=== PATIENT | male | born 1940 | race Caucasian/White ===

== ENCOUNTER 2018-06-21 12:42 | Inpatient (IN) | payer MEDICARE ==
[~2018-06-21] VITALS: Ht 182.9 cm; Wt 149.0 kg
[~2018-06-21 12:42] MED LIST: ADVAIR 500/501 EA INH; ALPRAZOLAM1 MG PO; AMBIEN5 MG PO; AMLODIPINE BESYL5 MG PO; ASPIRIN PO; ATORVASTATIN CA10 MG PO; CARVEDILOL PO; CITALOPRAM PO; D 2000; FLONASE16 GM; FUROSEMIDE40 MG PO; GABAPENTIN300 MG PO; HUMALOG SLIDING; K DUR10 MEQ PO; LANTUS 3ML100 UNITS/ SQ; LANTUS100 UNITS/ SQ; METFORMIN PO; METHOCARBAMOL750 MG PO; NORCO 10MG-325MG1 EA PO; QUINAPRIL HCL20 MG PO; SPIRONOLACTONE25 MG PO; SYNTHROID125 MCG PO; VIT B 12 PO; VIT D 2000; ZETIA10 MG PO
--- OUTSIDE RECORDS SUMMARY | 2018-06-21 12:46 | XMS REPORT ---
Author Author [facility] Address Unknown Phone Unavailable Care Team Providers Care Environmental Engineering Professor Name Role Phone Unavailable Unavailable Payers Payer Name Policy Type Policy Number Effective Date Expiration Date Problems This patient has no known problems. Allergies, Adverse Reactions, Alerts Allergy Name Allergy Type Status Severity Reaction(s) Onset Date Inactive Date Treating Clinician Comments Penicillins DA Active 2018-05-19 00:00:00 Penicillins DA Active 2017-02-20 00:00:00 Medications This patient has no known medications. Results Test Description Test Time Test Comments Text Results Atomic Results Result Comments BASIC METABOLIC PANEL 2018-05-19 15:02:00 SODIUM (test code=NA) 135 mmol/L 136-145 POTASSIUM (test code=K) 4.3 mmol/L 3.5-5.1 CHLORIDE (test code=CL) 100.0 mmol/L 98-107 CARBON DIOXIDE (test code=CO2) 25.0 mmol/L 21-32 ANION GAP (test code=GAP) 14.3 10-20 GLUCOSE (test code=GLU) 353 mg/dL 74-106 BLOOD UREA NITROGEN (test code=BUN) 12 mg/dL 7-18 GLOMERULAR FILTRATION RATE (test code=GFR) 59 mL/min >=60 Estimated GFR by using Modified MDRD formula.Chronic kidney disease is defined as either kidney damageor GFR <60 mL/min/1.73 m2 for >3 months. CREATININE (test code=CREAT) 1.20 mg/dL 0.7-1.3 BUN/CREATININE RATIO (test code=BUN/CREA) 9.8 10-20 CALCIUM (test code=CA) 8.7 mg/dL 8.5-10.1 BASIC METABOLIC [id number] 14:57:00* Test Item Value Reference Range Comments SODIUM (test code=NA) 135 mmol/L 136-145 POTASSIUM (test code=K) 4.3 mmol/L 3.5-5.1 CHLORIDE (test code=CL) 100.0 mmol/L 98-107 CARBON DIOXIDE (test code=CO2) mmol/L 21-32 ANION GAP (test code=GAP) 10-20 GLUCOSE (test code=GLU) mg/dL 74-106 BLOOD UREA NITROGEN (test code=BUN) mg/dL 7-18 GLOMERULAR FILTRATION RATE (test code=GFR) mL/min >=60 CREATININE (test code=CREAT) mg/dL 0.7-1.3 BUN/CREATININE RATIO (test code=BUN/CREA) 10-20 CALCIUM (test code=CA) mg/dL 8.5-10.1 CBC W/O [id number] 14:44:00* Test Item Value Reference Range Comments WHITE BLOOD CELL (test code=WBC) 5.6 K/mm3 4.5-12.5 RED BLOOD CELL (test code=RBC) 4.89 mill/mm3 4.0-5.8 HEMOGLOBIN (test code=HGB) 14.0 gram/dL 13.0-17.5 HEMATOCRIT (test code=HCT) 43.5 % 42.0-52.0 MEAN CELL VOLUME (test code=MCV) 89.0 fL 80-98 MEAN CELL HGB (test code=MCH) 28.6 picogram 27.0-33.0 MEAN CELL HGB CONCETRATION (test code=MCHC) 32.2 gram/dL 33.0-36.0 RED CELL DISTRIBUTION WIDTH (test code=RDW) 14.6 % 11.6-16.2 PLATELET COUNT (test code=PLT) 147 K/mm3 150-450 MEAN PLATELET VOLUME (test code=MPV) 11.3 fL 6.7-11.0 CBC W/O [id number] 14:43:00* Test Item Value Reference Range Comments WHITE BLOOD CELL (test code=WBC) K/mm3 4.5-12.5 RED BLOOD CELL (test code=RBC) mill/mm3 4.0-5.8 HEMOGLOBIN (test code=HGB) 14.0 gram/dL 13.0-17.5 HEMATOCRIT (test code=HCT) 43.5 % 42.0-52.0 MEAN CELL VOLUME (test code=MCV) fL 80-98 MEAN CELL HGB (test code=MCH) picogram 27.0-33.0 MEAN CELL HGB CONCETRATION (test code=MCHC) gram/dL 33.0-36.0 RED CELL DISTRIBUTION WIDTH (test code=RDW) % 11.6-16.2 PLATELET COUNT (test code=PLT) K/mm3 150-450 MEAN PLATELET VOLUME (test code=MPV) fL 6.7-11.0 - XR L-SPINE 2/3 [id number] 14:23:00 FAX: Rodney Campoverde [place]: St: REG Name: FERNANDA GALLEGOS [facility] : 09/[birth year]/18 [birth year] Age/S: 77/M [address] [facility] Unit #: [id number] Loc: [place] [address] Phys: Rodney Campoverde MD Acct: [id number] Dis Date: Status: REG ER PHONE #: [phone] Exam Date: 05/19/2018 1347 FAX #: [phone] Reason: fall, pain EXAMS: CPT CODE: [id number] XR L-SPINE 2/3 VIEWS [id number] HISTORY: Fall and pain. COMPARISON: None available. 3 views of the lumbar spine: No acute fracture or dislocation. Vertebral body heights are main tained. Bridging anterolateral marginal osteophytes. SI joints are preserv ed. Sacralization of the L5 vertebral body. IMPRESSION: No acute fracture or dislocation. Advanced degenerative change. at 1423 Reported and signed by: Luisito Cardoza M.D. CC: Rodney Campoverde MD Technologist: ANTIONE QUINTERO RT(R) Trnhialivia Date/Time/By: 05/19 (7240) : By: [email or web address] Orig Print D/T: S: 05/19/2018 (5771) PAGE 1 Signed Report - XR HIP BI W/[id number] 13:52:00 FAX: Rodney Campoverde [place]: St: REG Name: FERNANDA GALLEGOS [facility] : 09/30/18 41 Age/S: 77/M [address] [facility] Unit #: [id number] Loc: [place] [address] Phys: Rodney Campoverde MD Acct: [id number] Dis Date: Status: REG ER PHONE #: [phone] Exam Date: 05/19/2018 1347 FAX #: [phone] Reason: fall, pain EXAMS: CPT CODE: [id number] XR HIP BI W/PELVIS [id number] HISTORY: Fall and pain. COMPARISON: None available. 3 views each of the right and left hips: Pelvic ring is intact on a single view this is well opposed. SI joints are preserved. Both hip joints are mildly narrowed. No AVN of the lunate or the scaphoid bones. Osteophytes from the greater trochanters bilaterally. Trabecular pattern and mineralization are normal bilat erally. SI joints are preserved. IMPRESSION: N o acute fracture or dislocation. Narrowed hip joints. at 7390 Reported and signed by: Luisito Cardoza M.D. CC: Rodney Campoverde MD Technologist: QUINN QUINTERO RT(R) Trnscrd Date/Time/By: 05/19/2018 (6530) : By: [email or web address] Orig Print D/T: S: 05/19/2018 (7793) PAGE 1 Signed Report
[2018-06-21 15:54] LABS: BASOPHILS % 0.3 % (0.0-1.0); EOSINOPHILS % 0.2 % (0.0-6.0); HEMATOCRIT 40.6 % (38.2-49.6); HEMOGLOBIN 13.3 g/dL (14.0-18.0); LYMPHOCYTES # (AUTO) 1.8 (1.0-3.2); MEAN CORPUSCULAR HGB CONC 32.8 g/dL (31-35); MEAN CORPUSCULAR VOLUME 88.5 fL (81-99); MONOCYTES # (AUTO) 1.5 (0.2-0.8); MONOCYTES % 15.6 % (4.4-11.3); NEUTROPHILS # (AUTO) 6.4 (2.1-6.9); NEUTROPHILS % 64.9 % (38.7-80.0); PLATELET COUNT 181 x10e3/uL (140-360); RED BLOOD COUNT 4.59 x10e6/uL (4.3-5.7); RED CELL DISTRIBUTION WIDTH 15.4 % (11.7-14.4)
[2018-06-21 16:09] LABS: ALBUMIN 3.9 g/dL (3.5-5.0); ANION GAP 15.2 mmol/L (8-16); CALCIUM 9.2 mg/dL (8.4-10.2); CREATININE, SERUM 1.48 mg/dL (0.72-1.25); POTASSIUM 4.2 mmol/L (3.5-5.1)
[2018-06-21 16:26] LABS: CLARITY,URINE HAZY (CLEAR); COLOR,URINE YELLOW (YELLOW); LEUKOCYTE ESTERASE ,URINE NEGATIVE (NEGATIVE); NITRITE,URINE NEGATIVE (NEGATIVE); PROTEIN,URINE DIPSTICK NEGATIVE (NEGATIVE)
[2018-06-21 16:27] LABS: BACTERIA,URINE FEW /HPF; BILIRUBIN,URINE NEGATIVE (NEGATIVE); EPITHELIAL CELLS,URINE FEW /LPF; KETONES,URINE NEGATIVE (NEGATIVE); URINE UROBILINOGEN 0.2 mg/dL (0.2 - 1); WBC,URINE (MAN) 0-5 /HPF (0-5)
[2018-06-21 17:15] LABS: BAND NEUTROPHILS % (MANUAL) 6 %; LYMPHOCYTES % (MANUAL) 14 % (19-48); MONOCYTES % (MANUAL) 12 % (3.4-9.0); NEUTROPHILS % (MANUAL) 68 % (40-74); PLATELET ESTIMATE ADEQUATE; PLATELET MORPHOLOGY COMMENT NORMAL; RBC MORPHOLOGY COMMENT NORMAL
[2018-06-21] MEDS ORDERED: DEXTROSE 50% SYRINGE 50 ML IV PRN (17:30)
[2018-06-21] MEDS ORDERED: ONDANSETRON HCL INJ 2MG/ML 2ML 2 MG/ML VIAL IV PRN (17:30)
[2018-06-21] MEDS: MORPHINE SULFATE INJ 4 MG/ML INJ 1ML IV PRN (18:12)
[2018-06-21] MEDS: SODIUM CHLORIDE 0.9% 1000ML 1,000 ML IV SCH (18:12)
[2018-06-21] MEDS: CEFEPIME 1GM/NS 0.9% 50 ML 50 ML IV SCH (18:12)
[2018-06-21] MEDS: VANCOMYCIN 1GM/NS 250 ML 250 ML IV SCH (18:47)
--- NOTE | 2018-06-21 19:00 | NUR ---
received report from RAMON Blanco. pt awake alert skin w/d resp nonlab. nad noted.
--- NOTE | 2018-06-21 20:55 | NUR ---
sl 20g racf infusing ns, site appears wnl. awake alert skin w/d resp nonlab, nad noted
[2018-06-21 21:05] VITALS: BP 157/71
[2018-06-21] MEDS: INSULIN LISPRO 100 UNIT/1 ML 3ML VIAL SQ SCH (22:56)
[2018-06-22] VITALS (10 sets, daily range): BP systolic 128–185; BP diastolic 46–77
--- NOTE | 2018-06-22 00:30 | NUR ---
Patient received lying in bed. No complaints of pain. Respirations even and unlabored. Fall precautions implemented. Patient instructed to call for assistance when needed. Call light within reach.
[2018-06-22] MEDS: MORPHINE SULFATE INJ 4 MG/ML INJ 1ML IV PRN ×3 (01:41→23:22)
[2018-06-22] MEDS: SODIUM CHLORIDE 0.9% 1000ML 1,000 ML IV SCH ×3 (01:41→17:31)
[2018-06-22] MEDS: CEFEPIME 1GM/NS 0.9% 50 ML 50 ML IV SCH ×2 (05:29→17:31)
[2018-06-22 06:09] LABS: BASOPHILS % 0.3 % (0.0-1.0); EOSINOPHILS % 0.4 % (0.0-6.0); HEMATOCRIT 38.3 % (38.2-49.6); HEMOGLOBIN 12.5 g/dL (14.0-18.0); LYMPHOCYTES # (AUTO) 2.6 (1.0-3.2); LYMPHOCYTES % 25.6 % (18.0-39.1); MEAN CORPUSCULAR HEMOGLOBIN 29.6 pg (28-32); MEAN CORPUSCULAR HGB CONC 32.6 g/dL (31-35); MEAN CORPUSCULAR VOLUME 90.5 fL (81-99); MONOCYTES # (AUTO) 2.1 (0.2-0.8); MONOCYTES % 20.9 % (4.4-11.3); NEUTROPHILS # (AUTO) 5.2 (2.1-6.9); NEUTROPHILS % 52.1 % (38.7-80.0); PLATELET COUNT 175 x10e3/uL (140-360); RED BLOOD COUNT 4.23 x10e6/uL (4.3-5.7); RED CELL DISTRIBUTION WIDTH 15.6 % (11.7-14.4)
[2018-06-22] MEDS: VANCOMYCIN 1GM/NS 250 ML 250 ML IV SCH ×2 (06:25→19:03)
[2018-06-22 06:40] LABS: CALCIUM 8.6 mg/dL (8.4-10.2); CREATININE, SERUM 1.19 mg/dL (0.72-1.25)
[2018-06-22] MEDS ORDERED: ALPRAZOLAM 1 MG TAB PO PRN (07:30)
[2018-06-22] MEDS ORDERED: INSULIN GLARGINE SQ SCH ×2 (07:30→16:30)
[2018-06-22] MEDS ORDERED: SALMETEROL/FLUTICASONE 500/50 INH SCH (07:30)
[2018-06-22] MEDS ORDERED: HYDROCODONE/APAP 10MG-325MG TAB PO PRN (07:30)
[2018-06-22] MEDS ORDERED: SALMETEROL/FLUTICASONE 500/50 INH PRN (08:15)
[2018-06-22] MEDS ORDERED: METFORMIN 1000 MG PO SCH (09:00)
[2018-06-22] MEDS ORDERED: CARVEDILOL 25 MG PO SCH (09:00)
[2018-06-22] MEDS ORDERED: NON-FORMULARY MEDICATION (Quinapril Hcl 40 MG) PO SCH (09:00)
[2018-06-22] MEDS ORDERED: VIT B PO SCH (09:00)
[2018-06-22] MEDS ORDERED: METFORMIN HCL 500 MG TAB PO SCH (09:00)
[2018-06-22] MEDS ORDERED: NON-FORMULARY MEDICATION ([Aspirin] 81 MG) PO SCH (09:00)
[2018-06-22] MEDS ORDERED: CITALOPRAM 20 MG PO SCH (09:00)
[2018-06-22 09:33] LABS: LYMPHOCYTES % (MANUAL) 19 % (19-48); MONOCYTES % (MANUAL) 25 % (3.4-9.0); NEUTROPHILS % (MANUAL) 53 % (40-74)
[2018-06-22 09:35] LABS: PLATELET ESTIMATE ADEQUATE; PLATELET MORPHOLOGY COMMENT NORMAL; RBC MORPHOLOGY COMMENT NORMAL
[2018-06-22] MEDS: QUINAPRIL HCL 20 MG TAB PO SCH (10:29)
[2018-06-22] MEDS: CARVEDILOL 12.5 MG TAB PO SCH ×2 (10:30→17:31)
[2018-06-22] MEDS: EZETIMIBE 10 MG TAB PO SCH (10:30)
[2018-06-22] MEDS: CITALOPRAM HYDROBROMIDE 20 MG TAB PO SCH (10:30)
[2018-06-22] MEDS: FUROSEMIDE 40 MG TAB PO SCH (10:30)
[2018-06-22] MEDS: CYANOCOBALAMIN 1,000 MCG TAB PO SCH (10:30)
[2018-06-22] MEDS: SPIRONOLACTONE 25 MG TAB PO SCH (10:30)
[2018-06-22] MEDS: ASPIRIN 81 MG ENTERIC COATED PO SCH (10:30)
[2018-06-22] MEDS: LEVOTHYROXINE SODIUM 125 MCG TAB PO SCH (10:30)
[2018-06-22] MEDS: AMLODIPINE BESYLATE 5 MG TAB PO SCH ×2 (10:30→17:31)
[2018-06-22] MEDS: INSULIN LISPRO 100 UNIT/1 ML 3ML VIAL SQ SCH ×3 (11:30→21:35)
[2018-06-22] MEDS: HYDROCODONE/APAP 10MG-325MG TAB PO PRN (14:09)
--- NOTE | 2018-06-22 15:50 | NUR ---
Wound care provided at this time. Betadine applied to site. Clean gauze over heels and rewrapped in clean SILVIA bandage. [place] administered before to prevent pain during wound care. Pt tolerated well.
[2018-06-22] MEDS: METFORMIN HCL 500 MG TAB PO SCH (17:31)
[2018-06-22] MEDS: INSULIN GLARGINE 100 UNITS/ML VIAL SQ SCH (19:04)
[2018-06-22] MEDS ORDERED: ATORVASTATIN 10 MG TAB PO SCH (21:00)
[2018-06-22] MEDS: ZOLPIDEM TARTRATE 5 MG TAB PO SCH (21:35)
[2018-06-22] MEDS: GABAPENTIN 300 MG CAP PO SCH (21:35)
[2018-06-22] MEDS: ATORVASTATIN 40 MG TAB PO SCH (21:35)
[2018-06-23] VITALS (7 sets, daily range): BP systolic 112–134; BP diastolic 56–61
[2018-06-23] MEDS: HYDROCODONE/APAP 10MG-325MG TAB PO PRN (00:02)
--- NOTE | 2018-06-23 02:20 | History and Physical ---
REASON FOR ADMISSION: The patient came in with difficulty to maintain balance, history of frequent falls, and erythema and tenderness to bilateral heels. HISTORY OF PRESENTING ILLNESS: Mr. Shahriar Odonnell, who with a known history of uncontrolled diabetes, uncontrolled hypertension and history of coronary artery disease, CHF, history of hyperlipidemia, neuropathy, was in his usual state of health until the patient started to have frequent falls and could not be controlled at home. The patient was in this state for about the last 2 weeks. Also had cellulitis and erythema and tenderness into the heels. The patient was unable to care for himself and the patient was brought to the emergency room, was found to have cellulitis of the bilateral heels and admitted to observation unit for IV medication and also for control of blood pressure and blood sugars. PAST MEDICAL HISTORY: As mentioned above, history of hypertension, history of anxiety, history of hyperlipidemia, history of depression, history of COPD, history of hypothyroidism, history of depression, and history of insomnia. MEDICINES: He takes at home are acetaminophen with codeine 1 tablet 3 times a day, alprazolam 1 mg 3 times a day p.r.n., amlodipine 5 mg daily, atorvastatin 40 mg at bedtime, Zetia 10 mg at nighttime, fluticasone nasal spray once a day, Lasix 40 mg daily, gabapentin 300 mg daily, Lantus 35 units subcu and 65 units in the morning and bedtime, levothyroxine 125 mcg, Advair 500/50, aldactone 25 mg, and zolpidem 5 mg. The patient also takes carvedilol 25 mg twice a day, citalopram 20 mg daily, metformin 1000 mg twice a day. PAST SURGICAL HISTORY: Includes history of AICD placement. The patient had removal of ingrown toenails. FAMILY HISTORY: History of diabetes and hypertension and coronary artery disease. REVIEW OF SYSTEMS: Negative for chest pain. No shortness of breath. No nausea, vomiting, or diarrhea. No constipation. No rectal bleeding. No hematochezia. No hematemesis. Positive for neuropathy. Positive for decreased sensation in lower extremity. History of falling frequently and history of diplopia. No blurry vision either. ALLERGIES: THE PATIENT IS ALLERGIC TO PENICILLIN. PHYSICAL EXAMINATION: VITAL SIGNS: Temperature 98.7, pulse of 72, respirations of 21, blood pressure is 129/46, pulse oximetry of 98% on room air. HEENT: Normocephalic, atraumatic. Pupils are reactive to light and accommodation. CVS: S1, S2 normal. Regular rate and rhythm. ABDOMEN: Nontender, nondistended. EXTREMITIES: Decreased sensation in bilateral lower extremities. SKIN: Stage II foul smelling left heel ulcer and right lateral foot ulcer 5th metacarpophalangeal joint. EXTREMITIES: Decreased range of motion in the ankle with osteoarthritic changes. LABORATORY DATA: White count is 9.87, today is 10.05; hemoglobin of 13.3, hematocrit of 40.6. The patient does not have a left shift. Chemistries; sodium of 136 with a creatinine of 1.48. Estimated GFR is 46 with a glucose of 222. The patient's urine was essentially normal. MICROBIOLOGY: Urine cultures are pending. IMAGING: None were done yesterday. ASSESSMENT: 1. Cellulitis of bilateral lower extremities with possible osteomyelitis. A bone scan will be done to rule out osteo. 2. Urinary tract infection, catheter associated. We will continue to monitor it and culture has been done. 3. Diabetes mellitus with neuropathy. We will go ahead and also do arterial Doppler vascularity. 4. Neuropathy, controlled. The patient is on gabapentin and we will continue that. 5. Uncontrolled diabetes mellitus. We will continue with sliding scale. Consult with Dr. Zacarias will also would be done for chronic cellulitis of the lower extremity. Cultures will be taken from the foot and also a consult with Dr. Goodwin has been done. FURTHER RECOMMENDATION AND CLINICAL COURSE: The patient will need long-term care. We will start the process right now, but the patient will be seen by the consultants and we will continue to monitor the patient. MD DENIS Tesfaye/MODL /[id number]
[2018-06-23] MEDS: MORPHINE SULFATE INJ 4 MG/ML INJ 1ML IV PRN ×2 (03:35→22:06)
[2018-06-23] MEDS: SODIUM CHLORIDE 0.9% 1000ML 1,000 ML IV SCH ×3 (03:37→17:21)
[2018-06-23] MEDS: CEFEPIME 1GM/NS 0.9% 50 ML 50 ML IV SCH ×2 (05:36→17:21)
[2018-06-23] MEDS: LEVOTHYROXINE SODIUM 125 MCG TAB PO SCH (05:43)
[2018-06-23 05:50] LABS: BASOPHILS % 0.4 % (0.0-1.0); EOSINOPHILS % 0.5 % (0.0-6.0); HEMOGLOBIN 10.8 g/dL (14.0-18.0); LYMPHOCYTES % 38.7 % (18.0-39.1); MEAN CORPUSCULAR HEMOGLOBIN 29.3 pg (28-32); MEAN CORPUSCULAR HGB CONC 32.7 g/dL (31-35); MEAN CORPUSCULAR VOLUME 89.7 fL (81-99); MONOCYTES # (AUTO) 1.3 (0.2-0.8); MONOCYTES % 16.1 % (4.4-11.3); NEUTROPHILS # (AUTO) 3.4 (2.1-6.9); NEUTROPHILS % 43.8 % (38.7-80.0); PLATELET COUNT 145 x10e3/uL (140-360); RED BLOOD COUNT 3.68 x10e6/uL (4.3-5.7); RED CELL DISTRIBUTION WIDTH 15.5 % (11.7-14.4)
[2018-06-23] MEDS: VANCOMYCIN 1GM/NS 250 ML 250 ML IV SCH ×2 (06:13→18:33)
[2018-06-23 06:19] LABS: ANION GAP 11.7 mmol/L (8-16); CALCIUM 8.2 mg/dL (8.4-10.2); CREATININE, SERUM 1.52 mg/dL (0.72-1.25); POTASSIUM 3.7 mmol/L (3.5-5.1)
[2018-06-23] MEDS: INSULIN LISPRO 100 UNIT/1 ML 3ML VIAL SQ SCH ×4 (07:30→21:00)
[2018-06-23] MEDS: SPIRONOLACTONE 25 MG TAB PO SCH (08:33)
[2018-06-23] MEDS: QUINAPRIL HCL 20 MG TAB PO SCH (08:33)
[2018-06-23] MEDS: ASPIRIN 81 MG ENTERIC COATED PO SCH (08:33)
[2018-06-23] MEDS: CITALOPRAM HYDROBROMIDE 20 MG TAB PO SCH (08:33)
[2018-06-23] MEDS: METFORMIN HCL 500 MG TAB PO SCH ×2 (08:33→17:21)
[2018-06-23] MEDS: CARVEDILOL 12.5 MG TAB PO SCH ×2 (08:33→17:21)
[2018-06-23] MEDS: FUROSEMIDE 40 MG TAB PO SCH (08:34)
[2018-06-23] MEDS: AMLODIPINE BESYLATE 5 MG TAB PO SCH ×2 (08:34→17:21)
[2018-06-23] MEDS: CYANOCOBALAMIN 1,000 MCG TAB PO SCH (08:34)
[2018-06-23] MEDS: EZETIMIBE 10 MG TAB PO SCH (08:34)
[2018-06-23] MEDS: INSULIN GLARGINE 100 UNITS/ML VIAL SQ SCH ×2 (09:05→18:21)
--- NOTE | 2018-06-23 13:17 | Progress Note ---
DATE: SUBJECTIVE: The patient is here for cellulitis of the bilateral lower feet and also heels, questionable osteomyelitis. Currently, the patient is complaining of pain 8/10 in intensity. Has been on pain medications. No chest pain. No shortness of breath noted. OBJECTIVE: VITAL SIGNS: Temperature is 96.5, pulse of 69, respiration of 20, blood pressure is 124/56, pulse oximetry of 92%. HEENT: Normocephalic, atraumatic. The patient does have signs of sleep apnea. CVS: S1 and S2 normal. Regular rate, rhythm and distant. LUNGS: Decreased air entry into lung france in the bottom. ABDOMEN: Protuberant, nontender, nondistended. EXTREMITIES: Bilateral feet are bandaged. LABORATORY VALUES: Today's white count is 7.8, hemoglobin of 10.8, hematocrit of 33.0. Chemistries; show a BUN of 24, creatinine of 1.52, glucose has been running in the 190s to 200s. The patient's microbiology, urine cultures shows no growth in 36 to 48 hours. No culture from the wound has been taken yet. ASSESSMENT AND PLAN: 1. Cellulitis of bilateral lower extremities with possible osteomyelitis. Bone scan to be ordered and has been ordered and has been not done. 2. Urinary tract infection. Continue on antibiotics. 3. Diabetes mellitus with neuropathy and angiopathy. Plan is to do arterial Doppler to assess for vascular insufficiency. 4. Uncontrolled diabetes mellitus. Continue with sliding scale and restart his home medication. Further recommendation per clinical course. Consult has been ordered for Dr. Goodwin and Dr. Zacarias for Infectious Disease. Further recommendation per clinical course. The patient also will need a wound care consult. Also disposition once acute treatment has been done. The patient will need transfer to either halfway facility or long-term care facility. MD DENIS Tesfaye/MODL /[id number]
--- NOTE | 2018-06-23 13:54 | NUR ---
Wound culture obtained from L heel on pt's foot as ordered. Was not able to obtain wound culture from R foot due to skin being intact/ covered in black scabbing. Culture sent to lab at this time.
--- NOTE | 2018-06-23 14:43 | NUR ---
WOUND CARE CONSULT: THIS IS A 77 YEAR OLD MALE PATIENT ADMITTED TO [facility] FOR INFECTED DIABETIC FOOT ULCER TO THE LEFT HEEL AND UNABLE TO WALK AND CARE FOR. HEAD TO TOE SKIN ASSESSMENT PERFORMED. PATIENT HAS BILATERAL UPPER EXTREMITY BRUISES. PATIENT HAS A STAGE 2 PRESSURE ULCER TO THE LEFT BUTTOCKS MEASURING 0.5X0.5X0.1CM. PATIENT HAS A LEFT HEEL DIABETIC ULCER GROVER 2, MEASURING 2X2.5X0.3CM, 95% ESCHAR AND 5% SLOUGH NOTED TO WOUND BED. PATIENT HAS A RIGHT HEEL DEEP TISSUE INJURY MEASURING [id number]. PATIENT HAS A RIGHT 5TH METATARSAL HEAD DEEP TISSUE INJURY MEASURING [id number]. PATIENT HAS A RIGHT GREAT TOE GROVER 1 DIABETIC ULCER MEASURING 0.7X0.8X0CM, 100% STABLE ESCHAR TO WOUND BED. PATIENT HAS 1+ PITTING EDEMA TO BILATERAL LOWER LEGS, PULSES UNABLE TO PALPATE. DR. SIMMS FOLLOWS PATIENT OUTPATIENT AND HE HAS BEEN CONSULTED TO FOLLOW THE PATIENT. DR. SIMMS EXPECTED TO ROUND TODAY PER PATIENT. LABS: WBC7.81 [id number] WOUND CULTURE PENDING. URINE CULTURE = NEGATIVE LOWER EXTREMITY U/S = PENDING. MEDICATIONS: VANCOMYCIN CEFEPIME RECOMMENDATIONS: -CONTINUE ALTERNATING PRESSURE RELIEF MATTRESS. -APPLY BILATERAL HEEL PROTECTORS WITH PILLOW SUSPENSION. -TURN EVERY 2 HOURS AND PRN. -NURSING TO APPLY BETADINE WET TO DRY TO LEFT HEEL DIABETIC ULCER GROVER 2 AND RIGHT GREAT TOE GROVER 1 DIABETIC ULCER; COVER WITH 4X4 GAUZE, KERLIX; CHANGE DAILY AND PRN. -NURSING TO APPLY VENELEX THEN ALLEVYN FOAM DRESSING TO STAGE 2 PRESSURE ULCER TO LEFT BUTTOCK; CHANGE DAILY AND PRN. -NURSING TO APPLY VENELEX THEN ALLEVYN FOAM DRESSING TO RIGHT HEEL DTI AND RIGHT 5TH MET HEAD DTI; CHANGE DAILY AND PRN. THANK YOU FOR THIS WOUND CARE CONSULTATION. Addendum: 06/23/18 at 1512 by Ebony Fierro RN Amended: Links added.
--- NOTE | 2018-06-23 15:41 | NUR ---
WENT TO ROOM NO ONE THERE WILL ATTEMPT AGAIN LATER
--- NOTE | 2018-06-23 17:25 | Diagnostic Imaging Report ---
Bone Scan, three-phase - feet and ankles Reason for exam: 77 M with Stage II diabetic foot ulcer at left heel. Cellulitis of both lower legs and feet. Severe neuropathy with diffuse foot pain. Also ulcer at right 5th metatarsophalangeal joint. Radiopharmaceutical: Tc-99m MDP 24 mCi Comparison: None available Following intravenous administration of the radiopharmaceutical, dynamic flow and immediate blood pool images of the feet and ankles followed by 5-hour delayed spot images were obtained. Flow and blood pool images show diffusely symmetric distribution of tracer activity to the feet and ankles with focal increased tracer activity at the right 5th toe and superficially overlying the left calcaneus posteriorly. The delayed images show multiple focal areas of increased tracer activity in the bilateral feet and ankles consistent with degenerative and neuropathic changes. Increased tracer is seen along the right 5th metatarsal and also superficially around the left calcaneus posteriorly. Impression: Suspect osteomyelitis in the right 5th metatarsal. Uptake at the left calcaneus posteriorly appears to be within soft tissue. Bone scan lacks specificity in the setting of diabetic foot ulcers. A labeled white blood cell study would add specificity to the evaluation. Signed by: Dr. Margarita Mckeon M.D. on 06/23/2018 5:21 PM
--- NOTE | 2018-06-23 19:29 | NUR ---
Received report from previous nurse. Patient A&Ox3. No pain or distress noted. Call light within reach.
--- NOTE | 2018-06-23 19:34 | Diagnostic Imaging Report ---
Foot complete left Indication: Infection Technique: Portable A.P. oblique and lateral views of the left foot obtained Comparison: None Findings: There are anchors in the posterior calcaneus with prominent plantar and calcaneal spurs. There are degenerative changes of the ankle and midfoot. Moderate degenerative changes of the first MTP and mild generative changes of the first IP joint. No fracture or dislocation. No focal demineralization or focal osseous lesion. There are calcifications throughout the vascular structures. No focal subcutaneous edema or skin ulceration identified. IMPRESSION: No radiographic evidence of osteomyelitis. Degenerative changes as described above. Signed by: Dr. Xander Salguero MD on 06/23/2018 7:31 PM
--- NOTE | 2018-06-23 19:37 | Diagnostic Imaging Report ---
Foot complete CPT code: 05762 Indication: Infection ^3 view ^[id number] ^1820 Technique: Portable A.P., oblique and lateral views of the right foot obtained. Comparison: None Findings: There are prominent plantar spurs. There are vlla-qt-[id number] degenerative changes of the tibiotalar joint and midfoot. There is a mildly displaced fracture through the base of the proximal phalanx of the first digit with extension to the articular surface. There are degenerative changes of the IP joint of the first digit. There is no evidence of periosteal new bone formation or skin ulceration. Multiple arterial calcifications are present throughout the soft tissues. No skin ulceration is appreciated or evidence of subcutaneous emphysema. IMPRESSION: No radiographic evidence of osteomyelitis. Fracture of the proximal phalanx of the first digit as described above. Signed by: Dr. Xander Salguero MD on 06/23/2018 7:34 PM
[2018-06-23] MEDS: ATORVASTATIN 40 MG TAB PO SCH (21:43)
[2018-06-23] MEDS: ZOLPIDEM TARTRATE 5 MG TAB PO SCH (21:43)
[2018-06-23] MEDS: GABAPENTIN 300 MG CAP PO SCH (21:43)
--- NOTE | 2018-06-23 23:35 | Consultation ---
DATE OF CONSULTATION: REASON FOR CONSULTATION: Infection of his foot osteomyelitis. Thank you so much for asking me to see this patient. HISTORY OF PRESENT ILLNESS: This patient, who is a very pleasant 77-year-old white male with history of diabetes mellitus, history of neuropathy, hypertension, coronary artery disease, congestive heart failure, hyperlipidemia, and obesity. The patient is telling me he has been having problem with his feet for several years, but for the last few weeks, he has been having ulcers on his feet. He has been seeing Podiatry, Dr. Goodwin, as outpatient. He took a couple of courses of oral antibiotic, but it has been getting progressively worse over the last 2 weeks and in spite all of that, there is redness and swelling in his feet going to his heel. The ulcers are getting progressively worse. The pain is becoming so severe that he cannot even stand on his feet, so he came to the emergency room. Originally, he was admitted to observation with IV antibiotic and glucose control; however, the workup found he had osteomyelitis, so I am asked to see him. He is currently lying in bed. He stated he is feeling better at the present time. The patient has no other complaints, except for the pain in his feet, otherwise lying in bed comfortably. PAST MEDICAL HISTORY: Significant for hypertension, obesity, anxiety, hyperlipidemia, depression, COPD, hypothyroidism, insomnia, and severe neuropathy. HOME MEDICATIONS: He is on acetaminophen, codeine, Tylenol tablet 1 p.o. three times a day, alprazolam 1 mg p.o. three times a day, amlodipine 5 mg p.o. daily, atorvastatin 40 mg daily, Zetia 10 mg at night. He is on fluticasone nasal spray once a day, Lasix 40 mg daily, gabapentin 300 mg daily, and insulin subcutaneous 65 units in the morning of the Lantus and he has also 65 before he goes to bed, levothyroxine 125 mcg daily, Advair 500/50, Aldactone 25, zolpidem 5 mg, carvedilol 25 mg p.o. twice a day, citalopram 20 mg p.o. daily, and metformin 1000 mg p.o. twice a day. PAST SURGICAL HISTORY: He had multiple debridements, he had ingrown toenails, and he also had AICD placement. FAMILY HISTORY: Hypertension and coronary artery disease. SOCIAL HISTORY: He denies smoking, drug abuse, alcohol abuse, but he does drink beer. REVIEW OF SYSTEMS: At the present time: GENERAL: There is no fever and no chills, but he said he cannot walk because of severity of the pain. HEENT: There is no headache, visual changes, or hearing changes. SKIN: There is no rash, but he has some bruising after he hit the door and has bruising on his right hand. JOINT: He has chronic pain in the joint. PULMONARY: He has chronic shortness of breath, but some minimal dry cough. LABORATORY DATA: White count 9.87, hemoglobin 13, hematocrit 40. His sodium 133, potassium 3.7, creatinine 1.52, glucose 197. MEDICATIONS: He is on metformin, Coreg, Norvasc , Lasix, aspirin, , vancomycin. IMAGING STUDIES: He had a bone scan, which was done showed osteomyelitis of the right 5th metatarsal. Uptake in the left calcaneus, which appears to be within soft tissue. PHYSICAL EXAMINATION: GENERAL: He is currently alert and oriented, does not seem to be in acute distress. VITAL SIGNS: Stable, currently afebrile. HEENT: He is not icteric. NECK: Supple. CHEST: Clear bilateral. HEART: S1 and S2. No S3, S4, or murmur. ABDOMEN: Soft. Bowel sounds present. No tenderness. Obese. No hepatosplenomegaly. EXTREMITIES: No edema. His pulse distally was weak. IMPRESSION: 1. Foot ulcer bilateral, concerned about osteomyelitis on bone scan noted. I would recommend to obtain bilateral x-ray of the feet. Podiatry has been consulted. We would also recommend Vascular workup to rule out severe peripheral vascular disease. 2. In terms of his diabetes and hypothyroidism, continue as ordered. 3. History of congestive heart failure. 4. Neuropathy. 5. Diabetes mellitus. 6. Chronic obstructive pulmonary disease. 7. Coronary artery disease. 8. Hypertension. 9. Diabetes mellitus. 10. Severe neuropathy. 11. Obesity. So to summarize, bilateral lower extremity cellulitis, concerned about osteomyelitis, abnormal bone scan, obtain x-ray. May need MRI. Also, recommend to obtain vascular workup. Internal Medicine is following. We will follow with you. MD GHISLAINE Alan/VINICIUS /[id number]
[2018-06-24] VITALS (8 sets, daily range): BP systolic 108–158; BP diastolic 54–68
--- NOTE | 2018-06-24 00:44 | Consultation ---
DATE OF CONSULTATION: CHIEF COMPLAINT AND HISTORY OF CHIEF COMPLAINT: Mr. Shahriar Odonnell is a most pleasant 77-year-old gentleman with severe pain in bilateral feet, worst ulcer is on the posterolateral aspect of the left heel. This is full thickness through skin and subcutaneous tissue measuring approximately 3 cm in circumference. There is also a wound sub-fifth, right foot covered with a darkened dry eschar. The patient is here for a complaint of cellulitis, bilateral feet. PREVIOUS MEDICAL HISTORY: Quite significant including diabetes, hypertension, anxiety, hyperlipidemia, and COPD. REVIEW OF SYSTEMS: The patient has no other complaint, bilateral foot pain and ulcerations currently. ALLERGIES: HE IS ALLERGIC TO PENICILLIN. PHYSICAL EXAMINATION: EXTREMITIES: Evaluation of the lower extremity vascular status, the patient has nonpalpable pedal pulses in the dorsalis pedis and posterior tibial. SKIN: Temperature is warm to cool. Capillary refill is sluggish, greater than 10 seconds. NEUROLOGICAL: The patient has a loss of protective sensation as evidenced by Decker-Mignon monofilament testing. DERMATOLOGICAL: Chronic ulceration posterolateral aspect of the left heel, full thickness through skin, subcutaneous tissue, approximately 3 cm in circumference with a necrotic wound base and surrounding cellulitis. There is a 2nd wound on the plantar aspect of the right 5th metatarsal with a thickened dry eschar overlying, and bone scan shows probable osteomyelitis of the right 5th metatarsal. No osteomyelitis is noted on the left heel. DIAGNOSES: Cellulitis, probable osteomyelitis, chronic wounds, bilateral feet. At this point, radiographs have been ordered and he will need further workup for possible osteo. Dr. Zacarias is on-board and has initiated IV antibiotics. The wounds will need debridement, bilateral feet and local wound care. We will follow accordingly. NICK Carmen/VINICIUS /[id number]
[2018-06-24 05:43] LABS: ANION GAP 10.5 mmol/L (8-16); BLOOD UREA NITROGEN 22 mg/dL (7-26); BUN/CREATININE RATIO 20 (6-25); CALCIUM 8.2 mg/dL (8.4-10.2); CARBON DIOXIDE 23 mmol/L (22-29); CHLORIDE 105 mmol/L (98-107); CREATININE, SERUM 1.09 mg/dL (0.72-1.25); EST GLOMERULAR FILTRATION RATE > 60 ML/MIN (60-); POTASSIUM 3.5 mmol/L (3.5-5.1); SODIUM 135 mmol/L (136-145)
[2018-06-24] MEDS: CEFEPIME 1GM/NS 0.9% 50 ML 50 ML IV SCH ×2 (05:43→17:16)
[2018-06-24 05:44] LABS: GLUCOSE 50 mg/dL (74-118)
[2018-06-24] MEDS: LEVOTHYROXINE SODIUM 125 MCG TAB PO SCH (05:44)
[2018-06-24] MEDS: VANCOMYCIN 1GM/NS 250 ML 250 ML IV SCH ×2 (06:25→18:00)
--- NOTE | 2018-06-24 07:28 | NUR ---
Walking rounds done and report received. patient is awake and alertx3 in NAD. POC discussed. Patient instructed to call for assistance as needed and verbalized understanding. Bed in lowest position, locked and call chance within reach.
--- NOTE | 2018-06-24 07:29 | NUR ---
Gave report to oncoming nurse. NO pain or distress noted. Call light within reach.
[2018-06-24] MEDS: INSULIN LISPRO 100 UNIT/1 ML 3ML VIAL SQ SCH ×4 (07:30→20:51)
[2018-06-24] MEDS: SODIUM CHLORIDE 0.9% 1000ML 1,000 ML IV SCH ×4 (09:25→20:51)
[2018-06-24] MEDS: INSULIN GLARGINE 100 UNITS/ML VIAL SQ SCH ×2 (09:30→16:30)
[2018-06-24] MEDS: SPIRONOLACTONE 25 MG TAB PO SCH (09:35)
[2018-06-24] MEDS: METFORMIN HCL 500 MG TAB PO SCH ×2 (09:35→17:15)
[2018-06-24] MEDS: CITALOPRAM HYDROBROMIDE 20 MG TAB PO SCH (09:35)
[2018-06-24] MEDS: ASPIRIN 81 MG ENTERIC COATED PO SCH (09:35)
[2018-06-24] MEDS: BALSAM PERU/CASTOR OIL 5 GM OINT...G. TP SCH (09:36)
[2018-06-24] MEDS: FUROSEMIDE 40 MG TAB PO SCH (09:36)
[2018-06-24] MEDS: CYANOCOBALAMIN 1,000 MCG TAB PO SCH (09:36)
[2018-06-24] MEDS: CARVEDILOL 12.5 MG TAB PO SCH ×2 (09:36→17:15)
[2018-06-24] MEDS: AMLODIPINE BESYLATE 5 MG TAB PO SCH ×2 (09:36→17:16)
[2018-06-24] MEDS: EZETIMIBE 10 MG TAB PO SCH (09:36)
--- NOTE | 2018-06-24 12:24 | NUR ---
SOCIAL WORK INITIAL ASSESSMENT Transmission Inspector to bedside to discuss plan of care with patient/family. CM/SW role and care transitions discussed. Anticipated discharge plan discussed along with duration of care. CM/SW discussed patients right to make decisions in care. CM/SW work hours given. Patient lives: IN HOUSE WITH Admit/Transfer: VIA ED FROM HOME POA/Emergency contact: DOTTIE RODRIGUEZ ON FILE Current/Previous Home Health: NONE PCP/Follow-up Care: DENZEL Current/Previous DME: [employer] Other Services: NONE Employment Status: RETIRED Areas of Concerns: WANTS SNF Referral Needs: [facility], SIGNED CHOICE Education Needs: NONE IMM/TAMAYO given and signed (if applicable): IMM SIGNED AND FILED ON CHART Goal for discharge: GO TO SNF CM/SW left business card at the bedside with contact information. Name and number was also written on the patients whiteboard. Patient verbalized understanding of discussion. CM will follow-up with ongoing discharge and transition of care needs.
--- NOTE | 2018-06-24 12:25 | NUR ---
SIGNED CHOICE FOR [facility], CALLED REP TO [employer] AFTER 3 X ATTEMPTS AT FAXING AND IT FAILED.
[2018-06-24] MEDS: QUINAPRIL HCL 20 MG TAB PO SCH (12:36)
--- NOTE | 2018-06-24 13:29 | Progress Note ---
DATE: SUBJECTIVE: The patient admitted to [facility] for cellulitis and osteomyelitis of right and left lower extremity. The patient currently had an episode of hypoglycemia, D50 was given. The patient is otherwise asymptomatic. No chest pain. No shortness of breath. No nausea, vomiting, or diarrhea. OBJECTIVE: VITAL SIGNS: From the last night, the patient's temperature is 97.3, pulse of 66, respirations 18, blood pressure is 108/54, pulse oximetry of 96%. HEENT: Normocephalic, atraumatic. Pupils are reactive to light and accommodation. CVS: S1, S2 normal. Decreased air entry in the lung bases. ABDOMEN: Nontender, nondistended, protuberant. EXTREMITIES: Bilateral lower extremity in bandage. LABORATORY DATA: The patient's laboratory values today's white count of 7.8, hemoglobin was 10.8 and hematocrit of 33. Chemistry shows sodium of 135, potassium of 3.5, BUN of 22, creatinine of 1.09, which is improved. EGFR is above 60. Glucoses have been running from the 50s anyway to 131. Imaging trend lower extremity arterial Doppler is pending. Bone scan was done as the patient cannot do MRI secondary to a pacemaker. Bone scan shows suspected osteomyelitis of right 5th metatarsal. ASSESSMENT: 1. Osteomyelitis of the metatarsal. 2. Cellulitis of bilateral lower extremity. 3. Diabetes mellitus. 4. Peripheral neuropathy. 5. Peripheral angiopathy, pending Dopplers. 6. Hypertension. 7. Hyperlipidemia. 8. Obesity. 9. Sleep apnea. PLAN: Plan is to continue with vancomycin and cefepime for his osteomyelitis. PICC line placement will be ordered. Continue with insulin glargine at 55 units. We will go ahead and decrease his glargine to 30 units daily. Continue with home medications, statins, SILVIA inhibitors and beta blockers have been reinstated. Further recommendation and clinical course and also will be following the patient along with consultants, Dr. Goodwin, who probably will do a debridement and Dr. Zacarias for ID. MD RIMMA TesfayeJ/MODL /[id number]
--- NOTE | 2018-06-24 18:30 | NUR ---
Wound care done. Patient turned and repositioned. Bed in lowest position, locked and call chance within reach.
[2018-06-24] MEDS: GABAPENTIN 300 MG CAP PO SCH (20:51)
[2018-06-24] MEDS: ATORVASTATIN 40 MG TAB PO SCH (20:51)
[2018-06-24] MEDS: ZOLPIDEM TARTRATE 5 MG TAB PO SCH (20:51)
[2018-06-24] MEDS: MORPHINE SULFATE INJ 4 MG/ML INJ 1ML IV PRN (21:20)
[2018-06-25] VITALS (7 sets, daily range): BP systolic 135–180; BP diastolic 67–76
[2018-06-25] MEDS: CEFEPIME 1GM/NS 0.9% 50 ML 50 ML IV SCH ×2 (04:59→18:14)
[2018-06-25] MEDS: LEVOTHYROXINE SODIUM 125 MCG TAB PO SCH (05:00)
--- NOTE | 2018-06-25 07:14 | Progress Note ---
DATE: SUBJECTIVE: The patient is here for cellulitis and diabetic foot ulcer on bilateral lower extremity and also was found to have osteomyelitis. Currently, the patient is asymptomatic. No complaints. IV fluids and IV antibiotics are given. No chest pain or shortness of breath, and telemetry monitoring is within normal limits. OBJECTIVE: VITAL SIGNS: Temperature is 96.0, pulse of 66, respirations of 20, blood pressure is 155/68. HEENT: Normocephalic, atraumatic. Pupils are reactive to light and accommodation. CVS: S1 and S2 distant. Regular rate and rhythm. ABDOMEN: Protuberant, nontender, nondistended. EXTREMITIES: Bilateral lower extremity in bandage, status post debridement. ASSESSMENT: 1. Osteomyelitis of the metatarsal. 2. Cellulitis of bilateral lower extremity. 3. Diabetic foot ulcer. 4. Peripheral neuropathy secondary to diabetes. 5. Peripheral angiopathy. 6. Hyperlipidemia. 7. Sleep apnea. 8. Obesity. 9. Uncontrolled diabetes mellitus. 10. Acute renal failure. PLAN: Plan is to continue with cefepime and vancomycin. PICC line insertion. DISPOSITION: To be discharged to possibly an LTAC with IV antibiotics, status post debridement of the diabetic foot ulcer. FURTHER RECOMMENDATION AND CLINICAL COURSE: We will continue with his home medication and also with his insulin sliding scale and regular medications. Bob Flores MD ASJ/MODL /[id number]
--- NOTE | 2018-06-25 07:21 | NUR ---
PT ALERT RESP EVEN, AND UNLABORED NO DISTRESS NOTED PT ABLE TO MAKE NEEDS KNOWN, CALL LIGHT IN REACH FAMILY AT BEDSIDE.
--- NOTE | 2018-06-25 07:52 | NUR ---
KRISTI SPOKE TO DR. MAHONEY REGARDING PATIENT PLAN OF CARE AND DISCHARGE PLANNING. PATIENT REQUESTING TO GO TO [facility] FOR [facility] WHICH WOULD MEAN HE WOULD HAVE TO GO MEDICAID PENDING. INFORMED THAT PATIENT COULD USE THE SKILLED DAYS FOR IV ABX TO TRANSITION INTO INTO THE MEDICAID BED FOR VRT MECHANIC CARE BECAUSE IF HE GOES TO LTAC PATIENT WOULD HAVE TO PAY OUT OF POCKET FOR CARE IN PRISON LIVING PLACEMENT. PER DR. MAHONEY WE WILL WAIT 2 DAYS BEFORE DECIDING PLACEMENT. PATIENT WILL CONTINUE TO HAVE IV ABX AND MD WILL TALK TO PATIENT PRIOR TO INITIATING PLACEMENT.
[2018-06-25] MEDS: ASPIRIN 81 MG ENTERIC COATED PO SCH (09:14)
[2018-06-25] MEDS: CITALOPRAM HYDROBROMIDE 20 MG TAB PO SCH (09:14)
[2018-06-25] MEDS: QUINAPRIL HCL 20 MG TAB PO SCH (09:14)
[2018-06-25] MEDS: SPIRONOLACTONE 25 MG TAB PO SCH (09:14)
[2018-06-25] MEDS: METFORMIN HCL 500 MG TAB PO SCH ×2 (09:14→18:14)
[2018-06-25] MEDS: BALSAM PERU/CASTOR OIL 5 GM OINT...G. TP SCH (09:15)
[2018-06-25] MEDS: CARVEDILOL 12.5 MG TAB PO SCH ×2 (09:15→18:15)
[2018-06-25] MEDS: CYANOCOBALAMIN 1,000 MCG TAB PO SCH (09:15)
[2018-06-25] MEDS: AMLODIPINE BESYLATE 5 MG TAB PO SCH ×2 (09:15→18:14)
[2018-06-25] MEDS: FUROSEMIDE 40 MG TAB PO SCH (09:15)
[2018-06-25] MEDS: EZETIMIBE 10 MG TAB PO SCH (09:15)
[2018-06-25] MEDS: INSULIN LISPRO 100 UNIT/1 ML 3ML VIAL SQ SCH ×4 (09:23→21:00)
[2018-06-25] MEDS: INSULIN GLARGINE 100 UNITS/ML VIAL SQ SCH ×2 (09:26→16:30)
[2018-06-25] MEDS: SODIUM CHLORIDE 0.9% 1000ML 1,000 ML IV SCH ×2 (09:35→18:14)
--- NOTE | 2018-06-25 10:09 | NUR ---
pt off unit for MRI. no tele. Addendum: 06/25/18 at 1338 by Anjali Guzman LVN error wrong Divine martini lvn
--- NOTE | 2018-06-25 10:43 | NUR ---
pr returned to room tele applied Addendum: 06/25/18 at 1338 by Anjali Guzman LVN error Divine gonsalez pt, lvn
--- NOTE | 2018-06-25 12:20 | NUR ---
SPOKE WITH ROSENDO, PRIMARY NURSE. PT DOES NOT NEED TO BE SEEN. WOUND CARE ASSESSED PT ON 06/23/18. ACCORDING TO NURSING THERE ARE NO NEW CONCERNS AT THIS TIME.
--- NOTE | 2018-06-25 13:31 | NUR ---
STOOL SENT TO LAB FOR C DIFF PROBE.
[2018-06-25] MEDS: VANCOMYCIN 1GM/NS 250 ML 250 ML IV SCH (13:36)
[2018-06-25] MEDS ORDERED: CHOLESTYRAMINE 4 GM PACKET PO SCH (17:00)
[2018-06-25] MEDS: CHOLESTYRAMINE 4 GM PACKET PO SCH (18:14)
--- NOTE | 2018-06-25 19:25 | NUR ---
CHANGED PT DIAPER LOOSE STOOL.,
--- NOTE | 2018-06-25 19:45 | NUR ---
REPORT GIVEN TO ONCOMING NURSE, FOR CONTINUED CARE.
[2018-06-25] MEDS ORDERED: CLONIDINE HCL 0.1 MG TAB PO PRN (20:15)
[2018-06-25] MEDS ORDERED: BISMUTH SUBSALICYLATE 262 MG TAB PO PRN (20:45)
[2018-06-25] MEDS: MORPHINE SULFATE INJ 4 MG/ML INJ 1ML IV PRN (20:57)
[2018-06-25] MEDS: ZOLPIDEM TARTRATE 5 MG TAB PO SCH (21:26)
[2018-06-25] MEDS: ATORVASTATIN 40 MG TAB PO SCH (21:26)
[2018-06-25] MEDS: GABAPENTIN 300 MG CAP PO SCH (21:26)
--- NOTE | 2018-06-25 23:18 | Progress Note ---
DATE: SUBJECTIVE: Mr. Odonnell is doing well. There are no new complaints. REVIEW OF SYSTEMS: HEENT: Negative. PULMONARY: Negative. CARDIAC: Negative. Discussed with Dr. Flores. Discussed with Dr. Jan Goodwin. PHYSICAL EXAMINATION: GENERAL: He is currently alert, oriented, does not seem to be in acute distress. VITALS: Stable. Currently, afebrile. HEENT: He is not icteric. NECK: Supple. CHEST: Clear. HEART: S1, S2. No S3, S4, or murmur. ABDOMEN: Soft. Bowel sounds present. Obese. No tenderness. EXTREMITIES: There is a slight edema. Ulcers noted to the bilateral feet. Drainage from the foot consistent with MRSA. LABORATORY DATA: Reviewed. His bone scan was suspicious for osteo of the right 5th metatarsal. He had no evidence of osteo by x-ray on the right foot and no evidence of osteo on x-ray of the left foot. IMPRESSION: I think clinically the patient has osteomyelitis and I am very concerned about peripheral vascular disease. Discussed with the patient. Discussed with Dr. Flores. We will start vascular workup. We will continue with vancomycin and cefepime for the time being. I think he probably needs a prolonged course of IV antibiotic in addition to the vascular workup. Continue his diabetic control. Continue the medication. Medication list reviewed. Laboratory data reviewed. He is on Xanax, Norvasc, Lipitor, Coreg. We will follow. MD GHISLAINE Alan/VINICIUS /[id number]
--- NOTE | 2018-06-25 23:59 | NUR ---
SPOKE TO [facility] WITH [facility]. SPECIALITY BED ORDERED. CONFIRMATION #[id number]. ABOVE INFORMATION REPORTED TO PM NURSE
[2018-06-26] VITALS: BP 150/70
[2018-06-26] MEDS: VANCOMYCIN 250MG/5ML ORAL SOLN PO SCH ×4 (00:28→17:37)
[2018-06-26] MEDS: SODIUM CHLORIDE 0.9% 1000ML 1,000 ML IV SCH (04:15)
[2018-06-26] MEDS: MORPHINE SULFATE INJ 4 MG/ML INJ 1ML IV PRN ×2 (04:37→14:48)
[2018-06-26] MEDS: CEFEPIME 1GM/NS 0.9% 50 ML 50 ML IV SCH (04:39)
[2018-06-26] MEDS: LEVOTHYROXINE SODIUM 125 MCG TAB PO SCH (05:01)
[2018-06-26 05:57] VITALS: BP 150/70
[2018-06-26] MEDS: INSULIN LISPRO 100 UNIT/1 ML 3ML VIAL SQ SCH ×2 (07:30→11:30)
[2018-06-26] MEDS: INSULIN GLARGINE 100 UNITS/ML VIAL SQ SCH (07:30)
[2018-06-26 07:40] VITALS: BP 178/71
--- NOTE | 2018-06-26 07:45 | Progress Note ---
DATE: SUBJECTIVE: The patient comes in for bilateral lower extremity cellulitis and also diabetic foot ulcers. The patient is status post for debridement, ready for another debridement today by Dr. Goodwin. No chest pains. No shortness of breath. The patient is in bed and is getting physical therapy. The patient did not participate in PT, did not walk because of inability to weight bear according to the patient. OBJECTIVE: VITAL SIGNS: Temperature is 98.4, T-max is 99.2, blood pressure is 160/70, pulse oximetry of 97% on room air. HEENT: Normocephalic, atraumatic. Morbidly obese. CVS: S1 and S2 distant. Regular rate and rhythm. ABDOMEN: Nontender, nondistended. EXTREMITIES: No clubbing. No cyanosis. Positive for bilateral lower extremity with diabetic foot ulcers. LABORATORY VALUES: Hemoglobin is 10.8 and hematocrit 33.0. Chemistries; glucose running between 104 and 132. Microbiology shows MRSA. On wound culture, the patient is sensitive to clindamycin, Zyvox, vancomycin, and resistant to Rocephin. Lower extremity arterial Doppler did show no flow noted in the posterior tibial artery, probably occluded and mild PAD in the lateral NOLA. MEDICATIONS: At this time, vancomycin and cefepime. The patient is on other regular medications, which include diabetic medications and hyperlipidemic agents. ASSESSMENT: Cellulitis of the lower extremities, osteomyelitis, and also peripheral arterial disease. The patient will continue vancomycin and cefepime. In lieu of his peripheral arterial disease, a consult with Dr. Loving will be done to either do angiogram or revascularize if needed. Currently, we will continue with antilipid agents and also we will start the patient on Lovenox for deep venous thrombosis prophylaxis. FURTHER RECOMMENDATION AND CLINICAL COURSE: The patient can be transferred to rehab facility after cardiology assessment of his vascular disease. MD DENIS Tesfaye/VINICIUS /[id number]
[2018-06-26] MEDS: METFORMIN HCL 500 MG TAB PO SCH ×2 (08:00→17:37)
[2018-06-26] MEDS: AMLODIPINE BESYLATE 5 MG TAB PO SCH ×2 (08:45→17:38)
[2018-06-26] MEDS: QUINAPRIL HCL 20 MG TAB PO SCH (08:45)
[2018-06-26] MEDS: FUROSEMIDE 40 MG TAB PO SCH (09:00)
[2018-06-26] MEDS: CITALOPRAM HYDROBROMIDE 20 MG TAB PO SCH (09:00)
[2018-06-26] MEDS: SPIRONOLACTONE 25 MG TAB PO SCH (09:00)
[2018-06-26] MEDS: EZETIMIBE 10 MG TAB PO SCH (09:00)
[2018-06-26] MEDS: CYANOCOBALAMIN 1,000 MCG TAB PO SCH (09:00)
[2018-06-26] MEDS: BALSAM PERU/CASTOR OIL 5 GM OINT...G. TP SCH (09:00)
[2018-06-26] MEDS: CARVEDILOL 12.5 MG TAB PO SCH ×2 (09:00→17:37)
[2018-06-26] MEDS: ASPIRIN 81 MG ENTERIC COATED PO SCH (09:00)
[2018-06-26] MEDS: CHOLESTYRAMINE 4 GM PACKET PO SCH ×2 (09:00→17:37)
--- NOTE | 2018-06-26 09:35 | NUR ---
patient off the unit for procedure in stretcher, stable
[2018-06-26] MEDS ORDERED: NEOSTIGMINE 1 MG/ML 10ML VIAL ONE (11:58)
[2018-06-26] MEDS ORDERED: FENTANYL CITRATE/PF 100MCG/2 ML INJ ONE (12:26)
[2018-06-26] MEDS ORDERED: MORPHINE SULFATE INJ 4 MG/ML INJ 1ML ONE (12:46)
--- NOTE | 2018-06-26 13:25 | NUR ---
Recvd patient from PACU. AAOx3, dressing intact on both foot, denies any pain this time, not in any distress, assisted him to bed with assist by 4 person
[2018-06-26 13:37] VITALS: BP 143/65
[2018-06-26] MEDS: VANCOMYCIN 1GM/NS 250 ML 250 ML IV SCH (13:40)
--- NOTE | 2018-06-26 15:16 | NUR ---
paged Dr Zacarias regarding IV antibiotic treatment before patient get discharge,
--- NOTE | 2018-06-26 15:53 | NUR ---
Recvd call back from PA of Dr Zacarias that patient can be discharged 4 weeks of IV antibiotics Vancomycin and Cefepime, Lab CBC,BMP IN 1 week, vanco trough twice a week, Consult Dr Zacarias in 2 week.
--- NOTE | 2018-06-26 16:48 | NUR ---
Report called to Jelena NAVARRO in [facility], F/up instruction with Dr Zacarias and Dr Guzman given, , spoked to Dr Liliana Gomez he said patient has to f/up him coming friday call and schedule appointment for angiogram ([phone]) information given to the nurse. Also 4 wks antibiotic, CBC,BMP in 1 week, vanco trough twice in a week, f/up Dr Zacarias in 2 weeks . nurse Jelena was told about these appointments and treatments.
--- NOTE | 2018-06-26 17:17 | Operative Report ---
DATE OF PROCEDURE: 06/26/2018 SURGEON: Jan Goodwin DPM ROOM NUMBER: [facility]. PREOPERATIVE DIAGNOSIS: Diabetic ulcerations, plantar aspect of the right foot, sub 5th metatarsal and the lateral aspect of the left heel. Both full thickness through skin and subcutaneous tissue. Without the use of a tourniquet, attention was 1st directed to the plantar aspect of the right foot sub 5th metatarsal. This area was a very large, thickened, hyperkeratotic lesions, full thickness through skin and subcutaneous tissue. This was debrided utilizing a #15 blade. Excisional debridement was performed and the underlying tissue was noted to be somewhat necrotic but softer and more pliable. The appropriate dressings were applied utilizing a Bactroban ointment and dry gauze. The wound base was necrotic in nature and the wound itself measured 2 cm x 2 cm in circumference. After application with the appropriate mildly compressive dressings on the right foot, attention was directed to the left. On the left foot, there was a significant lesion full thickness through skin, subcutaneous tissue, and muscle on the left side. This was on the posterior lateral aspect of the left heel. This area was debrided today, full thickness through skin, subcutaneous tissue and underlying muscle belly. Using a #15 blade, excisional in nature, the underlying tissue was further debrided of any necrotic tissue until good healthy tissue was found. A EpiFix 4.0 x 4.0 cm graft was applied. Steri-Strips were used for fixation and this patient achieved full coverage and closure with the 4 x 4 cm graft. The wound itself measured 3.8 x 3.8. The wound having just been fixated. The appropriate mildly compressive dressings were applied and no tourniquet had been used. There was adequate bleeding from both left and right feet. The patient left the operating room with vital signs stable in apparent satisfactory condition, having tolerated both anesthetic and procedure very well. He will be allowed partial weightbearing and increased ambulatory status to tolerance. I need to see him one week after discharge from the hospital. He will be going to LTAC. NICK Carmen/VINICIUS /[id number]
[2018-06-26] MEDS: HYDROCODONE/APAP 10MG-325MG TAB PO PRN (17:37)
--- NOTE | 2018-06-26 17:55 | NUR ---
patient discharged to [facility]
--- NOTE | 2018-06-26 18:02 | NUR ---
EMS here to pick patient, not in any distress, wound dressing is intact. Called nurse Chun RN in [place] reminded him again regarding f/up appointments, DR Zacarias's office number given [phone], info given regarding elevated foot 30 degree
--- NOTE | 2018-06-26 18:12 | Consultation ---
DATE OF CONSULTATION: 06/26/2018 Cardiology Consult Note REASON FOR CONSULT: Peripheral arterial disease. CHIEF COMPLAINT: Foot ulcers. HISTORY OF PRESENT ILLNESS: The patient is a 77-year-old man with history of uncontrolled diabetes, hypertension, history of coronary artery disease, chronic congestive heart failure, hyperlipidemia, neuropathy, who has been bed-bound since mechanical fall and injury in 2016, who presents with worsening foot ulcers in bilateral lower extremities. PAST MEDICAL HISTORY: As mentioned in HPI. OUTPATIENT MEDICATIONS: Reviewed. Please see MAR for the extensive list. FAMILY HISTORY: No family history of early CAD or sudden cardiac . SOCIAL HISTORY: The patient does not smoke, drink, or abuse drugs. REVIEW OF SYSTEMS: As per HPI, otherwise negative. OBJECTIVE: VITAL SIGNS: Temperature 98.0, pulse 66, respiratory rate 18, blood pressure 170/71, saturating 97% on room air. GENERAL: Obese white man, in no acute distress. CARDIOVASCULAR: Regular rate and rhythm. No murmurs, rubs, or gallops. LUNGS: Clear to auscultation anteriorly. ABDOMEN: Obese, soft, nontender, nondistended. NEURO AND PSYCH: Alert and oriented to person, place, and time. Normal affect. Vascular pulses are not palpable in bilateral lower extremities distally. There is ulcerations of bilateral heels as well as the forefoot on the left. Dressing in place with no significant edema or varicosities. INPATIENT MEDICATIONS: Reviewed. LABORATORY DATA: Reviewed. IMAGING DATA: Reviewed. Arterial Doppler was reviewed, shows bilaterally occluded posterior tibial arteries, patent anterior tibial arteries with moderate arthrosclerotic disease. ASSESSMENT: 1. Peripheral arterial disease with critical limb ischemia and heel ulcers. 2. Coronary artery disease. 3. Diabetes. 4. Hypertension. 5. Hyperlipidemia. PLAN: Recommend angiography of bilateral lower extremity with possible intervention to assist in wound healing given critical limb ischemia with bilateral heel ulcerations. We will plan to do this procedure on Friday. The patient is still in-house. If the patient is discharged over the weekend, the patient will need to follow up as an outpatient in clinic and we will schedule him as an outpatient once he has established care as an outpatient. Thank you for this consult. We will continue to follow. MD VILMA Abernathy/MODL /[id number]
--- NOTE | 2018-06-27 03:36 | NUR ---
[facility] called and informed pt. has been discharged and bed needed to be picked up; Confirmation # [id number]
== END 2018-06-26 17:53 | DRG 623 ==
LOC: ER 12:42 → ERHOLD 17:43 → IMCU 21:05 → OBSVTOIN 06-23 18:17
PROVIDERS: ADMIT Family Medicine; ATTEND Family Medicine
PROC: 0KBW0ZZ Excision of Left Foot Muscle, Open Approach (ICD-10-PCS; 2018-06-26)
PROC: 0JBQ0ZZ Excision of Right Foot Subcutaneous Tissue and Fascia, Open Approach (ICD-10-PCS; principal; 2018-06-26 10:30)
DX: E11.69 Type 2 diabetes mellitus with other specified complication (principal); L03.115 Cellulitis of right lower limb; L03.116 Cellulitis of left lower limb; T83.511A Infection and inflammatory reaction due to indwelling urethral catheter, initial encounter; M86.8X7 Other osteomyelitis, ankle and foot; Z68.41 Body mass index [BMI] 40.0-44.9, adult; E11.42 Type 2 diabetes mellitus with diabetic polyneuropathy; E11.65 Type 2 diabetes mellitus with hyperglycemia; E66.9 Obesity, unspecified; E11.621 Type 2 diabetes mellitus with foot ulcer; I25.10 Atherosclerotic heart disease of native coronary artery without angina pectoris; I11.0 Hypertensive heart disease with heart failure; I50.9 Heart failure, unspecified; Z95.810 Presence of automatic (implantable) cardiac defibrillator; E78.5 Hyperlipidemia, unspecified; Z91.81 History of falling; L89.321 Pressure ulcer of left buttock, stage 1; L89.622 Pressure ulcer of left heel, stage 2; Z79.4 Long term (current) use of insulin; Z79.82 Long term (current) use of aspirin; Z88.0 Allergy status to penicillin; J44.9 Chronic obstructive pulmonary disease, unspecified; G47.30 Sleep apnea, unspecified; E11.51 Type 2 diabetes mellitus with diabetic peripheral angiopathy without gangrene; N17.9 Acute kidney failure, unspecified; B95.62 Methicillin resistant Staphylococcus aureus infection as the cause of diseases classified elsewhere; Z16.29 Resistance to other single specified antibiotic; R19.7 Diarrhea, unspecified
CPT/HCPCS: 36415; 78315; 80048; 80053; 80202; 81001; 82948; 85025; 85651; 86140; 87071; 87075; 87086; 87186; 87205; 87493; 93925; 96360; 97139; 99284; A9503; G0378; J0692; J1815; J2270; J2405; J2710; J3370; J7030; J7799

== ENCOUNTER 2018-09-04 13:11 | Inpatient (IN) | payer MEDICARE ==
[~2018-09-04] VITALS: Ht 182.9 cm; Wt 135.7 kg
[2018-09-04] MEDS ORDERED: PANTOPRAZOLE 40 MG 10ML VIAL IV STA (13:20)
[2018-09-04] MEDS ORDERED: SODIUM CHLORIDE 0.9% 1000ML 1,000 ML IV STA ×3 (13:20→15:07)
[2018-09-04] MEDS ORDERED: ONDANSETRON HCL INJ 2MG/ML 2ML 2 MG/ML VIAL IV STA (13:20)
[2018-09-04 14:21] LABS: BASOPHILS % 0.2 % (0.0-1.0); EOSINOPHILS % 0.1 % (0.0-6.0); HEMATOCRIT 33.4 % (38.2-49.6); HEMOGLOBIN 11.8 g/dL (14.0-18.0); LYMPHOCYTES # (AUTO) 1.5 (1.0-3.2); LYMPHOCYTES % 7.8 % (18.0-39.1); MEAN CORPUSCULAR HGB CONC 35.3 g/dL (31-35); MONOCYTES # (AUTO) 2.6 (0.2-0.8); NEUTROPHILS # (AUTO) 15.3 (2.1-6.9); NEUTROPHILS % 78.1 % (38.7-80.0); PLATELET COUNT 184 x10e3/uL (140-360); RED BLOOD COUNT 3.93 x10e6/uL (4.3-5.7); RED CELL DISTRIBUTION WIDTH 14.1 % (11.7-14.4)
[2018-09-04 14:39] LABS: ALBUMIN 4.2 g/dL (3.5-5.0); ALBUMIN/GLOBULIN RATIO 1.2 (0.8-2.0); ANION GAP 22.3 mmol/L (8-16); CALCIUM 9.3 mg/dL (8.4-10.2); CREATININE, SERUM 1.32 mg/dL (0.72-1.25); POTASSIUM 3.3 mmol/L (3.5-5.1)
[2018-09-04 14:47] LABS: CREATINE KINASE MB 0.9 ng/mL (0-5.0)
[2018-09-04 14:54] LABS: B-TYPE NATRIURETIC PEPTIDE2 79.5 pg/mL (0-100)
[2018-09-04 14:55] LABS: BILIRUBIN,URINE NEGATIVE (NEGATIVE); CLARITY,URINE SL CLOUDY (CLEAR); COLOR,URINE YELLOW (YELLOW); LEUKOCYTE ESTERASE ,URINE NEGATIVE (NEGATIVE); NITRITE,URINE NEGATIVE (NEGATIVE); PROTEIN,URINE DIPSTICK 1+ (NEGATIVE); URINE UROBILINOGEN 0.2 mg/dL (0.2 - 1)
[2018-09-04 15:01] LABS: KETONES,URINE 2+ (NEGATIVE)
--- NOTE | 2018-09-04 15:05 | Diagnostic Imaging Report ---
Examination: Single AP view of the chest. COMPARISON: None. INDICATION: Vomiting DISCUSSION: Lines/tubes: Multi lead cardiac device. Lungs: The lungs are well inflated and clear. No pneumonia or pulmonary edema. Pleura: No pleural effusion or pneumothorax. Heart and mediastinum: The heart and the mediastinum are unremarkable. Bones and soft tissues: No acute bony abnormalities. IMPRESSION: 1. No acute cardiopulmonary abnormalities. Signed by: Dr. Néstor Downing M.D. on 09/04/2018 3:02 PM
[2018-09-04] MEDS ORDERED: VANCOMYCIN 1GM/NS 250 ML 250 ML IV ONE (15:07)
[2018-09-04] MEDS ORDERED: SODIUM CHLORIDE 0.9% 1000ML 1,000 ML ONE ×2 (15:14→18:15)
[2018-09-04 15:15] LABS: AMORPHOUS SEDIMENT,URINE MODERATE (FEW); BACTERIA,URINE MANY /HPF; RBC,URINE 0-5 /HPF (0-5)
[2018-09-04] MEDS ORDERED: INSULIN REGULAR, HUMAN 100 UNIT/1 ML 3ML VIAL IV ONE (15:15)
[2018-09-04] MEDS ORDERED: CEFEPIME HCL 1 GM VIAL IV SCH (15:15)
[2018-09-04] MEDS: VANCOMYCIN 250MG/5ML ORAL SOLN PO SCH ×2 (16:00→21:45)
[2018-09-04 17:07] LABS: ANION GAP 18.1 mmol/L (8-16); BLOOD UREA NITROGEN 13 mg/dL (7-26); BUN/CREATININE RATIO 12 (6-25); CALCIUM 7.1 mg/dL (8.4-10.2); CARBON DIOXIDE 17 mmol/L (22-29); CHLORIDE 110 mmol/L (98-107); CREATININE, SERUM 1.05 mg/dL (0.72-1.25); EST GLOMERULAR FILTRATION RATE > 60 ML/MIN (60-); GLUCOSE 342 mg/dL (74-118); POTASSIUM 3.1 mmol/L (3.5-5.1); SODIUM 142 mmol/L (136-145)
[2018-09-04] MEDS: CEFEPIME 1GM/NS 0.9% 50 ML 50 ML IV SCH (17:29)
[2018-09-04] MEDS ORDERED: POTASSIUM CHLORIDE 10MEQ/100ML 100 ML IV ONE (17:30)
[2018-09-04] MEDS ORDERED: IOPAMIDOL 370 MG/ML 200 ML INFUS..BTL INJ ONE (18:07)
[2018-09-04] MEDS ORDERED: SODIUM CHLORIDE 0.9% 50ML 50 ML ONE (18:07)
[2018-09-04] MEDS: POTASSIUM CHLORIDE 20 MEQ TAB CR PO SCH (18:21)
--- NOTE | 2018-09-04 18:21 | Diagnostic Imaging Report ---
EXAMINATION: CT of the abdomen and pelvis with contrast. TECHNIQUE: Helical CT images of the abdomen and pelvis were performed from the lung bases to the lesser trochanters after the intravenous administration of 150 cc of Isovue 300 and the oral administration of none. Coronal and sagittal reformatted images were obtained.Dose modulation, iterative reconstruction, and/or weight based adjustment of the mA/kV was utilized to reduce the radiation dose to as low as reasonably achievable. COMPARISON: None. CLINICAL HISTORY:Abdominal pain, vomiting DISCUSSION: ABDOMEN/PELVIS: LOWER THORAX:Lung base atelectasis. HEPATOBILIARY: No focal hepatic lesions. No intra-or extrahepatic biliary ductal dilation. The gallbladder is normal. SPLEEN: No splenomegaly. PANCREAS: No focal masses or ductal dilatation. ADRENALS: No adrenal nodules. KIDNEYS/URETERS: Multiple cysts within the right kidney. No obstruction. No calculi. PELVIC ORGANS/BLADDER: Prostate enlarged measuring 6.4 cm transverse dimension. PERITONEUM/RETROPERITONEUM: No free air or fluid. LYMPH NODES: No intra-abdominal, retroperitoneal, pelvic or inguinal lymphadenopathy. VESSELS: Unremarkable. GI TRACT: No obstruction. Colonic diverticulosis without inflammatory change. BONES AND SOFT TISSUE: Multilevel lumbar spondylosis. IMPRESSION: No acute CT finding. Signed by: Dr. Néstor Downing M.D. on 09/04/2018 6:17 PM
[2018-09-04 18:50] LABS: BASOPHILS % 0.1 % (0.0-1.0); HEMATOCRIT 31.3 % (38.2-49.6); HEMOGLOBIN 10.7 g/dL (14.0-18.0); LYMPHOCYTES # (AUTO) 0.7 (1.0-3.2); LYMPHOCYTES % 4.3 % (18.0-39.1); MEAN CORPUSCULAR HEMOGLOBIN 29.8 pg (28-32); MEAN CORPUSCULAR HGB CONC 34.2 g/dL (31-35); MEAN CORPUSCULAR VOLUME 87.2 fL (81-99); MONOCYTES # (AUTO) 1.7 (0.2-0.8); MONOCYTES % 10.8 % (4.4-11.3); NEUTROPHILS # (AUTO) 13.5 (2.1-6.9); NEUTROPHILS % 83.4 % (38.7-80.0); PLATELET COUNT 161 x10e3/uL (140-360); RED BLOOD COUNT 3.59 x10e6/uL (4.3-5.7); RED CELL DISTRIBUTION WIDTH 14.4 % (11.7-14.4)
[2018-09-04 19:12] LABS: ALBUMIN 3.7 g/dL (3.5-5.0); ALBUMIN/GLOBULIN RATIO 1.2 (0.8-2.0); ANION GAP 16.8 mmol/L (8-16); CALCIUM 8.1 mg/dL (8.4-10.2); CREATININE, SERUM 1.32 mg/dL (0.72-1.25); POTASSIUM 3.8 mmol/L (3.5-5.1)
[2018-09-04] MEDS ORDERED: POTASSIUM CHLORIDE 10MEQ EA PO ONE (19:15)
[2018-09-04] MEDS ORDERED: DEXTROSE 50% SYRINGE 50 ML IV PRN (20:15)
--- NOTE | 2018-09-04 20:27 | NUR ---
DR. AKHTAR AND MICHELLE RN NOTIFIED OF CRITICAL LAB VALUE. LACTIC ACID 35.1.
[2018-09-04] MEDS: SODIUM CHLORIDE 0.9% 1000ML 1,000 ML IV SCH (20:57)
[2018-09-04] MEDS: INSULIN REGULAR, HUMAN 100 UNIT/1 ML 3ML VIAL SQ SCH (21:38)
[2018-09-04] MEDS: ONDANSETRON HCL INJ 2MG/ML 2ML 2 MG/ML VIAL IV PRN (22:12)
[2018-09-04] MEDS ORDERED: ACETAMINOPHEN 325 MG TAB PO PRN (22:15)
--- NOTE | 2018-09-04 23:31 | NUR ---
Report given to Jessica ESPINOZA. Jessica ESPINOZA with pt now.
[2018-09-04 23:45] VITALS: BP 161/62
[2018-09-04 23:59] VITALS: BP 172/92
[2018-09-05] VITALS (12 sets, daily range): BP systolic 150–164; BP diastolic 60–67
[2018-09-05] MEDS: ONDANSETRON HCL INJ 2MG/ML 2ML 2 MG/ML VIAL IV PRN ×3 (02:16→17:50)
[2018-09-05] MEDS: VANCOMYCIN 250MG/5ML ORAL SOLN PO SCH ×4 (03:45→21:34)
[2018-09-05] MEDS: CEFEPIME 1GM/NS 0.9% 50 ML 50 ML IV SCH ×2 (03:45→17:18)
[2018-09-05] MEDS: SODIUM CHLORIDE 0.9% 1000ML 1,000 ML IV SCH ×3 (03:46→20:29)
[2018-09-05 04:59] LABS: BASOPHILS % 0.1 % (0.0-1.0); HEMATOCRIT 28.5 % (38.2-49.6); HEMOGLOBIN 9.7 g/dL (14.0-18.0); LYMPHOCYTES # (AUTO) 1.9 (1.0-3.2); LYMPHOCYTES % 11.2 % (18.0-39.1); MEAN CORPUSCULAR HEMOGLOBIN 29.6 pg (28-32); MEAN CORPUSCULAR VOLUME 86.9 fL (81-99); MONOCYTES # (AUTO) 2.3 (0.2-0.8); NEUTROPHILS # (AUTO) 12.2 (2.1-6.9); NEUTROPHILS % 73.7 % (38.7-80.0); PLATELET COUNT 164 x10e3/uL (140-360); RED BLOOD COUNT 3.28 x10e6/uL (4.3-5.7); RED CELL DISTRIBUTION WIDTH 14.4 % (11.7-14.4)
[2018-09-05] MEDS ORDERED: ALPRAZOLAM 1 MG TAB PO PRN (05:00)
[2018-09-05 05:22] LABS: ALBUMIN 3.6 g/dL (3.5-5.0); ALBUMIN/GLOBULIN RATIO 1.3 (0.8-2.0); ANION GAP 12.9 mmol/L (8-16); CALCIUM 8.4 mg/dL (8.4-10.2); CREATININE, SERUM 1.23 mg/dL (0.72-1.25); POTASSIUM 3.9 mmol/L (3.5-5.1)
[2018-09-05] MEDS: SALMETEROL/FLUTICASONE 500/50 INH SCH ×2 (07:00→19:00)
--- NOTE | 2018-09-05 07:30 | NUR ---
Pt received resting in bed. Alert and oriented x4. Oriented to staff and surroundings. Encouraged to press call chance if help needed. Emotional support given. Will monitor
[2018-09-05] MEDS ORDERED: GABAPENTIN400 MG PO (08:26)
[2018-09-05] MEDS ORDERED: BENADRYL25 M1 PO (08:26)
[2018-09-05] MEDS ORDERED: AMBIEN10 MG PO (08:26)
[2018-09-05] MEDS ORDERED: GLIMEPIRIDE2 MG PO (08:26)
[2018-09-05] MEDS ORDERED: NORCO 5-325 TA1 EACH PO (08:26)
[2018-09-05] MEDS ORDERED: MULTI-VITAMIN1 EACH PO (08:26)
[2018-09-05] MEDS ORDERED: ZINC SULFATE220 MG PO (08:26)
[2018-09-05] MEDS ORDERED: ULTRAM 50MG50 MG PO (08:26)
[2018-09-05] MEDS ORDERED: ASPIR-LOW81 MG PO (08:26)
[2018-09-05] MEDS ORDERED: ZOFRAN4 MG PO (08:26)
[2018-09-05] MEDS ORDERED: CITALOPRAM HBR20 MG PO (08:26)
[2018-09-05] MEDS ORDERED: MAGNESIUM OXID400 MG PO (08:26)
[2018-09-05] MEDS ORDERED: LIPITOR20 MG (08:26)
[2018-09-05] MEDS ORDERED: CARVEDILOL12.5 MG PO (08:26)
[2018-09-05] MEDS ORDERED: ATORVASTATIN 10 MG TAB PO SCH (09:00)
[2018-09-05] MEDS ORDERED: EZETIMIBE 10 MG TAB PO SCH (09:00)
[2018-09-05] MEDS ORDERED: LEVOTHYROXINE SODIUM 125 MCG TAB PO SCH (09:00)
[2018-09-05] MEDS: INSULIN REGULAR, HUMAN 100 UNIT/1 ML 3ML VIAL SQ SCH ×4 (09:10→21:00)
[2018-09-05] MEDS: AMLODIPINE BESYLATE 5 MG TAB PO SCH ×2 (10:08→18:09)
[2018-09-05] MEDS: POTASSIUM CHLORIDE 20 MEQ TAB CR PO SCH (11:45)
[2018-09-05] MEDS ORDERED: PROMETHAZINE 25MG/ NS 50ML (IV) IV PRN (11:45)
--- NOTE | 2018-09-05 11:45 | NUR ---
Pt noted with right lateral foot wound. Dressing done with santyl wet to dry. Non raised rash noted to upper back, and armpits. Rash noted to groin, scrotum, and buttocks. Stage II noted to left buttock. Lora cream plus antifungal cream mixed, and applied to affected areas. Emotional support given. Call chance within reach. Pt turned and repositioned Q2hrs. Will monitor Addendum: 09/06/18 at 0811 by Parrish Todd RN Excoriation noted to groin, scrotum, and buttocks.
[2018-09-05] MEDS: COLLAGENASE 5 GM TUBE TOP SCH (11:46)
--- NOTE | 2018-09-05 17:15 | NUR ---
Pt resting comfortably in bed. Call chance within reach. Will monitor
--- NOTE | 2018-09-05 20:18 | NUR ---
RECEIVED PT IN BED AOX3 .RESPIRATIONS ARE EVEN AND UNLABORED .LEFT AC NS AT 125 CC/HR .RASH TO THE BACK. GROIN AND LEFT BUTTOCK EXCORIATION STAGE 2 AT BUTTOCKS CALL LIGHT WITH IN REACH CONTINUE TO MONITOR
[2018-09-05] MEDS: ATORVASTATIN 40 MG TAB PO SCH (20:37)
[2018-09-05] MEDS: EZETIMIBE 10 MG TAB PO SCH (20:39)
[2018-09-05] MEDS: ZINC OXIDE / BALSAM PERU 30 GM TUBE TOP SCH (20:39)
[2018-09-05] MEDS: HYDROCODONE/APAP 10MG-325MG TAB PO PRN (20:40)
[2018-09-05] MEDS: ZOLPIDEM TARTRATE 5 MG TAB PO PRN (20:40)
[2018-09-05] MEDS: GABAPENTIN 300 MG CAP PO SCH (21:00)
--- NOTE | 2018-09-05 21:23 | NUR ---
PT C/O PAIN AND MEDICATED WITH HYDROCODONE .CONTINUE TO MONITOR
[2018-09-06] VITALS (8 sets, daily range): BP systolic 102–153; BP diastolic 49–72
[2018-09-06] MEDS: VANCOMYCIN 250MG/5ML ORAL SOLN PO SCH ×4 (03:46→21:01)
[2018-09-06] MEDS: CEFEPIME 1GM/NS 0.9% 50 ML 50 ML IV SCH ×2 (03:47→15:32)
[2018-09-06 05:16] LABS: BASOPHILS % 0.2 % (0.0-1.0); EOSINOPHILS % 0.2 % (0.0-6.0); HEMOGLOBIN 8.8 g/dL (14.0-18.0); LYMPHOCYTES # (AUTO) 1.9 (1.0-3.2); LYMPHOCYTES % 15.8 % (18.0-39.1); MEAN CORPUSCULAR HEMOGLOBIN 29.6 pg (28-32); MEAN CORPUSCULAR HGB CONC 33.8 g/dL (31-35); MEAN CORPUSCULAR VOLUME 87.5 fL (81-99); MONOCYTES # (AUTO) 1.9 (0.2-0.8); MONOCYTES % 15.5 % (4.4-11.3); NEUTROPHILS % 66.6 % (38.7-80.0); PLATELET COUNT 138 x10e3/uL (140-360); RED BLOOD COUNT 2.97 x10e6/uL (4.3-5.7); RED CELL DISTRIBUTION WIDTH 14.4 % (11.7-14.4)
[2018-09-06] MEDS: SODIUM CHLORIDE 0.9% 1000ML 1,000 ML IV SCH ×3 (05:24→21:01)
[2018-09-06 05:31] LABS: ANION GAP 12.6 mmol/L (8-16); BLOOD UREA NITROGEN 14 mg/dL (7-26); BUN/CREATININE RATIO 13 (6-25); CALCIUM 7.8 mg/dL (8.4-10.2); CARBON DIOXIDE 21 mmol/L (22-29); CHLORIDE 108 mmol/L (98-107); CREATININE, SERUM 1.04 mg/dL (0.72-1.25); EST GLOMERULAR FILTRATION RATE > 60 ML/MIN (60-); GLUCOSE 161 mg/dL (74-118); POTASSIUM 3.6 mmol/L (3.5-5.1); SODIUM 138 mmol/L (136-145)
[2018-09-06] MEDS: LEVOTHYROXINE SODIUM 125 MCG TAB PO SCH (05:54)
[2018-09-06] MEDS: HYDROCODONE/APAP 10MG-325MG TAB PO PRN (05:55)
--- NOTE | 2018-09-06 06:41 | NUR ---
PT C/O PAIN AND GIVEN ORDERED PAIN MEDICATION .PT RESTING NO ACUTE DISTRESS NOTED .CALL LIGHT WITH IN REACH .CONTINUE TO MONITOR
[2018-09-06] MEDS: SALMETEROL/FLUTICASONE 500/50 INH SCH ×2 (07:00→19:00)
--- NOTE | 2018-09-06 07:10 | NUR ---
Pt received resting in bed. Call chance within reach. Vitals stable. Will monitor
--- NOTE | 2018-09-06 07:18 | NUR ---
REPORT GIVEN TO THE ONCOMING NURSE
[2018-09-06] MEDS: ZINC OXIDE / BALSAM PERU 30 GM TUBE TOP SCH ×2 (08:02→21:04)
[2018-09-06] MEDS: AMLODIPINE BESYLATE 5 MG TAB PO SCH ×2 (08:02→16:30)
[2018-09-06] MEDS: COLLAGENASE 5 GM TUBE TOP SCH (08:02)
--- NOTE | 2018-09-06 08:02 | NUR ---
Wound care done to right foot diabetic ulcer. Emotional support given. Call chance within reach. Pt turned and repositioned. Will monitor
[2018-09-06] MEDS: INSULIN REGULAR, HUMAN 100 UNIT/1 ML 3ML VIAL SQ SCH ×4 (08:03→21:03)
--- NOTE | 2018-09-06 14:15 | NUR ---
Received a call from Dr. Salazar regarding pt's status. Pt is better than yesterday. No c/o pain or discomfort noted or voiced. As per Dr. Salazar, pt can go home. Spoke to pt about going home, and he stated that he does not feel safe enough to go home. Pt stated that he has home health. Dr. Salazar stated to keep pt for tonight. Will monitor
--- NOTE | 2018-09-06 18:38 | NUR ---
care provided. Emotional support given. Will endorse to next shift
--- NOTE | 2018-09-06 19:00 | NUR ---
Report and rounds completed. No issues or concerns at this time. Call light within reach. Will continue to monitor.
--- NOTE | 2018-09-06 19:25 | NUR ---
Spoke with Dr Salazar regarding if patient can be downgraded to medsurg. New order to downgrade patient to medsurg with tele
[2018-09-06] MEDS: ATORVASTATIN 40 MG TAB PO SCH (21:01)
[2018-09-06] MEDS: EZETIMIBE 10 MG TAB PO SCH (21:01)
[2018-09-06] MEDS: GABAPENTIN 300 MG CAP PO SCH (21:01)
[2018-09-06] MEDS: ZOLPIDEM TARTRATE 5 MG TAB PO PRN (21:05)
--- NOTE | 2018-09-06 21:16 | NUR ---
Report called to nurse on med/surg 2 for room 203. Patient belonging gather and to be transported with patient.
--- NOTE | 2018-09-06 21:39 | NUR ---
Pt transferred to room 203. Yamileth ESPINOZA receiving nurse at the bedside. Pt reports no pain or discomfort at this time. No signs of distress noted.
--- NOTE | 2018-09-06 21:45 | NUR ---
Patient transferred from [facility], A&Ox4, respirations even & unlabored, no distress noted. Patient is on RA. Tele in place. Fluids running to left hand, patent & no infiltration noted. L AC SL, patent & no infiltration noted. Patient denies any issues or needs at this time. Call light within reach, side rails x2 raised, bed alarm placed, & bed set to lowest position.
[2018-09-07] MEDS: VANCOMYCIN 250MG/5ML ORAL SOLN PO SCH ×3 (03:45→14:36)
[2018-09-07] MEDS: SODIUM CHLORIDE 0.9% 1000ML 1,000 ML IV SCH ×3 (03:45→14:27)
[2018-09-07] MEDS: CEFEPIME 1GM/NS 0.9% 50 ML 50 ML IV SCH ×2 (03:45→14:36)
[2018-09-07 04:00] VITALS: BP 137/63
[2018-09-07 05:06] LABS: BASOPHILS % 0.4 % (0.0-1.0); EOSINOPHILS # (AUTO) 0.1 (0.0-0.4); EOSINOPHILS % 0.8 % (0.0-6.0); HEMATOCRIT 27.4 % (38.2-49.6); HEMOGLOBIN 9.3 g/dL (14.0-18.0); LYMPHOCYTES % 22.6 % (18.0-39.1); MEAN CORPUSCULAR HEMOGLOBIN 29.6 pg (28-32); MEAN CORPUSCULAR HGB CONC 33.9 g/dL (31-35); MEAN CORPUSCULAR VOLUME 87.3 fL (81-99); MONOCYTES # (AUTO) 1.4 (0.2-0.8); MONOCYTES % 15.3 % (4.4-11.3); NEUTROPHILS # (AUTO) 5.3 (2.1-6.9); NEUTROPHILS % 59.3 % (38.7-80.0); PLATELET COUNT 142 x10e3/uL (140-360); RED BLOOD COUNT 3.14 x10e6/uL (4.3-5.7); RED CELL DISTRIBUTION WIDTH 14.3 % (11.7-14.4)
[2018-09-07 05:25] LABS: ANION GAP 12.2 mmol/L (8-16); BLOOD UREA NITROGEN 12 mg/dL (7-26); BUN/CREATININE RATIO 13 (6-25); CARBON DIOXIDE 22 mmol/L (22-29); CHLORIDE 108 mmol/L (98-107); CREATININE, SERUM 0.93 mg/dL (0.72-1.25); EST GLOMERULAR FILTRATION RATE > 60 ML/MIN (60-); GLUCOSE 104 mg/dL (74-118); POTASSIUM 3.2 mmol/L (3.5-5.1); SODIUM 139 mmol/L (136-145)
[2018-09-07] MEDS: LEVOTHYROXINE SODIUM 125 MCG TAB PO SCH (06:04)
--- NOTE | 2018-09-07 07:00 | NUR ---
RECEIVED BEDSIDE SHIFT REPORT FROM MECHANIC/WELDER RN. PT DENIES NEEDS AT THIS TIME
[2018-09-07] MEDS: INSULIN REGULAR, HUMAN 100 UNIT/1 ML 3ML VIAL SQ SCH ×3 (07:30→16:32)
[2018-09-07 08:01] VITALS: BP 163/73
[2018-09-07] MEDS: POTASSIUM CHLORIDE 20 MEQ TAB CR PO SCH (08:35)
[2018-09-07] MEDS: AMLODIPINE BESYLATE 5 MG TAB PO SCH ×2 (08:36→16:30)
[2018-09-07] MEDS: HYDROCODONE/APAP 10MG-325MG TAB PO PRN (08:38)
[2018-09-07] MEDS: ZINC OXIDE / BALSAM PERU 30 GM TUBE TOP SCH (09:00)
[2018-09-07] MEDS: COLLAGENASE 5 GM TUBE TOP SCH (09:00)
[2018-09-07] MEDS ORDERED: ONDANSETRON HCL 4 MG ORAL DISINTEGRATING TAB PO PRN (09:15)
--- NOTE | 2018-09-07 09:34 | Progress Note ---
DATE: SUBJECTIVE: The patient is here for DKA, status post insulin treatment and the patient is better now. Currently, has no complaints. The patient is eating well. No complaints. No chest pains. No shortness of breath. MEDICATIONS: The patient is on cefepime, vancomycin, insulin as per protocol, Zetia, gabapentin, amlodipine, alprazolam, hydrocodone, potassium chloride, and fluticasone. OBJECTIVE: VITAL SIGNS: Temperature is 97.2, pulse of 81, respirations of 18, blood pressure is 153/60, pulse oximetry of 98% on room air. HEENT: Normocephalic, atraumatic. Pupils reactive to light and accommodation. CVS: S1, S2 normal. Regular rate and rhythm. ABDOMEN: Nontender, nondistended. EXTREMITIES: No clubbing, no cyanosis. Positive for edema. Decreased pulses and also right foot and bandage. LABORATORY VALUES: Sodium is 139, potassium is 3.2, BUN 12, creatinine 0.93. Hematology, white count is down to 8.90, hemoglobin of 9.3, hematocrit of 27.4, lymphocyte count of 22.6, monocytes 15.3. ASSESSMENT: 1. Status post Diabetic ketoacidosis. The patient is out of the gap, doing better. 2. Leukocytosis probably from right foot infection. Continue on vancomycin. 3. Anemia, which is chronic. 4. Uncontrolled diabetes. 5. Hyperlipidemia. 6. Coronary artery disease with defibrillator and peripheral artery disease. PLAN: Plan is to get home health evaluation. The patient's microbiology is not done. No cultures were done. Plan is to possibly discharge the patient with home health. Follow up with me in about a week's time. Further recommendation per clinical course. We will continue to monitor the patient as an outpatient. The patient need to be followed up with Endocrinology and also with Podiatry as an outpatient. MD DENIS Tesfaye/VINICIUS /[id number]
[2018-09-07] MEDS: SALMETEROL/FLUTICASONE 500/50 INH SCH (11:20)
[2018-09-07 12:14] VITALS: BP 163/73
[2018-09-07 12:52] VITALS: BP 175/91
--- NOTE | 2018-09-07 14:23 | NUR ---
WOUND CARE CONSULTATION: INITIAL EVALUATION Patient admitted for nausea, vomiting, diarrhea, abdominal pain with black/bloody stools. DX: Dehydration, Diarrhea, Obesity, DKA. LABS: WBC8.9 HGB9.3 HCT27.4 NEUT%59.3 [id number] PATIENT VISIT: Patient AAOX4 and in good spirits. Calm Cooperative Voices multiple skin areas of interest. Presents with excoriation to bilateral gluteal areas and pressure injury to left gluteal area. Noted on prior visit on 06/23/18 had stage II pressure ulcer to left gluteal. Left Gluteal reddened with partial denuded skin draining small serosanguineous fluid. Tender to touch. Reddened periwound. Bilateral gluteals present with scattered redness and clustered reddened areas. Patient incontinent. States areas began to worsen during his stay at [facility] where he would stay sitting in urine for prolonged periods of time. Right Heel intact. No Redness, no swelling, no tenderness. Right Foot Hallux. At tip of toe presents with small superficial discoloration/scab- stable. Right Foot 5th metatarsal head- annular ulceration, partial thickness with 100% slough measuring 1x0.8x0.3cm . Periwound pink. with small drainage. Patient states following up with Dr. Christa ROMERO at outpatient setting when he is able to get transportation. Patient has home health nurse visits. Patient is set to discharge home today with home health. Kris Score 14 Moderate PUP Active. Alternating Pressure air mattress in place and set to patient current weight Heels being offloaded with pillows support. IMPRESSION: 1. Left Gluteal - Stage II - Pressure Ulcer - Present on admission. 2. Right Lateral Foot at 5th Metatarsal Head, DFU grade 3. RECOMMENDATION: 1. Left Gluteal - Stage II - Pressure Ulcer - Present on admission. - Wash Bilateral Gluteal areas with mild soap and water then pat dry thoroughly. - Apply [place] cream mixed with Nystatin Cream ( 50/50 mix ) every 12 Hours and PRN Soiling. 2. Right Lateral Foot at 5th Metatarsal Head - DFU grade 3. - Cleanse wound with NS and 4x4 gauze Daily - Apply Santyl and Cover with Xeroform Gauze and Secure with 4x4 gauze and Kerlix Wrap Daily. 3. Alternating pressure air mattress and set to patient current weight. 4. Strict Turning and repositioning every 2 hours using turning clock schedule 5. Offload/ Float heels with pillow support / Bilateral Heel Protectors while in bed. 6. Encourage Daily Out of bed Activity. Thank you for consulting with Wound Care. Addendum: 09/07/18 at 1435 by Nitin Ashraf RN Amended: Links added.
--- NOTE | 2018-09-07 14:30 | NUR ---
PER THE PT, HE NEEDS AMBULANCE SERVICE TO GO HOME. PER CASE MANAGEMENT, HOME HEALTH RESUMED AND OKAY TO CALL AMBULANCE SERVICE.
[2018-09-07] MEDS ORDERED: ZINC OXIDE / BALSAM PERU 30 GM TUBE TOP SCH (14:45)
[2018-09-07] MEDS ORDERED: NYSTATIN 100,000 UNITS/GM CRM 30GM TUBE TOP SCH (14:45)
--- NOTE | 2018-09-07 15:21 | NUR ---
Wound care added to home health order. Updated order faxed to [facility] Notified Yue Lemus with [facility] of new order.
[2018-09-07 16:32] VITALS: BP 171/74
[2018-09-08] MEDS ORDERED: ZOFRAN4 MG SL (18:02)
== END 2018-09-07 16:50 | disposition home or self-care (01) | DRG 872 ==
LOC: ER 13:11 → UNDOADMOB 20:20 → ERHOLD 20:20 → IMCU 23:05 → MED/SURG2 09-06 21:40
PROVIDERS: ADMIT Family Medicine; ATTEND Family Medicine
DX: A41.9 Sepsis, unspecified organism (principal); E11.9 Type 2 diabetes mellitus without complications; Z79.4 Long term (current) use of insulin; E86.0 Dehydration; D64.9 Anemia, unspecified
CPT/HCPCS: 36415; 71045; 74177; 80048; 80053; 81001; 82550; 82553; 82948; 83605; 83690; 83880; 84484; 85025; 87493; 94664; 96361; 96372; 99284; J0692; J2405; J2550; J3370; J3480; J7030; Q9967

== ENCOUNTER 2018-09-08 17:34 | Emergency (ER) | payer MEDICARE ==
[~2018-09-08] VITALS: Ht 182.9 cm; Wt 135.6 kg
[~2018-09-08 17:34] MED LIST changes: +AMBIEN10 MG PO; +ASPIR-LOW81 MG PO; +BENADRYL25 M1 PO; +CARVEDILOL12.5 MG PO; +CITALOPRAM HBR20 MG PO; +GABAPENTIN400 MG PO; +GLIMEPIRIDE2 MG PO; +LIPITOR20 MG; +MAGNESIUM OXID400 MG PO; +MULTI-VITAMIN1 EACH PO; +NORCO 5-325 TA1 EACH PO; +ULTRAM 50MG50 MG PO; +ZINC SULFATE220 MG PO; +ZOFRAN4 MG PO
[2018-09-08] MEDS ORDERED: ZOFRAN4 MG SL (18:02)
[2018-09-08 18:15] LABS: BASOPHILS % 0.4 % (0.0-1.0); EOSINOPHILS % 0.3 % (0.0-6.0); HEMATOCRIT 29.6 % (38.2-49.6); HEMOGLOBIN 10.4 g/dL (14.0-18.0); LYMPHOCYTES # (AUTO) 1.8 (1.0-3.2); LYMPHOCYTES % 19.2 % (18.0-39.1); MEAN CORPUSCULAR HEMOGLOBIN 29.5 pg (28-32); MEAN CORPUSCULAR HGB CONC 35.1 g/dL (31-35); MEAN CORPUSCULAR VOLUME 84.1 fL (81-99); MONOCYTES # (AUTO) 1.4 (0.2-0.8); MONOCYTES % 14.7 % (4.4-11.3); NEUTROPHILS # (AUTO) 5.8 (2.1-6.9); NEUTROPHILS % 63.5 % (38.7-80.0); PLATELET COUNT 157 x10e3/uL (140-360); RED BLOOD COUNT 3.52 x10e6/uL (4.3-5.7); RED CELL DISTRIBUTION WIDTH 13.9 % (11.7-14.4)
[2018-09-08 18:34] LABS: ALANINE AMINOTRANSFERASE 18 IU/L (0-55); ALBUMIN 3.5 g/dL (3.5-5.0); ALBUMIN/GLOBULIN RATIO 1.2 (0.8-2.0); ALKALINE PHOSPHATASE 71 IU/L (40-150); AMYLASE 48 U/L (25-125); BLOOD UREA NITROGEN 9 mg/dL (7-26); BUN/CREATININE RATIO 9 (6-25); CALCIUM 8.3 mg/dL (8.4-10.2); CARBON DIOXIDE 24 mmol/L (22-29); CHLORIDE 97 mmol/L (98-107); CREATININE, SERUM 1.01 mg/dL (0.72-1.25); EST GLOMERULAR FILTRATION RATE > 60 ML/MIN (60-); GLUCOSE 236 mg/dL (74-118); LIPASE 58 U/L (8-78); SODIUM 132 mmol/L (136-145)
[2018-09-08] MEDS ORDERED: POTASSIUM CHLORIDE 20 MEQ TAB CR PO STA (18:57)
[2018-09-08] MEDS ORDERED: ONDANSETRON HCL 4 MG ORAL DISINTEGRATING TAB ONE (19:12)
[2018-09-08] MEDS ORDERED: FLUCONAZOLE 100 MG TAB ONE (19:12)
[2018-09-08] MEDS ORDERED: MAGNESIUM SULFATE 2GM/50ML 50 ML IV ONE ×2 (19:15→19:19)
--- NOTE | 2018-09-08 19:15 | NUR ---
REPORT GIVEN TO MUKUL ESPINOZA
[2018-09-08 19:52] VITALS: BP 186/69
[2018-09-08] MEDS ORDERED: FLUCONAZOLE 100 MG TAB PO ONE (20:00)
[2018-09-08] MEDS ORDERED: ONDANSETRON HCL 4 MG ORAL DISINTEGRATING TAB PO NR (20:00)
[2018-09-08] MEDS ORDERED: ONDANSETRON HCL 4 MG ORAL DISINTEGRATING TAB PO ONE (20:00)
== END 2018-09-08 20:51 | disposition home or self-care (01) ==
LOC: ER 17:34
DX: R19.7 Diarrhea, unspecified (principal); B37.2 Candidiasis of skin and nail; E87.6 Hypokalemia; E87.1 Hypo-osmolality and hyponatremia; E83.42 Hypomagnesemia; D64.9 Anemia, unspecified; E11.65 Type 2 diabetes mellitus with hyperglycemia; Z79.4 Long term (current) use of insulin; Z79.84 Long term (current) use of oral hypoglycemic drugs
CPT/HCPCS: 36415; 80053; 82150; 83690; 83735; 85025; 99284; J3475; Q0162

== ENCOUNTER 2018-10-27 14:24 | Inpatient (IN) | payer MEDICARE ==
[~2018-10-27] VITALS: Ht 182.9 cm; Wt 125.8 kg
[~2018-10-27 14:24] MED LIST changes: +ZOFRAN4 MG SL
[2018-10-27] MEDS ORDERED: SODIUM CHLORIDE 0.9% 1000ML 1,000 ML IV STA (14:44)
[2018-10-27] MEDS ORDERED: MORPHINE SULFATE 2 MG/ML SYR 1ML IV NR (14:45)
[2018-10-27] MEDS ORDERED: ONDANSETRON HCL INJ 2MG/ML 2ML 2 MG/ML VIAL IV NR (14:45)
[2018-10-27 15:04] LABS: BASOPHILS % 0.4 % (0.0-1.0); EOSINOPHILS # (AUTO) 0.1 (0.0-0.4); EOSINOPHILS % 1.9 % (0.0-6.0); HEMATOCRIT 33.8 % (38.2-49.6); LYMPHOCYTES # (AUTO) 2.9 (1.0-3.2); LYMPHOCYTES % 42.2 % (18.0-39.1); MEAN CORPUSCULAR HEMOGLOBIN 28.4 pg (28-32); MEAN CORPUSCULAR HGB CONC 32.5 g/dL (31-35); MEAN CORPUSCULAR VOLUME 87.1 fL (81-99); MONOCYTES # (AUTO) 0.9 (0.2-0.8); MONOCYTES % 13.2 % (4.4-11.3); NEUTROPHILS # (AUTO) 2.9 (2.1-6.9); NEUTROPHILS % 41.9 % (38.7-80.0); PLATELET COUNT 197 x10e3/uL (140-360); RED BLOOD COUNT 3.88 x10e6/uL (4.3-5.7); RED CELL DISTRIBUTION WIDTH 14.3 % (11.7-14.4)
[2018-10-27] MEDS ORDERED: LEVOFLOXACIN 500MG/D5W 100ML 100 ML IV SCH (15:15)
[2018-10-27 15:16] LABS: INR 0.9; PROTHROMBIN TIME 12.6 seconds (11.9-14.5)
[2018-10-27 15:17] LABS: PARTIAL THROMBOPLASTIN TIME 30.9 seconds (23.8-35.5)
[2018-10-27 15:26] LABS: ALANINE AMINOTRANSFERASE 18 IU/L (0-55); ALBUMIN 3.2 g/dL (3.5-5.0); ALBUMIN/GLOBULIN RATIO 0.8 (0.8-2.0); ALKALINE PHOSPHATASE 68 IU/L (40-150); BLOOD UREA NITROGEN 10 mg/dL (7-26); BUN/CREATININE RATIO 10 (6-25); CALCIUM 8.8 mg/dL (8.4-10.2); CARBON DIOXIDE 25 mmol/L (22-29); CHLORIDE 101 mmol/L (98-107); CREATINE KINASE 25 IU/L (30-200); CREATININE, SERUM 1.05 mg/dL (0.72-1.25); EST GLOMERULAR FILTRATION RATE > 60 ML/MIN (60-); GLUCOSE 153 mg/dL (74-118); SODIUM 139 mmol/L (136-145)
[2018-10-27] MEDS: VANCOMYCIN 1GM/NS 250 ML 250 ML IV SCH (15:30)
[2018-10-27 15:33] LABS: B-TYPE NATRIURETIC PEPTIDE2 61.2 pg/mL (0-100)
[2018-10-27] MEDS: SODIUM CHLORIDE 0.9% 1000ML 1,000 ML IV SCH (15:38)
[2018-10-27] MEDS ORDERED: LEVOFLOXACIN 250MG/D5W 50ML 50 ML IV ONE (15:45)
[2018-10-27] MEDS ORDERED: DEXTROSE 50% SYRINGE 50 ML IV PRN (15:45)
--- NOTE | 2018-10-27 15:57 | Diagnostic Imaging Report ---
EXAMINATION: FOOT RIGHT COMPLETE INDICATION: Concern for osteomyelitis, foot infection COMPARISON: Right foot radiographs of 06/23/2018 FINDINGS: 3 views of the right foot demonstrate no acute fracture or dislocation. There is soft tissue swelling and apparent defect along the lateral foot soft tissues at the level of the fifth digit MTP joint. There is underlying osteopenia and erosive changes at the fifth metatarsal head concerning for osteomyelitis. This is new compared to the prior foot radiographs of 06/23/2018. Mild pes planus deformity. Mild scattered degenerative changes. Prominent plantar calcaneal spur. Atherosclerotic vascular calcifications. IMPRESSION: Soft tissue swelling and defect at the lateral foot overlying the fifth digit MTP joint with underlying osteopenia and erosive changes of the fifth metatarsal head concerning for osteomyelitis. Signed by: Sandar Pennington MD on 10/27/2018 3:54 PM
--- NOTE | 2018-10-27 15:59 | Diagnostic Imaging Report ---
EXAMINATION: CHEST SINGLE (PORTABLE) INDICATION: Infection COMPARISON: None FINDINGS: LINES/TUBES:Left chest AICD with leads unchanged. EKG leads overlie the chest. LUNGS:The lungs are moderately inflated. No focal consolidation or pulmonary edema. PLEURA:No pleural effusion or pneumothorax. MEDIASTINUM:The cardiomediastinal silhouette appears normal in size and shape. BONES/SOFT TISSUES:No acute osseous injury. ABDOMEN:No free air under the diaphragm. IMPRESSION: No focal pneumonia or pulmonary edema. Signed by: Sandra Pennington MD on 10/27/2018 3:56 PM
[2018-10-27] MEDS ORDERED: ACETAMINOPHEN 325 MG TAB PO NR (16:00)
[2018-10-27] MEDS: INSULIN REGULAR, HUMAN 100 UNIT/1 ML 3ML VIAL SQ SCH ×2 (16:30→20:33)
[2018-10-27 16:43] VITALS: BP 157/67
[2018-10-27 16:50] VITALS: BP 157/67
[2018-10-27] MEDS ORDERED: VANCOMYCIN 1GM/NS 250 ML 250 ML IV SCH (17:00)
[2018-10-27] MEDS ORDERED: PIPER-TAZ 3.375 GM 50 ML IV SCH (18:00)
--- NOTE | 2018-10-27 19:26 | NUR ---
WALKING ROUNDS PERFORMED, RECEIVED PT LAYING SEMI FOWLERS IN BED, AAOX3, RR EVEN AND NON-LABORED, ON ROOM AIR. NO S/SX OF DISTRESS NOTED. (R) FOOT ULCER WRAPPED WITH 4X4 AND KERLIX, SECURED WITH TAPE. LEFT PT LAYING SEMI FOWLERS IN BED, BED IN LOW LOCKED POSITION, SIDE RAILS UPX2, CALL LIGHT AND PHONE WITHIN REACH.
[2018-10-27] MEDS ORDERED: ATORVASTATIN 20 MG TAB PO PRN (19:30)
[2018-10-27] MEDS ORDERED: NYSTATIN 15 GM POWDER UD BTL TOP PRN (19:30)
[2018-10-27] MEDS ORDERED: HYDROCODONE/APAP 10MG-325MG TAB PO PRN (19:45)
[2018-10-27 19:52] VITALS: BP 143/65
--- NOTE | 2018-10-27 20:30 | NUR ---
APPLIED ALTERNATING PRESSURE PUMP TO MATTRESS.
[2018-10-27 20:33] VITALS: BP 143/65
[2018-10-27] MEDS: GABAPENTIN 400 MG CAP PO SCH (20:33)
[2018-10-28] VITALS (8 sets, daily range): BP systolic 118–144; BP diastolic 58–61
--- NOTE | 2018-10-28 00:06 | NUR ---
SPOKE WITH MD MAHONEY CONCERNING PT REQUEST FOR SLEEP AID. NEW ORDERS RECEIVED.
[2018-10-28] MEDS: ZOLPIDEM TARTRATE 5 MG TAB PO PRN ×2 (01:00→21:15)
[2018-10-28] MEDS: SODIUM CHLORIDE 0.9% 1000ML 1,000 ML IV SCH ×3 (01:38→21:15)
--- NOTE | 2018-10-28 02:02 | History and Physical ---
HISTORY OF PRESENTING ILLNESS: This is Mr. Odonnell, who presented to the hospital with pain and swelling in the left lower extremity, especially the foot. The patient has been doing this for several weeks and the patient has some drainage in the foot. The patient's right foot with moderate amount of pain, tenderness, drainage, and the patient has difficulty walking and bearing weight on it, comes in, was found to have right foot cellulitis and possible abscess. The patient admitted for the same. PAST MEDICAL HISTORY: History of uncontrolled diabetes mellitus, history of hyperlipidemia, history of PAD, history of hypertension, history of chronic pain syndrome, history of hypothyroidism, history of hypertension, history of COPD, history of iron deficiency, history of insomnia, history of depression. MEDICATIONS: Long list includes: 1. [place] 10/325 q.6 hours. 2. Alprazolam 1 mg 3 times a day. 3. Amlodipine 5 mg daily. 4. Atorvastatin 20 mg daily. 5. Carvedilol 12.5 mg daily. 6. Citalopram 20 mg daily. 7. Diphenhydramine 25 mg daily. 8. Zetia 10 mg daily. 9. Flonase 1 spray each nostril daily. 10. Lasix 40 mg daily. 11. Gabapentin 400 mg daily. 12. Insulin glargine 35 units a.c. h.s. 13. Levothyroxine 125 mcg daily. The patient also takes Advair, Aldactone 25 mg, and also zolpidem 5 mg at nighttime. PAST SURGICAL HISTORY: The patient has a history of pacemaker placement, AICD placement, history of back surgery, history of toenail removals, and also history of surgery by Podiatry on the left foot. The patient also has ingrown toenails removed by Dr. Goodwin and the patient also has bad case of diabetic neuropathy. ALLERGIES: HISTORY OF ALLERGY TO PENICILLIN. SOCIAL HISTORY: No EtOH. No IV drug abuse. No history of smoking and no history of IV drug abuse. Lives with home. Son and the are the primary stripe matcher. FAMILY HISTORY: Positive for diabetes and CAD. REVIEW OF SYSTEMS: Negative for chest pain. No shortness of breath. Positive for pain in the right lower extremity. Decreased appetite recently. No chest pain. No shortness of breath. No nausea, vomiting, or diarrhea. No constipation. No rectal bleeding. No hematochezia, no hematemesis, and positive for blurry vision. No diplopia either. PHYSICAL EXAMINATION: VITAL SIGNS: Temperature is 97.9, T-max was 99.6, blood pressure is 157/67, respirations of 13, pulse of 88. HEENT: Normocephalic, atraumatic. Chronically ill-appearing patient. CVS: S1 and S2. Irregular. ABDOMEN: Nontender, nondistended. EXTREMITIES: Positive for decreased circulation, PAD significant, cannot feel the pedal pulses. Posterior tibial and dorsalis pedis are positive for multiple excoriations in the right and left foot. Left foot in the heel pad. Right foot positive for tenderness, erythema, lot of discharge from the base of the 5th metatarsal and also from the 4th metatarsal. Excoriations and tenderness present and also edema present in the foot, cellulitis extending all the way midway through the foot. The patient's sensation decreased bilaterally and drastically. LABORATORY VALUES: Initial white count of 6.82, hemoglobin of 11, hematocrit of 33.8, lymphocyte count was 42.2. Chemistry shows sodium of 139, potassium of 4.0, anion gap was 17. Glucose was 143. Lactic acid was 20.4. BNP was 61.2. Coags were normal. Microbiology, pending blood cultures and pending cultures of the right lower extremity. IMAGING STUDIES: Chest x-ray shows no focal pneumonia or pulmonary edema. Foot x-ray shows soft tissue swelling and defect in the lateral foot, lower line 5th digit MTP joint with underlying osteopenia and erosive changes of the 5th metatarsal head concerning for osteomyelitis. ASSESSMENT: 1. Right foot osteomyelitis, recommended to do a bone scan to delineate the problem. 2. Podiatry consult with Dr. Goodwin has been done. Possible metatarsal removal is recommended. Dr. Funk has been consulted too. 3. Peripheral arterial disease, continue on statins. We will do an arterial Doppler too. 4. Uncontrolled diabetes. Continue with Lantus and also insulin sliding scale. 5. Hyperlipidemia, continue with statin. 6. Chronic obstructive pulmonary disease. Albuterol and Atrovent treatment as needed. 7. Debility. He will need physical therapy and rehabilitation as per SNF. 8. Also, the patient has multiple amount of tinea cruris. Nystatin will be applied. Further recommendation per clinical course. PLAN AND DISPOSITION: Surgical evaluation, possible surgery, discharge to SNF in possible 2 to 3 days. MD DENIS Tesfaye/VINICIUS /[id number]
[2018-10-28] MEDS: VANCOMYCIN 1GM/NS 250 ML 250 ML IV SCH ×2 (02:47→15:28)
[2018-10-28 06:41] LABS: BASOPHILS % 0.3 % (0.0-1.0); EOSINOPHILS # (AUTO) 0.1 (0.0-0.4); EOSINOPHILS % 1.6 % (0.0-6.0); HEMATOCRIT 29.3 % (38.2-49.6); HEMOGLOBIN 9.4 g/dL (14.0-18.0); LYMPHOCYTES # (AUTO) 2.6 (1.0-3.2); LYMPHOCYTES % 36.5 % (18.0-39.1); MEAN CORPUSCULAR HEMOGLOBIN 27.8 pg (28-32); MEAN CORPUSCULAR HGB CONC 32.1 g/dL (31-35); MEAN CORPUSCULAR VOLUME 86.7 fL (81-99); MONOCYTES # (AUTO) 1.1 (0.2-0.8); MONOCYTES % 16.3 % (4.4-11.3); NEUTROPHILS # (AUTO) 3.2 (2.1-6.9); NEUTROPHILS % 44.9 % (38.7-80.0); PLATELET COUNT 167 x10e3/uL (140-360); RED BLOOD COUNT 3.38 x10e6/uL (4.3-5.7); RED CELL DISTRIBUTION WIDTH 14.2 % (11.7-14.4)
[2018-10-28] MEDS: GABAPENTIN 400 MG CAP PO SCH ×3 (06:44→21:15)
[2018-10-28 07:04] LABS: ALANINE AMINOTRANSFERASE 14 IU/L (0-55); ALBUMIN 2.8 g/dL (3.5-5.0); ALBUMIN/GLOBULIN RATIO 0.8 (0.8-2.0); ALKALINE PHOSPHATASE 57 IU/L (40-150); ANION GAP 15.7 mmol/L (8-16); BLOOD UREA NITROGEN 10 mg/dL (7-26); BUN/CREATININE RATIO 10 (6-25); CALCIUM 8.3 mg/dL (8.4-10.2); CARBON DIOXIDE 24 mmol/L (22-29); CHLORIDE 103 mmol/L (98-107); CREATININE, SERUM 0.96 mg/dL (0.72-1.25); EST GLOMERULAR FILTRATION RATE > 60 ML/MIN (60-); GLUCOSE 88 mg/dL (74-118); MAGNESIUM 1.3 MG/DL (1.3-2.1); PHOSPHORUS 2.6 MG/DL (2.3-4.7); POTASSIUM 3.7 mmol/L (3.5-5.1); SODIUM 139 mmol/L (136-145)
--- NOTE | 2018-10-28 07:20 | NUR ---
PATIENT REPOSITIONED IN BED BY 2 STAFF. DRESSING INTACT TO RIGHT FOOT, ESCHAR TO LEFT FOOT, REDNESS TO GROIN. IV FLUID INFUSING ORDERED. BED IN LOWER POSITION, CALL LIGHT AT REACH.
--- NOTE | 2018-10-28 07:29 | Progress Note ---
DATE: SUBJECTIVE: The patient is a 78-year-old gentleman with a history of uncontrolled diabetes mellitus, comes in with right lower extremity pain and swelling, was found to have osteomyelitis in the right foot. Current medications includeamlodipine, gabapentin, hydrocodone for pain, insulin. The patient is on vancomycin. The patient is allergic to penicillin. The patient is also getting Ambien for nights. No chest pains. No shortness of breath. No nausea, vomiting, or diarrhea. Pain is controlled. Slept well. No other complaints. OBJECTIVE: VITAL SIGNS: Temperature is 97.1, afebrile since he has been here in the hospital, pulse of 91, respirations of 18, blood pressure is 127/60, and pulse oximetry of 93%. HEENT: Normocephalic, atraumatic. Pupils reactive to light and accommodation. CVS: S1 and S2 are normal. Regular rate and rhythm. ABDOMEN: Nontender, nondistended. EXTREMITIES: Right lower extremity decreased pulses and also positive for bandage. The patient has erythema tenderness and excoriation with some discharge in the right lower extremity. LABORATORY VALUES: Pending today. Chemistries; lactic acid repeat was 19.8, the first one was 20.4. Otherwise, blood sugars are running in the 190s to 200s. BNP was normal at 61.2. MICROBIOLOGY: Gram stain wound cultures pending and blood cultures are pending too. IMAGING STUDIES: Seen from x-ray. Foot x-ray demonstrating possible osteomyelitis on the 5th metatarsal head. ASSESSMENT: 1. Osteomyelitis of the right foot, may need a bone scan with Dr. Goodwin. 2. Podiatry consult with Dr. Goodwin for possible amputation. 3. Peripheral arterial disease, an arterial Doppler has been ordered. 4. Uncontrolled diabetes. We will continue with Lantus and sliding scale. 5. Hyperlipidemia. Continue on statins. 6. Chronic obstructive pulmonary disorder, albuterol and Atrovent treatment. 7. Debility. We will need SNF evaluation after surgical treatment and also probably IV antibiotics will be needed for the osteomyelitis. Further recommendation per clinical course. We will also consult Dr. Zacarias for ID, and we will continue to monitor the patient. Bob Flores MD ASJ/VINICIUS Snyder: 10/28/2018 06:54:51 /[id number]
[2018-10-28] MEDS: INSULIN REGULAR, HUMAN 100 UNIT/1 ML 3ML VIAL SQ SCH ×4 (07:30→21:00)
[2018-10-28] MEDS: AMLODIPINE BESYLATE 5 MG TAB PO SCH ×2 (09:00→17:00)
[2018-10-28] MEDS: LEVOFLOXACIN 750MG/D5W 150ML 150 ML IV SCH (09:07)
[2018-10-28] MEDS: NYSTATIN 15 GM POWDER UD BTL TOP SCH ×2 (09:07→17:40)
--- NOTE | 2018-10-28 11:15 | NUR ---
ASSISTED WITH DIAPER CHANGE. VOIDED LARGE AMOUNT OF CLEAR YELLOW URINE. RIGHT FOOT ELEVATED ON PILLOW. IN BED WITH CALL LIGHT AT REACH.
--- NOTE | 2018-10-28 13:29 | NUR ---
WOUND CARE NURSE INITIAL CONSULTATION. 78 YEAR OLD MALE ADMITTED TO [facility] WITH DX OF CELLULITIS, AND DIABETIC FOOT ULCER WITH INFECTION. HEAD TO TOE SKIN ASSESSMENT PERFORMED TODAY. PT PRESENTS WAGNERS III DIABETIC FOOT ULCER TO RIGHT 5TH METATARSAL HEAD. 1.5X1.2X0.3CM 100% SLOUGH. SWELLING AND AND PURPLE DISCOLORATION SURROUNDS ULCER AND LATERAL ASPECT OF DORSAL FOOT. MINIMAL SEROSANGUINEOUS DRAINAGE IS PRESENT. A 1.5X0.5X0.1CM UNSTAGEABLE PRESSURE ULCER TO LEFT LATERAL HEEL. 100% ESCHAR. YEAST TO BILATERAL GROIN IS NOTED WELL DENUDED SKIN TO BILATERAL BUTTOCKS. PT REQUIRES MAXIMUM ASSISTANCE TO REPOSITION.THERE ARE NO OTHER AREAS IF CONCERN AT THIS TIME. LABS: WBC: 7.01 ESR: 67 BLOOD AND WOUND CULTURE RESULTS ARE PENDING. ARTERIAL DUPLEX RESULTS PENDING. PER PT. DR. SIMMS IS PLANNING SURGERY BUT HE DOES NOT KNOW WHEN. RECOMMENDATIONS: REPOSITION PT EVERY TWO HOURS AND PRN. PROVIDE BILATERAL HEEL PROTECTORS AND PILLOW SUSPENSIONS. CONTINUE WITH ALTERNATING LOW AIR LOSS MATTRESS CONTINUE WITH CURRENT WOUND CARE ORDERS FROM DR. SIMMS. APPLY A FOAM DRESSING TO LEFT LATERAL HEEL. CHANGE AND ASSESS DAILY. CONTINUE WITH NYSTATIN TO BILATERAL GROIN DAILY. APPLY VENELEX OINTMENT BID TO BILATERAL BUTTOCKS. THANKS FOR THIS CONSULTATION. Addendum: 10/28/18 at 1350 by Maura Allen RN Amended: Links added.
[2018-10-28 16:04] LABS: BILIRUBIN,URINE NEGATIVE (NEGATIVE); CLARITY,URINE CLOUDY (CLEAR); COLOR,URINE YELLOW (YELLOW); KETONES,URINE NEGATIVE (NEGATIVE); LEUKOCYTE ESTERASE ,URINE LARGE (NEGATIVE); NITRITE,URINE NEGATIVE (NEGATIVE); PROTEIN,URINE DIPSTICK 1+ (NEGATIVE); URINE UROBILINOGEN 0.2 mg/dL (0.2 - 1)
--- NOTE | 2018-10-28 16:06 | NUR ---
WOUND CARE NURSE CHANGED DRESSING AT BED SIDE. PATIENT TOLERATED PROCEDURE WELL. URINE SPECIMEN COLLECTED AND SENT TO THE LAB. IN BED WITH CALL LIGHT AT REACH.
[2018-10-28 16:16] LABS: BACTERIA,URINE FEW /HPF; WBC,URINE (MAN) >50 /HPF (0-5)
[2018-10-28] MEDS: BALSAM PERU/CASTOR OIL 60 GM OINT...G. TP SCH (17:40)
[2018-10-28] MEDS: ONDANSETRON HCL INJ 2MG/ML 2ML 2 MG/ML VIAL IV PRN (18:31)
--- NOTE | 2018-10-28 19:08 | Consultation ---
DATE OF CONSULTATION: ROOM NUMBER: [facility], [id number]. CHIEF COMPLAINT AND HISTORY OF CHIEF COMPLAINT: Mr. Odonnell is most pleasant 78-year-old gentleman with a history of diabetes, multiple health issues, but particularly diabetic foot ulcerations. He presented with swelling, numbness, and pain to his right foot. He states that in the past he has had an ulceration on his left heel and in fact was treated for that here last year. The wound on his left foot is fairly stable at this point, and he now has open draining wound, right foot, sub 5th metatarsal. PAST MEDICAL HISTORY: The patient's previous medical history included diabetes, history of peripheral arterial disease, hypertension, chronic pain syndrome, hypertension, chronic obstructive pulmonary disease. He does have a history of depression. MEDICATIONS: His current medications are well documented elsewhere within the chart. PAST SURGICAL HISTORY: Previous surgical history, he has had minor foot surgeries in the past, all of which have healed adequately. ALLERGIES: HE IS ALLERGIC TO PENICILLIN. SOCIAL HISTORY: The patient lives at home with his family. He states he has been unable to leave the house for quite some time, was not able to come in for any followup appointments. He states he has difficulty getting out as he cannot get in and out of vehicles, and does not feel his family is adequately able to care for him in that regard. FAMILY HISTORY: Does include diabetes, coronary artery disease. REVIEW OF SYSTEMS: The patient is currently complaining of no other significant issues. PHYSICAL EXAMINATION: EXTREMITIES: Physical evaluation of lower extremity, vascular status, the patient has nonpalpable pedal pulses, neither dorsalis pedis, nor posterior tib, both in either the left nor right foot. NEUROLOGICAL: There is loss of protective sensation as evidenced by Pengilly-Mignon monofilament testing equal and symmetrical bilaterally. DERMATOLOGICALLY: There is a mild partial-thickness ulceration of the left heel, which appears to be healing adequately. There is a mild purplish hue to the heel area on the left without further or more significant breakdown. On the right, there is a significant purpura with a bluish discoloration to the entire lateral aspect of the right foot. There is an open draining wound overlying the 5th metatarsal head with some edema present as well abscess cellulitis. MUSCULOSKELETAL: Evaluation is positive for osteomyelitis of the 5th metatarsal of the right foot. Obvious abscess cellulitis from clinical exam. DIAGNOSIS: Abscess cellulitis with osteomyelitis of the right 5th metatarsal. Peripheral arterial disease, diabetic ulceration. At this point, vascular evaluation is proceeding. He was having the arterial Doppler at the time of my review. We will await those results. The patient will likely need surgical intervention of the right lower extremity, timing is of question. We will await the vascular status and any recommended procedures from a Vascular consultation. However, as soon as that information is available and scheduling permits within the next couple of days, we will do an I and D of the right foot with excision of the 5th metatarsal head amputation of the 5th digit to clean the area and packed open. The patient will need long-term care with IV antibiotics, minimum 6 to 8 weeks to facilitate wound healing and eradication of osteomyelitis. Thank you very much, Dr. Flores, for asking me to see this most pleasant patient. NICK Carmen/VINICIUS /[id number]
--- NOTE | 2018-10-28 19:16 | NUR ---
PATIENT C/O NAUSEA. PRN ZOFRAN GIVEN ORDERED. PATIENT IN BED WATCHING TV AT THIS TIME. NO MORE C/O NAUSEA. WILL CONTINUE TO MONITOR.
--- NOTE | 2018-10-28 19:21 | NUR ---
WALKING ROUND MADE AND REPORT GIVEN TO ON COMING NURSE.
--- NOTE | 2018-10-28 20:34 | Consultation ---
DATE OF CONSULTATION: REASON FOR CONSULTATION: Osteomyelitis of the right foot. HISTORY OF PRESENT ILLNESS: This patient, who is a very pleasant 78-year-old white male, history of diabetes mellitus, who has history of neuropathy, history of a problem with his feet before. The patient has been having ulcer in his left lower extremity. He has been getting home health and oral antibiotic. He was recently in the hospital, where he received a week course of intravenous antibiotic and he was discharged home. The patient does have history of diabetes mellitus, coronary artery disease, peripheral vascular disease, hypertension, chronic pain syndrome, hypothyroidism, hypertension, COPD, iron deficiency, insomnia, depression, obesity, multiple infections of his feet before, arrhythmia status post AICD, multiple debridement of his feet, back surgery, toenail removals before, comes in with worsening infection of his left foot, redness and swelling and drainage in spite of antibiotic and local care. The patient is being admitted and Podiatry has been consulted and Infectious Disease consulted. PAST MEDICAL HISTORY: In addition to hypertension, diabetes, hypercholesteremia, hypothyroidism, neuropathy, diabetic neuropathy, and chronic kidney disease. PAST SURGICAL HISTORY: As above. ALLERGIES: NKA. SOCIAL HISTORY: There is no smoking, drug abuse, or alcohol abuse. FAMILY HISTORY: Hypertension and diabetes. REVIEW OF SYSTEMS: HEENT: There is no headache, visual changes, or hearing changes. GI: There is no nausea, no vomiting, no diarrhea. CARDIAC: There is no arrhythmia. NEURO: No seizure activity or local weakness. SKIN: There are no other rashes. His review of systems otherwise totally negative except for the pain in bilateral lower extremities. Also, he has tingling sensation in both lower extremities. LABORATORY DATA: Reviewed. Cultures are still pending. White count is 7.0, hemoglobin 9.4, and hematocrit 29. His sedimentation rate was 67. Sodium 139, potassium 3.7, and creatinine 0.96. Liver enzymes otherwise within normal limits. He had an x-ray of the right foot, which showed soft tissue swelling with defect at the lateral foot overlying the 5th digit and osteopenia and erosive changes of the 5th digit concerning of osteomyelitis. PHYSICAL EXAMINATION: GENERAL: He is currently alert and oriented, does not seem to be in acute distress. VITAL SIGNS: Stable. Currently afebrile. HEENT: Normocephalic. Not appear icteric. NECK: Supple. No JVD. No lymphadenopathy. No thyromegaly. CHEST: Clear bilateral. HEART: S1 and S2. No S3, S4, or murmur. ABDOMEN: Soft. Bowel sounds present. No tenderness. FOOT: There is erythema. There is edema involving the right foot, especially above the 5th toe with ulcer deep. IMPRESSION: 1. I think patient of osteomyelitis. He is failing medical therapy. a. Recommend agree with vancomycin and Levaquin for the time being, surgical debridement to send bone for culture and sensitivity. We get a PICC line. Weekly CBC, weekly chem panel. The patient would benefit from going to an LTAC since he failed oral antibiotic and local care as outpatient. We will discuss with the medical team. We will follow with you. 2. Diabetes from hypertension. 3. Neuropathy. 4. We will follow. MD GHISLAINE Alan/MODL /[id number]
--- NOTE | 2018-10-28 21:15 | NUR ---
PATIENT LAYING IN BED, AAOX3, NO RESPIRATORY DISTRESS NOTED AND IS EVEN AND NON-LABORED, ON ROOM AIR. RIGHT FOOT ULCER WRAPPED AND SECURED WITH DRESSING. BED IN LOW LOCKED POSITION, BOTH SIDE RAILS ARE UP, CALL LIGHT WITHIN REACH, WILL CONTINUE TO MONITOR.
[2018-10-29] VITALS (8 sets, daily range): BP systolic 139–169; BP diastolic 63–74
[2018-10-29] MEDS: VANCOMYCIN 1GM/NS 250 ML 250 ML IV SCH ×2 (02:37→14:45)
--- NOTE | 2018-10-29 02:54 | NUR ---
PATIENT IS RESTING IN BED, BOTH EYES ARE CLOSED. NO RESPIRATORY DISTRESS NOTED, IV IS RUNNING AT ORDERED RATE AND PATIENT, CALL LIGHT WITHIN REACH.
--- NOTE | 2018-10-29 07:00 | NUR ---
Walking rounds done and report received. Patient is awake, alert, and able to make needs known. Tele#[id number], paced @83. Bed in lowest position, locked, and call chance within reach.
[2018-10-29] MEDS: INSULIN REGULAR, HUMAN 100 UNIT/1 ML 3ML VIAL SQ SCH ×4 (07:30→21:05)
[2018-10-29] MEDS: AMLODIPINE BESYLATE 5 MG TAB PO SCH ×2 (08:34→18:10)
[2018-10-29] MEDS: GABAPENTIN 400 MG CAP PO SCH ×3 (08:34→21:05)
[2018-10-29] MEDS: BALSAM PERU/CASTOR OIL 60 GM OINT...G. TP SCH ×2 (08:34→17:51)
[2018-10-29] MEDS: NYSTATIN 15 GM POWDER UD BTL TOP SCH ×2 (08:34→17:51)
[2018-10-29] MEDS: LEVOFLOXACIN 750MG/D5W 150ML 150 ML IV SCH (08:34)
[2018-10-29] MEDS: SODIUM CHLORIDE 0.9% 1000ML 1,000 ML IV SCH ×2 (08:34→17:38)
--- NOTE | 2018-10-29 09:57 | Progress Note ---
DATE: SUBJECTIVE: The patient is a 78-year-old male, who comes in with right foot cellulitis and osteomyelitis. Dr. Goodwin and Dr. Zacarias have seen the patient. The patient is currently on vancomycin and Levaquin. CV medications are reinstated and started. The patient's diabetes medicines also reinstated. Currently asymptomatic. Pain is controlled. No chest pain. No shortness of breath. The patient did have lower extremity ultrasounds yesterday. OBJECTIVE: GENERAL: The patient is alert and oriented x3. VITAL SIGNS: Temperature is 97.0, respirations of 20, pulse of 81, blood pressure is 142/66. HEENT: Normocephalic, atraumatic. Obese. CVS: S1, S2 normal, regular rhythm. ABDOMEN: Nontender, nondistended, pendulous. EXTREMITIES: Right lower extremity in bandage. MICROBIOLOGY: Blood cultures; no growth so far. Wound culture preliminary shows culture preliminary in progress and re-incubation required. ASSESSMENT: 1. Osteomyelitis of the right foot. 2. Uncontrolled diabetes mellitus. 3. History of hypertension. 4. History of peripheral arterial disease. 5. Hyperlipidemia. 6. Chronic obstructive pulmonary disorder. 7. Debility. PLAN: The patient will have incision and drainage today. The patient can be transferred to LTAC after IV antibiotics have been instituted and will need six weeks of antibiotic on osteomyelitis. Given his debility and his deconditioning, the patient will need SNF eval and possible treatment with IV antibiotic in SNF given the debility and the inability to perform at home by himself. MD DENIS Tesfaye/MODL /[id number]
--- NOTE | 2018-10-29 13:00 | NUR ---
Patient is off the unit to nuclear medicine for a bone scan.
--- NOTE | 2018-10-29 13:12 | Diagnostic Imaging Report ---
EXAM: CT right foot with contrast CT scan of the left foot with contrast 10/29/2018 9:37 AM INDICATION: Cellulitis. Diabetes. Abscess. Osteomyelitis. COMPARISON: None TECHNIQUE: Right foot was scanned utilizing a multidetector helical scanner after administration of IV contrast. Coronal and sagittal reformations were obtained. Routine protocol was performed. Left foot was scanned utilizing a multidetector helical scanner after administration of IV contrast. Coronal and sagittal reformations were obtained. Routine protocol was performed. IV CONTRAST: 100 mL of Isovue-370 COMPLICATIONS: None RADIATION DOSE: Total DLP: 131 mGy*cm Estimated effective dose: (DLP x 0.014 x size factor) mSv CTDIvol has been reviewed. It is below the limits set by the Radiation Protocol Committee (RPC). Dose modulation, iterative reconstruction, and/or weight based adjustment of the mA/kV was utilized to reduce the radiation dose to as low as reasonably achievable. FINDINGS: Right foot: Abnormal soft tissue swelling with apparent skin ulceration at the level of the distal fifth metatarsal with associated osseous erosion and cortical destruction involving the distal fifth metatarsal and proximal fifth toe consistent with osteomyelitis. No acute fracture, subluxation or avascular process. Scattered degenerative change about the remaining visualized osseous structures. Posterior and inferior calcaneal bone spurs. Scattered vascular calcification. No radiopaque foreign body Left foot: Surgical anchors in the posterior calcaneus with thickening of the distal Achilles tendon. Abnormal soft tissue swelling with apparent skin thickening at the level of the distal fifth metatarsal. No definite underlying osseous erosion or cortical destruction is seen to suggest osteomyelitis at this time. No acute fracture, subluxation or avascular process. Scattered degenerative change about the remaining visualized osseous structures. Posterior and inferior calcaneal bone spurs. Scattered vascular calcification. No radiopaque foreign body Impression: Right foot: Findings consistent with osteomyelitis involving the distal right fifth metatarsal and proximal fifth toe. Left foot: Postsurgical change in the posterior calcaneus with thickening of the distal Achilles tendon likely due to chronic tendinosis. Abnormal soft tissue swelling with apparent skin thickening at the level of the distal fifth metatarsal. No definite underlying osseous erosion or cortical destruction is seen to suggest osteomyelitis in the left foot at this time. Signed by: Dr. Hung Haywood M.D. on 10/29/2018 1:09 PM
[2018-10-29] MEDS ORDERED: SODIUM CHLORIDE 0.9% 50ML 50 ML ONE (14:23)
[2018-10-29] MEDS ORDERED: IOPAMIDOL 370 MG/ML 200 ML INFUS..BTL INJ ONE (14:23)
--- NOTE | 2018-10-29 15:12 | NUR ---
Patient remains off unit in bone scan
--- NOTE | 2018-10-29 16:43 | NUR ---
Dr. Zacarias paged to notify of [facility]. awaiting call back.
--- NOTE | 2018-10-29 18:15 | NUR ---
Patient returned from bone scan. Wound care done.
--- NOTE | 2018-10-29 19:00 | NUR ---
Received patient awake on bed, with ongoing IVF, Right foot wound/ulcer open to air, dressing was removed by MD per patient. Call light within easy reach, advised to call for assistance when needed. Will continue to monitor
--- NOTE | 2018-10-29 19:33 | Diagnostic Imaging Report ---
Bone Scan, three-phase - feet and ankles Reason for exam: Right foot cellulitis Radiopharmaceutical: Tc-99m MDP 27 mCi Comparison: Prior 3-phase bone scan 06/23/2018; right foot radiograph 10/29/2018 Following intravenous administration of the radiopharmaceutical, dynamic flow and immediate blood pool images of the feet and ankles followed by delayed spot images were obtained. Flow and blood pool images show diffusely symmetric distribution of tracer activity to the feet and ankles with focal markedly increased tracer activity in the lateral aspect of the right foot distally. Delayed images of the feet show focal markedly increased tracer activity in the distal portion of the right 5th metatarsal. Impression: Scan findings are consistent with osteomyelitis in the distal portion of the right 5th metatarsal. Bone scan lacks specificity in the setting of complicated osteomyelitis and also cannot be used for identifying the end-point for treatment because osteoblastic activity persists after active infection has been adequately treated. A labeled white blood cell study adds specificity to the evaluation of osteomyelitis and can also be used to determine eradication of the infection. Signed by: Dr. Margarita Mckeno M.D. on 10/29/2018 7:30 PM
--- NOTE | 2018-10-29 21:00 | NUR ---
Right foot dressing done with saline wet to dry, wrapped with Kerlix per patient request
[2018-10-29] MEDS: ZOLPIDEM TARTRATE 5 MG TAB PO PRN (21:05)
--- NOTE | 2018-10-29 21:37 | Progress Note ---
DATE: Review of the patient's condition today shows osteomyelitis of 5th metatarsal, 5th digit, right foot with abscess cellulitis, improving with IV antibiotics. The left foot wound has an ulcer as well on the heel, full thickness through skin and subcutaneous tissue. We discussed pros and cons of further treatment and surgical debridement. The patient has agreed to accept all risks inherent to the procedure. Tomorrow morning amputation of the right 5th digit and metatarsal will be performed under anesthesia with the appropriate dressings applied. On the left foot a full thickness debridement through skin and subcutaneous tissue will be performed as well on the heel ulcer. All questions asked were answered. The patient has agreed to accept the risks inherent to the procedure, will be returning to the floor for further IV antibiotics and may be discharged at any point, thereafter to LT for IV antibiotics, further wound care, and reconditioning. NICK Carmen/VINICIUS /[id number]
[2018-10-30] VITALS (8 sets, daily range): BP systolic 103–164; BP diastolic 56–73
[2018-10-30] MEDS: VANCOMYCIN 1GM/NS 250 ML 250 ML IV SCH ×2 (02:45→14:45)
[2018-10-30] MEDS: SODIUM CHLORIDE 0.9% 1000ML 1,000 ML IV SCH ×3 (03:02→15:13)
--- NOTE | 2018-10-30 06:41 | NUR ---
Patient refused shower, wiped bilateral feet with Hibiclens wipes, gauze and kerlix dressing in place, NPO maintained
[2018-10-30] MEDS: INSULIN REGULAR, HUMAN 100 UNIT/1 ML 3ML VIAL SQ SCH ×4 (07:30→20:11)
--- NOTE | 2018-10-30 07:30 | Progress Note ---
DATE: SUBJECTIVE: The patient is here for osteomyelitis of the right foot. The patient is scheduled for amputation today. Currently asymptomatic. No chest pain. No shortness of breath. The patient is sleeping comfortably. OBJECTIVE: VITAL SIGNS: Temperature is 96.3, pulse of 82, respirations of 16, blood pressure is 145/73, and pulse oximetry of 98%. HEENT: Normocephalic. LUNGS: Decreased air entry. CVS: S1 and S2 normal. ABDOMEN: Nontender, nondistended. EXTREMITIES: Right extremity in bandage. LABORATORY VALUES: White count is 7.01, hemoglobin of 9.4, hematocrit of 29.3. Chemistries; glucose running in the 120s to 160s. MICROBIOLOGY: Staphylococcus species isolated in the urine culture and wound culture shows Staphylococcus aureus and identification and susceptibility to follow. IMAGING STUDIES: Bone scan done shows osteomyelitis in the distal portion of the right 5th metatarsal bone. ASSESSMENT: 1. Osteomyelitis of the right foot 5th metatarsal. 2. Uncontrolled diabetes mellitus. 3. Hypertension. 4. Peripheral artery disease. 5. Hyperlipidemia. 6. Chronic obstructive pulmonary disorder. 7. Debility. PLAN: 1. Continue with incision and drainage and also amputation of the 5th toe. 2. Continue with IV antibiotic. 3. Continue with diabetic medication and hyperlipidemic agent. Disposition and plan would be to transfer to accepting facility depending on insurance clearance. Further recommendation per clinical course. We will continue to monitor the patient. Dr. Zacarias, ID and Dr. Goodwin, Podiatry is on the case. MD DENIS Tesfaye/VINICIUS /[id number]
--- NOTE | 2018-10-30 07:30 | NUR ---
PT IN BED SLEEPING NO DISTRESS NOTED .DENIES PAIN,LOWER EXT ELEVATED ON PILLOW.
[2018-10-30] MEDS: LEVOFLOXACIN 750MG/D5W 150ML 150 ML IV SCH (08:13)
[2018-10-30] MEDS: GABAPENTIN 400 MG CAP PO SCH ×3 (08:13→20:10)
[2018-10-30] MEDS: NYSTATIN 15 GM POWDER UD BTL TOP SCH ×2 (08:13→16:50)
[2018-10-30] MEDS: AMLODIPINE BESYLATE 5 MG TAB PO SCH ×2 (08:13→16:50)
[2018-10-30] MEDS ORDERED: BACITRACIN 50,000 UNIT VIAL ONE (10:23)
[2018-10-30] MEDS ORDERED: MUPIROCIN 2% OINT 22 GM TUBE ONE (10:23)
[2018-10-30] MEDS ORDERED: FENTANYL CITRATE/PF 100MCG/2 ML INJ ONE (13:15)
--- NOTE | 2018-10-30 14:22 | Operative Report ---
DATE OF PROCEDURE: SURGEON: Jan Goodwin DPM PREOPERATIVE DIAGNOSES: Osteomyelitis, 5th metatarsal and digit, right foot; chronic wound plantar lateral heel, left foot. POSTOPERATIVE DIAGNOSES: Osteomyelitis, 5th metatarsal and digit, right foot; chronic wound plantar lateral heel, left foot. TITLE OF THE OPERATION: 1. Incision and drainage with amputation of the 5th digit and 5th metatarsal of the right foot. 2. Full-thickness wound debridement, excisional, plantar lateral aspect of the left foot. PROCEDURE IN DETAIL: The patient was taken to the operating room in a mildly sedated state and placed on the operating table in supine position. Following induction of general anesthetic, the left and right lower extremities were elevated and prepped and draped in usual aseptic manner utilizing Betadine prep. The attention was directed 1st to the wound on the left foot, which was full thickness through skin and subcutaneous tissue utilizing a #15 blade the area was debrided sharply with excisional debridement. The wound base was necrotic in nature. The wound measured 3 cm in circumference and approximately 1 cm in depth. After debridement, the area was packed with a combination of Bactroban and dry gauze. Appropriate, mildly compressive dressings were applied. Attention was directed to the right foot for amputation. At this point, attention was directed to the right foot where a linear longitudinal incision was made overlying the dorsal aspect of the 5th metatarsal and 5th digit. The incision was extended circumferentially in a hockey-stick shaped incision around the 5th digit. The digit as well as 1st metatarsal were resected utilizing oscillating saw. Deep tissues were cultured as was bone and there is an open draining wound on the plantar aspect of the 5th metatarsal area. The area was packed with human tissue allograft and deep closure was 3-0 Vicryl and 4-0 nylon. Attention was directed to the plantar aspect, which was then further debrided and Simpulse had been used after irrigation to completely cleanse all areas. All superficial and deep bleeders were electrocoagulated after amputation. The packing was quarter-inch iodoform in the plantar aspect of the foot. The appropriate mildly compressive dressings were applied. The patient left the operating room, vital signs are stable in apparent satisfactory condition and having tolerated both anesthetic and the procedure very well. NICK Carmen/VINICIUS /[id number]
[2018-10-30] MEDS: MORPHINE SULFATE INJ 4 MG/ML INJ 1ML IV PRN ×2 (14:31→20:10)
--- NOTE | 2018-10-30 14:43 | NUR ---
ORDERS TODAY FOR LTAC CHOICE LETTER SIGNED AND PLACED ON CHART MOT INITIATED AND PLACED ON FRONT OF PACKET [employer] WITH [facility] NOTIFIED OF CONSULT PLAN TRANSFER WHEN APPROVED BY INSURANCE
[2018-10-30] MEDS: BALSAM PERU/CASTOR OIL 60 GM OINT...G. TP SCH ×2 (16:50→17:00)
[2018-10-30] MEDS ORDERED: ROCURONIUM BROMIDE 10 MG/ML 5ML VIAL ONE (17:19)
[2018-10-30] MEDS ORDERED: ONDANSETRON HCL INJ 2MG/ML 2ML 2 MG/ML VIAL ONE (17:19)
[2018-10-30] MEDS ORDERED: SEVOFLURANE INHAL SOLN 250 ML PEN BTL ONE (17:19)
[2018-10-30] MEDS: ONDANSETRON HCL INJ 2MG/ML 2ML 2 MG/ML VIAL IV PRN (20:10)
[2018-10-30] MEDS: ZOLPIDEM TARTRATE 5 MG TAB PO PRN (20:15)
--- NOTE | 2018-10-30 20:45 | NUR ---
PATIENT HAD VOMITED INTO BAG. VOICED THAT ZOFRAN DID NOT DO ANYTHING FOR NAUSEA, BUT FELT MORE RELIEVED AFTER VOMITING. PATIENT WAS CLEANED AND GOWN WAS CHANGED. WILL CONTINUE TO MONITOR.
[2018-10-31] VITALS (8 sets, daily range): BP systolic 113–157; BP diastolic 57–70
[2018-10-31] MEDS: MORPHINE SULFATE INJ 4 MG/ML INJ 1ML IV PRN ×5 (01:39→20:36)
[2018-10-31] MEDS: ONDANSETRON HCL INJ 2MG/ML 2ML 2 MG/ML VIAL IV PRN ×5 (01:39→20:36)
--- NOTE | 2018-10-31 01:40 | NUR ---
PATIENT VOICED THAT HE FELT NAUSEAS AND HAD VOMITED IN BAG AGAIN. ALSO VOICED PAIN AT A LEVEL OF 9, AND WAS MEDICATED ORDERED FOR BOTH SITUATIONS. PATIENT IS NOW RESTING COMFORTABLY IN BED WILL CONTINUE TO MONITOR.
[2018-10-31] MEDS: VANCOMYCIN 1GM/NS 250 ML 250 ML IV SCH ×2 (03:20→15:45)
[2018-10-31 05:56] LABS: BASOPHILS % 0.4 % (0.0-1.0); EOSINOPHILS # (AUTO) 0.1 (0.0-0.4); EOSINOPHILS % 1.5 % (0.0-6.0); HEMATOCRIT 27.8 % (38.2-49.6); HEMOGLOBIN 8.8 g/dL (14.0-18.0); LYMPHOCYTES # (AUTO) 2.3 (1.0-3.2); LYMPHOCYTES % 32.5 % (18.0-39.1); MEAN CORPUSCULAR HEMOGLOBIN 27.4 pg (28-32); MEAN CORPUSCULAR HGB CONC 31.7 g/dL (31-35); MEAN CORPUSCULAR VOLUME 86.6 fL (81-99); MONOCYTES % 13.5 % (4.4-11.3); NEUTROPHILS # (AUTO) 3.7 (2.1-6.9); NEUTROPHILS % 51.4 % (38.7-80.0); PLATELET COUNT 174 x10e3/uL (140-360); RED BLOOD COUNT 3.21 x10e6/uL (4.3-5.7); RED CELL DISTRIBUTION WIDTH 14.2 % (11.7-14.4)
[2018-10-31 06:30] LABS: ANION GAP 13.3 mmol/L (8-16); BLOOD UREA NITROGEN 7 mg/dL (7-26); BUN/CREATININE RATIO 8 (6-25); CALCIUM 8.3 mg/dL (8.4-10.2); CARBON DIOXIDE 27 mmol/L (22-29); CHLORIDE 103 mmol/L (98-107); CREATININE, SERUM 0.87 mg/dL (0.72-1.25); EST GLOMERULAR FILTRATION RATE > 60 ML/MIN (60-); GLUCOSE 151 mg/dL (74-118); POTASSIUM 4.3 mmol/L (3.5-5.1); SODIUM 139 mmol/L (136-145)
--- NOTE | 2018-10-31 07:25 | NUR ---
PT IN BED RESTING NO DISTRESS NOTED,C/O NAUSEA AND PAIN MEDICATED EARLIER,WILL CONTINUE TO MONITOR
[2018-10-31] MEDS: INSULIN REGULAR, HUMAN 100 UNIT/1 ML 3ML VIAL SQ SCH ×4 (07:30→21:30)
[2018-10-31] MEDS: GABAPENTIN 400 MG CAP PO SCH ×3 (09:45→20:36)
[2018-10-31] MEDS: AMLODIPINE BESYLATE 5 MG TAB PO SCH ×2 (09:45→17:00)
--- NOTE | 2018-10-31 09:45 | NUR ---
MEDICATED FOR PAIN/NAUSEA
[2018-10-31] MEDS: BALSAM PERU/CASTOR OIL 60 GM OINT...G. TP SCH ×2 (16:08→17:00)
[2018-10-31] MEDS: NYSTATIN 15 GM POWDER UD BTL TOP SCH ×2 (16:08→17:00)
--- NOTE | 2018-10-31 17:39 | NUR ---
PTIN BED NO FUTHER C/O NAUSEA,PAIN LEVEL 3.RT FOOT ELEVATED ON PILLOW,
[2018-10-31] MEDS: SODIUM CHLORIDE 0.9% 1000ML 1,000 ML IV SCH ×2 (18:24→19:38)
[2018-10-31] MEDS: ZOLPIDEM TARTRATE 5 MG TAB PO PRN (22:01)
[2018-11-01] VITALS (8 sets, daily range): BP systolic 112–160; BP diastolic 65–87
[2018-11-01] MEDS: MORPHINE SULFATE INJ 4 MG/ML INJ 1ML IV PRN ×4 (00:40→14:50)
[2018-11-01] MEDS: ONDANSETRON HCL INJ 2MG/ML 2ML 2 MG/ML VIAL IV PRN ×4 (00:40→14:50)
[2018-11-01] MEDS: VANCOMYCIN 1GM/NS 250 ML 250 ML IV SCH ×2 (02:44→15:00)
[2018-11-01] MEDS: SODIUM CHLORIDE 0.9% 1000ML 1,000 ML IV SCH ×2 (05:04→17:07)
[2018-11-01] MEDS: INSULIN REGULAR, HUMAN 100 UNIT/1 ML 3ML VIAL SQ SCH ×4 (07:30→21:15)
--- NOTE | 2018-11-01 07:30 | NUR ---
PT IN BED SLEEPING NO S/S DISCOMFORT,BI LATERAL FEET ELEVATED ON PILLOWS
[2018-11-01] MEDS: GABAPENTIN 400 MG CAP PO SCH ×3 (08:52→20:38)
[2018-11-01] MEDS: AMLODIPINE BESYLATE 5 MG TAB PO SCH ×2 (08:52→17:00)
--- NOTE | 2018-11-01 09:25 | NUR ---
C/O RT FOOT PAIN- MEDICATED
[2018-11-01] MEDS: NYSTATIN 15 GM POWDER UD BTL TOP SCH ×2 (13:49→17:05)
[2018-11-01] MEDS: BALSAM PERU/CASTOR OIL 60 GM OINT...G. TP SCH ×2 (13:49→17:05)
--- NOTE | 2018-11-01 14:05 | NUR ---
DR TAVERAS HERE NO NEW ORDERS
--- NOTE | 2018-11-01 17:08 | NUR ---
PT UP IN BED NO FUTHER C/O PAIN,LOWER EXT ELEVATED ON PILLOWS
--- NOTE | 2018-11-01 17:28 | Progress Note ---
DATE: 11/01/2018 Dr. Lugo covering for Dr. Jan Goodwin. SUBJECTIVE: The patient was seen at the bedside, in no apparent distress. He denies any pain. He says his pain medication is working well as he is the 1st day, he waited too long 2 hours for it, but now he is taking it routinely and is helping his pain. OBJECTIVE: The culture on the right foot is positive for MRSA and also little one on the left foot that is pending sensitivities. His white blood count has stayed consistent. He has had surgery on Friday, so it probably could be from inflammatory response. MEDICATIONS: He is currently on vancomycin, pedal pulses are palpable. They are diminished. Capillary filling time is delayed. Intrinsic minus type of foot. Protected threshold is decreased to the forefoot. He does a full-thickness ulcer down to the distally to the right foot that is down to level of bone on the left heel, it is also down to the level of bone. The proximal aspect of the right foot has some retention sutures, so they were intact erythema and edema, localizing consistent with the level of surgical intervention. ASSESSMENT: 1. Right 5th ulcer grade 3. 2. Left heel ulcer grade 3. 3. Diabetes mellitus. 4. Peripheral vascular disease. 5. History of osteomyelitis. PLAN: The dressing was removed today. He was reapplied. He still has some bleeding to the lateral aspect of the right foot, so the dressing will stay intact till tomorrow, stay for 24 hours, the bleeding was minimal, but after tomorrow, the dressing will begin to get change daily. He is to offload the lower extremities. He is going to be on IV antibiotics by Infectious Disease for osteomyelitis. I have discussed treatment with the patient. I have answered all questions and we will continue to follow. He is pending transfer into [facility]. NICK Danielle/VINICIUS /[id number]
[2018-11-01] MEDS: ZOLPIDEM TARTRATE 5 MG TAB PO PRN (20:38)
[2018-11-02] VITALS (7 sets, daily range): BP systolic 117–163; BP diastolic 58–71
--- NOTE | 2018-11-02 | NUR ---
NOTIFIED DR HAGAN ABOUT HIGH VANC TROUGH. NEW ORDER RECEIVED
[2018-11-02] MEDS: MORPHINE SULFATE INJ 4 MG/ML INJ 1ML IV PRN ×3 (00:06→16:36)
[2018-11-02] MEDS: ONDANSETRON HCL INJ 2MG/ML 2ML 2 MG/ML VIAL IV PRN ×3 (00:06→16:36)
[2018-11-02] MEDS: SODIUM CHLORIDE 0.9% 1000ML 1,000 ML IV SCH (03:25)
--- NOTE | 2018-11-02 07:00 | NUR ---
received am report from RN, morning rounds done. pt is alert and resting in bed, no s/s of distress. no complaints at this time. pt has on bilateral heel protectors. call light within reach, instructed to call for help.
[2018-11-02] MEDS: GABAPENTIN 400 MG CAP PO SCH ×3 (08:43→21:00)
[2018-11-02] MEDS: AMLODIPINE BESYLATE 5 MG TAB PO SCH ×2 (08:43→16:20)
[2018-11-02] MEDS: INSULIN REGULAR, HUMAN 100 UNIT/1 ML 3ML VIAL SQ SCH ×4 (08:43→21:00)
[2018-11-02 08:56] LABS: BLOOD UREA NITROGEN 6 mg/dL (7-26); BUN/CREATININE RATIO 7 (6-25); CALCIUM 8.4 mg/dL (8.4-10.2); CHLORIDE 105 mmol/L (98-107); CREATININE, SERUM 0.88 mg/dL (0.72-1.25); EST GLOMERULAR FILTRATION RATE > 60 ML/MIN (60-); GLUCOSE 159 mg/dL (74-118); POTASSIUM 3.8 mmol/L (3.5-5.1); SODIUM 138 mmol/L (136-145)
[2018-11-02] MEDS: BALSAM PERU/CASTOR OIL 60 GM OINT...G. TP SCH ×2 (09:00→16:36)
[2018-11-02 09:09] LABS: ANION GAP 19.8 mmol/L (8-16); CARBON DIOXIDE 17 mmol/L (22-29)
[2018-11-02 09:18] LABS: BASOPHILS % 0.4 % (0.0-1.0); EOSINOPHILS # (AUTO) 0.1 (0.0-0.4); HEMATOCRIT 28.8 % (38.2-49.6); HEMOGLOBIN 9.1 g/dL (14.0-18.0); LYMPHOCYTES # (AUTO) 1.8 (1.0-3.2); LYMPHOCYTES % 36.3 % (18.0-39.1); MEAN CORPUSCULAR HEMOGLOBIN 27.7 pg (28-32); MEAN CORPUSCULAR HGB CONC 31.6 g/dL (31-35); MEAN CORPUSCULAR VOLUME 87.5 fL (81-99); MONOCYTES # (AUTO) 0.8 (0.2-0.8); MONOCYTES % 15.8 % (4.4-11.3); NEUTROPHILS # (AUTO) 2.2 (2.1-6.9); NEUTROPHILS % 43.7 % (38.7-80.0); PLATELET COUNT 182 x10e3/uL (140-360); RED BLOOD COUNT 3.29 x10e6/uL (4.3-5.7); RED CELL DISTRIBUTION WIDTH 14.5 % (11.7-14.4)
--- NOTE | 2018-11-02 10:14 | Progress Note ---
DATE: SUBJECTIVE: The patient is a 78-year-old male, who comes in with acute osteomyelitis of the right foot, status post amputation of fifth toe. The patient is currently feeling okay, but does have marked amount of fatigue and also cannot get out of bed without assistance. The patient has no chest pain and no shortness of breath. OBJECTIVE: VITAL SIGNS: Temperature is 99.1, that is the T-max, pulse of 84, respirations of 20, blood pressure is 161/71. GENERAL: The patient appears pale, fatigued, and chronically sick. HEENT: Normocephalic, atraumatic. CVS: S1, S2, normal rate and rhythm. ABDOMEN: Nondistended, nontender, protuberant. EXTREMITIES: Right lower extremity in a bandage and left lower extremity is in bandage. LABORATORY VALUES: White count is 7.2 from 10/31, hemoglobin of 8.8, hematocrit of 27.8. Microbiology; wound culture grew MRSA Staph aureus and also MRSA with Kalie in the urine culture. ASSESSMENT: 1. Cellulitis of the right toe. 2. Fifth toe with osteomyelitis, status post amputation. 3. Left heel ulcers. 4. Diabetes mellitus, uncontrolled. 5. Peripheral vascular disease. 6. Hypertension and hyperlipidemia. PLAN: The patient will be removing the dressing today. We will go ahead and do a CBC and BMP today to check for stability of the hemoglobin and anemia. The patient has anemia. We will go ahead and check CBC. Further recommendations per clinical course. We will continue to monitor the patient. Disposition is plan to send the patient to an LTAC for long-term IV antibiotics. MD DENIS Tesfaye/MODL /[id number]
[2018-11-02] MEDS: NYSTATIN 15 GM POWDER UD BTL TOP SCH ×2 (14:39→16:36)
[2018-11-02] MEDS: VANCOMYCIN 1GM/NS 250 ML 250 ML IV SCH (14:39)
--- NOTE | 2018-11-02 16:25 | NUR ---
Nutrition LOS Note RD Recommendation(s) for Physician / Nutrition Prescription: continue with diet as prescribed Plan of Care: Patient has been screened and assessed for nutrition risk. At this time, the patient does not pose any nutrition risk. No further nutrition intervention is warranted at this time. Will re-evaluate if consulted by medical staff. Nutrition reason for involvement: LOS Primary Dx: acute osteomyelitis of the right foot, status post amputation of fifth toe. PMH: uncontrolled diabetes mellitus, hyperlipidemia, PAD, hypertension, chronic pain syndrome, hypothyroidism, hypertension, COPD, iron deficiency, insomnia, depression Ht: 78in Wt: 271lb BMI: 36.8kg/m2 IBW: 178lb +/- 10% RD Assessment: (11/02) 78yo M, who was admitted for L foot osteomyelitis. S/p amputation of R fifth toe on 10/30/2018. Visited pt in the room. Pt reported good appetite with 75-100% recorded meal intake. No complains of nausea or vomiting. Pt reported of being constipated for 4 days; notified RN. Pt denied any chewing or swallowing difficulty. Pt reported of some succession in weight loss in the last few months following a low carb diet. Current diet is adequate and appropriate. Current diet: ADA 1800 Malnutrition Evaluation (11/02/2018) The patient does not meet criteria for a specified degree of malnutrition at this time. Will re-evaluate at follow-up as appropriate. Diet Education Needs Assessment: Diet education not indicated. Pt stated that he knows what to eat and follow a diabetic diet at home. Nutrition Care Level: Low Yamileth Armenta, MS, RD, LD
--- NOTE | 2018-11-02 19:15 | NUR ---
patient received awake, alert, lying quietly in bed. vss. tpn/ivf continue to infuse without difficulty. pm assessment complete. patient instructed to call for assistance when needed. Addendum: 11/02/18 at 2009 by Samantha Pennington RN error---wrong patient.
--- NOTE | 2018-11-02 19:15 | NUR ---
patient received awake, alert, sitting up in bed. vss. ivf/tpn infusing without difficulty. pm assessment complete. patient instructed to call for assistance when needed. Addendum: 11/02/18 at 2004 by Samantha Pennington RN error---wrong patient.
--- NOTE | 2018-11-02 19:15 | NUR ---
patient received awake, alert, lying quietly in bed. vss. no c/o pain noted at this time. pm assessment complete. patient instructed to call for assistance when needed.
[2018-11-02] MEDS: ZOLPIDEM TARTRATE 5 MG TAB PO PRN (21:37)
[2018-11-03] VITALS (7 sets, daily range): BP systolic 130–152; BP diastolic 58–70
--- NOTE | 2018-11-03 01:52 | Progress Note ---
DATE: The patient is 4 days status post amputation of the 5th digit metatarsal of the right foot. He is overall following normal course of healing. The Wound Care has initiated dressing changes with packing twice daily. The wound is currently packed and wrapped and no exudate or drainage is noted. The remaining digits are perfusing well. The patient states he is having no pain. He is awaiting discharge to [facility]. NICK Carmen/VINICIUS /[id number]
[2018-11-03 05:43] LABS: BASOPHILS % 0.5 % (0.0-1.0); EOSINOPHILS # (AUTO) 0.1 (0.0-0.4); EOSINOPHILS % 1.6 % (0.0-6.0); LYMPHOCYTES # (AUTO) 2.3 (1.0-3.2); LYMPHOCYTES % 40.3 % (18.0-39.1); MEAN CORPUSCULAR HEMOGLOBIN 27.3 pg (28-32); MEAN CORPUSCULAR HGB CONC 32.1 g/dL (31-35); MEAN CORPUSCULAR VOLUME 84.8 fL (81-99); MONOCYTES # (AUTO) 0.9 (0.2-0.8); MONOCYTES % 16.2 % (4.4-11.3); NEUTROPHILS # (AUTO) 2.3 (2.1-6.9); PLATELET COUNT 183 x10e3/uL (140-360); RED CELL DISTRIBUTION WIDTH 14.6 % (11.7-14.4)
[2018-11-03] MEDS: INSULIN REGULAR, HUMAN 100 UNIT/1 ML 3ML VIAL SQ SCH ×4 (07:30→21:00)
[2018-11-03] MEDS: AMLODIPINE BESYLATE 5 MG TAB PO SCH ×2 (08:40→16:58)
[2018-11-03] MEDS: GABAPENTIN 400 MG CAP PO SCH ×3 (08:40→21:00)
--- NOTE | 2018-11-03 08:48 | Progress Note ---
DATE: SUBJECTIVE: The patient is here for diabetic foot ulcer, status post amputation and also for osteomyelitis. The patient is currently asymptomatic, sleeping comfortably, arousable, and goes right back to sleep. OBJECTIVE: VITAL SIGNS: Temperature is 97.1, pulse of 80, respirations of 18, blood pressure is 147/68, and pulse oximetry of 92% on room air. HEENT: Normocephalic and atraumatic. Pupils are reactive to light and accommodation. CVS: S1 and S2, regular. ABDOMEN: Nontender and nondistended, protuberant. EXTREMITIES: Bilateral extremities in bandages. LABORATORY VALUES: From yesterday, hemoglobin was 9.1 and hematocrit of 28.2. Today's is 9.0 and 28.8. Chemistries; sodium 138, potassium 3.8, BUN of 6, creatinine 0.88, and glucose is 159. Toxicology vancomycin trough is 18.7 on 11/01/2018. Coags are normal. ASSESSMENT AND PLAN: 1. The patient is 4 days status post amputation of 5th digit. Wound care has been initiated. The patient will need an LTAC bed. Evaluation has been started for cellulitis of the toe, we will continue on IV antibiotics and osteomyelitis, status post amputation. Continue on IV antibiotics. Dr. Zacarias is on case. 2. Left heel ulcer, wound Care to be managing that. 3. Diabetes mellitus, uncontrolled. Continue with insulin sliding scale. 4. Peripheral vascular disease. Continue to monitor the patient also with statins. 5. Hypertension and hyperlipidemia. Continue same plan. 6. LTAC evaluation. 7. Disposition discharge to LTAC bed if available. MD DENIS Tesfaye/VINICIUS /[id number]
[2018-11-03] MEDS: BALSAM PERU/CASTOR OIL 60 GM OINT...G. TP SCH ×2 (09:00→16:58)
[2018-11-03] MEDS: NYSTATIN 15 GM POWDER UD BTL TOP SCH ×2 (09:00→16:58)
[2018-11-03] MEDS: MORPHINE SULFATE INJ 4 MG/ML INJ 1ML IV PRN ×2 (12:20→22:44)
[2018-11-03] MEDS: DIPHENHYDRAMINE HCL 25 MG CAP PO PRN ×2 (12:20→22:44)
--- NOTE | 2018-11-03 14:52 | NUR ---
WOUND CARE DRESSING CHANGE: DRESSING CHANGED TO RIGHT 5TH MET HEAD AMPUTATION SITE PER DR. SIMMS'S DRESSING CHANGE ORDERS. PATIENT IS 4 DAYS S/P AMPUTATION OF THE 5TH DIGIT METATARSAL OF THE RIGHT FOOT. THE RIGHT 5TH MET HEAD AMPUTATION SITE INCISION MEASURES 5.3X0.1CM, WITH SUTURES INTACT, CLEAN, DRY. THE PATIENT HAS A RIGHT LATERAL FOOT WOUND S/P DEBRIDEMENT MEASURING 0.5X0.8X2.2CM, WITH A SINUS OF 3CM AT 10 O'CLOCK; DRESSING AND PACKING CHANGED PER ORDERS; PATIENT TOLERATED DRESSING CHANGE WELL; DRESSING CLEAN, DRY, INTACT. Addendum: 11/03/18 at 1500 by Ebony Fierro RN Amended: Links added.
[2018-11-03] MEDS: VANCOMYCIN 1GM/NS 250 ML 250 ML IV SCH (15:30)
--- NOTE | 2018-11-03 17:30 | NUR ---
patient refusing to turn on side or alleviate pressure on bottom with pillows, states he doesn't want to be bothered with it.
[2018-11-03] MEDS: ONDANSETRON HCL INJ 2MG/ML 2ML 2 MG/ML VIAL IV PRN ×2 (18:13→22:44)
--- NOTE | 2018-11-03 18:40 | NUR ---
report given to shift foreman nurse, patient aware of change. call chance within reach and bed in lowest position.
--- NOTE | 2018-11-03 19:00 | NUR ---
patient received awake, alert, lying quietly in bed. no c/o pain noted. pm assessment complete. patient instructed to call for assistance when needed.
[2018-11-03] MEDS: ZOLPIDEM TARTRATE 5 MG TAB PO PRN (21:00)
--- NOTE | 2018-11-03 22:44 | NUR ---
patient medicated with morphine 4 mg and zofran 4 mg ivp for c/o bilateral feet pain 10/07 and benadryl 25 mg po for c/o itching at this time.
[2018-11-04] VITALS (8 sets, daily range): BP systolic 126–150; BP diastolic 58–72
[2018-11-04] MEDS: ONDANSETRON HCL INJ 2MG/ML 2ML 2 MG/ML VIAL IV PRN (05:00)
[2018-11-04] MEDS: MORPHINE SULFATE INJ 4 MG/ML INJ 1ML IV PRN (05:00)
--- NOTE | 2018-11-04 05:00 | NUR ---
patient medicated with morphine 4 mg and zofran 4 mg ivp for c/o bilateral feet pain 7/10 at this time.
--- NOTE | 2018-11-04 07:30 | NUR ---
pt in bed sleeping ,no s/s discomfort,rt foot elevated on pillow
[2018-11-04] MEDS: GABAPENTIN 400 MG CAP PO SCH ×3 (08:35→21:00)
[2018-11-04] MEDS: AMLODIPINE BESYLATE 5 MG TAB PO SCH ×2 (08:35→17:00)
[2018-11-04] MEDS: INSULIN REGULAR, HUMAN 100 UNIT/1 ML 3ML VIAL SQ SCH ×4 (08:38→21:00)
--- NOTE | 2018-11-04 10:34 | Progress Note ---
DATE: SUBJECTIVE: This is a 78-year-old male comes in with osteomyelitis of the right foot. The patient is status post amputation and skin incision and drainage. Wound Care on consult and also the patient had debridement. The patient is diabetic and also history of COPD. Currently, no chest pain. No shortness of breath. The patient is asymptomatic. Pain is controlled with morphine. OBJECTIVE: HEENT: Normocephalic, atraumatic. GENERAL: Morbidly obese. CVS: S1, S2, normal. Regular rate and rhythm. ABDOMEN: Nontender, nondistended. EXTREMITIES: Bilateral lower extremities in bandage. The patient is status post amputation of the right fifth toe. LABORATORY VALUES: White count is 5.6, hemoglobin of 9.0, and hematocrit of 28. Glucoses have been running in the 200s. Microbiology, Staph aureus MRSA and Kalie albicans in the urine culture. ASSESSMENT: 1. Osteomyelitis of the fifth digit, status post amputation. The patient is currently on IV antibiotics, continue with. Dr. Zacarias is on the case, possible discharge to LTAC if accepted. 2. Left heel ulcer. Continue with antibiotics. 3. Diabetes mellitus. Insulin sliding scale. 4. Peripheral vascular disease. Continue on statins and anticoagulation. 5. Hypertension and hyperlipidemia. Continue to monitor. DISPOSITION: Discharged to LTAC when bed available. MD DENIS Tesfaye/BROOKL /[id number]
--- NOTE | 2018-11-04 12:29 | NUR ---
LTAC DENIED BY [employer] PEER TO PEER TIME HAS LAPSED SPOKE WITH PRINCE ERAZO WHO IS ASKING PHYSICIAN TO SIGN EXPEDITED APPEAL FOR AUTH IF STILL DENIED WILL GET ORDER FOR SNF
[2018-11-04] MEDS: BALSAM PERU/CASTOR OIL 60 GM OINT...G. TP SCH (14:21)
[2018-11-04] MEDS: VANCOMYCIN 1GM/NS 250 ML 250 ML IV SCH (16:03)
--- NOTE | 2018-11-04 20:21 | Progress Note ---
DATE: SUBJECTIVE: The patient is seen today, postop amputation right 5th metatarsal and digit. The wound continues to improve. The patient is feeling better. The wound care has been packing the plantar wound open with Nu Gauze and rewrapping daily. The patient is tolerating well with minimal drainage on the bandage today. He is awaiting discharge to [facility], pending approval from insurance. He needs continued IV antibiotics, continued local wound care with limb-threatening infection and issues. NICK Carmen/VINICIUS /[phone]
[2018-11-05] VITALS (8 sets, daily range): BP systolic 115–158; BP diastolic 57–73
--- NOTE | 2018-11-05 07:30 | NUR ---
PT UP IN BED NO DISTRESS NTOED.NO C/O PAIN ,LEGS ELEVATED ON PILLOW
[2018-11-05] MEDS: INSULIN REGULAR, HUMAN 100 UNIT/1 ML 3ML VIAL SQ SCH ×4 (08:00→21:10)
[2018-11-05] MEDS: AMLODIPINE BESYLATE 5 MG TAB PO SCH ×2 (09:00→16:39)
[2018-11-05] MEDS: GABAPENTIN 400 MG CAP PO SCH ×3 (09:00→20:30)
[2018-11-05] MEDS: BALSAM PERU/CASTOR OIL 60 GM OINT...G. TP SCH ×3 (10:27→17:00)
--- NOTE | 2018-11-05 11:36 | NUR ---
FAXED EXPEDITED APPEAL FOR LTAC TO DR SIMMS'S OFFICE (ATTENTION KYE)
--- NOTE | 2018-11-05 12:30 | NUR ---
PT UP IN BED DENIES PAIN ,DRSG TO RT FOOT CHANGED,
[2018-11-05] MEDS: VANCOMYCIN HCL 1.25 GM in SODIUM CHLORIDE 0.9% 250ML 250 ML IV SCH (15:00)
[2018-11-05] MEDS: INSULIN GLARGINE 100 UNITS/ML VIAL SQ SCH (16:40)
[2018-11-05] MEDS: MORPHINE SULFATE INJ 4 MG/ML INJ 1ML IV PRN ×2 (16:45→21:10)
[2018-11-05] MEDS: ONDANSETRON HCL INJ 2MG/ML 2ML 2 MG/ML VIAL IV PRN ×2 (16:47→21:10)
--- NOTE | 2018-11-05 17:46 | NUR ---
PT IN BED SLEEPING ,FEET ELEVATED ON PILLOW
--- NOTE | 2018-11-05 17:48 | Progress Note ---
DATE: SUBJECTIVE: The patient is a 78-year-old male with status post incision, drainage and also amputation of the fifth digit for osteomyelitis. The patient is currently asymptomatic. Blood pressures have been normal. Sugars have been running in the low, but high. MEDICATIONS: He is on: 1. Amlodipine. 2. Diphenhydramine. 3. Gabapentin. 4. Insulin glargine. 5. Morphine sulfate. 6. Vancomycin. 7. Zolpidem. OBJECTIVE: VITAL SIGNS: Temperature is 97.8, pulse of 72, respirations 16, blood pressure is 125/58, and pulse oximetry of 96%. HEENT: Normocephalic and atraumatic. Pupils are reactive to light and accommodation. CVS: S1 and S2 normal. Regular rate and rhythm. Ejection systolic murmur. ABDOMEN: Nontender and nondistended. EXTREMITIES: No clubbing. No cyanosis. Positive for edema. The patient's left foot is in bandage and status post amputation in the left foot with heel ulcer too. LABORATORY VALUES: Hemoglobin is stable at 9.0 and hematocrit of 28. Blood sugars have been trending high. ASSESSMENT AND PLAN: 1. Osteomyelitis of the fifth digit, status post amputation. The patient is currently on IV antibiotics. Consult with Dr. Zacarias, who is on the case. Consider LTAC. The patient will benefit from LTAC. 2. Left heel ulcer. Continue with antibiotic. 3. Diabetes mellitus. Continue sliding scale. 4. Peripheral vascular disease. Continue with anticoagulation. 5. Hypertension and hyperlipidemia. Continue CV medication. Further recommendation per clinical course. Awaiting for transfer to LTAC and will get a transfer when bed available. MD DENIS Tesfaye/MODL /[phone]
--- NOTE | 2018-11-05 19:15 | NUR ---
BS rounds completed with morning nurse. Pt alert and oriented to name. Lying in bed HOB 45 degrees. Denies pain at this time. Call chance within reach. Will continue to monitor.
[2018-11-05] MEDS: DIPHENHYDRAMINE HCL 25 MG CAP PO PRN (20:30)
[2018-11-05] MEDS: ZOLPIDEM TARTRATE 5 MG TAB PO PRN (21:10)
[2018-11-06] VITALS (8 sets, daily range): BP systolic 118–147; BP diastolic 59–73
[2018-11-06] MEDS: MORPHINE SULFATE INJ 4 MG/ML INJ 1ML IV PRN ×3 (00:45→21:00)
[2018-11-06 05:56] LABS: BASOPHILS % 0.5 % (0.0-1.0); EOSINOPHILS # (AUTO) 0.1 (0.0-0.4); EOSINOPHILS % 1.8 % (0.0-6.0); HEMATOCRIT 30.3 % (38.2-49.6); HEMOGLOBIN 9.7 g/dL (14.0-18.0); LYMPHOCYTES # (AUTO) 3.2 (1.0-3.2); LYMPHOCYTES % 48.6 % (18.0-39.1); MEAN CORPUSCULAR HEMOGLOBIN 27.5 pg (28-32); MEAN CORPUSCULAR VOLUME 85.8 fL (81-99); MONOCYTES % 15.2 % (4.4-11.3); NEUTROPHILS # (AUTO) 2.1 (2.1-6.9); NEUTROPHILS % 32.4 % (38.7-80.0); PLATELET COUNT 186 x10e3/uL (140-360); RED BLOOD COUNT 3.53 x10e6/uL (4.3-5.7); RED CELL DISTRIBUTION WIDTH 14.9 % (11.7-14.4)
[2018-11-06 06:14] LABS: ANION GAP 15.2 mmol/L (8-16); BLOOD UREA NITROGEN 9 mg/dL (7-26); BUN/CREATININE RATIO 8 (6-25); CALCIUM 8.7 mg/dL (8.4-10.2); CARBON DIOXIDE 28 mmol/L (22-29); CHLORIDE 100 mmol/L (98-107); CREATININE, SERUM 1.06 mg/dL (0.72-1.25); EST GLOMERULAR FILTRATION RATE > 60 ML/MIN (60-); GLUCOSE 185 mg/dL (74-118); POTASSIUM 3.2 mmol/L (3.5-5.1); SODIUM 140 mmol/L (136-145)
--- NOTE | 2018-11-06 07:20 | NUR ---
PATIENT IS ALERT AND IN STABLE CONDITION WITH NO S/S OF RESPIRATORY DISTRESS. NO PAIN VOICED. DRESSING TO BILATERAL LOWER EXTREMITIES ARE DRY AND INTACT; HEEL PROTECTORS APPLIED. BED ALARM ON. CALL LIGHT IS WITHIN REACH, PATIENT INSTRUCTED TO CALL FOR ASSISTANCE NEEDED.
[2018-11-06] MEDS: INSULIN REGULAR, HUMAN 100 UNIT/1 ML 3ML VIAL SQ SCH ×4 (07:30→21:00)
--- NOTE | 2018-11-06 09:05 | Progress Note ---
DATE: SUBJECTIVE: The patient is a 78-year-old male, status post incision, drainage and amputation of the 5th toe for osteomyelitis. The patient is awaiting an LTAC transfer. Medicine list reviewed. The patient is complaining of some pain today in the right lower extremity. Pain control noted and also the patient has insomnia, which he takes Ambien, but did not sleep last night. OBJECTIVE: VITAL SIGNS: Temperature is 96.4, pulse of 75, respirations of 18, blood pressure is 127/65, and pulse oximetry of 99%. HEENT: Normocephalic and atraumatic, obese. CVS: S1 and S2 distant. Regular rate and rhythm. Ejection systolic murmur. ABDOMEN: Nontender and nondistended. EXTREMITIES: Bilateral lower extremities in bandage. The patient's pulses are decreased. LABORATORY VALUES: Hemoglobin of 9.7, hematocrit of 30.3, and white count is at 6.60. Chemistries; potassium is 3.2 today, otherwise normal. BUN of 9 and creatinine of 1.06, glucose of 185. ASSESSMENT AND PLAN: 1. Osteomyelitis of the 5th digit, status post amputation. Continue with antibiotics. 2. Left heel ulcers. Continue with antibiotic. 3. Diabetes mellitus. Sliding scale and Lantus 30 units twice a day has been added yesterday. 4. Peripheral vascular disease. Continue with anticoagulation. 5. Hypertension and hyperlipidemia. Continue on CV medication. 6. Further recommendation per clinical course. Again, we are waiting for LTAC transfer and acceptance by insurance. We will keep the patient in the hospital and also continue with physical therapy. MD DENIS Tesfaye/MODL /[id number]
[2018-11-06] MEDS: INSULIN GLARGINE 100 UNITS/ML VIAL SQ SCH ×2 (09:15→17:11)
[2018-11-06] MEDS: GABAPENTIN 400 MG CAP PO SCH ×2 (09:15→15:01)
[2018-11-06] MEDS: BALSAM PERU/CASTOR OIL 60 GM OINT...G. TP SCH ×2 (09:16→16:44)
[2018-11-06] MEDS: AMLODIPINE BESYLATE 5 MG TAB PO SCH ×2 (09:16→17:11)
--- NOTE | 2018-11-06 09:35 | NUR ---
wound care completed to bilateral lower extremities- patient tolerated dressing change well.
--- NOTE | 2018-11-06 10:22 | NUR ---
EDUCATED ABOUT IMM, SIGNED, FILED IN CHART, WITH COPY LEFT WITH FAMILY AT BEDSIDE.
[2018-11-06] MEDS: ONDANSETRON HCL INJ 2MG/ML 2ML 2 MG/ML VIAL IV PRN ×2 (13:03→21:00)
[2018-11-06] MEDS: VANCOMYCIN HCL 1.25 GM in SODIUM CHLORIDE 0.9% 250ML 250 ML IV SCH (15:01)
--- NOTE | 2018-11-06 16:00 | NUR ---
Here to do dressing changes as per order. The nursing team has already changed the dressing today.
--- NOTE | 2018-11-06 16:02 | Progress Note ---
DATE: The patient is seen today, complaining of mild increase in pain, bilateral lower extremities. He is continuing with local wound care, IV antibiotics, awaiting discharge to LTAC. He has multiple comorbidities at this point. He has not been ambulating or spending time in a chair. I feel like he needs to start with increased mobility and this is not contraindicated with regard to the procedures. He is on his feet. We will apply postop shoes both left and right feet and consult Physical Therapy for increased ambulation to evaluate and recommend a treatment plan. Apparently, he is not transferring to LTAC right away. NICK Carmen/VINICIUS /[id number]
--- NOTE | 2018-11-06 16:44 | NUR ---
PER PRINCE/PETERSON BRASWELL, WE SHOULD HEAR FROM THE [facility] ON Friday11/08/18 REGARDING THE APPEAL. SHE STATES IF AUTHORIZATION IS GIVEN, WE WILL BE ABLE TO TRANSFER PATIENT ON FRIDAY.
[2018-11-06] MEDS ORDERED: POTASSIUM CHLORIDE 20 MEQ TAB CR PO ONE (18:00)
--- NOTE | 2018-11-06 19:12 | NUR ---
PATIENT IS IN STABLE CONDITION WITH NO S/S OF RESPIRATORY DISTRESS. NO PAIN VOICED. DRESSINGS TO BILATERAL LOWER EXTREMITIES ARE DRY AND INTACT. CALL LIGHT IS WITHIN REACH, PATIENT INSTRUCTED TO CALL FOR ASSISTANCE NEEDED. BEDSIDE REPORT GIVEN TO ONCOMING NURSE.
--- NOTE | 2018-11-06 19:19 | NUR ---
PT IS RESTING IN BED. RESPIRATION IS EVEN AND UNLABORED, NO DISTRESS NOTED. BED IN THE LOWEST POSITION, LOCKED, AND CALL LIGHT WITHIN REACH. WILL CONTINUE TO MONITOR.
[2018-11-06] MEDS: ZOLPIDEM TARTRATE 5 MG TAB PO PRN (22:12)
[2018-11-07 00:10] VITALS: BP 155/65
[2018-11-07] MEDS: ONDANSETRON HCL INJ 2MG/ML 2ML 2 MG/ML VIAL IV PRN ×2 (00:33→07:46)
[2018-11-07] MEDS: MORPHINE SULFATE INJ 4 MG/ML INJ 1ML IV PRN ×2 (00:33→07:46)
[2018-11-07 04:48] VITALS: BP 144/68
--- NOTE | 2018-11-07 07:02 | NUR ---
Walking rounds done and report received. Patient is awake, alert and able to make needs known. Isolation maintained. BLE elevated and dressings intact. POC discussed. Patient instructed to call for assistance as needed and verbalized understanding. Bed in lowest position, locked and call chance within reach.
[2018-11-07] MEDS: INSULIN REGULAR, HUMAN 100 UNIT/1 ML 3ML VIAL SQ SCH ×3 (07:30→16:30)
[2018-11-07 07:47] VITALS: BP 153/65
--- NOTE | 2018-11-07 07:56 | Progress Note ---
DATE: SUBJECTIVE: The patient is a 78-year-old male status post amputation of 5th toe, does complaint of pain in the right lower extremity. No other complaints. Slept well last night. OBJECTIVE: VITAL SIGNS: Afebrile. Pulse of 75, respirations of 18, blood pressure is 144/68, and pulse oximetry 99%. HEENT: Normocephalic and atraumatic. Pupils are reactive to light and accommodation. CVS: S1 and S2 normal. Regular rate and rhythm. ABDOMEN: Nontender and nondistended. EXTREMITIES: Right lower extremity is in bandage. LABORATORY VALUES: Yesterday's hemoglobin is 9.7 and hematocrit 30.7. Blood glucoses are running in the 250s. ASSESSMENT: 1. Osteomyelitis of the 5th digit, status post amputation. 2. Left heel ulcer. 3. Diabetes mellitus, uncontrolled. 4. Peripheral vascular disease. 5. Hypertension. 6. Debility. PLAN: The patient needs LTAC, this is pending. We will increase Lantus to 35 units twice a day and continue to monitor the patient. Further care in LTAC depending on acceptance by insurance. Further recommendation per clinical course, and we will continue with physical therapy. MD DENIS Tesfaye/VINICIUS /[id number]
[2018-11-07 08:00] VITALS: BP 153/65
[2018-11-07] MEDS: AMLODIPINE BESYLATE 5 MG TAB PO SCH ×2 (08:23→16:54)
[2018-11-07] MEDS: BALSAM PERU/CASTOR OIL 60 GM OINT...G. TP SCH ×2 (08:24→16:55)
[2018-11-07] MEDS: INSULIN GLARGINE 100 UNITS/ML VIAL SQ SCH ×2 (08:43→16:55)
[2018-11-07 11:47] VITALS: BP 142/64
--- NOTE | 2018-11-07 12:55 | NUR ---
CALL FROM ESPERANZA AT [facility] STATING THEY REC'D AUTH FOR PT TODAY CALLED DR MAHONEY AND REC'D DISCHARGE ORDERS LTAC DONE AND PLACED IN PACKET AT DESK PT GOING TO ROOM 205 AT [facility]
--- NOTE | 2018-11-07 14:00 | NUR ---
Attempted to call report to ALEXIS Murcia at [place] and nurse is unavailable.
--- NOTE | 2018-11-07 14:45 | NUR ---
Second call to RN to give report. Per shipping clerk/admin will have nurse call back when available.
[2018-11-07] MEDS: VANCOMYCIN HCL 1.25 GM in SODIUM CHLORIDE 0.9% 250ML 250 ML IV SCH (15:00)
[2018-11-07] MEDS ORDERED: POTASSIUM CHLORIDE 20 MEQ TAB CR PO NR (16:30)
--- NOTE | 2018-11-07 16:33 | Progress Note ---
DATE: SUBJECTIVE: Mr. Odonnell is lying in bed comfortably, and no complaints. PHYSICAL EXAMINATION: GENERAL: He is currently alert and oriented, does not seem to be in acute distress. VITAL SIGNS: Stable. Afebrile. HEENT: Not icteric. NECK: Supple. No JVD. No lymphadenopathy. No thyromegaly. CHEST: Clear bilateral. HEART: S1 and S2. No S3, murmur. ABDOMEN: Soft. Bowel sounds present. No tenderness. EXTREMITIES: No edema. The foot looks good. IMPRESSION: 1. Osteomyelitis, status post amputation of the digit, on the right. 2. Left heel ulcer. 3. Diabetes mellitus. 4. Neuropathy. 5. Obesity. 6. Hypertension. 7. Debility. 8. Methicillin-resistant Staphylococcus aureus infection of both wounds. 9. Anemia of chronic disease. PLAN: Plan is to continue with vancomycin as ordered. Follow trough. Plan at least of 3 weeks or so until the wounds are healed. Neuropathy, discussed with the patient. Discussed with medical team. MD GHISLAINE Alan/VINICIUS /[id number]
--- NOTE | 2018-11-07 17:00 | NUR ---
Ambulance called and report given to ALEXIS Murcia
--- NOTE | 2018-11-07 18:45 | NUR ---
Received bedside report from the day shift RN. The patient is laying on the bed, not in distress. The patient is to be transferred to [facility] for continue wound care and antibiotics. Bed height low, call light within reach, wheels locked, and side rails up x2.
--- NOTE | 2018-11-07 19:05 | NUR ---
Walking rounds done. call chance within reach.
[2018-11-07 19:30] VITALS: BP 142/64
== END 2018-11-07 19:57 | DRG 617 ==
LOC: ER 14:24 → ERHOLD 15:38 → MED/SURG3 16:43
PROVIDERS: ADMIT Family Medicine; ATTEND Family Medicine
PROC: 0JBR0ZZ Excision of Left Foot Subcutaneous Tissue and Fascia, Open Approach (ICD-10-PCS; 2018-10-30)
PROC: 0Y6M0ZF Detachment at Right Foot, Partial 5th Ray, Open Approach (ICD-10-PCS; principal; 2018-10-30 12:00)
DX: E11.69 Type 2 diabetes mellitus with other specified complication (principal); M86.171 Other acute osteomyelitis, right ankle and foot; L03.115 Cellulitis of right lower limb; L97.516 Non-pressure chronic ulcer of other part of right foot with bone involvement without evidence of necrosis; L97.528 Non-pressure chronic ulcer of other part of left foot with other specified severity; E11.51 Type 2 diabetes mellitus with diabetic peripheral angiopathy without gangrene; E11.40 Type 2 diabetes mellitus with diabetic neuropathy, unspecified; E11.621 Type 2 diabetes mellitus with foot ulcer; B95.62 Methicillin resistant Staphylococcus aureus infection as the cause of diseases classified elsewhere; E78.5 Hyperlipidemia, unspecified; I10 Essential (primary) hypertension; E11.65 Type 2 diabetes mellitus with hyperglycemia; G89.4 Chronic pain syndrome; I25.10 Atherosclerotic heart disease of native coronary artery without angina pectoris; F32.9 Major depressive disorder, single episode, unspecified; G47.00 Insomnia, unspecified; D63.8 Anemia in other chronic diseases classified elsewhere; B35.6 Tinea cruris; R53.81 Other malaise; M77.52 Other enthesopathy of left foot and ankle; K59.00 Constipation, unspecified; L89.620 Pressure ulcer of left heel, unstageable; E66.01 Morbid (severe) obesity due to excess calories; Z68.37 Body mass index [BMI] 37.0-37.9, adult; Z95.810 Presence of automatic (implantable) cardiac defibrillator; Z79.4 Long term (current) use of insulin; Z79.82 Long term (current) use of aspirin; Z88.0 Allergy status to penicillin
CPT/HCPCS: 36415; 71045; 76000; 78315; 80048; 80053; 80202; 81001; 82550; 82553; 82948; 83605; 83735; 83880; 84100; 84484; 85025; 85610; 85651; 85730; 87040; 87071; 87075; 87086; 87186; 87205; 88304; 88305; 88311; 93005; 93925; 93971; 97139; 99285; A9503; J1815; J1956; J2270; J2405; J3010; J3370; J7030; J7050; Q4100; Q9967

== ENCOUNTER 2018-12-29 15:48 | Emergency (ER) | payer MEDICARE ==
[~2018-12-29] VITALS: Ht 182.9 cm; Wt 125.6 kg
[2018-12-29] MEDS ORDERED: SODIUM CHLORIDE 0.9% 1000ML 1,000 ML IV STA (15:52)
--- NOTE | 2018-12-29 16:34 | Diagnostic Imaging Report ---
EXAMINATION: CHEST SINGLE (PORTABLE) INDICATION: Hypotension COMPARISON: Chest radiograph of 10/27/2018 FINDINGS: LINES/TUBES:Left chest pacer with leads in unchanged position. LUNGS:The lungs are well-inflated. No focal consolidation. Mild central pulmonary vascular congestion without carmenza edema. PLEURA:No pleural effusion or pneumothorax. MEDIASTINUM:The cardiomediastinal silhouette appears unchanged in size and shape. BONES/SOFT TISSUES:No acute osseous injury. ABDOMEN:No free air under the diaphragm. IMPRESSION: Mild central pulmonary vascular congestion without carmenza pulmonary edema. Signed by: Sandra Pennington MD on 12/29/2018 4:31 PM
[2018-12-29 16:49] LABS: BASOPHILS % 0.4 % (0.0-1.0); EOSINOPHILS # (AUTO) 0.1 (0.0-0.4); EOSINOPHILS % 0.7 % (0.0-6.0); HEMATOCRIT 33.3 % (38.2-49.6); HEMOGLOBIN 10.8 g/dL (14.0-18.0); LYMPHOCYTES # (AUTO) 2.9 (1.0-3.2); LYMPHOCYTES % 34.6 % (18.0-39.1); MEAN CORPUSCULAR HEMOGLOBIN 28.5 pg (28-32); MEAN CORPUSCULAR HGB CONC 32.4 g/dL (31-35); MEAN CORPUSCULAR VOLUME 87.9 fL (81-99); MONOCYTES # (AUTO) 1.1 (0.2-0.8); MONOCYTES % 12.8 % (4.4-11.3); NEUTROPHILS # (AUTO) 4.3 (2.1-6.9); NEUTROPHILS % 50.3 % (38.7-80.0); PLATELET COUNT 140 x10e3/uL (140-360); RED BLOOD COUNT 3.79 x10e6/uL (4.3-5.7)
[2018-12-29 17:04] LABS: ALBUMIN 3.6 g/dL (3.5-5.0); ALBUMIN/GLOBULIN RATIO 1.1 (0.8-2.0); ANION GAP 13.8 mmol/L (8-16); CREATININE, SERUM 1.52 mg/dL (0.72-1.25); POTASSIUM 3.8 mmol/L (3.5-5.1)
[2018-12-29 17:10] LABS: CREATINE KINASE MB 0.7 ng/mL (0-5.0)
--- NOTE | 2018-12-29 17:55 | NUR ---
[facility] CALLED AND ON WAY FOR D/C
--- NOTE | 2018-12-29 19:06 | NUR ---
pt upset over wait time for ems. re-called [facility] for update.
== END 2018-12-29 19:20 | disposition home or self-care (01) ==
LOC: ER 15:48
DX: N18.9 Chronic kidney disease, unspecified (principal); D63.1 Anemia in chronic kidney disease; W01.0XXA Fall on same level from slipping, tripping and stumbling without subsequent striking against object, initial encounter; Y92.009 Unspecified place in unspecified non-institutional (private) residence as the place of occurrence of the external cause
CPT/HCPCS: 36415; 71045; 80053; 82550; 82553; 84484; 85025; 99284

== ENCOUNTER 2019-09-18 17:32 | Inpatient (IN) | payer MEDICARE, OTHER ==
[~2019-09-18] VITALS: Ht 182.9 cm; Wt 115.8 kg
[2019-09-18 19:00] LABS: BASOPHILS # (AUTO) 0.1 (0.0-0.1); BASOPHILS % 0.3 % (0.0-1.0); EOSINOPHILS % 0.1 % (0.0-6.0); HEMATOCRIT 37.3 % (38.2-49.6); HEMOGLOBIN 12.3 g/dL (14.0-18.0); LYMPHOCYTES % 12.4 % (18.0-39.1); MEAN CORPUSCULAR HEMOGLOBIN 29.4 pg (28-32); MONOCYTES # (AUTO) 1.9 (0.2-0.8); MONOCYTES % 11.5 % (4.4-11.3); NEUTROPHILS % 73.8 % (38.7-80.0); PLATELET COUNT 234 x10e3/uL (140-360); RED BLOOD COUNT 4.19 x10e6/uL (4.3-5.7); RED CELL DISTRIBUTION WIDTH 14.2 % (11.7-14.4)
[2019-09-18] MEDS ORDERED: PIPER-TAZ 3.375 GM 50 ML IV STA (19:05)
[2019-09-18] MEDS ORDERED: LEVOFLOXACIN 750MG/D5W 150ML 150 ML IV STA (19:18)
[2019-09-18 19:20] LABS: ALBUMIN 3.7 g/dL (3.5-5.0); ALBUMIN/GLOBULIN RATIO 0.8 (0.8-2.0); ANION GAP 16.2 mmol/L (8-16); CREATININE, SERUM 1.93 mg/dL (0.72-1.25); POTASSIUM 4.2 mmol/L (3.5-5.1)
--- NOTE | 2019-09-18 19:21 | Emergency Department Note ---
History of Present Illnes History of Present Illness Chief Complaint: General Medicine Complaints History of Present Illness This is a 78 year old male for 1 month h/o of dysuria malaise . 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 Any updates have been documented here. Past Medical History Recent Fever: No Clinical Suspicion of Infectio: Yes New/Unexplained Change in Ment: No Past Medical History: Hypertension, Diabetes, CHF, CVA, A-Fib, Hypothyroidism, Hyperlipedemia Other Medical History: [place] CHRONIC DIABETIC ULCERS Past Surgical History: Pacer/AICD, Back Surgery Other Surgery: Previous debridements to feet. Social History Smoking Cessation: Former smoker Alcohol Use: Occasional Any Illegal Drug Use: No TB Exposure/Symptoms: No Physically hurt or threatened: No Other Last Tetanus: OOD Any Pre-Existing Lines (PICC,: No Is patient up to date on immun: Yes Last Flu: unknown Last Pneumovax: unknown Physical Exam Related Data Allergies: Coded Allergies: codeine (Verified Allergy, Intermediate, rash, 09/18/19) "many years ago" penicillin (Verified Allergy, Mild, Rash, 09/08/18) Triage Vital Signs Vital Signs Date Time Temp Pulse Resp B/P (MAP) Pulse Ox O2 Delivery O2 Flow Rate FiO2 09/18/19 17:51 98.6 86 12 101/43 97 Physical Exam CONSTITUTIONAL Constitutional: Present morbidly obese, Present ill appearing HENT HENT: Present normocephalic, Present atraumatic, Present oropharynx clear/moist, Present nose normal HENT L/R: Present left ext ear normal, Present right ext ear normal EYES Eyes: Reports PERRL, Reports conjunctivae normal NECK Neck: Present ROM normal PULMONARY Pulmonary: Present effort normal, Present breath sounds normal CARDIOVASCULAR Cardiovascular: Present regular rhythm, Present heart sounds normal, Present capillary refill normal, Present normal rate GASTROINTESTINAL Abdominal: Present soft, Present nontender, Present bowel sounds normal GENITOURINARY Genitourinary: Present other (scrotal erythema. ) SKIN Skin: Present warm, Present dry MUSCULOSKELETAL Musculoskeletal: Present ROM normal NEUROLOGICAL Neurological: Present alert, Present oriented x 3, Present no gross motor or sensory deficits PSYCHOLOGICAL Psychological: Present mood/affect normal, Present judgement normal Results Laboratory Result Diagram: 09/18/19 4060 Laboratory Laboratory Tests Test 09/18/19 22:58 09/18/19 20:30 09/18/19 19:17 09/18/19 18:52 Lactic Acid Level 1.6 mmol/L (0.5-2.0) Urine Color Yellow (YELLOW) Urine Clarity Sl cloudy (CLEAR) Urine pH 5.5 (5 - 7) Urine Specific [place] 1.020 (1.010-1.025) Urine Protein 2+ (NEGATIVE) Urine Glucose (UA) 2+ (NEGATIVE) Urine Ketones 1+ (NEGATIVE) Urine Blood Moderate (NEGATIVE) Urine Nitrite Positive (NEGATIVE) Urine Bilirubin Negative (NEGATIVE) Urine Urobilinogen 1 mg/dL (0.2 - 1) Urine Leukocyte Esterase Large (NEGATIVE) Urine RBC 21-50 /HPF (0-5) Urine WBC >50 /HPF (0-5) Urine Epithelial Cells Few /LPF (NONE) Urine Bacteria Few /HPF (NONE) White Blood Count 16.32 x10e3/uL (4.8-10.8) Red Blood Count 4.19 x10e6/uL (4.3-5.7) Hemoglobin 12.3 g/dL (14.0-18.0) Hematocrit 37.3 % (38.2-49.6) Mean Corpuscular Volume 89.0 fL (81-99) Mean Corpuscular Hemoglobin 29.4 pg (28-32) Mean Corpuscular Hemoglobin Concent 33.0 g/dL (31-35) Red Cell Distribution Width 14.2 % (11.7-14.4) Platelet Count 234 x10e3/uL (140-360) Neutrophils (%) (Auto) 73.8 % (38.7-80.0) Lymphocytes (%) (Auto) 12.4 % (18.0-39.1) Monocytes (%) (Auto) 11.5 % (4.4-11.3) Eosinophils (%) (Auto) 0.1 % (0.0-6.0) Basophils (%) (Auto) 0.3 % (0.0-1.0) Neutrophils # (Auto) 12.0 (2.1-6.9) Lymphocytes # (Auto) 2.0 (1.0-3.2) Monocytes # (Auto) 1.9 (0.2-0.8) Eosinophils # (Auto) 0.0 (0.0-0.4) Basophils # (Auto) 0.1 (0.0-0.1) Absolute Immature Granulocyte (auto 0.31 x10e3/uL (0-0.1) Sodium Level 133 mmol/L (136-145) Potassium Level 4.2 mmol/L (3.5-5.1) Chloride Level 92 mmol/L (98-107) Carbon Dioxide Level 29 mmol/L (22-29) Anion Gap 16.2 mmol/L (8-16) Blood Urea Nitrogen 15 mg/dL (7-26) Creatinine 1.93 mg/dL (0.72-1.25) Estimat Glomerular Filtration Rate 34 ML/MIN (60-) BUN/Creatinine Ratio 8 (6-25) Glucose Level 529 mg/dL (74-118) Calcium Level 9.0 mg/dL (8.4-10.2) Total Bilirubin 0.9 mg/dL (0.2-1.2) Aspartate Amino Transf (AST/SGOT) 21 IU/L (5-34) Alanine Aminotransferase (ALT/SGPT) 25 IU/L (0-55) Alkaline Phosphatase 83 IU/L (40-150) Total Protein 8.4 g/dL (6.5-8.1) Albumin 3.7 g/dL (3.5-5.0) Globulin 4.7 g/dL (2.3-3.5) Albumin/Globulin Ratio 0.8 (0.8-2.0) Imaging Imaging results reviewed: Yes Impressions [place] [address] Patient Name: FERNANDA LEAL MR #: [id number] : 1940 Age/Sex: 78/M Req #: [id number] Adm Physician: Ordered by: GRACE HERRERA DO Report #: [id number] Location: ER Room/Bed: Procedure: [id number] CT/CT ABDOMEN/PELVIS WO Exam Date: 09/18/19 Exam Time: 1999 REPORT STATUS: Signed EXAM: CT Abdomen and Pelvis WITHOUT contrast INDICATION: Scrotal emphysema COMPARISON: Abdominal CT 09/04/2018 TECHNIQUE: Abdomen and pelvis were scanned utilizing a multidetector helical scanner from the lung base to the pubic symphysis without administration of IV contrast. Absence of intravenous contrast decreases sensitivity for detection of focal lesions and vascular pathology. Coronal and sagittal reformations were obtained. Routine protocol was performed. IV CONTRAST: None ORAL CONTRAST: None COMPLICATIONS: None RADIATION DOSE: Total DLP: 1008 mGy*cm Estimated effective dose: (DLP x 0.015 x size factor) mSv CTDIvol has been reviewed. It is below the limits set by the Radiation Protocol Committee (RPC). Dose modulation, iterative reconstruction, and/or weight based adjustment of the mA/kV was utilized to reduce the radiation dose to as low as reasonably achievable. FINDINGS: LINES and TUBES: Cardiac device leads terminating in the right atrium, right ventricle, and coronary sinus. LOWER THORAX: coronary artery calcifications. HEPATOBILIARY: No focal hepatic lesions. No biliary ductal dilation. GALLBLADDER: No radio-opaque stones or sludge. No wall thickening. SPLEEN: No splenomegaly. PANCREAS: No focal masses or ductal dilatation. ADRENALS: No adrenal nodules KIDNEYS/URETERS: No hydronephrosis. No cystic or solid mass lesions. No stones. Bilateral perinephric fat stranding. Small hypodensities too small to characterize, likely benign. GI TRACT: No abnormal distention, wall thickening, or evidence of bowel obstruction. Appendix is normal. PELVIC ORGANS/BLADDER: Circumferential urinary bladder wall thickening and perivesicular fat stranding. Prostatomegaly. LYMPH NODES: No lymphadenopathy. VESSELS: There is moderate atherosclerotic disease in the aorta and major arterial branches. PERITONEUM / RETROPERITONEUM: Presacral fat stranding. No free air. BONES: There are degenerative changes in the spine, hips, and pelvis. Osseous demineralization. SOFT TISSUES: There are fat containing inguinal hernias. IMPRESSION: Urinary bladder findings consistent with cystitis. Bilateral perinephric fat stranding can be due to renal insufficiency or senescence, although pyelonephritis can generate this finding. Prostatomegaly. Chronic partial bladder outlet obstruction due to prostatomegaly can also be a cause for this patient's bladder wall thickening. Mild scrotal edema. Chronic findings as above. Signed by: Dalton Martin DO on 09/18/2019 8:48 PM Dictated By: DALTON MARTIN DO 47 Transcribed By: TIANA on 09/18/192047 COPY TO: GRACE HERRERA DO~ Assessment & Plan Medical Decision Making MDM 78 yom with week long h/o of dysuria. SEPSIS considered as well as Zan's Grangrene. Plan to admit for UTI and scrotal cellulitis with consult to infectious disease. Assessment & Plan Final Impression: (1) UTI (urinary tract infection) (2) Cellulitis, scrotum Depart Disposition: ADMITTED Last Vital Signs Date Time Temp Pulse Resp B/P (MAP) Pulse Ox O2 Delivery O2 Flow Rate FiO2 09/18/19 17:51 98.6 86 12 101/43 97 Home Meds Reported Medications Citalopram Hydrobromide (CITALOPRAM HBR) 20 Mg Tablet, 20 MG PO DAILY, TAB 09/05/18 Aspirin (ASPIR-LOW) 81 Mg Tablet.dr, 1 TAB PO DAILY 09/05/18 Ondansetron Hcl* (ZOFRAN*) 4 Mg Tablet, 4 MG PO Q6H PRN for NAUSEA 09/05/18 Magnesium Oxide (MAGNESIUM OXIDE) 400 Mg Tablet, 400 MG PO DAILY, TAB 09/05/18 Multivitamin (MULTI-VITAMIN DAILY) 1 Each Tablet, 1 TAB PO DAILY 09/05/18 Zinc Sulfate (ZINC SULFATE) 220 Mg Tablet, 220 MG PO DAILY, #30 CAP 09/05/18 Atorvastatin Calcium (LIPITOR) 20 Mg Tablet, 40 MG HS, #30 TAB 09/05/18 Zolpidem Tartrate (AMBIEN) 10 Mg Tablet, 10 MG PO HS PRN for INSOMNIA, #30 TAB 09/05/18 Diphenhydramine Hcl (BENADRYL) 25 Mg Capsule, 25 MG PO Q6H PRN for ITCHING 09/05/18 Gabapentin (GABAPENTIN) 400 Mg Capsule, 800 MG PO TID, #30 CAP 09/05/18 Tramadol Hcl* (ULTRAM 50MG*) 50 Mg Tab, 50 MG PO Q6H PRN for pain, TAB 09/05/18 Hydrocodone Bit/Acetaminophen (NORCO 5-325 TABLET) 1 Each Tablet, 1 EACH PO Q6H PRN for Mild Pain (1-3) or Fever>100.8, TAB 09/05/18 Glimepiride (GLIMEPIRIDE) 2 Mg Tablet, 1 MG PO DAILY, TAB 09/05/18 Carvedilol (CARVEDILOL) 12.5 Mg Tablet, 12.5 MG PO BID, #60 TAB hold for sbp <110 or HR <60 09/05/18 [Humalog Sliding] No Conflict Check 35/40/40 SLIDING SCALE 11/10/13 Insulin Glargine (LANTUS 3ML PEN) 100 Units/1 Ml Inj, 65 UNITS SQ ACS 11/10/13 Insulin Glargine (LANTUS 3ML PEN) 100 Units/1 Ml Inj, 35 UNITS SQ ACB 11/10/13 Acetaminophen/Hydrocodone* (NORCO 10MG-325MG*) 1 Ea Tab, 1 TAB PO TID PRN for PAIN, TAB 11/10/13 Zolpidem Tartrate (AMBIEN) 5 Mg Tablet, 10 MG PO BEDTIME, #30 TAB 11/10/13 Salmeterol Xinaf/Fluticasone* (ADVAIR 500/50*) 1 Ea Aerp, 1 PUFF INH PRN, INH 11/10/13 Fluticasone Propionate (FLONASE) 16 Gm [place].susp, 16 GM NA PRN for ALLERGY, BOTTLE 11/10/13 Alprazolam (ALPRAZOLAM) 1 Mg Tablet, 1 MG PO TID PRN for ANXIETY, #30 TAB 11/10/13 Atorvastatin Calcium (ATORVASTATIN CALCIUM) 10 Mg Tablet, 40 MG PO BEDTIME, #30 TAB 11/10/13 Ezetimibe (ZETIA) 10 Mg Tablet, 10 MG PO BEDTIME, #30 TAB 11/10/13 Furosemide (FUROSEMIDE) 40 Mg Tablet, 40 MG PO Daily, #30 TAB 11/10/13 Amlodipine Besylate (AMLODIPINE BESYLATE) 5 Mg Tablet, 5 MG PO BID, #30 TAB 11/10/13 Spironolactone (SPIRONOLACTONE) 25 Mg Tablet, 25 MG PO DAILY, #60 TAB 11/10/13 [Metformin] No Conflict Check, 1000 MG PO BID 11/10/13 Quinapril Hcl (QUINAPRIL HCL) 20 Mg Tablet, 40 MG PO DAILY, #30 TAB 11/10/13 Levothyroxine Sodium (SYNTHROID) 125 Mcg Tab, 125 MCG PO DAILY@0600, #30 TAB 11/10/13 [Vit B 12] No Conflict Check, 1000 MG PO DAILY 11/10/13 [Vit D 1999] No Conflict Check 11/10/13 Medications in the ED Piperacillin Sod/ Tazobactam Sod 50 ml @ 50 mls/hr NOW STAT IV ; Start 09/18/19 at 19:05; Stop 09/18/19 at 19:19; Status DC Levofloxacin/ Dextrose 150 ml @ 100 mls/hr NOW STAT IV ; Start 09/18/19 at 19:18; Stop 09/18/19 at 20:47; Status UNGRACE AGUILAR DO Sep 18, 2019 19:21
[2019-09-18] MEDS ORDERED: SODIUM CHLORIDE 0.9% 1000ML 1,000 ML IV STA (19:27)
[2019-09-18] MEDS ORDERED: ONDANSETRON HCL INJ 2MG/ML 2ML 2 MG/ML VIAL IV PRN (19:45)
[2019-09-18] MEDS ORDERED: MORPHINE SULFATE INJ 4 MG/ML INJ 1ML IV PRN (19:45)
[2019-09-18 19:47] LABS: CLARITY,URINE SL CLOUDY (CLEAR); COLOR,URINE YELLOW (YELLOW)
[2019-09-18 19:48] LABS: KETONES,URINE 1+ (NEGATIVE); LEUKOCYTE ESTERASE ,URINE LARGE (NEGATIVE); NITRITE,URINE POSITIVE (NEGATIVE); PROTEIN,URINE DIPSTICK 2+ (NEGATIVE)
[2019-09-18 19:49] LABS: BILIRUBIN,URINE NEGATIVE (NEGATIVE); URINE UROBILINOGEN 1 mg/dL (0.2 - 1)
[2019-09-18 19:52] LABS: WBC,URINE (MAN) >50 /HPF (0-5)
[2019-09-18 19:53] LABS: BACTERIA,URINE FEW /HPF; EPITHELIAL CELLS,URINE FEW /LPF; RBC,URINE 21-50 /HPF (0-5)
--- NOTE | 2019-09-18 20:52 | Diagnostic Imaging Report ---
EXAM: CT Abdomen and Pelvis WITHOUT contrast INDICATION: Scrotal emphysema COMPARISON: Abdominal CT 09/04/2018 TECHNIQUE: Abdomen and pelvis were scanned utilizing a multidetector helical scanner from the lung base to the pubic symphysis without administration of IV contrast. Absence of intravenous contrast decreases sensitivity for detection of focal lesions and vascular pathology. Coronal and sagittal reformations were obtained. Routine protocol was performed. IV CONTRAST: None ORAL CONTRAST: None COMPLICATIONS: None RADIATION DOSE: Total DLP: 1008 mGy*cm Estimated effective dose: (DLP x 0.015 x size factor) mSv CTDIvol has been reviewed. It is below the limits set by the Radiation Protocol Committee (RPC). Dose modulation, iterative reconstruction, and/or weight based adjustment of the mA/kV was utilized to reduce the radiation dose to as low as reasonably achievable. FINDINGS: LINES and TUBES: Cardiac device leads terminating in the right atrium, right ventricle, and coronary sinus. LOWER THORAX: coronary artery calcifications. HEPATOBILIARY: No focal hepatic lesions. No biliary ductal dilation. GALLBLADDER: No radio-opaque stones or sludge. No wall thickening. SPLEEN: No splenomegaly. PANCREAS: No focal masses or ductal dilatation. ADRENALS: No adrenal nodules KIDNEYS/URETERS: No hydronephrosis. No cystic or solid mass lesions. No stones. Bilateral perinephric fat stranding. Small hypodensities too small to characterize, likely benign. GI TRACT: No abnormal distention, wall thickening, or evidence of bowel obstruction. Appendix is normal. PELVIC ORGANS/BLADDER: Circumferential urinary bladder wall thickening and perivesicular fat stranding. Prostatomegaly. LYMPH NODES: No lymphadenopathy. VESSELS: There is moderate atherosclerotic disease in the aorta and major arterial branches. PERITONEUM / RETROPERITONEUM: Presacral fat stranding. No free air. BONES: There are degenerative changes in the spine, hips, and pelvis. Osseous demineralization. SOFT TISSUES: There are fat containing inguinal hernias. IMPRESSION: Urinary bladder findings consistent with cystitis. Bilateral perinephric fat stranding can be due to renal insufficiency or senescence, although pyelonephritis can generate this finding. Prostatomegaly. Chronic partial bladder outlet obstruction due to prostatomegaly can also be a cause for this patient's bladder wall thickening. Mild scrotal edema. Chronic findings as above. Signed by: Dalton Martin DO on 09/18/2019 8:48 PM
[2019-09-18] MEDS ORDERED: DEXTROSE 50% SYRINGE 50 ML IV PRN ×2 (21:30→21:45)
[2019-09-18] MEDS ORDERED: INSULIN REGULAR, HUMAN 100 UNIT/1 ML 3ML VIAL IV ONE (21:30)
[2019-09-18] MEDS ORDERED: INSULIN REGULAR, HUMAN 100 UNIT/1 ML 3ML VIAL ONE (21:44)
[2019-09-18 22:30] VITALS: BP 123/93
--- NOTE | 2019-09-18 22:40 | NUR ---
patient is a new admit that arrived via stretcher. patient is awake and talking. patient has been transferred into the bed. bed is in lowest position and call light is within reach.
[2019-09-18 22:45] VITALS: BP 123/93
[2019-09-18] MEDS ORDERED: ZOLPIDEM TARTRATE 5 MG TAB PO PRN (22:45)
[2019-09-18] MEDS ORDERED: INSULIN LISPRO 100 UNIT/1 ML 3ML VIAL SQ ONE (22:45)
--- NOTE | 2019-09-18 22:48 | NUR ---
Patient has a sugar of 447. notified received new order for one time dose of 5 units of humalog.
[2019-09-18 22:59] VITALS: BP 123/93
[2019-09-18] MEDS: GABAPENTIN 400 MG CAP PO SCH (23:42)
[2019-09-18] MEDS: SODIUM CHLORIDE 0.9% 1000ML 1,000 ML IV SCH (23:43)
[2019-09-18] MEDS ORDERED: SODIUM CHLORIDE 0.9% 1000ML 1,000 ML ONE (23:46)
[2019-09-19] VITALS (16 sets, daily range): BP systolic 74–141; BP diastolic 38–69
[2019-09-19] MEDS ORDERED: ONDANSETRON HCL INJ 2MG/ML 2ML 2 MG/ML VIAL IV PRN (04:45)
[2019-09-19] MEDS: MORPHINE SULFATE INJ 4 MG/ML INJ 1ML IV PRN (04:50)
--- NOTE | 2019-09-19 06:40 | NUR ---
patient is resting comfortably in the bed. bed is in the lowest position and call light is within reach.
[2019-09-19] MEDS ORDERED: DIPHENHYDRAMINE HCL 25 MG CAP PO PRN (07:00)
[2019-09-19] MEDS ORDERED: SALMETEROL/FLUTICASONE 500/50 INH SCH (07:00)
[2019-09-19] MEDS ORDERED: ALPRAZOLAM 1 MG TAB PO PRN (07:00)
[2019-09-19] MEDS ORDERED: ONDANSETRON HCL 4 MG ORAL DISINTEGRATING TAB PO PRN (07:15)
[2019-09-19] MEDS ORDERED: INSULIN LISPRO 100 UNIT/1 ML 3ML VIAL SQ SCH (07:30)
--- NOTE | 2019-09-19 08:12 | NUR ---
spoke with Dr. Flores regarding pt's blood sugar. he states pt can have a one-time dose of 15 units Humalog. will administer and continue to monitor.
[2019-09-19] MEDS: INSULIN LISPRO 100 UNIT/1 ML 3ML VIAL SQ SCH ×4 (08:13→20:17)
[2019-09-19] MEDS: GABAPENTIN 400 MG CAP PO SCH ×4 (08:30→20:25)
[2019-09-19] MEDS: MAGNESIUM OXIDE 400 MG TAB PO SCH (08:31)
[2019-09-19] MEDS: MULTIVITAMINS/MINERALS TAB PO SCH (08:31)
[2019-09-19] MEDS: CARVEDILOL 12.5 MG TAB PO SCH ×2 (08:32→16:42)
[2019-09-19] MEDS: CITALOPRAM HYDROBROMIDE 20 MG TAB PO SCH (08:32)
[2019-09-19] MEDS: ASPIRIN 81 MG CHEW TAB PO SCH (08:32)
[2019-09-19] MEDS: GLIMEPIRIDE 2 MG TAB PO SCH (08:33)
[2019-09-19] MEDS: SPIRONOLACTONE 25 MG TAB PO SCH (08:33)
[2019-09-19] MEDS: AMLODIPINE BESYLATE 5 MG TAB PO SCH ×2 (08:34→16:39)
[2019-09-19] MEDS: QUINAPRIL HCL 20 MG TAB PO SCH (08:34)
[2019-09-19] MEDS: EZETIMIBE 10 MG TAB PO SCH (08:35)
[2019-09-19] MEDS: ZINC SULFATE 220 MG CAP PO SCH (08:35)
[2019-09-19] MEDS: NYSTATIN 100,000 UNITS/GM CRM 30GM TUBE TOP SCH ×2 (09:00→16:39)
[2019-09-19] MEDS ORDERED: FUROSEMIDE 40 MG TAB PO SCH (09:00)
--- NOTE | 2019-09-19 10:21 | History and Physical ---
REASON FOR ADMISSION: The patient is a 78-year-old male, who came with scrotal cellulitis. HISTORY OF PRESENTING ILLNESS: Mr. Shahriar Odonnell with a history of uncontrolled diabetes mellitus, history of hypertension, history of peripheral arterial disease, was in usual state of health until the patient continued complains of dysuria and generalized fatigue. The patient came in with EMS because of the fatigue and also with scrotal pain and tenderness, and is admitted to hospital for scrotal cellulitis. PAST MEDICAL HISTORY: History of hypertension, uncontrolled diabetes, history of CVA in the past, history of atrial fibrillation, history of hypothyroidism, history of hyperlipidemia, history of congestive heart failure with preserved ejection fraction. The patient also has a history of multiple falls, history of diabetic ulcers. PAST SURGICAL HISTORY: History of low back surgery, laminectomy, and also history of AICD placement for his atrial fibrillation and congestive heart failure. SOCIAL HISTORY: Former smoker, nonsmoker currently. Alcohol use is occasional. No illicit drugs and no exposure to any communicable disease in the recent past. MEDICATIONS: The patient takes [place] 10/325, alprazolam 1 mg 3 times a day, amlodipine 5 mg b.i.d., atorvastatin 40 mg at nighttime, citalopram 20 mg, diphenhydramine as needed, Zetia 10 mg, fluticasone once a day, furosemide 40 mg daily, gabapentin 800 mg 3 times a day, glimepiride 2 mg daily, levothyroxine 125 mcg daily, magnesium oxide 400, quinapril 40 mg daily, Advair 500/50 once a day, Aldactone 25 mg daily, tramadol 50 mg as needed, zolpidem 10 mg at nighttime, and metformin 1000 mg twice a day. The patient also takes vitamin B12. REVIEW OF SYSTEMS: Negative for chest pain. Positive for generalized fatigue and weakness. No nausea. No vomiting. No diarrhea. No constipation. No rectal bleeding. No hematochezia. No hematemesis. Positive for scrotal pain and tenderness, and also pain in the lower extremity secondary to PAD. PHYSICAL EXAMINATION: VITAL SIGNS: Temperature is 99.1, T-max is 99.1, pulse of 85, respirations of 18, blood pressure is 115/57, and pulse oximetry of 94%. HEENT: Normocephalic, atraumatic. Pupils are reactive. CVS: S1 and S2, regular at this time. ABDOMEN: Soft, nontender, nondistended, protuberant. EXTREMITIES: Positive for edema. Decreased pulses in right lower extremity, toes with distal gangrene, also fairly good capillary refill present at this time. GENITALIA: Scrotum positive for erythema and tenderness around it. The patient has fungal intertrigo too and redness present in the area. NEUROLOGIC: Decreased sensation in the lower extremities. Otherwise, moves all extremities and good reflexes and good strength in all extremities. LABORATORY VALUES: Initial white count of 16,000, hemoglobin of 12.3, hematocrit 37.3, lymphocytes 12.4, and no left shift present. Chemistry; shows sodium 133, potassium 4.2, BUN of 15, creatinine of 1.93, glucose of 529. Lactic acid was 1.6. Urine, large amount of leukocyte esterase present. SEROLOGY: Coronavirus is pending. MICROBIOLOGY: Blood cultures are pending. Urine cultures to be done. ASSESSMENT: Mr. Shahriar Odonnell with cellulitis of the scrotum. Currently, the patient is on full dose of Zosyn has been given. We will resume Zosyn at this time. 1. Gangrene. Dry gangrene of the distal great toe, right side with cellulitis of the toe. Continue on Zosyn. We will add cefepime to the picture. 2. Hypertension. Continue anti-hypertensives. 3. Hyperlipidemia. Continue on anti-lipid lowering agents. 4. Uncontrolled diabetes mellitus. Restart his current regimen. 5. Morbid obesity. 6. 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 7. Diabetes, diabetic neuropathy, nephropathy. 8. Wcrgq-wh-okxlzgq kidney failure. The patient is on IV fluids right now. Trend his creatinine. We will also discontinue his metformin, secondary to his renal function. Further recommendation per clinical course. We will continue to monitor the patient. All his home medication of reinstituted, started on antibiotic and kidney doses, and also consult Dr. Zacarias and also Dr. Goodwin for foot ulceration and gangrene. Bob Flores MD ASJ/MODL /[id number]
--- NOTE | 2019-09-19 11:00 | NUR ---
while obtaining vital signs, pt noted to be unresponsive. Blood pressure 70's systolic over 40's diastolic. pt O2 sat 88% on RA, started on 2L. Pt arousable to painful stimuli, able to speak 1-2 words at a time. increased oxygen to 4L NC. Pt's blood sugar noted at 358. will call Rapid Response Team.
--- NOTE | 2019-09-19 11:06 | NUR ---
Rapid Response Team was called. Dr. Hallman, ER MR at bedside. pt given 1L fluid bolus. STAT central line ordered.
[2019-09-19] MEDS ORDERED: SODIUM CHLORIDE 0.9% 1000ML 1,000 ML ONE ×2 (11:17→12:38)
--- NOTE | 2019-09-19 11:25 | NUR ---
pt improving, blood pressure now 97/47. pt able to speak 3-5 word sentences, more alert. Dr. Flores notified; new orders given. pt will be transferred to ICU.
[2019-09-19] MEDS ORDERED: PIPERACILLIN/TAZO 2.25 GM 50 ML IV SCH (12:00)
[2019-09-19 12:06] LABS: BASOPHILS # (AUTO) 0.1 (0.0-0.1); BASOPHILS % 0.3 % (0.0-1.0); EOSINOPHILS % 0.3 % (0.0-6.0); HEMATOCRIT 29.6 % (38.2-49.6); HEMOGLOBIN 9.6 g/dL (14.0-18.0); LYMPHOCYTES % 13.1 % (18.0-39.1); MEAN CORPUSCULAR HEMOGLOBIN 29.4 pg (28-32); MEAN CORPUSCULAR HGB CONC 32.4 g/dL (31-35); MEAN CORPUSCULAR VOLUME 90.5 fL (81-99); MONOCYTES % 13.4 % (4.4-11.3); NEUTROPHILS # (AUTO) 10.6 (2.1-6.9); NEUTROPHILS % 70.4 % (38.7-80.0); PLATELET COUNT 208 x10e3/uL (140-360); RED BLOOD COUNT 3.27 x10e6/uL (4.3-5.7); RED CELL DISTRIBUTION WIDTH 14.4 % (11.7-14.4)
--- NOTE | 2019-09-19 12:15 | NUR ---
called multiple times in attempt to contact pt's family regarding change in pt's status. called Home number ([phone]), 's number ([phone]) and pt's son's number ([phone]). left messages to call hospital as soon as possible.
[2019-09-19 12:19] LABS: INR 1.03; PROTHROMBIN TIME 14.1 seconds (11.9-14.5)
[2019-09-19 12:20] LABS: PARTIAL THROMBOPLASTIN TIME 30.2 seconds (23.8-35.5)
[2019-09-19 12:26] LABS: ALBUMIN 2.7 g/dL (3.5-5.0); ALBUMIN/GLOBULIN RATIO 0.8 (0.8-2.0); ANION GAP 11.7 mmol/L (8-16); CALCIUM 7.6 mg/dL (8.4-10.2); CREATININE, SERUM 1.98 mg/dL (0.72-1.25); POTASSIUM 3.7 mmol/L (3.5-5.1)
[2019-09-19 12:32] LABS: CREATINE KINASE MB 0.5 ng/mL (0-5.0)
[2019-09-19 12:33] LABS: B-TYPE NATRIURETIC PEPTIDE2 18.4 pg/mL (0-100)
--- NOTE | 2019-09-19 13:11 | Consultation ---
DATE OF CONSULTATION: Pulmonary Critical Care Consultation CHIEF COMPLAINT: Low blood pressure, hyperglycemia, and scrotal cellulitis. HISTORY OF PRESENT ILLNESS: The patient is a 78-year-old man. He has a history of poorly-controlled diabetes, hypertension, and peripheral vascular disease. He came in complaining of fatigue and dysuria. On admission, he was noted to have swelling and erythema of the scrotum consistent with scrotal cellulitis. He was originally admitted to the floor, but then transferred to the intensive care unit because of low blood pressure and increasing creatinine. He also had elevated blood sugars. PAST SURGICAL HISTORY: 1. Prior back surgery. 2. Atrial fibrillation, requiring AICD placement. PAST MEDICAL HISTORY: 1. Chronic systolic congestive heart failure. 2. Prior cerebrovascular accident. 3. Uncontrolled diabetes. SOCIAL HISTORY: The patient is a former smoker. He is only an occasional alcohol user. ALLERGIES: NO KNOWN DRUG ALLERGIES. FAMILY HISTORY: Family history is noncontributory. REVIEW OF SYSTEMS: He complains of fatigue and some confusion. There is no chest pain. He is not complaining of dyspnea. He has no abdominal pain. There is no nausea or vomiting. He does have some scrotal pain and swelling. There is some leg edema. PHYSICAL EXAMINATION: VITAL SIGNS: The patient is afebrile. The blood pressure is now 74/40 and the saturation is 92%. He is on a nasal cannula. HEENT: Shows no facial swelling or erythema. The oropharynx is normal. LYMPHATIC: Shows no submandibular, cervical, or supraclavicular adenopathy. CARDIAC: Reveals regular rate and rhythm with normal S1 and S2. LUNGS: Auscultation of lungs reveals decreased breath sounds at the bases. There is no wheezing. ABDOMEN: Soft and nontender. There is no rebound or guarding. : There is yeast and swelling in the scrotum. EXTREMITIES: There is also peripheral edema. LABORATORY DATA: White blood cells count is 15.06 and the hemoglobin is 9.6. The platelet count is 208. The BUN to creatinine ratio is 15 to 1.93 and the sodium is 133. Glucose is 529. Albumin is 3.9. Urinalysis shows greater than 50 white blood cells. IMPRESSION: 1. Urinary tract infection with severe sepsis, present on admission. 2. Scrotal cellulitis. 3. Dry gangrene of the distal toe. 4. Diabetes out of control. 5. Hypertension. 6. Eudbl-hl-iwyyewd renal failure. 7. Atrial fibrillation. PLAN: 1. Continue current antibiotics for now and taper based on culture results. 2. Continue IV fluids and repeat creatinine. 3. Echocardiogram. 4. Continue insulin as needed. 5. Cardiology consultation is pending. MD TOÑO Pastrana/VINICIUS /[id number]
[2019-09-19] MEDS: SODIUM CHLORIDE 0.9% 1000ML 1,000 ML IV SCH ×2 (13:16→18:34)
[2019-09-19] MEDS: LEVOTHYROXINE SODIUM 125 MCG TAB PO SCH (13:32)
--- NOTE | 2019-09-19 13:43 | Diagnostic Imaging Report ---
EXAMINATION: CHEST X-RAY LINE PLACEMENT COMPARISON: Chest x-ray 12/29/2018 INDICATION: ^CENTRAL LINE DISCUSSION: Frontal view of the chest obtained at 1313 hours. Costophrenic angles are not included on the image. HEART AND MEDIASTINUM: The heart is mildly enlarged. There are calcifications throughout the aortic arch LINES: Right IJ catheter terminates in the SVC without pneumothorax. Pacer/fibrillator wires terminate in the right atrium and right ventricle. LUNGS/PLEURA: Low lung volumes. Mild right basilar atelectasis. No interstitial edema or vascular congestion. No large effusions. BONES AND SOFT TISSUES: No focal osseous lesion. The soft tissues are normal. IMPRESSION: Right IJ catheter terminates in the SVC without pneumothorax. Low lung volumes and mild right basilar atelectasis. Signed by: Dr. Xander Salguero MD on 09/19/2019 1:39 PM
--- NOTE | 2019-09-19 14:03 | NUR ---
History of hypertension, uncontrolled diabetes, history of CVA in the past, history of atrial fibrillation, history of hypothyroidism, history of hyperlipidemia, history of congestive heart failure with preserved ejection fraction. The patient also has a history of multiple falls, history of diabetic ulcers. PAST SURGICAL HISTORY: History of low back surgery, laminectomy, and also history of AICD placement for his atrial fibrillation and congestive heart failure. SOCIAL HISTORY: Former smoker, nonsmoker currently. Alcohol use is occasional. No illicit drugs and no exposure to any communicable disease in the recent past. MEDICATIONS: The patient takes [place] 10/325, alprazolam 1 mg 3 times a day, amlodipine 5 mg b.i.d., atorvastatin 40 mg at nighttime, citalopram 20 mg, diphenhydramine as needed, Zetia 10 mg, fluticasone once a day, furosemide 40 mg daily, gabapentin 800 mg 3 times a day, glimepiride 2 mg daily, levothyroxine 125 mcg daily, magnesium oxide 400, quinapril 40 mg daily, Advair 500/50 once a day, Aldactone 25 mg daily, tramadol 50 mg as needed, zolpidem 10 mg at nighttime, and metformin 1000 mg twice a day. The patient also takes vitamin B12. [id number]
[2019-09-19] MEDS: FLUCONAZOLE 200 MG/100 ML 100 ML IV SCH (15:13)
[2019-09-19] MEDS: MEROPENEM 500MG/ NS 50ML 50 ML IV SCH (16:37)
[2019-09-19] MEDS: ENOXAPARIN 30 MG/0.3 ML SYR SC SCH (16:46)
[2019-09-19 19:38] LABS: ALBUMIN 2.8 g/dL (3.5-5.0); ALBUMIN/GLOBULIN RATIO 0.8 (0.8-2.0); ANION GAP 12.1 mmol/L (8-16); CALCIUM 7.7 mg/dL (8.4-10.2); CREATININE, SERUM 2.25 mg/dL (0.72-1.25); POTASSIUM 4.1 mmol/L (3.5-5.1)
--- NOTE | 2019-09-19 19:57 | Consultation ---
DATE OF CONSULTATION: 09/19/2019 HISTORY OF PRESENT ILLNESS: Mr. Odonnell is known to me from before. He is a 78-year-old white gentleman, who has history of redness, swelling of his scrotum, diabetes mellitus, obesity, hypertension, and peripheral vascular disease, comes in with dysuria, generalized fatigue, not feeling well, has scrotal pain. He was admitted with cellulitis. The patient does have history of hypertension, diabetes mellitus, obesity, low back surgery, laminectomy, and AICD placement. He used to smoke before. The patient was admitted originally. He was in medical floor, but he dropped his blood pressure, which was also associated with him taking blood pressure medication. He is currently in Intensive Care Unit. He is feeling better. REVIEW OF SYSTEMS: At the present time, beside weakness: HEENT: Negative. PULMONARY: Negative. CARDIAC: Negative. PHYSICAL EXAMINATION: GENERAL: He is currently alert, oriented, does not seem in acute distress. VITAL SIGNS: Stable, afebrile. Blood pressure 74/48. HEENT: He is not icteric. NECK: Supple. CHEST: Decreased breath sounds in the bases. HEART: S1, S2. No murmurs. ABDOMEN: Soft. : In the scrotum, there is no erythema and edema. LABORATORY DATA: His cultures are still pending. Blood cultures still pending. His white count when he first came was 16.2. Sodium 135, potassium 3.7, and creatinine 1.98. IMPRESSION: 1. Sepsis on admission. 2. Urinary tract infection. We will put him on Rocephin 2 g daily. 3. Peripheral vascular disease. 4. Hypothyroidism. 5. Diabetes mellitus. 6. Obesity. 7. Cellulitis of the scrotum, seems to be better. PLAN: I agree with IV fluids and supportive care. The patient is currently on Zosyn, so I am going to withhold it for 7 days. Continue with Zosyn. However, adjust for his kidney function to 2.25 IV q.8 and then modify after the culture. MD GHISLAINE Alan/MODL /[id number]
[2019-09-19] MEDS ORDERED: DEXTROSE 50% SYRINGE 50 ML IV PRN (20:15)
[2019-09-19] MEDS: ZOLPIDEM TARTRATE 5 MG TAB PO SCH (20:25)
[2019-09-19] MEDS: ATORVASTATIN 20 MG TAB PO SCH (20:25)
[2019-09-19] MEDS ORDERED: INSULIN GLARGINE 100 UNITS/ML VIAL SQ SCH (21:00)
--- NOTE | 2019-09-19 21:00 | NUR ---
CALLED ANSWERING SERVICE FOR DR MIRZA, FOR CONSULT.
[2019-09-19] MEDS: INSULIN REGULAR, HUMAN 3ML VL 300 UNIT in SODIUM CHLORIDE 0.45% 100 ML 300 ML IV SCH ×2 (22:07)
[2019-09-20] VITALS (12 sets, daily range): BP systolic 94–139; BP diastolic 34–72
[2019-09-20] MEDS: INSULIN REGULAR, HUMAN 3ML VL 300 UNIT in SODIUM CHLORIDE 0.45% 100 ML 300 ML IV SCH ×6 (00:19→04:08)
[2019-09-20] MEDS: SODIUM CHLORIDE 0.9% 1000ML 1,000 ML IV SCH ×3 (02:33→23:04)
[2019-09-20] MEDS: HYDROCODONE/APAP 10MG-325MG TAB PO PRN (04:22)
--- NOTE | 2019-09-20 04:22 | NUR ---
BP IS 125/53 NOW. PATIENT COMPLAINED OF PAIN TO RIGHT GREAT TOE, NORCO PRN GIVEN, WILL CONTINUE TO MONITOR.
[2019-09-20] MEDS: MEROPENEM 500MG/ NS 50ML 50 ML IV SCH ×2 (04:41→17:18)
[2019-09-20 05:08] LABS: BASOPHILS # (AUTO) 0.1 (0.0-0.1); BASOPHILS % 0.3 % (0.0-1.0); EOSINOPHILS # (AUTO) 0.1 (0.0-0.4); EOSINOPHILS % 0.5 % (0.0-6.0); HEMATOCRIT 29.4 % (38.2-49.6); HEMOGLOBIN 9.4 g/dL (14.0-18.0); LYMPHOCYTES % 11.1 % (18.0-39.1); MEAN CORPUSCULAR HEMOGLOBIN 29.1 pg (28-32); MONOCYTES # (AUTO) 2.2 (0.2-0.8); MONOCYTES % 12.1 % (4.4-11.3); NEUTROPHILS # (AUTO) 13.4 (2.1-6.9); NEUTROPHILS % 73.4 % (38.7-80.0); PLATELET COUNT 218 x10e3/uL (140-360); RED BLOOD COUNT 3.23 x10e6/uL (4.3-5.7); RED CELL DISTRIBUTION WIDTH 14.3 % (11.7-14.4)
[2019-09-20 05:40] LABS: ALBUMIN 2.8 g/dL (3.5-5.0); ALBUMIN/GLOBULIN RATIO 0.8 (0.8-2.0); ANION GAP 10.5 mmol/L (8-16); CALCIUM 7.7 mg/dL (8.4-10.2); CREATININE, SERUM 1.89 mg/dL (0.72-1.25); MAGNESIUM 1.2 MG/DL (1.3-2.1); POTASSIUM 3.5 mmol/L (3.5-5.1)
--- NOTE | 2019-09-20 06:34 | Progress Note ---
DATE: Pulmonary Critical Care Progress Note The patient was started on insulin drip last night for hyperglycemia. The patient was seen by Infectious Disease and was switched to Merrem along with fluconazole. He received some intravenous fluids and his blood pressure medications were held. His blood pressure has improved this morning. PHYSICAL EXAMINATION: VITAL SIGNS: The blood pressure is now 110/53. The patient is afebrile. The heart rate is 67. The saturation is 100% on 1 L. HEENT: Shows no facial swelling or erythema. CARDIAC: Reveals regular rate and rhythm with normal S1 and S2. LUNGS: Auscultation of the lungs shows decreased breath sounds at the bases. There is no wheezing. ABDOMEN: Soft and nontender. There is no rebound or guarding. EXTREMITIES: No leg edema or calf tenderness. There is a dry gangrene on the great toe on the right side. LABORATORY DATA: White blood cell count is 18.3 and hemoglobin is 9.4. The platelet count is 218. The BUN to creatinine ratio has improved to 18/1.89. Potassium is 3.5 and other electrolytes are within normal limits. The magnesium is 1.2. The albumin is 2.8. IMPRESSION: 1. Urinary tract infection with severe sepsis, present on admission. 2. Diabetes out of control. 3. Vulha-mg-ixttujv renal failure. 4. Atrial fibrillation. 5. Chronic systolic congestive heart failure. 6. Dry gangrene of the distal toe on the right foot. 7. Kalie and cellulitis of the scrotum. PLAN: 1. Continue to hold any antihypertensive medications at this time. 2. Continue current antibiotics. 3. Continue insulin drip. 4. Nephrology is scheduled to evaluate the patient this morning. 5. Echocardiogram is still pending. 6. Case discussed with nursing staff, the patient, Internal Medicine, and Infectious Disease and Administration. Greater than 35 minutes in direct critical care time. MD TOÑO Pastrana/VINICIUS /[id number]
[2019-09-20] MEDS: LEVOTHYROXINE SODIUM 125 MCG TAB PO SCH (06:43)
--- NOTE | 2019-09-20 07:25 | NUR ---
Patient okay to transfer per Dr. Margarita Chopra "if okay with ". Dr. Mark tobias at this time spoke with [place].
[2019-09-20] MEDS: CARVEDILOL 12.5 MG TAB PO SCH (07:51)
--- NOTE | 2019-09-20 07:59 | Progress Note ---
DATE: SUBJECTIVE: The patient is a 78-year-old, who came in with acute sepsis with hypertensive episode. Rapid response was called yesterday. The patient's blood pressure dropped to the 70s over 40s. The patient is unresponsive. Boluses of fluids were given. The patient felt better and blood pressure is improved. However, the patient was transferred to ICU for better monitoring and better care. MEDICATIONS: At this time; amlodipine, atorvastatin, citalopram, [place], levothyroxine, Aldactone, and zolpidem as needed. The patient also gets Amaryl for diabetic control. Currently, he is also on an insulin drip for better control of blood sugars and the patient is also on 125 mL of normal saline for sepsis. OBJECTIVE: GENERAL: The patient is more awake and alert today. VITAL SIGNS: Temperature is 99.2, T-max is 99.2, pulse of 67, blood pressure is 125/53, and pulse oximetry of 100% on 1 L of oxygen. HEENT: Normocephalic and atraumatic. The patient is groggy, but alert. CVS: S1 and S2 normal. Regular rate and rhythm at this time. ABDOMEN: Soft, nontender, and nondistended. EXTREMITIES: No clubbing. No cyanosis. Positive edema. INTEGUMENTARY SYSTEM: Right lower extremity with cellulitis of the great toe with peripheral artery disease and eschar in the great toe. Cellulitis of the scrotum has decreased, erythema has decreased on nystatin. The patient has some unstageable sacral wound is present as per nursing staff. LABORATORY VALUES: The patient's white count has increased up to 18,000, hemoglobin 9.4, hematocrit of 29.4, left shift is present. Chemistry shows sodium 137, potassium 3.5, BUN of 18, creatinine of 1.89, which has improved from 2.25. Glucose is running in the 105 to 190s. Coags are normal. Serology coronavirus is pending. ALT and AST normalized and troponin was 0.007 yesterday. Cardiac enzymes were normal. Lactic acid 1.7. A1c is 8. ASSESSMENT: 1. Mr. Shahriar Odonnell with acute severe sepsis. 2. Acute renal failure, on IV fluids, prerenal, getting better. 3. Uncontrolled diabetes mellitus with increased amount of insulin. Plan, continue with current regimen of IV insulin drip. 4. Morbid obesity. 5. History of atrial fibrillation. 6. Peripheral arterial disease. 7. Generalized debility. 8. Sacral decubitus ulcer stage IV. 9. Septic shock. PLAN: IV antibiotics are on board. Currently, the patient is on Merrem. We will continue with the same. The patient is also on anticoagulation for hyperlipidemia continue on Ezetimibe and statin. Continue antidepressants and DVT prophylaxis and GI prophylaxis have been initiated. The patient is also on fluconazole q.24 hours and nystatin to the affected area twice a day. For further information, look in the chart. The patient is stable, can be transferred out of the ICU if it is okay with consultants. Further recommendation per clinical course. We will continue to monitor the patient. MD DENIS Tesfaye/BROOKL /[id number]
[2019-09-20] MEDS: MAGNESIUM OXIDE 400 MG TAB PO SCH (08:08)
[2019-09-20] MEDS: GABAPENTIN 400 MG CAP PO SCH (08:08)
[2019-09-20] MEDS: EZETIMIBE 10 MG TAB PO SCH (08:08)
[2019-09-20] MEDS: AMLODIPINE BESYLATE 5 MG TAB PO SCH ×2 (08:08→09:00)
[2019-09-20] MEDS: ASPIRIN 81 MG CHEW TAB PO SCH (08:08)
[2019-09-20] MEDS: MULTIVITAMINS/MINERALS TAB PO SCH (08:08)
[2019-09-20] MEDS: CITALOPRAM HYDROBROMIDE 20 MG TAB PO SCH (08:08)
[2019-09-20] MEDS: QUINAPRIL HCL 20 MG TAB PO SCH (08:08)
[2019-09-20] MEDS: ZINC SULFATE 220 MG CAP PO SCH (08:08)
[2019-09-20] MEDS: SPIRONOLACTONE 25 MG TAB PO SCH (08:08)
[2019-09-20] MEDS: GLIMEPIRIDE 2 MG TAB PO SCH (08:08)
[2019-09-20] MEDS: NYSTATIN 100,000 UNITS/GM CRM 30GM TUBE TOP SCH ×2 (08:09→17:18)
[2019-09-20 08:53] LABS: LYMPHOCYTES % (MANUAL) 15 % (19-48); MONOCYTES % (MANUAL) 12 % (3.4-9.0); MYELOCYTES % (MANUAL) 2 % (0-0); NEUTROPHILS % (MANUAL) 71 % (40-74); PLATELET ESTIMATE ADEQUATE; PLATELET MORPHOLOGY COMMENT NORMAL; RBC MORPHOLOGY COMMENT NORMAL
--- NOTE | 2019-09-20 11:51 | Consultation ---
DATE OF CONSULTATION: 09/20/2019 HISTORY OF PRESENT ILLNESS: This is a 78-year-old gentleman, was admitted with sepsis, scrotal cellulitis, much improved. Transferred out to the floor. Renal consulted for management of acute kidney injury. So far, blood and urine cultures are negative. He is lying supine, has not voided as of yet since transfer. Denies fever, chills, chest pain, or shortness of breath. Had a restful night he claims. LABORATORY DATA: Show white count elevated 18.3 with a hemoglobin of 9.4. Chemistry; sodium 137, potassium 3.5 with a bicarb 27, creatinine 1.89, down from 2.25 with a calcium level 7.7, and magnesium 1.2. Total protein 6.4, globulin 306, calcium 7.7, and albumin 2.8. ALLERGIES: TO CODEINE AND PENICILLIN. CURRENT MEDICATIONS: The patient is on fluconazole 100 mg IV piggyback daily, meropenem 500 mg IV q.12. He is on sodium chloride IV normal saline at 125 mL an hour, which I am going to drop down to 75 mL an hour. He is also on Xanax p.r.n. anxiety, amlodipine 5 mg twice a day, aspirin 81 mg to chew, atorvastatin 40 mg at bedtime, carvedilol 12.5 mg p.o. b.i.d., citalopram. He is on enoxaparin 30 subcutaneous, Zetia 10 mg daily. He is on furosemide 40 mg daily, which has been stopped. He is on a very high dose of Neurontin, which I am going to hold for now. He is on Amaryl 1 mg p.o. daily. He is also on insulin and levothyroxine. He is on Accupril, which I will stop. He is on Aldactone, which I am going to stop as well. He is on Ambien p.r.n. and zinc sulfate daily. SOCIAL HISTORY: Does not smoke or drink. PAST MEDICAL HISTORY: History of hypertension, AICD, type 2 diabetes. No prior history of kidney involvement, history of congestive heart failure, history of possible BPH. History of peripheral neuropathy, diabetes, and end-organ damage. PHYSICAL EXAMINATION: GENERAL: Awake, alert, oriented x3, lying supine, in no apparent distress. VITAL SIGNS: Blood pressure of 94/34, pulse rate 88, afebrile, respiratory rate 17. HEAD AND NECK: Cornea clear. Oral mucosa moist. LUNGS: Supine exam relatively clear. HEART: S1 and S2 audible. ABDOMEN: Otherwise soft and nontender. No apparent visceromegaly. EXTREMITIES: Lower extremity examination shows no edema. IMPRESSION AND PLAN: Hypotension. Besides discontinuing SILVIA inhibitors, I am going to hold off on his carvedilol and hold off on his Norvasc. Continue with IV normal saline. 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 We will obtain spot urine protein/creatinine ratio, urinalysis. Start Flomax. Strict I's and O's. Discussed with bedside RN. MD HERMELINDO Angulo/VINICIUS /[id number]
--- NOTE | 2019-09-20 14:57 | NUR ---
WOUND CARE CONSULTATION: THIS IS A 78 YEAR OLD, MALE PATIENT ADMITTED TO [facility] FOR SCROTAL CELLULITIS AND UTI. HEAD TO TOE SKIN ASSESSMENT PERFORMED. PATIENT HAS A RIGHT HEEL DEEP TISSUE INJURY MEASURING 0.5X0.5CM. HE HAS A RIGHT HALLUX COMBINATION OF DIABETIC AND PRESSURE RELATED ULCER MEASURING 1X2X0.1CM, STABLE ESCHAR. PATIENT STATED THAT THIS ULCER TO THE RIGHT HALLUX HAS BEEN PRESENT FOR APPROXIMATELY A YEAR. HE HAS A LEFT HEEL DEEP TISSUE INJURY MEASURING 2X2CM. PATIENT HAS SCROTAL AND RAI AREA DENUDED AREAS OF SKIN. HE HAS A SACRAL AND BILATERAL BUTTOCKS DEEP TISSUE INJURY MEASURING 8X8X0.1CM. LABS: WBC18.32 [id number] ALB2.8 MrdA8N3.0 URINE AND BLOOD CULTURE PENDING MEDICATIONS: FLUCONAZOLE IV RECOMMENDATIONS: -CONTINUE ALTERNATING LOW AIR LOSS MATTRESS. -CONTINUE BILATERAL HEEL PROTECTORS WITH PILLOW SUSPENSION. -TURN EVERY 2 HOURS AND PRN TO ASSIST IN OFFLOADING. -NURSING TO CLEAN RIGHT HEEL DTI, LEFT HEEL DTI, AND SACRAL/BILATERAL BUTTOCKS DTI WITH NORMAL SALINE, PAT DRY, APPLY VENELEX, THEN APPLY ALLEVYN FOAM; CHANGE DRESSINGS DAILY. -NURSING TO CLEAN RIGHT HALLUX PRESSURE ULCER WITH NORMAL SALINE, PAT DRY, APPLY BETADINE, 4X4 GAUZE, AND KERLIX; CHANGE DRESSING DAILY. -NURSING TO CLEAN SCROTAL AND RAI AREA WITH SOAP AND WATER, PAT DRY, APPLY NYSTATIN POWDER MIXED WITH VENELEX TO DENUDED AREAS OF SKIN BID. THANK YOU FOR THIS WOUND CARE CONSULT. Addendum: 09/20/19 at 1529 by Ebony Fierro RN Amended: Links added.
--- NOTE | 2019-09-20 15:03 | Consultation ---
DATE OF CONSULTATION: 09/20/2019 Cardiology consultation REQUESTING PHYSICIAN: Bob Flores MD. REASON FOR CONSULTATION: Cardiac evaluation. HISTORY OF PRESENT ILLNESS: This is a 78-year-old male with history of hypertension, hyperlipidemia, uncontrolled diabetes mellitus, and peripheral arterial disease, who presented with complaints of dysuria and generalized pain. In addition, he complained of scrotal pain and tenderness. He was found to have scrotal cellulitis and admitted for further care. While admitted, he had an episode of hypotension for which he was transferred to the ICU. He has since been transferred out. He denies any cardiac complaints. Denies any chest pain, shortness of breath, palpitations, edema, orthopnea, or PND. REVIEW OF SYSTEMS: Negative except as per HPI. PAST MEDICAL HISTORY: 1. Hypertension. 2. Hyperlipidemia. 3. Uncontrolled diabetes mellitus. 4. Peripheral arterial disease. PAST SURGICAL HISTORY: 1. Laminectomy. 2. AICD implantation. ALLERGIES: PLEASE SEE EMR. MEDICATIONS: Please see medication list. SOCIAL HISTORY: No tobacco, alcohol, or illicit drugs. FAMILY HISTORY: Pertinent for father with heart disease. PHYSICAL EXAMINATION: VITAL SIGNS: Temperature 98.1 degrees, pulse 63, respiratory rate 11, blood pressure 115/69, and oxygen saturation 100% on 2 L nasal cannula. GENERAL: An obese gentleman, awake and alert. HEENT: Normocephalic, atraumatic. Pupils equal. No scleral icterus. NECK: Supple. No thyromegaly or cervical lymphadenopathy. No carotid bruits. LUNGS: Clear to auscultation bilaterally. No wheezes or crackles. CARDIOVASCULAR: Normal rate. Regular rhythm. No murmur. Normal S1, S2. ABDOMEN: Soft, nontender. Nondistended. EXTREMITIES: No edema. NEUROLOGIC: Nonfocal exam. LABORATORY DATA: WBC 18.32, hemoglobin 9.4, hematocrit 29.4, and platelets 218. Sodium 137, potassium 3.5, chloride 103, CO2 of 27, BUN 18, and creatinine 1.89. IMPRESSION: 1. Scrotal cellulitis. 2. Dry gangrene of the right great toe with cellulitis. 3. Hypertension. 4. Hyperlipidemia. 5. Uncontrolled diabetes mellitus. 6. Peripheral arterial disease. 7. Status post automatic implantable cardioverter-defibrillator. 8. Acute kidney injury versus chronic kidney disease. RECOMMENDATIONS: Obtain echocardiogram and bilateral lower extremity arterial Doppler. The patient's device was checked. He has two years battery remaining, he is 98%, V paced, episodes of nonsustained ventricular tachycardia as well as one episode of supraventricular tachycardia were observed. Given the patient's hypotension, hold home antihypertensive therapy for now. We will gradually resume as blood pressure permits. Given his home medications, suspect he has a history of systolic heart failure, although the patient did not report such. Monitor volume status closely. Continue aspirin, Zetia and statin. Thank you for this consult. We will continue to follow. Charis uLgo MD ABS/MODL /[id number]
[2019-09-20] MEDS: FLUCONAZOLE 200 MG/100 ML 100 ML IV SCH (15:37)
[2019-09-20 16:44] LABS: CHOL/HDL RATIO 8.7 (3.9-4.7)
[2019-09-20] MEDS: ENOXAPARIN 30 MG/0.3 ML SYR SC SCH (17:18)
[2019-09-20] MEDS: NYSTATIN 15 GM POWDER UD BTL TOP SCH (17:19)
--- NOTE | 2019-09-20 17:30 | NUR ---
The patient is a 78-year-old, who came in with acute sepsis with hypertensive episode. Rapid response was called . The patient's blood pressure dropped to the 70s over 40s. The patient is unresponsive. Boluses of fluids were given. The patient felt better and blood pressure is improved. However, the patient was transferred to ICU for better monitoring and better care. currently out of icu doing better no complaints weak MEDICATIONS: At this time; amlodipine, atorvastatin, citalopram, [place], levothyroxine, Aldactone, and zolpidem as needed. The patient also gets Amaryl for diabetic control. Currently, he is also on an insulin drip for better control of blood sugars and the patient is also on 125 mL of normal saline for sepsis. OBJECTIVE: GENERAL: The patient is more awake and alert today. NAD VITAL SIGNS: Temperature is 99.2, T-max is 99.2, pulse of 67, blood pressure is 125/53, and pulse oximetry of 100% on 1 L of oxygen. HEENT: Normocephalic and atraumatic. The patient is groggy, but alert. CVS: S1 and S2 normal. Regular rate and rhythm at this time. ABDOMEN: Soft, nontender, and nondistended. EXTREMITIES: No clubbing. No cyanosis. Positive edema. INTEGUMENTARY SYSTEM: Right lower extremity with cellulitis of the great toe with peripheral artery disease and eschar in the great toe. Cellulitis of the scrotum has decreased, erythema has decreased on nystatin. The patient has some unstageable sacral wound is present as per nursing staff. LABORATORY VALUES: The patient's white count has increased up to 18,000, hemoglobin 9.4, hematocrit of 29.4, left shift is present. Chemistry shows sodium 137, potassium 3.5, BUN of 18, creatinine of 1.89, which has improved from 2.25. Glucose is running in the 105 to 190s. Coags are normal. Serology coronavirus is pending. ALT and AST normalized and troponin was 0.007 yesterday. Cardiac enzymes were normal. Lactic acid 1.7. A1c is 8. ASSESSMENT: SEPSIS RESOLVED 2. Acute renal failure, better . 3. Uncontrolled diabetes mellitus with increased amount of insulin. Plan, continue with current regimen of IV insulin drip. 4. Morbid obesity. 5. History of atrial fibrillation. 6. Peripheral arterial disease. 7. Generalized debility. 8. Sacral decubitus ulcer stage IV. cont local care
--- NOTE | 2019-09-20 17:37 | Diagnostic Imaging Report ---
EXAM: Renal Ultrasound INDICATION: COMPARISON: CT abdomen and pelvis dated 09/18/2019 TECHNIQUE: Transverse and longitudinal images of the kidneys and bladder were obtained. FINDINGS: Right Kidney: Size: 13.0 cm Echogenicity: Normal Parenchymal thickness: Normal Collecting system: No hydronephrosis Stones: None Cyst/Mass: 1.7 x 1.1 x 1.7 cm and 1.9 x 1.4 x 1.5 cm simple cortical cysts are seen in the interpole Left Kidney: Size: 13.8 cm Echogenicity: Normal Parenchymal thickness: Normal Collecting system: No hydronephrosis Stones: None Cyst/Mass: None Bladder: Normal no significant post void residual volume noted. IMPRESSION: Simple right renal cortical cysts as described. Signed by: Valerio Palmer MD on 09/20/2019 5:34 PM
[2019-09-20] MEDS: ZOLPIDEM TARTRATE 5 MG TAB PO SCH (21:05)
[2019-09-20] MEDS: ATORVASTATIN 20 MG TAB PO SCH (21:06)
[2019-09-20] MEDS: TAMSULOSIN HCL 0.4 MG CAP PO SCH (21:06)
[2019-09-20] MEDS ORDERED: INSULIN REGULAR, HUMAN 3ML VL 100 UNIT in SODIUM CHLORIDE 0.9% 100 ML IV SCH ×2 (21:15)
[2019-09-21] VITALS (8 sets, daily range): BP systolic 105–161; BP diastolic 43–91
[2019-09-21] MEDS: MORPHINE SULFATE INJ 4 MG/ML INJ 1ML IV PRN (02:14)
[2019-09-21] MEDS: HYDROCODONE/APAP 10MG-325MG TAB PO PRN (05:00)
[2019-09-21] MEDS: MEROPENEM 500MG/ NS 50ML 50 ML IV SCH ×2 (05:34→16:36)
[2019-09-21 05:47] LABS: BASOPHILS # (AUTO) 0.1 (0.0-0.1); BASOPHILS % 0.4 % (0.0-1.0); EOSINOPHILS # (AUTO) 0.1 (0.0-0.4); EOSINOPHILS % 0.5 % (0.0-6.0); HEMATOCRIT 28.1 % (38.2-49.6); LYMPHOCYTES # (AUTO) 1.9 (1.0-3.2); LYMPHOCYTES % 14.6 % (18.0-39.1); MEAN CORPUSCULAR HEMOGLOBIN 29.5 pg (28-32); MEAN CORPUSCULAR VOLUME 92.1 fL (81-99); MONOCYTES # (AUTO) 1.7 (0.2-0.8); MONOCYTES % 12.7 % (4.4-11.3); NEUTROPHILS # (AUTO) 9.2 (2.1-6.9); NEUTROPHILS % 69.3 % (38.7-80.0); PLATELET COUNT 215 x10e3/uL (140-360); RED BLOOD COUNT 3.05 x10e6/uL (4.3-5.7); RED CELL DISTRIBUTION WIDTH 14.4 % (11.7-14.4)
[2019-09-21 06:42] LABS: ALBUMIN 2.6 g/dL (3.5-5.0); ALBUMIN/GLOBULIN RATIO 0.7 (0.8-2.0); ANION GAP 13.5 mmol/L (8-16); CALCIUM 7.5 mg/dL (8.4-10.2); CREATININE, SERUM 1.38 mg/dL (0.72-1.25); POTASSIUM 3.5 mmol/L (3.5-5.1)
[2019-09-21] MEDS: LEVOTHYROXINE SODIUM 125 MCG TAB PO SCH (06:49)
--- NOTE | 2019-09-21 07:00 | NUR ---
BEDSIDE SHIFT REPORT FROM TOWER HAND RN. PT DENIES NEEDS AT THIS TIME.
--- NOTE | 2019-09-21 07:10 | Diagnostic Imaging Report ---
Examination: Single AP view of the chest. COMPARISON: AP chest 09/19/2019 INDICATION: Scrotal cellulitis, CHF IMPRESSION: 1. Lines and Tubes: Stable left upper chest multilead cardiac device. Stable right central line. 2. Lungs are grossly clear. No consolidation or effusion. 3. Cardiomediastinal silhouette is normal. Pulmonary vasculature is normal. 4. No acute bony abnormalities. Signed by: Dr. Ben Lira M.D. on 09/21/2019 7:07 AM
--- NOTE | 2019-09-21 07:46 | Progress Note ---
DATE: SUBJECTIVE: The patient is a 78-year-old male who came in with severe sepsis with scrotal cellulitis and also with unstageable decubitus ulcer and right toe gangrene with cellulitis. Currently, patient is sleepy. Did receive some morphine about an hour ago. Arousable. OBJECTIVE: VITAL SIGNS: Temperature 99.2, pulse of 73, respirations of 18, blood pressure is 126/62, pulse oximetry of 98%. HEENT: Normocephalic, atraumatic. Pupils are reactive. CVS: S1, S2 normal. Regular rate and rhythm. ABDOMEN: Soft, nontender. Scrotal tenderness present. EXTREMITIES: Also pain in the lower extremities as per patient, also tenderness in the great toe. LABORATORY VALUES: White count has come down to 13,000, hemoglobin of 9.0, hematocrit 28.1. Sodium 139, potassium of 3.5, BUN of 16, creatinine is 1.38, glucose is running in the 137s. Serology, coronavirus is still pending. Microbiology: Urine culture grew some yeast species. Otherwise, blood cultures are negative. No growth. Renal ultrasound was done yesterday showed no significant post void residual volume and kidney has some simple cortical cysts, otherwise within normal limits. ASSESSMENT: Mr. Shahriar Odonnell with: 1. Scrotal cellulitis. 2. Dry gangrene. 3. Uncontrolled diabetes mellitus. 4. History of atrial fibrillation with defibrillator. 5. Peripheral artery disease. 6. Morbid obesity. 7. Hyperlipidemia. PLAN: Continue current management with Merrem. Continue monitoring the patient's white count. Creatinine functions have come back to being normal and his acute renal failure is better. Ultrasound of the kidneys was also good. No complaints at this time. The patient is downgraded to [facility]. We will continue to monitor the patient. 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 MD DENIS Tesfaye/MODL /[id number]
[2019-09-21] MEDS: MAGNESIUM OXIDE 400 MG TAB PO SCH (08:34)
[2019-09-21] MEDS: NYSTATIN 100,000 UNITS/GM CRM 30GM TUBE TOP SCH ×2 (08:34→16:36)
[2019-09-21] MEDS: EZETIMIBE 10 MG TAB PO SCH (08:34)
[2019-09-21] MEDS: MULTIVITAMINS/MINERALS TAB PO SCH (08:34)
[2019-09-21] MEDS: ZINC SULFATE 220 MG CAP PO SCH (08:34)
[2019-09-21] MEDS: BALSAM PERU/CASTOR OIL 60 GM OINT...G. TP SCH (08:34)
[2019-09-21] MEDS: GLIMEPIRIDE 2 MG TAB PO SCH (08:34)
[2019-09-21] MEDS: CITALOPRAM HYDROBROMIDE 20 MG TAB PO SCH (08:34)
[2019-09-21] MEDS: NYSTATIN 15 GM POWDER UD BTL TOP SCH ×2 (08:34→16:36)
[2019-09-21] MEDS: ASPIRIN 81 MG CHEW TAB PO SCH (08:34)
[2019-09-21] MEDS: SODIUM CHLORIDE 0.9% 1000ML 1,000 ML IV SCH (09:14)
--- NOTE | 2019-09-21 10:11 | Progress Note ---
DATE: SUBJECTIVE: The patient is seen and evaluated. Available labs and notes reviewed. Discussed with the patient. The patient states that he is hallucinating today. Otherwise, no nausea, vomiting, fever, chills, chest pain, shortness of breath, headache, or rash. PHYSICAL EXAMINATION: VITAL SIGNS: Temperature is 98.9, pulse is 69, respiration 12, blood pressure 129/51. The patient is afebrile so far this admission. GENERAL: Alert and oriented, in no acute distress. Responds appropriately. CV: S1, S2. CHEST: Equal expansion. Clear to auscultation. No acute distress. ABDOMEN: Soft. Nontender. No distention. HEENT: Moist. No pallor. No JVD. EXTREMITIES: Multiple dry wounds on his feet with the right 1st toe tip dry gangrene. Scrotum noted, there is no obvious sign of cellulitis also with the sacral wound. MEDICATIONS: Medication list reviewed. From ID point of view, the patient is on Merrem and Diflucan. LABORATORY STUDIES: White count of 13.19 improved from 18.32, hemoglobin 9, platelet 215. Sodium 139, potassium 3.5, creatinine 1.38: Coronavirus PCR is pending from 09/18/2019. MICROBIOLOGY: Blood cultures negative. Urine culture showed yeast, greater than 100,000 CFU/mL. RADIOLOGY STUDIES: CT abdomen and pelvis showed possible cystitis with bilateral perinephric fat stranding, possibly secondary to renal insufficiency. The patient also showed to have chronic partial bladder outlet obstruction due to prostatomegaly, mild scrotal edema. Renal ultrasound showed small right renal cortical cyst. Chest x-ray showed lungs are grossly clear without consolidation or effusion. ASSESSMENT: 1. Renal insufficiency, acute, improved. 2. Uncontrolled diabetes. 3. Atrial fibrillation. 4. Peripheral artery disease. 5. Hallucination. 6. Wounds. 7. Funguria. PLAN: Continue with Merrem and Diflucan, continue with wound care. Monitor dry wounds on his feet and sacral wound. PT/OT. Discussed with Dr. Zacarias in detail. Please refer to chart for more information. Dictated by Valerio Vasquez PA-C (Al) Inez Zacarais MD /MODL :31:54 /[id number]
[2019-09-21] MEDS: FLUCONAZOLE 200 MG/100 ML 100 ML IV SCH (14:19)
--- NOTE | 2019-09-21 16:32 | Progress Note ---
DATE: 09/21/2019 Cardiology Progress Note SUBJECTIVE: The patient denies chest pain or shortness of breath. OBJECTIVE: VITAL SIGNS: Temperature 98.6 degrees, pulse 68, respiratory rate is 13, blood pressure 105/43, and oxygen saturation 100% on room air. GENERAL: Elderly man, in no acute distress, awake and alert. LUNGS: Clear to auscultation bilaterally. No wheezes or crackles. CARDIOVASCULAR: Normal rate. Regular rhythm. No murmur. Normal S1, S2. ABDOMEN: Soft, nontender. EXTREMITIES: No edema. CARDIAC MEDICATIONS: 1. Ezetimibe 10 mg p.o. daily. 2. Aspirin 81 mg p.o. daily. 3. Levothyroxine 125 mcg p.o. daily. 4. Atorvastatin 40 mg p.o. at bedtime. LABORATORY DATA: WBCs 13.19, hemoglobin 9, hematocrit 28.1, and platelets 215. Sodium 139, potassium 3.5, chloride 105, CO2 of 24, BUN 16, and creatinine 1.38. Telemetry was personally reviewed and interpreted revealing ventricular-paced rhythm. IMPRESSION: 1. Scrotal cellulitis. 2. Dry gangrene of the right great toe with cellulitis. 3. Hypertension. 4. Hyperlipidemia. 5. Uncontrolled diabetes mellitus. 6. Peripheral arterial disease. 7. Status post automatic implantable cardioverter-defibrillator. 8. Acute kidney injury versus chronic kidney disease. RECOMMENDATIONS: Echocardiogram and bilateral lower extremities arterial Doppler are pending. We will review images once available. AICD was checked with two years battery remaining and 98% ventricular pacing, normal function. Continue to hold antihypertensive therapy. We will need to resume SILVIA and beta corenlius once the blood pressure permits. Monitor volume status closely. Continue current cardiac medications otherwise. Antibiotics per Infectious Disease. Thank you for this consult. We will continue to follow. Charis Lugo MD ABS/MODL /[id number]
[2019-09-21] MEDS: ENOXAPARIN 30 MG/0.3 ML SYR SC SCH (16:36)
[2019-09-21] MEDS: ZOLPIDEM TARTRATE 5 MG TAB PO SCH (21:16)
[2019-09-21] MEDS: ATORVASTATIN 20 MG TAB PO SCH (21:16)
[2019-09-21] MEDS: TAMSULOSIN HCL 0.4 MG CAP PO SCH (21:16)
[2019-09-22] VITALS (8 sets, daily range): BP systolic 114–155; BP diastolic 53–89
[2019-09-22] MEDS: SODIUM CHLORIDE 0.9% 1000ML 1,000 ML IV SCH (02:00)
[2019-09-22 04:43] LABS: BASOPHILS # (AUTO) 0.1 (0.0-0.1); BASOPHILS % 0.4 % (0.0-1.0); EOSINOPHILS # (AUTO) 0.1 (0.0-0.4); EOSINOPHILS % 0.5 % (0.0-6.0); HEMATOCRIT 28.6 % (38.2-49.6); HEMOGLOBIN 9.5 g/dL (14.0-18.0); LYMPHOCYTES % 15.4 % (18.0-39.1); MEAN CORPUSCULAR HEMOGLOBIN 29.6 pg (28-32); MEAN CORPUSCULAR HGB CONC 33.2 g/dL (31-35); MONOCYTES # (AUTO) 1.6 (0.2-0.8); MONOCYTES % 12.6 % (4.4-11.3); NEUTROPHILS # (AUTO) 8.8 (2.1-6.9); NEUTROPHILS % 68.5 % (38.7-80.0); PLATELET COUNT 241 x10e3/uL (140-360); RED BLOOD COUNT 3.21 x10e6/uL (4.3-5.7); RED CELL DISTRIBUTION WIDTH 14.2 % (11.7-14.4)
[2019-09-22 04:47] LABS: MEAN CORPUSCULAR VOLUME 89.1 fL (81-99)
[2019-09-22 04:59] LABS: ANION GAP 12.3 mmol/L (8-16); BLOOD UREA NITROGEN 9 mg/dL (7-26); BUN/CREATININE RATIO 9 (6-25); CALCIUM 7.8 mg/dL (8.4-10.2); CARBON DIOXIDE 26 mmol/L (22-29); CHLORIDE 103 mmol/L (98-107); CREATININE, SERUM 1.05 mg/dL (0.72-1.25); EST GLOMERULAR FILTRATION RATE > 60 ML/MIN (60-); GLUCOSE 113 mg/dL (74-118); POTASSIUM 3.3 mmol/L (3.5-5.1); SODIUM 138 mmol/L (136-145)
[2019-09-22] MEDS: MEROPENEM 500MG/ NS 50ML 50 ML IV SCH ×2 (05:16→18:47)
[2019-09-22] MEDS: LEVOTHYROXINE SODIUM 125 MCG TAB PO SCH (06:20)
[2019-09-22] MEDS ORDERED: DEXTROSE 50% SYRINGE 50 ML IV PRN (07:30)
[2019-09-22] MEDS ORDERED: POTASSIUM CHLORIDE 20MEQ/100ML 100 ML IV ONE ×2 (08:00→10:30)
--- NOTE | 2019-09-22 08:37 | NUR ---
Called patient's left a message to call me Mr. Odonnell verbally aggressive I attempted to feed him he refused.
--- NOTE | 2019-09-22 09:00 | NUR ---
Patient refusing for nursing to touch his feet or change his dressings, reporting that he is in a lot of pain and he does not want to be touched.
--- NOTE | 2019-09-22 09:00 | Progress Note ---
DATE: SUBJECTIVE: A 78-year-old comes in with sepsis. The patient had a hypertensive episode, was in the ICU, transferred out, currently still weak, still sleepy. No chest pain. No shortness of breath. MEDICATIONS: Medication list reviewed. The patient is currently on insulin drip and IV fluids at 75 mL an hour. Currently, the patient is also on Merrem for scrotal cellulitis. OBJECTIVE: VITAL SIGNS: Temperature is 98.3, pulse of 76, respirations of 12, blood pressure is 151/70. HEENT: Normocephalic and atraumatic. Pupils are reactive. The patient is morbidly obese. CVS: S1 and S2 distant. Regular rate and rhythm. ABDOMEN: Soft, nontender, nondistended. EXTREMITIES: No clubbing. No cyanosis. Positive for edema. LABORATORY VALUES: White count is down to 12,000 today, hemoglobin of 9.5, and hematocrit of 28.6. Chemistries; sodium of 138, potassium of 3.3. Coags are normal. SEROLOGY: Coronavirus nondetected. MICROBIOLOGY: Species in urine culture. Blood cultures have been negative. ASSESSMENT: Mr. Shahriar Odonnell with: 1. Scrotal cellulitis. 2. Uncontrolled diabetes. 3. Atrial fibrillation. 4. Debility with delirium. 5. Sacral wound. 6. Funguria. PLAN: Continue with nystatin and Merrem. The patient's renal function is improved. Renal is on consult and also Cardiology for his transient atrial fibrillation. We will continue to monitor the patient. Further recommendation per clinical course. He will need long-term therapy and/or SNF. Volume status will be monitored closely. We can cut down the fluids and echocardiogram ordered on the . We will review the echo today. Bob Flores MD ASJ/MODL /[id number]
--- NOTE | 2019-09-22 10:10 | Progress Note ---
DATE: SUBJECTIVE: The patient is seen and evaluated with staff/nurse and nurse aide in the room. REVIEW OF SYSTEMS: The patient wants his neuropathy medication. No nausea, vomiting, fever, chills, chest pain, or shortness of breath. The patient says that he is achy pretty much everywhere, seems to be alert and oriented. PHYSICAL EXAMINATION: VITAL SIGNS: Temperature is 98.3, pulse is 72, respiration 15, and blood pressure 151/70. GENERAL: Alert and oriented. No acute distress. CV: S1 and S2. CHEST: Equal expansion. Clear to auscultation. No acute distress. ABDOMEN: Soft, obese, and nontender. Bowel sounds positive. HEENT: Moist. No pallor. No JVD. EXTREMITIES: Multiple wounds including lower extremities and sacral. The patient is achy today and does not allow wound examination today. MEDICATIONS: Medication list reviewed and from ID point of view, the patient is on meropenem and Diflucan. LABORATORY STUDIES: White count of 12.83, improved from 13.19, hemoglobin 9.5, and platelet 241. Sodium 138, potassium 3.2, and creatinine is 1.05. Serology; coronavirus PCR not detected on 09/18/2019. MICROBIOLOGY: Blood culture negative so far x4 sets. Urine showed Kalie albicans, greater than 100,000. IMAGING: Status post echo showing 45% to 50% left ventricular ejection fraction. Also had arterial Doppler, showing evidence of significant arterial stenosis bilaterally on lower extremities. ASSESSMENT AND PLAN: 1. Sepsis on admission. 2. Urinary tract infection-urine culture showed Kalie albicans. 3. Peripheral neuropathy. 4. Peripheral vascular disease. 5. Hypothyroidism. 6. Diabetes. 7. Obesity. 8. Recent cellulitis of scrotum, no obvious acute finding, as I examined that yesterday. Does not allow physical exam of scrotum today. The patient is achy. 9. The patient remains on IV antibiotics. It was changed from Zosyn to Merrem. 10. Acute renal insufficiency-improved. Creatinine is within normal limit now. Continue with Diflucan and Merrem at this point. Monitor the patient clinically and follow with the labs. Continue with wound care. Please refer to chart for more information. Dictated by Valerio Vasquez PA-C (Al) MD RIMMA Alan/VINICIUS /[id number]
[2019-09-22] MEDS: CITALOPRAM HYDROBROMIDE 20 MG TAB PO SCH (10:31)
[2019-09-22] MEDS: ASPIRIN 81 MG CHEW TAB PO SCH (10:31)
[2019-09-22] MEDS: GLIMEPIRIDE 2 MG TAB PO SCH (10:33)
--- NOTE | 2019-09-22 10:45 | NUR ---
Called Dr. Donald Flores made aware patient is yelling " I need my neuropathy pain pill!! do not touch my legs" informed Dr. Flores that gabapentin not on patient's profile, received orders to resume gabapentin and monitor patient's blood pressure very closely.
[2019-09-22] MEDS: INSULIN LISPRO 100 UNIT/1 ML 3ML VIAL SQ SCH ×3 (11:30→21:00)
[2019-09-22] MEDS: EZETIMIBE 10 MG TAB PO SCH (11:36)
[2019-09-22] MEDS: MAGNESIUM OXIDE 400 MG TAB PO SCH (11:36)
[2019-09-22] MEDS: MULTIVITAMINS/MINERALS TAB PO SCH (12:38)
[2019-09-22] MEDS: ZINC SULFATE 220 MG CAP PO SCH (12:38)
[2019-09-22] MEDS: GABAPENTIN 400 MG CAP PO SCH ×2 (12:39→20:42)
--- NOTE | 2019-09-22 13:59 | NUR ---
SPOKE WITH PT WHOM WANTS ME TO CALL HIS , CALLED AND LEFT VOICE MAIL TO RETURN CALL.
[2019-09-22] MEDS: NYSTATIN 100,000 UNITS/GM CRM 30GM TUBE TOP SCH ×2 (14:25→18:47)
[2019-09-22] MEDS: NYSTATIN 15 GM POWDER UD BTL TOP SCH ×2 (14:25→18:47)
[2019-09-22] MEDS: BALSAM PERU/CASTOR OIL 60 GM OINT...G. TP SCH (14:25)
[2019-09-22] MEDS: FLUCONAZOLE 200 MG/100 ML 100 ML IV SCH (14:40)
--- NOTE | 2019-09-22 16:22 | NUR ---
Called Dr. Charis Cabrera made aware that Dr. Butler note stated he wanted to hold of on Carvedilol and Norvasc, and to d/c SILVIA inhibitors, per Dr. Cabrera she will restart Carvedilol, but give a lower dose.
[2019-09-22] MEDS ORDERED: CARVEDILOL 12.5 MG TAB PO SCH (17:00)
[2019-09-22] MEDS: CARVEDILOL 12.5 MG TAB PO SCH (18:47)
[2019-09-22] MEDS: HYDROCODONE/APAP 10MG-325MG TAB PO PRN (18:50)
[2019-09-22] MEDS: ENOXAPARIN 30 MG/0.3 ML SYR SC SCH (18:52)
--- NOTE | 2019-09-22 18:52 | Progress Note ---
DATE: 09/22/2019 Cardiology Progress Note SUBJECTIVE: The patient denies chest pain or shortness of breath. OBJECTIVE: VITAL SIGNS: Temperature 98.1 degrees, pulse 75, respiratory rate 17, blood pressure 148/89, oxygen saturation 96% on room air. GENERAL: Awake and alert, in no acute distress elderly man. LUNGS: Clear to auscultation bilaterally. No wheezes or crackles. CARDIOVASCULAR: Normal rate. Regular rhythm. No murmur. Normal S1 and S2. ABDOMEN: Soft, nontender. EXTREMITIES: No edema. CARDIAC MEDICATIONS: 1. Zetia 10 mg p.o. daily. 2. Aspirin 81 mg p.o. daily. 3. Levothyroxine 125 mcg p.o. daily. 4. Atorvastatin 40 mg p.o. at bedtime. LABORATORY DATA: WBC 12.83, hemoglobin 9.5, hematocrit 28.6, platelets 241. Sodium 138, potassium 3.3, chloride 103, CO2 of 26, BUN 9, creatinine 1.05. IMPRESSION: 1. Scrotal cellulitis. 2. Dry gangrene of the right great toe with cellulitis. 3. Hypertension. 4. Hyperlipidemia. 5. Uncontrolled diabetes mellitus. 6. Peripheral arterial disease. 7. Status post automatic implantable cardioverter-defibrillator. 8. Acute kidney injury, resolved. RECOMMENDATIONS: Echocardiogram demonstrates moderately impaired systolic function. As blood pressure has improved, we will resume his outpatient carvedilol. Device check was performed earlier this admission with two years battery remaining. He is pacing 98% of the time with normal device function. Monitor volume status closely. Continue current cardiac medications otherwise. Bilateral extremity arterial Doppler was reviewed. He does have disease in bilateral posterior tibial arteries. However, biphasic flow is present in the right anterior tibial and dorsalis pedis arteries which should provide sufficient blood flow for wound healing. We will monitor wound closely. Conservative medical therapy at this time. Thank you for this consult. We will continue to follow. Charis Lugo MD ABS/MODL /[id number] MTDD
--- NOTE | 2019-09-22 20:00 | NUR ---
Received change of shift report from AM nurse.
[2019-09-22] MEDS: TAMSULOSIN HCL 0.4 MG CAP PO SCH (20:41)
[2019-09-22] MEDS: ZOLPIDEM TARTRATE 5 MG TAB PO SCH (20:41)
[2019-09-22] MEDS: ATORVASTATIN 20 MG TAB PO SCH (20:42)
[2019-09-23] VITALS (11 sets, daily range): BP systolic 101–144; BP diastolic 40–82
--- NOTE | 2019-09-23 01:13 | NUR ---
Patient in bed in supine position. Denies pain at this time. Dressing noted and change by AM nurse. BS at 160 given insulin to upper left arm. Patient tolerated well.
[2019-09-23] MEDS: SODIUM CHLORIDE 0.9% 1000ML 1,000 ML IV SCH ×4 (01:57→22:40)
[2019-09-23] MEDS: MEROPENEM 500MG/ NS 50ML 50 ML IV SCH ×3 (05:00→21:22)
[2019-09-23] MEDS: LEVOTHYROXINE SODIUM 125 MCG TAB PO SCH (05:17)
--- NOTE | 2019-09-23 06:51 | NUR ---
Patient resting quitly at this time. Continue monitor.
[2019-09-23] MEDS: GLIMEPIRIDE 2 MG TAB PO SCH (08:45)
[2019-09-23] MEDS: GABAPENTIN 400 MG CAP PO SCH ×3 (08:45→20:13)
[2019-09-23] MEDS: ASPIRIN 81 MG CHEW TAB PO SCH (08:45)
[2019-09-23] MEDS: ZINC SULFATE 220 MG CAP PO SCH (08:45)
[2019-09-23] MEDS: MAGNESIUM OXIDE 400 MG TAB PO SCH (08:45)
[2019-09-23] MEDS: MULTIVITAMINS/MINERALS TAB PO SCH (08:45)
[2019-09-23] MEDS: EZETIMIBE 10 MG TAB PO SCH (08:45)
[2019-09-23] MEDS: CITALOPRAM HYDROBROMIDE 20 MG TAB PO SCH (08:45)
[2019-09-23] MEDS ORDERED: LISINOPRIL 10 MG TAB PO SCH (09:00)
[2019-09-23 09:05] LABS: BASOPHILS # (AUTO) 0.1 (0.0-0.1); BASOPHILS % 0.5 % (0.0-1.0); EOSINOPHILS # (AUTO) 0.1 (0.0-0.4); EOSINOPHILS % 0.8 % (0.0-6.0); HEMATOCRIT 28.2 % (38.2-49.6); HEMOGLOBIN 9.1 g/dL (14.0-18.0); LYMPHOCYTES # (AUTO) 2.4 (1.0-3.2); LYMPHOCYTES % 23.5 % (18.0-39.1); MEAN CORPUSCULAR HEMOGLOBIN 29.2 pg (28-32); MEAN CORPUSCULAR HGB CONC 32.3 g/dL (31-35); MEAN CORPUSCULAR VOLUME 90.4 fL (81-99); MONOCYTES # (AUTO) 1.2 (0.2-0.8); MONOCYTES % 11.7 % (4.4-11.3); NEUTROPHILS # (AUTO) 6.1 (2.1-6.9); NEUTROPHILS % 59.1 % (38.7-80.0); PLATELET COUNT 241 x10e3/uL (140-360); RED BLOOD COUNT 3.12 x10e6/uL (4.3-5.7); RED CELL DISTRIBUTION WIDTH 14.5 % (11.7-14.4)
[2019-09-23] MEDS: INSULIN LISPRO 100 UNIT/1 ML 3ML VIAL SQ SCH ×4 (09:22→21:16)
[2019-09-23] MEDS: CARVEDILOL 12.5 MG TAB PO SCH (09:22)
[2019-09-23 09:45] LABS: ANION GAP 9.4 mmol/L (8-16); BLOOD UREA NITROGEN 8 mg/dL (7-26); BUN/CREATININE RATIO 8 (6-25); CALCIUM 7.8 mg/dL (8.4-10.2); CARBON DIOXIDE 28 mmol/L (22-29); CHLORIDE 104 mmol/L (98-107); CREATININE, SERUM 1.02 mg/dL (0.72-1.25); EST GLOMERULAR FILTRATION RATE > 60 ML/MIN (60-); GLUCOSE 173 mg/dL (74-118); POTASSIUM 3.4 mmol/L (3.5-5.1); SODIUM 138 mmol/L (136-145)
--- NOTE | 2019-09-23 10:21 | Progress Note ---
DATE: SUBJECTIVE: The patient is seen and evaluated. Available labs and notes reviewed. Discussed with Dr. Zacarias in details. Please refer to chart for my information. REVIEW OF SYSTEMS: Feels better today. Pain is better controlled. No nausea, vomiting, fever, chills, chest pain, or shortness of breath. MEDICATIONS: Reviewed. From ID point of view, the patient is on meropenem and Diflucan. LABORATORY STUDIES: White count improved to 10.37, hemoglobin 9.1, and platelet 241. BMP is pending actually from today. Serology: Coronavirus PCR not detected on 09/18/2019. MICROBIOLOGY: No new microbiology studies available. RADIOLOGY STUDIES: No new radiology studies available. PHYSICAL EXAMINATION: VITAL SIGNS: Temperature is 98.4, pulse is 63, respirations 12, and blood pressure 134/59. GENERAL: Alert and oriented, cannot remember where he is, but he knows the date. He knows the year. Overall seems to be alert and oriented. CV: S1-S2. CHEST: Equal expansion. Clear to auscultation. No acute distress. ABDOMEN: Soft. Obese. Nontender. No distention. HEENT: Moist. No pallor. No JVD. EXTREMITIES: Multiple wounds. Most of the lower extremity wounds are ischemic. No active pus drainage noted. ASSESSMENT AND PLAN: 1. Sepsis on admission. 2. Urinary tract infection with Kalie albicans. 3. Peripheral vascular disease. 4. Multiple wounds. 5. Peripheral neuropathy. 6. Diabetes. 7. Obesity. 8. Continue with Merrem and Diflucan. Renal function is improving with the last creatinine level of 1.05. Re-dose Merrem to q.8 hours from q.12 hours. Leukocytosis is resolved. Continue to monitor the patient clinically. Follow with the labs. Discussed with Dr. Zacarias. Please refer to chart for more information. Dictated by Valerio Vasquez PA-C (Al) Inez Zacarias MD /MODL /[id number]
--- NOTE | 2019-09-23 10:38 | NUR ---
SPOKE WITH WHOM STATES SHE SPOKE WITH THE HEALTH DEPT AND WOULD LIKE TO RETURN TO FOCUSED CARE BUT RIGHT WONT RISK HIM GETTING SICKER. CHOSE [facility]. FILED IN CHART, FAXED CLINICALS TO [phone]
[2019-09-23] MEDS: NYSTATIN 100,000 UNITS/GM CRM 30GM TUBE TOP SCH ×2 (11:26→19:34)
[2019-09-23] MEDS: NYSTATIN 15 GM POWDER UD BTL TOP SCH ×2 (11:26→19:34)
[2019-09-23] MEDS: BALSAM PERU/CASTOR OIL 60 GM OINT...G. TP SCH (11:26)
--- NOTE | 2019-09-23 15:32 | NUR ---
CALLED [facility], AUTH IS STILL PENDING
--- NOTE | 2019-09-23 15:45 | Progress Note ---
DATE: SUBJECTIVE: The patient is a 78-year-old gentleman, who came in with acute sepsis, scrotal cellulitis, unstageable decubitus ulcer, hypertension, hyperglycemia, and episode of hypotension with septic shock. The patient is doing better. Did have a physical therapy walking today. The patient was lethargic and was stuporous and did sit back to the wheelchair. OBJECTIVE: VITAL SIGNS: Today's temperature 98.4, pulse of 63, respirations of 12, blood pressure is 134/59, and pulse oximetry of 92% on room air. HEENT: Normocephalic and atraumatic. Pupils are reactive. CVS: S1 and S2 normal. Regular rate and rhythm. ABDOMEN: Nontender, nondistended. LUNGS: Decreased air entry. EXTREMITIES: No clubbing. No cyanosis. Positive for edema. LABORATORY VALUES: Today's white count is 10,000, hemoglobin of 9.1, and hematocrit 28.2. Chemistry shows sodium 138, potassium 3.4, BUN of 8, and creatinine of 1.02. INR is 1.03. MICROBIOLOGY: Urine culture grew ishaan, otherwise normal. Blood cultures so far no growth for the last 72 hours. IMAGING STUDIES: Chest x-ray shows no acute bony abnormalities. Lungs are grossly clear. No consolidation, no effusion. That is on the . ASSESSMENT: Mr. Shahriar Odonnell with, 1. Sepsis, present on admission. 2. Urinary tract infection with Ishaan albicans on culture. 3. Acute respiratory distress. 4. Hypertensive episode. 5. Generalized debility. 6. Sacral wound, decubitus, unstageable and also right toe gangrene. Also, scrotal cellulitis . The patient also has some morbid obesity. CURRENT MEDICATIONS: Merrem and Diflucan per Infectious Disease. PLAN: Continue monitor the patient. Consult with SNF has been done. The patient will be transferred to SNF when bed is available. Continue with physical therapy. Continue with monitoring the patient closely. MD DENIS Tesfaye/BROOKL /[id number]
--- NOTE | 2019-09-23 16:00 | Progress Note ---
DATE: 09/23/2019 Cardiology Progress Note SUBJECTIVE: The patient denies chest pain or shortness of breath. OBJECTIVE: VITAL SIGNS: Temperature 98.4 degrees, pulse 63, respiratory rate 12, blood pressure 134/59, oxygen saturation 92% on room air. GENERAL: Obese gentleman, in no acute distress. Awake and alert elderly man. LUNGS: Clear to auscultation bilaterally. No wheezes or crackles. CARDIOVASCULAR: Normal rate. Regular rhythm. No murmur. Normal S1 and S2. ABDOMEN: Soft and nontender. EXTREMITIES: No edema. CARDIAC MEDICATIONS: 1. Carvedilol 6.25 mg p.o. b.i.d. 2. Zetia 10 p.o. daily. 3. Aspirin 81 mg p.o. daily. 4. Levothyroxine 125 mcg p.o. daily. 5. Atorvastatin 40 mg p.o. at bedtime. LABORATORY DATA: WBC 10.37, hemoglobin 9.1, hematocrit 28.2, platelets 241. Sodium 138, potassium 3.4, chloride 104, CO2 of 28, BUN 8, and creatinine 1.02. TELEMETRY: Personally reviewed and interpreted revealing AV paced rhythm. IMPRESSION: 1. Scrotal cellulitis. 2. 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 3. Hypertension. 4. Hyperlipidemia. 5. Uncontrolled diabetes mellitus. 6. Peripheral arterial disease. 7. Status post AICD. 8. Acute kidney injury, resolved. RECOMMENDATIONS: Echocardiogram demonstrated moderately impaired systolic function. As blood pressure has improved, we have restarted carvedilol at a lower dose. If blood pressure remains stable, we will attempt to resume SILVIA inhibitor. Monitor volume status closely. Continue current cardiac medications. Bilateral lower extremity arterial Doppler does suggest disease in his bilateral posterior tibial arteries. However, he has biphasic flow in the right anterior tibial and dorsalis pedis arteries which should provide sufficient blood flow for wound healing of his right great toe. Monitor wound closely. Conservative medical therapy at this time. Antibiotics per Infectious Disease. Thank you for this consult. We will continue to follow. Charis Lugo MD ABS/MODL /[id number]
--- NOTE | 2019-09-23 16:00 | NUR ---
Dr. Butler rounding to see patient, made aware physical therapy was working with patient, while assisting to wheel chair patient became hypotensive and stooped , I informed Dr. Madisyn Butler patient was put back on Coreg 6.25 mg PO. Received orders stop Coreg for now and give 40MEQ potassium PO x1 dose.
[2019-09-23] MEDS: FLUCONAZOLE 200 MG/100 ML 100 ML IV SCH (16:14)
[2019-09-23] MEDS ORDERED: POTASSIUM CHLORIDE 10MEQ EA PO SCH (16:30)
--- NOTE | 2019-09-23 17:06 | Progress Note ---
DATE: SUBJECTIVE: The patient feels better. He has less somnolence. He is not complaining of dyspnea or chest pain. PHYSICAL EXAMINATION: VITAL SIGNS: The blood pressure is 134/59 and saturation is 92%. He is on a nasal cannula. HEENT: Shows no facial swelling or erythema. CARDIAC: Reveals regular rate and rhythm with normal S1 and S2. LUNGS: Auscultation of lungs reveals decreased breath sounds at the bases. There is no wheezing. ABDOMEN: Soft and nontender. There is no rebound or guarding. EXTREMITIES: Shows no leg edema or calf tenderness. There is no cyanosis or clubbing. SKIN: Shows no rashes. NEUROLOGICAL: Shows no focal abnormalities. LABORATORY DATA: White blood cell count is 10.3 and the hemoglobin is 9.1. The platelet count is 241. The BUN to creatinine ratio is normal. The other electrolytes are within normal limits. The blood sugars are 170 to 180. IMPRESSION: 1. [id number]-[id number] renal failure. 2. Urinary tract infection with sepsis, present on admission. 3. Sacral decubitus wound. 4. Chronic systolic congestive heart failure. 5. Atrial fibrillation. 6. Diabetes. 7. Peripheral vascular disease with dry gangrene. 8. Kalie and cellulitis of the scrotum. PLAN: 1. Continue current antibiotics. 2. Continue to monitor and control blood sugars. 3. Continue oxygen. 4. Continue current cardiac regimen. Kwame hCopra MD [facility]/MODL /[id number]
[2019-09-23] MEDS: ENOXAPARIN 30 MG/0.3 ML SYR SC SCH (17:18)
[2019-09-23] MEDS: ATORVASTATIN 20 MG TAB PO SCH (20:13)
[2019-09-23] MEDS: TAMSULOSIN HCL 0.4 MG CAP PO SCH (20:13)
[2019-09-23] MEDS: HYDROCODONE/APAP 10MG-325MG TAB PO PRN (20:14)
[2019-09-23] MEDS: ZOLPIDEM TARTRATE 5 MG TAB PO SCH (21:00)
--- NOTE | 2019-09-23 22:01 | NUR ---
pt received. no ss of distress noted. no co pain at time. tele monitor in place. no ss of distress noted. will cont to follow poc. call chance within reach.
[2019-09-24] MEDS: MORPHINE SULFATE INJ 4 MG/ML INJ 1ML IV PRN (04:35)
[2019-09-24 04:40] VITALS: BP 126/78
[2019-09-24] MEDS: MEROPENEM 500MG/ NS 50ML 50 ML IV SCH ×2 (05:09→14:30)
[2019-09-24] MEDS: LEVOTHYROXINE SODIUM 125 MCG TAB PO SCH (05:09)
--- NOTE | 2019-09-24 05:47 | NUR ---
diaper saturated. pt cleaned and repositioned. no ss of distress noted. call chance within reach.
[2019-09-24 08:11] VITALS: BP 126/78
[2019-09-24 08:15] VITALS: BP 145/80
[2019-09-24] MEDS ORDERED: POTASSIUM CHLORIDE 20 MEQ TAB CR PO PRN (08:15)
[2019-09-24] MEDS: INSULIN LISPRO 100 UNIT/1 ML 3ML VIAL SQ SCH ×2 (08:25→11:20)
[2019-09-24 08:42] LABS: BASOPHILS # (AUTO) 0.1 (0.0-0.1); BASOPHILS % 0.5 % (0.0-1.0); EOSINOPHILS # (AUTO) 0.1 (0.0-0.4); EOSINOPHILS % 0.6 % (0.0-6.0); HEMATOCRIT 28.5 % (38.2-49.6); LYMPHOCYTES # (AUTO) 2.8 (1.0-3.2); MEAN CORPUSCULAR HEMOGLOBIN 29.1 pg (28-32); MEAN CORPUSCULAR HGB CONC 31.6 g/dL (31-35); MEAN CORPUSCULAR VOLUME 92.2 fL (81-99); MONOCYTES # (AUTO) 1.2 (0.2-0.8); MONOCYTES % 11.8 % (4.4-11.3); NEUTROPHILS # (AUTO) 5.2 (2.1-6.9); NEUTROPHILS % 53.1 % (38.7-80.0); PLATELET COUNT 244 x10e3/uL (140-360); RED BLOOD COUNT 3.09 x10e6/uL (4.3-5.7); RED CELL DISTRIBUTION WIDTH 14.5 % (11.7-14.4)
[2019-09-24 09:09] LABS: ALANINE AMINOTRANSFERASE 58 IU/L (0-55); ALBUMIN 2.5 g/dL (3.5-5.0); ALBUMIN/GLOBULIN RATIO 0.7 (0.8-2.0); ALKALINE PHOSPHATASE 60 IU/L (40-150); ANION GAP 10.6 mmol/L (8-16); BLOOD UREA NITROGEN 7 mg/dL (7-26); BUN/CREATININE RATIO 8 (6-25); CALCIUM 7.9 mg/dL (8.4-10.2); CARBON DIOXIDE 27 mmol/L (22-29); CHLORIDE 105 mmol/L (98-107); EST GLOMERULAR FILTRATION RATE > 60 ML/MIN (60-); GLUCOSE 118 mg/dL (74-118); POTASSIUM 3.6 mmol/L (3.5-5.1); SODIUM 139 mmol/L (136-145)
[2019-09-24] MEDS: ASPIRIN 81 MG CHEW TAB PO SCH (09:57)
[2019-09-24] MEDS: GABAPENTIN 400 MG CAP PO SCH (09:57)
[2019-09-24] MEDS: MAGNESIUM OXIDE 400 MG TAB PO SCH (09:57)
[2019-09-24] MEDS: BALSAM PERU/CASTOR OIL 60 GM OINT...G. TP SCH (09:57)
[2019-09-24] MEDS: GLIMEPIRIDE 2 MG TAB PO SCH (09:57)
[2019-09-24] MEDS: MULTIVITAMINS/MINERALS TAB PO SCH (09:57)
[2019-09-24] MEDS: ZINC SULFATE 220 MG CAP PO SCH (09:57)
[2019-09-24] MEDS: NYSTATIN 100,000 UNITS/GM CRM 30GM TUBE TOP SCH (09:57)
[2019-09-24] MEDS: EZETIMIBE 10 MG TAB PO SCH (09:57)
[2019-09-24] MEDS: NYSTATIN 15 GM POWDER UD BTL TOP SCH (09:57)
[2019-09-24] MEDS: CITALOPRAM HYDROBROMIDE 20 MG TAB PO SCH (09:57)
--- NOTE | 2019-09-24 10:08 | Progress Note ---
DATE: SUBJECTIVE: The patient is seen and evaluated. Available labs and notes reviewed. Discussed with staff. REVIEW OF SYSTEMS: No nausea, vomiting, fever, chills, chest pain, or shortness of breath. Feels better and he wants more antibiotics. PHYSICAL EXAMINATION: VITAL SIGNS: Temperature 97.8, pulse 63, respirations 20, and blood pressure 145/80. GENERAL: Alert and oriented, very pleasant, comfortable in bed, pain controlled. No shortness of breath. CV: S1 and S2. CHEST: Equal expansion, decreased breath sounds, in no acute distress. ABDOMEN: Soft, obese, nontender. HEENT: Moist. No pallor. No JVD. EXTREMITIES: Multiple wounds of lower extremities and sacrum. Lower extremity wounds seem to be ischemic in nature and sacral wound is on local care. MEDICATIONS: As far as Infectious Disease point of view, the patient is on meropenem and fluconazole. LABORATORY STUDIES: White count of 9.75, improved from 18.32; hemoglobin 9; and platelet 244. Sodium, potassium, and creatinine recheck from today pending. Previous creatinine was 1.02. SEROLOGY: Coronavirus PCR from 09/18/2019, not detected. MICROBIOLOGY: No new microbiology studies available. RADIOLOGY: No new radiology studies available. ASSESSMENT AND PLAN: 1. Sepsis on admission. 2. Urinary tract infection with yeast-Kalie albicans. 3. Peripheral vascular disease. 4. Peripheral neuropathy. 5. Multiple wounds. 6. Diabetes. Continue with meropenem and Diflucan, meropenem was re-dosed yesterday secondary to improvement in creatinine level. Plan noted. Significant progress. Further management of this patient is based on daily findings and laboratory and physical examination. Please refer to chart for more information. Discussed with Dr. Zacarias in details. Dictated by Valerio Vasquez PA-C (Al) Inez Zacarias MD /MODL /[id number]
--- NOTE | 2019-09-24 10:59 | NUR ---
USP FACILITY DISCHARGE INFORMATION PATIENT HAS BEEN ACCEPTED TO: [facility] [address] [place] [address] ACCEPTING CHARACTER IMPERSONATOR: Konstantin GARCIA MD: Dr. Majano ROOM: 101 NURSE CALL REPORT TO: [phone] IMM SIGNED AND OBTAINED (if applicable): THE FOLLOWING DOCUMENTS MUST ACCOMPANY PATIENT FOR TRANSFER: copy of chart. transfer PHUONG BENSON COPIED CHART: community health advocate RTF: completed and given to ALEXIS Valles [id number] DNR: n/a
[2019-09-24] MEDS ORDERED: FUROSEMIDE INJ 10 MG/ML 2 ML VIAL IV SCH (11:45)
[2019-09-24] MEDS ORDERED: LISINOPRIL 2.5 MG TAB PO SCH (11:45)
[2019-09-24 12:38] VITALS: BP 165/61
--- NOTE | 2019-09-24 12:59 | Progress Note ---
DATE: 09/24/2019 Cardiology Progress Note. SUBJECTIVE: The patient denies chest pain or shortness of breath. OBJECTIVE: VITAL SIGNS: Temperature 97.8 degrees, pulse 62, respiratory rate 20, blood pressure 155/80, oxygen saturation 98% on room air. GENERAL: Obese gentleman, in no acute distress. Awake and alert. LUNGS: Clear to auscultation bilaterally. No wheezes or crackles. CARDIOVASCULAR: Normal rate. Regular rhythm. No murmur. Normal S1 and S2. ABDOMEN : Soft, nontender. EXTREMITIES: No edema. CARDIAC MEDICATIONS: 1. Zetia 10 mg p.o. daily. 2. Aspirin 81 mg p.o. daily. 3. Levothyroxine 125 mcg p.o. daily. 4. Atorvastatin 40 mg p.o. at bedtime. LABORATORY DATA: WBC 9.75, hemoglobin 9, hematocrit 28.5, platelets 244. Sodium 139, potassium 3.6, chloride 105, CO2 of 27, BUN 7, and creatinine 0.9. TELEMETRY: Personally reviewed and interpreted, revealing AV paced rhythm. IMPRESSION: 1. Scrotal cellulitis. 2. Dry gangrene of the right great toe with cellulitis. 3. Hypertension. 4. Hyperlipidemia. 5. Uncontrolled diabetes mellitus. 6. Peripheral arterial disease. 7. Status post ICD. 8. Acute kidney injury, resolved. RECOMMENDATIONS: Echocardiogram demonstrated moderately impaired systolic function. As blood pressure has improved, carvedilol has been restarted, resume low-dose SILVIA inhibitor today. Monitor volume status closely. Continue current cardiac medications, otherwise bilateral lower extremity arterial Doppler does suggest disease in bilateral posterior tibial arteries. However, he has biphasic flow in the right anterior tibial and dorsalis pedis arteries which should provide sufficient blood flow for wound healing of his right great toe. Monitor wound closely. Conservative medical therapy at this time. Antibiotics per Infectious Disease. Thank you for this consult. We will continue to follow. Charis Lugo MD [facility]/MODL /[id number]
[2019-09-24] MEDS: FLUCONAZOLE 200 MG/100 ML 100 ML IV SCH (15:00)
[2019-09-24] MEDS ORDERED: FUROSEMIDE INJ 10 MG/ML 4 ML VIAL ONE (16:01)
--- NOTE | 2019-09-24 16:03 | NUR ---
pt stable. report was called for trans to [facility]. per dr franky ocampo, recving pt there, leave IJ in place.
[2019-09-24 16:24] VITALS: BP 120/70
--- NOTE | 2019-09-24 16:50 | Progress Note ---
DATE: SUBJECTIVE: The patient feels better. He has no fever. OBJECTIVE: VITAL SIGNS: The blood pressure is 165/61, saturation is 98% on 2 L. HEENT: Shows no facial swelling or erythema. CARDIAC: Reveals regular rate and rhythm with normal S1 and S2. LUNGS: Auscultation of lungs reveals decreased breath sounds at the bases. There is no wheezing. ABDOMEN: Soft nontender. There is no rebound or guarding. EXTREMITIES: Shows no leg edema or calf tenderness. There is some dry gangrene on the toe. LABORATORY DATA: White blood cell count is 9.75 and hemoglobin is 9. The platelet count is 244,000. BUN to creatinine ratio is normal. Other electrolytes are within normal limits. Albumin is 2.5. ASSESSMENT: 1. Acute on chronic systolic congestive heart failure. 2. Atrial fibrillation. 3. Acute kidney injury that has improved. 4. Diabetes. 5. Peripheral vascular disease with dry gangrene. 6. Kalie and cellulitis of the scrotum. 7. Urinary tract with sepsis, present on admission. PLAN: 1. Complete antibiotics. 2. Continue current cardiac regimen. 3. Physical therapy. Kwame Chopra MD [facility]/MODL /[id number]
--- NOTE | 2019-09-27 16:04 | Diagnostic Imaging Report ---
PROCEDURE: Non-tunneled central venous catheter placement Procedural Personnel Attending physician(s): Sunny Fellow physician(s): None Resident physician(s): None Advanced practice provider(s): None Pre-procedure diagnosis: Poor venous access Post-procedure diagnosis: Same Indication: Administration of intravenous medications Additional clinical history: None Complications: No immediate complications. IMPRESSION: Insertion of right-sided non-tunneled triple-lumen temporary central venous catheter. PROCEDURE SUMMARY: - Venous access with ultrasound guidance - Non-tunneled central venous catheter insertion - Additional procedure(s): None PROCEDURE DETAILS: Pre-procedure Consent: Informed consent for the procedure including risks, benefits and alternatives was obtained and time-out was performed prior to the procedure. Preparation (MIPS): The site was prepared and draped using all elements of maximal sterile barrier technique including sterile gloves, sterile gown, cap, mask, large sterile sheet, sterile ultrasound probe cover, hand hygiene and cutaneous antisepsis with 2% chlorhexidine. Medical reason for site preparation exception (MIPS): Not applicable Anesthesia/sedation Level of anesthesia/sedation: No sedation Access Local anesthesia was administered. The vessel was sonographically evaluated and determined to be patent. Real time ultrasound was used to visualize needle entry into the vessel and a permanent image was stored. Vein accessed: Internal jugular vein Access technique: Micropuncture set with 21 gauge needle Catheter placement The access site was dilated and the catheter was placed into the vein over a wire. A sterile dressing was applied. Catheter placed: Bard Catheter size (Mexican): 7 Catheter length (cm): 16 Catheter flush: Heparin (1000 units/mL) Catheter securement technique: Non-absorbable suture Contrast Contrast agent: None Radiation Dose None Additional Details Additional description of procedure: None Equipment details: None Specimens removed: None Estimated blood loss (mL): Less than 10 Standardized report: [email or web address] Attestation Signer name: Sandra Pennington MD I attest that I was present for the entire procedure. I reviewed the stored images and agree with the report as written. Signed by: Sandra Pennington MD on 09/27/2019 4:01 PM
== END 2019-09-24 17:19 | DRG 871 ==
LOC: ER 17:32 → MED/SURG2 22:16 → ICU 09-19 12:11 → IMCU 09-20 10:59
PROVIDERS: ADMIT Family Medicine; ATTEND Family Medicine
DX: A41.9 Sepsis, unspecified organism (principal); L89.154 Pressure ulcer of sacral region, stage 4; R65.21 Severe sepsis with septic shock; I50.23 Acute on chronic systolic (congestive) heart failure; N17.9 Acute kidney failure, unspecified; E11.52 Type 2 diabetes mellitus with diabetic peripheral angiopathy with gangrene; I96 Gangrene, not elsewhere classified; I13.0 Hypertensive heart and chronic kidney disease with heart failure and stage 1 through stage 4 chronic kidney disease, or unspecified chronic kidney disease; I50.22 Chronic systolic (congestive) heart failure; B37.49 Other urogenital candidiasis; R65.20 Severe sepsis without septic shock; Z95.810 Presence of automatic (implantable) cardiac defibrillator; I48.91 Unspecified atrial fibrillation; E03.9 Hypothyroidism, unspecified; E78.5 Hyperlipidemia, unspecified; Z87.891 Personal history of nicotine dependence; Z09 Encounter for follow-up examination after completed treatment for conditions other than malignant neoplasm; Z86.73 Personal history of transient ischemic attack (TIA), and cerebral infarction without residual deficits; Z88.5 Allergy status to narcotic agent; Z88.0 Allergy status to penicillin; E66.01 Morbid (severe) obesity due to excess calories; N49.2 Inflammatory disorders of scrotum; E11.42 Type 2 diabetes mellitus with diabetic polyneuropathy; E11.21 Type 2 diabetes mellitus with diabetic nephropathy; E11.22 Type 2 diabetes mellitus with diabetic chronic kidney disease; B37.2 Candidiasis of skin and nail; E11.65 Type 2 diabetes mellitus with hyperglycemia; N18.3 Chronic kidney disease, stage 3 (moderate); Z91.81 History of falling; Z79.4 Long term (current) use of insulin
CPT/HCPCS: 36415; 36556; 71045; 74176; 74470; 76770; 76937; 80048; 80053; 80061; 81001; 82550; 82553; 82948; 83036; 83605; 83735; 83880; 84484; 84550; 85025; 85610; 85730; 87040; 87086; 87635; 93005; 93306; 93925; 94664; 96367; 96372; 96376; 97139; 99251; 99284; C1751; C1769; J1450; J1650; J1815; J1817; J1940; J2270; J2405; J3480; J7030; J7050

== ENCOUNTER 2020-02-18 17:04 | Observation (INO) | payer MEDICARE ==
[~2020-02-18] VITALS: Ht 182.9 cm; Wt 115.7 kg
[2020-02-18] MEDS ORDERED: ONDANSETRON HCL INJ 2MG/ML 2ML 2 MG/ML VIAL IV STA (17:33)
[2020-02-18] MEDS ORDERED: SODIUM CHLORIDE 0.9% 1000ML 1,000 ML IV STA (17:33)
[2020-02-18] MEDS ORDERED: PANTOPRAZOLE 40 MG 10ML VIAL IV ONE (18:00)
[2020-02-18 18:12] LABS: INR 1.02; PROTHROMBIN TIME 13.9 seconds (11.9-14.5)
[2020-02-18 18:13] LABS: PARTIAL THROMBOPLASTIN TIME 31.9 seconds (23.8-35.5)
--- NOTE | 2020-02-18 18:14 | Emergency Department Note ---
History of Present Illnes History of Present Illness Chief Complaint: General Medicine Complaints History of Present Illness This is a 79 year old male presents to the ED for n/v x1 with coffee ground emesis . 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 Arrival Mode: mercedes EMS Treatment ELECTRONIC PUBLISHING SPECIALIST: IV Erp Technical Lead Required: No Onset (how long ago): minute(s) Radiation: Reports non-radiation Severity: mild Onset quality: sudden Duration (how long): hour(s) Timing of current episode: constant Progression: partially resolved Chronicity: new Context: Denies recent illness, Denies recent surgery, Denies recent immobilization, Denies recent travel, Denies trauma/injury, Denies new medications, Denies hx of DVT/PE, Denies non-compliance w/ medications, Denies other Relieving factors: none Exacerbating factors: none Associated symptoms: Reports nausea/vomiting; Denies denies other symptoms, Denies confusion, Denies chest pain, Denies cough, Denies diaphoresis, Denies fever/chills, Denies headaches, Denies loss of appetite, Denies malaise, Denies rash, Denies seizure, Denies shortness of breath, Denies syncope, Denies weakness, Denies other Past Medical/Family History Physician Review I have reviewed the patient's past medical and family history. Any updates have been documented here. Past Medical History Recent Fever: No Clinical Suspicion of Infectio: No New/Unexplained Change in Ment: No Past Medical History: Hypertension, Diabetes, CHF, CVA, A-Fib, Hypothyroidism, Hyperlipedemia Other Medical History: [place] CHRONIC DIABETIC ULCERS Past Surgical History: Pacer/AICD, Back Surgery Other Surgery: Previous debridements to feet. Other Last Tetanus: OOD Review of Systems Review of Systems Constitutional: Reports no symptoms EENTM: Reports no symptoms Cardiovascular: Reports no symptoms Respiratory: Reports no symptoms Gastrointestinal: Reports nausea, Reports vomiting Genitourinary: Reports no symptoms Musculoskeletal: Reports no symptoms Integumentary: Reports no symptoms Neurological: Reports no symptoms Psychological: Reports no symptoms Endocrine: Reports no symptoms Hematological/Lymphatic: Reports no symptoms Physical Exam Related Data Allergies: Coded Allergies: codeine (Verified Allergy, Intermediate, rash, 09/18/19) "many years ago" penicillin (Verified Allergy, Mild, Rash, 09/08/18) Triage Vital Signs Vital Signs Date Time Temp Pulse Resp B/P (MAP) Pulse Ox O2 Delivery O2 Flow Rate FiO2 02/18/20 17:34 98.5 90 27 129/72 100 Room Air Vital signs reviewed: Yes Physical Exam CONSTITUTIONAL Constitutional: Present well-developed, Present well-nourished HENT HENT: Present normocephalic, Present atraumatic, Present oropharynx clear/moist, Present nose normal HENT L/R: Present left ext ear normal, Present right ext ear normal EYES Eyes: Reports PERRL, Reports conjunctivae normal NECK Neck: Present ROM normal PULMONARY Pulmonary: Present effort normal, Present breath sounds normal CARDIOVASCULAR Cardiovascular: Present regular rhythm, Present heart sounds normal, Present capillary refill normal, Present normal rate GASTROINTESTINAL Abdominal: Present soft, Present nontender, Present bowel sounds normal GENITOURINARY Genitourinary: Present exam deferred SKIN Skin: Present warm, Present dry, Present other (pale, sacral decubitus ulcer) MUSCULOSKELETAL Musculoskeletal: Present ROM normal NEUROLOGICAL Neurological: Present alert, Present oriented x 3, Present no gross motor or sensory deficits PSYCHOLOGICAL Psychological: Present mood/affect normal, Present judgement normal Results Laboratory Laboratory Laboratory Tests Test 02/18/20 17:47 Lab results reviewed: Yes Laboratory comments Laboratory Tests Test 02/18/20 17:47 White Blood Count 10.68 x10e3/uL (4.8-10.8) Red Blood Count 3.81 x10e6/uL (4.3-5.7) Hemoglobin 10.4 g/dL (14.0-18.0) Hematocrit 31.9 % (38.2-49.6) Mean Corpuscular Volume 83.7 fL (81-99) Mean Corpuscular Hemoglobin 27.3 pg (28-32) Mean Corpuscular Hemoglobin Concent 32.6 g/dL (31-35) Red Cell Distribution Width 15.9 % (11.7-14.4) Platelet Count 270 x10e3/uL (140-360) Neutrophils (%) (Auto) 72.5 % (38.7-80.0) Lymphocytes (%) (Auto) 20.9 % (18.0-39.1) Monocytes (%) (Auto) 5.6 % (4.4-11.3) Eosinophils (%) (Auto) 0.0 % (0.0-6.0) Basophils (%) (Auto) 0.2 % (0.0-1.0) Neutrophils # (Auto) 7.7 (2.1-6.9) Lymphocytes # (Auto) 2.2 (1.0-3.2) Monocytes # (Auto) 0.6 (0.2-0.8) Eosinophils # (Auto) 0.0 (0.0-0.4) Basophils # (Auto) 0.0 (0.0-0.1) Absolute Immature Granulocyte (auto 0.09 x10e3/uL (0-0.1) Prothrombin Time 13.9 seconds (11.9-14.5) Prothromb Time International Ratio 1.02 Activated Partial Thromboplast Time 31.9 seconds (23.8-35.5) Urine Color Yellow (YELLOW) Urine Clarity Sl cloudy (CLEAR) Urine pH 7 (5 - 7) Urine Specific [place] >=1.030 (1.010-1.025) Urine Protein 2+ (NEGATIVE) Urine Glucose (UA) Negative (NEGATIVE) Urine Ketones 2+ (NEGATIVE) Urine Blood Small (NEGATIVE) Urine Nitrite Negative (NEGATIVE) Urine Bilirubin Negative (NEGATIVE) Urine Urobilinogen 0.2 mg/dL (0.2 - 1) Urine Leukocyte Esterase Small (NEGATIVE) Urine RBC 6-10 /HPF (0-5) Urine WBC 6-10 /HPF (0-5) Urine Epithelial Cells Rare /LPF (NONE) Urine Bacteria Moderate /HPF (NONE) Sodium Level 136 mmol/L (136-145) Potassium Level 3.7 mmol/L (3.5-5.1) Chloride Level 94 mmol/L (98-107) Carbon Dioxide Level 24 mmol/L (22-29) Anion Gap 21.7 mmol/L (8-16) Blood Urea Nitrogen 10 mg/dL (7-26) Creatinine 0.80 mg/dL (0.72-1.25) Estimat Glomerular Filtration Rate > 60 ML/MIN (60-) BUN/Creatinine Ratio 13 (6-25) Glucose Level 213 mg/dL (74-118) Calcium Level 8.4 mg/dL (8.4-10.2) Magnesium Level 1.0 MG/DL (1.3-2.1) Total Bilirubin 0.5 mg/dL (0.2-1.2) Aspartate Amino Transf (AST/SGOT) 18 IU/L (5-34) Alanine Aminotransferase (ALT/SGPT) 33 IU/L (0-55) Alkaline Phosphatase 59 IU/L (40-150) Creatine Kinase 14 IU/L (30-200) Creatine Kinase MB 1.20 ng/mL (0-5.0) Troponin I 0.020 ng/mL (0-0.300) B-Type Natriuretic Peptide 149.0 pg/mL (0-100) Total Protein 7.8 g/dL (6.5-8.1) Albumin 3.1 g/dL (3.5-5.0) Globulin 4.7 g/dL (2.3-3.5) Albumin/Globulin Ratio 0.7 (0.8-2.0) Procedures 12 Lead ECG Interpretation ECG Interpretation : ECG: ECG 1 Erp Technical Lead: Interpreted by ED physician Date: Feb 18, 2020 Time: 18:14 Prior ECG tracings: reviewed Pacin% capture Assessment & Plan Medical Decision Making MDM Diff dx : GIB, gastritis, ischemic colitis Assessment & Plan Final Impression: (1) Hypomagnesemia (2) Nausea & vomiting (3) Coffee ground emesis Depart Disposition: ADMITTED Last Vital Signs Date Time Temp Pulse Resp B/P (MAP) Pulse Ox O2 Delivery O2 Flow Rate FiO2 02/18/20 18:05 83 22 138/60 98 Room Air 02/18/20 17:34 98.5 Home Meds Reported Medications Citalopram Hydrobromide (CITALOPRAM HBR) 20 Mg Tablet, 20 MG PO DAILY, TAB 09/05/18 Aspirin (ASPIR-LOW) 81 Mg Tablet.dr, 1 TAB PO DAILY 09/05/18 Ondansetron Hcl* (ZOFRAN*) 4 Mg Tablet, 4 MG PO Q6H PRN for NAUSEA 09/05/18 Magnesium Oxide (MAGNESIUM OXIDE) 400 Mg Tablet, 400 MG PO DAILY, TAB 09/05/18 Multivitamin (MULTI-VITAMIN DAILY) 1 Each Tablet, 1 TAB PO DAILY 09/05/18 Zinc Sulfate (ZINC SULFATE) 220 Mg Tablet, 220 MG PO DAILY, #30 CAP 09/05/18 Atorvastatin Calcium (LIPITOR) 20 Mg Tablet, 40 MG HS, #30 TAB 09/05/18 Zolpidem Tartrate (AMBIEN) 10 Mg Tablet, 10 MG PO HS PRN for INSOMNIA, #30 TAB 09/05/18 Diphenhydramine Hcl (BENADRYL) 25 Mg Capsule, 25 MG PO Q6H PRN for ITCHING 09/05/18 Gabapentin (GABAPENTIN) 400 Mg Capsule, 800 MG PO TID, #30 CAP 09/05/18 Tramadol Hcl* (ULTRAM 50MG*) 50 Mg Tab, 50 MG PO Q6H PRN for pain, TAB 09/05/18 Hydrocodone Bit/Acetaminophen (NORCO 5-325 TABLET) 1 Each Tablet, 1 EACH PO Q6H PRN for Mild Pain (1-3) or Fever>100.8, TAB 09/05/18 Glimepiride (GLIMEPIRIDE) 2 Mg Tablet, 1 MG PO DAILY, TAB 09/05/18 Carvedilol (CARVEDILOL) 12.5 Mg Tablet, 12.5 MG PO BID, #60 TAB hold for sbp <110 or HR <60 09/05/18 [Humalog Sliding] No Conflict Check 35/40/40 SLIDING SCALE 11/10/13 Insulin Glargine (LANTUS 3ML PEN) 100 Units/1 Ml Inj, 65 UNITS SQ ACS 11/10/13 Insulin Glargine (LANTUS 3ML PEN) 100 Units/1 Ml Inj, 35 UNITS SQ ACB 11/10/13 Acetaminophen/Hydrocodone* (NORCO 10MG-325MG*) 1 Ea Tab, 1 TAB PO TID PRN for PAIN, TAB 11/10/13 Zolpidem Tartrate (AMBIEN) 5 Mg Tablet, 10 MG PO BEDTIME, #30 TAB 11/10/13 Salmeterol Xinaf/Fluticasone* (ADVAIR 500/50*) 1 Ea Aerp, 1 PUFF INH PRN, INH 11/10/13 Fluticasone Propionate (FLONASE) 16 Gm [place].susp, 16 GM NA PRN for ALLERGY, BOTTLE 11/10/13 Alprazolam (ALPRAZOLAM) 1 Mg Tablet, 1 MG PO TID PRN for ANXIETY, #30 TAB 11/10/13 Atorvastatin Calcium (ATORVASTATIN CALCIUM) 10 Mg Tablet, 40 MG PO BEDTIME, #30 TAB 11/10/13 Ezetimibe (ZETIA) 10 Mg Tablet, 10 MG PO BEDTIME, #30 TAB 11/10/13 Furosemide (FUROSEMIDE) 40 Mg Tablet, 40 MG PO Daily, #30 TAB 11/10/13 Amlodipine Besylate (AMLODIPINE BESYLATE) 5 Mg Tablet, 5 MG PO BID, #30 TAB 11/10/13 Spironolactone (SPIRONOLACTONE) 25 Mg Tablet, 25 MG PO DAILY, #60 TAB 11/10/13 [Metformin] No Conflict Check, 1000 MG PO BID 11/10/13 Quinapril Hcl (QUINAPRIL HCL) 20 Mg Tablet, 40 MG PO DAILY, #30 TAB 11/10/13 Levothyroxine Sodium (SYNTHROID) 125 Mcg Tab, 125 MCG PO DAILY@0600, #30 TAB 11/10/13 [Vit B 12] No Conflict Check, 1000 MG PO DAILY 11/10/13 [Vit D 1999] No Conflict Check 11/10/13 Medications in the ED Pantoprazole Sodium 80 mg ONCE ONCE IV Last administered on 02/18/20at 18:12; Admin Dose 80 MG; Start 02/18/20 at 18:00; Stop 02/18/20 at 18:01; Status DC Ondansetron HCl 4 mg ONCE STAT IV Last administered on 02/18/20at 18:12; Admin Dose 4 MG; Start 02/18/20 at 17:33; Stop 02/18/20 at 17:37; Status DC Sodium Chloride 1,000 ml @ 0 mls/hr Q0M STAT IV Last administered on 02/18/20at 18:12; Admin Dose 1,000 MLS/HR; Start 02/18/20 at 17:33; Stop 02/18/20 at 17:37; Status DC GRACE HERRERA DO Feb 18, 2020 18:14
[2020-02-18 18:21] LABS: ALANINE AMINOTRANSFERASE 33 IU/L (0-55); ALBUMIN 3.1 g/dL (3.5-5.0); ALBUMIN/GLOBULIN RATIO 0.7 (0.8-2.0); ALKALINE PHOSPHATASE 59 IU/L (40-150); ANION GAP 21.7 mmol/L (8-16); BLOOD UREA NITROGEN 10 mg/dL (7-26); BUN/CREATININE RATIO 13 (6-25); CALCIUM 8.4 mg/dL (8.4-10.2); CARBON DIOXIDE 24 mmol/L (22-29); CHLORIDE 94 mmol/L (98-107); CREATINE KINASE 14 IU/L (30-200); EST GLOMERULAR FILTRATION RATE > 60 ML/MIN (60-); GLUCOSE 213 mg/dL (74-118); POTASSIUM 3.7 mmol/L (3.5-5.1); SODIUM 136 mmol/L (136-145)
[2020-02-18 18:23] LABS: BASOPHILS % 0.2 % (0.0-1.0); HEMATOCRIT 31.9 % (38.2-49.6); HEMOGLOBIN 10.4 g/dL (14.0-18.0); LYMPHOCYTES # (AUTO) 2.2 (1.0-3.2); LYMPHOCYTES % 20.9 % (18.0-39.1); MEAN CORPUSCULAR HEMOGLOBIN 27.3 pg (28-32); MEAN CORPUSCULAR HGB CONC 32.6 g/dL (31-35); MEAN CORPUSCULAR VOLUME 83.7 fL (81-99); MONOCYTES # (AUTO) 0.6 (0.2-0.8); MONOCYTES % 5.6 % (4.4-11.3); NEUTROPHILS # (AUTO) 7.7 (2.1-6.9); NEUTROPHILS % 72.5 % (38.7-80.0); PLATELET COUNT 270 x10e3/uL (140-360); RED BLOOD COUNT 3.81 x10e6/uL (4.3-5.7); RED CELL DISTRIBUTION WIDTH 15.9 % (11.7-14.4)
--- NOTE | 2020-02-18 18:23 | NUR ---
PATIENT'S SKIN ASSESSMENT REVEALED LARGE STAGE 4 SACRAL DECUBITIS ULCER, APPROXIMATELY [id number] WITH TUNNELING NOTED. PT ALSO NOTED TO HAVE LARGE SHEARING WOUND NOTED TO RIGHT UPPER BACK. PER EMS REPORT, PT WAS STUCK TO FOAM MATTRESS AT [facility]. EMS STATED THAT MATTRESS DID NOT HAVE A SHEET PRESENT, SO WHEN THEY TRANSFERRED PT FROM BED TO STRETCHER AT [facility], HIS SKIN WAS STUCK TO THE MATTRESS AND PEELED OFF. PT ALSO HAS GANGRENOUS WOUNDS TO HIS RIGHT PLANTAR ASPECT OF FOOT, WELL ON LATERAL ASPECT OF RIGHT FOOT. ER MD, DR. NEWSOME AWARE.
[2020-02-18 18:24] LABS: CLARITY,URINE SL CLOUDY (CLEAR); COLOR,URINE YELLOW (YELLOW); LEUKOCYTE ESTERASE ,URINE SMALL (NEGATIVE)
[2020-02-18 18:25] LABS: BILIRUBIN,URINE NEGATIVE (NEGATIVE); KETONES,URINE 2+ (NEGATIVE); NITRITE,URINE NEGATIVE (NEGATIVE); PROTEIN,URINE DIPSTICK 2+ (NEGATIVE); URINE UROBILINOGEN 0.2 mg/dL (0.2 - 1)
[2020-02-18 18:29] LABS: BACTERIA,URINE MODERATE /HPF; EPITHELIAL CELLS,URINE RARE /LPF
[2020-02-18] MEDS ORDERED: SODIUM CHLORIDE 0.9% 1000ML 1,000 ML IV SCH (20:15)
[2020-02-18] MEDS ORDERED: ONDANSETRON HCL INJ 2MG/ML 2ML 2 MG/ML VIAL IV PRN (20:30)
[2020-02-18] MEDS ORDERED: MORPHINE SULFATE INJ 4 MG/ML INJ 1ML IV PRN (20:30)
[2020-02-18] MEDS ORDERED: PROMETHAZINE 12.5MG/ NACL 0.9% 12.5 MG/50 ML BAG IV PRN (20:45)
[2020-02-18] MEDS ORDERED: MAGNESIUM SULFATE 2GM/50ML 50 ML IV ONE (20:45)
--- NOTE | 2020-02-18 20:45 | NUR ---
patient is a new admit from the Emergency room. patient is awake and talking. patient has telemetry box attached. patient has been transferred into the bed. bed is in the lowest position and call light is within reach. will continue to monitor patient.
[2020-02-18] MEDS ORDERED: MAGNESIUM SULF 1GRAM/DEXTROSE 100 ML IV ONE (21:00)
[2020-02-18] MEDS ORDERED: PROMETHAZINE 12.5MG/ NACL 0.9% 50 ML IV PRN (21:00)
--- NOTE | 2020-02-18 21:35 | Diagnostic Imaging Report ---
EXAMINATION: CHEST SINGLE (PORTABLE) INDICATION: ^PICC LINE VERIFICATION ^[id number] ^2051 ^Y COMPARISON: Chest x-ray on 09/21/2019. FINDINGS: The bilateral costophrenic sulcus are excluded from [id number]. TUBES and LINES: Right PICC which terminates at the cavoatrial junction. Cardiac pacemaker is unchanged. LUNGS: Normal lung volumes. There is diffuse interstitial prominence. No consolidations. PLEURA: No pleural effusion or pneumothorax. HEART AND MEDIASTINUM: The cardiomediastinal silhouette is unremarkable. There is atherosclerotic calcification of the aortic knob. BONES AND SOFT TISSUES: Degenerative changes in the spine and shoulders. Soft tissues are unremarkable. UPPER ABDOMEN: No free air under the diaphragm. IMPRESSION: 1. Right PICC which terminates at the cavoatrial junction. 2. Diffuse prominent interstitial lung markings which may represent chronic changes versus reactive airway disease or bronchitis in the proper clinical context. Signed by: Claudia Thomas MD on 02/18/2020 9:32 PM
[2020-02-18] MEDS ORDERED: SODIUM CHLORIDE 0.9% 250ML 250 ML ONE (21:49)
--- NOTE | 2020-02-18 22:30 | NUR ---
GI doctor is on unit rounding on patient. new orders received for patient. will continue to monitor patient.
[2020-02-19] VITALS (8 sets, daily range): BP systolic 111–139; BP diastolic 52–68
[2020-02-19] MEDS: METOCLOPRAMIDE HCL 10 MG/2ML VIAL IV SCH ×5 (00:11→23:39)
[2020-02-19] MEDS: PANTOPRAZOL 40MG/SOD CHL 0.9% 250 ML IV SCH ×2 (00:11→23:39)
[2020-02-19 05:41] LABS: BASOPHILS % 0.2 % (0.0-1.0); EOSINOPHILS % 0.1 % (0.0-6.0); HEMATOCRIT 29.6 % (38.2-49.6); HEMOGLOBIN 9.6 g/dL (14.0-18.0); LYMPHOCYTES # (AUTO) 3.1 (1.0-3.2); LYMPHOCYTES % 19.5 % (18.0-39.1); MEAN CORPUSCULAR HEMOGLOBIN 27.5 pg (28-32); MEAN CORPUSCULAR HGB CONC 32.4 g/dL (31-35); MEAN CORPUSCULAR VOLUME 84.8 fL (81-99); MONOCYTES # (AUTO) 1.4 (0.2-0.8); MONOCYTES % 8.6 % (4.4-11.3); NEUTROPHILS # (AUTO) 11.4 (2.1-6.9); NEUTROPHILS % 70.6 % (38.7-80.0); PLATELET COUNT 241 x10e3/uL (140-360); RED BLOOD COUNT 3.49 x10e6/uL (4.3-5.7); RED CELL DISTRIBUTION WIDTH 15.9 % (11.7-14.4)
[2020-02-19 06:05] LABS: ALANINE AMINOTRANSFERASE 29 IU/L (0-55); ALBUMIN 2.8 g/dL (3.5-5.0); ALBUMIN/GLOBULIN RATIO 0.7 (0.8-2.0); ALKALINE PHOSPHATASE 56 IU/L (40-150); ANION GAP 18.9 mmol/L (8-16); BLOOD UREA NITROGEN 12 mg/dL (7-26); BUN/CREATININE RATIO 15 (6-25); CARBON DIOXIDE 23 mmol/L (22-29); CHLORIDE 98 mmol/L (98-107); EST GLOMERULAR FILTRATION RATE > 60 ML/MIN (60-); GLUCOSE 191 mg/dL (74-118); SODIUM 137 mmol/L (136-145)
[2020-02-19 06:12] LABS: POTASSIUM 2.9 mmol/L (3.5-5.1)
[2020-02-19] MEDS ORDERED: POTASSIUM CHLORIDE 10MEQ EA PO STA (06:15)
--- NOTE | 2020-02-19 06:17 | NUR ---
Lab called with a critical potassium level of 2.9. notified. Received new orders for potassium replacements.
[2020-02-19] MEDS ORDERED: POTASSIUM CHLORIDE 10MEQ EA PO ONE (09:00)
--- OUTSIDE RECORDS SUMMARY | 2020-02-19 10:15 | XMS REPORT | Clinical Summary ---
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 Active atorvastatin (LIPITOR) 40 Take 40 mg by 0 mg tablet mouth every evening. Active citalopram (CeleXA) 40 MG Take 40 mg by 0 tablet mouth daily. Active ezetimibe (ZETIA) 10 mg Take 10 mg by 0 tablet mouth daily. Active ferrous sulfate 325 (65 Take 325 mg 0 FE) MG tablet by mouth 2 (two) times a day. Active tamsulosin (FLOMAX) 0.4 Take 0.4 mg 0 mg capsule by mouth daily with dinner. Active gabapentin (NEURONTIN) Take 400 mg 0 400 mg capsule by mouth 3 (three) times a day. Active glimepiride (AMARYL) 2 MG Take 2 mg by 0 tablet mouth 2 (two) times a day. Active levothyroxine (SYNTHROID) Take 137 mcg 0 137 mcg tablet by mouth daily. Active lisinopriL (PRINIVIL) 2.5 Take 10 mg by 0 mg tablet mouth 2 (two) times a day. Active multivitamin (THERAGRAN) Take 1 tablet 0 tablet by mouth daily. Active sodium chloride 1 gram Take 1 g by 0 tablet mouth 2 (two) times a day. For hyponatremia Active apixaban (ELIQUIS) 2.5 mg Take 1 tablet 60 tablet 0 tablet (2.5 mg 0 total) by mouth 2 (two) times a day. Active lidocaine (XYLOCAINE) 2 % Apply 1 0 jelly application topically as needed for mild pain. Wound vac changes 02/26/2020 Active clopidogreL (PLAVIX) 75 Take 1 tablet 30 tablet 0 mg tablet (75 mg total) 0 by mouth daily for 30 days. 02/26/2020 Active metoprolol succinate XL Take 1 tablet 30 tablet 0 (TOPROL-XL) 25 mg 24 hr (25 mg total) 0 tablet by mouth daily for 30 days. 02/26/2020 Active acetaminophen (TYLENOL) Take 2 0 325 MG tablet tablets (650 0 mg total) by mouth every 6 (six) hours as needed for fever (pain 1-4) for up to 30 days. Active insulin lispro (ADMELOG) Inject 0-12 10 mL 12 1 100 unit/mL injection Units under 0 the skin 4 (four) times a day before meals and nightly. 02/26/2020 Active nystatin (MYCOSTATIN) Apply 15 g 0 12/30 100,000 unit/gram powder topically 2 0 (two) times a day for 30 days. 02/26/2020 Active bacitracin 500 unit/gram Apply 0 01/26 ointment topically 2 0 (two) times a day for 30 days. 02/26/2020 Active doxycycline (VIBRAMYCIN) Take 1 0 01/26 100 MG capsule capsule (100 0 mg total) by mouth 2 (two) times a day with meals for 30 days. 02/27/2020 Active insulin GLARGINE (LANTUS) Inject 5 0 12/31 100 unit/mL injection Units under 0 (vial) the skin daily before breakfast for 30 days. 02/26/2020 Active simethicone (MYLICON) 80 Chew 1 tablet 0 01/26 MG chewable tablet (80 mg total) 0 every 6 (six) hours as needed for flatulence for up to 30 days. Active white petrolatum-mineral Apply 0 01/26 oil (DERMACERIN,EUCERIN) topically as 0 cream topical cream needed (dry skin). 03/05/2020 Active midodrine (PROAMATINE) Take 1 tablet 90 tablet 0 1 2.5 MG tablet (2.5 mg 0 total) by mouth 3 (three) times a day for 30 days. 03/06/2020 Active insulin GLARGINE (LANTUS) Inject 5 10 mL 0 100 unit/mL injection Units under 0 (vial) the skin daily before breakfast for 30 days. 02/04/2020 Discontinued (Stop Taking at Discharge) ALPRAZolam (XANAX) 1 MG Take 1 mg by 0 tablet mouth every 8 (eight) hours as needed for anxiety. 12/15/2019 Discontinued (Stop Taking at Discharge) aspirin (ECOTRIN) 81 MG Take 81 mg by 0 enteric coated tablet mouth daily. 12/15/2019 Discontinued (Stop Taking at Discharge) ciprofloxacin (CIPRO) 500 Take 500 mg 0 10/29 MG tablet by mouth 0 every 12 (twelve) hours. Pt was taking for UTI Start date 11/0812/15/2019 Discontinued (Stop Taking at Discharge) enoxaparin (LOVENOX) 30 Inject 30 mg 0 mg/0.3 mL syringe under the skin daily. 02/04/2020 Discontinued (Stop Taking at Discharge) fluticasone Inhale 1 puff 0 propion-salmeteroL 232-14 every 12 mcg/actuation aerosol (twelve) powdr breath activated hours. For SOB 02/04/2020 Discontinued (Stop Taking at Discharge) insulin lispro (HUMALOG, Inject 0-12 0 ADMELOG) 100 unit/mL Units under injection the skin 4 (four) times a day before meals and nightly. 02/04/2020 Discontinued (Stop Taking at Discharge) magnesium oxide (MAG-OX) Take 400 mg 0 400 mg (241.3 mg by mouth magnesium) tablet daily. 02/05/2020 Discontinued (Reorder) HYDROcodone-acetaminophen Take 1 tablet 0 (NORCO) 10-325 mg per by mouth tabletIndications: acute every 4 pain (four) hours as needed for moderate pain .acute pain. Given 30-45 prior to wound care 02/04/2020 Discontinued (Stop Taking at Discharge) HYDROcodone-acetaminophen Take 1 tablet 0 (NORCO) 5-325 mg per by mouth tabletIndications: acute every 6 (six) pain hours as needed for moderate pain .acute pain. 02/04/2020 Discontinued (Stop Taking at Discharge) nystatin (MYCOSTATIN) Apply 0 100,000 unit/gram cream topically 2 (two) times a day. 02/04/2020 Discontinued (Stop Taking at Discharge) nystatin (MYCOSTATIN) Apply 0 100,000 unit/gram powder topically 2 (two) times a day. Apply to jose maria area/ scrotal area 12/15/2019 Discontinued (Stop Taking at Discharge) ondansetron (ZOFRAN) 8 MG Take 8 mg by 0 tablet mouth every 6 (six) hours. 12/15/2019 Discontinued (Stop Taking at Discharge) zinc sulfate (ZINCATE) Take 220 mg 0 220 (50) mg capsule by mouth daily. 02/04/2020 Discontinued (Stop Taking at Discharge) acetaminophen (TYLENOL) Take 2 40 tablet 1 325 MG tablet tablets (650 0 mg total) by mouth every 6 (six) hours as needed for mild pain or fever for up to 30 days. 01/27/2020 Discontinued clopidogreL (PLAVIX) 75 Take 1 tablet 30 tablet 0 mg tablet (75 mg total) 0 by mouth daily for 30 days. 01/27/2020 Discontinued metoprolol succinate XL Take 1 tablet 30 tablet 0 (TOPROL-XL) 25 mg 24 hr (25 mg total) 0 tablet by mouth daily for 30 days. 02/04/2020 Discontinued (Stop Taking at Discharge) lactulose 20 gram/30 mL Take 30 mL 2700 mL 0 solution (20 g total) 0 by mouth 3 (three) times a day for 30 days. 12/15/2019 Discontinued (Stop Taking at Discharge) cefepime (MAXIPIME) 1 Infuse 1 g 24 each 0 11/29 gram in 50 mL Mini-Bag into a venous 0 Plus catheter every 8 (eight) hours for 20 days. 02/04/2020 Discontinued (Stop Taking at Discharge) cefepime (MAXIPIME) 1 Infuse into a 0 gram in 0.9% sodium venous chloride 50mL Mini-Bag catheter Plus every 8 (eight) hours. 12/16/2019 Discontinued (Duplicate orde r) DAPTOmycin, PF, (Cubicin Infuse 1,000 0 RF) 500 mg injection mg into a venous catheter daily. 02/04/2020 Discontinued (Stop Taking at Discharge) sodium chloride 0.9% Infuse 1,000 0 parenteral solution 100 mg into a mL with DAPTOmycin (PF) venous 500 mg recon soln 6 mg/kg catheter daily. DAPTOmycin 1,000 mg in sodium chloride 0.9 % IVPB 02/04/2020 Discontinued (Stop Taking at Discharge) fluticasone Inhale once 0 furoate-vilanteroL (Breo daily. Ellipta) 100-25 mcg/dose blister with device powder for inhalation 02/04/2020 Discontinued (Stop Taking at Discharge) dextrose 10 % infusion Infuse 40 0 mL/hr into a venous catheter continuously as needed (for bedside glucose LESS than 70 mg/dL). 02/04/2020 Discontinued (Stop Taking at Discharge) dextrose 50% syringe Infuse 25 g 0 into a venous catheter every 20 (twenty) minutes as needed (Low blood sugar). If blood glucose is LESS than 40 mg/dL 02/04/2020 Discontinued (Stop Taking at Discharge) dextrose 50% syringe Infuse 12.5 g 0 into a venous catheter every 20 (twenty) minutes as needed (low blood sugar). If blood sugar is between 41-50 mg/dL 02/04/2020 Discontinued (Stop Taking at Discharge) furosemide (LASIX) 10 Infuse 20 mg 0 mg/mL injection into a venous catheter as needed (for blood transfusion). Inject each 20 mg of furosemide slowly IV over 1 to 2 minutes post bt 1st and 2nd unti 02/04/2020 Discontinued (Stop Taking at Discharge) glucagon, human Inject 1 mg 0 recombinant, (glucagon) 1 into the mg injection shoulder, thigh, or buttocks every 15 (fifteen) minutes as needed for low blood sugar (if patient NPO unable to swallow with NO IV acces). 02/04/2020 Discontinued (Stop Taking at Discharge) hydrALAZINE (APRESOLINE) Infuse 10 mg 0 20 mg/mL injection into a venous catheter every 4 (four) hours as needed for high blood pressure. Administer if Systolic BP > 170 mmHg 02/04/2020 Discontinued (Stop Taking at Discharge) naloxone (NARCAN) 0.4 Infuse 0.2 mg 0 mg/mL injection into a venous catheter every 2 (two) minutes as needed for respiratory depression (Unarousable and/or patient RR <9). 02/03/2020 ALPRAZolam (XANAX) 0.5 MG Take 1 tablet 0 12/30 tablet (0.5 mg 0 total) by mouth 2 (two) times a day for 7 days. 02/12/2020 HYDROcodone-acetaminophen Take 1 tablet 28 tablet 0 (NORCO) 10-325 mg per by mouth 0 tabletIndications: acute every 6 (six) pain hours as needed for moderate pain for up to 7 days .acute pain. Given 30-45 prior to wound care Max Daily Amount: 4 tablets Active Problems Problem Noted Date Moderate protein malnutrition 12/28/2019 Sacral wound 12/16/2019 Hematuria 12/06/2019 PAD (peripheral artery disease) 12/06/2019 Weakness 11/17/2019 Atrial fibrillation Diabetes mellitus Hypertension History of congestive heart failure Pressure ulcer of sacral region, unspec ified stage Pressure ulcer of right heel Anemia, unspecified History of hyperlipidemia History of CVA (cerebrovascular acciden t) Bedbound Encounters Care Team Description Date Type Specialty Brant Albert MD Pressure injury of skin of sacral region , unspecified injury stage (Primary Dx) 12/15/2019 [facility] Shelter Care Acut e - Encounter 02/04/2020 12/15/2019 Travel Provider, Unknown 12/02/2019 Documentation Medical Records Emily Macias MD 12/01/2019 Orders Only Infectious Diseases Nic Yun MD Ali, Faisal, CRNA 11/23/2019 Anesthesia General Surgery Event Hussein Littlejohn MD LAPAROSCOPIC DIVERTING COLOSTOMY 11/23/2019 Surgery General Surgery Chidi Saldaña MD Savrick, Mark Daniel, MD 11/21/2019 Anesthesia General Surgery Event Hussein Littlejohn MD Excisional debridement of infected decub itus ulcer on sacrum 11/21/2019 Surgery General Surgery Ben Goel Jr., MD Mayen Nunez, Jose Isaias, MD Weakness (Primary Dx); Skin ulcer of sacrum, unspecified ulcer stage (HCC); History of CVA in adulthood; Congestive heart failure, unspecified HF chronicity, unspecified heart failure type (HCC); Anemia, unspecified type 11/17/2019 [facility] Internal Hi dicine - Encounter 12/15/2019 11/17/2019 Travel after 02/17/2019 Immunizations Name Administration Dates Next Due FLUCELVAX QUAD PF 12/24/2019 Surgical History Surgery Date Site/Laterality Comments CARDIAC DEFIBRILLATOR PLACEMENT DEBRIDEMENT 11/21/2019 Posterior Procedure: Exci sional debridement of infected decubitus ulcer on sacrum; Surgeon: Hussein Pat MD; Location: [facility] OR; Service: General; Laterality: Posterior; RESECTION, COLON, LOW 11/23/2019 Abdomen/N/A Procedur e: LAPAROSCOPIC DIVERTING COLOSTOMY; ANTERIOR, LAPAROSCOPIC Surgeon: Hussein Littlejohn MD; Location: [facility] OR; Service: General; Laterality : N/A; Medical History Medical History Date Comments Hypertension Diabetes mellitus (HCC) Stroke (HCC) Atrial fibrillation (HCC) Disease of thyroid gland CHF (congestive heart failure) (HCC) Diabetic ulcer of buttock (HCC) Social History Date Tobacco Use Types Packs/Day Years Used Never Smoker Smokeless Tobacco: Never Used Drinks/Week oz/Week Comments Alcohol Use Not Currently Sex Assigned at Date Recorded Not on file Last Filed Vital Signs Reading Time Taken Comments Vital Sign 124/57 02/04/2020 12:18 PM [employer] Blood Pressure 72 02/04/2020 12:18 PM [employer] Pulse 36.7 C (98.1 F) 02/04/2020 7:24 AM [employer] Temperature 18 02/04/2020 12:18 PM [employer] Respiratory Rate 96% 02/04/2020 7:50 AM [employer] Oxygen Saturation - - Inhaled Oxygen Concentration 113 kg (250 lb) 02/01/2020 4:00 AM [employer] Weight 185.4 cm (6' 1") 12/04/2019 5:00 PM CDT Height 32.98 12/04/2019 5:00 PM CDT Body Mass Index Plan of Treatment Health Maintenance Due Date Last Done Comments DIABETES: RETINAL EYE 1950 EXAM URINE MICROALBUMIN 1950 SHINGLES VACCINES (#1) 1990 65+ PNEUMOCOCCAL VACCINE 2005 (1 of 1 - PPSV23) DIABETIC FOOT EXAM 12/19/2020 12/20/2019 INFLUENZA VACCINE Completed 12/24/2019 Implants Device Identifier Shelf Expiration Date Model / Serial / L ot Implanted Type Area Manufactur er 05/28/2020 [id number] / / [id number] Device Vasclr Clsr Vasoactive Cardiovasc N/A: N/A Intstnl Peptd 6fr Angio-Seal - ular [id number] Implants Implanted: 11/26/2019 at [facility] (Quantity not on file) H1 S / / H1-S 6fr - - [id number] Cardiovasc N/A: N/A M EDTRONIC Implanted: 11/26/2019 at [facility] CARDIOV [facility] (Quantity not on file) Implants ULAR [id number] / / Valve [facility] Accessplus 9fr Lgbr - Cardiovasc N/A: N/A MERIT [id number] ar MEDICAL Implanted: 11/26/[address] [facility] Implants [facility] (Quantity not on file) INC [id number] / / Set Cath Picc Dl 5fr W/135cm - Surgical N/A: N/A BARD [id number] Implants; ACCESS Implanted: 11/24/[address] [facility] Expanders; [facility] (Quantity not on file) Extenders; Surgical Wires Procedures Comments Procedure Name Priority Date/Time Associated Diag nosis POC GLUCOSE Routine 02/04/2020 11:28 AM [employer] POC GLUCOSE Routine 02/04/2020 7:21 AM [employer] POC GLUCOSE Routine 02/03/2020 7:20 PM [employer] POC GLUCOSE Routine 02/03/2020 3:50 PM [employer] POC GLUCOSE Routine 02/03/2020 10:54 AM [employer] POC GLUCOSE Routine 02/03/2020 8:08 AM [employer] ESTIMATED GFR Routine 02/03/2020 4:25 AM [employer] BASIC METABOLIC PANEL Routine 02/03/2020 4:25 AM [employer] POC GLUCOSE Routine 02/02/2020 8:03 PM [employer] POC GLUCOSE Routine 02/02/2020 3:29 PM [employer] POC GLUCOSE Routine 02/02/2020 11:09 AM [employer] POC GLUCOSE Routine 02/02/2020 7:27 AM [employer] CBC HEMOGRAM Routine 02/02/2020 5:00 AM [employer] POC GLUCOSE Routine 02/01/2020 7:54 PM [employer] POC GLUCOSE Routine 02/01/2020 4:08 PM [employer] POC GLUCOSE Routine 02/01/2020 11:39 AM [employer] POC GLUCOSE Routine 02/01/2020 7:34 AM [employer] HC COMPLETE BLD COUNT Routine 02/01/2020 W/AUTO DIFF 4:05 AM [employer] POC GLUCOSE Routine 01/31/2020 7:58 PM [employer] POC GLUCOSE Routine 01/31/2020 4:12 PM [employer] POC GLUCOSE Routine 01/31/2020 11:19 AM [employer] POC GLUCOSE Routine 01/31/2020 7:37 AM [employer] POC GLUCOSE Routine 01/30/2020 9:30 PM [employer] POC GLUCOSE Routine 01/30/2020 3:31 PM [employer] POC GLUCOSE Routine 01/30/2020 12:26 PM [employer] POC GLUCOSE Routine 01/30/2020 7:40 AM [employer] POC GLUCOSE Routine 01/30/2020 6:01 AM [employer] POC GLUCOSE Routine 01/29/2020 7:39 PM CDT POC GLUCOSE Routine 01/29/2020 5:05 PM CDT POC GLUCOSE Routine 01/29/2020 11:48 AM CDT POC GLUCOSE Routine 01/29/2020 8:25 AM CDT POC GLUCOSE Routine 01/29/2020 5:21 AM CDT POC GLUCOSE Routine 01/28/2020 7:17 PM CDT POC GLUCOSE Routine 01/28/2020 4:40 PM CDT POC GLUCOSE Routine 01/28/2020 11:29 AM CDT POC GLUCOSE Routine 01/28/2020 7:16 AM CDT POC GLUCOSE Routine 01/28/2020 5:47 AM CDT POC GLUCOSE Routine 01/27/2020 8:42 PM CDT POC GLUCOSE Routine 01/27/2020 3:31 PM CDT POC GLUCOSE Routine 01/27/2020 11:24 AM CDT POC GLUCOSE Routine 01/27/2020 7:57 AM CDT POC GLUCOSE Routine 01/27/2020 5:40 AM CDT POC GLUCOSE Routine 01/26/2020 8:01 PM CDT POC GLUCOSE Routine 01/26/2020 3:57 PM CDT POC GLUCOSE Routine 01/26/2020 10:27 AM CDT POC GLUCOSE Routine 01/26/2020 7:27 AM CDT POC GLUCOSE Routine 01/26/2020 6:03 AM CDT POC GLUCOSE Routine 01/25/2020 7:15 PM CDT POC GLUCOSE Routine 01/25/2020 3:40 PM CDT POC GLUCOSE Routine 01/25/2020 10:36 AM CDT POC GLUCOSE Routine 01/25/2020 7:14 AM CDT POC GLUCOSE Routine 01/25/2020 6:03 AM CDT ESTIMATED GFR Routine 01/25/2020 4:00 AM CDT BASIC METABOLIC PANEL Routine 01/25/2020 4:00 AM CDT HC COMPLETE BLD COUNT Routine 01/25/2020 W/AUTO DIFF 4:00 AM CDT POC GLUCOSE Routine 01/24/2020 7:31 PM CDT POC GLUCOSE Routine 01/24/2020 3:42 PM CDT POC GLUCOSE Routine 01/24/2020 10:51 AM CDT POC GLUCOSE Routine 01/24/2020 7:32 AM CDT POC GLUCOSE Routine 01/24/2020 5:50 AM CDT POC GLUCOSE Routine 01/23/2020 7:31 PM CDT POC GLUCOSE Routine 01/23/2020 3:55 PM CDT POC GLUCOSE Routine 01/23/2020 11:33 AM CDT POC GLUCOSE Routine 01/23/2020 7:10 AM CDT POC GLUCOSE Routine 01/23/2020 5:34 AM CDT POC GLUCOSE Routine 01/22/2020 8:13 PM CDT POC GLUCOSE Routine 01/22/2020 4:18 PM CDT POC GLUCOSE Routine 01/22/2020 11:25 AM CDT POC GLUCOSE Routine 01/22/2020 7:25 AM CDT POC GLUCOSE Routine 01/21/2020 7:33 PM CDT POC GLUCOSE Routine 01/21/2020 3:38 PM CDT COVID-19 QUALITATIVE PCR STAT 01/21/2020 11:54 AM CDT POC GLUCOSE Routine 01/21/2020 11:31 AM CDT POC GLUCOSE Routine 01/21/2020 7:37 AM CDT POC GLUCOSE Routine 01/21/2020 5:57 AM CDT POC GLUCOSE Routine 01/20/2020 7:37 PM CDT POC GLUCOSE Routine 01/20/2020 4:20 PM CDT POC GLUCOSE Routine 01/20/2020 11:15 AM CDT POC GLUCOSE Routine 01/20/2020 7:53 AM CDT POC GLUCOSE Routine 01/20/2020 5:31 AM CDT ESTIMATED GFR Routine 01/20/2020 4:35 AM CDT PHOSPHORUS LEVEL Routine 01/20/2020 4:35 AM CDT MAGNESIUM LEVEL Routine 01/20/2020 4:35 AM CDT THYROID STIMULATING Routine 01/20/2020 HORMONE 4:35 AM CDT COMPREHENSIVE METABOLIC Routine 01/20/2020 PANEL 4:35 AM CDT HC COMPLETE BLD COUNT Routine 01/20/2020 W/AUTO DIFF 4:35 AM CDT POC GLUCOSE Routine 01/19/2020 8:09 PM CDT POC GLUCOSE Routine 01/19/2020 3:59 PM CDT POC GLUCOSE Routine 01/19/2020 11:26 AM CDT POC GLUCOSE Routine 01/19/2020 7:31 AM CDT POC GLUCOSE Routine 01/19/2020 6:06 AM CDT POC GLUCOSE Routine 01/18/2020 8:06 PM CDT POC GLUCOSE Routine 01/18/2020 3:40 PM CDT POC GLUCOSE Routine 01/18/2020 11:24 AM CDT POC GLUCOSE Routine 01/18/2020 7:18 AM CDT POC GLUCOSE Routine 01/18/2020 6:09 AM CDT CREATINE KINASE, TOTAL Timed 01/18/2020 (CPK) 4:20 AM CDT POC GLUCOSE Routine 01/17/2020 7:31 PM CDT POC GLUCOSE Routine 01/17/2020 3:42 PM CDT POC GLUCOSE Routine 01/17/2020 10:35 AM CDT POC GLUCOSE Routine 01/17/2020 7:33 AM CDT POC GLUCOSE Routine 01/17/2020 6:36 AM CDT POC GLUCOSE Routine 01/16/2020 7:37 PM CDT POC GLUCOSE Routine 01/16/2020 3:44 PM CDT POC GLUCOSE Routine 01/16/2020 11:10 AM CDT POC GLUCOSE Routine 01/16/2020 7:40 AM CDT POC GLUCOSE Routine 01/15/2020 7:22 PM CDT POC GLUCOSE Routine 01/15/2020 3:50 PM CDT POC GLUCOSE Routine 01/15/2020 11:19 AM CDT POC GLUCOSE Routine 01/15/2020 7:43 AM CDT ESTIMATED GFR Routine 01/15/2020 4:00 AM CDT BASIC METABOLIC PANEL Routine 01/15/2020 4:00 AM CDT CBC HEMOGRAM Routine 01/15/2020 4:00 AM CDT POC GLUCOSE Routine 01/14/2020 8:16 PM CDT POC GLUCOSE Routine 01/14/2020 4:19 PM CDT POC GLUCOSE Routine 01/14/2020 11:33 AM CDT POC GLUCOSE Routine 01/14/2020 7:50 AM CDT POC GLUCOSE Routine 01/14/2020 4:09 AM CDT POC GLUCOSE Routine 01/13/2020 7:08 PM CDT POC GLUCOSE Routine 01/13/2020 4:14 PM CDT POC GLUCOSE Routine 01/13/2020 11:56 AM CDT POC GLUCOSE Routine 01/13/2020 7:49 AM CDT POC GLUCOSE Routine 01/13/2020 4:27 AM CDT POC GLUCOSE Routine 01/12/2020 8:32 PM CDT POC GLUCOSE Routine 01/12/2020 3:57 PM CDT POC GLUCOSE Routine 01/12/2020 11:19 AM CDT POC GLUCOSE Routine 01/12/2020 7:12 AM CDT POC GLUCOSE Routine 01/11/2020 7:36 PM CDT POC GLUCOSE Routine 01/11/2020 4:25 PM CDT POC GLUCOSE Routine 01/11/2020 11:36 AM CDT POC GLUCOSE Routine 01/11/2020 7:16 AM CDT URINALYSIS, AUTOMATED Timed 01/11/2020 WITH MICROSCOPY 5:20 AM CDT CREATINE KINASE, TOTAL Timed 01/11/2020 (CPK) 5:20 AM CDT POC GLUCOSE Routine 01/10/2020 7:18 PM CDT POC GLUCOSE Routine 01/10/2020 4:02 PM CDT POC GLUCOSE Routine 01/10/2020 11:08 AM CDT POC GLUCOSE Routine 01/10/2020 7:16 AM CDT POC GLUCOSE Routine 01/10/2020 4:53 AM CDT ESTIMATED GFR Routine 01/10/2020 4:45 AM CDT BASIC METABOLIC PANEL Routine 01/10/2020 4:45 AM CDT CBC HEMOGRAM Routine 01/10/2020 4:45 AM CDT POC GLUCOSE Routine 01/09/2020 7:42 PM CDT POC GLUCOSE Routine 01/09/2020 4:33 PM CDT POC GLUCOSE Routine 01/09/2020 11:19 AM CDT POC GLUCOSE Routine 01/09/2020 7:11 AM CDT POC GLUCOSE Routine 01/09/2020 5:06 AM CDT POC GLUCOSE Routine 01/08/2020 7:34 PM CDT POC GLUCOSE Routine 01/08/2020 3:38 PM CDT POC GLUCOSE Routine 01/08/2020 11:19 AM CDT POC GLUCOSE Routine 01/08/2020 7:34 AM CDT POC GLUCOSE Routine 01/07/2020 8:09 PM CDT POC GLUCOSE Routine 01/07/2020 4:23 PM CDT POC GLUCOSE Routine 01/07/2020 11:51 AM CDT POC GLUCOSE Routine 01/07/2020 7:35 AM CDT POC GLUCOSE Routine 01/06/2020 7:35 PM CDT POC GLUCOSE Routine 01/06/2020 3:38 PM CDT POC GLUCOSE Routine 01/06/2020 11:26 AM CDT POC GLUCOSE Routine 01/06/2020 7:51 AM CDT URINE CULTURE Routine 01/05/2020 8:29 PM CDT POC GLUCOSE Routine 01/05/2020 7:37 PM CDT URINALYSIS SCREEN AND Routine 01/05/2020 MICROSCOPY, WITH REFLEX 6:55 PM CDT TO CULTURE POC GLUCOSE Routine 01/05/2020 3:20 PM CDT POC GLUCOSE Routine 01/05/2020 11:39 AM CDT POC GLUCOSE Routine 01/05/2020 7:58 AM CDT POC GLUCOSE Routine 01/05/2020 5:21 AM CDT POC GLUCOSE Routine 01/04/2020 7:40 PM CDT POC GLUCOSE Routine 01/04/2020 4:31 PM CDT POC GLUCOSE Routine 01/04/2020 11:29 AM CDT POC GLUCOSE Routine 01/04/2020 8:27 AM CDT POC GLUCOSE Routine 01/04/2020 5:38 AM CDT ESTIMATED GFR Timed 01/04/2020 4:00 AM CDT THYROID STIMULATING Timed 01/04/2020 HORMONE 4:00 AM CDT BASIC METABOLIC PANEL Timed 01/04/2020 4:00 AM CDT HC COMPLETE BLD COUNT Timed 01/04/2020 W/AUTO DIFF 4:00 AM CDT CREATINE KINASE, TOTAL Timed 01/04/2020 (CPK) 4:00 AM CDT POC GLUCOSE Routine 01/03/2020 7:37 PM CDT POC GLUCOSE Routine 01/03/2020 4:28 PM CDT POC GLUCOSE Routine 01/03/2020 11:41 AM CDT POC GLUCOSE Routine 01/03/2020 7:56 AM CDT POC GLUCOSE Routine 01/03/2020 5:10 AM CDT TRANSFUSE RED BLOOD CELLS Routine 01/03/2020 2:19 AM CDT POC GLUCOSE Routine 01/02/2020 7:43 PM CDT POC GLUCOSE Routine 01/02/2020 3:51 PM CDT PREPARE RBC Routine 01/02/2020 12:00 PM CDT TYPE AND SCREEN Routine 01/02/2020 12:00 PM CDT POC GLUCOSE Routine 01/02/2020 11:17 AM CDT POC GLUCOSE Routine 01/02/2020 7:40 AM CDT POC GLUCOSE Routine 01/02/2020 5:35 AM CDT ESTIMATED GFR Routine 01/02/2020 4:15 AM CDT COMPREHENSIVE METABOLIC Routine 01/02/2020 PANEL 4:15 AM CDT HC COMPLETE BLD COUNT Routine 01/02/2020 W/AUTO DIFF 4:15 AM CDT POC GLUCOSE Routine 01/01/2020 7:56 PM CDT POC GLUCOSE Routine 01/01/2020 4:27 PM CDT URINALYSIS, AUTOMATED Routine 01/01/2020 WITH MICROSCOPY 2:42 PM CDT POC GLUCOSE Routine 01/01/2020 1:25 PM CDT POC GLUCOSE Routine 01/01/2020 1:16 PM CDT POC GLUCOSE Routine 01/01/2020 11:28 AM CDT POC GLUCOSE Routine 01/01/2020 7:36 AM CDT POC GLUCOSE Routine 01/01/2020 6:09 AM CDT POC GLUCOSE Routine 12/31/2019 7:31 PM CDT POC GLUCOSE Routine 12/31/2019 3:54 PM CDT POC GLUCOSE Routine 12/31/2019 12:42 PM CDT POC GLUCOSE Routine 12/31/2019 7:59 AM CDT POC GLUCOSE Routine 12/30/2019 7:25 PM CDT POC GLUCOSE Routine 12/30/2019 4:22 PM CDT POC GLUCOSE Routine 12/30/2019 12:01 PM CDT POC GLUCOSE Routine 12/30/2019 7:23 AM CDT POC GLUCOSE Routine 12/29/2019 7:31 PM CDT POC GLUCOSE Routine 12/29/2019 4:28 PM CDT POC GLUCOSE Routine 12/29/2019 11:44 AM CDT POC GLUCOSE Routine 12/29/2019 7:47 AM CDT POC GLUCOSE Routine 12/29/2019 5:43 AM CDT POC GLUCOSE Routine 12/28/2019 7:23 PM CDT POC GLUCOSE Routine 12/28/2019 3:47 PM CDT POC GLUCOSE Routine 12/28/2019 11:38 AM CDT POC GLUCOSE Routine 12/28/2019 7:19 AM CDT CREATINE KINASE, TOTAL Timed 12/28/2019 (CPK) 4:40 AM CDT POC GLUCOSE Routine 12/27/2019 7:49 PM CDT POC GLUCOSE Routine 12/27/2019 4:24 PM CDT OCCULT BLOOD, STOOL Routine 12/27/2019 2:10 PM CDT POC GLUCOSE Routine 12/27/2019 11:20 AM CDT POC GLUCOSE Routine 12/27/2019 7:20 AM CDT POC GLUCOSE Routine 12/27/2019 5:41 AM CDT ESTIMATED GFR Routine 12/27/2019 4:00 AM CDT BASIC METABOLIC PANEL Routine 12/27/2019 4:00 AM CDT HC COMPLETE BLD COUNT Routine 12/27/2019 W/AUTO DIFF 4:00 AM CDT POC GLUCOSE Routine 12/26/2019 7:50 PM CDT POC GLUCOSE Routine 12/26/2019 3:46 PM CDT POC GLUCOSE Routine 12/26/2019 11:05 AM CDT POC GLUCOSE Routine 12/26/2019 7:51 AM CDT POC GLUCOSE Routine 12/26/2019 5:31 AM CDT POC GLUCOSE Routine 12/25/2019 8:01 PM CDT POC GLUCOSE Routine 12/25/2019 4:40 PM CDT POC GLUCOSE Routine 12/25/2019 11:52 AM CDT POC GLUCOSE Routine 12/25/2019 7:39 AM CDT POC GLUCOSE Routine 12/24/2019 8:18 PM CDT POC GLUCOSE Routine 12/24/2019 3:40 PM CDT POC GLUCOSE Routine 12/24/2019 11:31 AM CDT POC GLUCOSE Routine 12/24/2019 7:40 AM CDT POC GLUCOSE Routine 12/23/2019 8:02 PM CDT POC GLUCOSE Routine 12/23/2019 4:01 PM CDT POC GLUCOSE Routine 12/23/2019 11:30 AM CDT POC GLUCOSE Routine 12/23/2019 7:36 AM CDT POC GLUCOSE Routine 12/22/2019 7:26 PM CDT POC GLUCOSE Routine 12/22/2019 4:01 PM CDT POC GLUCOSE Routine 12/22/2019 11:09 AM CDT POC GLUCOSE Routine 12/22/2019 7:17 AM CDT POC GLUCOSE Routine 12/21/2019 7:44 PM CDT POC GLUCOSE Routine 12/21/2019 3:49 PM CDT POC GLUCOSE Routine 12/21/2019 11:08 AM CDT POC GLUCOSE Routine 12/21/2019 7:40 AM CDT CREATINE KINASE, TOTAL Timed 12/21/2019 (CPK) 4:15 AM CDT POC GLUCOSE Routine 12/20/2019 8:02 PM CDT POC GLUCOSE Routine 12/20/2019 4:19 PM CDT POC GLUCOSE Routine 12/20/2019 11:16 AM CDT POC GLUCOSE Routine 12/20/2019 7:46 AM CDT POC GLUCOSE Routine 12/19/2019 7:56 PM CDT POC GLUCOSE Routine 12/19/2019 3:42 PM CDT POC GLUCOSE Routine 12/19/2019 11:42 AM CDT POC GLUCOSE Routine 12/19/2019 7:48 AM CDT POC GLUCOSE Routine 12/18/2019 7:37 PM CDT POC GLUCOSE Routine 12/18/2019 4:29 PM CDT POC GLUCOSE Routine 12/18/2019 11:28 AM CDT POC GLUCOSE Routine 12/17/2019 7:42 PM CDT POC GLUCOSE Routine 12/17/2019 3:52 PM CDT POC GLUCOSE Routine 12/17/2019 12:15 PM CDT POC GLUCOSE Routine 12/17/2019 7:26 AM CDT POC GLUCOSE Routine 12/16/2019 4:02 PM CDT POC GLUCOSE Routine 12/16/2019 11:27 AM CDT POC GLUCOSE Routine 12/16/2019 7:26 AM CDT URINE CULTURE Routine 12/16/2019 7:18 AM CDT XR CHEST 1 VW PORTABLE Routine 12/16/2019 5:07 AM CDT ESTIMATED GFR Routine 12/16/2019 5:00 AM CDT URINALYSIS SCREEN AND Routine 12/16/2019 MICROSCOPY, WITH REFLEX 5:00 AM CDT TO CULTURE BASIC METABOLIC PANEL Routine 12/16/2019 5:00 AM CDT HC COMPLETE BLD COUNT Routine 12/16/2019 W/AUTO DIFF 5:00 AM CDT POC GLUCOSE Routine 12/15/2019 8:16 PM CDT POC GLUCOSE Routine 12/15/2019 6:34 PM CDT POC GLUCOSE Routine 12/15/2019 5:02 PM CDT POC GLUCOSE Routine 12/15/2019 12:17 PM CDT ESTIMATED GFR Routine 12/15/2019 6:10 AM CDT MAGNESIUM LEVEL Routine 12/15/2019 6:10 AM CDT BASIC METABOLIC PANEL Routine 12/15/2019 6:10 AM CDT POC GLUCOSE Routine 12/15/2019 5:17 AM CDT POC GLUCOSE Routine 12/14/2019 7:57 PM CDT POC GLUCOSE Routine 12/14/2019 4:12 PM CDT POC GLUCOSE Routine 12/14/2019 11:09 AM CDT MAGNESIUM LEVEL Routine 12/14/2019 9:42 AM CDT POC GLUCOSE Routine 12/14/2019 6:30 AM CDT POC GLUCOSE Routine 12/13/2019 7:48 PM CDT POC GLUCOSE Routine 12/13/2019 4:18 PM CDT POC GLUCOSE Routine 12/13/2019 11:29 AM CDT ESTIMATED GFR Routine 12/13/2019 9:11 AM CDT HC COMPLETE BLD COUNT Routine 12/13/2019 W/AUTO DIFF 9:11 AM CDT BASIC METABOLIC PANEL Routine 12/13/2019 9:11 AM CDT POC GLUCOSE Routine 12/12/2019 8:39 PM CDT POC GLUCOSE Routine 12/12/2019 4:57 PM CDT POC GLUCOSE Routine 12/12/2019 11:44 AM CDT POC GLUCOSE Routine 12/12/2019 5:58 AM CDT POC GLUCOSE Routine 12/11/2019 8:40 PM CDT POC GLUCOSE Routine 12/11/2019 4:04 PM CDT POC GLUCOSE Routine 12/11/2019 11:08 AM CDT POC GLUCOSE Routine 12/11/2019 5:43 AM CDT POC GLUCOSE Routine 12/10/2019 7:58 PM CDT POC GLUCOSE Routine 12/10/2019 4:36 PM CDT POC GLUCOSE Routine 12/10/2019 11:02 AM CDT ESTIMATED GFR Routine 12/10/2019 10:50 AM CDT HC COMPLETE BLD COUNT Routine 12/10/2019 W/AUTO DIFF 10:50 AM CDT COMPREHENSIVE METABOLIC Routine 12/10/2019 PANEL 10:50 AM CDT POC GLUCOSE Routine 12/10/2019 5:12 AM CDT POC GLUCOSE Routine 12/09/2019 8:11 PM CDT POC GLUCOSE Routine 12/09/2019 4:05 PM CDT POC GLUCOSE Routine 12/09/2019 11:17 AM CDT CREATINE KINASE, TOTAL Routine 12/09/2019 (CPK) 5:56 AM CDT POC GLUCOSE Routine 12/09/2019 5:33 AM CDT POC GLUCOSE Routine 12/08/2019 8:33 PM CDT POC GLUCOSE Routine 12/08/2019 3:55 PM CDT MAGNESIUM LEVEL Routine 12/08/2019 11:25 AM CDT POC GLUCOSE Routine 12/08/2019 11:09 AM CDT ESTIMATED GFR Routine 12/08/2019 6:00 AM CDT HC COMPLETE BLD COUNT Routine 12/08/2019 W/AUTO DIFF 6:00 AM CDT BASIC METABOLIC PANEL Routine 12/08/2019 6:00 AM CDT POC GLUCOSE Routine 12/08/2019 5:53 AM CDT POC GLUCOSE Routine 12/07/2019 8:19 PM CDT POC GLUCOSE Routine 12/07/2019 4:03 PM CDT POC GLUCOSE Routine 12/07/2019 11:25 AM CDT POC GLUCOSE Routine 12/07/2019 6:11 AM CDT ESTIMATED GFR Routine 12/07/2019 5:05 AM CDT MAGNESIUM LEVEL Routine 12/07/2019 5:05 AM CDT HC COMPLETE BLD COUNT Routine 12/07/2019 W/AUTO DIFF 5:05 AM CDT BASIC METABOLIC PANEL Routine 12/07/2019 5:05 AM CDT POC GLUCOSE Routine 12/06/2019 7:53 PM CDT POC GLUCOSE Routine 12/06/2019 3:56 PM CDT POC GLUCOSE Routine 12/06/2019 2:30 PM CDT ECG 12-LEAD Routine 12/06/2019 2:25 PM CDT POC GLUCOSE Routine 12/06/2019 11:30 AM CDT HC COMPLETE BLD COUNT Routine 12/06/2019 W/AUTO DIFF 11:20 AM CDT POC GLUCOSE Routine 12/06/2019 5:47 AM CDT POC GLUCOSE Routine 12/05/2019 7:33 PM CDT POC GLUCOSE Routine 12/05/2019 4:01 PM CDT POC GLUCOSE Routine 12/05/2019 11:19 AM CDT POC GLUCOSE Routine 12/05/2019 5:14 AM CDT POC GLUCOSE Routine 12/04/2019 8:10 PM CDT POC GLUCOSE Routine 12/04/2019 4:05 PM CDT POC GLUCOSE Routine 12/04/2019 11:03 AM CDT POC GLUCOSE Routine 12/04/2019 6:[address] UROGRAM Routine 12/03/2019 10:21 PM CDT POC GLUCOSE Routine 12/03/2019 8:36 PM CDT POC GLUCOSE Routine 12/03/2019 4:11 PM CDT POC GLUCOSE Routine 12/03/2019 10:57 AM CDT ESTIMATED GFR Routine 12/03/2019 10:55 AM CDT COMPREHENSIVE METABOLIC Routine 12/03/2019 PANEL 10:55 AM CDT HC COMPLETE BLD COUNT Routine 12/03/2019 W/AUTO DIFF 10:55 AM CDT POC GLUCOSE Routine 12/03/2019 5:08 AM CDT POC GLUCOSE Routine 12/02/2019 8:16 PM CDT POC GLUCOSE Routine 12/02/2019 4:04 PM CDT PREPARE RBC Routine 12/02/2019 1:51 PM CDT TYPE AND SCREEN Routine 12/02/2019 1:51 PM CDT URINE CULTURE Routine 12/02/2019 1:42 PM CDT URINALYSIS SCREEN AND Routine 12/02/2019 MICROSCOPY, WITH REFLEX 1:17 PM CDT TO CULTURE POC GLUCOSE Routine 12/02/2019 10:44 AM CDT POC GLUCOSE Routine 12/02/2019 5:53 AM CDT CREATINE KINASE, TOTAL Routine 12/02/2019 (CPK) 4:45 AM CDT ESTIMATED GFR Routine 12/02/2019 4:45 AM CDT BASIC METABOLIC PANEL Routine 12/02/2019 4:45 AM CDT HC COMPLETE BLD COUNT Routine 12/02/2019 W/AUTO DIFF 4:45 AM CDT POC GLUCOSE Routine 12/01/2019 8:14 PM CDT POC GLUCOSE Routine 12/01/2019 4:41 PM CDT POC GLUCOSE Routine 12/01/2019 11:14 AM CDT POC GLUCOSE Routine 12/01/2019 5:59 AM CDT POC GLUCOSE Routine 11/30/2019 7:38 PM CDT POC GLUCOSE Routine 11/30/2019 4:42 PM CDT POC GLUCOSE Routine 11/30/2019 11:58 AM CDT POC GLUCOSE Routine 11/30/2019 11:22 AM CDT POC GLUCOSE Routine 11/30/2019 6:14 AM CDT POC GLUCOSE Routine 11/29/2019 8:00 PM CDT POC GLUCOSE Routine 11/29/2019 4:19 PM CDT POC GLUCOSE Routine 11/29/2019 11:21 AM CDT POC GLUCOSE Routine 11/29/2019 6:01 AM CDT POC GLUCOSE Routine 11/28/2019 9:02 PM CDT POC GLUCOSE Routine 11/28/2019 11:18 AM CDT POC GLUCOSE Routine 11/28/2019 5:41 AM CDT POC GLUCOSE Routine 11/27/2019 7:24 PM CDT POC GLUCOSE Routine 11/27/2019 3:54 PM CDT POC GLUCOSE Routine 11/27/2019 11:34 AM CDT POC GLUCOSE Routine 11/27/2019 6:02 AM CDT POC GLUCOSE Routine 11/26/2019 8:55 PM CDT IR REVASC TIB PER INITIAL Routine 11/26/2019 VESSEL W ATHER LEFT 6:25 PM CDT IR REVASC FEM POPL W Routine 11/26/2019 ATHER LEFT 6:25 PM CDT IR REVASC TIB PER W TLA Routine 11/26/2019 ADD-ON LEFT 6:25 PM CDT IR ABDOMINAL AORTOGRAM Routine 11/26/2019 6:25 PM CDT US GUIDED VASCULAR ACCESS Routine 11/26/2019 6:25 PM CDT IR BILATERAL LOWER Routine 11/26/2019 EXTREMITY ARTERIOGRAM 6:25 PM CDT POC GLUCOSE Routine 11/26/2019 5:44 PM CDT POC GLUCOSE Routine 11/26/2019 12:02 PM CDT MANUAL DIFFERENTIAL Routine 11/26/2019 7:00 AM CDT ESTIMATED GFR Routine 11/26/2019 7:00 AM CDT PROTHROMBIN TIME WITH INR Routine 11/26/2019 7:00 AM CDT PARTIAL THROMBOPLASTIN Routine 11/26/2019 TIME (PTT) 7:00 AM CDT COMPREHENSIVE METABOLIC Routine 11/26/2019 PANEL 7:00 AM CDT CBC WITH PLATELET AND Routine 11/26/2019 DIFFERENTIAL 7:00 AM CDT POC GLUCOSE Routine 11/26/2019 6:27 AM CDT POC GLUCOSE Routine 11/25/2019 8:13 PM CDT US DUPLEX ARTERIAL LOWER Routine 11/25/2019 EXTREMITY BILATERAL 12:36 PM CDT POC GLUCOSE Routine 11/25/2019 10:48 AM CDT MANUAL DIFFERENTIAL Routine 11/25/2019 6:00 AM CDT ESTIMATED GFR Routine 11/25/2019 6:00 AM CDT COMPREHENSIVE METABOLIC Routine 11/25/2019 PANEL 6:00 AM CDT CBC WITH PLATELET AND Routine 11/25/2019 DIFFERENTIAL 6:00 AM CDT CREATINE KINASE, TOTAL Routine 11/25/2019 (CPK) 6:00 AM CDT POC GLUCOSE Routine 11/25/2019 5:42 AM CDT URINALYSIS, AUTOMATED Routine 11/25/2019 WITH MICROSCOPY 2:20 AM CDT POC GLUCOSE Routine 11/24/2019 8:[address] ANGIOGRAM ABDOMINAL STAT 11/24/2019 AORTA AND BILATERAL 6:39 PM CDT ILIOFEMORAL RUNOFF W WO CONTRAST IR PICC PLACEMENT Routine 11/24/2019 5:44 PM CDT POC GLUCOSE Routine 11/24/2019 4:14 PM CDT POC GLUCOSE Routine 11/24/2019 11:09 AM CDT POC GLUCOSE Routine 11/24/2019 5:36 AM CDT VANCOMYCIN LEVEL, TROUGH Routine 11/23/2019 11:37 PM CDT MANUAL DIFFERENTIAL Routine 11/23/2019 11:13 PM CDT ESTIMATED GFR Routine 11/23/2019 11:13 PM CDT COMPREHENSIVE METABOLIC Routine 11/23/2019 PANEL 11:13 PM CDT CBC WITH PLATELET AND Routine 11/23/2019 DIFFERENTIAL 11:13 PM CDT POC GLUCOSE Routine 11/23/2019 8:21 PM CDT POC GLUCOSE Routine 11/23/2019 4:17 PM CDT PA AN ELECTIVE Routine 11/23/2019 ENDOTRACHEAL AIRWAY 2:03 PM CDT RESECTION, COLON, LOW 11/23/2019 PERFORATED COLO N ANTERIOR, LAPAROSCOPIC 12:49 PM CDT Special Needs PT HAS A PACEMAKER POC GLUCOSE Routine 11/23/2019 11:30 AM CDT POC GLUCOSE Routine 11/23/2019 6:02 AM CDT MANUAL DIFFERENTIAL Routine 11/23/2019 5:15 AM CDT ESTIMATED GFR Routine 11/23/2019 5:15 AM CDT CBC WITH PLATELET AND Routine 11/23/2019 DIFFERENTIAL 5:15 AM CDT BASIC METABOLIC PANEL Routine 11/23/2019 5:15 AM CDT POC GLUCOSE Routine 11/22/2019 7:52 PM CDT POC GLUCOSE Routine 11/22/2019 4:30 PM CDT TRANSFUSE RED BLOOD CELLS Routine 11/22/2019 3:44 PM CDT POC GLUCOSE Routine 11/22/2019 11:59 AM CDT PREPARE RBC Routine 11/22/2019 8:06 AM CDT TYPE AND SCREEN Routine 11/22/2019 8:06 AM CDT POC GLUCOSE Routine 11/22/2019 5:01 AM CDT MANUAL DIFFERENTIAL Routine 11/22/2019 4:54 AM CDT ESTIMATED GFR Routine 11/22/2019 4:54 AM CDT COMPREHENSIVE METABOLIC Routine 11/22/2019 PANEL 4:54 AM CDT CBC WITH PLATELET AND Routine 11/22/2019 DIFFERENTIAL 4:54 AM CDT POC GLUCOSE Routine 11/21/2019 8:02 PM CDT POC GLUCOSE Routine 11/21/2019 3:59 PM CDT VANCOMYCIN LEVEL, TROUGH Timed 11/21/2019 12:31 PM CDT POC GLUCOSE Routine 11/21/2019 11:27 AM CDT POC GLUCOSE Routine 11/21/2019 10:33 AM CDT AEROBIC CULTURE Timed 11/21/2019 9:42 AM CDT FUNGUS CULTURE Timed 11/21/2019 9:42 AM CDT ANAEROBIC CULTURE Timed 11/21/2019 9:42 AM CDT SURGICAL PATHOLOGY Routine 11/21/2019 REQUEST 9:11 AM CDT PA AN ELECTIVE Routine 11/21/[address] SU[address]LOTTIC AIRWAY 8:26 AM CDT DEBRIDEMENT 11/21/2019 Decubitus Ulcer of sacrum 8:16 AM CDT POC GLUCOSE Routine 11/21/2019 6:05 AM CDT ESTIMATED GFR Routine 11/21/2019 5:55 AM CDT BASIC METABOLIC PANEL Routine 11/21/2019 5:55 AM CDT POC GLUCOSE Routine 11/20/2019 4:40 PM CDT URINE CULTURE Routine 11/20/2019 12:15 PM CDT URINALYSIS SCREEN AND Routine 11/20/2019 MICROSCOPY, WITH REFLEX 11:58 AM CDT TO CULTURE POC GLUCOSE Routine 11/20/2019 10:43 AM CDT POC GLUCOSE Routine 11/20/2019 5:[address] PELVIS W CONTRAST Routine 11/19/2019 10:24 PM CDT POC GLUCOSE Routine 11/19/2019 8:48 PM CDT POC GLUCOSE Routine 11/19/2019 3:54 PM CDT POC GLUCOSE Routine 11/19/2019 11:35 AM CDT TTE COMPLETE, WO STAT 11/19/2019 CONTRAST, W DOPPLER 9:01 AM CDT (04131) POC GLUCOSE Routine 11/19/2019 5:33 AM CDT POC GLUCOSE Routine 11/18/2019 8:38 PM CDT POC GLUCOSE Routine 11/18/2019 4:34 PM CDT PV PHYSIOLOGIC ARTERIAL Routine 11/18/2019 LOWER EXTREMITY COMPLETE 3:25 PM CDT XR SACRUM AND COCCYX Routine 11/18/2019 1:38 PM CDT XR FOOT 3+ VW RIGHT Routine 11/18/2019 1:37 PM CDT POC GLUCOSE Routine 11/18/2019 11:34 AM CDT POC GLUCOSE Routine 11/18/2019 5:29 AM CDT POC GLUCOSE Routine 11/17/2019 9:21 PM CDT LACTIC ACID LEVEL, SEPSIS Timed 11/17/2019 - NOW AND REPEAT 2X EVERY 8:12 PM CDT 3 HOURS TROPONIN Timed 11/17/2019 8:12 PM CDT COVID-19 QUALITATIVE PCR STAT 11/17/2019 5:54 PM CDT LACTIC ACID LEVEL, SEPSIS Timed 11/17/2019 - NOW AND REPEAT 2X EVERY 5:49 PM CDT 3 HOURS TROPONIN Timed 11/17/2019 5:49 PM CDT POC GLUCOSE Routine 11/17/2019 5:19 PM CDT ECG ED PRELIMINARY Routine 11/17/2019 INTERPRETATION 2:43 PM CDT VENOUS BLOOD GAS STAT 11/17/2019 2:39 PM CDT XR CHEST 1 VW PORTABLE STAT 11/17/2019 2:34 PM CDT TYPE AND SCREEN Routine 11/17/2019 2:30 PM CDT BLOOD CULTURE, AEROBIC & Routine 11/17/2019 ANAEROBIC 2:30 PM CDT ESTIMATED GFR STAT 11/17/2019 2:28 PM CDT LACTIC ACID LEVEL, SEPSIS STAT 11/17/2019 - NOW AND REPEAT 2X EVERY 2:28 PM CDT 3 HOURS TROPONIN STAT 11/17/2019 2:28 PM CDT B NATRIURETIC PEPTIDE STAT 11/17/2019 2:28 PM CDT PARTIAL THROMBOPLASTIN STAT 11/17/2019 TIME (PTT) 2:28 PM CDT PROTHROMBIN TIME WITH INR STAT 11/17/2019 2:28 PM CDT HC COMPLETE BLD COUNT STAT 11/17/2019 W/AUTO DIFF 2:28 PM CDT COMPREHENSIVE METABOLIC STAT 11/17/2019 PANEL 2:28 PM CDT BLOOD CULTURE, AEROBIC & Routine 11/17/2019 ANAEROBIC 2:28 PM CDT ECG 12-LEAD STAT 11/17/2019 2:14 PM CDT after 02/17/2019 Results * POC glucose (02/04/2020 11:28 AM BOILER TUBE REAMER) Only the most recent of 341 results within the time period is included. [facility] POC glucose 180 (H) 65 - 99 mg/dL [place] Comment: [facility] performed at [facility],[address], [place] [address] Program Director Name: Ryan Mendoza Device ID: [id number] Chartable: HMW Notified RN Specimen Blood Performing Organization Address City/[facility] P isiah Number [facility] [place] [id number] [place] [address]. [address] AND [address] * Estimated GFR (02/03/2020 4:25 AM BOILER TUBE REAMER) Only the most recent of 23 results within the time period is included. [facility] Estimated GFR 88 mL/min/1.73 m2 [place] Comment: [facility] Interpretation G1 >=90 Normal or high G2 60-89 Mildly decreased G3a 45-59 Mildly to moderately decreased G3b 30-44 Moderately to severely decreased G4 15-29 Severely decreased G5 <15 Kidney failure The eGFR was calculated using the Chronic Kidney Disease Epidemiology Collaboration (CKD-EPI) equation. Interpretation is based on recommendations of the National Kidney Foundation-Kidney Disease Outcomes Quality Initiative (NKF-KDOQI) published in 2014. Specimen Plasma Performing Organization Address City/[facility] P isiah Number [facility] [place] [place] [id number] [place] [address]. [address] AND [facility] [address] * Basic metabolic panel (02/03/2020 4:25 AM BOILER TUBE REAMER) Only the most recent of 14 results within the time period is included. [facility] Sodium 138 135 - 148 mEq/L [facility] Potassium 4.9 3.5 - 5.0 mEq/L [facility] Chloride 103 99 - 109 mEq/L [facility] CO2 26 24 - 31 mEq/L [facility] Anion gap 9@ANIO 7 - 15 mEq/L [facility] BUN 54 (H) 8 - 24 mg/dL [facility] Creatinine 0.73 0.70 - 1.20 mg/dL [facility] Glucose 141 (H) 65 - 99 mg/dL [facility] Calcium 9.1 8.6 - 10.6 mg/dL [facility] Specimen Plasma Performing Organization Address City/[facility]/ZIP Code P isiah Number [facility] [place] [id number] D[address] [place] [id number] PATHOLOGY AND GENOMIC MEDICINE [facility] [id number] [place] [address] * CBC hemogram (02/02/2020 5:00 AM BOILER TUBE REAMER) Only the most recent of 3 results within the time period is included. WBC 8.62 4.50 - 11.00 k/uL [facility] RBC 3.13 (L) 4.40 - 6.00 m/uL [facility] HGB 8.5 (L) 14.0 - 18.0 g/dL [facility] HCT 27.8 (L) 41.0 - 51.0 % [facility] MCV 88.8 82.0 - 100.0 fL [facility] MCH 27.2 27.0 - 34.0 pg [facility] MCHC 30.6 (L) 31.0 - 37.0 g/dL [facility] RDW - SD 55.7 (H) 37.0 - 55.0 fL [facility] MPV 11.7 8.8 - 13.2 fL [facility] Platelet count 209 150 - 400 k/uL [facility] Specimen Plasma Performing Organization Address City/[facility] P isiah Number [facility] [place] [id number] Singh. [place] [phone] PATHOLOGY AND GENOMIC MEDICINE [address] * CBC with platelet and differential (02/01/2020 4:05 AM BOILER TUBE REAMER) Only the most recent of 20 results within the time period is included. WBC 8.65 4.50 - 11.00 k/uL [facility] RBC 2.57 (L) 4.40 - 6.00 m/uL [facility] HGB 7.1 (L) 14.0 - 18.0 g/dL [facility] HCT 22.7 (LL) 41.0 - 51.0 % [place] Comment: [facility] HCT results called to and read HOSPITAL back by RN/BRIDGER KHALIL at 02/01/2020 07:28 by PERICOW_. MCV 88.3 82.0 - 100.0 fL [facility] MCH 27.6 27.0 - 34.0 pg [facility] MCHC 31.3 31.0 - 37.0 g/dL [facility] RDW - SD 54.7 37.0 - 55.0 fL [facility] MPV 11.8 8.8 - 13.2 fL [facility] Platelet count 188 150 - 400 k/uL [facility] Neutrophils 41.1 39.0 - 69.0 % [facility] Lymphocytes 43.9 25.0 - 45.0 % [facility] Monocytes 13.1 (H) 0.0 - 10.0 % [facility] Eosinophils 1.0 0.0 - 5.0 % [facility] Basophils 0.3 0.0 - 1.0 % [facility] Immature 0.6 0.0 - 1.0 % [place] granulocytes [facility] Specimen Plasma Performing Organization Address City/[facility] P isiah Number [facility] [place] [address] [facility] [place] [address] PATHOLOGY AND GENOMIC MEDICINE [facility] [address] [place] [address] [address] [facility] * COVID-19 qualitative PCR (01/21/2020 11:54 AM CDT) Only the most recent of 2 results within the time period is included. Interpretation Negative results do not [place] preclude 2019-nCoV infection [facility] and should not be used as the HOSPITAL sole basis for treatment or other patient management decisions. Negative results must be combined with clinical observations, patient history, and epidemiological information. COVID-19 Not-Detected Not-Detected [place] qualitative PCR [facility] H[facility]PITAL COVID-19 See link below for PDF Lab [place] qualitative PCR ReportComment: Case Number: [facility] [id number] H[facility]PITAL Specimen Nasal swab Performing Organization Address City/[facility]/ZIP [facility] P isiah Number [facility] DEPARTMENT OF [address] [place] [address] PATHOLOGY AND GENOMIC MEDICINE [address] * Thyroid stimulating hormone (01/20/2020 4:35 AM CDT) Only the most recent of 2 results within the time period is included. TSH 6.27 (H) 0.55 - 4.78 uIU/mL [facility] Specimen Serum Performing Organization Address City/[facility]/ZIP Code P isiah Number [facility] [place] [address] PATHOLOGY AND GENOMIC MEDICINE [address] * Phosphorus level (01/20/2020 4:35 AM CDT) Phosphorus 3.7 2.5 - 4.8 mg/dL [facility] Specimen Plasma Performing Organization Address City/[facility] [place] [address] PATHOLOGY AND [facility] [address] * Magnesium level (01/20/2020 4:35 AM CDT) Only the most recent of 5 results within the time period is included. Magnesium 1.6 (L) 1.7 - 2.4 mg/dL [facility] Specimen Plasma Performing Organization Address [facility] [place] [address] PATHOLOGY AND GENOMIC MEDICINE [address] * Comprehensive metabolic panel (01/20/2020 4:35 AM CDT) Only the most recent of 9 results within the time period is included. Sodium 135 135 - 148 mEq/L [facility] Potassium 4.6 3.5 - 5.0 mEq/L [facility] Chloride 98 (L) 99 - 109 mEq/L [facility] CO2 26 24 - 31 mEq/L [facility] Anion gap 11@ANIO 7 - 15 mEq/L [facility] BUN 38 (H) 8 - 24 mg/dL [facility] Creatinine 0.65 (L) 0.70 - 1.20 mg/dL [facility] Glucose 150 (H) 65 - 99 mg/dL [facility] Calcium 8.8 8.6 - 10.6 mg/dL [facility] Protein 6.9 6.3 - 8.2 g/dL [facility] Albumin 2.5 (L) 3.5 - 5.0 g/dL [facility] A/G ratio 0.6 (L) 0.7 - 3.8 [facility] Alkaline 59 30 - 115 U/L [place] phosphatase [facility] AST 29 15 - 46 U/L [facility] ALT 54 10 - 55 U/L [facility] Total bilirubin <0.3 0.2 - 1.2 mg/dL [facility] Specimen Plasma Performing Organization Address City/[facility] P isiah Number [address] [place] [address] PATHOLOGY AND GENOMIC MEDICINE [address] * Creatine kinase, total (CPK) (01/18/2020 4:20 AM CDT) Only the most recent of 8 results within the time period is included. Creatine kinase 23 (L) 35 - 200 U/L [facility] Specimen Blood Performing Organization Address [facility] P isiah Number [address] [place] [address] PATHOLOGY AND GENOMIC MEDICINE [address] * Urinalysis, automated with microscopy (01/11/2020 5:20 AM CDT) Only the most recent of 3 results within the time period is included. Color, UA Yellow [facility] Appearance, UA Clear [facility] Specific 1.019 1.001 - 1.035 [place] gravity, [facility] pH, UA 5.0 5.0 - 8.5 [facility] Protein, UA 1+ (A) Negative [facility] Glucose, UA Negative Negative [facility] Ketones, UA Trace (A) Negative [facility] Bilirubin, UA Negative Negative [facility] Blood, UA Negative Negative [facility] Nitrite, UA Negative Negative [facility] Urobilinogen, <2.0 <2.0 [facility] Leukocyte Negative Negative [place] esterase, [facility] Epithelial <1 /HPF [place] cells, [facility] WBC, UA 4 (H) 0 - 1 /HPF [facility] RBC, UA 8 (H) 0 - 5 /HPF [facility] Bacteria, UA None seen None seen [facility] Hyaline casts, 3-5/lpf /LPF [facility] Yeast, UA None seen [facility] [place] Yeast with None seen [place] [facility] Specimen Urine Performing Organization Address City/State/ZIP Code P isiah Number [facility] [place] [address] [place] [address] PATHOLOGY AND GENOMIC MEDICINE [facility] [address] [place] [address] HOSPITAL * Urine culture (01/05/2020 8:29 PM CDT) Only the most recent of 4 results within the time period is included. Urine culture Mixed tico <=10-3 col/cc [place] isolate Comment: [facility] Specimen Information HOSPITAL Specimen Source: Urine Specimen Site: Catheterized Specimen Urine - Catheterized Performing Organization Address City/[facility]/ZIP Code P isiah Number [facility] DEPARTMENT [address] [place] [address] PATHOLOGY [place] [address] HOSPITAL * Urinalysis screen and microscopy, with reflex to culture (01/05/2020 6:55 PM CDT) Only the most recent of 4 results within the time period is included. Specimen site Catheterized [facility] [place] Color, UA Yellow [facility] [place] Appearance, UA Sl Cloudy [facility] [place] Specific 1.024 1.001 - 1.035 [place] gravity, UA [facility] pH, UA 5.0 5.0 - 8.5 [facility] [place] Protein, UA 1+ (A) Negative [facility] [place] Glucose, UA Negative Negative [facility] [place] Ketones, UA Trace (A) Negative [facility] [place] Bilirubin, UA Negative Negative [facility] [place] Blood, UA Negative Negative [facility] [place] Nitrite, UA Negative Negative [facility] [place] Urobilinogen, <2.0 <2.0 [facility] Leukocyte Large (A) Negative [place] esterase, UA [facility] WBC, UA 129 (H) 0 - 1 /HPF [facility] [place] RBC, UA 18 (H) 0 - 5 /HPF [facility] [place] Bacteria, UA Few None seen [facility] [place] Yeast, UA None seen [facility] [place] Yeast with None seen [place] [facility] Hyaline casts, 3-5/lpf /LPF [facility] Specimen Urine Performing Organization Address City/[facility]/ZIP Code P isiah Number [facility] DEPARTMENT OF [address] [place] [address]. [place] [address] PATHOLOGY AND [facility] [address] * Transfuse RBC (01/03/2020 2:19 AM CDT) Only the most recent of 4 results within the time period is included. * Prepare RBC, 1 Units (01/02/2020 12:00 PM CDT) Only the most recent of 3 results within the time period is included. Product name Red Blood Cells -1, Leukored [facility] Unit number [id number] [facility] [place] Product code [id number] [facility] [place] Dispense status Transfused [facility] [place] Blood [id number] [place] expiration date [facility] Blood type code 0600 [facility] [place] Blood type A NEGATIVE [facility] [place] Compatibility Compatible [facility] [place] Specimen Blood Performing Organization Address [facility] P isiah Number [facility] DEPARTMENT OF [address] [place] [address]. [place] [address] PATH[address] * Type and screen (01/02/2020 12:00 PM CDT) Only the most recent of 4 results within the time period is included. ABO grouping A [facility] [place] Rh type NEG [facility] [place] Antibody screen NEG [place] (gel) [facility] Specimen Blood Performing Organization Address City/[facility]/ZIP [facility] P isiah Number [facility] DEPARTMENT OF [address] [place] [address]. [place] [address] PATHOLOGY AND GENOMIC MEDICINE [address] * Occult blood, stool (12/27/2019 2:10 PM CDT) Pathologist [facility] Occult blood, Negative for occult blood. [place] stool Comment: [facility] Information [facility] Specimen Source: Stool Specimen Site: Nonpreserved Specimen Stool - Nonpreserved Performing Organization Address City/State/ZIP Code [place] [address] [place] [address] PATHOLOGY AND GENOMIC MEDICINE [facility] [address] [address] [place], [place] [address] HOSPITAL * XR Chest 1 Vw Portable (12/16/2019 5:07 AM CDT) Only the most recent of 2 results within the time period is included. Specimen Narrative Performed At EXAM: [facility] XR CHEST 1 VW PORTABLE INDICATION: NEW ADMIT COMPARISON: Chest AP dated 11/17/2019. IMPRESSION: Interval placement right upper extremit y PICC with tip at superior cavoatrial junction. Otherwise unchanged. Left chest AICD with left subclavian ap proach leads overlying right atrium, right ventricle, coronary sinus. Heart size is normal. Moderate atherosc lerosis aortic arch. Moderate degenerative changes thoracic spine. [id number] Procedure Note Hm Interface, Radiology Results Incoming - 12/16/2019 8:18 AM CDT EXAM: XR CHEST 1 VW PORTABLE INDICATION: NEW ADMIT COMPARISON: Chest AP dated 11/17/2019. IMPRESSION: Interval placement right upper extremity PICC with tip at superior cavoatrial junction. Otherwise unchanged. Left chest AICD with left subclavian approach leads overlying right atrium, right ventricle, coronary sinus. Heart size is normal. Moderate atherosclerosis aortic arch. Moderate degenerative changes thoracic spine. [facility]-[id number] Performing Organization Address City/State/ZIP Code P isiah Number [facility] [address] [place] [address] * ECG 12 lead (12/06/2019 2:25 PM CDT) Only the most recent of 2 results within the time period is included. Ventricular 66 [facility] rate Atrial rate 66 [facility] PA interval 160 [facility] QRSD interval 146 [facility] QT interval 514 [facility] QTC interval 538 [facility] P axis 1 75 [facility] QRS axis 1 -48 [facility] T wave axis 103 [facility] EKG impression Electronic ventricular [facility] pacemaker-In automated comparison with ECG of 17-NOV-2019 14:14,-Vent. rate has decreased BY 34 BPM- Specimen Narrative Performed At This result has an attachment that is n ot available. Performing Organization Address City/State/ZIP Code P isiah Number [facility] MUSE [address] [place] [address] * CT Urogram (12/03/2019 10:21 PM CDT) Specimen Narrative Performed At EXAMINATION: CT UROGRAM [facility] CLINICAL HISTORY: 79 years Male Hemat uria unknown cause, gross hematuria. hematuria protocol. TECHNIQUE: CT of the abdomen and pelv is was performed without contrast utilizing renal stone protocol. Subsequ ently, postcontrast CT of the abdomen and pelvis were obtained utilizing a split bolus technique combining nephrographic and delayed phases of contrast administration. Sagittal and c oronal computerized reformatted images were also obtained. CT imaging was pe rformed with iterative reconstruction techniques and/or automated exposure co ntrol to reduce radiation dose. COMPARISON: CTA abdomen/pelvis with r unoff 11/24/2019 IMPRESSION: LUNG BASES: Trace bilateral pleural effusions are p resent. Mild atelectatic changes are noted in both lower lobes. No cardiomeg wili. AICD leads are partially visualized in the right atrium, coronary sinus bra nch, and right ventricle. Coronary artery calcifications are noted. ABDOMEN: Liver: The liver is normal. No focal ma ss. Gallbladder/Biliary: The gallbladder is normal. There is no evidence of intra or extrahepatic biliary ductal dilatation. Spleen: The spleen is not enlarged. Pancreas: The pancreas is unremarkable. Adrenal Glands: The adrenal glands are unremarkable. Kidneys: A simple cyst in the right kid kori measures 1.4 cm. An additional indeterminate lesion is seen adjacently along the interpolar region of the right renal pelvis measuring 1.6 cm. A simple cyst along the upper pole of the right kidney measures 1.3 cm. No nephrolithiasis or hydronephrosi s is noted bilaterally. Vascular: Scattered atherosclerotic miguel cification affects the abdominal aorta and its major branches. Nodes: No enlarged retroperitoneal or m esenteric lymphadenopathy. Bowel: Postsurgical changes of sigmoid colon resection are seen with a left lower quadrant colostomy in place. A fe w prominent fluid-filled loops of small bowel are seen throughout the abdomen w ithout significant adjacent inflammatory changes. No definitive evidence of bowel obstructio n is seen. The appendix is not clearly identified. Ascites/fluid collections: No ascites o r fluid collections. PELVIS: The prostate is enlarged measuring up t o 6 cm in the transverse dimension. There is mild thickening and distention of th e urinary bladder. There is faint contrast excretion within the urinary b ladder on postcontrast images. No definitive bladder mass identified. MUSCULOSKELETAL: Sacral decubitus ulceration is again no tati along the superior margin of the gluteal cleft with adjacent erosive armani nges involving the coccyx. There is suspected packing material within the u lceration. Moderate osteoarthrosis of the bilatera l hip joints are noted. Moderate degenerative changes affect the spine. SUMMARY: 1.Mild thickening and distention of the urinary bladder, likely secondary to chronic bladder outlet obstruction from the enlarged prostate gland. No definitive bladder mass identified. Cys titis cannot be excluded. Correlation with urinalysis is recommended. 2.Indeterminate lesion in the midpole o f the right kidney measuring 1.6 cm. Further evaluation is recommended with a nonemergent MRI abdomen using renal mass protocol. 3.Mildly prominent fluid-filled loops o f small bowel throughout the abdomen without significant adjacent inflammato ry change, nonspecific, but can be seen with a mild enteritis. 4.Left lower quadrant colostomy. 5.Sacral decubitus ulceration with unde rlying osteomyelitis of the coccyx. [id number] Procedure Note Hm Interface, Radiology Results Incoming - 12/04/2019 12:02 AM CDT EXAMINATION: CT UROGRAM CLINICAL HISTORY: 79 years Male Hematuria unknown cause, gross hematuria. hematuria protocol. TECHNIQUE: CT of the abdomen and pelvis was performed without contrast utilizing renal stone protocol. Subsequently, postcontrast CT of the abdomen and pelvis were obtained utilizing a split bolus technique combining nephrographic and delayed phases of contrast administration. Sagittal and coronal computerized reformatted images were also obtained. CT imaging was performed with iterative reconstruction techniques and/or automated exposure control to reduce radiation dose. COMPARISON: CTA abdomen/pelvis with runoff 11/24/2019 IMPRESSION: LUNG BASES: Trace bilateral pleural effusions are present. Mild atelectatic changes are noted in both lower lobes. No cardiomegaly. AICD leads are partially visualized in the right atrium, coronary sinus branch, and right ventricle. Coronary artery calcifications are noted. ABDOMEN: Liver: The liver is normal. No focal mass. Gallbladder/Biliary: The gallbladder is normal. There is no evidence of intra or extrahepatic biliary ductal dilatation. Spleen: The spleen is not enlarged. Pancreas: The pancreas is unremarkable. Adrenal Glands: The adrenal glands are unremarkable. Kidneys: A simple cyst in the right kidney measures 1.4 cm. An additional indeterminate lesion is seen adjacently along the interpolar region of the right renal pelvis measuring 1.6 cm. A simple cyst along the upper pole of the right kidney measures 1.3 cm. No nephrolithiasis or hydronephrosis is noted bilaterally. Vascular: Scattered atherosclerotic calcification affects the abdominal aorta and its major branches. Nodes: No enlarged retroperitoneal or mesenteric lymphadenopathy. Bowel: Postsurgical changes of sigmoid colon resection are seen with a left lower quadrant colostomy in place. A few prominent fluid-filled loops of small bowel are seen throughout the abdomen without significant adjacent inflammatory changes. No definitive evidence of bowel obstruction is seen. The appendix is not clearly identified. Ascites/fluid collections: No ascites or fluid collections. PELVIS: The prostate is enlarged measuring up to 6 cm in the transverse dimension. There is mild thickening and distention of the urinary bladder. There is faint contrast excretion within the urinary bladder on postcontrast images. No definitive bladder mass identified. MUSCULOSKELETAL: Sacral decubitus ulceration is again noted along the superior margin of the gluteal cleft with adjacent erosive changes involving the coccyx. There is suspected packing material within the ulceration. Moderate osteoarthrosis of the bilateral hip joints are noted. Moderate degenerative changes affect the spine. SUMMARY: 1.Mild thickening and distention of the urinary bladder, likely secondary to chronic bladder outlet obstruction from the enlarged prostate gland. No definitive bladder mass identified. Cystitis cannot be excluded. Correlation with urinalysis is recommended. 2.Indeterminate lesion in the midpole of the right kidney measuring 1.6 cm. Further evaluation is recommended with a nonemergent MRI abdomen using renal mass protocol. 3.Mildly prominent fluid-filled loops of small bowel throughout the abdomen without significant adjacent inflammatory change, nonspecific, but can be seen with a mild enteritis. 4.Left lower quadrant colostomy. 5.Sacral decubitus ulceration with under lying osteomyelitis of the coccyx. [id number] Performing Organization Address City/State/ZIP Code P isiah Number [facility] [address] [place] [address] * IR Bilateral Lower Extremity Arteriogram (11/26/2019 6:25 PM CDT) Specimen Narrative Performed At PROCEDURE: IR BILATERAL LOWER EXTREMITY ARTERIOGRAM [facility] This exam was performed in the Radiolog y department. Fluoro time: 24:31 minutes IMPRESSION: A complete separate report will be issu ed in operative notes by the performing physician. [id number] Procedure Note Interface, Radiology Results Incoming - 11/29/2019 7:59 AM CDT PROCEDURE: IR BILATERAL LOWER EXTREMITY ARTERIOGRAM This exam was performed in the Radiology department. Fluoro time: 24:31 minutes IMPRESSION: A complete separate report will be issued in operative notes by the performing physician. [id number] Performing Organization Address [facility] P isiah Number [facility] [address] [place] [address] * IR Revasc Tib Per W Tla Add-On Left (11/26/2019 6:25 PM CDT) Specimen Narrative Performed At PROCEDURE: IR REVASC TIB PER W TLA ADD-ON LEFT [facility] This exam was performed in the Radiolog y department. Fluoro time: 24:31 minutes IMPRESSION: A complete separate report will be issu ed in operative notes by the performing physician. [id number] Procedure Note Interface, Radiology Results Incoming - 11/29/2019 8:00 AM CDT PROCEDURE: IR REVASC TIB PER W TLA ADD-ON LEFT This exam was performed in the Radiology department. Fluoro time: 24:31 minutes IMPRESSION: A complete separate report will be issued in operative notes by the performing physician. [id number] Performing Organization Address [facility] P isiah Number [facility] [address] [place] [address] * IR Revasc Tib Per Initial Vessel W Ather Left (11/26/2019 6:25 PM CDT) Specimen Narrative Performed At PROCEDURE: IR REVASC TIB PER INITIAL VESSEL W ATHER LEFT [facility] This exam was performed in the Radiolog y department. Fluoro time: 24:31 minutes IMPRESSION: A complete separate report will be issu ed in operative notes by the performing physician. [id number] Procedure Note Interface, Radiology Results Incoming - 11/29/2019 8:00 AM CDT PROCEDURE: IR REVASC TIB PER INITIAL VESSEL W ATHER LEFT This exam was performed in the Radiology department. Fluoro time: 24:31 minutes IMPRESSION: A complete separate report will be issued in operative notes by the performing physician. [id number] Performing Organization Address [facility] P isiah Number [facility] [address] [place] [address] * IR Revasc Fem Popl W Ather Left (11/26/2019 6:25 PM CDT) Specimen Narrative Performed At PROCEDURE: IR REV ASC FEM POPL W ATHER LEFT [facility] This exam was performed in the Radiolog y department. Fluoro time: 24:31 minutes IMPRESSION: A complete separate report will be issu ed in operative notes by the performing physician. [id number] Procedure Note Hm Interface, Radiology Results Incoming - 11/29/2019 8:00 AM CDT PROCEDURE: IR REV ASC FEM POPL W ATHER LEFT This exam was performed in the Radiology department. Fluoro time: 24:31 minutes IMPRESSION: A complete separate report will be issued in operative notes by the performing physician. [id number] Performing Organization Address [facility] Code P isiah Number [facility] [address] [place] [address] * IR Aortogram Abdominal (11/26/2019 6:25 PM CDT) Specimen Narrative Performed At PROCEDURE: IR ABDOMINAL AORTOGRAM [facility] This exam was performed in the Radiolog y department. Fluoro time: 24:31 minutes IMPRESSION: A complete separate report will be issu ed in operative notes by the performing physician. [id number] Procedure Note Interface, Radiology Results Incoming - 11/29/2019 8:00 AM CDT PROCEDURE: IR ABDOMINAL AORTOGRAM This exam was performed in the Radiology department. Fluoro time: 24:31 minutes IMPRESSION: A complete separate report will be issued in operative notes by the performing physician. [id number] Performing Organization Address [facility] Code P isiah Number [facility] [address] [place] [address] * US Guided Vascular Access (11/26/2019 6:25 PM CDT) Specimen Narrative Performed At PROCEDURE: US GUIDED VASCULAR ACCESS [facility] This exam was performed in the Radiolog y department. IMPRESSION: A complete separate report will be issu ed in operative notes by the performing physician. [id number] Procedure Note Interface, Radiology Results Incoming - 11/29/2019 8:00 AM CDT PROCEDURE: US GUIDED VASCULAR ACCESS This exam was performed in the Radiology department. IMPRESSION: A complete separate report will be issued in operative notes by the performing physician. [id number] Performing Organization Address [facility] Code P isiah Number [facility] [address] [place] [address] * Manual differential (11/26/2019 7:00 AM CDT) Only the most recent of 5 results within the time period is included. Manual PERFORMED [place] differential [facility] Neutrophils 74.0 (H) 39.0 - 69.0 % [facility] Lymphocytes 21.0 (L) 25.0 - 45.0 % [facility] Monocytes 5.0 0.0 - 10.0 % [facility] Eosinophils 0.0 0.0 - 5.0 % [facility] Basophils 0.0 0.0 - 1.0 % [facility] Metamyelocytes 0 % [facility] Promyelocytes 0 % [facility] Platelet slide Miya adequate [place] review [facility] Anisocytosis Moderate [facility] Specimen Performing Organization Address [facility] P isiah Number [facility] OF [address] [place] [address] [place] [address] PATHOLOGY AND [facility] [address] * Partial thromboplastin time, activated (11/26/2019 7:00 AM CDT) Only the most recent of 2 results within the time period is included. PTT 35.9 23.0 - 36.0 sec [place] Comment: [facility] PTT therapeutic range for [facility] unfractionated heparin is 61.0-112.0 seconds which corresponds to Anti-Xa 0.3-0.7 U/ml. Specimen Blood Performing Organization Address [facility] P isiah Number [facility] OF [address] [place] [address] PATHOLOGY AND [facility] [address] * Prothrombin time with INR (11/26/2019 7:00 AM CDT) Only the most recent of 2 results within the time period is included. Prothrombin 14.5 11.5 - 14.5 sec [facility] INR 1.1 [place] Comment: [facility] The International Normalized [facility] Ratio (INR) is a therapeutic monitoring tool for patients who are stable on oral anticoagulant therapy. An INR of 2.0-3.0 is suggested for deep vein thrombosis/pulmonary embolism. Specimen Blood Performing Organization Address City/[facility] P isiah Number [facility] [place] [address] [place] [address] PATHOLOGY AND GENOMIC MEDICINE [facility] [address] [place] [address] [facility] * duplex arterial lower extremity (11/25/2019 12:36 PM CDT) Left tib/per 112 cm/s [facility] trunk sys PSV RT ATIB DIST 108.20 cm/s [facility] PSV RT ATIB MID PSV 66.20 cm/s [facility] RT ATIB PROX 30.5 cm/s [facility] PSV RT PROX [employer] PSV 98.6 cm/s [facility] LT VIDHI PROX 52.1 cm/s [facility] PSV LT POP DIST PSV 96.4 cm/s [facility] LT POP PROX PSV 150.8 cm/s [facility] LT DINKEY [employer]RAK[employer]AN DIST PSV 0.00 cm/s [facility] LT [employer] MID PSV 18.50 cm/s [facility] LT DIN[employer] PROX PSV 100.9 cm/s [facility] RT DINKEY [employer]RAKEMAN DIST PSV 19.40 cm/s [facility] RT [employer] MID PSV 19.80 cm/s [facility] RT DINKEY [employer] PROX PSV 36.5 cm/s [facility] LT SFA DIST PSV 194.90 cm/s [facility] LT SFA MID PSV 82.6 cm/s [facility] LT SFA PROX PSV 88.1 cm/s [facility] RT SFA DIST PSV 53.1 cm/s [facility] RT SFA MID PSV 71.6 cm/s [facility] RT SFA PROX PSV 74 cm/s [facility] L POP MID PSV 88.70 cm/s [facility] L PFA PROX PSV 106.3 cm/s [facility] R PFA PROX PSV 64.2 cm/s [facility] RT DIST [employer] PSV 77.7 cm/s [facility] LT DIST [employer] PSV 119.2 cm/s [facility] RT MID VIDHI PSV 30.1 cm/s [facility] Specimen Narrative Performed At [facility] Bilateral lower extremity arterial dupl ex exam shows evidence of scattered arterial wall calcifications. RIGHT Less than 50% stenosis within the dista l right anterior tibial artery. (Ratio 1.6). High resistive waveforms in the distal posterior tibial artery suggestive of a outflow stenosis. LEFT 50 to 75% stenosis within the distal loza perficial femoral artery. 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 (Ratio 2.5) Less than 50% stenosis within the proxi mal left popliteal artery. (Ratio 1.4) Occlusion of the left distal posterior tibial artery. Anterior tibial artery was not well exa mined for the patient had requested to hold the examination. Performing Organization Address City/State/ZIP Code P isiah Number [facility] [address] [place] [address], [place] * CTA Abdominal Aorta And Bilateral Iliofemoral Runoff W Wo Contrast (11/24/2019 6:39 PM CDT) Specimen Narrative Performed At CT ANGIOGRAM ABDOMINAL AORTA AND BILATERAL ILIOFEMORA L RUNOFF W WO CONTRAST [facility] CLINICAL INDICATION: PAD chronic nonh ealing ulcer TECHNIQUE: CT angiography of the abdome n and pelvis was performed following the intravenous administration of iodinated contrast material and with runoff of the lower extremities with automated exposu re control and/or iterative reconstruction techniques to radiation dose. In additio n, postprocessed 3D MIP and volume rendered images were also performed spe cifically for CT angiography. COMPARISON: 07/20/2019 FINDINGS: Please note, while this is a CT angiogr am, the contrast bolus timing is suboptimal through the pelvis and dista l extremities with very poor opacification which may be technical wi th the scanner outrunning the contrast bolus. AORTA: Aorta is normal in caliber with moderately advanced eccentric atherosclerotic plaque. No aneurysm, ul ceration, or significant stenosis. MESENTERIC ARTERIES: The celiac axis, s uperior mesenteric artery, and inferior mesenteric artery are patent without si gnificant stenosis. RENAL ARTERIES: Single bilateral pineda nt renal arteries are present bilaterally. ------ RIGHT ILIAC ARTERIES: Right common, i nternal, and external iliac arteries are patent with mild eccentric plaque throu gh the external iliac artery, moderate disease present through the internal il iac. Right common femoral artery is patent with mild nonrate limiting plaque noted. RIGHT EXTREMITY RUNOFF: Evaluation is limited given degree of calcification as well as contrast. I do not believe I ca n reliably assess areas of stenosis which are suspected with extensive calcificat ions and areas of at least moderate stenosis. Ultrasound evaluation may be helpful to assess for flow to the lower extremity. MR can also be performed where as it is less susceptible to the degree of calcification and assessment of calf ve ssel patency. ----- LEFT ILIAC ARTERIES: Left common garry c artery is patent as are the internal and external iliac arteries with minima l plaque through the distal external iliac. LEFT EXTREMITY RUNOFF: Left common fe moral artery is patent with mild stenosis. Superficial femoral and profu nda femoral appear patent proximally but there is very limited contrast within t he femoral artery with areas of suspected moderate stenosis. Very limited assessment noted through t he popliteal artery and arteries of the calf given severe calcification and con trast bolus. ----- OTHER FINDINGS: ABDOMEN: The liver, spleen, pancreas, adrenal glands, and kidneys are without suspicious mass, 1.5 x 1.6 cm cyst note d in the interpolar right kidney. There is mild prominence of the bilateral daniel al collecting systems which given asymmetry may reflect changes of bladder outlet obstruction o r neurogenic bladder, the latter favored given prostatomegaly. No significant pe rinephric stranding. The gallbladder is distended, correlate for nothing by jewel th status. Bowel is normal in caliber without wall thickening or inflammatory changes. A r ectosigmoid pouch is noted in the pelvis with diverting left-sided colostomy. Mo derate fecal debris noted through the colon. No pathological lymphadenopathy or ascites. PELVIS: Urinary bladder is distended with wall thickening. The prostate is markedly enlarged and measures 4.6 x 6. 0 x 5.7 cm. No free fluid through the pelvis. No suspicious adenopathy. MUSCULOSKELETAL: Mild to moderate tho racolumbar spondylosis is present. Fatty infiltration of pelvic and thigh muscul ature suggestive of disuse. Sacral decubitus ulceration is noted extending to bone with sclerosis along the dorsal margin of the distal sacrum with focal osteolysis consistent with osteomyelitis (series 2 image 179). Moderate osteoarthrosis of the hips. Am putation of the right fifth ray is noted about the metatarsal midshaft, correlat e with history and radiographs. No overlying soft tissue ulceration is identified. Promin ent ossification and thickening of the Achilles tendon are consistent with sev ere tendinosis. There is asymmetric soft tissue edema throughout the left calf. LUNG BASES: The heart is moderately e nlarged with multiple cardiac leads partially visualized. Small bilateral p leural effusions noted with basilar atelectasis. IMPRESSION: 1.Unremarkable CT angiogram of the aort a and iliac vessels. No findings for inflow disease with atherosclerotic hector que noted. 2.Extensive severe atherosclerosis of t he femoral-popliteal arteries and arteries of the bilateral calves. Diagn ostic PVD evaluation for stenosis is severely limited given the contrast guzman us timing as well as degree of calcification. If there is concern for significant disease, ultrasound or MRI with MR angiography could be performed for further characterization, at least moderate disease suspected but not well characterized. Catheter angiog marv could be performed in follow-up alternatively. 3.Asymmetric soft tissue edema througho ut the left lower extremity. 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 No overlying ulceration is identified. 5.Sacral decubitus ulcer with osteomyel itis of the sacrum. 6.Prostatomegaly with findings consiste nt with bladder outlet obstruction. Left diverting colostomy and multiple other findings as described. Please see report. *[id number] Procedure Note Hm Interface, Radiology Results Incoming - 11/24/2019 7:[address] ANGIOGRAM ABDOMINAL AORTA AND BILATERAL ILIOFEMORAL RUNOFF W WO CONTRAST CLINICAL INDICATION: PAD chronic nonhealing ulcer TECHNIQUE: CT angiography of the abdomen and pelvis was performed following the intravenous administration of iodinated contrast material and with runoff of the lower extremities with automated exposure control and/or iterative reconstruction techniques to radiation dose. In addition, postprocessed 3D MIP and volume rendered images were also performed specifically for CT angiography. COMPARISON: 07/20/2019 FINDINGS: Please note, while this is a CT angiogram, the contrast bolus timing is suboptimal through the pelvis and distal extremities with very poor opacification which may be technical with the scanner outrunning the contrast bolus. AORTA: Aorta is normal in caliber with moderately advanced eccentric atherosclerotic plaque. No aneurysm, ulceration, or significant stenosis. MESENTERIC ARTERIES: The celiac axis, superior mesenteric artery, and inferior mesenteric artery are patent without significant stenosis. RENAL ARTERIES: Single bilateral patent renal arteries are present bilaterally. ------ RIGHT ILIAC ARTERIES: Right common, internal, and external iliac arteries are patent with mild eccentric plaque through the external iliac artery, moderate disease present through the internal iliac. Right common femoral artery is patent with mild nonrate limiting plaque noted. RIGHT EXTREMITY RUNOFF: Evaluation is limited given degree of calcification as well as contrast. I do not believe I can reliably assess areas of stenosis which are suspected with extensive calcifications and areas of at least moderate stenosis. Ultrasound evaluation may be helpful to assess for flow to the lower extremity. MR can also be performed where as it is less susceptible to the degree of calcification and assessment of calf vessel patency. ----- LEFT ILIAC ARTERIES: Left common iliac artery is patent as are the internal and external iliac arteries with minimal plaque through the distal external iliac. LEFT EXTREMITY RUNOFF: Left common femoral artery is patent with mild stenosis. Superficial femoral and profunda femoral appear patent proximally but there is very limited contrast within the femoral artery with areas of suspected moderate stenosis. Very limited assessment noted through the popliteal artery and arteries of the calf given severe calcification and contrast bolus. ----- OTHER FINDINGS: ABDOMEN: The liver, spleen, pancreas, adrenal glands, and kidneys are without suspicious mass, 1.5 x 1.6 cm cyst noted in the interpolar right kidney. There is mild prominence of the bilateral renal collecting systems which given asymmetry may reflect changes of bladder outlet obstruction or neurogenic bladder, the latter favored given prostatomegaly. No significant perinephric stranding. The gallbladder is distended, correlate for nothing by mouth status. Bowel is normal in caliber without wall thickening or inflammatory changes. A rectosigmoid pouch is noted in the pelvis with diverting left-sided colostomy. Moderate fecal debris noted through the colon. No pathological lymphadenopathy or ascites. PELVIS: Urinary bladder is distended with wall thickening. The prostate is markedly enlarged and measures 4.6 x 6.0 x 5.7 cm. No free fluid through the pelvis. No suspicious adenopathy. MUSCULOSKELETAL: Mild to moderate thoracolumbar spondylosis is present. Fatty infiltration of pelvic and thigh musculature suggestive of disuse. Sacral decubitus ulceration is noted extending to bone with sclerosis along the dorsal margin of the distal sacrum with focal osteolysis consistent with osteomyelitis (series 2 image 179). Moderate osteoarthrosis of the hips. 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 No overlying soft tissue ulceration is identified. Prominent ossification and thickening of the Achilles tendon are consistent with severe tendinosis. There is asymmetric soft tissue edema throughout the left calf. LUNG BASES: The heart is moderately enlarged with multiple cardiac leads partially visualized. Small bilateral pleural effusions noted with basilar atelectasis. IMPRESSION: 1.Unremarkable CT angiogram of the aorta and iliac vessels. No findings for inflow disease with atherosclerotic plaque noted. 2.Extensive severe atherosclerosis of th e femoral-popliteal arteries and arteries of the bilateral calves. Diagnostic PVD evaluation for stenosis is severely limited given the contrast bolus timing as well as degree of calcification. If there is concern for significant disease, ultrasound or MRI with MR angiography could be performed for further characterization, at least moderate disease suspected but not well characterized. Catheter angiography could be performed in follow-up alternatively. 3.Asymmetric soft tissue edema throughou t the left lower extremity. 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 No overlying ulceration is identified. 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 6.Prostatomegaly with findings consisten t with bladder outlet obstruction. Left diverting colostomy and multiple other findings as described. Please see report. *[id number] Performing Organization Address City/State/ZIP Code P isiah Number HAKEEM HOGAN [address] [place] [address] * IR PICC Placement (11/24/2019 5:44 PM CDT) Specimen Narrative Performed At PERFORMING RADIOLOGIST: HAKEEM Xavier MD ASSISTANTS: None. ANESTHESIA TYPE: No sedation was provided. Lidocaine 1% was used for local anesthetic. ANTIBIOTICS: None. PRE PROCEDURE DIAGNOSIS: Need for long-term central venous acces s. POST PROCEDURE DIAGNOSIS: Status post placement right upper extre mity PICC. PROCEDURE: 1. Limited preprocedure ultrasound of t he upper extremity. 2. Successful placement right upper ext remity PICC. TECHNIQUE: Written informed consent was obtained p rior to the procedure. Limited preprocedure ultrasound of the upper ex tremity was performed. The right basilic vein was identified as a suitable targe t. Then, the right upper extremity was sterilely prepared and draped in the routine manner. Maximal s terile barrier, hand hygiene, skin preparation technique was followed. Und er ultrasound guidance, documentation of vessel patency, needle access with perm anent recording, and reporting are performed followed by placement of a sheath in the aforementi oned vein. Using real-time ultrasound guidance, ov erlying soft tissues were anesthetized with Lidocaine 1% via a 25-gauge needle . Then, also using real-time ultrasound guidance, a 21-gauge micropuncture need le was used to access the aforementioned vein. A 0.018 inch guidewire was advanced centrally t o the right atrium under fluoroscopy. The needle was removed and a 5.5-Venezuelan pee l-away sheath was then placed. A 47 cm long 5-Venezuelan dual-lumen Power PICC was then deployed over the guidewire and through the peel-away sheath. The c atheter tip was placed at the right atrium/superior vena cava junction un ela fluoroscopic guidance. All ports were tested and demonstrate a dequate flow. The catheter was secured to then skin using 2-0 silk suture. The pa tient tolerated the procedure well. COMPLICATIONS: None. RADIATION DOSE: Ka,r = 3.76 mGy. IMPRESSION: Successful ultrasound and fluoroscopic- guided placement of a 47 cm long 5 Venezuelan dual-lumen Power PICC via the right bas ilic vein. The catheter tip lies at the right atrium/superior vena cava junctio n . PLAN: - PICC is ready for immediate use. - Recommend routine dressing changes an d flushing with 10 cc normal saline after use. [facility]-[id number] Procedure Note Hm Interface, Radiology Results Incoming - 11/26/2019 9:55 AM CDT PERFORMING RADIOLOGIST: Shiva Xavier MD ASSISTANTS: None. ANESTHESIA TYPE: No sedation was provided. Lidocaine 1% was used for local anesthetic. ANTIBIOTICS: None. PRE PROCEDURE DIAGNOSIS: Need for long-term central venous access. POST PROCEDURE DIAGNOSIS: Status post placement right upper extremity PICC. PROCEDURE: 1. Limited preprocedure ultrasound of th e upper extremity. 2. Successful placement right upper extr emity PICC. TECHNIQUE: Written informed consent was obtained prior to the procedure. Limited preprocedure ultrasound of the upper extremity was performed. The right basilic vein was identified as a suitable target. Then, the right upper extremity was sterilely prepared and draped in the routine manner. Maximal sterile barrier, hand hygiene, skin preparation technique was followed. Under ultrasound guidance, documentation of vessel patency, needle access with permanent recording, and reporting are performed followed by placement of a sheath in the aforementioned vein. Using real-time ultrasound guidance, overlying soft tissues were anesthetized with Lidocaine 1% via a 25-gauge needle. Then, also using real-time ultrasound guidance, a 21-gauge micropuncture needle was used to access the aforementioned vein. A 0.018 inch guidewire was advanced centrally to the right atrium under fluoroscopy. The needle was removed and a 5.5-Venezuelan peel-away sheath was then placed. A 47 cm long 5-Venezuelan dual-lumen Power PICC was then deployed over the guidewire and through the peel-away sheath. The catheter tip was placed at the right atrium/superior vena cava junction under fluoroscopic guidance. All ports were tested and demonstrate adequate flow. The catheter was secured to then skin using 2-0 silk suture. The patient tolerated the procedure well. COMPLICATIONS: None. RADIATION DOSE: Ka,r = 3.76 mGy. IMPRESSION: Successful ultrasound and fluoroscopic-guided placement of a 47 cm long 5 Venezuelan dual-lumen Power PICC via the right basilic vein. The catheter tip lies at the right atrium/superior vena cava junction . PLAN: - PICC is ready for immediate use. - Recommend routine dressing changes and flushing with 10 cc normal saline after use. [facility]-[id number] Performing Organization Address City/[facility] P isiah Number [facility] [address] [place] [address] * Vancomycin level, trough (11/23/2019 11:37 PM CDT) Only the most recent of 2 results within the time period is included. Vancomycin, 13.0 10.0 - 20.0 ug/mL [place] trough Comment: [facility] Therapeutic Ranges: [facility] [place] Peak 30.0 - 40.0 ug/mL Trough 10.0 - 20.0 ug/mL Specimen Serum Performing Organization Address [facility] [place] [address] [address] [place], [place] [address] PATHOLOGY AND GENOMIC MEDICINE [place] [facility] [address] [place] [address] [facility] [place] * Airway (11/23/2019 2:03 PM CDT) Narrative Performed At Becca Mancilla NP 0 2:04 PM Airway Performed by: Becca Mancilla NP Authorized by: Nic Yun MD Location: OR Urgency: Elective Difficult Airway: No Anesthesiologist: Nic Yun MD Resident/SENIOR QUALITY ANALYST/AA: Becca Mancilla NP Performed by: resident/SENIOR QUALITY ANALYST/AA Preoxygenated with 100% O2: Yes Mask Ventilation: Easy mask Final Airway Type: Endotracheal airwa y Final Endotracheal Airway: ETT Cuffed: Yes Technique Used: Direct laryngoscopy Devices/Methods Used in Placement: In tubating stylet and cricoid pressure Insertion Site: Oral Blade Type: Khalil Laryngoscope Blade/Videolaryngoscope Bl christiano Size: 2 ETT Size (mm): 8.0 Cuff at minimum occlusion pressure: Yes Measured from: Lips ETT to Lips (cm): 24 Placement Verified by: CO2 detection an d direct visualization Laryngoscopic view: Grade IIb - view of arytenoids or posterior of glottis only Rapid Sequence Induction (RSI): No Modified RSI: No Number of Attempts at Approach: 1 Patient's bed due to pain. Atraumatic. * Aerobic culture (11/21/2019 9:42 AM CDT) Aerobic culture Enterococcus faecium [facility] isolate Recovered in Broth only: [facility] , beta lactamase negative HOSPITAL Enterococcus susceptible to high levels of Gentamicin. Susceptibility results indicate synergy with Penicillins and Vancomycin. This organism is Vancomycin Resistant. (A) Comment: Specimen Information Specimen Source: Bone Specimen Site: Sacrum: sacral bone from abscess Specimen Bone - Sacrum Antibiotic Method Susceptibility Organism Ampicillin ANA >8 mcg/mL: Resistant Enterococcus faecium Daptomycin ANA 2 mcg/mL: Susceptible Enterococcus faecium Erythromycin ANA >4 mcg/mL: Resistant Enterococcus faecium Gentamicin-Syn ANA <=500 mcg/mL: Susceptible Enterococcus faecium Linezolid ANA 4 mcg/mL: Resistant Enterococcus faecium Minocycline ANA 8 mcg/mL: Resistant Enterococcus faecium Norfloxacin ANA mcg/mL: Resistant Enterococcus faecium Vancomycin ANA >32 mcg/mL: Resistant Enterococcus faecium Performing Organization Address City/State/ZIP Code P isiah Number [facility] DEPARTMENT OF [address] [place] [address] PATHOLOGY AND GENOMIC MEDICINE [address] * Fungus culture (11/21/2019 9:42 AM CDT) Fungus culture Kalie glabrata CARLOS isolate Occasional [facility] The performance HOSPITAL characteristics of this assay on this isolate were validated by the Microbiology Laboratory at [facility]. This source has not been approved by the U.S. Food and Drug Administration. The results are not intended to be used as the sole means for clinical diagnosis or patient management. The Microbiology Laboratory is authorized under the clinical Laboratory Improvement Amendments of 1988 (CLIA-88) to perform high complexity testing. (A) Comment: Specimen Information Specimen Source: Bone Specimen Site: Sacrum: sacral bone from abscess Specimen Bone - Sacrum Antibiotic Method Susceptibility Organism Micafungin BP 0.016 mcg/mL: Susceptible Kalie glabrata Amphotericin B BP 1 mcg/mL: Susceptible Kalie glabrata Posiconazole BP 8 mcg/mL Kalie glabrata Itraconazole BP 2 mcg/mL: Resistant Kalie glabrata Fluconazole BP 128 mcg/mL: Resistant Kalie glabrata Performing Organization Address City/State/ZIP Code P isiah Number [facility] DEPARTMENT OF [address] [place] [address] PATHOLOGY AND GENOMIC MEDICINE [place] [facility] [address] [place] [address] HOSPITAL * Anaerobic culture (11/21/2019 9:42 AM CDT) Anaerobic No anaerobic organisms [place] culture isolate isolated. (A) [facility] Comment: HOSPITAL Specimen Information Specimen Source: Bone Specimen Site: Sacrum: sacral bone from abscess Anaerobic Providencia stuartii [place] culture isolate Recovered in Broth only: [facility] susceptibility to follow HOSPITAL (A) Specimen Bone - Sacrum Antibiotic Method Susceptibility Organism Ampicillin ANA >16 mcg/mL: Resistant Providencia stuartii Amoxicillin/Clavulanate ANA >16/8 mcg/mL: Resistant Providencia stuartii Amikacin AAN <=8 mcg/mL: Susceptible Providencia stuartii Aztreonam ANA <=2 mcg/mL: Susceptible Providencia stuartii Ceftazidime ANA <=2 mcg/mL: Susceptible Providencia stuartii Ciprofloxacin ANA >2 mcg/mL: Resistant Providencia stuartii Ceftriaxone ANA <=1 mcg/mL: Susceptible Providencia stuartii Cefazolin ANA >16 mcg/mL: Resistant Providencia stuartii Cefepime ANA <=1 mcg/mL: Susceptible Providencia stuartii Cefoxitin ANA <=4 mcg/mL: Susceptible Providencia stuartii Gentamicin ANA mcg/mL: Resistant Providencia stuartii Levofloxacin ANA >4 mcg/mL: Resistant Providencia stuartii Meropenem ANA <=0.5 mcg/mL: Susceptible Providencia stuartii Tobramycin ANA mcg/mL: Resistant Providencia stuartii Ampicillin/Sulbactam ANA 8/4 mcg/mL: Susceptible Providencia stuartii Trimethoprim/Sulfamethoxazole ANA <=0.5/9.5 mcg/mL: Susceptible Providencia stuartii Tetracycline ANA >8 mcg/mL: Resistant Providencia stuartii Piperacillin/Tazobactam ANA <=2/4 mcg/mL: Susceptible Providencia stuartii Ertapenem ANA <=0.25 mcg/mL: Susceptible Providencia stuartii Tigecycline ANA mcg/mL: Resistant Providencia stuartii Performing Organization Address City/[facility]/ZIP Code P isiah Number [facility] DEPARTMENT OF [address] [place] [id number] PATHOLOGY AND GENOMIC MEDICINE [place] [id number] HOSPITAL * Surgical pathology request (11/21/2019 9:11 AM CDT) [facility] DEPARTMENT OF PATHOLOGY AND GENOMIC MEDICINE Surgical See link below for PDF Lab [facility] pathology Report DEPARTMENT OF report PATHOLOGY AND GENOMIC MEDICINE Result status This is Final Report for [facility] [id number] DEPARTMENT OF PATHOLOGY AND GENOMIC MEDICINE Specimen Performing Organization Address City/[facility] P isiah Number [facility] DEPARTMENT [address] [address] [place], [place] [address] PATHOLOGY AND GENOMIC MEDICINE * Airway (11/21/2019 8:26 AM CDT) Narrative Performed At Chidi Saldaña MD 8:26 AM Airway Performed by: Chidi Saldaña MD Authorized by: Chidi Saldaña MD Location: OR Urgency: Elective Difficult Airway: No Anesthesiologist: Rupert Saldaña MD Performed by: anesthesiologist Preoxygenated with 100% O2: Yes Mask Ventilation: Not attempted Final Airway Type: Supraglottic airwa y Final LMA: Unique LMA Size: 5 Number of Attempts at Approach: 1 * CT Pelvis W Contrast (11/19/2019 10:24 PM CDT) Specimen Narrative Performed At EXAMINATION: CT PELVIS W CONTRAST [facility] CLINICAL HISTORY: r o sacral osteomye litis TECHNIQUE:Multiple axial images of the pelvis were obtained following intravenous administration of iodinated contrast. Sagittal and coronal computerized reformatted images were al so obtained. CT imaging was performed with iterative reconstruction techniques and/or automated exposure co ntrol to reduce radiation dose. COMPARISON: Sacrum-coccyx radiograph 11/18/2019 FINDINGS: Sacral decubitus ulceration predominant ly along the gluteal cleft superior margin with subcutaneous fat stranding gas extending from the level of the ischial tuberosities to the coccyx. No discrete organized fluid collection to suggest abscess formation. Suspected seton drain in the gluteal cl eft likely extending to likely an anal fistula at the 6 o'clock position (4:11 7-119). No soft tissue gas within the musculature although inflammatory kim es abuts the bilateral gluteus betsey medial slips of the coccyx. Pelvic girdle muscle bulk is relatively symmetric. Sciatic nerves are normal along their visualized course. Bilatera l fat-containing inguinal hernias. Urinary bladder is distended with wall thickening. Prostate is prominent measuring up to 6.1 cm. Mild stool burden within the left hemic olon compatible with constipation. Scattered colonic diverticulosis withou t diverticulitis. Prominent presacral fat stranding. No free intraperitoneal air or free fluid. Desiccation scattered about the pelvic vasculature. Prominent inguinal lymph n odes. Subcutaneous gas abuts the coccyx witho ut discrete erosions or periostitis to suggest osteomyelitis. MRI can better e valuate for early osteomyelitis. No acute fracture. Multilevel thoracolumbar dege nerative disc disease and facet osteoarthritis. Femoral heads are seated well within the acetab maximus with mild bilateral hip joint osteoarthritis. Prominent heterotopic o ssification about the acetabula, trochanters and iliac crests can be see n with diffuse idiopathic skeletal hyperostosis IMPRESSION: Sacral decubitus ulceration with adjace nt soft tissue gas extending to the coccyx. No discrete abscess formation. No CT evidence for acute osteomyelitis. Suspected anal fistula with seton drain in place. Distended urinary bladder with wall thi ckening may represent cystitis versus chronic urinary bladder outlet obstruct ion, correlate with urinalysis. Other findings as described above. [facility]-[id number] Procedure Note Hm Interface, Radiology Results Incoming - 11/19/2019 11:02 PM CDT EXAMINATION: CT PELVIS W CONTRAST CLINICAL HISTORY: r o sacral osteomyelitis TECHNIQUE:Multiple axial images of the pelvis were obtained following intravenous administration of iodinated contrast. Sagittal and coronal computerized reformatted images were also obtained. CT imaging was performed with iterative reconstruction techniques and/or automated exposure control to reduce radiation dose. COMPARISON: Sacrum-coccyx radiograph 11/18/2019 FINDINGS: Sacral decubitus ulceration predominantly along the gluteal cleft superior margin with subcutaneous fat stranding gas extending from the level of the ischial tuberosities to the coccyx. No discrete organized fluid collection to suggest abscess formation. Suspected seton drain in the gluteal cleft likely extending to likely an anal fistula at the 6 o'clock position (4:117-119). No soft tissue gas within the musculature although inflammatory changes abuts the bilateral gluteus betsey medial slips of the coccyx. Pelvic girdle muscle bulk is relatively symmetric. Sciatic nerves are normal along their visualized course. Bilateral fat-containing inguinal hernias. Urinary bladder is distended with wall thickening. Prostate is prominent measuring up to 6.1 cm. Mild stool burden within the left hemicolon compatible with constipation. Scattered colonic diverticulosis without diverticulitis. Prominent presacral fat stranding. No free intraperitoneal air or free fluid. Desiccation scattered about the pelvic vasculature. Prominent inguinal lymph nodes. Subcutaneous gas abuts the coccyx without discrete erosions or periostitis to suggest osteomyelitis. MRI can better evaluate for early osteomyelitis. No acute fracture. Multilevel thoracolumbar degenerative disc disease and facet osteoarthritis. Femoral heads are seated well within the acetabula with mild bilateral hip joint osteoarthritis. Prominent heterotopic ossification about the acetabula, trochanters and iliac crests can be seen with diffuse idiopathic skeletal hyperostosis IMPRESSION: Sacral decubitus ulceration with adjacent soft tissue gas extending to the coccyx. No discrete abscess formation. No CT evidence for acute osteomyelitis. Suspected anal fistula with seton drain in place. Distended urinary bladder with wall thickening may represent cystitis versus chronic urinary bladder outlet obstruction, correlate with urinalysis. Other findings as described above. [facility]-[id number] Performing Organization Address City/State/ZIP Code P isiah Number [facility] [address] [place] [address] * Transthoracic Echocardiogram Complete, (w Contrast, Strain and 3D if needed) (11/19/2019 9:01 AM CDT) Velocity Ratio 0.33 m/s [facility] (V1/V2) IVS,d 1.23 cm [facility] Ao root annulus 3.47 cm [facility] EF 55.22 % [facility] LVPWD,d 1.19 cm [facility] AoV Mean PG 12.05 mmHg [facility] AV LVOT peak 3.03 mmHg [facility] gradient MV valve area p 5.91 cm2 [facility] 1/2 method E/A ratio 0.70 [facility] E wave 135.10 msec [facility] decelartion time LVOT Diam,S 2.36 cm [facility] LVOT area 4.37 cm2 [facility] LVOT Vmax 0.87 m/s [facility] LVOT VTI 0.17 m [facility] AoV Peak PG 27.45 mmHg [facility] MV Peak E Catalino 0.76 m/s [facility] MV stenosis 37.22 ms [facility] pressure 1/2 time MV Peak A [place]ino 1.08 m/s [facility] LV Vol,s A2C 38.12 mL [facility] LV Vol,d A2C 76.02 mL [facility] AoV Area, Vmax 1.72 cm2 [facility] AoV Area, VTI 1.88 cm2 [facility] AoV Vmax 2.62 m/s [facility] LV,d 4.57 cm [facility] LV,s 3.26 cm [facility] LV Vol,d A4C 57.69 ml [facility] LV Vol,s A4C 24.32 ml [facility] RVSP (TR) 25.74 mmHg [facility] TR Vpeak 2.48 mm/s [facility] MV E A ratio 0.70 [facility] RA pressure 5.00 mmHg [facility] TR pk grad 21.36 mmHg [facility] RVSP 25.74 mmHg [facility] LV SYS VOL 42.99 ml [facility] LV AVILA VOL 96.01 ml [facility] LA diam s 2.80 cm [facility] LV SV Teich 2D 53.02 ml [facility] LVOT SI 32.23 ml/m2 [facility] AoV Cusp sep 1.18 [facility] Aortic Root 3.50 cm [facility] AoV Vmn 1.70 [facility] IVS s 2D 1.73 [facility] LA Ao Ratio 0.80 [facility] Mmode D E excurs 1.40 [facility] E f slope 0.04 [facility] E prime lat 0.10 [facility] E louann sept 0.08 [facility] PV acc T slope 9.20 [facility] PV AT 93.43 msec [facility] SESAY BP EF 58.00 % [facility] AoV VTI 0.40 m [facility] LV EF,A2C 49.85 % [facility] LV EF,A4C 57.84 % [facility] LV EF,BP 57.58 % [facility] [place],d A2C 7.38 cm [facility] [place],d A4C 8.44 cm [facility] [place],s A2C 7.20 cm [facility] [place],s A4C 7.40 cm [facility] LV SV,A2C 37.89 % [facility] LV SV,A4C 33.37 % [facility] LV Vol,d BP 70.53 ml [facility] LV Vol,s BP 29.92 nl [facility] LVOT Vmn 0.63 [facility] Pt Size 185.42 [facility] Pt Wt 108.86 [facility] LVOT mean grad 1.79 mmHg [facility] LVPW s PLAX 1.58 cm [facility] MV Decel slope 5.65 m/s2 [facility] Specimen Narrative Performed At [facility] The left ventricular chamber size is normal. Left ventricular systolic function is borderline reduced. EF 50% There is mild left ventricular concentric hypertrophy. Abnormal (parad oxical) motion consistent with RV pacemaker. Apical hypokinesis Normal right ventricular size and gl obal function. A pacer/ICD is visualized in the right ventricle. Echo density is present on the pacing wire likely fibrinous material The mitral valve appears thickened. Mild aortic valve stenosis . Unable to assess diastolic filling. Mild tricuspid valve regurgitation. No evidence of tricuspid valve stenosis. Normal pulmonary artery systo lic pressure. RA pressure is normal. No evidence of pulmonary hypert ension present. RVSP is 25 mmHg. Performing Organization Address City/State/ZIP Code P isiah Number [facility] [address] [place] [address], * Pv physiologic arterial lower extremity complete w melina (11/18/2019 3:25 PM CDT) Left arm BP 116 mmHg [facility] Right arm BP 116 mmHg [facility] Left posterior 255 mmHg [facility] tibial Right posterior 255 mmHg [facility] tibial Left toe 41 mmHg [facility] pressure Right toe 31 mmHg [facility] pressure Left Dorsal 255 mmHg [facility] Pedis BP Right Dorsal 255 mmHg [facility] Pedis Left TBI 0.35 [facility] Right TBI 0.27 [facility] Specimen Narrative Performed At [facility] Bilateral lower extremity physiologic s tudy with segmental waveforms shows 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 There is also evidence of femoral and tibial artery d isease on the left. Ankle-brachial indices cannot be calcul ated due to calcified noncompressible arteries. (Clinical c orrelation) Toe brachial indices suggest moderate t o severe distal perfusion deficit. Performing Organization Address [facility]/ZIP Code P isiah Number [facility] [address] [place] [address], * XR Sacrum And Coccyx (11/18/2019 1:38 PM CDT) Specimen Narrative Performed At Study:XR SACRUM AND COCCYX [facility] History:Infection and inflammatory reac tion due to other nervous system device implant or graft COMPARISON:None. IMPRESSION: 3 views of the sacrum. Bilateral SI sun nts appear patent. No acute fracture or erosions. The sacrum and coccyx are in anatomic alignment. No acute fracture. Pelvic phleboliths present. [id number] Procedure Note Hm Interface, Radiology Results Incoming - 11/18/2019 1:52 PM CDT Study:XR SACRUM AND COCCYX History:Infection and inflammatory reaction due to other nervous system device implant or graft COMPARISON:None. IMPRESSION: 3 views of the sacrum. Bilateral SI join ts appear patent. No acute fracture or erosions. The sacrum and coccyx are in anatomic alignment. No acute fracture. Pelvic phleboliths present. [id number] Performing Organization Address City/[facility] Code P isiah Number [facility] [address] [place] [address] * XR Foot 3+ Vw Right (11/18/2019 1:37 PM CDT) Specimen Narrative Performed At EXAMINATION: XR FOOT 3 VW RIGHT [facility] CLINICAL HISTORY: Osteomyelitis suspe cted foot swelling diabetic COMPARISON: None available FINDINGS: 1. Approximately age and gender appropr iate mineralization of the osseous structures. 2. Adequate nonweightbearing alignment of the right foot without acute fracture. Status post fifth metatarsal amputation . Suspected soft tissue defect along the distal soft tissues of the great toe wi th focal dictation of the distal phalanx concerning for acute osteomyelitis. 3. 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 Enthesophyte formation at the Achilles insertion with tendinosis and a moderate sized plantar calcaneal spur 4. Diffuse diabetic type vascular calci fications. IMPRESSION: Findings concerning for acute osteomyel itis of the distal phalanx of the great toe, clinical correlation and advanced imaging may be indicated. [facility]-[id number] Procedure Note Interface, Radiology Results Incoming - 11/18/2019 2:07 PM CDT EXAMINATION: XR FOOT 3 VW RIGHT CLINICAL HISTORY: Osteomyelitis suspected foot swelling diabetic COMPARISON: None available FINDINGS: 1. Approximately age and gender appropri ate mineralization of the osseous structures. 2. Adequate nonweightbearing alignment o f the right foot without acute fracture. Status post fifth metatarsal amputation. Suspected soft tissue defect along the distal soft tissues of the great toe with focal dictation of the distal phalanx concerning for acute osteomyelitis. 3. Moderate hallux metatarsophalangeal j oint osteoarthritis. Mild midfoot osteoarthritis. Enthesophyte formation at the Achilles insertion with tendinosis and a moderate sized plantar calcaneal spur 4. Diffuse diabetic type vascular calcif ications. IMPRESSION: Findings concerning for acute osteomyelitis of the distal phalanx of the great toe, clinical correlation and advanced imaging may be indicated. [facility]-[id number] Performing Organization Address City/State/ZIP Code P isiah Number [facility] [address] [place] [address] * Lactic acid level, SEPSIS - Now and repeat 2x every 3 hours (11/17/2019 8:12 PM CDT) Only the most recent of 3 results within the time period is included. Lactic acid 2.3 (H) 0.5 - 2.2 mmol/L [facility] Specimen Blood Performing Organization Address City/State/ZIP Code [place] [address] [place], [place] [address] PATHOLOGY AND GENOMIC MEDICINE [facility] [address] [place] [address] [facility] [place] * Troponin (11/17/2019 8:12 PM CDT) Only the most recent of 3 results within the time period is included. Troponin 0.006 0.000 - 0.040 ng/mL [place] Comment: NICOLE GARCIA In patients suspected of [facility] [place] having a myocardial infarction, along with all other appropriate clinical measures and actions including ECG and other diagnostics as appropriate, measure Ultra TnI at 0 hrs and at 3 hrs. Myocardial infarction VERY LIKELY The 0 hr TnI level is > 0.10 ng/mL Myocardial infarction LIKELY The 0 hr TnI level is > 0.04 ng/mL and 3 hr level is increased or decreased by at least 0.020 ng/mL Myocardial infarction VERY UNLIKELY Both the 0 hr and 3 hr TnI levels <= 0.04 ng/mL(within normal limits) OR 0 hr is > 0.04 ng/mL and 3 hr is increased OR decreased by less than 0.020 ng/mL Specimen Blood Performing Organization Address City/State/ZIP Code [place] [address] [place], [place] [address] PATHOLOGY AND GENOMIC MEDICINE [place] NICOLE GARCIA [address] [place] [address] [facility] [place] * ECG ED Preliminary Interpretation - Not an Order (11/17/2019 2:43 PM CDT) Narrative Performed At Ben Goel Jr., MD 2019 3:32 PM ECG ED Preliminary Interpretation - Not an Order Performed by: Ben Goel Jr., MD Authorized by: Ben Goel Jr., MD ECG reviewed by ED Physician in the abs ence of a parts counter clerk: yes Interpretation: Interpretation: abnormal Rate: ECG rate: 100 ECG rate assessment: normal Rhythm: Rhythm: sinus rhythm and paced Pacing: Type of pacing: Ventricular QRS: QRS axis: Normal QRS intervals: Normal * Venous blood gas (11/17/2019 2:39 PM CDT) pH, venous 7.36 7.32 - 7.42 [facility] pCO2, venous 53 (H) 45 - 51 mmHg [facility] pO2, venous 19 (L) 25 - 40 mmHg [facility] Base excess, 4 (H) -2 - 2 meq/L [facility] O2 saturation, 27 (L) 40 - 70 % [facility] Bicarbonate, 28.1 (H) 21.0 - 28.0 mmol/L [facility] FiO2, inspired Unknown % [place] O2% [facility] Specimen Blood Performing Organization Address City/[facility] P isiah Number [address] [place] [address] PATHOLOGY AND GENOMIC MEDICINE [address] * Blood culture, aerobic & anaerobic (11/17/2019 2:30 PM CDT) Only the most recent of 2 results within the time period is included. Pathologist [facility] Blood culture No growth after 5 days of [place] isolate incubation. [facility] Comment: HOSPITAL Specimen Information Specimen Source: Blood Specimen Site: Unspecified Specimen Blood Performing Organization Address City/[facility] P isiah Number [facility] DEPARTMENT OF [address] [place] [address] PATHOLOGY AND GENOMIC MEDICINE [address] * B natriuretic peptide (11/17/2019 2:28 PM CDT) Pathologist [facility] BNP 74 0 - 100 pg/mL [facility] Specimen Blood Performing Organization Address City/[facility] P isiah Number [address] [place] [address] PATHOLOGY AND GENOMIC MEDICINE [address] after 02/17/2019 Additional Health Concerns Last Indicated Resolved Time Infection Onset Date 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
--- OUTSIDE RECORDS SUMMARY | 2020-02-19 10:17 | XMS REPORT | Continuity of Care Document ---
Author Author [facility] t Organization [facility] Address [address] [place] [address] Phone Unavailable Care Team Providers Care Janitorial Account Manager Name Role Phone MD Robin MAHONEY MD PCP Mikey MCGINNIS Attphys Unavailable Bety EDMONDS, Kamryn Attphys Manasa EDMONDS, Alpesh Contreras Attphys Gold Bird MD, Dean Cotton Attphys [phone] Provider, Unknown Attphys Unavailable Gilberto EDMONDS, Emily Attphys Eron EDMONDS, Cate Savage Attphys [phone] Jama EDMONDS, Chidi Lucero Attphys [phone] Osmel New CRNA Attphys Piotr EDMONDS, Camilo Murillo Attphys [phone] Meredith EDMONDS, Reza Hong Attphys Robin MAHONEY Attphys Unavailable GRACE HERRERA Attphys Unavailable VÍCTOR, S AMBICA Attphys Unavailable Mikey MCGINNIS Admphys Unavailable BETY, KAMRYN Admphys Unavailable CARLA ELAINE Admphys Unavailable DENZEL, S HSERIDAN Admphys Unavailable Payers Payer Name Policy Type Policy Number Effective Date Expiration Date Robin L[address] MEDICAREHUMANA MEDICARE PPO/PFFS/ERS [id number] 2019 00:00:00 Carlos Abrams [employer] Medicare Replacement [id number] 2012 00:00:00 [facility] Problems Condition Name Condition Details Condition Category Status Onset Date Resolution Date Last Treatment Date Treating Clinician Comments Source Moderate protein malnutrition Moderate protein malnutrition Disease Active 2019-12-28 00:00:00 Carlos Abrams Sacral wound Sacral wound Disease Active 2019-12-16 00:00:00 Carlos Abrams Hematuria Hematuria Disease Active 2019-12-06 00:00:00 Carlos Abrams PAD (peripheral artery disease) PAD (peripheral artery disease) Dis ease Active 2019-12-06 00:00:00 Carlos Abrams Weakness Weakness Disease Active 2019-11-17 00:00:00 Carlos Abrams Recurrent falls Falls frequently Problem Active [facility] Low back pain Low back pain Problem Active [facility] Obesity Obesity Problem Active [facility] Dehydration Dehydration Problem Active [facility] Diarrhea Diarrhea Problem Active [facility] Diabetic foot infection Diabetic foot infection Problem Active [facility] Cellulitis in diabetic foot Problem Active [facility] Urinary tract infection Problem Active [facility] Cellulitis of scrotum Problem Active [facility] Atrial fibrillation Atrial fibrillation Disease Active [facility] Diabetes mellitus Diabetes mellitus Disease Active [facility] Hypertension Hypertension Disease Active [facility] History of congestive heart failure History of congestive heart failure Disease Active [facility] Pressure ulcer of sacral region, unspecified stage Pre ssure ulcer of sacral region, unspecified stage Disease Active [facility] Pressure ulcer of right heel Pressure ulcer of right heel Disease Active [facility] Anemia, unspecified Anemia, unspecified Disease Active [facility] History of hyperlipidemia History of hyperlipidemia Disease Active [facility] History of CVA (cerebrovascular accident) History of C VA (cerebrovascular accident) Disease Active [facility] ist Bedbound Bedbound Disease Active [facility] Allergies, Adverse Reactions, Alerts Allergy Name Allergy Type Status Severity Reaction(s) Onset Date Inacti ve Date Treating Clinician Comments Source Codeine Propensity to adverse reactions to drug Active Hives 2019-11-17 00:00:00 Carlos gilman Penicillins Propensity to adverse reactions to drug Active Hives 2019-11-17 00:00:00 Carlos gimlan Codeine Allergy to substance Active Moderate rash 2019-09-18 00:00:00 [facility] Penicillins DA Active SV 2018-10-06 00:00:00 [facility] penicillin Allergy to substance Active Mild Rash 2018-09-08 00:00:00 [facility] Penicillins DA Active SV 2018-05-19 00:00:00 [facility] Penicillins DA Active SV 2017-02-20 00:00:00 [facility] Social History Social Habit Start Date Stop Date Quantity Comments Source Sex Assigned At Amna wilder Abrams Tobacco use and exposure 2019-12-16 00:00:00 2019-12-16 00:00:00 Hugo parr used Carlos Abrams Alcohol intake 2019-12-16 00:00:00 2019-12-16 00:00:00 Ex-drinker (fi nding) Carlos Abrams Smoking Status Start Date Stop Date Source Never smoker Carlos gilman Medications Ordered Medication Name Filled Medication Name Start Date Stop Da te Current Medication? Ordering Clinician Indication Dosage Frequency Signature (SIG) Comments Components Source HYDROcodone-acetaminophen (NORCO) 10-325 mg per tablet 2020-02-05 08:31:15 2020-02-05 00:00:00 No acute pain 1{tbl} Q4H Take 1 tablet by mouth every 4 (four) hours as needed for moderate pain .acute pain. Given 30-45 prior to wound care Carlos Abrams insulin GLARGINE (LANTUS) 100 unit/mL injection (vial) 2020-02-05 00:00:00 2020-03-06 23:59:00 Yes 5U QD Injec t 5 Units under the skin daily before breakfast for 30 days. Carlos Abrams HYDROcodone-acetaminophen (NORCO) 10-325 mg per tablet 2020-02-05 00:00:00 2020-02-12 23:59:00 No acute pain 1{tbl} Q6H Take 1 tablet by mouth every 6 (six) hours as needed for moderate pain for up to 7 days .acute pain. Given 30- 45 prior to wound care Max Daily Amount: 4 tablets Carlos Abrams ALPRAZolam (XANAX) 1 MG tablet 2020-02-04 16:06:40 2020-02-04 00 :00:00 No 1mg Q8H Take 1 mg by mouth every 8 (eight) hours as needed for anxiety. Carlos Abrams fluticasone propion-salmeteroL 232-14 mc g/actuation aerosol powdr breath activated 2020-02-04 16:06:40 2020-02-04 00:00:00 No 1{puff} Q12H Inhale 1 puff every 12 (twelve) hours. For SOB Ho scott Abrams insulin lispro (HUMALOG, ADMELOG) 100 unit/mL injection 2020-02-04 16::2020-02-04 00:00:00 No 0U Q.25D Injec t 0-12 Units under the skin 4 (four) times a day before meals and nightly. Radha Abrams magnesium oxide (MAG-OX) 400 mg (241.3 mg magnesium) tablet 2020-02-04 16:06:40 2020-02-04 00:00:00 No 400mg QD Take 400 mg by m outh daily. Carlos Abrams HYDROcodone-acetaminophen (NORCO) 5-325 mg per tablet 2020-02-04 16:06:40 2020-02-04 00:00:00 No acute pain 1{tbl} Q6H Take 1 tablet by mouth every 6 (six) hours as needed for moderate pain .acute pain. Carlos Abrams nystatin (MYCOSTATIN) 100,000 unit/gram cream 20 17-02-06 16:06:40 2020-02-04 00:00:00 No Q.5D Apply topically 2 (two) times a day. Carlos Abrams nystatin (MYCOSTATIN) 100,000 unit/gram powder 2 16:06:2020-02-04 00:00:00 No Q.5D Apply topicall y 2 (two) times a day. Apply to jose maria area/ scrotal area Carlos Abrams cefepime (MAXIPIME) 1 gram in 0.9% sodium chloride 50mL Min i-Bag Plus 2020-02-04 16:06:2020-02-04 00:00:00 No Q8H Infuse into a venous catheter every 8 (eight) hours. Carlos Abrams sodium chloride 0.9% parenteral solution 100 mL with DAPTOmycin (PF) 500 mg recon soln 6 mg/kg 2020-02-04 16:06:40 2020-02-04 00:00:00 No 1000mg Q24H Infuse 1,000 mg into a venous catheter daily. DAPTOmycin 1,000 mg in sodium chloride 0.9 % IVPB Carlos Abrams fluticasone furoate-vilanteroL (Breo Ell ipta) 100-25 mcg/dose blister with device powder for inhalation 2020-02-04 16::2020-02-04 00:00:00 No QD Inhale once daily. Carlos naqvi dextrose 10 % infusion 2020-02-04 16::2020-02-04 00:00:00 N o 40mL/h Infuse 40 mL/hr into a venous catheter c ontinuously as needed (for bedside glucose LESS than 70 mg/dL). Carlos velez dextrose 50% syringe 2020-02-04 16::2020-02-04 00:00:00 No 25g Infuse 25 g into a venous catheter every 20 (twenty) minutes as needed (Low blood sugar). If blood glucose is LESS than 40 mg/dL Carlos Abrams dextrose 50% syringe 2020-02-04 16::2020-02-04 00:00:00 No 12.5g Infuse 12.5 g into a venous catheter every 20 (twenty) minutes as needed (low blood sugar). If blood sugar is between 41-50 mg/dL Carlos Abrams furosemide (LASIX) 10 mg/mL injection 2020-02-04 16: :40 2020-02-04 00:00:00 No 20mg Infuse 20 mg in to a venous catheter as needed (for blood transfusion). Inject each 20 mg of furosemide slowly IV over 1 to 2 minutes post bt 1st and 2nd unti Carlos Abrams glucagon, human recombinant, (glucagon) 1 mg injection 2020-02-04 16:06:40 2020-02-04 00:00:00 No 1mg Injec t 1 mg into the shoulder, thigh, or buttocks every 15 (fifteen) minutes as needed for low blood sugar (if patient NPO unable to swallow with NO IV acces). Carlos Abrams hydrALAZINE (APRESOLINE) 20 mg/mL injection 2019 16:06:40 2020-02-04 00:00:00 No 10mg Q4H Infuse 10 mg i nto a venous catheter every 4 (four) hours as needed for high blood pressure. Administer if Systolic BP > 170 mmHg Carlos Abrams naloxone (NARCAN) 0.4 mg/mL injection 2020-02-04 16:06 :40 2020-02-04 00:00:00 No .2mg Infuse 0.2 mg i nto a venous catheter every 2 (two) minutes as needed for respiratory depression (Unarousable and/or patient RR <9). Carlos Abrams ascorbic acid, vitamin C, (VITAMIN C) 500 MG tablet 2019-03 16:06:37 Yes 500mg Q.5D Take 500 mg by mouth 2 (two) times a day . Carlos Abrams atorvastatin (LIPITOR) 40 mg tablet 2020-02-04 16:06:37 Yes 40mg QD Take 40 mg by mouth every evening. Carlos snow citalopram (CeleXA) 40 MG tablet 2020-02-04 16:06:37 Yes 40mg QD Take 40 mg by mouth daily. Carlos Abrams ezetimibe (ZETIA) 10 mg tablet 2020-02-04 16:06:37 Yes 10mg QD Take 10 mg by mouth daily. Carlos Abrams ferrous sulfate 325 (65 FE) MG tablet 2020-02-04 16:06:37 Yes 325mg Q.5D Take 325 mg by mouth 2 (two) times a day. Carlos Abrams tamsulosin (FLOMAX) 0.4 mg capsule 2020-02-04 16:06:37 Yes .4mg QD Take 0.4 mg by mouth daily with dinner. Shireen Abrams gabapentin (NEURONTIN) 400 mg capsule 2020-02-04 16:06:37 Yes 400mg Q.[id number] Take 400 mg by mouth 3 (three) times a day. Carlos Abrams glimepiride (AMARYL) 2 MG tablet 2020-02-04 16:06:37 Yes 2mg Q.5D Take 2 mg by mouth 2 (two) times a day. Christie Abrams levothyroxine (SYNTHROID) 137 mcg tablet 2020-02-04 16:06:37 Yes 137ug QD Take 137 mcg by mouth daily. Amna wilder [facility] lisinopriL (PRINIVIL) 2.5 mg tablet 2020-02-04 16:06:37 Yes 10mg Q.5D Take 10 mg by mouth 2 (two) times a day. Carlos Abrams multivitamin (THERAGRAN) tablet 2020-02-04 16:06:37 Yes 1{tbl} QD Take 1 tablet by mouth daily. Carlos Abrams sodium chloride 1 gram tablet 2020-02-04 16:06:37 Yes 1g Q.5D Take 1 g by mouth 2 (two) times a day. For hyponatremia Carlos Abrams lidocaine (XYLOCAINE) 2 % jelly 2020-02-04 16:06:37 Yes 1{application} Apply 1 application topically as needed for mild pain. Wound vac changes Carlos Abrams midodrine (PROAMATINE) 2.5 MG tablet 2020-02-04 00:00: 00 2020-03-05 23:59:00 Yes 2.5mg Q.[id number] Take 1 tablet (2.5 mg total) by mouth 3 (three) times a day for 30 days. Carlos Abrams DAPTOmycin, PF, (Cubicin RF) 500 mg injection 20 17-01-30 12:46:06 2019-12-16 00:00:00 No 1000mg Q24H Infuse 1,000 mg into a venous c atheter daily. Carlos Abrams insulin GLARGINE (LANTUS) 100 unit/mL injection (vial) 2020-01-28 00:00:00 2020-02-27 23:59:00 Yes 5U QD Injec t 5 Units under the skin daily before breakfast for 30 days. Carlos Abrams insulin lispro (ADMELOG) 100 unit/mL injection 2020-01-27 00:00: 00 Yes 0U Q.25D Inject 0-12 Units under the skin 4 (four) times a day before meals and nightly. Carlos Abrams white petrolatum-mineral oil (DERMACERIN,EUCERIN) cream topi miguel cream 2020-01-27 00:00:00 Yes Apply topically as needed (dry skin). Carlos Abrams clopidogreL (PLAVIX) 75 mg tablet 2020-01-27 00:00:00 2019 23:59:00 Yes 75mg QD Take 1 tablet (75 mg total) by mouth saman ly for 30 days. Carlos Abrams metoprolol succinate XL (TOPROL-XL) 25 mg 24 hr tablet 2020-01-27 00:00:00 2020-02-26 23:59:00 Yes 25mg QD Take 1 tablet (25 mg total) by mouth daily for 30 days. Carlos Abrams acetaminophen (TYLENOL) 325 MG tablet 2020-01-27 00:00 :00 2020-02-26 23:59:00 Yes 650mg Q6H Take 2 tablets (650 mg total) by mouth every 6 (six) hours as needed for fever (pain 1-4) for up to 30 days. Carlos Abrams nystatin (MYCOSTATIN) 100,000 unit/gram powder 2 00:00:00 2020-02-26 23:59:00 Yes Q.5D Apply topically 2 (two) times a day for 30 days. Carlos Abrams bacitracin 500 unit/gram ointment 2020-01-27 00:00:00 2019 23:59:00 Yes Q.5D Apply topically 2 (two) times a day for 30 days. Carlos Abrams doxycycline (VIBRAMYCIN) 100 MG capsule 00:00:00 2020-02-26 23:59:00 Yes 100mg Q.5D Take 1 capsule (100 mg total) by mouth 2 (two) times a day with meals for 30 days. Carlos snow simethicone (MYLICON) 80 MG chewable tablet 2019 00:00:00 2020-02-26 23:59:00 Yes 80mg Q6H Chew 1 tablet (80 mg total) every 6 (six) hours as needed for flatulence for up to 30 days. Carlos Abrams ALPRAZolam (XANAX) 0.5 MG tablet 2020-01-27 00:00:00 2020-01 23:59:00 No .5mg Q.5D Take 1 tablet (0.5 m g total) by mouth 2 (two) times a day for 7 days. Carlos Abrams clopidogreL (PLAVIX) 75 mg tablet 2019-12-16 00:00:00 2019 00:00:00 No 75mg QD Take 1 tablet (75 mg total) by mouth saman ly for 30 days. Carlos Abrams metoprolol succinate XL (TOPROL-XL) 25 mg 24 hr tablet 2019-12-16 00:00:00 2020-01-27 00:00:00 No 25mg QD Take 1 tablet (25 mg total) by mouth daily for 30 days. Carlos Abrams aspirin (ECOTRIN) 81 MG enteric coated tablet 20 19-12-15 18:39:45 2019-12-15 00:00:00 No 81mg QD Take 81 mg by mouth daily. Carlos Abrams enoxaparin (LOVENOX) 30 mg/0.3 mL syringe 12-14 18:39:45 2019-12-15 00:00:00 No 30mg QD Inject 30 mg under the skin saman ly. Carlos Abrams ondansetron (ZOFRAN) 8 MG tablet 2019-12-15 18:39:45 2019-11 00:00:00 No 8mg Q6H Take 8 mg by mouth every 6 (six) hours. Carlos Abrams zinc sulfate (ZINCATE) 220 (50) mg capsule 12-14 18:39:45 2019-12-15 00:00:00 No 220mg QD Take 220 mg by mouth daily. Carlos Abrams apixaban (ELIQUIS) 2.5 mg tablet 2019-12-15 00:00:00 Yes 2.5mg Q.5D Take 1 tablet (2.5 mg total) by mouth 2 (two) times a day. Carlos Abrams acetaminophen (TYLENOL) 325 MG tablet 2019-12-15 00:00 :00 2020-02-04 00:00:00 No 650mg Q6H Take 2 tablets (650 mg total) by mouth every 6 (six) hours as needed for mild pain or fever for up to 30 days. Carlos Abrams lactulose 20 gram/30 mL solution 2019-12-15 00:00:00 2020-01 00:00:00 No 20g Q.[id number] Take 30 mL (20 g total) by mouth 3 (three) times a day for 30 days. Carlos Abrams cefepime (MAXIPIME) 1 gram in 50 mL Mini-Bag Plus 2019-12-15 00:00:00 2019-12-15 00:00:00 No 1g Q8H Infus e 1 g into a venous catheter every 8 (eight) hours for 20 days. Carlos Metho dist ciprofloxacin (CIPRO) 500 MG tablet 2019-11-09 00:00:0 0 2019-12-15 00:00:00 No 500mg Q12H Take 500 mg by mouth every 12 (twelve) hours. Pt was taking for UTI Start date 11/08 Carlos [facility] Ondansetron Hcl (Zofran*) 4 Mg TABLET Ondansetron Hcl (Zofra n*) 4 Mg TABLET 2018-09-08 18:02:00 2018-09-08 00:00:00 No 4 Every 6 Hours as needed for Nausea [facility] Acetaminophen/Hydrocodone Bitart ([place] 10MG-325MG*) 1 Ea TAB Acetaminophen/Hydrocodone Bitart ([place] 10MG-325MG*) 1 Ea TAB Ye s 1 Three Times A Day as needed for Pain [facility] Alprazolam Alprazolam Yes 1 Three Time s A Day as needed for Anxiety [facility] Amlodipine Besylate Amlodipine Besylate Yes 5 Twice A Day [facility] Aspirin (Aspir-Low) 81 Mg TABLET. Aspirin (Aspir-Low) 81 Mg TABLET. Yes 1 Daily [facility] Atorvastatin Calcium Atorvastatin Calcium Yes 40 Bedtime [facility] Atorvastatin Calcium (Lipitor) 20 Mg TABLET Atorvastat in Calcium (Lipitor) 20 Mg TABLET Yes 40 Bedtime [facility] Carvedilol Carvedilol Yes 12.5 Twice A Day [facility] Citalopram Hydrobromide (Citalopram Hbr) 20 Mg TABLET Citalopram Hydrobromide (Citalopram Hbr) 20 Mg TABLET Yes 20 Daily [facility] Diphenhydramine Hcl (Benadryl) 25 Mg CAPSULE Diphenhyd ramine Hcl (Benadryl) 25 Mg CAPSULE Yes 25 Every 6 Hours as needed for Itching [facility] Ezetimibe (Zetia) 10 Mg TABLET Ezetimibe (Zetia) 10 Mg TABLET Yes 10 Bedtime [facility] Fluticasone Propionate (Flonase) 16 Gm SPRAY.SUSP Flut icasone Propionate (Flonase) 16 Gm SPRAY.SUSP Yes 16 as needed f or Allergy [facility] Furosemide Furosemide Yes 40 Daily [facility] Gabapentin Gabapentin Yes 800 Three Times A Day [facility] Glimepiride Glimepiride Yes 1 Daily [facility] Humalog Sliding Humalog Sliding Yes [facility] Hydrocodone Bit/Acetaminophen ([place] 5-325 Tablet) 1 E ach TABLET Hydrocodone Bit/Acetaminophen ([place] 5-325 Tablet) 1 Each TABLET Yes 1 Every 6 Hours as needed for Mild Pain (1-3) Or Fever>100.8 [facility] Insulin Glargine (Lantus 3ML Pen) 100 Units/1 Ml INJ I nsulin Glargine (Lantus 3ML Pen) 100 Units/1 Ml INJ Yes 35 Before Dahiana akfast [facility] Insulin Glargine (Lantus 3ML Pen) 100 Units/1 Ml INJ I nsulin Glargine (Lantus 3ML Pen) 100 Units/1 Ml INJ Yes 65 Before Sup per [facility] Levothyroxine Sodium (Synthroid) 125 Mcg TAB Levothyro xine Sodium (Synthroid) 125 Mcg TAB Yes 125 Daily@0600 [facility] Magnesium Oxide Magnesium Oxide Yes 400 Daily [facility] Metformin Metformin Yes 1000 Twice A Day [facility] Multivitamin (Multi-Vitamin Daily) 1 Each TABLET Multi vitamin (Multi-Vitamin Daily) 1 Each TABLET Yes 1 Daily [facility] Ondansetron Hcl (Zofran*) 4 Mg TABLET Ondansetron Hcl (Zofran*) 4 M g TABLET Yes 4 Every 6 Hours as needed for Nausea [facility] Quinapril Hcl Quinapril Hcl Yes 40 Daily [facility] Salmeterol Xinafoate/Fluticasone (Advair 500/50*) 1 Ea AERP Salmeterol Xinafoate/Fluticasone (Advair 500/50*) 1 Ea AERP Yes 1 As Needed [facility] Spironolactone Spironolactone Yes 25 Daily [facility] Tramadol Hcl (Ultram 50MG*) 50 Mg TAB Tramadol Hcl (Ultram 50MG*) 5 0 Mg TAB Yes 50 Every 6 Hours as needed for Pain [facility] Vit B 12 Vit B 12 Yes 1000 Daily [facility] Vit D 2000 Vit D 2000 Yes [facility] Zinc Sulfate Zinc Sulfate Yes 220 Daily [facility] Zolpidem Tartrate (Ambien) 5 Mg TABLET Zolpidem Tartrate (Ambien ) 5 Mg TABLET Yes 10 Bedtime [facility] Zolpidem Tartrate (Ambien) 10 Mg TABLET Zolpidem Tartrate (A mbien) 10 Mg TABLET Yes 10 Bedtime as needed for Insomnia [facility] Gabapentin Gabapentin 2018-10-27 00:00:00 No 300 Bed time [facility] Aspirin Aspirin 2018-09-05 00:00:00 No 81 Daily [facility] Carvedilol Carvedilol 2018-09-05 00:00:00 No 25 Twi ce A Day [facility] Citalopram Citalopram 2018-09-05 00:00:00 No 20 Saman ly [facility] Methocarbamol Methocarbamol 2016-03-13 00:00:00 No 500 Three Times A Day as needed for Muscle Spasms [facility] Potassium Chloride (K Dur*) 10 Meq TABCR Potassium Chl oride (K Dur*) 10 Meq TABCR 2016-03-13 00:00:00 No 20 Daily [facility] Immunizations Ordered Immunization Name Filled Immunization Name Date Status Comments Source FLUCELVAX QUAD PF 2019-12-24 00:00:00 Completed Carlos Abrams Vital Signs Vital Name Observation Time Observation Value Comments Source Systolic blood pressure 2020-02-04 12:18:00 124 mm[Hg] Carlos Abrams Diastolic blood pressure 2020-02-04 12:18:00 57 mm[Hg] Carlos Abrams Heart rate 2020-02-04 12:18:00 72 /min Carlos Abrams Respiratory rate 2020-02-04 12:18:00 18 /min Cas Abrams Oxygen saturation in Arterial blood by Pulse oximetry 2019-03 07:50:00 96 /min Carlos Abrams Body temperature 2020-02-04 07:24:15 36.72 Miranda Hous emily Abrams Body weight 2020-02-01 04:00:00 113.399 kg Carlos Abrams BMI 2020-02-01 04:00:00 32.98 kg/m2 [place] [facility] Body height 2019-12-04 17:00:00 185.4 cm [facility] Body Temperature 2019-09-24 16:24:00 97.9 [degF] [facility] Weight 2019-09-21 09:03:00 255.38 [lb_av] [facility] BMI (Body Mass Index) 2019-09-21 09:03:00 34.6 kg/m2 [facility] Body Temperature 2019-09-18 21:28:00 97.8 [degF] [facility] Weight 2019-09-18 17:51:00 277 [lb_av] [facility] BMI (Body Mass Index) 2019-09-18 17:51:00 37.6 kg/m2 [facility] Procedures Procedure Date / Time Performed Performing Clinician Sourc e POC GLUCOSE 2020-02-04 11:28:00 Kamryn [place] [facility]ist POC GLUCOSE 2020-02-04 07:21:00 NoKamryn vergara Meth odist POC GLUCOSE 2020-02-03 19:20:00 Kamryn [place] Meth odist POC GLUCOSE 2020-02-03 15:50:00 NoKamryn vergara Meth odist POC GLUCOSE 2020-02-03 10:54:00 Kamryn [place] Meth odist POC GLUCOSE 2020-02-03 08:08:00 Kamryn [place] Meth odist BASIC METABOLIC PANEL 2020-02-03 04:25:00 KoromaKarin pederson [facility] ESTIMATED GFR 2020-02-03 04:25:00 Karin Koromato n [facility] POC GLUCOSE 2020-02-02 20:03:00 Noor, Kamryn Gonzalez Meth odist POC GLUCOSE 2020-02-02 15:29:00 Noor, Kamryn Gonzalez Meth odist POC GLUCOSE 2020-02-02 11:09:00 Noor, Kamryncameron Gonzalez Meth odist POC GLUCOSE 2020-02-02 07:27:00 Noor, Kamryncameron Gonzalez Meth odist CBC HEMOGRAM 2020-02-02 05:00:00 Karin Koromato n [facility] POC GLUCOSE 2020-02-01 19:54:00 Noor, Kamryn Gonzalez Meth odist POC GLUCOSE 2020-02-01 16:08:00 Noor, Kamryn Gonzalez Meth odist POC GLUCOSE 2020-02-01 11:39:00 Noor, Kamryn Gonzalez Meth odist POC GLUCOSE 2020-02-01 07:34:00 Noor, Kamryn Gonzalez [facility]ist HC COMPLETE BLD COUNT W/AUTO DIFF 2020-02-01 04:05:00 Kathrin King [facility] POC GLUCOSE 2020-01-31 19:58:00 Noor, Kamryn Gonzalez Meth odist POC GLUCOSE 2020-01-31 16:12:00 Noor, Kamryn Gonzalez Meth odist POC GLUCOSE 2020-01-31 11:19:00 Noor, Kamryn Gonzalez Meth odist POC GLUCOSE 2020-01-31 07:37:00 Noor, Kamryn Gonzalez Meth odist POC GLUCOSE 2020-01-30 21:30:00 Noor, Kamryn Gonzalez Meth odist POC GLUCOSE 2020-01-30 15:31:[facility] 2020-01-30 12:26:00 Noor, Kamryn Gonzalez Meth odist POC GLUCOSE 2020-01-30 07:40:00 Noor, Kamryn Gonzalez Meth odist POC GLUCOSE 2020-01-30 06:01:00 [facility] 2020-01-29 19:39:00 [facility] 2020-01-29 17:05:00 Noor, Kamryn Gonzalez Meth odist POC GLUCOSE 2020-01-29 11:48:00 Noor, Kamryn Gonzalez Meth odist POC GLUCOSE 2020-01-29 08:25:00 Noor, Kamryn Gonzalez Meth odist POC GLUCOSE 2020-01-29 05:21:00 Noor, Kamryncameron Gonzalez Meth odist POC GLUCOSE 2020-01-28 19:17:00 Noor, Kamryncameron Gonzalez Meth odist POC GLUCOSE 2020-01-28 16:40:00 Noor, Kamryn Gonzalez Meth odist POC GLUCOSE 2020-01-28 11:29:00 Noor, Kamryncameron Gonzalez Meth odist POC GLUCOSE 2020-01-28 07:16:00 Noor, Kamryncameron Gonzalez Meth odist POC GLUCOSE 2020-01-28 05:47:00 Noor, Kamryncameron Gonzalez Meth odist POC GLUCOSE 2020-01-27 20:42:00 Noor, Kamryn Gonzalez Meth odist POC GLUCOSE 2020-01-27 15:31:00 Noor, Kamryn Gonzalez Meth odist POC GLUCOSE 2020-01-27 11:24:00 Noor, Kamryn Gonzalez Meth odist POC GLUCOSE 2020-01-27 07:57:00 Noor, Kamryn Gonzalez Meth odist POC GLUCOSE 2020-01-27 05:40:00 Noor, Kamryn Gonzalez Meth odist POC GLUCOSE 2020-01-26 20:01:00 Noor, Kamryncameron Gonzalez Meth odist POC GLUCOSE 2020-01-26 15:57:00 Noor, Kamryn Gonzalez Meth odist POC GLUCOSE 2020-01-26 10:27:00 Noor, Kamryn Gonzalez Meth odist POC GLUCOSE 2020-01-26 07:27:00 Noor, Kamryn Gonzalez Meth odist POC GLUCOSE 2020-01-26 06:03:00 Noor, Kamryncameron Gonzalez Meth odist POC GLUCOSE 2020-01-25 19:15:00 Noor, Kamryn Gonzalez Meth odist POC GLUCOSE 2020-01-25 15:40:00 Noor, Kamryn Gonzalez Meth odist POC GLUCOSE 2020-01-25 10:36:00 Noor, Kamryn Gonzalez Meth odist POC GLUCOSE 2020-01-25 07:14:00 Noor, Kamryn Gonzalez Meth odist POC GLUCOSE 2020-01-25 06:03:00 Noor, Kamryn Gonzalez Meth odist HC COMPLETE BLD COUNT W/AUTO DIFF 2020-01-25 04:00:00 Christine Kathrin Abarms BASIC METABOLIC PANEL 2020-01-25 04:00:00 Kathrin King ESTIMATED GFR 2020-01-25 04:00:00 Christine Kathrin Alex Radha priya [facility] POC GLUCOSE 2020-01-24 19:31:00 Noor, Kamryn Gonzalez Meth odist POC GLUCOSE 2020-01-24 15:42:00 Noor, Kamryn Gonzalez Meth odist POC GLUCOSE 2020-01-24 10:51:00 Noor, Kamryn Gonzalez Meth odist POC GLUCOSE 2020-01-24 07:32:00 Noor, Kamryn Gonzalez Meth odist POC GLUCOSE 2020-01-24 05:50:00 Noor, Kamryn Gonzalez Meth odist POC GLUCOSE 2020-01-23 19:31:00 Noor, Kamryn Gonzalez Meth odist POC GLUCOSE 2020-01-23 15:55:00 Noor, Kamryn Gonzalez Meth odist POC GLUCOSE 2020-01-23 11:33:00 Noor, Kamryn Gonzalez Meth odist POC GLUCOSE 2020-01-23 07:10:00 Noor, Kamryn Gonzalez Meth odist POC GLUCOSE 2020-01-23 05:34:00 Noor, Kamryn Gonzalez Meth odist POC GLUCOSE 2020-01-22 20:13:00 Noor, Kamryn Gonzalez Meth odist POC GLUCOSE 2020-01-22 16:18:00 [facility]-01-22 11:25:00 [facility] 2020-01-22 07:25:00 [facility] 2020-01-21 19:33:00 [facility] 2020-01-21 15:38[facility]00 [facility]AT[facility] PCR 2020-01-21 11:54:00 Vy Deutsch [facility] POC GLUCOSE 2020-01-21 11:31:00 Noor, Kamryn Gonzalez Meth odist POC GLUCOSE 2020-01-21 07:37:00 Noor, Kamryn Gonzalez Meth odist POC GLUCOSE 2020-01-21 05:57:00 Noor, Kamryn Gonzalez Meth odist POC GLUCOSE 2020-01-20 19:37:00 Noor, Kamryn Gonzalez Meth odist POC GLUCOSE 2020-01-20 16:20:00 Noor, Kamryn Gonzalez Meth odist POC GLUCOSE 2020-01-20 11:15:00 Noor, Kamryn Gonzalez Meth odist POC GLUCOSE 2020-01-20 07:53:00 Noor, Kamryn Gonzalez Meth odist POC GLUCOSE 2020-01-20 05:31:00 Noor, Kamryn Carlos [place] odist HC COMPLETE BLD COUNT W/AUTO DIFF 2020-01-20 04:35:00 ThopEloy ascencio COMPREHENSIVE METABOLIC PANEL 2020-01-20 04:35:00 ThoppiVy kelley THYROID STIMULATING HORMONE 2020-01-20 04:35:00 ThoppiVy kelley MAGNESIUM LEVEL 2020-01-20 04:35:00 ThoppilVy ethodist PHOSPHORUS LEVEL 2020-01-20 04:35:00 ThoppiVy kelley ESTIMATED GFR 2020-01-20 04:35:00 ThoppiVy kelley M ethodist POC GLUCOSE 2020-01-19 20:09:00 Noor, Kamryn Gonzalez Meth odist POC GLUCOSE 2020-01-19 15:59:00 Noor, Kamryn Gonzalez Meth odist POC GLUCOSE 2020-01-19 11:26:00 Noor, Kamryn Gonzalez Meth odist POC GLUCOSE 2020-01-19 07:31:00 Noor, Kamryn Gonzalez Meth odist POC GLUCOSE 2020-01-19 06:06:00 Noor, Kamryn Gonzalez Meth odist POC GLUCOSE 2020-01-18 20:06:00 Noor, Kamryn Gonzalez Meth odist POC GLUCOSE 2020-01-18 15:40:00 Noor, Kamryn Gonzalez Meth odist POC GLUCOSE 2020-01-18 11:24:00 [facility] 2020-01-18 07:18:00 Noor, Kamryn Viroqua Meth odist POC GLUCOSE 2020-01-18 06:09:00 Noor, Kamryn V[facility]qua Meth odist CREATINE KINASE, TOTAL (CPK) 2020-01-18 04:20:00 Adan Vadlez Gonzalez [facility] POC GLUCOSE 2020-01-17 19:31:00 Noor, Kamryn Gonzalez Meth odist POC GLUCOSE 2020-01-17 15:42:00 [facility] 2020-01-17 10:35:00 [facility] 2020-01-17 07:33:00 [facility] 2020-01-17 06:36:00 [facility] 2020-01-16 19:37:00 [facility] 2020-01-16 15:44:00 [facility] 2020-01-16 11:10:00 [facility] 2020-01-16 07:40:00 [facility]SE 2020-01-15 19:22:00 [facility] 2020-01-15 15:50:00 Noor, Kamryn Gonzalez Meth odist POC GLUCOSE 2020-01-15 11:19:00 [facility] 2020-01-15 07:43:00 [facility] CBC HEMOGRAM 2020-01-15 04:00:00 ObElizabeth collazo BASIC METABOLIC PANEL 2020-01-15 04:00:00 ObElizabeth collazo ton [facility] ESTIMATED GFR 2020-01-15 04:00:00 Noor, Kamryn Gonzalez Meth odist POC GLUCOSE 2020-01-14 20:16:00 [facility] 2020-01-14 16:19:00 [facility]SE 2020-01-14 11:33:00 [facility] 2020-01-14 07:50:00 Noor, Kamryn Gonzalez Meth odist POC GLUCOSE 2020-01-14 04:09:00 Noor, Kamryn Gonzalez Meth odist POC GLUCOSE 2020-01-13 19:08:00 Noor, Kamryn Gonzalez Meth odist POC GLUCOSE 2020-01-13 16:14:00 Noor, Kamryn Gonzalez Meth odist POC GLUCOSE 2020-01-13 11:56:00 Noor, Kamryn Gonzalez Meth odist POC GLUCOSE 2020-01-13 07:49:00 Noor, Kamryn Gonzalez Meth odist POC GLUCOSE 2020-01-13 04:27:00 Noor, Kamryn Gonzalez Meth odist POC GLUCOSE 2020-01-12 20:32:00 Noor, Kamryn Gonzalez Meth odist POC GLUCOSE 2020-01-12 15:57:00 Noor, Kamryn Gonzalez Meth odist POC GLUCOSE 2020-01-12 11:19:00 Noor, Kamryn Gonzalez Meth odist POC GLUCOSE 2020-01-12 07:12:00 Noor, Kamryn Gonzalez Meth odist POC GLUCOSE 2020-01-11 19:36:00 Noor, Kamryn Gonzalez Meth odist POC GLUCOSE 2020-01-11 16:25:00 Noor, Kamryn Gonzalez Meth odist POC GLUCOSE 2020-01-11 11:36:00 Noor, Kamryn Gonzalez Meth odist POC GLUCOSE 2020-01-11 07:16:00 Noor, Kamryn Gonzalez Meth odist CREATINE KINASE, TOTAL (CPK) 2020-01-11 05:20:00 Adan Valdez Gonzalez [facility] URINALYSIS, AUTOMATED WITH MICROSCOPY 2020-01-11 05:20:00 Chrissy Hunter [facility] POC GLUCOSE 2020-01-10 19:18:00 [facility] 2020-01-10 16:02:00 [facility] 2020-01-10 11:08:00 Noor, Kamryn Gonzalez Meth odist POC GLUCOSE 2020-01-10 07:16:00 [facility] 2020-01-10 04:53:00 Noor, Kamryn [place] Meth odist CBC HEMOGRAM 2020-01-10 04:45:00 ObuebinElizabeth Carlos [facility] BASIC METABOLIC PANEL 2020-01-10 04:45:00 Obuekwe, Elizabethxenia Saenz uston [facility] ESTIMATED GFR 2020-01-10 04:45:00 Noor, Kamryn Gonzalez Meth odist POC GLUCOSE 2020-01-09 19:42:00 Noor, Kamryn Gonzalez Meth odist POC GLUCOSE 2020-01-09 16:33:00 Noor, Kamryn Gonzalez Meth odist POC GLUCOSE 2020-01-09 11:19:00 Noor, Kamryn Gonzalez Meth odist POC GLUCOSE 2020-01-09 07:11:00 Noor, Kamryn Gonzalez Meth odist POC GLUCOSE 2020-01-09 05:06:00 Noor, Kamryn Gonzalez Meth odist POC GLUCOSE 2020-01-08 19:34:00 Noor, Kamryn Gonzalez Meth odist POC GLUCOSE 2020-01-08 15:38:00 Noor, Kamryn Gonzalez Meth odist POC GLUCOSE 2020-01-08 11:19:00 Noor, Kamryn Gonzalez Meth odist POC GLUCOSE 2020-01-08 07:34:00 Noor, Kamryn Gonzalez Meth odist POC GLUCOSE 2020-01-07 20:09:00 Noor, Kamryn Gonzalez Meth odist POC GLUCOSE 2020-01-07 16:23:00 Noor, Kamryn Gonzalez Meth odist POC GLUCOSE 2020-01-07 11:51:00 Noor, Kamryn Gonzalez Meth odist POC GLUCOSE 2020-01-07 07:35:00 Noor, Kamryn [place]iro[place] Meth odist POC GLUCOSE 2020-01-06 19:35:00 Noor, Kamryn Viroqua Meth odist POC GLUCOSE 2020-01-06 15:38:00 Noor, Kamryn Viroqua Meth odist POC GLUCOSE 2020-01-06 11:26:00 Noor, Kamryn [place]iro[place] Meth odist POC GLUCOSE 2020-01-06 07:51:00 Noor, Kamryn Gonzalez Meth odist URINE CULTURE 2020-01-05 20:29:00 Chrissy Hunter Me thodist POC GLUCOSE 2020-01-05 19:37:00 Noor, Kamryn [place] Meth odist URINALYSIS SCREEN AND MICROSCOPY, WITH REFLEX TO CULTURE 202 18:55:00 Chrissy Hunter IRee Gonzalez [facility] POC GLUCOSE 2020-01-05 15:20:00 Noor, Kamrynallie Gonzalez Meth odist POC GLUCOSE 2020-01-05 11:39:00 Noor, Kamryn Gonzalez Meth odist POC GLUCOSE 2020-01-05 07:58:00 NoorKamryn Meth odist POC GLUCOSE 2020-01-05 05:21:00 Noor, Kamryn Gonzalez Meth odist POC GLUCOSE 2020-01-04 19:40:00 [facility] 2020-01-04 16:31:00 [facility] POC GLUCOSE 2020-01-04 11:29:00 [facility] POC [facility]UCOSE 2020-01-04 08:27:00 Noor, Kamryn Gonzalez Meth odist POC GLUCOSE 2020-01-04 05:38:00 Noor, Kamryn Gonzalez Meth odist CREATINE KINASE, TOTAL (CPK) 2020-01-04 04:00:00 Adan Valdez HC COMPLETE BLD COUNT W/AUTO DIFF 2020-01-04 04:00:00 Eloy Deutsch BASIC METABOLIC PANEL 2020-01-04 04:00:00 Vy Deutsch THYROID STIMULATING HORMONE 2020-01-04 04:00:00 Vy Deutsch ESTIMATED GFR 2020-01-04 04:00:00 Vy Deutsch ethodist POC GLUCOSE 2020-01-03 19:37:00 Noor, Kamrynallie Gonzalez Meth odist POC GLUCOSE 2020-01-03 16:28:00 NoorFaballie Gonzalez Meth odist POC GLUCOSE 2020-01-03 11:41:00 Noor, Kamryncameron Gonzalez Meth odist POC GLUCOSE 2020-01-03 07:56:00 NoorFaballie Gonzalez Meth odist POC GLUCOSE 2020-01-03 05:10:00 NoorPriyaKamryncameron Gonzalez Meth odist TRANSFUSE RED BLOOD CELLS 2020-01-03 02:19:45 Vy Deutsch POC GLUCOSE 2020-01-02 19:43:00 Noor, Kamryn Gonzalez Meth odist POC GLUCOSE 2020-01-02 15:51:00 Noor, Kamryn Gonzalez Meth odist TYPE AND SCREEN 2020-01-02 12:00:00 Sindycr Vy Lyons ethodist PREPARE RBC 2020-01-02 12:00:00 Sindyopallie Vy Lyons ethodist POC GLUCOSE 2020-01-02 11:17:00 Noor, Kamryn Gonzalez Meth odist POC GLUCOSE 2020-01-02 07:40:00 Noor, Kamryn Gonzalez Meth odist POC GLUCOSE 2020-01-02 05:35:00 [facility] COMPLETE BLD COUNT W/AUTO DIFF 2020-01-02 04:15:00 Eloy hankins EloyReeAllieRee Gonzalez [facility] COMPREHENSIVE METABOLIC PANEL 2020-01-02 04:15:00 [facility]ack[facility] Gonzalez [facility] ESTIMATED GFR 2020-01-02 04:15:00 [facility] Vy GreenwoodRee Carlos Lyons ethodist POC GLUCOSE 2020-01-01 19:56:00 Noor, Kamryn Gonzalez Meth odist POC GLUCOSE 2020-01-01 16:27:00 Noor, Kamryn Gonzalez Meth odist URINALYSIS, AUTOMATED WITH MICROSCOPY 2020-01-01 14:42:00 [facility] Vy LyonsReeMargarita Gonzalez [facility] POC GLUCOSE 2020-01-01 13:25:00 Noor, Kamryn Gonzalez Meth odist POC GLUCOSE 2020-01-01 13:16:00 Noor, Kamryn Gonzalez Meth odist POC GLUCOSE 2020-01-01 11:28:00 Noor, Kamryn Gonzalez Meth odist POC GLUCOSE 2020-01-01 07:36:00 Noor, Kamryn Gonzalez Meth odist POC GLUCOSE 2020-01-01 06:09:00 [facility] 2019-12-31 19:31:00 Noor, Kamryn Gonzalez Meth odist POC GLUCOSE 2019-12-31 15:54:00 [facility] 2019-12-31 12:42:00 [facility] POC GLUCOSE 2019-12-31 07:59:00 [facility] 2019-12-30 19:25:00 [facility] 2019-12-30 16:22:00 [facility] 2019-12-30 12:01:00 Noor, [facility] Meth odist POC GLUCOSE 2019-12-30 07:23:00 Noor, [facility] Meth odist POC GLUCOSE 2019-12-29 19:31:00 [facility] 2019-12-29 16:28:00 Noor, [facility] Meth odist POC GLUCOSE 2019-12-29 11:44:00 Noor, [facility] Meth odist POC GLUCOSE 2019-12-29 07:47:00 Noor, [facility] Meth odist POC GLUCOSE 2019-12-29 05:43:00 Noor, [facility] Meth odist POC GLUCOSE 2019-12-28 19:23:00 Noor, [facility] Meth odist POC GLUCOSE 2019-12-28 15:47:00 Noor, [facility] Meth odist POC GLUCOSE 2019-12-28 11:38:00 Noor, [facility] Meth odist POC GLUCOSE 2019-12-28 07:19:00 Noor, [facility] Meth odist CREATINE KINASE, TOTAL (CPK) 2019-12-28 04:40:00 Adan Valdez [place] [facility] POC GLUCOSE 2019-12-27 19:49:00 Noor, [facility] Meth odist POC GLUCOSE 2019-12-27 16:24:00 Noor, [facility] Meth odist OCCULT BLOOD, STOOL 2019-12-27 14:10:00 Kathrin King [place] [facility] POC GLUCOSE 2019-12-27 11:20:00 Noor, [facility] Meth odist POC GLUCOSE 2019-12-27 07:20:00 Noor, [facility] Meth odist POC GLUCOSE 2019-12-27 05:41:00 Noor, [facility] Meth odist HC COMPLETE BLD COUNT W/AUTO DIFF 2019-12-27 04:00:00 King, Kathrin Abrams BASIC METABOLIC PANEL 2019-12-27 04:00:00 Christine Kathrin Gonzalez [facility] ESTIMATED GFR 2019-12-27 04:00:00 Christine Kathrin Alex Radha powers [facility] POC GLUCOSE 2019-12-26 19:50:00 Noor, Kamryncameron Gonzalez Meth odist POC GLUCOSE 2019-12-26 15:46:00 Noor, Kamryn Gonzalez Meth odist POC GLUCOSE 2019-12-26 11:05:00 Noor, Kamryn Gonzalez Meth odist POC GLUCOSE 2019-12-26 07:51:00 Noor, Kamryn Gonzalez Meth odist POC GLUCOSE 2019-12-26 05:31:00 Noor, Kamryn Gonzalez Meth odist POC GLUCOSE 2019-12-25 20:01:00 Noor, Kamryn Gonzalez Meth odist POC GLUCOSE 2019-12-25 16:40:00 Noor, Kamryn Gonzalez Meth odist POC GLUCOSE 2019-12-25 11:52:00 Noor, Kamryn Gonzalez Meth odist POC GLUCOSE 2019-12-25 07:39:00 Noor, Kamryn Gonzalez Meth odist POC GLUCOSE 2019-12-24 20:18:00 Noor, Kamryn Gonzalez Meth odist POC GLUCOSE 2019-12-24 15:40:00 Noor, Kamryn Gonzalez Meth odist POC GLUCOSE 2019-12-24 11:31:00 Noor, Kamryn Gonzalez Meth odist POC GLUCOSE 2019-12-24 07:40:00 Noor, Kamryn Gonzalez Meth odist POC GLUCOSE 2019-12-23 20:02:00 Noor, Kamryn Gonzalez Meth odist POC GLUCOSE 2019-12-23 16:01:00 Noor, Kamryn Gonzalez Meth odist POC GLUCOSE 2019-12-23 11:30:00 Noor, Kamryn Gonzalez Meth odist POC GLUCOSE 2019-12-23 07:36:00 Noor, Kamryn Gonzalez Meth odist POC GLUCOSE 2019-12-22 19:26:00 Noor, Kamryn Gonzalez Meth odist POC GLUCOSE 2019-12-22 16:01:00 Noor, Kamryn Gonzalez Meth odist POC GLUCOSE 2019-12-22 11:09:00 Noor, Kamryn [place]iro[place] Meth odist POC GLUCOSE 2019-12-22 07:17:00 [facility] 2019-12-21 19:44:00 [facility] 2019-12-21 15:49:00 [facility] 2019-12-21 11:08:00 [facility] 2019-12-21 07:40:00 [facility] CREATINE KINASE, TOTAL (CPK) 2019-12-21 04:15:00 Adan Valdez ricardo Srinivas Gonzalez [facility] POC GLUCOSE 2019-12-20 20:02:00 [facility] 2019-12-20 16:19:00 [facility] 2019-12-20 11:16:00 [facility]SE 2019-12-20 07:46:00 [facility] 2019-12-19 19:56:00 [facility]SE 2019-12-19 15:42:00 [facility]SE 2019-12-19 11:42:00 [facility] 2019-12-19 07:48:00 [facility] 2019-12-18 19:37:00 [facility] 2019-12-18 16:29:00 [facility]SE 2019-12-18 11:28:00 [facility] 2019-12-17 19:42:00 [facility]SE 2019-12-17 15:52:00 [facility]SE 2019-12-17 12:15:00 [facility] 2019-12-17 07:26:00 [facility]SE 2019-12-16 16:02:00 [facility] 2019-12-16 11:27:00 Kamryn Albert Meth odist POC GLUCOSE 2019-12-16 07:26:00 Kamryn Albert Meth odist URINE CULTURE 2019-12-16 07:18:00 Elizabeth Webster XR CHEST 1 VW PORTABLE 2019-12-16 05:07:00 Elizabeth Webster [facility] HC COMPLETE BLD COUNT W/AUTO DIFF 2019-12-16 05:00:00 Theresa Webster [facility] BASIC METABOLIC PANEL 2019-12-16 05:00:00 Elizabeth Webster [facility] URINALYSIS SCREEN AND MICROSCOPY, WITH REFLEX TO CULTURE 202 05:00:00 Elizabeth Webster ESTIMATED GFR 2019-12-16 05:00:00 Kamryn Albert Meth odist POC GLUCOSE 2019-12-15 20:16:00 Kamryn Albert Meth odist POC GLUCOSE 2019-12-15 18:34:00 Carla Elaineas Amna ston [facility] POC GLUCOSE 2019-12-15 17:02:00 Gold Carla Bird Amna ston [facility] POC GLUCOSE 2019-12-15 12:17:00 Carla Elaine Amna ston [facility] BASIC METABOLIC PANEL 2019-12-15 06:10:00 Chrissy Dee on [facility] MAGNESIUM LEVEL 2019-12-15 06:10:00 Chrissy Dee Met hodist ESTIMATED GFR 2019-12-15 06:10:00 Chrissy Dee Met hodist POC GLUCOSE 2019-12-15 05:17:00 Carla Elaine Dean Amna ston [facility] POC GLUCOSE 2019-12-14 19:57:00 GoldCarla Valentine Amna ston [facility] POC GLUCOSE 2019-12-14 16:12:00 Carla Elaine Amna ston [facility] POC GLUCOSE 2019-12-14 11:09:00 Carla Elaine Amna ston [facility] MAGNESIUM LEVEL 2019-12-14 09:42:00 Chrissy Dee Met hodist POC GLUCOSE 2019-12-14 06:30:00 Gold Bird, Carla Moran Amna ston [facility] POC GLUCOSE 2019-12-13 19:48:00 Gold Bird, Carla Moran Amna ston [facility] POC GLUCOSE 2019-12-13 16:18:00 Gold Bird, Carla Moran Amna ston [facility] POC GLUCOSE 2019-12-13 11:29:00 Gold Bird, Carla Moran Amna ston [facility] BASIC METABOLIC PANEL 2019-12-13 09:11:00 Chrissy Dee on [facility] HC COMPLETE BLD COUNT W/AUTO DIFF 2019-12-13 09:11:00 Julia Dee [facility] ESTIMATED GFR 2019-12-13 09:11:00 Chrissy Dee Met hodist POC GLUCOSE 2019-12-12 20:39:00 Gold Bird, Carla Moran Amna ston [facility] POC GLUCOSE 2019-12-12 16:57:00 Gold Bird, Carla Moran Amna ston [facility] POC GLUCOSE 2019-12-12 11:44:00 Gold Bird, Carla Moran Amna ston [facility] POC GLUCOSE 2019-12-12 05:58:00 Gold Bird, Carla Moran Amna ston [facility] POC GLUCOSE 2019-12-11 20:40:00 Gold Bird, Carla Dean Amna ston [facility] POC GLUCOSE 2019-12-11 16:04:00 Gold Bird, Carla Dean Amna ston [facility] POC GLUCOSE 2019-12-11 11:08:00 Gold Bird, Carla Moran Amna ston [facility] POC GLUCOSE 2019-12-11 05:43:00 Gold Bird, Carla Moran Amna ston [facility] POC GLUCOSE 2019-12-10 19:58:00 Gold Bird, Carla Moran Amna ston [facility] POC GLUCOSE 2019-12-10 16:36:00 Gold Bird, Carla Dean Amna ston [facility] POC GLUCOSE 2019-12-10 11:02:00 Gold Bird, Carla Dean Amna ston [facility] COMPREHENSIVE METABOLIC PANEL 2019-12-10 10:50:00 Chrissy Dee [facility] HC COMPLETE BLD COUNT W/AUTO DIFF 2019-12-10 10:50:00 Julia Dee [facility] ESTIMATED GFR 2019-12-10 10:50:00 Chrissy Dee Met hodist POC GLUCOSE 2019-12-10 05:12:00 GoldCarla Valentine Amna ston [facility] POC GLUCOSE 2019-12-09 20:11:00 GoldCarla Valentineu ston [facility] POC GLUCOSE 2019-12-09 16:05:00 Carla Elaine Amna ston [facility] POC GLUCOSE 2019-12-09 11:17:00 Carla Elaine Amna ston [facility] CREATINE KINASE, TOTAL (CPK) 2019-12-09 05:56:00 Sara Elaine se [facility] POC GLUCOSE 2019-12-09 05:33:00 GoldCarla Valentineu ston [facility] POC GLUCOSE 2019-12-08 20:33:00 GoldCarla Valentineu ston [facility] POC GLUCOSE 2019-12-08 15:55:00 Carla Elaine Amna ston [facility] MAGNESIUM LEVEL 2019-12-08 11:25:00 Chrissy Dee Met hodist POC GLUCOSE 2019-12-08 11:09:00 Carla Elaine Amna ston [facility] BASIC METABOLIC PANEL 2019-12-08 06:00:00 Altafericafarrukh Jorgejenna Gonzalez [facility] HC COMPLETE BLD COUNT W/AUTO DIFF 2019-12-08 06:00:00 Yuniorponcho Lissa petty [facility] ESTIMATED GFR 2019-12-08 06:00:00 AltafericaHank chadwickmaykeljenna Gonzalez [facility] POC GLUCOSE 2019-12-08 05:53:00 GoldCarla Valentine Amna ston [facility] POC GLUCOSE 2019-12-07 20:19:00 Gold Bird, Carla Dean Amna ston [facility] POC GLUCOSE 2019-12-07 16:03:00 Gold Bird, Carla Moran Amna ston [facility] POC GLUCOSE 2019-12-07 11:25:00 Gold Bird, Carla Moran Amna ston [facility] POC GLUCOSE 2019-12-07 06:11:00 Gold PelonCarla Amna ston [facility] BASIC METABOLIC PANEL 2019-12-07 05:05:00 Altafjoaquina Jorgejenna Gonzalez [facility] HC COMPLETE BLD COUNT W/AUTO DIFF 2019-12-07 05:05:00 Heather petty Jorgejenna Gonzalez [facility] MAGNESIUM LEVEL 2019-12-07 05:05:00 Yannclay Jorgejenna Gonzalez [facility] ESTIMATED GFR 2019-12-07 05:05:00 YannclayLissady Gonzalez [facility] POC GLUCOSE 2019-12-06 19:53:00 Goldaixa Bird Carla Moran Amna ston [facility] POC GLUCOSE 2019-12-06 15:56:00 Gold PelonCarla Amna ston [facility] POC GLUCOSE 2019-12-06 14:30:00 Gold Pelon, Carla Moran Amna ston [facility] ECG 12-LEAD 2019-12-06 14:25:32 MargaretPardeep Kyra Amna ston [facility] POC GLUCOSE 2019-12-06 11:30:00 Gold Bird Carla Moran Amna ston [facility] HC COMPLETE BLD COUNT W/AUTO DIFF 2019-12-06 11:20:00 Ermelinda Bailey [facility] POC GLUCOSE 2019-12-06 05:47:00 Goldaixa Bird Carla Moran Amna ston [facility] POC GLUCOSE 2019-12-05 19:33:00 Gold Pelon Carla Moran Amna ston [facility] POC GLUCOSE 2019-12-05 16:01:00 Gold Pelon Carla Moran Amna ston [facility] POC GLUCOSE 2019-12-05 11:19:00 Gold Bird, Carla Moran Amna ston [facility] POC GLUCOSE 2019-12-05 05:14:00 GoldCarla Valentine Amna ston [facility] POC GLUCOSE 2019-12-04 20:10:00 Gold Bird, Carla Moran Amna [facility]on [employer] POC GLUCOSE 2019-12-04 16:05:00 GoldCarla Valentine Amna st[facility] [employer] POC GLUCOSE 2019-12-04 11:03:00 Goldaixa Bird, Carla Moran [facility] [employer] POC GLUCOSE 2019-12-04 06:07:00 Gold Bird, Carla Moran [facility]na [facility] [employer] CT UROGRAM 2019-12-03 22:21:40 Isma Travis [facility] POC GLUCOSE 2019-12-03 20:36:00 Gold Bird, Carla Moran Amna ston [employer] POC GLUCOSE 2019-12-03 16:11:00 Gold Bird, Carla Moran Amna [facility] [employer] POC GLUCOSE 2019-12-03 10:57:00 Gold Bird, Carla Moran Amna [facility] [employer] HC COMPLETE BLD COUNT W/AUTO DIFF 2019-12-03 10:55:00 Julia Dee COMPREHENSIVE METABOLIC PANEL 2019-12-03 10:55:00 Chrissy Dee ESTIMATED GFR 2019-12-03 10:55:00 Chrissy Dee [facility] POC GLUCOSE 2019-12-03 05:08:00 Gold Bird Carla Moran Amna [facility] [employer] POC GLUCOSE 2019-12-02 20:16:00 Gold Bird Carla Moran Amna [facility] [employer] POC GLUCOSE 2019-12-02 16:04:00 Goldaixa Bird, Carla Moran [facility] [employer] TYPE AND SCREEN 2019-12-02 13:51:00 Gold Bird, Carla Moran [facility]na [facility] [employer] PREPARE RBC 2019-12-02 13:51:00 Gold Bird, Carla Moran Amna [facility] [employer] URINE CULTURE 2019-12-02 13:42:00 Isma Travis [facility] URINALYSIS SCREEN AND MICROSCOPY, WITH REFLEX TO CULTURE 202 13:17:00 Isma Travis [employer] POC GLUCOSE 2019-12-02 10:44:00 Gold Bird, Carla Dean Amna [facility] [employer] POC GLUCOSE 2019-12-02 05:53:00 Gold Bird, Carla Dean Amna ston [employer] HC COMPLETE BLD COUNT W/AUTO DIFF 2019-12-02 04:45:00 Zayra Huerta [employer] BASIC METABOLIC PANEL 2019-12-02 04:45:00 Riley Huerta [place] [facility] ESTIMATED GFR 2019-12-02 04:45:00 Riley Huerta [employer] CREATINE KINASE, TOTAL (CPK) 2019-12-02 04:45:00 Riley Huerta [employer] POC GLUCOSE 2019-12-01 20:14:00 Gold Bird, Carla Dean Amna ston [employer] POC GLUCOSE 2019-12-01 16:41:00 Gold Bird, Carla Dean Amna [facility]on [employer] POC GLUCOSE 2019-12-01 11:14:00 Gold Bird, Carla Dean Amna [facility] [employer] POC GLUCOSE 2019-12-01 05:59:00 Gold Bird, Carla Dean Amna [facility] [employer] POC GLUCOSE 2019-11-30 19:38:00 Gold Bird, Carla Dean Amna [facility]on [employer] POC GLUCOSE 2019-11-30 16:42:00 Gold Bird, Carla Dean Amna [facility] [employer] POC GLUCOSE 2019-11-30 11:58:00 Gold Bird, Carla Dean Amna [facility]on [facility] POC GLUCOSE 2019-11-30 11:22:00 Gold Bird, Carla Dean Anma [facility] POC GLUCOSE 2019-11-30 06:14:00 Gold Bird, Carla Dean Amna [facility] POC GLUCOSE 2019-11-29 20:00:00 Gold Ibrd, Carla Dean Amna [facility] POC GLUCOSE 2019-11-29 16:19:00 Gold Bird, Carla Mccauleyas Amna [facility] POC GLUCOSE 2019-11-29 11:21:00 Gold Bird, Carla Moran Amna [facility]on [facility] POC GLUCOSE 2019-11-29 06:01:00 Goldaixa Bird, Carla Moran Amna [facility] POC GLUCOSE 2019-11-28 21:02:00 Gold Bird, Carla Moran Amna [facility] POC GLUCOSE 2019-11-28 11:18:00 Gold Bird, Carla Moran Amna ston [facility] POC GLUCOSE 2019-11-28 05:41:00 Gold Bird, Carla Moran Amna ston [facility] POC GLUCOSE 2019-11-27 19:24:00 Gold Bird, Carla Moran Amna ston [facility] POC GLUCOSE 2019-11-27 15:54:00 Goldaixa Bird, Carla Moran Amna ston [facility] POC GLUCOSE 2019-11-27 11:34:00 Gold Bird, Carla Moran Amna ston [facility] POC GLUCOSE 2019-11-27 06:02:00 Gold Bird, Carla Moran Amna [facility] POC GLUCOSE 2019-11-26 20:55:00 Gold Bird, Carla Moran Amna [facility] IR BILATERAL LOWER EXTREMITY ARTERIOGRAM 2019-11-26 18:25:20 Chrissy Ruff [facility] US GUIDED VASCULAR ACCESS 2019-11-26 18:25:20 Pardeep Robles [facility] IR ABDOMINAL AORTOGRAM 2019-11-26 18:25:20 Pardeep Robles [facility] IR REVASC TIB PER W TLA ADD-ON LEFT 2019-11-26 18:25:20 Donovanr Pardeep yusuf [facility] IR REVASC FEM POPL W ATHER LEFT 2019-11-26 18:25:20 Pardeep Robles [facility] IR REVASC TIB PER INITIAL VESSEL W ATHER LEFT 2019-11-26 18: 25:20 Pardeep Robles [facility] POC GLUCOSE 2019-11-26 17:44:00 Carla Elaineu [facility] POC GLUCOSE 2019-11-26 12:02:00 Gold Bird, Carla Dean Amna [facility] CBC WITH PLATELET AND DIFFERENTIAL 2019-11-26 07:00:00 Carla Birch COMPREHENSIVE METABOLIC PANEL 2019-11-26 07:00:00 Zayra Elaine PARTIAL THROMBOPLASTIN TIME (PTT) 2019-11-26 07:00:00 Carla Barbosa PROTHROMBIN TIME WITH INR 2019-11-26 07:00:00 Carla Elaine ESTIMATED GFR 2019-11-26 07:00:00 Carla Elaine [facility] MANUAL DIFFERENTIAL 2019-11-26 07:00:00 Carla Elaine POC GLUCOSE 2019-11-26 06:27:00 Carla Elaine [facility] POC GLUCOSE 2019-11-25 20:13:00 Carla Elaine [facility] US DUPLEX ARTERIAL LOWER EXTREMITY BILATERAL 2019-11-25 12:3 6:59 Chrissy Dee POC GLUCOSE 2019-11-25 10:48:00 Carla Elaine [facility] CREATINE KINASE, TOTAL (CPK) 2019-11-25 06:00:00 Riley Huerta CBC WITH PLATELET AND DIFFERENTIAL 2019-11-25 06:00:00 Hussein Corona Gonzalez [facility] COMPREHENSIVE METABOLIC PANEL 2019-11-25 06:00:00 Claudio Littlejohn ESTIMATED GFR 2019-11-25 06:00:00 Hussein Littlejohn [facility] MANUAL DIFFERENTIAL 2019-11-25 06:00:00 Hussein Littlejohn [facility] POC GLUCOSE 2019-11-25 05:42:00 Carla Elaine [facility] URINALYSIS, AUTOMATED WITH MICROSCOPY 2019-11-25 02:20:00 Carla Pat POC GLUCOSE 2019-11-24 20:01:[address] [facility] ANGIOGRAM ABDOMINAL AORTA AND BILATERAL ILIOFEMORAL RUNOFF W WO CONTRAST 2019-11-24 18:39:54 Chrissy Dee IR PICC PLACEMENT 2019-11-24 17:44:08 Hussein Littlejohn POC GLUCOSE 2019-11-24 16:14:00 Carla Elaine [facility] POC GLUCOSE 2019-11-24 11:09:00 Carla Elaine [facility] POC GLUCOSE 2019-11-24 05:36:00 Carla Elaine VANCOMYCIN LEVEL, TROUGH 2019-11-23 23:37:00 Carla Elaine CBC WITH PLATELET AND DIFFERENTIAL 2019-11-23 23:13:00 Hussein Corona COMPREHENSIVE METABOLIC PANEL 2019-11-23 23:13:00 Claudoi Littlejohn ESTIMATED GFR 2019-11-23 23:13:00 Hussein Littlejohnist MANUAL DIFFERENTIAL 2019-11-23 23:13:00 Hussein Littlejohn POC GLUCOSE 2019-11-23 20:21:00 Carla Elaine [facility] POC GLUCOSE 2019-11-23 16:17:00 Carla Elaine MO AN ELECTIVE ENDOTRACHEAL AIRWAY 2019-11-23 14:03:28 Bijal Mancilla RESECTION, COLON, LOW ANTERIOR, LAPAROSCOPIC 2019-11-23 12:4 9:00 Hussein Littlejohn POC GLUCOSE 2019-11-23 11:30:00 Carla Elaine [facility] POC GLUCOSE 2019-11-23 06:02:00 Carla Elaine BASIC METABOLIC PANEL 2019-11-23 05:15:00 Hussein Littlejohn CBC WITH PLATELET AND DIFFERENTIAL 2019-11-23 05:15:00 Carla Birch ESTIMATED GFR 2019-11-23 05:15:00 Hussein Littlejohn [facility] MANUAL DIFFERENTIAL 2019-11-23 05:15:00 Hussein Littlejohn [facility] POC GLUCOSE 2019-11-22 19:52:00 Carla Elaine [facility] POC GLUCOSE 2019-11-22 16:30:00 Carla Elaine [facility] TRANSFUSE RED BLOOD CELLS 2019-11-22 15:44:49 Carla Elaine POC GLUCOSE 2019-11-22 11:59:00 Carla Elaine [facility] PREPARE RBC 2019-11-22 08:06:00 Carla Elaine [facility] POC GLUCOSE 2019-11-22 05:01:00 Carla Elaine [facility] CBC WITH PLATELET AND DIFFERENTIAL 2019-11-22 04:54:00 Hussein Corona Gonzalez [facility] COMPREHENSIVE METABOLIC PANEL 2019-11-22 04:54:00 Claudio Littlejohn [facility] ESTIMATED GFR 2019-11-22 04:54:00 Hussein Littlejohn [facility] MANUAL DIFFERENTIAL 2019-11-22 04:54:00 Hussein Littlejohn [facility] POC GLUCOSE 2019-11-21 20:02:00 Carla Elaine [facility] POC GLUCOSE 2019-11-21 15:59:00 Carla Elaine [facility] VANCOMYCIN LEVEL, TROUGH 2019-11-21 12:31:00 Hussein Littlejohn [facility] POC GLUCOSE 2019-11-21 11:27:00 Carla Elaine [facility] POC GLUCOSE 2019-11-21 10:33:00 Carla Elaine [facility] ANAEROBIC CULTURE 2019-11-21 09:42:00 Hussein Littlejohn FUNGUS CULTURE 2019-11-21 09:42:00 Hussein Littlejohn [facility] AEROBIC CULTURE 2019-11-21 09:42:00 Hussein Littlejohn [facility] SURGICAL PATHOLOGY REQUEST 2019-11-21 09:11:00 Carla Elaine MO AN ELECTIVE SUPRAGLOTTIC AIRWAY 2019-11-21 08:26:46 Chidi Godwin [facility] DEBRIDEMENT 2019-11-21 08:16:00 Hussein Littlejohn usemily [facility] POC GLUCOSE 2019-11-21 06:05:00 Carla Elaineu stolarisa [facility] BASIC METABOLIC PANEL 2019-11-21 05:55:00 Hussein Littlejohn lla Carlos [facility] ESTIMATED GFR 2019-11-21 05:55:00 Emily Macias Meth odist POC GLUCOSE 2019-11-20 16:40:00 Carla Elaine stolarisa [facility] URINE CULTURE 2019-11-20 12:15:00 Ben Goel URINALYSIS SCREEN AND MICROSCOPY, WITH REFLEX TO CULTURE 202 11:58:00 Ben Goel [facility] POC GLUCOSE 2019-11-20 10:43:00 Carla Elaineu stolarisa [facility] POC GLUCOSE 2019-11-20 05:21:[address] [facility] [address] PELVIS W CONTRAST 2019-11-19 22:24:41 Riley Huertau stolarisa [facility] POC GLUCOSE 2019-11-19 20:48:00 Carla Elaineu ston [facility] POC GLUCOSE 2019-11-19 15:54:00 Carla Elaine Amna ston [facility] POC GLUCOSE 2019-11-19 11:35:00 Carla Elaine Amna ston [facility] TTE COMPLETE, WO CONTRAST, W DOPPLER ([id number]) 2019-11-19 09:0 1:07 Keyla Bailey [facility] POC GLUCOSE 2019-11-19 05:33:00 Carla Elaineu ston [facility] POC GLUCOSE 2019-11-18 20:38:00 Carla Elaine Amna ston [facility] POC GLUCOSE 2019-11-18 16:34:00 Carla Elaine PV PHYSIOLOGIC ARTERIAL LOWER EXTREMITY COMPLETE 2019-11-18 15:25:00 Gene Gomez XR SACRUM AND COCCYX 2019-11-18 13:38:02 Emily Macias Carlos Abrams XR FOOT 3+ VW RIGHT 2019-11-18 13:37:20 Gene Gomez POC GLUCOSE 2019-11-18 11:34:00 Carla Elaine POC GLUCOSE 2019-11-18 05:29:00 Carla Elaine POC GLUCOSE 2019-11-17 21:21:00 Carla Elaine TROPONIN 2019-11-17 20:12:00 Ben Goel LACTIC ACID LEVEL, SEPSIS - NOW AND REPEAT 2X EVERY 3 HOURS 2019-11-17 20:12:00 Ben Goel COVID-19 QUALITATIVE PCR 2019-11-17 17:54:00 Ben Goel TROPONIN 2019-11-17 17:49:00 Ben Goel LACTIC ACID LEVEL, SEPSIS - NOW AND REPEAT 2X EVERY 3 HOURS 2019-11-17 17:49:00 Ben Goel POC GLUCOSE 2019-11-17 17:19:00 Carla Elaine ECG ED PRELIMINARY INTERPRETATION 2019-11-17 14:43:51 Elizabeth Goel VENOUS BLOOD GAS 2019-11-17 14:39:00 Ben Goel XR CHEST 1 VW PORTABLE 2019-11-17 14:34:26 Ben Goel BLOOD CULTURE, AEROBIC & ANAEROBIC 2019-11-17 14:30:00 Theresa Goel TYPE AND SCREEN 2019-11-17 14:30:00 Ben Goel BLOOD CULTURE, AEROBIC & ANAEROBIC 2019-11-17 14:28:00 Theresa Goel COMPREHENSIVE METABOLIC PANEL 2019-11-17 14:28:00 Ben Goel HC COMPLETE BLD COUNT W/AUTO DIFF 2019-11-17 14:28:00 Elizabeth Goel PROTHROMBIN TIME WITH INR 2019-11-17 14:28:00 Ben Goel PARTIAL THROMBOPLASTIN TIME (PTT) 2019-11-17 14:28:00 Elizabeth Goel B NATRIURETIC PEPTIDE 2019-11-17 14:28:00 Ben Goel uston [facility] TROPONIN 2019-11-17 14:28:00 Ben Goel LACTIC ACID LEVEL, SEPSIS - NOW AND REPEAT 2X EVERY 3 HOURS 2019-11-17 14:28:00 Ben Goel ESTIMATED GFR 2019-11-17 14:28:00 Ben Goel ECG 12-LEAD 2019-11-17 14:14:47 Ben Goel Ultrasound, renal 2019-09-20 00:00:00 [facility] Ultrasound guidance for vascular access 2019-09-19 00:00:00 [facility] CT of abdomen and pelvis without contrast 2019-09-18 00:00:00 [facility] Plan of Care Planned Activity Planned Date Details Comments Source Future Scheduled Test 2020-12-19 00:00:00 DIABETIC FOOT EXAM [code = DIABETIC FOOT EXAM] [facility] Future Scheduled Test 2005 00:00:00 65+ PNEUMOCOCCAL V ACCINE (1 of 1 - PPSV23) [code = 65+ PNEUMOCOCCAL VACCINE (1 of 1 - PPSV23)] [facility] Future Scheduled Test 1990 00:00:00 SHINGLES VACCINES (#1) [code = SHINGLES VACCINES (#1)] [facility] Future Scheduled Test 1950 00:00:00 DIABETES: RETINAL EYE EXAM [code = DIABETES: RETINAL EYE EXAM] [facility] Future Scheduled Test 1950 00:00:00 URINE MICROALBUMIN [code = URINE MICROALBUMIN] Carlos Abrams Encounters Start Date/Time End Date/[facility] En[facility] Source 2019-12-15 00:00:00 2020-02-04 00:00:00 Inpatient KAMRYN ALBERT [id number] [facility] 2019-11-17 00:00:00 2019-12-15 00:00:00 Inpatient Zayra ELAINE [facility] [id number] [facility] 2018-12-29 15:48:00 2018-12-29 19:20:00 Departed Emergency Room 1 GRACE HERRERA [facility] [id number] [facility] 2018-10-27 15:38:00 2018-11-07 19:57:00 Discharged Inpatient 1 SHERIDAN MAHONEY [facility] [id number] [facility] 2018-09-08 17:34:00 2018-09-08 20:51:00 Departed Emergency Room [facility] [id number] [facility] 2018-09-04 20:34:00 2018-09-07 16:50:00 Discharged Inpatient 1 BRI RENEE [facility] [id number] [facility] 2018-06-23 18:17:00 2018-06-26 17:53:00 Discharged Inpatient 1 SHERIDAN MAHONEY [facility] [id number] [facility] Results Test Description Test Time Test Comments Results Result Comments Source CHEST SINGLE (PORTABLE) 2020-02-18 21:29:00 [facility] 1940 Sex: M [facility] [address] [address] Patient Name: SHAHRIAR LEAL MR #: [id number] : 1940 Age/Sex: 79/M Req #: [id number] Adm Physician: JEREMY MCGINNIS MD Ordered by: JEREMY MCGINNIS MD Report #: [id number] Location: MED/SURG2 Room/Bed: [facility] Procedure: [id number] DX/CHEST SINGLE (PORTABLE) Exam Date: 02/18/20 Exam Time: 2051 REPORT STATUS: Signed EXAMINATION: CHEST SINGLE (PORTABLE) INDICATION: PICC LINE VERIFICATION 20200218 COMPARISON: Chest x-ray on 09/21/2019. FINDINGS: The bilateral costophrenic sulcus are excluded from qsshp-pi-qjpw. TUBES and LINES: Right PICC which terminates at the cavoatrial junction. Cardiac pacemaker is unchanged. LUNGS: Normal lung volumes. There is diffuse interstitial prominence. No consolidations. PLEURA: No pleural effusion or pneumothorax. HEART AND MEDIASTINUM: The cardiomediastinal silhouette is unremarkable. There is atherosclerotic calcification of the aortic knob. BONES AND SOFT TISSUES: Degenerative changes in the spine and shoulders. Soft tissues are unremarkable. UPPER ABDOMEN: No free air under the diaphragm. IMPRESSION: 1. Right PICC which terminates at the cavoatrial junction. 2. Diffuse prominent interstitial lung markings which may represent chronic changes versus reactive airway disease or bronchitis in the proper clinical context. Signed by: Claudia Wolfe MD on 02/18/2020 9:32 PM Dictated By: CLAUDIA WOLFE MD 31 Transcribed By: TIANA on 02/18/202131 COPY TO: JEREMY MCGINNIS MD POC glucose 2020-02-04 12:05:15 Test Item POC glucose (test code = 50827-5) 180 mg/dL 65-99 H Point of Care Testing performed at [facility],[address], [place], [place] [address]Bleuyprj Name: Ryan Broderick ID: [id number]: HMW Notified check inspector Interpretation (test code = 90796-2) Abnormal [facility] metabolic [id number] 06:57:03* Test Item Value Reference Range Interpretation Comments Sodium (test code = 2951-2) 138 135- 148 mEq/L Potassium (test code = 2823-3) 4.9 3.5- 5.0 mEq/L Chloride (test code = 5-0) 103 99- 109 mEq/L CO2 (test code = 2027-9) 26 24- 31 mEq/L Anion gap (test code = 47147-4) 9@ANIO 7- 15 mEq/L BUN (test code = 3094-0) 54 mg/dL 8-24 H Creatinine (test code = 2160-0) 0.73 mg/dL 0.7-1.2 Glucose (test code = 2345-7) 141 mg/dL 65-99 H Calcium (test code = 76125-2) 9.1 mg/dL 8.6-10.6 Lab Interpretation (test code = 65427-9) [facility] [id number] 06:57:03* Test Item Value Reference Range Interpretation Comments Estimated GFR (test code = 5488) 88 mL/min/1.73 m2 Catergory Units InterpretationG1 >=90 Normal or highG2 60-89 Mildly rmcdfkcdnU2a 45-59 Mildly to moderately zkvfhtormA7t 30-44 Moderately to severely decreasedG4 15-29 Severely decreasedG5 <15 Kidney failureThe eGFR was calculated using the Chronic Kidney Disease Epidemiology Collaboration (CKD-EPI) equation. Interpretation is based on recommendations of the National Kidney Foundation-Kidney Disease Outcomes Quality Initiative (NKF-KDOQI) published in 2014. [facility] qunpjvzp2378-82-46 06:52:53* Test Item Value Reference Range Interpretation Comments WBC (test code = 37551-0) 8.62 4.50- 11.00 k/uL RBC (test code = 38390-3) 3.13 m/uL 4.4-6 L HGB (test code = 718-7) 8.5 g/dL 14-18 L HCT (test code = 4544-3) 27.8 % 41-51 L MCV (test code = 787-2) 88.8 fL 82-100 MCH (test code = 785-6) 27.2 pg 27-34 MCHC (test code = 786-4) 30.6 g/dL 31-37 L RDW - SD (test code = 50952-8) 55.7 fL 37-55 H MPV (test code = 31760-1) 11.7 fL 8.8-13.2 Platelet count (test code = 77841-6) 209 150- 400 k/uL Lab Interpretation (test code = 44175-3) [facility] and engmhqeinvmh5443-40-32 07:30:50* Test Item Value Reference Range Interpretation Comments WBC (test code = 98124-9) 8.65 4.50- 11.00 k/uL RBC (test code = 88860-1) 2.57 m/uL 4.4-6 L HGB (test code = 718-7) 7.1 g/dL 14-18 L HCT (test code = 4544-3) 22.7 % 41-51 LL HCT results called to and read back by ALEXIS/BRIDGER KHALIL at 02/01/2020 07:28 by KARUNA_. MCV (test code = 787-2) 88.3 fL 82-100 MCH (test code = 785-6) 27.6 pg 27-34 MCHC (test code = 786-4) 31.3 g/dL 31-37 RDW - SD (test code = 23890-7) 54.7 fL 37-55 MPV (test code = 19067-6) 11.8 fL 8.8-13.2 Platelet count (test code = 51848-1) 188 150- 400 k/uL Neutrophils (test code = 66743-3) 41.1 % 39-69 Lymphocytes (test code = 01224-7) 43.9 % 25-45 Monocytes (test code = 63649-6) 13.1 % 0-10 H Eosinophils (test code = 71080-6) 1.0 % 0-5 Basophils (test code = 47739-3) 0.3 % 0-1 Immature granulocytes (test code = 84052-0) 0.6 % 0-1 Lab Interpretation (test code = 80552-0) Abnormal [facility] qualitative [id number] 19:46:25* Test Item Value Reference Range Interpretation Comments Interpretation (test code = 5974990) Negative results do not preclude 2019-nCoV infection and should not be used as the sole basis for treatment or other patient management decisions. Negative results must be combined with clinical observations, patient history, and epidemiological information. COVID-19 qualitative PCR result (test code = 25089-3) Not-Detect ed Not-Detected COVID-19 qualitative PCR (test code = 7070) See link below for P DF Lab Report [facility] stimulating [id number] 07:21:16* Test Item Value Reference Range Interpretation Comments TSH (test code = 3016-3) 6.27 0.55- 4.78 uIU/mL H Lab Interpretation (test code = 43267-7) Abnormal [facility] gvpan5727-05-42 07:18:27* Test Item Value Reference Range Interpretation Comments Sodium (test code = 2951-2) 135 135- 148 mEq/L Potassium (test code = 2823-3) 4.6 3.5- 5.0 mEq/L Chloride (test code = 2075-0) 98 99- 109 mEq/L L CO2 (test code = 2027-9) 26 24- 31 mEq/L Anion gap (test code = 31398-4) 11@ANIO 7- 15 mEq/L BUN (test code = 3094-0) 38 mg/dL 8-24 H Creatinine (test code = 2160-0) 0.65 mg/dL 0.7-1.2 L Glucose (test code = 2345-7) 150 mg/dL 65-99 H Calcium (test code = 32612-5) 8.8 mg/dL 8.6-10.6 Protein (test code = 2885-2) 6.9 g/dL 6.3-8.2 Albumin (test code = 1751-7) 2.5 g/dL 3.5-5 L A/G ratio (test code = 1759-0) 0.6 0.7-3.8 L Alkaline phosphatase (test code = 6768-6) 59 U/L 30-115 AST (test code = 1920-8) 29 U/L 15-46 ALT (test code = 1742-6) 54 U/L 10-55 Total bilirubin (test code = 1974-) <0.3 0.2-1.2 Lab Interpretation (test code = 10091-9) Abnormal [facility] tatfz3020-45-28 07:18:27* Test Item Value Reference Range Interpretation Comments Magnesium (test code = 84133-0) 1.6 mg/dL 1.7-2.4 L Lab Interpretation (test code = 40818-5) Abnormal [facility]Phosphorus [id number] 07:18:27* Test Item Value Reference Range Interpretation Comments Phosphorus (test code = 2777-1) 3.7 mg/dL 2.5-4.8 [facility]Creatine kinase, total (CPK)2020-01-18 07:06:30* Test Item Value Reference Range Interpretation Comments Creatine kinase (test code = 2157-6) 23 U/L 35-200 L Lab Interpretation (test code = 84205-3) Abnormal [facility] MethodistUrinalysis, automated with fsdkdwjdor5114-22-51 07:01:27* Test Item Value Reference Range Interpretation Comments Color, UA (test code = 5778-6) Yellow Appearance, UA (test code = 5767-9) Clear Specific gravity, UA (test code = 5811-5) 1.019 1.001-1.035 pH, UA (test code = 5803-2) 5.0 5.0-8.5 Protein, UA (test code = 50774-4) 1+ Negative A Glucose, UA (test code = 07017-1) Negative Negative Ketones, UA (test code = 2514-8) Trace Negative A Bilirubin, UA (test code = 5770-3) Negative Negative Blood, UA (test code = 5794-3) Negative Negative Nitrite, UA (test code = 5802-4) Negative Negative Urobilinogen, UA (test code = 06502-0) <2.0 <2.0 Leukocyte esterase, UA (test code = 5799-2) Negative Negative Epithelial cells, UA (test code = 5787-7) <1 /HPF WBC, UA (test code = 5821-4) 4 0- 1 /HPF H RBC, UA (test code = 53371-4) 8 0- 5 /HPF H Bacteria, UA (test code = 78890-1) None seen None seen Hyaline casts, UA (test code = 5796-8) 3-5/lpf /LPF Yeast, UA (test code = 48797-0) None seen Yeast with pseudohyphae, UA (test code = 60976-7) None seen Lab Interpretation (test code = 41550-9) Abnormal [facility] MethodistUrine [id number] 04:31:12* Test Item Value Reference Range Interpretation Comments Urine culture isolate (test code = 88243-9) Mixed tico <=10-3 col/ cc Specimen InformationSpecimen Source: UrineSpecimen Site: Catheterized [facility] MethodistUrinalysis screen and microscopy, with reflex to culture 2020-01-05 20:30:32* Test Item Value Reference Range Interpretation Comments Specimen site (test code = 0059783) Catheterized Color, UA (test code = 5778-6) Yellow Appearance, UA (test code = 5767-9) Sl Cloudy Specific gravity, UA (test code = 5811-5) 1.024 1.001-1.035 pH, UA (test code = 5803-2) 5.0 5.0-8.5 Protein, UA (test code = 94547-6) 1+ Negative A Glucose, UA (test code = 33359-9) Negative Negative Ketones, UA (test code = 2514-8) Trace Negative A Bilirubin, UA (test code = 5770-3) Negative Negative Blood, UA (test code = 5794-3) Negative Negative Nitrite, UA (test code = 5802-4) Negative Negative Urobilinogen, UA (test code = 36727-9) <2.0 <2.0 Leukocyte esterase, UA (test code = 5799-2) Large Negative A WBC, UA (test code = 5821-4) 129 0- 1 /HPF H RBC, UA (test code = 30509-3) 18 0- 5 /HPF H Bacteria, UA (test code = 71530-9) Few None seen Yeast, UA (test code = 99324-3) None seen Yeast with pseudohyphae, UA (test code = 42618-2) None seen Hyaline casts, UA (test code = 5796-8) 3-5/lpf /LPF Lab Interpretation (test code = 21627-6) Abnormal [facility] RBC, 1 [id number] 20:59:00* Test Item Value Reference Range Interpretation Comments Product name (test code = 25) Red Blood Cells -1, Leukored Unit number (test code = 4909278) [id number] Product code (test code = 3092) [id number] Dispense status (test code = 24) Transfused Blood expiration date (test code = 302) [id number] Blood type code (test code = 308) 600 Blood type (test code = 1314) A NEGATIVE Compatibility (test code = 6400) Compatible [facility] MethodistType and uqelch1305-39-49 13:22:00* Test Item Value Reference Range Interpretation Comments ABO grouping (test code = 883-9) A Rh type (test code = 86594-9) NEG Antibody screen (gel) (test code = 890-4) NEG [facility] MethodistOccult blood, dnnyw0543-06-16 15:58:16* Test Item Value Reference Range Interpretation Comments Occult blood, stool (test code = 2334-1) Negative for occult blood. Specimen InformationSpecimen Source: StoolSpecimen Site: Nonpreserved [facility] MethodistXR Chest 1 Vw Rgfqckwl1875-01-33 08:15:32Hm Interface, Radiology Results 12/16/2019 8:18 AM CDTEXAM:XR CHEST 1 VW PORTABLEINDICATION:NEW ADMITCOMPARISON:Chest AP dated 11/17/2019.IMPRESSION: Interval placement right upper extremity PICC with tip at superior cavoatrial ju nction.Otherwise unchanged.Left chest AICD with left subclavian approach leads o verlying right atrium, right ventricle, coronary sinus.Heart size is normal. Mod erate atherosclerosis aortic arch.Moderate degenerative changes thoracic spine.H [id number] MethodistECG 12 qtdh6560-90-60 21:26:05* Test Item Value Reference Range Interpretation Comments Ventricular rate (test code = 253) 66 Atrial rate (test code = 255) 66 MO interval (test code = 266) 160 QRSD interval (test code = 260) 146 QT interval (test code = 264) 514 QTC interval (test code = 265) 538 P axis 1 (test code = 267) 75 QRS axis 1 (test code = 268) -48 T wave axis (test code = 270) 103 EKG impression (test code = 273) Electronic ventricula r pacemaker-In automated comparison with ECG of 17-NOV-2019 14:14,-Vent. rate has decreased BY 34 BPM- [facility] Wsalvbo5049-57-61 23:59:28Hm Interface, Radiology Results - 12/04/2019 12:02 AM CDTEXAMINATION: CT UROGRAMCLINICAL HISTORY: 79 years Male Hematuria unknown cause, gross hematuria. hematuria protocol.TECHNIQUE: CT of the abdomen and pelvis was [...] radiation dose. COMPARISON: CTA abdomen/pelvis with runoff 11/24/2019IMPRESSION:LUNG BASES:Trace bilateral pleural effusions are present. Mild atelectatic changes are noted in both lower lobes. No cardiomegaly. AICD leads are partially visualized in the right atrium, coronary sinus branch, and right ventricle. Coronary artery calcifications are noted.ABDOMEN:Liver: The liver is normal. No focal mass.Gallbladder/Biliary: The gallbladder is normal. There is no evidence of intra or extrahepatic biliary ductal dilatation.Spleen: The spleen is not en larged.Pancreas: The pancreas is unremarkable.Adrenal Glands: The adrenal glands are unremarkable.Kidneys: A simple cyst in the right kidney measures 1.4 cm. An additional indeterminate lesion is seen adjacently along the interpolar region of the right renal pelvis measuring 1.6 cm. A simple cyst along the upper pole o f the right kidney measures 1.3 cm. No nephrolithiasis or hydronephrosis is note d bilaterally.Vascular: Scattered atherosclerotic calcification affects the abdo sasha aorta and its major branches.Nodes: No enlarged retroperitoneal or mesente oli lymphadenopathy.Bowel: Postsurgical changes of sigmoid colon resection are s een with a left lower quadrant colostomy in place. A few prominent fluid-filled loops of small bowel are seen throughout the abdomen without significant adjacen t inflammatory changes. No definitive evidence of bowel obstruction is seen. The appendix is not clearly identified.Ascites/fluid collections: No ascites or flu id collections.PELVIS:The prostate is enlarged measuring up to 6 cm in the trans verse dimension. There is mild thickening and distention of the urinary bladder. There is faint contrast excretion within the urinary bladder on postcontrast im ages. No definitive bladder mass identified. MUSCULOSKELETAL: Sacral decubitus u lceration is again noted along the superior margin of the gluteal cleft with adj acent erosive changes involving the coccyx. 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 Moderate degenerative changes affect the spine. SUMMARY:1.Mild thickening a nd distention of the urinary bladder, likely secondary to chronic bladder outlet obstruction from the enlarged prostate gland. No definitive bladder mass identi fied. Cystitis cannot be excluded. Correlation with urinalysis is recommended.2. Indeterminate lesion in the midpole of the right kidney measuring 1.6 cm. 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.[id number] Revasc Tib Per Initial Vessel W Ather [id number] 07:57:49Hm Interface, Radiology Results Incoming - 11/29/2019 8:00 AM CDTPROCEDURE: IR REVASC TIB PER INITIAL VESSEL W ATHER LEFTThis exam was performed in the Radiology department.Fluoro time: 24:31 minutesIMPRESSION:A complete separate report will be issued in operative notes by the performing physician.[id number] Revasc Tib Per W Tla Add-On [id number] 07:57:40Hm Interface, Radiology Results Incoming - 11/29/2019 8:00 AM CDTPROCEDURE: IR REVASC TIB PER W TLA ADD-ON LEFTThis exam was performed in the Radiology department.Fluoro time: 24:31 minutesIMPRESSION:A complete separate report will be issued in operative notes by the performing physician.[id number] Revasc Fem Popl W Ather [id number] 07:57:25Hm Interface, Radiology Results 11/29/2019 8:00 AM CDTPROCEDURE: IR REV ASC FEM POPL W ATHER LEFTThis exam was performed in the Radiology department.Fluoro time: 24:31 minutesIMPRESSION:A complete separate report will be issued in operative notes by the performing physician.[id number] Aortogram Abdominal 2019-11-29 07:57:09Hm Interface, Radiology Results 11/29/2019 8:00 AM CDTPROCEDURE: IR ABDOMINAL AORTOGRAMThis exam was performed in the Radiology department.Fluoro time: 24:31 minutesIMPRESSION:A complete separate report will be issued in operative notes by the performing physician.[id number]US Guided Vascular [id number] 07:56:58Hm Interface, Radiology Results 11/29/2019 8:00 AM CDTPROCEDURE: US GUIDED VASCULAR ACCESSThis exam was performed in the Radiology department.IMPRESSION:A complete separate report will be issued in operative notes by the performing physician.[id number] Bilateral Lower Extremity Arteriogram 2019-11-29 07:56:32Hm Interface, Radiology Results 11/29/2019 7:59 AM CDTPROCEDURE: IR BILATERAL LOWER EXTREMITY ARTERIOGRAMThis exam was performed in the Radiology department.Fluoro time: 24:31 minutesIMPRESSION:A complete separate report will be issued in operative notes by the performing physician.[id number] PICC [id number] 09:52:14Hm Interface, Radiology Results 11/26/2019 9:55 AM CDTPERFORMING RAD IOLOGIST:Shiva Xavier MDASSISTANTS:None.ANESTHESIA TYPE:No sedation was p rovided. Lidocaine 1% was used for local anesthetic.ANTIBIOTICS:None.PRE PROCEDU RE DIAGNOSIS:Need for long-term central venous access.POST PROCEDURE DIAGNOSIS:S tatus post placement right upper extremity PICC.PROCEDURE:1. Limited preprocedur e ultrasound of the upper extremity.2. Successful placement right upper extremit y PICC.TECHNIQUE:Written informed consent was obtained prior to the procedure. L imited preprocedure ultrasound of the upper extremity was performed. The right b asilic vein was identified as a suitable target. Then, the right upper extremity was sterilely prepared and draped in the routine manner. Maximal sterile bree r, hand hygiene, skin preparation technique was followed. Under ultrasound claudia nce, documentation of vessel patency, needle access with permanent recording, an d reporting are performed followed by placement of a sheath in the aforementione d vein. Using real-time ultrasound guidance, overlying soft tissues were anesthe tized with Lidocaine 1% via a 25-gauge needle. Then, also using real-time ultras ound guidance, a 21-gauge micropuncture needle was used to access the aforementi oned vein. A 0.018 inch guidewire was advanced centrally to the right atrium un ela fluoroscopy. The needle was removed and a 5.5-Scottish peel-away sheath was th en placed. A 47 cm long 5-Scottish dual-lumen Power PICC was then deployed over th e guidewire and through the peel-away sheath. The catheter tip was placed at the right atrium/superior vena cava junction under fluoroscopic guidance. All ports were tested and demonstrate adequate flow. The catheter was secured to then skin using 2-0 silk suture. The patient tolerated the procedure well. COMPLICATION S:None. RADIATION DOSE:Ka,r = 3.76 mGy.IMPRESSION: Successful ultrasound and flu oroscopic-guided placement of a 47 cm long 5 Scottish dual-lumen Power PICC via th e right basilic vein. The catheter tip lies at the right atrium/superior vena ca va junction .PLAN:- PICC is ready for immediate use.- Recommend routine dressing changes and flushing with 10 cc normal saline after use. [facility]-[id number] MethodistManual [id number] 08:08:17* Test Item Value Reference Range Interpretation Comments Manual differential (test code = 23009-6) PERFORMED Neutrophils (test code = 74910-2) 74.0 % 39-69 H Lymphocytes (test code = 88687-7) 21.0 % 25-45 L Monocytes (test code = 82960-0) 5.0 % 0-10 Eosinophils (test code = 10217-7) 0.0 % 0-5 Basophils (test code = 86905-4) 0.0 % 0-1 Metamyelocytes (test code = 740-1) 0 % Promyelocytes (test code = 783-1) 0 % Platelet slide review (test code = 95748-7) Miya adequate Anisocytosis (test code = 702-1) Moderate Lab Interpretation (test code = 99729-8) Abnormal [place] MethodistProthrombin time with [id number] 07:20:38* Test Item Value Reference Range Interpretation Comments Prothrombin time (test code = 5902-2) 14.5 11.5- 14.5 sec INR (test code = 92270-8) 1.1 Th e International Normalized Ratio (INR) is a therapeutic monitoring tool for patients who are stable on oral anticoagulant therapy. An INR of 2.0-3.0 is suggested for deep vein thrombosis/pulmonary embolism. [place] MethodistPartial thromboplastin time, [id number] 07:20:38* Test Item Value Reference Range Interpretation Comments PTT (test code = 49482-0) 35.9 23.0- 36.0 sec PTT therapeutic range for unfractionated heparin is61.0-112.0 seconds which corresponds to Anti-Xa0.3-0.7 U/ml. Carlos AbramsUs duplex arterial lower rixcckvhw4094-46-52 14:58:33* Test Item Value Reference Range Interpretation Comments Left tib/per trunk sys PSV (test code = 6237888594) 112 cm/s RT ATIB DIST PSV (test code = 9251733308) 108.20 cm/s RT ATIB MID PSV (test code = 7092912794) 66.20 cm/s RT ATIB PROX PSV (test code = 3627912404) 30.5 cm/s RT PROX TYPE ROLLING MACHINE OPERATOR PSV (test code = 2705230857) 98.6 cm/s LT VIDHI PROX PSV (test code = 4209905035) 52.1 cm/s LT POP DIST PSV (test code = 8190270539) 96.4 cm/s LT POP PROX PSV (test code = 2626475170) 150.8 cm/s LT TELESCOPE OPERATOR DIST PSV (test code = 4994778776) 0.00 cm/s LT TELESCOPE OPERATOR MID PSV (test code = 9101903426) 18.50 cm/s LT TELESCOPE OPERATOR PROX PSV (test code = 7386535521) 100.9 cm/s RT TELESCOPE OPERATOR DIST PSV (test code = 7959025690) 19.40 cm/s RT TELESCOPE OPERATOR MID PSV (test code = 8416994899) 19.80 cm/s RT TELESCOPE OPERATOR PROX PSV (test code = 5135953420) 36.5 cm/s LT SFA DIST PSV (test code = 6984222545) 194.90 cm/s LT SFA MID PSV (test code = 3248016690) 82.6 cm/s LT SFA PROX PSV (test code = 8482477389) 88.1 cm/s RT SFA DIST PSV (test code = 8545155302) 53.1 cm/s RT SFA MID PSV (test code = 9508016916) 71.6 cm/s RT SFA PROX PSV (test code = 4216965341) 74 cm/s L POP MID PSV (test code = 1843346713) 88.70 cm/s L PFA PROX PSV (test code = 4686541231) 106.3 cm/s R PFA PROX PSV (test code = 4822789465) 64.2 cm/s RT DIST TYPE ROLLING MACHINE OPERATOR PSV (test code = 4260219291) 77.7 cm/s LT DIST TYPE ROLLING MACHINE OPERATOR PSV (test code = 6527385846) 119.2 cm/s RT MID VIDHI PSV (test code = 6527654975) 30.1 cm/s KEVIN (test code = KEVIN) Bilateral lower extremity ar terial duplex exam shows evidence of scattered arterial wall calcifications.RIGHTLess than 50% stenosis within the distal right anterior tibial artery. (Ratio 1.6).High resistive waveforms in the distal posterior tibial artery suggestive of a outflow stenosis.LEFT50 to 75% stenosis within the distal superficial femoral artery. 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 (Ratio 2.5)Less than 50% stenosis within the proximal left popliteal artery. (Ratio 1.4)Occlusion of the left distal posterior tibial artery.Anterior tibial artery was not well examined for the patient had requested to hold the examination. Gonzalez MethodanikaCTMikey Abdominal Aorta And Bilateral Iliofemoral Runoff W Wo [id number] 19:27:22Hm Interface, Radiology Results 11/24/2019 7:30 PM CDTCT ANGIOGRAM ABDOMINAL AORTA AND BILATERAL ILIOFEMORAL RUNOFF W WO CONTRASTCLINICAL INDICATION: PAD chronic nonhealing ulcerTECHNIQUE: CT angiography of the abdomen and pelvis was performed following the intravenous administration of iodinated contrast material and with runoff of the lower extremities with automated exposure control and/or iterative reconstruction techniques to radiation dose. In addition, postprocessed 3D MIP and volume rendered images were also performed specifically for CT angiography. COMPARISON: 07/20/2019 FINDINGS:Please note, while this is a CT angiogram, the contrast bolus timing is suboptimal through the pelvis and distal extremities with very poor opacification which may be technical with the scanner outrunning the contrast bolus.AORTA: Aorta is normal in caliber with moderately advanced eccentric atherosclerotic plaque. No aneurysm, ulceration, or significant stenosis.MESENTERIC ARTERIES: The celiac axis, superior mesenteric artery, and inferior mesenteric artery are patent without significant stenosis.RENAL ARTERIES: Single bilateral patent renal arteries are present bilateral ly.------RIGHT ILIAC ARTERIES: Right common, internal, and external iliac arter ies are patent with mild eccentric plaque through the external iliac artery, mod erate disease present through the internal iliac. Right common femoral artery is patent with mild nonrate limiting plaque noted.RIGHT EXTREMITY RUNOFF: Evaluat ion is limited given degree of calcification as well as contrast. I do not belie ve I can reliably assess areas of stenosis which are suspected with extensive ca lcifications and areas of at least moderate stenosis. Ultrasound evaluation may be helpful to assess for flow to the lower extremity. MR can also be performed w here as it is less susceptible to the degree of calcification and assessment of calf vessel patency.-----LEFT ILIAC ARTERIES: Left common iliac artery is paten t as are the internal and external iliac arteries with minimal plaque through th e distal external iliac.LEFT EXTREMITY RUNOFF: Left common femoral artery is pa tent with mild stenosis. Superficial femoral and profunda femoral appear patent proximally but there is very limited contrast within the femoral artery with are as of suspected moderate stenosis. Very limited assessment noted through the pop liteal artery and arteries of the calf given severe calcification and contrast b olus.-----OTHER FINDINGS: ABDOMEN: The liver, spleen, pancreas, adrenal glands , and kidneys are without suspicious mass, 1.5 x 1.6 cm cyst noted in the interp olar right kidney. There is mild prominence of the bilateral renal collecting sy stems which given asymmetry may reflect changes of bladder outlet obstruction or neurogenic bladder, the latter favored given prostatomegaly. No significant per inephric stranding. The gallbladder is distended, correlate for nothing by mouth status. Bowel is normal in caliber without wall thickening or inflammatory duran ges. A rectosigmoid pouch is noted in the pelvis with diverting left-sided colos natalie. Moderate fecal debris noted through the colon. No pathological lymphadenop athy or ascites.PELVIS: Urinary bladder is distended with wall thickening. The prostate is markedly enlarged and measures 4.6 x 6.0 x 5.7 cm. No free fluid thr ough the pelvis. No suspicious adenopathy.MUSCULOSKELETAL: Mild to moderate tho racolumbar spondylosis is present. Fatty infiltration of pelvic and thigh muscul ature suggestive of disuse. Sacral decubitus ulceration is noted extending to ching ne with sclerosis along the dorsal margin of the distal sacrum with focal osteol ysis consistent with osteomyelitis (series 2 image 179). Moderate osteoarthrosis of the hips. Amputation of the right fifth ray is noted about the metatarsal mi dshaft, correlate with history and radiographs. No overlying soft tissue ulcerat ion is identified. Prominent ossification and thickening of the Achilles tendon are consistent with severe tendinosis. There is asymmetric soft tissue edema thr oughout the left calf.LUNG BASES: The heart is moderately enlarged with multipl e cardiac leads partially visualized. Small bilateral pleural effusions noted wi th basilar atelectasis. IMPRESSION:1.Unremarkable CT angiogram of the aorta and iliac vessels. No findings for inflow disease with atherosclerotic hector que noted.2.Extensive severe atherosclerosis of the femoral-popliteal arteries a nd arteries of the bilateral calves. Diagnostic PVD evaluation for stenosis is s everely limited given the contrast bolus timing as well as degree of calcificati on. If there is concern for significant disease, ultrasound or MRI with MR angio graphy could be performed for further characterization, at least moderate diseas e suspected but not well characterized. Catheter angiography could be performed in follow-up alternatively.3.Asymmetric soft tissue edema throughout the left lo wer extremity.4.Status post amputation of the right fifth foot at the fifth meta tarsal mid shaft level. 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 Left diverting colostomy and multiple other f indings as described. Please see report.*[id number] MethodistSurgical pathology [id number] 13:27:23* Test Item Value Reference Range Interpretation Comments Case number (test code = 8345143) [id number] Surgical pathology report (test code = 2255) See link below for PDF Lab Report Result status (test code = 8647988) This is Final Report for [id number] [place] MethodistVancomycin level, [id number] 00:18:38* Test Item Value Reference Range Interpretation Comments Vancomycin, trough (test code = 42429-3) 13.0 ug/mL 10-20 Therapeutic Ranges: Peak 30.0 - 40.0 ug/mL Trough 10.0 - 20.0 ug/mL Carlos CkrwsyoygFdfexx7949-05-64 14:03:28Becca Mancilla NP 11/23/2019 2:04 PMAirwayPerformed by: Becca Mancilla NPAuthorized by: Nic Yun MD Location: ORUrgency: ElectiveDifficult Airway: No Anesthesiologist: Nic Yun MDResident/RN HOSPICE/AA: Becca Mancilla NPPerformed by: resident/RN HOSPICE/AAPreoxygenated with 100% O2: Yes Mask Ventilation: Easy maskFinal Airway Type: Endotracheal airwayFinal Endotracheal Airway: ETTCuffed: Yes Technique Used: Direct laryngoscopyDevices/Methods Used in Placement: Intubating stylet and cricoid pressureInsertion Site: OralBlade Type: MillerLaryngoscope Blade/Videolaryngoscope Blade Size: 2ETT Size (mm): 8.0Cuff at minimum occlusion pressure: Yes Measured from: LipsETT to Lips (cm): 24Placement Verified by: CO2 detection and direct visualization Laryngoscopic view: Grade IIb - view of arytenoids or posterior of glottis onlyRapid Sequence Induction (RSI): No Modified RSI: No Number of Attempts at Approach: 1 Patient's bed due to pain. Atraumatic.Carlos Morris culture, aerobic & [id number] 17:03:06* Test Item Value Reference Range Interpretation Comments Blood culture isolate (test code = 600-7) No growth after 5 days of incubation. Specimen InformationSpecimen Source: BloodSpecimen Site: Unspecified Carlos MerrittCczuhsljxEnggvv2291-28-32 08:26:46FrChidi ingram MD 11/21/2019 8:26 AMAirwayPerformed by: Chidi Saldaña MDAuthorized by: Chidi Saldaña MD Location: ORUrgency: ElectiveDifficult Airway: No Anesthesiologist: Chidi Saldaña MDPerformed by: anesthesiologistPreoxygenated with 100% O2: Yes Mask Ventilation: Not attemptedFinal Airway Type: Supraglottic airwayFinal LMA: UniqueLMA Size: 5Number of Attempts at Approach: 1[facility] MethodistCT Pelvis W Contrast 2019-11-19 22:59:35Hm Interface, Radiology Results 11/19/2019 11:02 PM CDTEXAMINATION: CT PELVIS W CONTRASTCLINICAL HISTORY: r o sacral osteomyelitisTECHNIQUE:Multiple axial images of the pelvis were obtained following intravenous administration of iodinated contrast. Sagittal and coronal computerized reformatted images were also obtained. CT imaging was performed with iterative reconstruction techniques and/or automated exposure control to reduce radiation dose.COMPARISON: Sacrum-coccyx radiograph 11/18/2019FINDINGS:Sacral decubitus ulceration predominantly along the gluteal cleft [...] bilateral gluteus betsey medial slips of the coccyx.Pelvic g irdle muscle bulk is relatively symmetric. Sciatic nerves are normal along their visualized course. Bilateral fat-containing inguinal hernias.Urinary bladder is distended with wall thickening. Prostate is prominent measuring up to 6.1 cm.Mi ld stool burden within the left hemicolon compatible with constipation. Scattere d colonic diverticulosis without diverticulitis. Prominent presacral fat strandi ng. No free intraperitoneal air or free fluid. Desiccation scattered about the p elvic vasculature. Prominent inguinal lymph nodes.Subcutaneous gas abuts the jorgito cyx without discrete erosions or periostitis to suggest osteomyelitis. MRI can b joni evaluate for early osteomyelitis. No acute fracture. Multilevel thoracolum bar degenerative disc disease and facet osteoarthritis. Femoral heads are seated well within the acetabula with mild bilateral hip joint osteoarthritis. Promine nt heterotopic ossification about the acetabula, trochanters and iliac crests ca n be seen with diffuse idiopathic skeletal hyperostosisIMPRESSION:Sacral decubit us ulceration with adjacent soft tissue gas extending to the coccyx. No discrete abscess formation.No CT evidence for acute osteomyelitis.Suspected anal fistula with seton drain in place.Distended urinary bladder with wall thickening may re present cystitis versus chronic urinary bladder outlet obstruction, correlate wi th urinalysis.Other findings as described above.[facility]-[id number] Restorationist Transthoracic Echocardiogram Complete, (w Contrast, Strain and 3D if needed) 2019-11-19 10:41:53* Test Item Value Reference Range Interpretation Comments Velocity Ratio (V1/V2) (test code = 4689) 0.33 m/s IVS,d (test code = 1906063594) 1.23 cm Ao root annulus (test code = 3496683831) 3.47 cm EF (test code = 0271945207) 55.22 % LVPWD,d (test code = 3460594484) 1.19 cm AoV Mean PG (test code = 5681356476) 12.05 mmHg AV LVOT peak gradient (test code = 7831246113) 3.03 mmHg MV valve area p 1/2 method (test code = 2910264433) 5.91 cm2 E/A ratio (test code = 8578107216) 0.70 E wave decelartion time (test code = 2604315932) 135.10 msec LVOT Diam,S (test code = 2874279757) 2.36 cm LVOT area (test code = 2796816946) 4.37 cm2 LVOT Vmax (test code = 4639795293) 0.87 m/s LVOT VTI (test code = 8706007905) 0.17 m AoV Peak PG (test code = 2571079432) 27.45 mmHg MV Peak E Catalino (test code = 3885400285) 0.76 m/s MV stenosis pressure 1/2 time (test code = 6390777047) 37.22 ms MV Peak A Catalino (test code = 4274466594) 1.08 m/s LV Vol,s A2C (test code = 5844000789) 38.12 mL LV Vol,d A2C (test code = 8145605267) 76.02 mL AoV Area, Vmax (test code = 3228322731) 1.72 cm2 AoV Area, VTI (test code = 8595990157) 1.88 cm2 AoV Vmax (test code = 9043356666) 2.62 m/s LV,d (test code = 4497665000) 4.57 cm LV,s (test code = 7571532146) 3.26 cm LV Vol,d A4C (test code = 2872574041) 57.69 ml LV Vol,s A4C (test code = 5767361381) 24.32 ml RVSP (TR) (test code = 8096237933) 25.74 mmHg TR Vpeak (test code = 4609458522) 2.48 mm/s MV E A ratio (test code = 7089292615) 0.70 RA pressure (test code = 1576606596) 5.00 mmHg TR pk grad (test code = 0436469193) 21.36 mmHg RVSP (test code = 0010883007) 25.74 mmHg LV SYS VOL (test code = 4841140004) 42.99 ml LV AVILA VOL (test code = 2405601701) 96.01 ml LA diam s (test code = 0446439235) 2.80 cm LV SV Teich 2D (test code = 7956348145) 53.02 ml LVOT SI (test code = 2670077207) 32.23 ml/m2 AoV Cusp sep (test code = 2723437483) 1.18 Aortic Root (test code = 9744093653) 3.50 cm AoV Vmn (test code = 5139268535) 1.70 IVS s 2D (test code = 3002093576) 1.73 LA Ao Ratio Mmode (test code = 6279309360) 0.80 D E excurs (test code = 2871023035) 1.40 E f slope (test code = 0676224414) 0.04 E prime lat (test code = 0821695030) 0.10 E louann sept (test code = 6303947331) 0.08 PV acc T slope (test code = 4798033524) 9.20 PV AT (test code = 1895991248) 93.43 msec SESAY BP EF (test code = 0605882325) 58.00 % AoV VTI (test code = 5982534195) 0.40 m LV EF,A2C (test code = 1783213462) 49.85 % LV EF,A4C (test code = 0613389754) 57.84 % LV EF,BP (test code = 4960613450) 57.58 % Scout Hanna,d A2C (test code = 1696530981) 7.38 cm Scout Hanna,d A4C (test code = 4552269845) 8.44 cm Scout Hanna,s A2C (test code = 7649919788) 7.20 cm Scout Hanna,s A4C (test code = 7387380899) 7.40 cm LV SV,A2C (test code = 0264154365) 37.89 % LV SV,A4C (test code = 6266820821) 33.37 % LV Vol,d BP (test code = 2691138965) 70.53 ml LV Vol,s BP (test code = 5178217553) 29.92 nl LVOT Vmn (test code = 0799201065) 0.63 Pt Size (test code = 1695393379) 185.42 Pt Wt (test code = 9855379103) 108.86 LVOT mean grad (test code = 9135380907) 1.79 mmHg LVPW s PLAX (test code = 5903857416) 1.58 cm MV Decel slope (test code = 6766018324) 5.65 m/s2 KEVIN (test code = KEVIN) The left ventricular hayder florin size is normal. Left ventricular systolic function is borderline reduced. EF 50% There is mild left ventricular concentric hypertrophy. Abnormal (paradoxical) motion consistent with RV pacemaker. Apical hypokinesis Normal right ventricular size and global function. A pacer/ICD is visualized in the right ventricle. Echo density is present on the pacing wire likely fibrinous material The mitral valve appears thickened. Mild aortic valve stenosis . Unable to assess diastolic filling. Mild tricuspid valve regurgitation. No evidence of tricuspid valve stenosis. Normal pulmonary artery systolic pressure. RA pressure is normal. No evidence of pulmonary hypertension present. RVSP is 25 mmHg. Carlos AbramsPv physiologic arterial lower extremity complete w melina 2019-11-18 15:57:04* Test Item Value Reference Range Interpretation Comments Left arm BP (test code = 7618444324) 116 mmHg Right arm BP (test code = 3277384521) 116 mmHg Left posterior tibial (test code = 1555923997) 255 mmHg Right posterior tibial (test code = 9528199922) 255 mmHg Left toe pressure (test code = 3582256107) 41 mmHg Right toe pressure (test code = 7939470285) 31 mmHg Left Dorsal Pedis BP (test code = 57081025764) 255 mmHg Right Dorsal Pedis (test code = 026710787410) 255 mmHg Left TBI (test code = 2198194886) 0.35 Right TBI (test code = 0009315501) 0.27 KEVIN (test code = KEVIN) Bilateral lower extremity ph ysiologic study with segmental waveforms 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 There is also evidence of femoral and tibial artery disease on the left.Ankle-brachial indices cannot be calculated due to calcified noncompressible arteries. (Clinical correlation)Toe brachial indices suggest moderate to severe distal perfusion deficit. Carlos AbramsXR Foot 3+ Vw [id number] 14:04:39Hm Interface, Radiology Results 11/18/2019 2:07 PM CDTEXAMINATION: XR FOOT 3 VW RIGHTCLINICAL HISTORY: Osteomyelitis suspected foot swelling yvette beticCOMPARISON: None availableFINDINGS: 1. Approximately age and gender appropr iate mineralization of the osseous structures. 2. Adequate nonweightbearing alig nment of the right foot without acute fracture. Status post fifth metatarsal amp utation. Suspected soft tissue defect along the distal soft tissues of the great toe with focal dictation of the distal phalanx concerning for acute osteomyelit is.3. Moderate hallux metatarsophalangeal joint osteoarthritis. Mild midfoot ost eoarthritis. Enthesophyte formation at the Achilles insertion with tendinosis an d a moderate sized plantar calcaneal spur 4. Diffuse diabetic type vascular calc ifications. IMPRESSION: Findings concerning for acute osteomyelitis of the dista l phalanx of the great toe, clinical correlation and advanced imaging may be ind icated.[id number] Carlos MethodistXR Sacrum And Gtbgos5787-35-37 13:49:33Hm Interface, Radiology Results 11/18/2019 1:52 PM CDTStudy:XR SACRUM AND COCCYXHistory:Infection and inflammatory reaction due to other nervous sys tem device implant or graftCOMPARISON:None.IMPRESSION:3 views of the sacrum. Bi lateral SI joints appear patent. No acute fracture or erosions. The sacrum and c occyx are in anatomic alignment. No acute fracture. Pelvic phleboliths present.H [id number] Carlos AbramsIdkcfwhzeEaodbqto4153-06-24 20:40:49* Test Item Value Reference Range Interpretation Comments Troponin (test code = 33643-2) 0.006 ng/mL 0-0.04 In patients suspected of having a myocardial infarction, along with all other appropriate clinical measures and actions including ECG and other diagnostics as appropriate, measure Ultra TnI at 0 hrs and at 3 hrs.Myocardial infarction VERY LIKELYThe 0 hr TnI level is > 0.10 ng/mL Reuben cardial infarction LIKELYThe 0 hr TnI level is > 0.04 ng/mL and 3 hr level is increased or decreased by at least 0.020 ng/mL Myocardi al infarction VERY UNLIKELYBoth the 0 hr and 3 hr TnI levels <= 0.04 ng/mL(within normal limits) OR 0 hr is > 0.04 ng/mL and 3 hr is increased OR decreased by less than 0.020 ng/mL [place] MethodistLactic acid level, SEPSIS - Now and repeat 2x every 3 hours 2019-11-17 20:30:50* Test Item Value Reference Range Interpretation Comments Lactic acid (test code = 53027-1) 2.3 mmol/L 0.5-2.2 H Lab Interpretation (test code = 25861-8) Abnormal [place] MethodistVenous blood hkq8001-25-22 15:06:15* Test Item Value Reference Range Interpretation Comments pH, venous (test code = 2746-6) 7.36 7.32-7.42 pCO2, venous (test code = 2021-4) 53 45- 51 mmHg H pO2, venous (test code = 2705-2) 19 25- 40 mmHg L Base excess, venous (test code = 1927-3) 4 meq/L -2-2 H O2 saturation, venous (test code = 2711-0) 27 % 40-70 L Bicarbonate, venous (test code = 84848-0) 28.1 mmol/L 21-28 H FiO2, inspired O2% (test code = 1389) Unknown % Lab Interpretation (test code = 16415-4) Abnormal [place] MethodistB natriuretic klvmqgr9277-96-41 15:05:12* Test Item Value Reference Range Interpretation Comments BNP (test code = 05554-4) 74 pg/mL 0-100 [facility] ED Preliminary Interpretation - Not an Sojng0473-72-23 14:43:51* Test Item Value Reference Range Interpretation Comments KEVIN (test code = KEVIN) Ben Goel Jr., MD 11/18/2019 3:32 [facility] ED Preliminary Interpretation - Not an OrderPerformed by: Ben Goel Jr., KIANAuthorized by: Ben Goel Jr., MD ECG reviewed by ED Physician in the absence of a manager paid: yes Interpretation: Interpretation: abnormal Rate: ECG rate: 100 ECG rate assessment: normal Rhythm: Rhythm: sinus rhythm and paced Pacing: Type of pacing: VentricularQRS: QRS axis: Normal QRS intervals: Normal Lab Interpretation (test code = 04234-4) Abnormal Gonzalez MethodistUS GUIDANCE FOR VASCULAR [id number] 15:59:00 [facility] [address] [address] Patient Name: SHAHRIAR LEAL MR #: [id number] : 1940 Age/Sex: 78/M Req #: [id number] Adm Physician: SHERIDAN MAHONEY MD Ordered by: HONG NEWSOME MD Report #: [id number] Location: [facility] Room/Bed: [place] [address] Procedure: [id number] US/US GUIDANCE FOR VASCULAR ACCES Exam Date: 09/19/19 Exam Time: 03 06 REPORT STATUS: Signed PROCEDU RE: Non-tunneled central venous catheter placement Procedural Personnel A ttending physician(s): Sunny Fellow physician(s): None Resident physician(s): None Advanced practice provider(s): None Pre-procedure diagnosis: Poor ve nous access Post-procedure diagnosis: Same Indication: Administration of int ravenous medications Additional clinical history: None Complications: No immediate complications. IMPRESSION: Insertion of right-sided non-tunn eled triple-lumen temporary central venous catheter. PROCEDURE SUMMARY: - Venous a ccess with ultrasound guidance - Non-tunneled central venous catheter insertio n - Additional procedure(s): None PROCEDURE DETAILS: Pre-procedure Consent: Informed consent for the procedure including risks, benefits and alt ernatives was obtained and time-out was performed prior to the procedure. Prep aration (MIPS): The site was prepared and draped using all elements of maximal sterile barrier technique including sterile gloves, sterile gown, cap, mask, large sterile sheet, sterile ultrasound probe cover, hand hygiene and cutaneou s antisepsis with 2% chlorhexidine. Medical reason for site preparation excep tion (MIPS): Not applicable Anesthesia/sedation Level of anesthesia/sedat ion: No sedation Access Local anesthesia was administered. The vessel was sonographically evaluated and determined to be patent. Real time ultrasound w as used to visualize needle entry into the vessel and a permanent image was st ored. Vein accessed: Internal jugular vein Access technique: Micropuncture s et with 21 gauge needle Catheter placement The access site was dilated an d the catheter was placed into the vein over a wire. A sterile dressing was ap plied. Catheter placed: Axis Three Catheter size (Scottish): 7 Catheter length (cm ): 16 Catheter flush: Heparin (1000 units/mL) Catheter securement technique: Non-absorbable suture Contrast Contrast agent: None Radiation Dose None Additional Details Additional description of procedure: None Equ ipment details: None Specimens removed: None Estimated blood loss (mL): Less than 10 Standardized report: [email or web address]_NonTunneledCatheter_v3 Attestation Signer name: Lulu Dominguez MD I attest that I was present for the entire proce dure. I reviewed the stored images and agree with the report as written. Signed by: Lulu Dominguez MD on 09/27/2019 4:01 PM Dictated By: LULU DOMINGUEZ MD 1601 Transcribed By: MERCEDES TIPTON on 09/27/19 1601 COPY TO: HONG NEWSOME MD Blood leukocytes automated count (number/volume)2019-09-24 08:30:00* Test Item Value Reference Range Interpretation Comments White Blood Count (test code = 6690-2) 9.75 4.8-10.8 [facility] erythrocytes automated count (number/volume)2019-09-24 08:30:00* Test Item Value Reference Range Interpretation Comments Red Blood Count (test code = 789-8) 3.09 4.3-5.7 [facility] HospitalBlood hemoglobin measurement (moles/volume)2019-09-24 08:30:00* Test Item Value Reference Range Interpretation Comments Hemoglobin (test code = 96024-7) 9.0 14.0-18.0 [facility] HospitalAutomated blood hematocrit (volume fraction)2019-09-24 08:30:00* Test Item Value Reference Range Interpretation Comments Hematocrit (test code = 4544-3) 28.5 38.2-49.6 [facility] HospitalAutomated erythrocyte mean corpuscular unkqsh7613-45-64 08:30:00* Test Item Value Reference Range Interpretation Comments Mean Corpuscular Volume (test code = 787-2) 92.2 81-99 [facility] HospitalAutomated erythrocyte mean corpuscular hemoglobin (mass per erythrocyte)2019-09-24 08:30:00* Test Item Value Reference Range Interpretation Comments Mean Corpuscular Hemoglobin (test code = 785-6) 29.1 28-32 [facility] HospitalAutcounts include [facility] mean corpuscular hemoglobin concentration measurement (mass/volume)2019-09-24 08:30:00* Test Item Value Reference Range Interpretation Comments Mean Corpuscular Hemoglobin Concent (test code = 786-4) 31.6 31-35 [facility] HospitalRDW XozBc-Isb3254-24-26 08:30:00* Test Item Value Reference Range Interpretation Comments Red Cell Distribution Width (test code = 41257-8) 14.5 11.7 -14.4 [facility] HospitalAutcounts include [facility] blood platelet count (count/volume)2019-09-24 08:30:00* Test Item Value Reference Range Interpretation Comments Platelet Count (test code = 777-3) 244 140-360 [facility] HospitalAutomated blood segmented neutrophil count as percentage of total tocquxgywl9190-57-66 08:30:00* Test Item Value Reference Range Interpretation Comments Neutrophils (%) (Auto) (test code = 00026-1) 53.1 38.7-80.0 [facility] HospitalAutomated blood lymphocyte count as percentage ot total tsmihdxuhu8988-26-50 08:30:00* Test Item Value Reference Range Interpretation Comments Lymphocytes (%) (Auto) (test code = 736-9) 29.0 18.0-39.1 [facility] HospitalAutomated blood monocyte count as percentage of total nozivnrnts8994-37-13 08:30:00* Test Item Value Reference Range Interpretation Comments Monocytes (%) (Auto) (test code = 5905-5) 11.8 4.4-11.3 [facility] HospitalAutomated blood eosinophil count as percentage of total uyuxsomsak1334-47-40 08:30:00* Test Item Value Reference Range Interpretation Comments Eosinophils (%) (Auto) (test code = 713-8) 0.6 0.0-6.0 [facility] HospitalAutomated blood basophil count as percentage of total cyeppawvft4601-78-31 08:30:00* Test Item Value Reference Range Interpretation Comments Basophils (%) (Auto) (test code = 706-2) 0.5 0.0-1.0 [facility] HospitalFluoroscopic procedure less than one hour gywcqosd5774-55-20 08:30:00* Test Item Value Reference Range Interpretation Comments IM GRANULOCYTES % (test code = IM GRANULOCYTES %) 5.0 0.0- 1.0 [facility] HospitalAutomated blood neutrophil count 2019-09-24 08:30:00* Test Item Value Reference Range Interpretation Comments Neutrophils # (Auto) (test code = 751-8) 5.2 2.1-6.9 [facility] HospitalBlood lymphocytes count (number/volume) 2019-09-24 08:30:00* Test Item Value Reference Range Interpretation Comments Lymphocytes # (Auto) (test code = 93192-0) 2.8 1.0-3.2 [facility] HospitalBlood monocytes automated count (number/volume)2019-09-24 08:30:00* Test Item Value Reference Range Interpretation Comments Monocytes # (Auto) (test code = 742-7) 1.2 0.2-0.8 [facility] HospitalAutomated blood eosinophil count 2019-09-24 08:30:00* Test Item Value Reference Range Interpretation Comments Eosinophils # (Auto) (test code = 711-2) 0.1 0.0-0.4 [facility] HospitalAutomated blood basophil count (count/volume)2019-09-24 08:30:00* Test Item Value Reference Range Interpretation Comments Basophils # (Auto) (test code = 704-7) 0.1 0.0-0.1 [facility] HospitalFluoroscopic procedure less than one hour spnrzeoa3944-02-76 08:30:00* Test Item Value Reference Range Interpretation Comments Absolute Immature Granulocyte (auto (jordon t code = Absolute Immature Granulocyte (auto) 0.49 0-0.1 [facility]um or plasma sodium measurement (moles/volume)2019-09-24 08:30:00* Test Item Value Reference Range Interpretation Comments Sodium Level (test code = 2951-2) 139 136-145 [facility] Texaserum or plasma potassium measurement (moles/volume)2019-09-24 08:30:00* Test Item Value Reference Range Interpretation Comments Potassium Level (test code = 2823-3) 3.6 3.5-5.1 [facility] Texaserum or plasma chloride measurement (moles/volume)2019-09-24 08:30:00* Test Item Value Reference Range Interpretation Comments Chloride Level (test code = 2075-0) 105 98-107 [facility] Texaserum or plasma carbon dioxide, total measurement (moles/volume)2019-09-24 08:30:00* Test Item Value Reference Range Interpretation Comments Carbon Dioxide Level (test code = 2028-9) 27 22-29 [facility] Texaserum or plasma anion qit0991-44-37 08:30:00* Test Item Value Reference Range Interpretation Comments Anion Gap (test code = 00105-0) 10.6 8-16 [facility] Texaserum or plasma urea nitrogen measurement (mass/volume)2019-09-24 08:30:00* Test Item Value Reference Range Interpretation Comments Blood Urea Nitrogen (test code = 3094-0) 7 7-26 [facility] Texaserum or plasma creatinine measurement (mass/volume)2019-09-24 08:30:00* Test Item Value Reference Range Interpretation Comments Creatinine (test code = 2160-0) 0.90 0.72-1.25 [facility] Texaserum or plasma urea nitrogen/creatinine mass vugik8626-93-69 08:30:00* Test Item Value Reference Range Interpretation Comments BUN/Creatinine Ratio (test code = 3097-3) 8 6-25 [facility] HospitalEstimated glomerular filtration rate (GFR) falzfjhwoexpb3380-56-03 08:30:00* Test Item Value Reference Range Interpretation Comments Estimat Glomerular Filtration Rate (test code = 940555243) > 60 >60 Ranges were taken from the National Kidney Disease Education Program and the [facility] literature.Reference ranges:60 or greater: Nhyjpo45-86 ( for 3 consecutive months): Chronic kidney disease 15 or less: Kidney failureMemorial Hermann Sugar Land HospitalGlucose sbqvcxxljnu2161-48-07 08:30:00* Test Item Value Reference Range Interpretation Comments Glucose Level (test code = QMD3018) 118 74-118 [facility] Texaserum or plasma calcium measurement (mass/volume)2019-09-24 08:30:00* Test Item Value Reference Range Interpretation Comments Calcium Level (test code = 56965-5) 7.9 8.4-10.2 [facility] Texaserum or plasma total bilirubin measurement (mass/volume)2019-09-24 08:30:00* Test Item Value Reference Range Interpretation Comments Total Bilirubin (test code = 1975-2) 0.3 0.2-1.2 [facility] HospitalFluoroscopic procedure less than one hour vxfkqzov2894-69-69 08:30:00* Test Item Value Reference Range Interpretation Comments Aspartate Amino Transf (AST/SGOT) (test code = Aspartate Amino Transf (AST/SGOT)) 47 5-34 [facility] Texaserum or plasma alanine aminotransferase measurement (enzymatic activity/volume)2019-09-24 08:30:00* Test Item Value Reference Range Interpretation Comments Alanine Aminotransferase (ALT/SGPT) (test code = 1742-6) 58 0-55 [facility] Texaserum or plasma protein measurement (mass/volume)2019-09-24 08:30:00* Test Item Value Reference Range Interpretation Comments Total Protein (test code = 2885-2) 6.2 6.5-8.1 [facility] Texaserum or plasma albumin measurement (mass/volume)2019-09-24 08:30:00* Test Item Value Reference Range Interpretation Comments Albumin (test code = 1751-7) 2.5 3.5-5.0 [facility] HospitalPlasma globulin measurement (mass/volume) 2019-09-24 08:30:00* Test Item Value Reference Range Interpretation Comments Globulin (test code = 21117-7) 3.7 2.3-3.5 [facility] Texaserum or plasma albumin/globulin mass exqlv1527-23-48 08:30:00* Test Item Value Reference Range Interpretation Comments Albumin/Globulin Ratio (test code = 1759-0) 0.7 0.8-2.0 [facility]erum or plasma alkaline phosphatase measurement (enzymatic activity/volume)2019-09-24 08:30:00* Test Item Value Reference Range Interpretation Comments Alkaline Phosphatase (test code = 6768-6) 60 40-150 [facility] HospitalCapillary blood glucose measurement by glucometer (mass/volume)2019-09-24 08:22:00* Test Item Value Reference Range Interpretation Comments Bedside Glucose (test code = 72935-5) 129 70-120 Meter ID: [id number] Hermann Sugar Land HospitalActivated partial thromboplastin time (aPTT) in platelet poor plasma by coagulation assay 2019-09-23 09:00:00* Test Item Value Reference Range Interpretation Comments Activated Partial Thromboplast Time (test code = 17154-6) 32.6 23.8-35.5 [facility] HospitalCHEST SINGLE (PORTABLE)2019-09-21 07:06:00 [facility] [address] [place] [address] Patient Name: SHAHRIAR LEAL MR #: [id number] : 1940 Age/Sex: 78/M Req #: [id number] Adm Physician: SHERIDAN MAHONEY MD Ordered by: DORIAN BECKMAN MD Report #: [id number] Location: [facility] Room/Bed: [place] [address] Procedure: [id number] DX/CHEST SINGLE ( PORTABLE) Exam Date: 09/21/19 Exam Time: 629 REPORT STATUS: Signed Examination: Sin gle AP view of the chest. COMPARISON: AP chest 09/19/2019 INDICATION: S crotal cellulitis, CHF IMPRESSION: 1. Lines and Tubes: Stable le ft upper chest multilead cardiac device. Stable right central line. 2. Lung s are grossly clear. No consolidation or effusion. 3. Cardiomediastinal silh ouette is normal. Pulmonary vasculature is normal. 4. No acute bony abnorma lities. Signed by: Dr. Ben Kong M.D. on 09/21/2019 7:07 AM Dictated By: BEN KONG MD 6 COPY TO: JOEL BECKMAN MD RENAL RETROPERITONEAL XCJB8537-26-21 17:28:[address] [address] Patient Name: SHAHRIAR LEAL MR #: [id number] : 1940 Age/Sex: 78/M Req #: [id number] Adm Physician: SHERIDAN MAHONEY MD Ordered by: HARINDER MIRZA MD Report #: [id number] Location: [facility] Room/Bed: [place] [address] Procedure: [id number] US/US RENAL RETROP ERITONEAL COMP Exam Date: 09/20/19 Exam Time: 1612 REPORT STATUS: Signed EXAM: Renal Ultrasound INDICATION: COMPARISON: CT abdomen and pelvis dated 09/18/2019 TECHNIQUE: Transverse and longitudinal images of the kidneys and b ladder were obtained. FINDINGS: Right Kidney: Size: 1 3.0 cm Echogenicity: Normal Parenchymal thickness: Normal Collecting system: No hydronephrosis Stones: None Cyst/Mass: 1.7 x 1.1 x 1.7 cm and 1.9 x 1.4 x 1.5 cm simple cortical cysts are seen in the interpole Left Kidney: Size: 13.8 cm Echogenicity: Normal Parenchymal thickness: Normal Collecting system: No hydronephros is Stones: None Cyst/Mass: None Bladder: Normal no signifi cant post void residual volume noted. IMPRESSION: Simple right renal c ortical cysts as described. Signed by: Valerio Combs MD on 09/20/2019 5 :34 PM Dictated By: VALERIO COMBS MD 33 Transcribed By: TIANA on 09/20/191733 COPY TO: HARINDER MIRZA MD Fluoroscopic procedure less than one hour mdlpzgio8597-75-35 04:40:00* Test Item Value Reference Range Interpretation Comments Differential Total Cells Counted (test code = Differaixa tial Total Cells Counted) 100 [facility] blood neutrophils/100 leukocytes 2019-09-20 04:40:00* Test Item Value Reference Range Interpretation Comments Neutrophils % (Manual) (test code = 44227-4) 71 40-74 [facility] blood lymphocytes/100 leukocytes 2019-09-20 04:40:00* Test Item Value Reference Range Interpretation Comments Lymphocytes % (Manual) (test code = 737-7) 15 19-48 [facility] blood monocytes/100 leukocytes 2019-09-20 04:40:00* Test Item Value Reference Range Interpretation Comments Monocytes % (Manual) (test code = 744-3) 12 3.4-9.0 [facility] HospitalManual blood myelocytes/100 leukocytes 2019-09-20 04:40:00* Test Item Value Reference Range Interpretation Comments Myelocytes % (test code = 749-2) 2 0-0 [facility] HospitalBlood platelets count by estimate (number/volume)2019-09-20 04:40:00* Test Item Value Reference Range Interpretation Comments Platelet Estimate (test code = 87073-4) ADEQUATE [facility] HospitalPlatelet zvecjjjpyz6194-74-37 04:40:00* Test Item Value Reference Range Interpretation Comments Platelet Morphology Comment (test code = 02729-9) NORMAL [facility] HospitalRB zbfkbjdgqq1379-93-19 04:40:00* Test Item Value Reference Range Interpretation Comments Red Cell Morphology Comment (test code = 6742-1) NORMAL [facility]erum or plasma uric acid measurement (mass/volume)2019-09-20 04:40:00* Test Item Value Reference Range Interpretation Comments Uric Acid (test code = 3084-1) 6.3 4.8-8.0 [facility] Texaserum or plasma magnesium measurement (mass/volume)2019-09-20 04:40:00* Test Item Value Reference Range Interpretation Comments Magnesium Level (test code = 96517-7) 1.2 1.3-2.1 [facility] Texaserum or plasma triglyceride measurement (mass/volume)2019-09-20 04:40:00* Test Item Value Reference Range Interpretation Comments Triglycerides Level (test code = 2571-8) 175 0-149 [facility] Texaserum or plasma cholesterol measurement (mass/volume)2019-09-20 04:40:00* Test Item Value Reference Range Interpretation Comments Cholesterol Level (test code = 2093-3) 201 0-199 Less than 200 mg/dL Low Gjtq261 - 239 mg/dL Borderline Fmax435 m g/dl and greater High Risk [facility]um or plasma cholesterol in LDL measurement (mass/volume) 2019-09-20 04:40:00* Test Item Value Reference Range Interpretation Comments LDL Cholesterol (test code = 2089-1) 143 60-130 [facility] Texaserum or plasma cholesterol in HDL measurement (mass/volume)2019-09-20 04:40:00* Test Item Value Reference Range Interpretation Comments HDL Cholesterol (test code = 2085-9) 23 40-60 [facility] Texaserum or plasma total cholesterol/cholesterol in HDL mass pmwyq6264-15-73 04:40:00* Test Item Value Reference Range Interpretation Comments Cholesterol/HDL Ratio (test code = 9830-1) 8.7 3.9-4.7 [facility] HospitalBacterial urine iqmlydg6288-99-15 21:35:00* Test Item Value Reference Range Interpretation Comments Urine Culture (test code = 630-4) SHANA ALBICANS [facility] HospitalCHEST XRAY LINE OFIAVHBJY2230-96-52 13:38:00 [address] [address] Patient Name: SHAHRIAR LEAL MR #: [id number] : 1940 Age/Sex: 78/M Req #: [id number] Adm Physician: SHERIDAN MAHONEY MD Ordered by: DORIAN BECKMAN MD Report #: [id number] Location: ICU Room/Bed: [place] [address] Procedure: [id number] DX/CHEST XRAY JEFRY E PLACEMENT Exam Date: 09/19/19 Exam Time: 1300 REPORT STATUS: Signed EXAMINATION: CHEST X-RAY LINE PLACEMENT COMPARISON: Chest x-ray 12/29/2018 INDIC ATION: CENTRAL LINE DISCUSSION: Frontal view of the chest obtaine d at 1313 hours. Costophrenic angles are not included on the image. HEART AND MEDIASTINUM: The heart is mildly enlarged. There are calcifications thro ughout the aortic arch LINES: Right IJ catheter terminates in the SVC wi thout pneumothorax. Pacer/fibrillator wires terminate in the right atrium and right ventricle. LUNGS/PLEURA: Low lung volumes. Mild right basilar atelec tasis. No interstitial edema or vascular congestion. No large effusions. BONES AND SOFT TISSUES: No focal osseous lesion. The soft tissues are normal. IMPRESSION: Right IJ catheter terminates in the SVC without pneumothor ax. Low lung volumes and mild right basilar atelectasis. Signed by: Dr Ree Nava MD on 09/19/2019 1:39 PM Dictated By: XANDER SHANKS MD [address] By: TIANA on 09/19/191338 COPY TO: DORIAN BECKMAN MD Prothrombin time (PT) in platelet poor plasma by coagulation [id number] 11:40:00* Test Item Value Reference Range Interpretation Comments Prothrombin Time (test code = 5902-2) 14.1 11.9-14.5 [facility]IN[facility] in Platelet poor plasma by Coagulation [id number] 11:40:00* Test Item Value Reference Range Interpretation Comments Prothromb Time International Ratio (test code = 6301-6) 1.03 Oral Anticoagulant Therapy INR Values:1. Low Intensity Therapy 1.5 - 2.02 . Moderate Intensity Therapy 2.0 - 3.03. High Intensity Therapy(1) 2.5 - 3. 54. High Intensity Therapy(2) 3.0 - 4.05. Panic Value INR > 5.0 [facility] HospitalFluoroscopic procedure less than one hour wexrjtdn5778-74-72 11:40:00* Test Item Value Reference Range Interpretation Comments Lactic Acid Level (test code = Lactic Acid Level) 1.7 0.5- 2.0 [facility] HospitalBNP Pyy-oIhf0908-11-21 11:40:00* Test Item Value Reference Range Interpretation Comments B-Type Natriuretic Peptide (test code = 40554-9) 18.4 0-100 [facility] Texas[facility]um or plasma creatine kinase measurement (enzymatic activity/volume)2019-09-19 11:40:00* Test Item Value Reference Range Interpretation Comments Creatine Kinase (test code = 2157-6) 51 30-200 [facility] Texaserum or plasma creatine kinase MB measurement (mass/volume)2019-09-19 11:40:00* Test Item Value Reference Range Interpretation Comments Creatine Kinase MB (test code = 47701-9) 0.50 0-5.0 [facility] HospitalTroponin I measurement by highly sensitive enzyme xdpjrlusyms7277-13-61 11:40:00* Test Item Value Reference Range Interpretation Comments Troponin I (test code = 24105-9) 0.007 0-0.300 [facility] HospitalBlood plnaltd9673-06-85 11:40:00* Test Item Value Reference Range Interpretation Comments Blood Culture (test code = 58973961) NO GROWTH AFTER 5 DAYS, FINAL REPORT [facility] HospitalFluoroscopic procedure less than one hour efhjvdzt1602-87-32 07:40:00* Test Item Value Reference Range Interpretation Comments Hemoglobin A1c Percent (test code = Hemoglobin A1c Percent) 8.0 4.0-7.0 [facility] HospitalFluoroscopic procedure less than one hour mxiokkew1802-32-41 22:58:00* Test Item Value Reference Range Interpretation Comments Coronavirus (PCR) (test code = Coronavirus (PCR)) NOT DETECTED NOTD ETECTED SARS-COV-2 (COVID19), HIGHRISK, RT-PCRNegative results do not preclude SARS-CoV- 2 infection and should not be used as the sole basis for patient management deci sions. Negative results must be combined with clinical observations, patient his tory, and epidemiological information. Optimum specimen types and timing for pea k viral levels during infections caused by SARS-CoV-2 have not been determined. Collection of multiple specimens ot types of specimens may be necessary to detec t virus. Improper specimen collection and handling, sequence variability under p rimers/probes, or organism present below the limit of detection may lead to fals e negative results. Positive and negative predictive values of testing are highl y dependent on prevalance. False negative test results are more likely when prev alence is high.The expected result is negative (not detected).The SARS-CoV-2 jordon t is intended for the qualitative detection of nucleic acid from SARS-CoV-2 in n asopharyngeal and oropharyngeal swab samples from patients who meet COVID-19 cli nical and or epidemiological criteria. For lower respiratory tract specimens, th e assay is submitted for authoriztion by FDA under an Emergency Use Authorizatio n (EUA). Testing methodology is real time RT-PCR. If received as separate collec tion devices, nasopharygeal and oropharyngeal specimens are combined for analysi s. Additional specimens may be split to a separate accession for analysi and rep orting as this test includes a single unit of service.Test results must be corre lated with clinical presentation and evaluated in the context of other laborator y and epidemiologic data. Test performance can be affected because the epidemiol ogy and clinical spectrum of infection caused by SARS-CoV-2 is not fully known. For example, the optimum types of specimens to collect and when during the cours e of infection these specimens are most likely to contain detectable viral RNA m ay not be known.This test has not been Food and Drug Administration (FDA) cleare d or approved and has been authorized by FDA under an Emergency Use Authorizatio n (EUA). The test is only authorized for the duration of the declaration that ci rcumstances exist justifying the authorization of emergency use of in vitro diag nostic tests for detection and/or diagnosis of SARS-CoV-2 under section 564(b) o f the Act, 21 U.S.C. section 360bbb-3(b)(1), unless the authorization is termina tati or revoked sooner. [facility] are certified under the C linical Laboratory Improvement Amendments of 1988 (CLIA), 42 U.S.C. section 263a , to perform high complexity tests.Testing performed by [facility] [id number] [place], [place] [phone] Director: Hal Ng M.D.CLIA # [id number] [facility]CT [facility]PELVIS [id number] 20:43:00 [place] [address] Patient Name: SHAHRIAR LEAL MR #: [id number] : 1940 Age/Sex: 78/M Req #: [id number] Adm Physician: Ordered by: GRACE HERRERA DO Report #: [id number] Location: ER Room/Bed: Procedure: CT/CT ABDOMEN/PE LVIS WO Exam Date: 09/18/19 Exam Time: 1999 REPORT STATUS: Signed EXAM: CT Abdomen a nd Pelvis WITHOUT contrast INDICATION: Scrotal emphysema COMPARISON: Abdominal CT 09/04/2018 TECHNIQUE: Abdomen and pelvis were scanned utilizing a multidetector helical scanner from the lung base to the pubic symphysis withou t administration of IV contrast. Absence of intravenous contrast decreases sen sitivity for detection of focal lesions and vascular pathology. Coronal and sa gittal reformations were obtained. Routine protocol was performed. IV CONTRAST: None ORAL CONTRAST: None COMPLICATIONS: None RADIATION DOSE: Total DLP: 1008 mGy*cm Estimated effective dos e: (DLP x 0.015 x size factor) mSv CTDIvol has been reviewed. It is below the limits set by the Radiation Protocol Committee (RPC). Dose modulat ion, iterative reconstruction, and/or weight based adjustment of the mA/kV was utilized to reduce the radiation dose to as low as reasonably achievable. FINDINGS: LINES and TUBES: Cardiac device leads terminating in the right atrium, right ventricle, and coronary sinus. LOWER THORAX: coronary artery calcifications. HEPATOBILIARY: No focal hepatic lesions. No b iliary ductal dilation. GALLBLADDER: No radio-opaque stones or sludge. No wall thickening. SPLEEN: No splenomegaly. PANCREAS: No focal masses or ductal dilatation. ADRENALS: No adrenal nodules KIDNEYS/URETE RS: No hydronephrosis. No cystic or solid mass lesions. No stones. Bilateral perinephric fat stranding. Small hypodensities too small to characterize, lik lilia benign. GI TRACT: No abnormal distention, wall thickening, or evidence of bowel obstruction. Appendix is normal. PELVIC ORGANS/BLADDER: Ci rcumferential urinary bladder wall thickening and perivesicular fat stranding. Prostatomegaly. LYMPH NODES: No lymphadenopathy. VESSELS: There is m oderate atherosclerotic disease in the aorta and major arterial branches. PERITONEUM / RETROPERITONEUM: Presacral fat stranding. No free air. BONES: There are degenerative changes in the spine, hips, and pelvis. Osseous demine ralization. SOFT TISSUES: There are fat containing inguinal hernias. IMPRESSION: Urinary bladder findings consistent with cystitis. Bilateral perinephric fat stranding can be due to renal insufficiency or senes cence, although pyelonephritis can generate this finding. Prostatomegaly . Chronic partial bladder outlet obstruction due to prostatomegaly can also be a cause for this patient's bladder wall thickening. Mild scrotal edema. Chronic findings as above. Signed by: Dalton Coleman DO on 09/18/2019 8:48 PM Dictated By: DALTON COLEMAN DO 47 Transcribed By: TIANA on 09/18/192047 COPY TO: GRACE HERRERA DO Fluoroscopic procedure less than one hour fncgpyzi8161-59-76 20:30:00* Test Item Value Reference Range Interpretation Comments Lactic Acid Level (test code = Lactic Acid Level) 1.6 0.5- 2.0 [facility] HospitalUrine color xpkunspufwssc9041-85-53 19:17:00* Test Item Value Reference Range Interpretation Comments Urine Color (test code = 5778-6) YELLOW YELLOW [facility] HospitalUrine jmlnnyu0443-69-22 19:17:00* Test Item Value Reference Range Interpretation Comments Urine Clarity (test code = 69848-6) SL CLOUDY CLEAR [facility] Texaspecific gravity of Urine by Test strip 2019-09-18 19:17:00* Test Item Value Reference Range Interpretation Comments Urine Specific [place] (test code = 5811-5) 1.020 1.010-1.02 5 [facility] HospitalUrine pH measurement by automated test [id number] 19:17:00* Test Item Value Reference Range Interpretation Comments Urine pH (test code = 00697-8) 5.5 5-7 [facility] HospitalUrine leukocyte esterase detection by tnwitnfx9364-72-57 19:17:00* Test Item Value Reference Range Interpretation Comments Urine Leukocyte Esterase (test code = 5799-2) LARGE NEGATIVE [facility] HospitalUrine nitrite xwdppcqlz0598-86-45 19:17:00* Test Item Value Reference Range Interpretation Comments Urine Nitrite (test code = 58071-0) POSITIVE NEGATIVE [facility] HospitalUrine protein measurement by test strip (mass/volume)2019-09-18 19:17:00* Test Item Value Reference Range Interpretation Comments Urine Protein (test code = 5804-0) 2+ NEGATIVE [facility] HospitalUrine glucose zzgqdkebl3178-22-70 19:17:00* Test Item Value Reference Range Interpretation Comments Urine Glucose (UA) (test code = 2349-9) 2+ NEGATIVE [facility] HospitalUrine ketones detection by automated test mfivn1842-70-72 19:17:00* Test Item Value Reference Range Interpretation Comments Urine Ketones (test code = 31752-5) 1+ NEGATIVE [facility] HospitalUrine urobilinogen measurement by test strip (mass/volume)2019-09-18 19:17:00* Test Item Value Reference Range Interpretation Comments Urine Urobilinogen (test code = 40037-9) 1 0.2-1 [facility] HospitalUrine total bilirubin measurement (mass/volume)2019-09-18 19:17:00* Test Item Value Reference Range Interpretation Comments Urine Bilirubin (test code = 1978-6) NEGATIVE NEGATIVE [facility] HospitalUrine erythrocytes vrhkrygib8721-53-91 19:17:00* Test Item Value Reference Range Interpretation Comments Urine Blood (test code = 83797-1) MODERATE NEGATIVE [facility] HospitalAutomated urine sediment leukocyte count by microscopy (number/high power field)2019-09-18 19:17:00* Test Item Value Reference Range Interpretation Comments Urine WBC (test code = 5821-4) >50 0-5 [facility] HospitalErythrocytes detection in urine sediment by light gxlnplawjl2669-53-49 19:17:00* Test Item Value Reference Range Interpretation Comments Urine RBC (test code = 48810-6) 21-50 0-5 [facility] HospitalBacteria detection in urine sediment by light vorsmmpwsf7136-65-99 19:17:00* Test Item Value Reference Range Interpretation Comments Urine Bacteria (test code = 74188-7) FEW NONE [facility] HospitalEpithelial cells detection in urine sediment by light baabsvtxpr8509-43-78 19:17:00* Test Item Value Reference Range Interpretation Comments Urine Epithelial Cells (test code = 62569-0) FEW NONE [facility] HospitalUrine color ikhedbzwbnboa1774-36-59 19:17:00* Test Item Value Reference Range Interpretation Comments Urine Color (test code = 5778-6) YELLOW YELLOW [facility] HospitalUrine ltcayib5730-75-52 19:17:00* Test Item Value Reference Range Interpretation Comments Urine Clarity (test code = 64924-3) SL CLOUDY CLEAR [facility] Texas[facility] gravity of Urine by Test strip 2019-09-18 19:17:00* Test Item Value Reference Range Interpretation Comments Urine Specific [place] (test code = 5811-5) 1.020 1.010-1.02 5 [facility] HospitalUrine pH measurement by automated test qrses8623-61-61 19:17:00* Test Item Value Reference Range Interpretation Comments Urine pH (test code = 36023-3) 5.5 5-7 [facility] HospitalUrine leukocyte esterase detection by cakzfpjl2920-18-80 19:17:00* Test Item Value Reference Range Interpretation Comments Urine Leukocyte Esterase (test code = 5799-2) LARGE NEGATIVE [facility] HospitalUrine nitrite fhzwoewii2957-33-30 19:17:00* Test Item Value Reference Range Interpretation Comments Urine Nitrite (test code = 11955-1) POSITIVE NEGATIVE [facility] HospitalUrine protein measurement by test strip (mass/volume)2019-09-18 19:17:00* Test Item Value Reference Range Interpretation Comments Urine Protein (test code = 5804-0) 2+ NEGATIVE [facility] HospitalUrine glucose apvvzehdx2282-54-59 19:17:00* Test Item Value Reference Range Interpretation Comments Urine Glucose (UA) (test code = 2349-9) 2+ NEGATIVE [facility] HospitalUrine ketones detection by automated test djoxw3024-02-14 19:17:00* Test Item Value Reference Range Interpretation Comments Urine Ketones (test code = 84753-0) 1+ NEGATIVE [facility] HospitalUrine urobilinogen measurement by test strip (mass/volume)2019-09-18 19:17:00* Test Item Value Reference Range Interpretation Comments Urine Urobilinogen (test code = 96464-6) 1 0.2-1 [facility] HospitalUrine total bilirubin measurement (mass/volume)2019-09-18 19:17:00* Test Item Value Reference Range Interpretation Comments Urine Bilirubin (test code = 1978-6) NEGATIVE NEGATIVE [facility] HospitalUrine erythrocytes udyiejkgq0190-05-00 19:17:00* Test Item Value Reference Range Interpretation Comments Urine Blood (test code = 59736-2) MODERATE NEGATIVE [facility] HospitalAutomated urine sediment leukocyte count by microscopy (number/high power field)2019-09-18 19:17:00* Test Item Value Reference Range Interpretation Comments Urine WBC (test code = 5821-4) >50 0-5 [facility] HospitalErythrocytes detection in urine sediment by light rzduqswnxp7978-32-89 19:17:00* Test Item Value Reference Range Interpretation Comments Urine RBC (test code = 50540-8) 21-50 0-5 [facility] HospitalBacteria detection in urine sediment by light wkkspzrkmh8645-85-38 19:17:00* Test Item Value Reference Range Interpretation Comments Urine Bacteria (test code = 16422-1) FEW NONE [facility] HospitalEpithelial cells detection in urine sediment by light qwmlajfjzx6533-19-18 19:17:00* Test Item Value Reference Range Interpretation Comments Urine Epithelial Cells (test code = 10109-3) FEW NONE [facility] HospitalBlood leukocytes automated count (number/volume)2019-09-18 18:52:00* Test Item Value Reference Range Interpretation Comments White Blood Count (test code = 6690-2) 16.32 4.8-10.8 [facility] HospitalBlood erythrocytes automated count (number/volume)2019-09-18 18:52:00* Test Item Value Reference Range Interpretation Comments Red Blood Count (test code = 789-8) 4.19 4.3-5.7 [facility]Bltr[facility] hemoglobin measurement (moles/volume)2019-09-18 18:52:00* Test Item Value Reference Range Interpretation Comments Hemoglobin (test code = 20422-1) 12.3 14.0-18.0 [facility] HospitalAutomated blood hematocrit (volume fraction)2019-09-18 18:52:00* Test Item Value Reference Range Interpretation Comments Hematocrit (test code = 4544-3) 37.3 38.2-49.6 [facility] HospitalAutomated erythrocyte mean corpuscular otoubf7644-78-63 18:52:00* Test Item Value Reference Range Interpretation Comments Mean Corpuscular Volume (test code = 787-2) 89.0 81-99 [facility] HospitalAutomated erythrocyte mean corpuscular hemoglobin (mass per erythrocyte)2019-09-18 18:52:00* Test Item Value Reference Range Interpretation Comments Mean Corpuscular Hemoglobin (test code = 785-6) 29.4 28-32 [facility] HospitalAutomated erythrocyte mean corpuscular hemoglobin concentration measurement (mass/volume)2019-09-18 18:52:00* Test Item Value Reference Range Interpretation Comments Mean Corpuscular Hemoglobin Concent (test code = 786-4) 33.0 31-35 [facility] HospitalRDW XxnEp-Fik0924-02-20 18:52:00* Test Item Value Reference Range Interpretation Comments Red Cell Distribution Width (test code = 53671-7) 14.2 11.7 -14.4 [facility] HospitalAutomated blood platelet count (count/volume)2019-09-18 18:52:00* Test Item Value Reference Range Interpretation Comments Platelet Count (test code = 777-3) 234 140-360 [facility] HospitalAutcounts include [facility] segmented neutrophil count as percentage of total dgjfqqtwjl3042-40-21 18:52:00* Test Item Value Reference Range Interpretation Comments Neutrophils (%) (Auto) (test code = 60408-5) 73.8 38.7-80.0 [facility] HospitalAutomated blood lymphocyte count as percentage ot total ohtdrfmzct8868-67-32 18:52:00* Test Item Value Reference Range Interpretation Comments Lymphocytes (%) (Auto) (test code = 736-9) 12.4 18.0-39.1 [facility] HospitalAutomated blood monocyte count as percentage of total xcrkcwybxg4910-66-89 18:52:00* Test Item Value Reference Range Interpretation Comments Monocytes (%) (Auto) (test code = 5905-5) 11.5 4.4-11.3 [facility] HospitalAutomated blood eosinophil count as percentage of total sndbfipnmh9340-86-82 18:52:00* Test Item Value Reference Range Interpretation Comments Eosinophils (%) (Auto) (test code = 713-8) 0.1 0.0-6.0 [facility] HospitalAutomated blood basophil count as percentage of total jofxazkgzs5218-01-40 18:52:00* Test Item Value Reference Range Interpretation Comments Basophils (%) (Auto) (test code = 706-2) 0.3 0.0-1.0 [facility] HospitalFluoroscopic procedure less than one hour mmnsrdhr7405-50-61 18:52:00* Test Item Value Reference Range Interpretation Comments IM GRANULOCYTES % (test code = IM GRANULOCYTES %) 1.9 0.0- 1.0 [facility] HospitalAutomated blood neutrophil count 2019-09-18 18:52:00* Test Item Value Reference Range Interpretation Comments Neutrophils # (Auto) (test code = 751-8) 12.0 2.1-6.9 [facility] HospitalBlood lymphocytes count (number/volume) 2019-09-18 18:52:00* Test Item Value Reference Range Interpretation Comments Lymphocytes # (Auto) (test code = 62647-1) 2.0 1.0-3.2 [facility] HospitalBltr[facility] center monocytes automated count (number/volume)2019-09-18 18:52:00* Test Item Value Reference Range Interpretation Comments Monocytes # (Auto) (test code = 742-7) 1.9 0.2-0.8 [facility] HospitalAutomated blood eosinophil count 2019-09-18 18:52:00* Test Item Value Reference Range Interpretation Comments Eosinophils # (Auto) (test code = 711-2) 0.0 0.0-0.4 [facility] HospitalAutomated blood basophil count (count/volume)2019-09-18 18:52:00* Test Item Value Reference Range Interpretation Comments Basophils # (Auto) (test code = 704-7) 0.1 0.0-0.1 [facility] HospitalFluoroscopic procedure less than one hour ayqjwmab3623-21-18 18:52:00* Test Item Value Reference Range Interpretation Comments Absolute Immature Granulocyte (auto (jordon t code = Absolute Immature Granulocyte (auto) 0.31 0-0.1 [facility] Texaserum or plasma sodium measurement (moles/volume)2019-09-18 18:52:00* Test Item Value Reference Range Interpretation Comments Sodium Level (test code = 2951-2) 133 136-145 [facility] Texaserum or plasma potassium measurement (moles/volume)2019-09-18 18:52:00* Test Item Value Reference Range Interpretation Comments Potassium Level (test code = 2823-3) 4.2 3.5-5.1 [facility] Texaserum or plasma chloride measurement (moles/volume)2019-09-18 18:52:00* Test Item Value Reference Range Interpretation Comments Chloride Level (test code = 2075-0) 92 98-107 [facility] Texaserum or plasma carbon dioxide, total measurement (moles/volume)2019-09-18 18:52:00* Test Item Value Reference Range Interpretation Comments Carbon Dioxide Level (test code = 2028-9) 29 22-29 [facility] Texaserum or plasma anion wcx4215-65-54 18:52:00* Test Item Value Reference Range Interpretation Comments Anion Gap (test code = 95257-0) 16.2 8-16 [facility] Texaserum or plasma urea nitrogen measurement (mass/volume)2019-09-18 18:52:00* Test Item Value Reference Range Interpretation Comments Blood Urea Nitrogen (test code = 3094-0) 15 7-26 [facility] Texaserum or plasma creatinine measurement (mass/volume)2019-09-18 18:52:00* Test Item Value Reference Range Interpretation Comments Creatinine (test code = 2160-0) 1.93 0.72-1.25 [facility] Texaserum or plasma urea nitrogen/creatinine mass kfyvt5171-53-50 18:52:00* Test Item Value Reference Range Interpretation Comments BUN/Creatinine Ratio (test code = 3097-3) 8 6- [facility] HospitalEstimated glomerular filtration rate (GFR) nbnqhjsdqxbln2431-04-05 18:52:00* Test Item Value Reference Range Interpretation Comments Estimat Glomerular Filtration Rate (test code = 453275682) 34 >60 Ranges were taken from the National Kidney Disease Education Program and the [facility] literature.Reference ranges:60 or greater: Zzjguz23-47 ( for 3 consecutive months): Chronic kidney disease 15 or less: Kidney failureMemorial Hermann Sugar Land HospitalGlucose dlwzivbmkeb0225-27-89 18:52:00* Test Item Value Reference Range Interpretation Comments Glucose Level (test code = GMI3778) 520 74-426 Results repeated and called to CHAYO MATOS at 1921 on 09/18/19 by Karlie Banuelos. Read ba ck and verified.[facility] Texaserum or plasma calcium measurement (mass/volume)2019-09-18 18:52:00* Test Item Value Reference Range Interpretation Comments Calcium Level (test code = 93524-1) 9.0 8.4-10.2 [facility] Texaserum or plasma total bilirubin measurement (mass/volume)2019-09-18 18:52:00* Test Item Value Reference Range Interpretation Comments Total Bilirubin (test code = 1975-2) 0.9 0.2-1.2 [facility] HospitalFluoroscopic procedure less than one hour lqaklizw0086-20-11 18:52:00* Test Item Value Reference Range Interpretation Comments Aspartate Amino Transf (AST/SGOT) (test code = Aspartate Amino Transf (AST/SGOT)) 21 5-34 [facility] Texaserum or plasma alanine aminotransferase measurement (enzymatic activity/volume)2019-09-18 18:52:00* Test Item Value Reference Range Interpretation Comments Alanine Aminotransferase (ALT/SGPT) (test code = 1742-6) 25 0-55 [facility] Texaserum or plasma protein measurement (mass/volume)2019-09-18 18:52:00* Test Item Value Reference Range Interpretation Comments Total Protein (test code = 2885-2) 8.4 6.5-8.1 [facility] Texaserum or plasma albumin measurement (mass/volume)2019-09-18 18:52:00* Test Item Value Reference Range Interpretation Comments Albumin (test code = 1751-7) 3.7 3.5-5.0 [facility] HospitalPlasma globulin measurement (mass/volume) 2019-09-18 18:52:00* Test Item Value Reference Range Interpretation Comments Globulin (test code = 27165-9) 4.7 2.3-3.5 [facility] Texaserum or plasma albumin/globulin mass [id number] 18:52:00* Test Item Value Reference Range Interpretation Comments Albumin/Globulin Ratio (test code = 1759-0) 0.8 0.8-2.0 [facility] Texaserum or plasma alkaline phosphatase measurement (enzymatic activity/volume)2019-09-18 18:52:00* Test Item Value Reference Range Interpretation Comments Alkaline Phosphatase (test code = 6768-6) 83 40-150 [facility] HospitalURINALYSIS [id number] 20:53:00* Test Item Value Reference Range Interpretation Comments UA COLOR (test code = COLU) YELLOW YELLOW UA APPEARANCE (test code = APPU) TURBID CLEAR A UA GLUCOSE DIPSTICK (test code = DGLUU) NEGATIVE mg/dL NEGATIVE UA BILIRUBIN DIPSTICK (test code = BILU) NEGATIVE mg/dL NEGATIVE UA KETONE DIPSTICK (test code = KETU) NEGATIVE mg/dL NEGATIVE UA SPECIFIC GRAVITY (test code = SGU) 1.012 1.001-1.035 UA BLOOD DIPSTICK (test code = ALPESH) 0.2 mg/dL (2+) mg/dL NEGATIVE A UA PH DIPSTICK (test code = ALVIN) 6.0 5.0-8.0 UA PROTEIN DIPSTICK (test code = PROU) 30 (1+) mg/dL NEGATIVE A UA UROBILINIOGEN DIPSTICK (test code = URO) Normal mg/dL NEGATIVE UA NITRITE DIPSTICK (test code = SUKHWINDER) NEGATIVE NEGATIVE UA LEUKOCYTE ESTERASE W REFLEX (test code = LEUUR) 500 Danette/u L (3+) Danette/uL NEGATIVE A UA WBC (test code = WBCU) >200 per HPF 0-5 A UA RBC (test code = RBCU) >200 #/HPF 0-5 UA WBC CLUMPS (test code = WBCUCL) >10 /HPF NONE A UA EPITHELIAL CELLS (test code = EPIU) None seen per HPF FEW UA BACTERIA (test code = BACU) FEW #/HPF NONE A Urine Source? Clean CatchCBC W/AUTO [id number] 19:41:00* Test Item Value Reference Range Interpretation Comments WHITE BLOOD CELL (test code = WBC) 12.8 K/mm3 4.5-12.5 H RED BLOOD CELL (test code = RBC) 4.93 mill/mm3 4.0-5.8 N HEMOGLOBIN (test code = HGB) 15.0 gram/dL 13.0-17.5 N HEMATOCRIT (test code = HCT) 45.1 % 42.0-52.0 N MEAN CELL VOLUME (test code = MCV) 91.5 fL 80-98 N MEAN CELL HGB (test code = MCH) 30.4 picogram 27.0-33.0 N MEAN CELL HGB CONCETRATION (test code = MCHC) 33.3 gram/dL 33.0-36. 0 N RED CELL DISTRIBUTION WIDTH (test code = RDW) 14.4 % 11.6-16. 2 N RED CELL DISTRIBUTION WIDTH SD (test code = RDW-SD) 48.1 fL 37 .0-51.0 N PLATELET COUNT (test code = PLT) 163 K/mm3 150-450 N MEAN PLATELET VOLUME (test code = MPV) 11.3 fL 6.7-11.0 H NEUTROPHIL % (test code = NT%) 77.1 % 39.0-69.0 H IMMATURE GRANULOCYTE % (test code = IG%) 0.9 % 0.0-5.0 N LYMPHOCYTE % (test code = LY%) 13.3 % 25.0-55.0 L MONOCYTE % (test code = MO%) 8.3 % 0.0-10.0 N EOSINOPHIL % (test code = EO%) 0.2 % 0.0-5.0 N BASOPHIL % (test code = BA%) 0.2 % 0.0-1.0 N NUCLEATED RBC % (test code = NRBC%) 0.0 % 0-0 N NEUTROPHIL # (test code = NT#) 9.87 K/mm3 1.8-7.7 H IMMATURE GRANULOCYTE # (test code = IG#) 0.11 x10 3/uL 0-0.03 H LYMPHOCYTE # (test code = LY#) 1.70 K/mm3 1.0-5.0 N MONOCYTE # (test code = MO#) 1.06 K/mm3 0-0.8 H EOSINOPHIL # (test code = EO#) 0.03 K/mm3 0.0-0.5 N BASOPHIL # (test code = BA#) 0.03 K/mm3 0.0-0.2 N NUCLEATED RBC # (test code = NRBC#) 0.00 K/mm3 0.0-0.1 N MANUAL DIFF REQUIRED (test code = MDIFF) NO BASIC METABOLIC [id number] 19:31:00* Test Item Value Reference Range Interpretation Comments SODIUM (test code = NA) 136 mmol/L 136-145 N POTASSIUM (test code = K) 4.4 mmol/L 3.5-5.1 N CHLORIDE (test code = CL) 99.0 mmol/L 98-107 N CARBON DIOXIDE (test code = CO2) 31.0 mmol/L 21-32 N ANION GAP (test code = GAP) 10.4 10-20 N GLUCOSE (test code = GLU) 100 mg/dL 74-106 N BLOOD UREA NITROGEN (test code = BUN) 18 mg/dL 7-18 N GLOMERULAR FILTRATION RATE (test code = GFR) 42 mL/min >=60 Estimated GFR by using Modified MDRD formula.Chronic kidney disease is defined as either kidney damageor GFR <60 mL/min/1.73 m2 for >3 months. CREATININE (test code = CREAT) 1.60 mg/dL 0.7-1.3 H BUN/CREATININE RATIO (test code = BUN/CREA) 11.3 10-20 N CALCIUM (test code = CA) 9.5 mg/dL 8.5-10.1 N HEPATIC FUNCTION [id number] 19:31:00* Test Item Value Reference Range Interpretation Comments TOTAL PROTEIN (test code = PROT) 9.2 gram/dL 6.4-8.2 H ALBUMIN (test code = ALB) 4.3 g/dL 3.4-5.0 N GLOBULIN (test code = GLOB) 4.9 gram/dL 2.7-4.2 H ALBUMIN/GLOBULIN RATIO (test code = A/G) 0.9 0.75-1.50 N BILIRUBIN TOTAL (test code = BILT) 0.50 mg/dL 0.0-1.0 N BILIRUBIN DIRECT (test code = BILD) 0.15 mg/dL 0.0-0.20 N SGOT/AST (test code = AST) 22 IUnit/L 15-37 N SGPT/ALT (test code = ALT) 25 IUnit/L 12-78 N ALKALINE PHOSPHATASE TOTAL (test code = ALKP) 78 IUnit/L 45-117 N Note change in reference range due to change in reagent. [id number] 19:31:00* Test Item Value Reference Range Interpretation Comments TROPONIN-I (test code = TROPI) <0.015 ng/mL 0-0.045 N BASIC METABOLIC [id number] 19:22:00* Test Item Value Reference Range Interpretation Comments SODIUM (test code = NA) 136 mmol/L 136-145 N POTASSIUM (test code = K) 4.4 mmol/L 3.5-5.1 N CHLORIDE (test code = CL) 99.0 mmol/L 98-107 N CARBON DIOXIDE (test code = CO2) mmol/L 21-32 ANION GAP (test code = GAP) 10-20 GLUCOSE (test code = GLU) mg/dL 74-106 BLOOD UREA NITROGEN (test code = BUN) mg/dL 7-18 GLOMERULAR FILTRATION RATE (test code = GFR) mL/min >=60 CREATININE (test code = CREAT) mg/dL 0.7-1.3 BUN/CREATININE RATIO (test code = BUN/CREA) 10-20 CALCIUM (test code = CA) mg/dL 8.5-10.1 HEPATIC FUNCTION [id number] 19:22:00* Test Item Value Reference Range Interpretation Comments TOTAL PROTEIN (test code = PROT) gram/dL 6.4-8.2 ALBUMIN (test code = ALB) g/dL 3.4-5.0 GLOBULIN (test code = GLOB) gram/dL 2.7-4.2 ALBUMIN/GLOBULIN RATIO (test code = A/G) 0.75-1.50 BILIRUBIN TOTAL (test code = BILT) mg/dL 0.0-1.0 BILIRUBIN DIRECT (test code = BILD) mg/dL 0.0-0.20 SGOT/AST (test code = AST) IUnit/L 15-37 SGPT/ALT (test code = ALT) IUnit/L 12-78 ALKALINE PHOSPHATASE TOTAL (test code = ALKP) IUnit/L 45-117 [id number] 19:22:00* Test Item Value Reference Range Interpretation Comments TROPONIN-I (test code = TROPI) ng/mL 0-0.045 CBC W/AUTO [id number] 19:13:00* Test Item Value Reference Range Interpretation Comments WHITE BLOOD CELL (test code = WBC) K/mm3 4.5-12.5 RED BLOOD CELL (test code = RBC) mill/mm3 4.0-5.8 HEMOGLOBIN (test code = HGB) 15.0 gram/dL 13.0-17.5 N HEMATOCRIT (test code = HCT) 45.1 % 42.0-52.0 N MEAN CELL VOLUME (test code = MCV) fL 80-98 MEAN CELL HGB (test code = MCH) picogram 27.0-33.0 MEAN CELL HGB CONCETRATION (test code = MCHC) gram/dL 33.0-36. 0 RED CELL DISTRIBUTION WIDTH (test code = RDW) % 11.6-16. 2 RED CELL DISTRIBUTION WIDTH SD (test code = RDW-SD) fL 37 .0-51.0 PLATELET COUNT (test code = PLT) K/mm3 150-450 MEAN PLATELET VOLUME (test code = MPV) fL 6.7-11.0 NEUTROPHIL % (test code = NT%) % 39.0-69.0 IMMATURE GRANULOCYTE % (test code = IG%) % 0.0-5.0 LYMPHOCYTE % (test code = LY%) % 25.0-55.0 MONOCYTE % (test code = MO%) % 0.0-10.0 EOSINOPHIL % (test code = EO%) % 0.0-5.0 BASOPHIL % (test code = BA%) % 0.0-1.0 NEUTROPHIL # (test code = NT#) K/mm3 1.8-7.7 LYMPHOCYTE # (test code = LY#) K/mm3 1.0-5.0 MONOCYTE # (test code = MO#) K/mm3 0-0.8 EOSINOPHIL # (test code = EO#) K/mm3 0.0-0.5 BASOPHIL # (test code = BA#) K/mm3 0.0-0.2 - XR CHEST 1 [id number] 18:57:00 FAX: Sheridan Elizabeth MD [phone] [place]: St: REG FAX: Nic Solomon DO Name: SHAHRIAR LEAL [facility] : 1940 Age/S: 78/M [address] [facility] Unit #: [id number] Loc: [place] [address] Phys: Nic Solomon DO Acct: [id number] Dis Date: Status: REG ER PHONE #: [phone] Exam Date: 08/10/2019 1818 FAX #: [phone] Reason: Altered Mental Status EXAMS: CPT CODE: [id number] XR CHEST 1 V 01333 REASON FOR EXAM: Altered Mental Status EXAM ORDER DATE: 08/10/2019 5:36 PM Ordering: Nic Solomon DO Attending:Nic Solomon DO Location:[facility] PROCEDURE: - XR CHEST 1 V COMPARISON: FINDINGS: Portable AP frontal view of the chest obtained at 6:11 PM shows clear lungs without evidence of consolidation. There is no evidence of effusion. The heart size is within normal limits. Pulmonary vasculatures are unremarkable. 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 IMPRESSION: No active disease. at 1857 Reported and signed by: Dc Johnson M.D. CC: Sheridan Mahoney Adam T DO Technologist: ZEFERINO WAHL Trnscrd Date/Time/By: 0 (1856) : By: FaustinaVTL Orig Print D/T: S: 08/10/2019 (1899) PAGE 1 Signed Report Creatine Kinase [id number] 17:13:00* Test Item Value Reference Range Interpretation Comments Creatine Kinase MB (test code = 92901-5) 0.70 0-5.0 [facility] HospitalTroponin [id number] 17:13:00* Test Item Value Reference Range Interpretation Comments Troponin I (test code = NME7609) 0.007 0-0.300 [facility] Texasodium [id number] 17:10:00* Test Item Value Reference Range Interpretation Comments Sodium Level (test code = 2951-2) 140 136-145 [facility] HospitalPotassium [id number] 17:10:00* Test Item Value Reference Range Interpretation Comments Potassium Level (test code = 2823-3) 3.8 3.5-5.1 [facility] HospitalChloride [id number] 17:10:00* Test Item Value Reference Range Interpretation Comments Chloride Level (test code = 2075-0) 102 98-107 [facility] HospitalCarbon Dioxide [id number] 17:10:00* Test Item Value Reference Range Interpretation Comments Carbon Dioxide Level (test code = 2028-9) 28 22-29 [facility] HospitalAnion [id number] 17:10:00* Test Item Value Reference Range Interpretation Comments Anion Gap (test code = 82627-2) 13.8 8-16 [facility] HospitalBlood Urea [id number] 17:10:00* Test Item Value Reference Range Interpretation Comments Blood Urea Nitrogen (test code = 3094-0) 15 7-26 [facility] HospitalCreatinine2019-10-01 17:10:00* Test Item Value Reference Range Interpretation Comments Creatinine (test code = 2160-0) 1.52 0.72-1.25 H [facility] HospitalBUN/Creatinine Tgeep5838-37-63 17:10:00* Test Item Value Reference Range Interpretation Comments BUN/Creatinine Ratio (test code = 3097-3) 10 6-25 [facility] HospitalEstimat Glomerular Filtration Rate 2018-12-29 17:10:00* Test Item Value Reference Range Interpretation Comments Estimat Glomerular Filtration Rate (test code = 904094368) 45 >60 L Ranges were taken from the National Kidney Disease Education Program and the [facility] literature.Reference ranges:60 or greater: Pquhrj91-31 ( for 3 consecutive months): Chronic kidney disease 15 or less: Kidney failureMemorial Hermann Sugar Land HospitalGlucose Stqzg4444-85-62 17:10:00* Test Item Value Reference Range Interpretation Comments Glucose Level (test code = OYA8148) 160 74-118 H [facility] HospitalCalcium Pnlcp7869-63-47 17:10:00* Test Item Value Reference Range Interpretation Comments Calcium Level (test code = 09279-9) 9.0 8.4-10.2 [facility] HospitalTotal Tuuqmdabx0620-20-04 17:10:00* Test Item Value Reference Range Interpretation Comments Total Bilirubin (test code = 1975-2) 0.4 0.2-1.2 [facility] HospitalAspartate Amino Transf (AST/SGOT) 2018-12-29 17:10:00* Test Item Value Reference Range Interpretation Comments Aspartate Amino Transf (AST/SGOT) (test code = Aspartate Amino Transf (AST/SGOT)) 20 5-34 [facility] HospitalAlanine Aminotransferase (ALT/SGPT) 2018-12-29 17:10:00* Test Item Value Reference Range Interpretation Comments Alanine Aminotransferase (ALT/SGPT) (test code = 1742-6) 14 0-55 [facility] HospitalTotal Kjinpgg3756-05-96 17:10:00* Test Item Value Reference Range Interpretation Comments Total Protein (test code = 2885-2) 6.9 6.5-8.1 [facility] HospitalAlbumin2019-10-01 17:10:00* Test Item Value Reference Range Interpretation Comments Albumin (test code = 1751-7) 3.6 3.5-5.0 [facility] HospitalGlobulin2019-10-01 17:10:00* Test Item Value Reference Range Interpretation Comments Globulin (test code = 99579-3) 3.3 2.3-3.5 [facility] HospitalAlbumin/Globulin [id number] 17:10:00 * Test Item Value Reference Range Interpretation Comments Albumin/Globulin Ratio (test code = 1759-0) 1.1 0.8-2.0 [facility] HospitalAlkaline Smppcbvhnpy1729-06-05 17:10:00* Test Item Value Reference Range Interpretation Comments Alkaline Phosphatase (test code = 6768-6) 46 40-150 [facility] HospitalCreatine Yfkhop5035-47-59 17:10:00* Test Item Value Reference Range Interpretation Comments Creatine Kinase (test code = 2157-6) 62 30-200 [facility] HospitalWhite Blood Vfzoa6458-96-02 16:51:00* Test Item Value Reference Range Interpretation Comments White Blood Count (test code = 6690-2) 8.50 4.8-10.8 [facility] HospitalRed Blood Ywfcm2238-02-35 16:51:00* Test Item Value Reference Range Interpretation Comments Red Blood Count (test code = 789-8) 3.79 4.3-5.7 L [facility] HospitalHemoglobin2019-10-01 16:51:00* Test Item Value Reference Range Interpretation Comments Hemoglobin (test code = 36772-1) 10.8 14.0-18.0 L [facility] HospitalHematocrit2019-10-01 16:51:00* Test Item Value Reference Range Interpretation Comments Hematocrit (test code = 4544-3) 33.3 38.2-49.6 L [facility] HospitalMean Corpuscular Nejbnz9900-50-95 16:51:00* Test Item Value Reference Range Interpretation Comments Mean Corpuscular Volume (test code = 787-2) 87.9 81-99 [facility] HospitalMean Corpuscular Qxrzcghfce2735-87-19 16:51:00* Test Item Value Reference Range Interpretation Comments Mean Corpuscular Hemoglobin (test code = 785-6) 28.5 28-32 [facility] HospitalMean Corpuscular Hemoglobin Concent 2018-12-29 16:51:00* Test Item Value Reference Range Interpretation Comments Mean Corpuscular Hemoglobin Concent (test code = 786-4) 32.4 31-35 [facility] HospitalRed Cell Distribution Jfjkf5158-45-55 16:51:00* Test Item Value Reference Range Interpretation Comments Red Cell Distribution Width (test code = 61238-7) 18.0 11.7 -14.4 H [facility] HospitalPlatelet Lktzc2589-20-57 16:51:00* Test Item Value Reference Range Interpretation Comments Platelet Count (test code = 777-3) 140 140-360 [facility] HospitalNeutrophils (%) (Auto)2018-12-29 16:51:00 * Test Item Value Reference Range Interpretation Comments Neutrophils (%) (Auto) (test code = 21997-4) 50.3 38.7-80.0 [facility] HospitalLymphocytes (%) (Auto)2018-12-29 16:51:00 * Test Item Value Reference Range Interpretation Comments Lymphocytes (%) (Auto) (test code = 736-9) 34.6 18.0-39.1 [facility] HospitalMonocytes (%) (Auto)2018-12-29 16:51:00* Test Item Value Reference Range Interpretation Comments Monocytes (%) (Auto) (test code = 5905-5) 12.8 4.4-11.3 H [facility] HospitalEosinophils (%) (Auto)2018-12-29 16:51:00 * Test Item Value Reference Range Interpretation Comments Eosinophils (%) (Auto) (test code = 713-8) 0.7 0.0-6.0 [facility] HospitalBasophils (%) (Auto)2018-12-29 16:51:00* Test Item Value Reference Range Interpretation Comments Basophils (%) (Auto) (test code = 706-2) 0.4 0.0-1.0 [facility] HospitalIM GRANULOCYTES %2018-12-29 16:51:00* Test Item Value Reference Range Interpretation Comments IM GRANULOCYTES % (test code = IM GRANULOCYTES %) 1.2 0.0- 1.0 H [facility] HospitalNeutrophils # (Auto)2018-12-29 16:51:00* Test Item Value Reference Range Interpretation Comments Neutrophils # (Auto) (test code = 751-8) 4.3 2.1-6.9 [facility] HospitalLymphocytes # (Auto)2018-12-29 16:51:00* Test Item Value Reference Range Interpretation Comments Lymphocytes # (Auto) (test code = 04225-8) 2.9 1.0-3.2 [facility] HospitalMonocytes # (Auto)2018-12-29 16:51:00* Test Item Value Reference Range Interpretation Comments Monocytes # (Auto) (test code = 742-7) 1.1 0.2-0.8 H [facility] HospitalEosinophils # (Auto)2018-12-29 16:51:00* Test Item Value Reference Range Interpretation Comments Eosinophils # (Auto) (test code = 711-2) 0.1 0.0-0.4 [facility] HospitalBasophils # (Auto)2018-12-29 16:51:00* Test Item Value Reference Range Interpretation Comments Basophils # (Auto) (test code = 704-7) 0.0 0.0-0.1 [facility] HospitalAbsolute Immature Granulocyte (auto 2018-12-29 16:51:00* Test Item Value Reference Range Interpretation Comments Absolute Immature Granulocyte (auto (jordon t code = Absolute Immature Granulocyte (auto) 0.10 0-0.1 [facility] Texaserum or plasma creatine kinase measurement (enzymatic activity/volume)2018-12-29 16:34:00* Test Item Value Reference Range Interpretation Comments Creatine Kinase (test code = 2157-6) 62 30-200 [facility] University of Texaserum or plasma creatine kinase MB measurement (mass/volume)2018-12-29 16:34:00* Test Item Value Reference Range Interpretation Comments Creatine Kinase MB (test code = 17279-9) 0.70 0-5.0 [facility] HospitalTroponin I measurement by highly sensitive enzyme gymfabtoexv6975-23-03 16:34:00* Test Item Value Reference Range Interpretation Comments Troponin I (test code = 44476-3) 0.007 0-0.300 [facility] HospitalCHEST SINGLE (PORTABLE)2018-12-29 16:29:00 [facility] [address] [address] Patient Name: SHAHRIAR LEAL MR #: [id number] : 1940 Age/Sex: 78/M Req #: [id number] Adm Physician: Ordered by: GRACE HERRERA DO Report #: [id number] Location: ER Room/Bed: Procedure: [id number] DX/CH EST SINGLE (PORTABLE) Exam Date: 12/29/18 Exam Time: 1608 REPORT STATUS: Signed EXAM INATION: CHEST SINGLE (PORTABLE) INDICATION: Hypotension COMPARIS ON: Chest radiograph of 10/27/2018 FINDINGS: LINES/TUBES:Left ches t pacer with leads in unchanged position. LUNGS:The lungs are well-inflated . No focal consolidation. Mild central pulmonary vascular congestion without f rank edema. PLEURA:No pleural effusion or pneumothorax. MEDIASTINUM:Th e cardiomediastinal silhouette appears unchanged in size and shape. BONES /SOFT TISSUES:No acute osseous injury. ABDOMEN:No free air under the diaphr agm. IMPRESSION: Mild central pulmonary vascular congestion without f rank pulmonary edema. Signed by: Lulu Dominguez MD on 12/29/2018 4:31 PM Dictated By: LULU DOMINGUEZ MD 1631 Transcribed By: TIANA on 12/29/18 1631 COPY TO: GRACE HERRERA DO Bedside Yisqbjg3025-49-80 15:18:00* Test Item Value Reference Range Interpretation Comments Bedside Glucose (test code = 14223-0) 220 70-120 H Meter ID: [id number] [facility]Bed[facility] Gl[facility] 2018-11-07 15:18:00* Test Item Value Reference Range Interpretation Comments Bedside Glucose (test code = 16689-2) 220 70-120 H Meter ID: [id number] [facility]enVancomycin Level Zukreg6470-78-19 15:02:00* Test Item Value Reference Range Interpretation Comments Vancomycin Level Trough (test code = 4092-3) 9.0 5.0-10.0 [facility] HospitalVancomycin Level Lqcrbb1362-12-92 15:02:00* Test Item Value Reference Range Interpretation Comments Vancomycin Level Trough (test code = 4092-3) 9.0 5.0-10.0 [facility] Texasodium Lpirx5620-79-44 06:16:00* Test Item Value Reference Range Interpretation Comments Sodium Level (test code = 2951-2) 140 136-145 [facility] HospitalPotassium Ogovv4039-81-07 06:16:00* Test Item Value Reference Range Interpretation Comments Potassium Level (test code = 2823-3) 3.2 3.5-5.1 L [facility] HospitalChloride Jwohc3819-60-98 06:16:00* Test Item Value Reference Range Interpretation Comments Chloride Level (test code = 2075-0) 100 98-107 [facility] HospitalCarbon Dioxide Awgdm7892-74-21 06:16:00* Test Item Value Reference Range Interpretation Comments Carbon Dioxide Level (test code = 2028-9) 28 22-29 [facility] HospitalAnion Sex4196-77-53 06:16:00* Test Item Value Reference Range Interpretation Comments Anion Gap (test code = 89210-5) 15.2 8-16 [facility] HospitalBlood Urea Igjgogmv7174-53-36 06:16:00* Test Item Value Reference Range Interpretation Comments Blood Urea Nitrogen (test code = 3094-0) 9 7- [facility] HospitalCreatinine2019-08-09 06:16:00* Test Item Value Reference Range Interpretation Comments Creatinine (test code = 2160-0) 1.06 0.72-1.25 [facility] HospitalBUN/Creatinine Xivkk4109-67-55 06:16:00* Test Item Value Reference Range Interpretation Comments BUN/Creatinine Ratio (test code = 3097-3) 8 - [facility] HospitalEstimat Glomerular Filtration Rate 2018-11-06 06:16:00* Test Item Value Reference Range Interpretation Comments Estimat Glomerular Filtration Rate (test code = 493380877) > 60 >60 Ranges were taken from the National Kidney Disease Education Program and the [facility] Foundation literature.Reference ranges:60 or greater: Bbulbn29-05 ( for 3 consecutive months): Chronic kidney disease 15 or less: Kidney failureMemorial Hermann Sugar Land HospitalGlucose Zknrx6045-03-58 06:16:00* Test Item Value Reference Range Interpretation Comments Glucose Level (test code = ZUV4436) 185 74-118 H [facility] HospitalCalcium Usnpg2462-92-87 06:16:00* Test Item Value Reference Range Interpretation Comments Calcium Level (test code = 59141-2) 8.7 8.4-10.2 [facility] HospitalWhite Blood Esakm3614-02-85 06:13:00* Test Item Value Reference Range Interpretation Comments White Blood Count (test code = 6690-2) 6.60 4.8-10.8 [facility] HospitalRed Blood Puuyc7063-85-59 06:13:00* Test Item Value Reference Range Interpretation Comments Red Blood Count (test code = 789-8) 3.53 4.3-5.7 L [facility] HospitalHemoglobin2019-08-09 06:13:00* Test Item Value Reference Range Interpretation Comments Hemoglobin (test code = 54245-3) 9.7 14.0-18.0 L [facility] HospitalHematocrit2019-08-09 06:13:00* Test Item Value Reference Range Interpretation Comments Hematocrit (test code = 4544-3) 30.3 38.2-49.6 L [facility] HospitalMean Corpuscular Tdhhbk4795-39-17 06:13:00* Test Item Value Reference Range Interpretation Comments Mean Corpuscular Volume (test code = 787-2) 85.8 81-99 [facility] HospitalMean Corpuscular Rennjeskbe6118-70-95 06:13:00* Test Item Value Reference Range Interpretation Comments Mean Corpuscular Hemoglobin (test code = 785-6) 27.5 28-32 L [facility] HospitalMean Corpuscular Hemoglobin Concent 2018-11-06 06:13:00* Test Item Value Reference Range Interpretation Comments Mean Corpuscular Hemoglobin Concent (test code = 786-4) 32.0 31-35 [facility] HospitalRed Cell Distribution Ctlvw6502-60-30 06:13:00* Test Item Value Reference Range Interpretation Comments Red Cell Distribution Width (test code = 97463-7) 14.9 11.7 -14.4 H [facility] HospitalPlatelet Vjyou9160-32-00 06:13:00* Test Item Value Reference Range Interpretation Comments Platelet Count (test code = 777-3) 186 140-360 [facility] HospitalNeutrophils (%) (Auto)2018-11-06 06:13:00 * Test Item Value Reference Range Interpretation Comments Neutrophils (%) (Auto) (test code = 48349-2) 32.4 38.7-80.0 L [facility] HospitalLymphocytes (%) (Auto)2018-11-06 06:13:00 * Test Item Value Reference Range Interpretation Comments Lymphocytes (%) (Auto) (test code = 736-9) 48.6 18.0-39.1 H [facility] HospitalMonocytes (%) (Auto)2018-11-06 06:13:00* Test Item Value Reference Range Interpretation Comments Monocytes (%) (Auto) (test code = 5905-5) 15.2 4.4-11.3 H [facility] HospitalEosinophils (%) (Auto)2018-11-06 06:13:00 * Test Item Value Reference Range Interpretation Comments Eosinophils (%) (Auto) (test code = 713-8) 1.8 0.0-6.0 [facility] [facility]2018-11-06 06:13:00* Test Item Value Reference Range Interpretation Comments Basophils (%) (Auto) (test code = 706-2) 0.5 0.0-1.0 [facility] %2018-11-06 06:13:00* Test Item Value Reference Range Interpretation Comments IM GRANULOCYTES % (test code = IM GRANULOCYTES %) 1.5 0.0- 1.0 H [facility] HospitalNeutrophils # (Auto)2018-11-06 06:13:00* Test Item Value Reference Range Interpretation Comments Neutrophils # (Auto) (test code = 751-8) 2.1 2.1-6.9 [facility] HospitalLymphocytes # (Auto)2018-11-06 06:13:00* Test Item Value Reference Range Interpretation Comments Lymphocytes # (Auto) (test code = 51751-6) 3.2 1.0-3.2 [facility] HospitalMonocytes # (Auto)2018-11-06 06:13:00* Test Item Value Reference Range Interpretation Comments Monocytes # (Auto) (test code = 742-7) 1.0 0.2-0.8 H [facility] HospitalEosinophils # (Auto)2018-11-06 06:13:00* Test Item Value Reference Range Interpretation Comments Eosinophils # (Auto) (test code = 711-2) 0.1 0.0-0.4 [facility]Basophils # (Auto)2018-11-06 06:13:00* Test Item Value Reference Range Interpretation Comments Basophils # (Auto) (test code = 704-7) 0.0 0.0-0.1 [facility] HospitalAbsolute Immature Granulocyte (auto 2018-11-06 06:13:00* Test Item Value Reference Range Interpretation Comments Absolute Immature Granulocyte (auto (jordon t code = Absolute Immature Granulocyte (auto) 0.10 0-0.1 [facility]2019-08-04 14:58:00* Test Item Value Reference Range Interpretation Comments Blood Culture (test code = 33491942) NO GROWTH AFTER 5 DAYS, FINAL REPORT [facility]2019-08-04 14:58:00* Test Item Value Reference Range Interpretation Comments Blood Culture (test code = 32106513) NO GROWTH AFTER 5 DAYS, FINAL REPORT [facility] Xztmleo8179-77-91 08:57:00* Test Item Value Reference Range Interpretation Comments Wound Culture (test code = 6462-6) Organism: STAPHYLOCOCCUS AUREUS- MRSA [facility]2019-08-04 08:57:00* Test Item Value Reference Range Interpretation Comments Wound Culture (test code = 6462-6) Organism: STAPHYLOCOCCUS AUREUS- MRSA [facility]2019-08-04 07:16:00* Test Item Value Reference Range Interpretation Comments Urine Culture (test code = 630-4) Organism: STAPHYLOCOCCUS AUREUS-M [facility] Qratqaq3133-50-21 07:16:00* Test Item Value Reference Range Interpretation Comments Urine Culture (test code = 630-4) Organism: STAPHYLOCOCCUS AUREUS-M [facility] Xbxrxph7620-81-97 08:27:00* Test Item Value Reference Range Interpretation Comments Wound Culture (test code = 6462-6) Organism: STAPHYLOCOCCUS AUREUS- MRSA [facility] Xbkgsdx2926-82-76 08:27:00* Test Item Value Reference Range Interpretation Comments Wound Culture (test code = 6462-6) Organism: STAPHYLOCOCCUS AUREUS- MRSA [facility] HospitalBONE SCAN, 3 MWIHU8682-76-26 19:09:00 [place] [id number] [place] [address] Patient Name: SHAHRIAR LEAL MR #: [id number] : 1940 Age/Sex: 78/M Req #: [id number] Adm Physician: SHERIDAN MAHONEY MD Ordered by: SAMIR SIMMS DPM Report #: [id number] Location: MED/SURG3 Room/Bed: [facility] Procedure: [id number] NM/BONE SCAN, 3 PHASE Exam Date: 10/29/18 Exam Time: 1400 REPORT STATUS: Signed Bone Scan, three-phase - feet and ankles Reason for exam: Right foot cellulitis Radiopharmaceutical: Tc-99m MDP 27 mCi Comparison: Prior 3-phase bone scan 06/23/2018; right foot radiograph 10/29/2018 Following intravenous admi nistration of the radiopharmaceutical, dynamic flow and immediate blood pool i mages of the feet and ankles followed by delayed spot images were obtained. Flow and blood pool images show diffusely symmetric distribution of tracer activity to the feet and ankles with focal markedly increased tracer activity in the lateral aspect of the right foot distally. Delayed images of the fe et show focal markedly increased tracer activity in the distal portion of the right 5th metatarsal. Impression: Scan findings are consistent with o steomyelitis in the distal portion of the right 5th metatarsal. Bone scan lac ks specificity in the setting of complicated osteomyelitis and also cannot be used for identifying the end-point for treatment because osteoblastic activity persists after active infection has been adequately treated. A labeled white blood cell study adds specificity to the evaluation of osteomyelitis and can also be used to determine eradication of the infection. Signed by: Dr. Jeimy Mckeon M.D. on 10/29/2018 7:30 PM Dictated By: MUKUL [facility] Signed By: MUKUL MCKEON MD on 10/29/181929 Transcribed By: TIANA on 1929 COPY TO: SAMIR SIMMS LAVERNEloy CT FOOT LEFT [id number] 12:55:00 [place] [address] Patient Name: SHAHRIAR LEAL MR #: [id number] : 1940 Age/Sex: 78/M Req #: [id number] Adm Physician: SHERIDAN MAHONEY MD Ordered by: VALERIO BHAGAT Report #: [id number] Location: MED/SURG3 Room/Bed: [facility] Procedure: [id number] CT/CT FOOT LEFT W Exam Date: 10/29/18 Exam Time: 11 50 REPORT STATUS: Signed EXAM: C T right foot with contrast CT scan of the left foot with contrast 10/29/2018 9:37 AM INDICATION: Cellulitis. Diabetes. Abscess. Osteomyelitis. C OMPARISON: None TECHNIQUE: Right foot was scanned utilizing a multidetect or helical scanner after administration of IV contrast. Coronal and sagittal r eformations were obtained. Routine protocol was performed. Left foot was scanned utilizing a multidetector helical scanner after administration of IV contrast. Coronal and sagittal reformations were obtained. Routine protocol wa s performed. IV CONTRAST: 100 mL of Isovue-370 COMPLICATIONS: None RADIATION DOSE: Total DLP: 131 mGy*cm Estimated effective dos e: (DLP x 0.014 x size factor) mSv CTDIvol has been reviewed. It is below the limits set by the Radiation Protocol Committee (RPC). Dose modulat ion, iterative reconstruction, and/or weight based adjustment of the mA/kV was utilized to reduce the radiation dose to as low as reasonably achievable. FINDINGS: Right foot: Abnormal soft tissue swelling with apparent s kin ulceration at the level of the distal fifth metatarsal with associated oss eous erosion and cortical destruction involving the distal fifth metatarsal an d proximal fifth toe consistent with osteomyelitis. No acute fracture, loza bluxation or avascular process. Scattered degenerative change about the remain ing visualized osseous structures. Posterior and inferior calcaneal bone spurs . Scattered vascular calcification. No radiopaque foreign body Le ft foot: Surgical anchors in the posterior calcaneus with thickening of the distal Achilles tendon. Abnormal soft tissue swelling with apparent skin thickening at the level of the distal fifth metatarsal. No definite underlying osseous erosion or cortical destruction is seen to suggest osteomyelitis at this time. No acute fracture, subluxation or avascular process. Scattered d egenerative change about the remaining visualized osseous structures. Posterio r and inferior calcaneal bone spurs. Scattered vascular calcification. No radiopaque foreign body Impression: Right foot: Findings cons istent with osteomyelitis involving the distal right fifth metatarsal and prox imal fifth toe. Left foot: Postsurgical change in the posterior calcaneus w ith thickening of the distal Achilles tendon likely due to chronic tendinosis. Abnormal soft tissue swelling with apparent skin thickening at the level of t he distal fifth metatarsal. No definite underlying osseous erosion or cortical destruction is seen to suggest osteomyelitis in the left foot at this time. Signed by: Dr. Elizabeth Haywood M.D. on 10/29/2018 1:09 PM Dictated By: COL JEFRY HAYWOOD MD, MD 1301 Transcribed By: TIANA on 10/29/18 1303 COPY TO: VALERIO BHAGAT CT FOOT RIGHT [id number] 12:55:00 [place] [address] Patient Name: SHAHRIAR LEAL MR #: [id number] : 1940 Age/Sex: 78/M Req #: [id number] Adm Physician: SHERIDAN MAHONEY MD Ordered by: VALERIO BHAGAT Report #: [id number] Location: MED/SURG3 Room/Bed: 292-1 Procedure: [id number] CT/CT FOOT RIGHT W Exam Date: 10/29/18 Exam Time: 1 150 REPORT STATUS: Signed EXAM: CT right foot with contrast CT scan of the left foot with contrast 10/29/2018 9:37 AM INDICATION: Cellulitis. Diabetes. Abscess. Osteomyelitis. COMPARISON: None TECHNIQUE: Right foot was scanned utilizing a multidetec tor helical scanner after administration of IV contrast. Coronal and sagittal reformations were obtained. Routine protocol was performed. Left foot wa s scanned utilizing a multidetector helical scanner after administration of IV contrast. Coronal and sagittal reformations were obtained. Routine protocol w as performed. IV CONTRAST: 100 mL of Isovue-370 COMPLICATIONS: None RADIATION DOSE: Total DLP: 131 mGy*cm Estimated effective do se: (DLP x 0.014 x size factor) mSv CTDIvol has been reviewed. It is belo w the limits set by the Radiation Protocol Committee (RPC). Dose modula tion, iterative reconstruction, and/or weight based adjustment of the mA/kV wa s utilized to reduce the radiation dose to as low as reasonably achievable. FINDINGS: Right foot: Abnormal soft tissue swelling with apparent skin ulceration at the level of the distal fifth metatarsal with associated os seous erosion and cortical destruction involving the distal fifth metatarsal a nd proximal fifth toe consistent with osteomyelitis. No acute fracture, s ubluxation or avascular process. Scattered degenerative change about the remai ronnie visualized osseous structures. Posterior and inferior calcaneal bone spur s. Scattered vascular calcification. No radiopaque foreign body L eft foot: Surgical anchors in the posterior calcaneus with thickening of th e distal Achilles tendon. Abnormal soft tissue swelling with apparent ski n thickening at the level of the distal fifth metatarsal. No definite underlyi ng osseous erosion or cortical destruction is seen to suggest osteomyelitis at this time. No acute fracture, subluxation or avascular process. Scattered degenerative change about the remaining visualized osseous structures. Posteri or and inferior calcaneal bone spurs. Scattered vascular calcification. No radiopaque foreign body Impression: Right foot: Findings con sistent with osteomyelitis involving the distal right fifth metatarsal and pro ximal fifth toe. Left foot: Postsurgical change in the posterior calcaneus with thickening of the distal Achilles tendon likely due to chronic tendinosis . Abnormal soft tissue swelling with apparent skin thickening at the level of the distal fifth metatarsal. No definite underlying osseous erosion or cortica l destruction is seen to suggest osteomyelitis in the left foot at this time. Signed by: Dr. Elizabeth Haywood M.D. on 10/29/2018 1:09 PM Dictated By: CELINE HAYWOOD MD, MD 130 9 Transcribed By: TIANA on 10/29/18 1309 COPY TO: VALERIO BHAGAT PA Urine [id number] 16:16:00* Test Item Value Reference Range Interpretation Comments Urine WBC (test code = 5821-4) >50 0-5 H [facility] [id number] 16:16:00* Test Item Value Reference Range Interpretation Comments Urine RBC (test code = 18061-6) 6-10 0-5 H [facility] Vwnfkgsu4158-06-49 16:16:00* Test Item Value Reference Range Interpretation Comments Urine Bacteria (test code = 98953-9) FEW NONE [facility] Epithelial Pwchq2047-31-62 16:16:00 * Test Item Value Reference Range Interpretation Comments Urine Epithelial Cells (test code = 01582-7) NONE NONE [facility] [id number] 16:16:00* Test Item Value Reference Range Interpretation Comments Urine WBC (test code = 5821-4) >50 0-5 H [facility] [id number] 16:16:00* Test Item Value Reference Range Interpretation Comments Urine RBC (test code = 09856-5) 6-10 0-5 H [facility] Urijxrlr6238-00-53 16:16:00* Test Item Value Reference Range Interpretation Comments Urine Bacteria (test code = 98392-9) FEW NONE [facility] Epithelial Bbvon9967-17-23 16:16:00 * Test Item Value Reference Range Interpretation Comments Urine Epithelial Cells (test code = 94167-0) NONE NONE [facility] Xobtt6836-77-53 16:05:00* Test Item Value Reference Range Interpretation Comments Urine Color (test code = 5778-6) YELLOW YELLOW [facility] Kiixbri2002-49-19 16:05:00* Test Item Value Reference Range Interpretation Comments Urine Clarity (test code = 77168-9) CLOUDY CLEAR H [facility] Specific Ebyoltf6593-29-65 16:05:00 * Test Item Value Reference Range Interpretation Comments Urine Specific [place] (test code = 5811-5) 1.025 1.010-1.02 5 [facility] [id number] 16:05:00* Test Item Value Reference Range Interpretation Comments Urine pH (test code = 01893-4) 6 5-7 [facility] Leukocyte Iaprskty6669-35-26 16:05:00* Test Item Value Reference Range Interpretation Comments Urine Leukocyte Esterase (test code = 00744-1) LARGE NEGATIV E [facility] Avhwwbv9433-00-70 16:05:00* Test Item Value Reference Range Interpretation Comments Urine Nitrite (test code = 82397-3) NEGATIVE NEGATIVE [facility] Ssfkhoj5120-69-33 16:05:00* Test Item Value Reference Range Interpretation Comments Urine Protein (test code = 15459-6) 1+ NEGATIVE H [facility] Glucose (UA)2018-10-28 16:05:00* Test Item Value Reference Range Interpretation Comments Urine Glucose (UA) (test code = 62915-2) NEGATIVE NEGATIVE [facility] Fgtbimn3233-14-81 16:05:00* Test Item Value Reference Range Interpretation Comments Urine Ketones (test code = 07803-8) NEGATIVE NEGATIVE [facility] Dgkpujqjqbrm8596-33-03 16:05:00* Test Item Value Reference Range Interpretation Comments Urine Urobilinogen (test code = 48177-9) 0.2 0.2-1 [facility] Aojydfgyq1591-19-35 16:05:00* Test Item Value Reference Range Interpretation Comments Urine Bilirubin (test code = 1977-8) NEGATIVE NEGATIVE [facility] Qmlgg3243-13-43 16:05:00* Test Item Value Reference Range Interpretation Comments Urine Blood (test code = 20972-8) 1+ NEGATIVE [facility] Suzzo9099-14-32 16:05:00* Test Item Value Reference Range Interpretation Comments Urine Color (test code = 5778-6) YELLOW YELLOW [facility] Rdpbbce4774-73-79 16:05:00* Test Item Value Reference Range Interpretation Comments Urine Clarity (test code = 65558-7) CLOUDY CLEAR H [facility] HospitalU[facility] Specific Zraseor2577-53-99 16:05:00 * Test Item Value Reference Range Interpretation Comments Urine Specific [place] (test code = 5811-5) 1.025 1.010-1.02 5 [facility] [id number] 16:05:00* Test Item Value Reference Range Interpretation Comments Urine pH (test code = 55655-1) 6 5-7 [facility] Leukocyte Uslzkegw4194-49-41 16:05:00* Test Item Value Reference Range Interpretation Comments Urine Leukocyte Esterase (test code = 59376-4) LARGE NEGATIV E [facility] Pofdeof1232-64-77 16:05:00* Test Item Value Reference Range Interpretation Comments Urine Nitrite (test code = 85827-8) NEGATIVE NEGATIVE [facility] Ergnnmm8906-21-79 16:05:00* Test Item Value Reference Range Interpretation Comments Urine Protein (test code = 76706-9) 1+ NEGATIVE H [facility] Glucose (UA)2018-10-28 16:05:00* Test Item Value Reference Range Interpretation Comments Urine Glucose (UA) (test code = 43149-0) NEGATIVE NEGATIVE [facility] Flixzrb4304-18-25 16:05:00* Test Item Value Reference Range Interpretation Comments Urine Ketones (test code = 70575-8) NEGATIVE NEGATIVE [facility] Hdvumiaenqls2889-49-35 16:05:00* Test Item Value Reference Range Interpretation Comments Urine Urobilinogen (test code = 86053-6) 0.2 0.2-1 [facility] Rqexviihx8536-84-60 16:05:00* Test Item Value Reference Range Interpretation Comments Urine Bilirubin (test code = 1977-8) NEGATIVE NEGATIVE [facility] Qktiy2030-37-88 16:05:00* Test Item Value Reference Range Interpretation Comments Urine Blood (test code = 32833-4) 1+ NEGATIVE [facility] HospitalPhosphorus Pqqvs8918-15-08 07:07:00* Test Item Value Reference Range Interpretation Comments Phosphorus Level (test code = JHR5530) 2.6 2.3-4.7 [facility] HospitalMagnesium Ukvzy6358-49-58 07:07:00* Test Item Value Reference Range Interpretation Comments Magnesium Level (test code = 93098-8) 1.3 1.3-2.1 [facility] HospitalTotal Hdpkghzvl7524-89-37 07:07:00* Test Item Value Reference Range Interpretation Comments Total Bilirubin (test code = 1975-2) 0.4 0.2-1.2 [facility] HospitalAspartate Amino Transf (AST/SGOT) 2018-10-28 07:07:00* Test Item Value Reference Range Interpretation Comments Aspartate Amino Transf (AST/SGOT) (test code = Aspartate Amino Transf (AST/SGOT)) 12 5-34 [facility] HospitalAlanine Aminotransferase (ALT/SGPT) 2018-10-28 07:07:00* Test Item Value Reference Range Interpretation Comments Alanine Aminotransferase (ALT/SGPT) (test code = 1742-6) 14 0-55 [facility] HospitalTotal Cemjyec7479-86-64 07:07:00* Test Item Value Reference Range Interpretation Comments Total Protein (test code = 2885-2) 6.5 6.5-8.1 [facility] HospitalAlbumin2019-07-31 07:07:00* Test Item Value Reference Range Interpretation Comments Albumin (test code = 1751-7) 2.8 3.5-5.0 L [facility] HospitalGlobulin2019-07-31 07:07:00* Test Item Value Reference Range Interpretation Comments Globulin (test code = 19281-9) 3.7 2.3-3.5 H [facility] HospitalAlbumin/Globulin Xscvq1722-10-24 07:07:00 * Test Item Value Reference Range Interpretation Comments Albumin/Globulin Ratio (test code = 1759-0) 0.8 0.8-2.0 [facility] HospitalAlkaline Mykbwwuvtxq5678-38-38 07:07:00* Test Item Value Reference Range Interpretation Comments Alkaline Phosphatase (test code = 6768-6) 57 40-150 [facility] HospitalPhosphorus Yabgd1709-93-13 07:07:00* Test Item Value Reference Range Interpretation Comments Phosphorus Level (test code = IDD3441) 2.6 2.3-4.7 [facility] HospitalMagnesium Vafua4146-92-35 07:07:00* Test Item Value Reference Range Interpretation Comments Magnesium Level (test code = 34672-2) 1.3 1.3-2.1 [facility] HospitalLactic Acid Ocbop3927-42-83 19:42:00* Test Item Value Reference Range Interpretation Comments Lactic Acid Level (test code = Lactic Acid Level) 19.8 4.5- 19.8 [facility] HospitalLactic Acid Uviko7485-15-35 19:42:00* Test Item Value Reference Range Interpretation Comments Lactic Acid Level (test code = Lactic Acid Level) 19.8 4.5- 19.8 [facility] HospitalCHEST SINGLE (PORTABLE)2018-10-27 15:54:00 [facility] [place] [id number] Patient Name: SHAHRIAR LEAL MR #: [id number] : 1940 Age/Sex: 78/M Req #: [id number] Adm Physician: SHERIDAN MAHONEY MD Ordered by: GRACE YADAV BUILDING ADMIN Report #: [id number] Location: [facility] Room/Bed: [place] [address] Procedure: [id number] DX/CHEST SINGLE (PORTABLE) Exam Date: 10/27/18 Exam Time: 1510 REPORT STATUS: Signed EXAMINATION: CHEST SINGLE (PORTABLE) INDICATION: Infection SHAHRIAR RISON: None FINDINGS: LINES/TUBES:Left chest AICD with leads unch anged. EKG leads overlie the chest. LUNGS:The lungs are moderately inflated . No focal consolidation or pulmonary edema. PLEURA:No pleural effusion o r pneumothorax. MEDIASTINUM:The cardiomediastinal silhouette appears normal in size and shape. BONES/SOFT TISSUES:No acute osseous injury. ABDOME N:No free air under the diaphragm. IMPRESSION: No focal pneumonia or pulmonary edema. Signed by: Lulu Dominguez MD on 10/27/2018 3:56 PM Dict ated By: LULU DOMINGUEZ MD 55 Transcribed By: TIANA on 10/27/181555 COPY TO: GRACE YADAV [employer]ILD[employer] ADMIN FOOT RIGHT YCZEHZWX6072-79-31 15:51:00 [place] [id number] Patient Name: SHAHRIAR LAEL MR #: [id number] : 1940 Age/Sex: 78/M Req #: [id number] Adm Physician: SHERIDAN MAHONEY MD Ordered by: GRACE YADAV BUILDING ADMIN Report #: [id number] Location: [facility] Room/Bed: [place] [address] Procedure: [id number] DX/FOOT RIGHT COMPLETE Exam Date: 10/27/18 Exam Time : 1510 REPORT STATUS: Signed EXA MINATION: FOOT RIGHT COMPLETE INDICATION: Concern for osteomyelitis, f oot infection COMPARISON: Right foot radiographs of 06/23/2018 FIN DINGS: 3 views of the right foot demonstrate no acute fracture or dislocati on. There is soft tissue swelling and apparent defect along the lateral foot s oft tissues at the level of the fifth digit MTP joint. There is underlying ost eopenia and erosive changes at the fifth metatarsal head concerning for osteom yelitis. This is new compared to the prior foot radiographs of 06/23/2018. Mild pes planus deformity. Mild scattered degenerative changes. Prominent plantar calcaneal spur. Atherosclerotic vascular calcifications. IMPRESSION: S oft tissue swelling and defect at the lateral foot overlying the fifth digit M TP joint with underlying osteopenia and erosive changes of the fifth metatarsa l head concerning for osteomyelitis. Signed by: Lulu Dominguez MD on 10/27/2018 3:54 PM Dictated By: LULU DOMINGUEZ MD 5289 Transcribed By: TIANA on 10/27/18 3921 COPY TO: GRACE YADAV [employer]ILD[employer] ADMIN Erythrocyte Sedimentation Frze6727-50-07 15:48:00* Test Item Value Reference Range Interpretation Comments Erythrocyte Sedimentation Rate (test code = 4537-7) 67 0- 13 H [facility] HospitalErythrocyte Sedimentation Nrxc8898-84-27 15:48:00* Test Item Value Reference Range Interpretation Comments Erythrocyte Sedimentation Rate (test code = 4537-7) 67 0- 13 H [facility] HospitalB-Type Natriuretic Nacphnv1150-06-46 15:36:00* Test Item Value Reference Range Interpretation Comments B-Type Natriuretic Peptide (test code = 69275-1) 61.2 0-100 [facility] HospitalCreatine Kinase PJ6414-94-04 15:36:00* Test Item Value Reference Range Interpretation Comments Creatine Kinase MB (test code = 19100-7) 0.90 0-5.0 [facility] HospitalTroponin S1136-41-16 15:36:00* Test Item Value Reference Range Interpretation Comments Troponin I (test code = WCK2809) 0.009 0-0.300 [facility] HospitalB-Type Natriuretic Rpwhjjs4658-72-82 15:36:00* Test Item Value Reference Range Interpretation Comments B-Type Natriuretic Peptide (test code = 55034-3) 61.2 0-100 [facility] HospitalCreatine Konglt8732-63-05 15:27:00* Test Item Value Reference Range Interpretation Comments Creatine Kinase (test code = 2157-6) 25 30-200 L [facility] HospitalProthrombin Lgzg0900-08-07 15:19:00* Test Item Value Reference Range Interpretation Comments Prothrombin Time (test code = 5902-2) 12.6 11.9-14.5 [facility] HospitalProthromb Time International Ratio 2018-10-27 15:19:00* Test Item Value Reference Range Interpretation Comments Prothromb Time International Ratio (test code = 6301-6) 0.90 Oral Anticoagulant Therapy INR Values:1. Low Intensity Therapy 1.5 - 2.02 . Moderate Intensity Therapy 2.0 - 3.03. High Intensity Therapy(1) 2.5 - 3. 54. High Intensity Therapy(2) 3.0 - 4.05. Panic Value INR > 5.0 [facility] HospitalActivated Partial Thromboplast Time 2018-10-27 15:19:00* Test Item Value Reference Range Interpretation Comments Activated Partial Thromboplast Time (test code = 78659-9) 30.9 23.8-35.5 [facility] [facility] HospitalProthrombin [id number] 15:19:00* Test Item Value Reference Range Interpretation Comments Prothrombin Time (test code = 5902-2) 12.6 11.9-14.5 [facility] HospitalProthromb Time International Ratio 2018-10-27 15:19:00* Test Item Value Reference Range Interpretation Comments Prothromb Time International Ratio (test code = 6301-6) 0.90 Oral Anticoagulant Therapy INR Values:1. Low Intensity Therapy 1.5 - 2.02 . Moderate Intensity Therapy 2.0 - 3.03. High Intensity Therapy(1) 2.5 - 3. 54. High Intensity Therapy(2) 3.0 - 4.05. Panic Value INR > 5.0 [facility] HospitalActivated Partial Thromboplast Time 2018-10-27 15:19:00* Test Item Value Reference Range Interpretation Comments Activated Partial Thromboplast Time (test code = 24815-8) 30.9 23.8-35.5 [facility] HospitalURINALYSIS [id number] 20:17:00* Test Item Value Reference Range Interpretation Comments UA COLOR (test code = COLU) LIGHT YELLOW YELLOW UA APPEARANCE (test code = APPU) CLEAR CLEAR UA GLUCOSE DIPSTICK (test code = DGLUU) NEGATIVE mg/dL NEGATIVE UA BILIRUBIN DIPSTICK (test code = BILU) NEGATIVE mg/dL NEGATIVE UA KETONE DIPSTICK (test code = KETU) NEGATIVE mg/dL NEGATIVE UA SPECIFIC GRAVITY (test code = SGU) >=1.030 1.001-1.035 UA BLOOD DIPSTICK (test code = ALPESH) Negative mg/dL NEGATIVE UA PH DIPSTICK (test code = ALVIN) 5.5 5.0-8.0 UA PROTEIN DIPSTICK (test code = PROU) NEGATIVE mg/dL NEGATIVE UA UROBILINIOGEN DIPSTICK (test code = URO) 0.0-0.2 (NORMAL) mg/dL NEGATIVE UA NITRITE DIPSTICK (test code = SUKHWINDER) NEGATIVE NEGATIVE UA LEUKOCYTE ESTERASE W REFLEX (test code = LEUUR) NEGATIVE NEG ATIVE UA WBC (test code = WBCU) 0-5 per HPF 0-5 UA RBC (test code = RBCU) 0-2 #/HPF 0-5 UA EPITHELIAL CELLS (test code = EPIU) FEW per HPF FEW UA BACTERIA (test code = BACU) FEW #/HPF NONE A UA MUCUS (test code = MUCU) FEW #/LPF FEW Urine Source? Clean CatchURINALYSIS [id number] 19:10:00* Test Item Value Reference Range Interpretation Comments UA COLOR (test code = COLU) LIGHT YELLOW YELLOW UA APPEARANCE (test code = APPU) CLEAR CLEAR UA GLUCOSE DIPSTICK (test code = DGLUU) NEGATIVE mg/dL NEGATIVE UA BILIRUBIN DIPSTICK (test code = BILU) NEGATIVE mg/dL NEGATIVE UA KETONE DIPSTICK (test code = KETU) NEGATIVE mg/dL NEGATIVE UA SPECIFIC GRAVITY (test code = SGU) >=1.030 1.001-1.035 UA BLOOD DIPSTICK (test code = ALPESH) Negative mg/dL NEGATIVE UA PH DIPSTICK (test code = ALVIN) 5.5 5.0-8.0 UA PROTEIN DIPSTICK (test code = PROU) NEGATIVE mg/dL NEGATIVE UA UROBILINIOGEN DIPSTICK (test code = URO) 0.0-0.2 (NORMAL) mg/dL NEGATIVE UA NITRITE DIPSTICK (test code = SUKHWINDER) NEGATIVE NEGATIVE UA LEUKOCYTE ESTERASE W REFLEX (test code = LEUUR) NEG ATIVE UA WBC (test code = WBCU) 0-5 per HPF 0-5 UA RBC (test code = RBCU) 0-2 #/HPF 0-5 UA EPITHELIAL CELLS (test code = EPIU) FEW per HPF FEW UA BACTERIA (test code = BACU) FEW #/HPF NONE A UA MUCUS (test code = MUCU) FEW #/LPF FEW Urine Source? Clean CatchBASIC METABOLIC [id number] 17:43:00* Test Item Value Reference Range Interpretation Comments SODIUM (test code = NA) 136 mmol/L 136-145 N POTASSIUM (test code = K) 3.9 mmol/L 3.5-5.1 N CHLORIDE (test code = CL) 98.0 mmol/L 98-107 N CARBON DIOXIDE (test code = CO2) 29.0 mmol/L 21-32 N ANION GAP (test code = GAP) 12.9 10-20 N GLUCOSE (test code = GLU) 147 mg/dL 74-106 H BLOOD UREA NITROGEN (test code = BUN) 17 mg/dL 7-18 N GLOMERULAR FILTRATION RATE (test code = GFR) 59 mL/min >=60 Estimated GFR by using Modified MDRD formula.Chronic kidney disease is defined as either kidney damageor GFR <60 mL/min/1.73 m2 for >3 months. CREATININE (test code = CREAT) 1.20 mg/dL 0.7-1.3 N BUN/CREATININE RATIO (test code = BUN/CREA) 14.2 10-20 N CALCIUM (test code = CA) 8.9 mg/dL 8.5-10.1 N HEPATIC FUNCTION [id number] 17:43:00* Test Item Value Reference Range Interpretation Comments TOTAL PROTEIN (test code = PROT) 8.3 gram/dL 6.4-8.2 H ALBUMIN (test code = ALB) 3.3 g/dL 3.4-5.0 L GLOBULIN (test code = GLOB) 5.0 gram/dL 2.7-4.2 H ALBUMIN/GLOBULIN RATIO (test code = A/G) 0.7 0.75-1.50 L BILIRUBIN TOTAL (test code = BILT) 0.60 mg/dL 0.0-1.0 N BILIRUBIN DIRECT (test code = BILD) 0.14 mg/dL 0.0-0.20 N SGOT/AST (test code = AST) 25 IUnit/L 15-37 N SGPT/ALT (test code = ALT) 31 IUnit/L 12-78 N ALKALINE PHOSPHATASE TOTAL (test code = ALKP) 84 IUnit/L 45-117 N Note change in reference range due to change in reagent. [id number] 17:43:00* Test Item Value Reference Range Interpretation Comments LIPASE (test code = LIP) 140 U/L 73.0-393.0 N [id number] 17:43:00* Test Item Value Reference Range Interpretation Comments TROPONIN-I (test code = TROPI) <0.015 ng/mL 0-0.045 N BASIC METABOLIC [id number] 17:43:00* Test Item Value Reference Range Interpretation Comments SODIUM (test code = NA) 136 mmol/L 136-145 N POTASSIUM (test code = K) 3.9 mmol/L 3.5-5.1 N CHLORIDE (test code = CL) 98.0 mmol/L 98-107 N CARBON DIOXIDE (test code = CO2) 29.0 mmol/L 21-32 N ANION GAP (test code = GAP) 12.9 10-20 N GLUCOSE (test code = GLU) 147 mg/dL 74-106 H BLOOD UREA NITROGEN (test code = BUN) 17 mg/dL 7-18 N GLOMERULAR FILTRATION RATE (test code = GFR) 59 mL/min >=60 Estimated GFR by using Modified MDRD formula.Chronic kidney disease is defined as either kidney damageor GFR <60 mL/min/1.73 m2 for >3 months. CREATININE (test code = CREAT) 1.20 mg/dL 0.7-1.3 N BUN/CREATININE RATIO (test code = BUN/CREA) 14.2 10-20 N CALCIUM (test code = CA) 8.9 mg/dL 8.5-10.1 N HEPATIC FUNCTION [id number] 17:43:00* Test Item Value Reference Range Interpretation Comments TOTAL PROTEIN (test code = PROT) 8.3 gram/dL 6.4-8.2 H ALBUMIN (test code = ALB) 3.3 g/dL 3.4-5.0 L GLOBULIN (test code = GLOB) 5.0 gram/dL 2.7-4.2 H ALBUMIN/GLOBULIN RATIO (test code = A/G) 0.7 0.75-1.50 L BILIRUBIN TOTAL (test code = BILT) 0.60 mg/dL 0.0-1.0 N BILIRUBIN DIRECT (test code = BILD) 0.14 mg/dL 0.0-0.20 N SGOT/AST (test code = AST) 25 IUnit/L 15-37 N SGPT/ALT (test code = ALT) 31 IUnit/L 12-78 N ALKALINE PHOSPHATASE TOTAL (test code = ALKP) 84 IUnit/L 45-117 N Note change in reference range due to change in reagent. [id number] 17:43:00* Test Item Value Reference Range Interpretation Comments LIPASE (test code = LIP) 140 U/L 73.0-393.0 N [id number] 17:43:00* Test Item Value Reference Range Interpretation Comments TROPONIN-I (test code = TROPI) <0.015 ng/mL 0-0.045 N CREATINE KINASE (CK)2018-10-06 17:40:00* Test Item Value Reference Range Interpretation Comments CREATINE KINASE (CK) (test code = CK) 57 IUnit/L 26-208 N [id number] 17:40:00* Test Item Value Reference Range Interpretation Comments MAGNESIUM (test code = MAG) 1.6 mg/dL 1.8-2.4 L CREATINE KINASE (CK)2018-10-06 17:34:00* Test Item Value Reference Range Interpretation Comments CREATINE KINASE (CK) (test code = CK) IUnit/L 26-208 [id number] 17:34:00* Test Item Value Reference Range Interpretation Comments MAGNESIUM (test code = MAG) 1.6 mg/dL 1.8-2.4 L BASIC METABOLIC [id number] 17:31:00* Test Item Value Reference Range Interpretation Comments SODIUM (test code = NA) 136 mmol/L 136-145 N POTASSIUM (test code = K) 3.9 mmol/L 3.5-5.1 N CHLORIDE (test code = CL) 98.0 mmol/L 98-107 N CARBON DIOXIDE (test code = CO2) mmol/L 21-32 ANION GAP (test code = GAP) 10-20 GLUCOSE (test code = GLU) mg/dL 74-106 BLOOD UREA NITROGEN (test code = BUN) mg/dL 7-18 GLOMERULAR FILTRATION RATE (test code = GFR) mL/min >=60 CREATININE (test code = CREAT) mg/dL 0.7-1.3 BUN/CREATININE RATIO (test code = BUN/CREA) 10-20 CALCIUM (test code = CA) mg/dL 8.5-10.1 HEPATIC FUNCTION [id number] 17:31:00* Test Item Value Reference Range Interpretation Comments TOTAL PROTEIN (test code = PROT) gram/dL 6.4-8.2 ALBUMIN (test code = ALB) g/dL 3.4-5.0 GLOBULIN (test code = GLOB) gram/dL 2.7-4.2 ALBUMIN/GLOBULIN RATIO (test code = A/G) 0.75-1.50 BILIRUBIN TOTAL (test code = BILT) mg/dL 0.0-1.0 BILIRUBIN DIRECT (test code = BILD) mg/dL 0.0-0.20 SGOT/AST (test code = AST) IUnit/L 15-37 SGPT/ALT (test code = ALT) IUnit/L 12-78 ALKALINE PHOSPHATASE TOTAL (test code = ALKP) IUnit/L 45-117 [id number] 17:31:00* Test Item Value Reference Range Interpretation Comments LIPASE (test code = LIP) U/L 73.0-393.0 [id number] 17:31:00* Test Item Value Reference Range Interpretation Comments TROPONIN-I (test code = TROPI) ng/mL 0-0.045 CBC W/O [id number] 17:12:00* Test Item Value Reference Range Interpretation Comments WHITE BLOOD CELL (test code = WBC) 7.7 K/mm3 4.5-12.5 N RED BLOOD CELL (test code = RBC) 4.05 mill/mm3 4.0-5.8 N HEMOGLOBIN (test code = HGB) 11.6 gram/dL 13.0-17.5 L HEMATOCRIT (test code = HCT) 35.3 % 42.0-52.0 L MEAN CELL VOLUME (test code = MCV) 87.2 fL 80-98 N MEAN CELL HGB (test code = MCH) 28.6 picogram 27.0-33.0 N MEAN CELL HGB CONCETRATION (test code = MCHC) 32.9 gram/dL 33.0-36. 0 L RED CELL DISTRIBUTION WIDTH (test code = RDW) 13.6 % 11.6-16. 2 N PLATELET COUNT (test code = PLT) 215 K/mm3 150-450 N MEAN PLATELET VOLUME (test code = MPV) 10.8 fL 6.7-11.0 N CBC W/O [id number] 17:12:00* Test Item Value Reference Range Interpretation Comments WHITE BLOOD CELL (test code = WBC) 7.7 K/mm3 4.5-12.5 N RED BLOOD CELL (test code = RBC) 4.05 mill/mm3 4.0-5.8 N HEMOGLOBIN (test code = HGB) 11.6 gram/dL 13.0-17.5 L HEMATOCRIT (test code = HCT) 35.3 % 42.0-52.0 L MEAN CELL VOLUME (test code = MCV) 87.2 fL 80-98 N MEAN CELL HGB (test code = MCH) 28.6 picogram 27.0-33.0 N MEAN CELL HGB CONCETRATION (test code = MCHC) 32.9 gram/dL 33.0-36. 0 L RED CELL DISTRIBUTION WIDTH (test code = RDW) 13.6 % 11.6-16. 2 N PLATELET COUNT (test code = PLT) 215 K/mm3 150-450 N MEAN PLATELET VOLUME (test code = MPV) 10.8 fL 6.7-11.0 N Magnesium [id number] 19:14:00* Test Item Value Reference Range Interpretation Comments Magnesium Level (test code = 58648-4) 1.0 1.3-2.1 LL Results repeated and called to TATYANA VARGAS at 1911 on 09/08/18 by ARCADIO BAILEY. Read back and verified.[facility]odium Level 2018-09-08 18:37:00* Test Item Value Reference Range Interpretation Comments Sodium Level (test code = 2951-2) 132 136-145 L [facility] HospitalPotassium [id number] 18:37:00* Test Item Value Reference Range Interpretation Comments Potassium Level (test code = 2823-3) 3.0 3.5-5.1 L [facility] HospitalChloride [id number] 18:37:00* Test Item Value Reference Range Interpretation Comments Chloride Level (test code = 2075-0) 97 98-107 L [facility] HospitalCarbon Dioxide [id number] 18:37:00* Test Item Value Reference Range Interpretation Comments Carbon Dioxide Level (test code = 2028-9) 24 22-29 [facility] HospitalAnion [id number] 18:37:00* Test Item Value Reference Range Interpretation Comments Anion Gap (test code = 00155-4) 14.0 8-16 [facility] HospitalBlood Urea [id number] 18:37:00* Test Item Value Reference Range Interpretation Comments Blood Urea Nitrogen (test code = 3094-0) 9 7-26 [facility] HospitalCreatinine2019-06-11 18:37:00* Test Item Value Reference Range Interpretation Comments Creatinine (test code = 2160-0) 1.01 0.72-1.25 [facility] HospitalBUN/Creatinine [id number] 18:37:00* Test Item Value Reference Range Interpretation Comments BUN/Creatinine Ratio (test code = 3097-3) 9 6-25 [facility] HospitalEstimat Glomerular Filtration Rate 2018-09-08 18:37:00* Test Item Value Reference Range Interpretation Comments Estimat Glomerular Filtration Rate (test code = 020345158) > 60 >60 Ranges were taken from the National Kidney Disease Education Program and the [facility] Foundation literature.Reference ranges:60 or greater: Lyufmo24-12 ( for 3 consecutive months): Chronic kidney disease 15 or less: Kidney failureCHI [facility] – HarlingenGlucose [id number] 18:37:00* Test Item Value Reference Range Interpretation Comments Glucose Level (test code = GEA1084) 236 74-118 H [facility] HospitalCalcium Dmelf8212-11-16 18:37:00* Test Item Value Reference Range Interpretation Comments Calcium Level (test code = 09008-5) 8.3 8.4-10.2 L [facility] HospitalTotal [id number] 18:37:00* Test Item Value Reference Range Interpretation Comments Total Bilirubin (test code = 1975-2) 0.7 0.2-1.2 [facility] HospitalAspartate Amino Transf (AST/SGOT) 2018-09-08 18:37:00* Test Item Value Reference Range Interpretation Comments Aspartate Amino Transf (AST/SGOT) (test code = Aspartate Amino Transf (AST/SGOT)) 17 5-34 [facility] HospitalAlanine Aminotransferase (ALT/SGPT) 2018-09-08 18:37:00* Test Item Value Reference Range Interpretation Comments Alanine Aminotransferase (ALT/SGPT) (test code = 1742-6) 18 0-55 [facility] HospitalTotal [id number] 18:37:00* Test Item Value Reference Range Interpretation Comments Total Protein (test code = 2885-2) 6.5 6.5-8.1 [facility] HospitalAlbumin2019-06-11 18:37:00* Test Item Value Reference Range Interpretation Comments Albumin (test code = 1751-7) 3.5 3.5-5.0 [facility] HospitalGlobulin2019-06-11 18:37:00* Test Item Value Reference Range Interpretation Comments Globulin (test code = 33233-8) 3.0 2.3-3.5 [facility] HospitalAlbumin/Globulin [id number] 18:37:00 * Test Item Value Reference Range Interpretation Comments Albumin/Globulin Ratio (test code = 1759-0) 1.2 0.8-2.0 [facility] HospitalAlkaline Nekxewyriiv5232-52-67 18:37:00* Test Item Value Reference Range Interpretation Comments Alkaline Phosphatase (test code = 6768-6) 71 40-150 [facility] HospitalAmylase [id number] 18:37:00* Test Item Value Reference Range Interpretation Comments Amylase Level (test code = 1798-8) 48 25-125 [facility] HospitalLipase2019-06-11 18:37:00* Test Item Value Reference Range Interpretation Comments Lipase (test code = 3040-3) 58 8-78 [facility] HospitalAmylase Ogfma9547-73-93 18:37:00* Test Item Value Reference Range Interpretation Comments Amylase Level (test code = 1798-8) 48 25-125 [facility] HospitalLipase2019-06-11 18:37:00* Test Item Value Reference Range Interpretation Comments Lipase (test code = 3040-3) 58 8-78 [facility] HospitalAmylase Uwcfy3224-02-36 18:37:00* Test Item Value Reference Range Interpretation Comments Amylase Level (test code = 1798-8) 48 25-125 [facility] HospitalLipase2019-06-11 18:37:00* Test Item Value Reference Range Interpretation Comments Lipase (test code = 3040-3) 58 8-78 [facility] HospitalWhite Blood Pipaz3760-27-59 18:19:00* Test Item Value Reference Range Interpretation Comments White Blood Count (test code = 6690-2) 9.18 4.8-10.8 [facility] HospitalRed Blood Lwupv9150-41-30 18:19:00* Test Item Value Reference Range Interpretation Comments Red Blood Count (test code = 789-8) 3.52 4.3-5.7 L [facility] HospitalHemoglobin2019-06-11 18:19:00* Test Item Value Reference Range Interpretation Comments Hemoglobin (test code = 92916-7) 10.4 14.0-18.0 L [facility] HospitalHematocrit2019-06-11 18:19:00* Test Item Value Reference Range Interpretation Comments Hematocrit (test code = 4544-3) 29.6 38.2-49.6 L [facility] HospitalMean Corpuscular Zfyzjm3565-20-37 18:19:00* Test Item Value Reference Range Interpretation Comments Mean Corpuscular Volume (test code = 787-2) 84.1 81-99 [facility] HospitalMean Corpuscular Ciidqrjzyu8127-12-64 18:19:00* Test Item Value Reference Range Interpretation Comments Mean Corpuscular Hemoglobin (test code = 785-6) 29.5 28-32 [facility] HospitalMean Corpuscular Hemoglobin Concent 2018-09-08 18:19:00* Test Item Value Reference Range Interpretation Comments Mean Corpuscular Hemoglobin Concent (test code = 786-4) 35.1 31-35 H [facility] HospitalRed Cell Distribution [id number] 18:19:00* Test Item Value Reference Range Interpretation Comments Red Cell Distribution Width (test code = 52236-0) 13.9 11.7 -14.4 [facility] HospitalPlatelet Fbdhd1777-23-76 18:19:00* Test Item Value Reference Range Interpretation Comments Platelet Count (test code = 777-3) 157 140-360 [facility] HospitalNeutrophils (%) (Auto)2018-09-08 18:19:00 * Test Item Value Reference Range Interpretation Comments Neutrophils (%) (Auto) (test code = 06012-1) 63.5 38.7-80.0 [facility] HospitalLymphocytes (%) (Auto)2018-09-08 18:19:00 * Test Item Value Reference Range Interpretation Comments Lymphocytes (%) (Auto) (test code = 736-9) 19.2 18.0-39.1 [facility] HospitalMonocytes (%) (Auto)2018-09-08 18:19:00* Test Item Value Reference Range Interpretation Comments Monocytes (%) (Auto) (test code = 5905-5) 14.7 4.4-11.3 H [facility] HospitalEosinophils (%) (Auto)2018-09-08 18:19:00 * Test Item Value Reference Range Interpretation Comments Eosinophils (%) (Auto) (test code = 713-8) 0.3 0.0-6.0 [facility] HospitalBasophils (%) (Auto)2018-09-08 18:19:00* Test Item Value Reference Range Interpretation Comments Basophils (%) (Auto) (test code = 706-2) 0.4 0.0-1.0 [facility] HospitalIM GRANULOCYTES %2018-09-08 18:19:00* Test Item Value Reference Range Interpretation Comments IM GRANULOCYTES % (test code = IM GRANULOCYTES %) 1.9 0.0- 1.0 H [facility] HospitalNeutrophils # (Auto)2018-09-08 18:19:00* Test Item Value Reference Range Interpretation Comments Neutrophils # (Auto) (test code = 751-8) 5.8 2.1-6.9 [facility] HospitalLymphocytes # (Auto)2018-09-08 18:19:00* Test Item Value Reference Range Interpretation Comments Lymphocytes # (Auto) (test code = 32624-9) 1.8 1.0-3.2 [facility] HospitalMonocytes # (Auto)2018-09-08 18:19:00* Test Item Value Reference Range Interpretation Comments Monocytes # (Auto) (test code = 742-7) 1.4 0.2-0.8 H [facility] HospitalEosinophils # (Auto)2018-09-08 18:19:00* Test Item Value Reference Range Interpretation Comments Eosinophils # (Auto) (test code = 711-2) 0.0 0.0-0.4 [facility] HospitalBasophils # (Auto)2018-09-08 18:19:00* Test Item Value Reference Range Interpretation Comments Basophils # (Auto) (test code = 704-7) 0.0 0.0-0.1 [facility] HospitalAbsolute Immature Granulocyte (auto 2018-09-08 18:19:00* Test Item Value Reference Range Interpretation Comments Absolute Immature Granulocyte (auto (jordon t code = Absolute Immature Granulocyte (auto) 0.17 0-0.1 H [facility] Cnsdlrx9176-44-83 11:53:00* Test Item Value Reference Range Interpretation Comments Bedside Glucose (test code = 87091-1) 194 70-120 H Meter ID: [id number] General Hospital Glucose 2018-09-07 16:31:00* Test Item Value Reference Range Interpretation Comments Bedside Glucose (test code = 15522-9) 200 70-120 H Meter ID: [id number] [facility] The [facility] of Texasodium Level 2018-09-07 05:28:00* Test Item Value Reference Range Interpretation Comments Sodium Level (test code = 2951-2) 139 136-145 [facility] HospitalPotassium Ieegs2165-83-94 05:28:00* Test Item Value Reference Range Interpretation Comments Potassium Level (test code = 2823-3) 3.2 3.5-5.1 L [facility] HospitalChloride Zyatm1031-72-03 05:28:00* Test Item Value Reference Range Interpretation Comments Chloride Level (test code = 2075-0) 108 98-107 H [facility] HospitalCarbon Dioxide Vanay6923-02-62 05:28:00* Test Item Value Reference Range Interpretation Comments Carbon Dioxide Level (test code = 2028-9) 22 22-29 [facility] HospitalAnion Viz7490-63-02 05:28:00* Test Item Value Reference Range Interpretation Comments Anion Gap (test code = 42248-2) 12.2 8-16 [facility] HospitalBlood Urea Qiuwvlfd9938-93-06 05:28:00* Test Item Value Reference Range Interpretation Comments Blood Urea Nitrogen (test code = 3094-0) 12 - [facility] HospitalCreatinine2019-06-10 05:28:00* Test Item Value Reference Range Interpretation Comments Creatinine (test code = 2160-0) 0.93 0.72-1.25 [facility] HospitalBUN/Creatinine Ittzj3063-01-01 05:28:00* Test Item Value Reference Range Interpretation Comments BUN/Creatinine Ratio (test code = 3097-3) 13 09-22 [facility] HospitalEstimat Glomerular Filtration Rate 2018-09-07 05:28:00* Test Item Value Reference Range Interpretation Comments Estimat Glomerular Filtration Rate (test code = 390658552) > 60 >60 Ranges were taken from the National Kidney Disease Education Program and the [facility] literature.Reference ranges:60 or greater: Jidjzt08-90 ( for 3 consecutive months): Chronic kidney disease 15 or less: Kidney failureMemorial Hermann Sugar [facility] HospitalGlucose Tatkt3950-95-82 05:28:00* Test Item Value Reference Range Interpretation Comments Glucose Level (test code = YBV8982) 104 74-118 [facility] HospitalCalcium Hzigd8359-82-14 05:28:00* Test Item Value Reference Range Interpretation Comments Calcium Level (test code = 48813-2) 8.0 8.4-10.2 L [facility] HospitalWhite Blood Egfva3889-08-67 05:08:00* Test Item Value Reference Range Interpretation Comments White Blood Count (test code = 6690-2) 8.90 4.8-10.8 [facility] HospitalRed Blood Wciuj3300-06-99 05:08:00* Test Item Value Reference Range Interpretation Comments Red Blood Count (test code = 789-8) 3.14 4.3-5.7 L [facility] HospitalHemoglobin2019-06-10 05:08:00* Test Item Value Reference Range Interpretation Comments Hemoglobin (test code = 93050-1) 9.3 14.0-18.0 L [facility] HospitalHematocrit2019-06-10 05:08:00* Test Item Value Reference Range Interpretation Comments Hematocrit (test code = 4544-3) 27.4 38.2-49.6 L [facility] HospitalMean Corpuscular Pgqnyx8132-42-69 05:08:00* Test Item Value Reference Range Interpretation Comments Mean Corpuscular Volume (test code = 787-2) 87.3 81-99 [facility] HospitalMean Corpuscular Faqnhnhyai5965-48-97 05:08:00* Test Item Value Reference Range Interpretation Comments Mean Corpuscular Hemoglobin (test code = 785-6) 29.6 28-32 [facility] Hem[facility] Concent 2018-09-07 05:08:00* Test Item Value Reference Range Interpretation Comments Mean Corpuscular Hemoglobin Concent (test code = 786-4) 33.9 31-35 [facility] HospitalRed Cell Distribution Giugc2120-66-63 05:08:00* Test Item Value Reference Range Interpretation Comments Red Cell Distribution Width (test code = 53733-0) 14.3 11.7 -14.4 [facility] HospitalPlatelet Lsusw1294-31-85 05:08:00* Test Item Value Reference Range Interpretation Comments Platelet Count (test code = 777-3) 142 140-360 [facility] HospitalNeutrophils (%) (Auto)2018-09-07 05:08:00 * Test Item Value Reference Range Interpretation Comments Neutrophils (%) (Auto) (test code = 47278-2) 59.3 38.7-80.0 [facility] HospitalLymphocytes (%) (Auto)2018-09-07 05:08:00 * Test Item Value Reference Range Interpretation Comments Lymphocytes (%) (Auto) (test code = 736-9) 22.6 18.0-39.1 [facility] HospitalMonocytes (%) (Auto)2018-09-07 05:08:00* Test Item Value Reference Range Interpretation Comments Monocytes (%) (Auto) (test code = 5905-5) 15.3 4.4-11.3 H [facility] HospitalEosinophils (%) (Auto)2018-09-07 05:08:00 * Test Item Value Reference Range Interpretation Comments Eosinophils (%) (Auto) (test code = 713-8) 0.8 0.0-6.0 [facility] HospitalBasophils (%) (Auto)2018-09-07 05:08:00* Test Item Value Reference Range Interpretation Comments Basophils (%) (Auto) (test code = 706-2) 0.4 0.0-1.0 [facility] HospitalIM GRANULOCYTES %2018-09-07 05:08:00* Test Item Value Reference Range Interpretation Comments IM GRANULOCYTES % (test code = IM GRANULOCYTES %) 1.6 0.0- 1.0 H [facility] HospitalNeutrophils # (Auto)2018-09-07 05:08:00* Test Item Value Reference Range Interpretation Comments Neutrophils # (Auto) (test code = 751-8) 5.3 2.1-6.9 [facility] HospitalLymphocytes # (Auto)2018-09-07 05:08:00* Test Item Value Reference Range Interpretation Comments Lymphocytes # (Auto) (test code = 69900-4) 2.0 1.0-3.2 [facility] HospitalMonocytes # (Auto)2018-09-07 05:08:00* Test Item Value Reference Range Interpretation Comments Monocytes # (Auto) (test code = 742-7) 1.4 0.2-0.8 H [facility] HospitalEosinophils # (Auto)2018-09-07 05:08:00* Test Item Value Reference Range Interpretation Comments Eosinophils # (Auto) (test code = 711-2) 0.1 0.0-0.4 [facility] HospitalBasophils # (Auto)2018-09-07 05:08:00* Test Item Value Reference Range Interpretation Comments Basophils # (Auto) (test code = 704-7) 0.0 0.0-0.1 [facility] HospitalAbsolute Immature Granulocyte (auto 2018-09-07 05:08:00* Test Item Value Reference Range Interpretation Comments Absolute Immature Granulocyte (auto (jordon t code = Absolute Immature Granulocyte (auto) 0.14 0-0.1 H [facility] HospitalClostridium Difficile Toxin A & B 2018-09-05 11:28:00* Test Item Value Reference Range Interpretation Comments Clostridium Difficile Toxin A & B (test code = 907170398) NEGATIVE NEGATIVE Testing on stool aspirate specimens is outside business programmer claims since specime n type not validated on this assay.[facility] Clostridium Difficile Toxin A & [id number] 11:28:00* Test Item Value Reference Range Interpretation Comments Clostridium Difficile Toxin A & B (test code = 894066513) NEGATIVE NEGATIVE Testing on stool aspirate specimens is outside business programmer claims since specime n type not validated on this assay.[facility] Clostridium Difficile Toxin A & L5723-87-97 11:28:00* Test Item Value Reference Range Interpretation Comments Clostridium Difficile Toxin A & B (test code = 336779158) NEGATIVE NEGATIVE Testing on stool aspirate specimens is outside business programmer claims since specime n type not validated on this assay.[facility] Clostridium Difficile Toxin A & F1661-83-26 11:28:00* Test Item Value Reference Range Interpretation Comments Clostridium Difficile Toxin A & B (test code = 778275289) NEGATIVE NEGATIVE Testing on stool aspirate specimens is outside business programmer claims since specime n type not validated on this assay.[facility] HospitalTotal Eqqlmtfym0798-10-21 05:23:00* Test Item Value Reference Range Interpretation Comments Total Bilirubin (test code = 1975-2) 0.5 0.2-1.2 [facility] HospitalAspartate Amino Transf (AST/SGOT) 2018-09-05 05:23:00* Test Item Value Reference Range Interpretation Comments Aspartate Amino Transf (AST/SGOT) (test code = Aspartate Amino Transf (AST/SGOT)) 14 5-34 [facility] HospitalAlanine Aminotransferase (ALT/SGPT) 2018-09-05 05:23:00* Test Item Value Reference Range Interpretation Comments Alanine Aminotransferase (ALT/SGPT) (test code = 1742-6) 14 0-55 [facility] HospitalTotal Hoeniex8908-14-18 05:23:00* Test Item Value Reference Range Interpretation Comments Total Protein (test code = 2885-2) 6.4 6.5-8.1 L [facility] HospitalAlbumin2019-06-08 05:23:00* Test Item Value Reference Range Interpretation Comments Albumin (test code = 1751-7) 3.6 3.5-5.0 [facility] HospitalGlobulin2019-06-08 05:23:00* Test Item Value Reference Range Interpretation Comments Globulin (test code = 28782-7) 2.8 2.3-3.5 [facility] HospitalAlbumin/Globulin Gdfjo4102-83-44 05:23:00 * Test Item Value Reference Range Interpretation Comments Albumin/Globulin Ratio (test code = 1759-0) 1.3 0.8-2.0 [facility] HospitalAlkaline Dgeftpjuels7477-67-59 05:23:00* Test Item Value Reference Range Interpretation Comments Alkaline Phosphatase (test code = 6768-6) 67 40-150 [facility] HospitalLactic Acid Pbvef3889-40-98 01:40:00* Test Item Value Reference Range Interpretation Comments Lactic Acid Level (test code = Lactic Acid Level) 17.3 4.5- 19.8 [facility] HospitalLactic Acid Fnbqb5066-77-51 01:40:00* Test Item Value Reference Range Interpretation Comments Lactic Acid Level (test code = Lactic Acid Level) 17.3 4.5- 19.8 [facility] HospitalCT ABDOMEN/PELVIS X2825-05-56 18:13:00 [place] [address] Patient Name: SHAHRIAR LEAL MR #: [id number] : 1940 Age/Sex: 77/M Req #: [id number] Adm Physician: Ordered by: BRI RENEE MD Report #: [id number] Location: ER Room/Bed: Procedure: [id number] CT /CT ABDOMEN/PELVIS W Exam Date: 09/04/18 Exam Time: 1720 REPORT STATUS: Signed EXAMI NATION: CT of the abdomen and pelvis with contrast. TECHNIQUE: Helical C T images of the abdomen and pelvis were performed from the lung bases to the l nii trochanters after the intravenous administration of 150 cc of Isovue 300 and the oral administration of none. Coronal and sagittal reformatted images were obtained.Dose modulation, iterative reconstruction, and/or weight based adjustment of the mA/kV was utilized to reduce the radiation dose to as low as reasonably achievable. COMPARISON: None. CLINICAL HISTORY:Abdominal pain, vomiting DISCUSSION: ABDOMEN/PELVIS: LOWER THORAX:Lung base atelectasis. HEPATOBILIARY: No focal hepatic lesions. No intra-or ex trahepatic biliary ductal dilation. The gallbladder is normal. SPLEEN : No splenomegaly. PANCREAS: No focal masses or ductal dilatation. AD RENALS: No adrenal nodules. KIDNEYS/URETERS: Multiple cysts within the righ t kidney. No obstruction. No calculi. PELVIC ORGANS/BLADDER: Prostate enl arged measuring 6.4 cm transverse dimension. PERITONEUM/RETROPERITONEUM: No free air or fluid. LYMPH NODES: No intra-abdominal, retroperitoneal, pelvic or inguinal lymphadenopathy. VESSELS: Unremarkable. GI TRACT: No o bstruction. Colonic diverticulosis without inflammatory change. BONES AND S OFT TISSUE: Multilevel lumbar spondylosis. IMPRESSION: No acute CT finding. Signed by: Dr. Naida Dixon M.D. on 09/04/2018 6:17 PM Dictated By: NAIDA DIXON MD 16 Transcribed By: TIANA on 09/04/181816 COPY TO: BRI SIU MD Urine NCL8396-24-95 15:15:00* Test Item Value Reference Range Interpretation Comments Urine WBC (test code = 5821-4) NONE 0-5 [facility] HNC6790-57-52 15:15:00* Test Item Value Reference Range Interpretation Comments Urine RBC (test code = 19513-5) 0-5 0-5 [facility] Jncnoiju7634-09-44 15:15:00* Test Item Value Reference Range Interpretation Comments Urine Bacteria (test code = 90948-9) MANY NONE H [facility] Epithelial Dtghu3031-94-01 15:15:00 * Test Item Value Reference Range Interpretation Comments Urine Epithelial Cells (test code = 67461-2) NONE NONE [facility] Amorphous Fxcmhocw3268-56-22 15:15:00* Test Item Value Reference Range Interpretation Comments Urine Amorphous Sediment (test code = 8246-1) MODERATE FEW H [facility] OCX8268-54-13 15:15:00* Test Item Value Reference Range Interpretation Comments Urine WBC (test code = 5821-4) NONE 0-5 [facility] WMR3845-63-54 15:15:00* Test Item Value Reference Range Interpretation Comments Urine RBC (test code = 92721-0) 0-5 0-5 [facility] Cjihzkpg1622-46-50 15:15:00* Test Item Value Reference Range Interpretation Comments Urine Bacteria (test code = 04853-6) MANY NONE H [facility] HospitalUrine Epithelial Iwggp4792-66-58 15:15:00 * Test Item Value Reference Range Interpretation Comments Urine Epithelial Cells (test code = 91602-5) NONE NONE [facility] Amorphous Mfotsyuk7192-55-55 15:15:00* Test Item Value Reference Range Interpretation Comments Urine Amorphous Sediment (test code = 8246-1) MODERATE FEW H [facility] Amorphous Baaomgbg0842-78-65 15:15:00* Test Item Value Reference Range Interpretation Comments Urine Amorphous Sediment (test code = 8246-1) MODERATE FEW H [facility] Amorphous Rwepnrii8511-46-31 15:15:00* Test Item Value Reference Range Interpretation Comments Urine Amorphous Sediment (test code = 8246-1) MODERATE FEW H [facility] HospitalUrine Cwife8853-69-49 15:01:00* Test Item Value Reference Range Interpretation Comments Urine Color (test code = 5778-6) YELLOW YELLOW [facility] HospitalUrine Odlwjhd7713-95-49 15:01:00* Test Item Value Reference Range Interpretation Comments Urine Clarity (test code = 75443-9) SL CLOUDY CLEAR H [facility] HospitalUrine Specific Idxtbzb5703-43-45 15:01:00 * Test Item Value Reference Range Interpretation Comments Urine Specific [place] (test code = 5811-5) 1.020 1.010-1.02 5 [facility] HospitalUrine uA0621-05-07 15:01:00* Test Item Value Reference Range Interpretation Comments Urine pH (test code = 48060-2) 6 5-7 [facility] HospitalUrine Leukocyte Ugtmeovo6923-43-47 15:01:00* Test Item Value Reference Range Interpretation Comments Urine Leukocyte Esterase (test code = 22323-9) NEGATIVE NEGATIV E [facility] HospitalUrine Zwfpmqc3103-75-68 15:01:00* Test Item Value Reference Range Interpretation Comments Urine Nitrite (test code = 53291-5) NEGATIVE NEGATIVE [facility] HospitalUrine Oemjotf6181-47-55 15:01:00* Test Item Value Reference Range Interpretation Comments Urine Protein (test code = 03730-8) 1+ NEGATIVE H [facility] HospitalUrine Glucose (UA)2018-09-04 15:01:00* Test Item Value Reference Range Interpretation Comments Urine Glucose (UA) (test code = 40048-0) 3+ NEGATIVE [facility] HospitalUrine Cmhutpz6794-51-80 15:01:00* Test Item Value Reference Range Interpretation Comments Urine Ketones (test code = 17765-0) 2+ NEGATIVE H [facility] Yrjmolbfiyen4147-64-38 15:01:00* Test Item Value Reference Range Interpretation Comments Urine Urobilinogen (test code = 99483-4) 0.2 0.2-1 [facility] HospitalUrine Gellaztie5683-23-50 15:01:00* Test Item Value Reference Range Interpretation Comments Urine Bilirubin (test code = 1977-8) NEGATIVE NEGATIVE [facility] Kgscl8976-69-72 15:01:00* Test Item Value Reference Range Interpretation Comments Urine Blood (test code = 74789-2) TRACE NEGATIVE H [facility] Rqjik9974-62-49 15:01:00* Test Item Value Reference Range Interpretation Comments Urine Color (test code = 5778-6) YELLOW YELLOW [facility] Pnpsosi8469-39-98 15:01:00* Test Item Value Reference Range Interpretation Comments Urine Clarity (test code = 39276-8) SL CLOUDY CLEAR H [facility] Specific Fvjaprn3519-31-40 15:01:00 * Test Item Value Reference Range Interpretation Comments Urine Specific [place] (test code = 5811-5) 1.020 1.010-1.02 5 [facility] aZ7174-32-60 15:01:00* Test Item Value Reference Range Interpretation Comments Urine pH (test code = 98849-4) 6 5-7 [facility] HospitalU[facility] Leukocyte Beuerwmc9817-07-99 15:01:00* Test Item Value Reference Range Interpretation Comments Urine Leukocyte Esterase (test code = 73689-2) NEGATIVE NEGATIV E [facility] Wxuouod8820-58-22 15:01:00* Test Item Value Reference Range Interpretation Comments Urine Nitrite (test code = 58152-3) NEGATIVE NEGATIVE [facility] Qmzzbor5045-74-58 15:01:00* Test Item Value Reference Range Interpretation Comments Urine Protein (test code = 99436-3) 1+ NEGATIVE H [facility] HospitalUrine Glucose (UA)2018-09-04 15:01:00* Test Item Value Reference Range Interpretation Comments Urine Glucose (UA) (test code = 15374-6) 3+ NEGATIVE [facility] Svutndg3601-08-15 15:01:00* Test Item Value Reference Range Interpretation Comments Urine Ketones (test code = 19192-4) 2+ NEGATIVE H [facility] HospitalU[facility] Szxpyozmvczp3717-63-03 15:01:00* Test Item Value Reference Range Interpretation Comments Urine Urobilinogen (test code = 43007-3) 0.2 0.2-1 [facility] HospitalUrine Sjqxxsprs8466-92-75 15:01:00* Test Item Value Reference Range Interpretation Comments Urine Bilirubin (test code = 1977-8) NEGATIVE NEGATIVE [facility] HospitalUrine Tmdbs4588-39-83 15:01:00* Test Item Value Reference Range Interpretation Comments Urine Blood (test code = 53113-7) TRACE NEGATIVE H [facility] HospitalCHEST SINGLE (PORTABLE)2018-09-04 15:01:00 [facility] [address] [place] [address] Patient Name: SHAHRIAR LEAL MR #: [id number] : 1940 Age/Sex: 77/M Req #: [id number] Adm Physician: Ordered by: BRI RENEE MD Report #: [id number] Location: ER Room/Bed: Procedure: [id number] DX /CHEST SINGLE (PORTABLE) Exam Date: Exam Time: REPORT STATUS: Signed Examination: Single AP view of the chest. COMPARISON: None. INDICATION: Vomiting DISCUSSION: Lines/tubes: Multi lead cardiac device. Lungs: T he lungs are well inflated and clear. No pneumonia or pulmonary edema. Pleu ra: No pleural effusion or pneumothorax. Heart and mediastinum: The heart and the mediastinum are unremarkable. Bones and soft tissues: No acute ching ny abnormalities. IMPRESSION: 1. No acute cardiopulmonary abno rmalities. Signed by: Dr. Naida Dixon M.D. on 09/04/2018 3:02 PM D ictated By: NAIDA DIXON MD 1502 COPY TO: BRI KIRKLAND MD B-Type Natriuretic Aorpgcu7421-86-21 15:00:00* Test Item Value Reference Range Interpretation Comments B-Type Natriuretic Peptide (test code = 72657-1) 79.5 0-100 [facility] HospitalB-Type Natriuretic Ygoxdnq1539-97-72 15:00:00* Test Item Value Reference Range Interpretation Comments B-Type Natriuretic Peptide (test code = 73648-9) 79.5 0-100 [facility] HospitalCreatine Dtxbsm9077-03-59 14:51:00* Test Item Value Reference Range Interpretation Comments Creatine Kinase (test code = 2157-6) 50 30-200 [facility] HospitalCreatine Kinase IZ9103-88-83 14:51:00* Test Item Value Reference Range Interpretation Comments Creatine Kinase MB (test code = 15365-9) 0.90 0-5.0 [facility] HospitalTroponin Q0899-46-65 14:51:00* Test Item Value Reference Range Interpretation Comments Troponin I (test code = RPD3530) 0.009 0-0.300 [facility] HospitalLipase2019-06-07 14:51:00* Test Item Value Reference Range Interpretation Comments Lipase (test code = 3040-3) 31 8-78 [facility] HospitalCreatine Gqbvdl8433-80-98 14:51:00* Test Item Value Reference Range Interpretation Comments Creatine Kinase (test code = 2157-6) 50 30-200 [facility] HospitalCreatine Kinase CT3901-49-96 14:51:00* Test Item Value Reference Range Interpretation Comments Creatine Kinase MB (test code = 98526-9) 0.90 0-5.0 [facility] HospitalTroponin X9675-63-48 14:51:00* Test Item Value Reference Range Interpretation Comments Troponin I (test code = LNV7971) 0.009 0-0.300 [facility] HospitalWdelaware [facility] the [facility] Knortmf1902-78-26 10:42:00* Test Item Value Reference Range Interpretation Comments Wound Culture (test code = 6462-6) Organism: STAPHYLOCOCCUS AUREUS- MRSA [facility] Tjpevbo2308-48-17 10:42:00* Test Item Value Reference Range Interpretation Comments Wound Culture (test code = 6462-6) Organism: STAPHYLOCOCCUS AUREUS- MRSA [facility] HospitalBedside Ujqicmn0679-04-71 11:37:00* Test Item Value Reference Range Interpretation Comments Bedside Glucose (test code = 31819-2) 104 70-120 Meter ID: [id number] Hermann Sugar [facility] HospitalClostridium Difficile Toxin A & K8318-94-46 16:44:00* Test Item Value Reference Range Interpretation Comments Clostridium Difficile Toxin A & B (test code = 827513267) NEGATIVE NEGATIVE Testing on stool aspirate specimens is outside business programmer claims since specime n type not validated on this assay.[facility] HospitalC- Reactive Srdxdqz3201-04-06 14:20:00* Test Item Value Reference Range Interpretation Comments C-Reactive Protein (test code = 1987-07) 18.0 0.0-4.9 H Performed at: [employer] [id number] Director: Manuel Nava MD, Phone: [phone] Hermann Sugar Land HospitalC-Reactive Achfovj7316-46-20 14:20:00* Test Item Value Reference Range Interpretation Comments C-Reactive Protein (test code = 1987-07) 18.0 0.0-4.9 H Performed at: [employer] [id number] Director: Manuel Nava MD, Phone: [phone] Hermann Sugar Land HospitalC-Reactive Lruascp8705-37-41 14:20:00* Test Item Value Reference Range Interpretation Comments C-Reactive Protein (test code = 1987-07) 18.0 0.0-4.9 H Performed at: [employer] [id number] Director: Manuel Nava MD, Phone: [phone] Hermann Sugar Land HospitalC-Reactive Cbsdbdn0782-72-32 14:20:00* Test Item Value Reference Range Interpretation Comments C-Reactive Protein (test code = 1987-5) 18.0 0.0-4.9 H Performed at: - [employer] [id number] Director: Manuel Nava MD, Phone: [phone] Hermann Sugar Land HospitalC-Reactive Meardgh5339-41-68 14:20:00* Test Item Value Reference Range Interpretation Comments C-Reactive Protein (test code = 1987-) 18.0 0.0-4.9 H Performed at: - [facility] [id number] Director: Manuel Nava MD, Phone: [phone] Hermann Sugar [facility] HospitalWound Qgaprdz8911-98-10 09:36:00* Test Item Value Reference Range Interpretation Comments Wound Culture (test code = 6462-6) Organism: STAPHYLOCOCCUS AUREUS- MRSA [facility] HospitalVancomycin Level Trkqxa2055-31-73 19:13:00* Test Item Value Reference Range Interpretation Comments Vancomycin Level Trough (test code = 4092-3) 19.5 5.0-10.0 HH Results repeated and called to CONSTANZA YEBOAH at 1911 on 06/24/18 by [facility]. Read back and verified.[facility] HospitalVancomycin Level Psdvis8720-52-32 19:13:00* Test Item Value Reference Range Interpretation Comments Vancomycin Level Trough (test code = 4092-3) 19.5 5.0-10.0 HH Results repeated and called to CONSTANZA YEBOAH at 191106/24/18 by [facility]. Read back and verified.[facility] HospitalVancomycin Level Galcvx0563-64-18 19:13:00* Test Item Value Reference Range Interpretation Comments Vancomycin Level Trough (test code = 4092-3) 19.5 5.0-10.0 HH Results repeated and called to CONSTANZA YEBOAH at 191106/24/18 by ARCADIO PEDERSON. Read back and verified.[facility] HospitalErythrocyte Sedimentation Wyez1082-93-76 08:27:00* Test Item Value Reference Range Interpretation Comments Erythrocyte Sedimentation Rate (test code = 4537-7) 28 0- 13 H [facility] HospitalErythrocyte Sedimentation Ubyo3611-88-93 08:27:00* Test Item Value Reference Range Interpretation Comments Erythrocyte Sedimentation Rate (test code = 4537-7) 28 0- 13 H [facility] HospitalErythrocyte Sedimentation Sqhe1460-03-10 08:27:00* Test Item Value Reference Range Interpretation Comments Erythrocyte Sedimentation Rate (test code = 4537-7) 28 0- 13 [facility]odium Hjtor0035-95-93 05:44:00* Test Item Value Reference Range Interpretation Comments Sodium Level (test code = 2951-2) 135 136-145 L [facility] HospitalPotassium Klmpp5962-35-98 05:44:00* Test Item Value Reference Range Interpretation Comments Potassium Level (test code = 2823-3) 3.5 3.5-5.1 [facility] HospitalChloride Rtqzh3978-73-64 05:44:00* Test Item Value Reference Range Interpretation Comments Chloride Level (test code = 2075-0) 105 98-107 [facility] HospitalCarbon Dioxide Eujsz4000-87-29 05:44:00* Test Item Value Reference Range Interpretation Comments Carbon Dioxide Level (test code = 2028-9) 23 22- [facility] HospitalAnion Itv6855-95-00 05:44:00* Test Item Value Reference Range Interpretation Comments Anion Gap (test code = 24164-3) 10.5 8-16 [facility] HospitalBlood Urea [place]3969-18-05 05:44:00* Test Item Value Reference Range Interpretation Comments Blood Urea Nitrogen (test code = 3094-0) 22 7-26 [facility] HospitalCreatinine2019-03-27 05:44:00* Test Item Value Reference Range Interpretation Comments Creatinine (test code = 2160-0) 1.09 0.72-1.25 [facility] HospitalBUN/Creatinine Jcxbk8861-45-32 05:44:00* Test Item Value Reference Range Interpretation Comments BUN/Creatinine Ratio (test code = 3097-3) 20 09-22 [facility] HospitalEstimat Glomerular Filtration Rate 2018-06-24 05:44:00* Test Item Value Reference Range Interpretation Comments Estimat Glomerular Filtration Rate (test code = 011364601) > 60 >60 Ranges were taken from the National Kidney Disease Education Program and the [facility] [employer] literature.Reference ranges:60 or greater: Ysivlk31-19 ( for 3 consecutive months): Chronic kidney disease 15 or less: Kidney failureCHI Valley Baptist Medical Center – HarlingenGlucose Egidb5438-14-39 05:44:00* Test Item Value Reference Range Interpretation Comments Glucose Level (test code = RCV3488) 50 74-118 LL Results repeated and called to RITCHIE SWARTZ RN at 0543 on 06/24/18 by Darrius wells Read back and verified.[facility] HospitalCalcium Level 2018-06-24 05:44:00* Test Item Value Reference Range Interpretation Comments Calcium Level (test code = 99252-6) 8.2 8.4-10.2 L [facility] HospitalFOOT RIGHT FIHVOJLW9052-80-72 19:31:00 [facility] [address] [address] Patient Name: SHAHRIAR LEAL MR #: [id number] : 1940 Age/Sex: 77/M Req #: [id number] Adm Physician: SHERIDAN MAHONEY MD Ordered by: APOLLO HAGAN MD Report #: [id number] Location: [facility] Room/Bed: [place] [address] Procedure: [id number] DX/ FOOT RIGHT COMPLETE Exam Date: 06/23/18 Exam Time: 1 820 REPORT STATUS: Signed Foot c chynalete CPT code: 71406 Indication: Infection 3 view [id number] 1820 Technique: Portable A.P., oblique and lateral views of the right foot obtained. Comparison: None Findings: There are prominent plantar s purs. There are hslo-xo-mrnejqck degenerative changes of the tibiotalar joint and midfoot. There is a mildly displaced fracture through the base of the prox imal phalanx of the first digit with extension to the articular surface. There are degenerative changes of the IP joint of the first digit. There is no evid ence of periosteal new bone formation or skin ulceration. Multiple arter ial calcifications are present throughout the soft tissues. No skin ulceration is appreciated or evidence of subcutaneous emphysema. IMPRESSION: No radiographic evidence of osteomyelitis. Fracture of the proximal phalanx of t he first digit as described above. Signed by: Dr. Xander Nava MD on 06/23/2018 7:34 PM Dictated By: XANDER NAVA MD Electronically Grisel d By: XANDER NAVA MD on 06/23/181933 Transcribed By: TIANA on 06/23/181933 COPY TO: APOLLO HAGAN MD FOOT LEFT QRSSNDLJ8702-74-24 19:27:00 [place] [address] Patient Name: SHAHRIAR LEAL MR #: [id number] : 1940 Age/Sex: 77/M Req #: [id number] Adm Physician: SHERIDAN MAHONEY MD Ordered by: APOLLO HAGAN MD Report #: [id number] Location: [facility] Room/Bed: [place] [address] Procedure: [id number] DX/ FOOT LEFT COMPLETE Exam Date: 06/23/18 Exam Time: 18 20 REPORT STATUS: Signed Foot co mplete left Indication: Infection Technique: Portable A.P. oblique and lateral views of the left foot obtained Comparison: None Findings : There are anchors in the posterior calcaneus with prominent plantar and calcaneal spurs. There are degenerative changes of the ankle and midfoot. Mod erate degenerative changes of the first MTP and mild generative changes of the first IP joint. No fracture or dislocation. No focal demineralization or focal osseous lesion. There are calcifications throughout the vascular structu res. No focal subcutaneous edema or skin ulceration identified. IMPRES VERONICA: No radiographic evidence of osteomyelitis. Degenerative changes as de scribed above. Signed by: Dr. 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 Cellulitis of both lower legs and feet. Severe neuropathy with diffuse foot pain. Also ulcer at right 5th metatarsophalangeal joint. Radiopharmaceutical: Tc-99m MDP 24 mCi Comparison: None available Following intravenous administration of the radiopharmaceutical, dynamic flow and immediate blood pool images of the feet and ankles followed by 5-hour del ayed spot images were obtained. Flow and blood pool images show diffusely symmetric distribution of tracer activity to the feet and ankles with focal in creased tracer activity at the right 5th toe and superficially overlying the l eft calcaneus posteriorly. The delayed images show multiple focal areas of increased tracer activity in the bilateral feet and ankles consistent with de generative and neuropathic changes. Increased tracer is seen along the right 5th metatarsal and also superficially around the left calcaneus posteriorly. Impression: Suspect osteomyelitis in the right 5th metatarsal. Uptake at the left calcaneus posteriorly appears to be within soft tissue. Bone scan lacks specificity in the setting of diabetic foot ulcers. A labeled white b lood cell study would add specificity to the evaluation. Signed by: Dr. Zayra Mckeon M.D. on 06/23/2018 5:21 PM Dictated By: MUKUL MCKEON MD Electr onically Signed By: MUKUL MCKEON MD on 06/23/181720 Transcribed By: TIANA on 06/23/181720 COPY TO: SHERIDAN MAHONEY MD White Blood Count 2018-06-23 05:52:00* Test Item Value Reference Range Interpretation Comments White Blood Count (test code = 6690-2) 7.81 4.8-10.8 [facility] Ghwql0785-78-91 05:52:00* Test Item Value Reference Range Interpretation Comments Red Blood Count (test code = 789-8) 3.68 4.3-5.7 L [facility] HospitalHemoglobin2019-03-26 05:52:00* Test Item Value Reference Range Interpretation Comments Hemoglobin (test code = 68087-7) 10.8 14.0-18.0 L [facility] HospitalHematocrit2019-03-26 05:52:00* Test Item Value Reference Range Interpretation Comments Hematocrit (test code = 4544-3) 33.0 38.2-49.6 L [facility] HospitalMean Corpuscular Oaldjl7982-87-58 05:52:00* Test Item Value Reference Range Interpretation Comments Mean Corpuscular Volume (test code = 787-2) 89.7 81-99 [facility] HospitalMean Corpuscular Bwshzaqrob7936-47-43 05:52:00* Test Item Value Reference Range Interpretation Comments Mean Corpuscular Hemoglobin (test code = 785-6) 29.3 28-32 [facility] HospitalMean Corpuscular Hemoglobin Concent 2018-06-23 05:52:00* Test Item Value Reference Range Interpretation Comments Mean Corpuscular Hemoglobin Concent (test code = 786-4) 32.7 31-35 [facility]Red Cell Distribution Iwugt9659-19-49 05:52:00* Test Item Value Reference Range Interpretation Comments Red Cell Distribution Width (test code = 84841-2) 15.5 11.7 -14.4 H [facility] HospitalPlatelet Wtlgj5298-12-77 05:52:00* Test Item Value Reference Range Interpretation Comments Platelet Count (test code = 777-3) 145 140-360 [facility] HospitalNeutrophils (%) (Auto)2018-06-23 05:52:00 * Test Item Value Reference Range Interpretation Comments Neutrophils (%) (Auto) (test code = 47834-5) 43.8 38.7-80.0 [facility] HospitalLymphocytes (%) (Auto)2018-06-23 05:52:00 * Test Item Value Reference Range Interpretation Comments Lymphocytes (%) (Auto) (test code = 736-9) 38.7 18.0-39.1 [facility] HospitalMonocytes (%) (Auto)2018-06-23 05:52:00* Test Item Value Reference Range Interpretation Comments Monocytes (%) (Auto) (test code = 5905-5) 16.1 4.4-11.3 H [facility] HospitalEosinophils (%) (Auto)2018-06-23 05:52:00 * Test Item Value Reference Range Interpretation Comments Eosinophils (%) (Auto) (test code = 713-8) 0.5 0.0-6.0 [facility] HospitalBasophils (%) (Auto)2018-06-23 05:52:00* Test Item Value Reference Range Interpretation Comments Basophils (%) (Auto) (test code = 706-2) 0.4 0.0-1.0 [facility] HospitalIM GRANULOCYTES %2018-06-23 05:52:00* Test Item Value Reference Range Interpretation Comments IM GRANULOCYTES % (test code = IM GRANULOCYTES %) 0.5 0.0- 1.0 [facility] HospitalNeutrophils # (Auto)2018-06-23 05:52:00* Test Item Value Reference Range Interpretation Comments Neutrophils # (Auto) (test code = 751-8) 3.4 2.1-6.9 [facility] HospitalLymphocytes # (Auto)2018-06-23 05:52:00* Test Item Value Reference Range Interpretation Comments Lymphocytes # (Auto) (test code = 84732-1) 3.0 1.0-3.2 [facility] HospitalMonocytes # (Auto)2018-06-23 05:52:00* Test Item Value Reference Range Interpretation Comments Monocytes # (Auto) (test code = 742-7) 1.3 0.2-0.8 H [facility] HospitalEosinophils # (Auto)2018-06-23 05:52:00* Test Item Value Reference Range Interpretation Comments Eosinophils # (Auto) (test code = 711-2) 0.0 0.0-0.4 [facility] HospitalBasophils # (Auto)2018-06-23 05:52:00* Test Item Value Reference Range Interpretation Comments Basophils # (Auto) (test code = 704-7) 0.0 0.0-0.1 [facility] HospitalAbsolute Immature Granulocyte (auto 2018-06-23 05:52:00* Test Item Value Reference Range Interpretation Comments Absolute Immature Granulocyte (auto (jordon t code = Absolute Immature Granulocyte (auto) 0.04 0-0.1 [facility] HospitalDifferential Total Cells Counted 2018-06-22 09:35:00* Test Item Value Reference Range Interpretation Comments Differential Total Cells Counted (test code = Differen tial Total Cells Counted) 100 [facility] HospitalNeutrophils % (Manual)2018-06-22 09:35:00 * Test Item Value Reference Range Interpretation Comments Neutrophils % (Manual) (test code = 13164-9) 53 40-74 [facility] HospitalLymphocytes % (Manual)2018-06-22 09:35:00 * Test Item Value Reference Range Interpretation Comments Lymphocytes % (Manual) (test code = 737-7) 19 19-48 [facility] HospitalMonocytes % (Manual)2018-06-22 09:35:00* Test Item Value Reference Range Interpretation Comments Monocytes % (Manual) (test code = 744-3) 25 3.4-9.0 H [facility] HospitalReactive Ltxpgmyidcs8910-29-41 09:35:00* Test Item Value Reference Range Interpretation Comments Reactive Lymphocytes (test code = 00950-2) 3 [facility] HospitalPlatelet Hxozccvi5170-65-81 09:35:00* Test Item Value Reference Range Interpretation Comments Platelet Estimate (test code = 52728-5) ADEQUATE [facility] HospitalPlatelet Morphology Fdaergo8917-90-37 09:35:00* Test Item Value Reference Range Interpretation Comments Platelet Morphology Comment (test code = 42877-3) NORMAL [facility] HospitalRed Cell Morphology Aiepnfr4327-00-33 09:35:00* Test Item Value Reference Range Interpretation Comments Red Cell Morphology Comment (test code = 6742-1) NORMAL [facility] HospitalDifferential Total Cells Counted 2018-06-22 09:35:00* Test Item Value Reference Range Interpretation Comments Differential Total Cells Counted (test code = Differen tial Total Cells Counted) 100 [facility] HospitalNeutrophils % (Manual)2018-06-22 09:35:00 * Test Item Value Reference Range Interpretation Comments Neutrophils % (Manual) (test code = 18397-5) 53 40-74 [facility] HospitalLymphocytes % (Manual)2018-06-22 09:35:00 * Test Item Value Reference Range Interpretation Comments Lymphocytes % (Manual) (test code = 737-7) 19 19-48 [facility] HospitalMonocytes % (Manual)2018-06-22 09:35:00* Test Item Value Reference Range Interpretation Comments Monocytes % (Manual) (test code = 744-3) 25 3.4-9.0 H [facility] HospitalReactive Kiaguurnhph0729-03-05 09:35:00* Test Item Value Reference Range Interpretation Comments Reactive Lymphocytes (test code = 46142-6) 3 [facility] HospitalPlatelet Frniiwnk2118-92-31 09:35:00* Test Item Value Reference Range Interpretation Comments Platelet Estimate (test code = 81479-6) ADEQUATE [facility] HospitalPlatelet Morphology Bobvjhl5081-49-75 09:35:00* Test Item Value Reference Range Interpretation Comments Platelet Morphology Comment (test code = 68597-2) NORMAL [facility] HospitalRed Cell Morphology Lcmrerj7142-95-84 09:35:00* Test Item Value Reference Range Interpretation Comments Red Cell Morphology Comment (test code = 6742-1) NORMAL [facility] HospitalDifferential Total Cells Counted 2018-06-22 09:35:00* Test Item Value Reference Range Interpretation Comments Differential Total Cells Counted (test code = Differen tial Total Cells Counted) 100 [facility] HospitalNeutrophils % (Manual)2018-06-22 09:35:00 * Test Item Value Reference Range Interpretation Comments Neutrophils % (Manual) (test code = 73685-8) 53 40-74 [facility] HospitalLymphocytes % (Manual)2018-06-22 09:35:00 * Test Item Value Reference Range Interpretation Comments Lymphocytes % (Manual) (test code = 737-7) 19 19-48 [facility] HospitalMonocytes % (Manual)2018-06-22 09:35:00* Test Item Value Reference Range Interpretation Comments Monocytes % (Manual) (test code = 744-3) 25 3.4-9.0 H [facility] HospitalReactive Fgldrjatmun1620-53-90 09:35:00* Test Item Value Reference Range Interpretation Comments Reactive Lymphocytes (test code = 49376-6) 3 [facility] HospitalPlatelet Elfoooef9978-29-55 09:35:00* Test Item Value Reference Range Interpretation Comments Platelet Estimate (test code = 85950-6) ADEQUATE [facility] HospitalPlatelet Morphology Cbwimtw4995-03-89 09:35:00* Test Item Value Reference Range Interpretation Comments Platelet Morphology Comment (test code = 17327-5) NORMAL [facility] HospitalRed Cell Morphology Dxvhnhs1209-14-00 09:35:00* Test Item Value Reference Range Interpretation Comments Red Cell Morphology Comment (test code = 6742-1) NORMAL [facility] HospitalDifferential Total Cells Counted 2018-06-22 09:35:00* Test Item Value Reference Range Interpretation Comments Differential Total Cells Counted (test code = Differaixa tial Total Cells Counted) 100 [facility] HospitalNeutrophils % (Manual)2018-06-22 09:35:00 * Test Item Value Reference Range Interpretation Comments Neutrophils % (Manual) (test code = 84994-5) 53 40-74 [facility] HospitalLymphocytes % (Manual)2018-06-22 09:35:00 * Test Item Value Reference Range Interpretation Comments Lymphocytes % (Manual) (test code = 737-7) 19 19-48 [facility] HospitalMonocytes % (Manual)2018-06-22 09:35:00* Test Item Value Reference Range Interpretation Comments Monocytes % (Manual) (test code = 744-3) 25 3.4-9.0 H [facility] HospitalReactive Wktufrxnefg4679-25-45 09:35:00* Test Item Value Reference Range Interpretation Comments Reactive Lymphocytes (test code = 53118-8) 3 [facility] HospitalPlatelet Kwjyuwdo5814-13-76 09:35:00* Test Item Value Reference Range Interpretation Comments Platelet Estimate (test code = 85210-1) ADEQUATE [facility] HospitalPlatelet Morphology Xivyzda2399-17-27 09:35:00* Test Item Value Reference Range Interpretation Comments Platelet Morphology Comment (test code = 32586-8) NORMAL [facility] HospitalRed Cell Morphology Ewndyqu6059-91-79 09:35:00* Test Item Value Reference Range Interpretation Comments Red Cell Morphology Comment (test code = 6742-1) NORMAL [facility] HospitalDifferential Total Cells Counted 2018-06-22 09:35:00* Test Item Value Reference Range Interpretation Comments Differential Total Cells Counted (test code = Differen tial Total Cells Counted) 100 [facility] HospitalNeutrophils % (Manual)2018-06-22 09:35:00 * Test Item Value Reference Range Interpretation Comments Neutrophils % (Manual) (test code = 08253-7) 53 40-74 [facility] HospitalLymphocytes % (Manual)2018-06-22 09:35:00 * Test Item Value Reference Range Interpretation Comments Lymphocytes % (Manual) (test code = 737-7) 19 19-48 [facility] HospitalMonocytes % (Manual)2018-06-22 09:35:00* Test Item Value Reference Range Interpretation Comments Monocytes % (Manual) (test code = 744-3) 25 3.4-9.0 H [facility] HospitalReactive Eaqgmusahcq6419-42-10 09:35:00* Test Item Value Reference Range Interpretation Comments Reactive Lymphocytes (test code = 40782-5) 3 [facility] HospitalPlatelet Ypohzxpd9637-22-12 09:35:00* Test Item Value Reference Range Interpretation Comments Platelet Estimate (test code = 34873-9) ADEQUATE [facility] HospitalPlatelet Morphology Mlqkgnx6721-27-91 09:35:00* Test Item Value Reference Range Interpretation Comments Platelet Morphology Comment (test code = 83667-6) NORMAL [facility] HospitalRed Cell Morphology Oemeaeh3793-86-46 09:35:00* Test Item Value Reference Range Interpretation Comments Red Cell Morphology Comment (test code = 6742-1) NORMAL [facility] HospitalBand Neutrophils %2018-06-21 17:15:00* Test Item Value Reference Range Interpretation Comments Band Neutrophils % (test code = 764-1) 6 [facility] HospitalBand Neutrophils %2018-06-21 17:15:00* Test Item Value Reference Range Interpretation Comments Band Neutrophils % (test code = 764-1) 6 [facility] HospitalBand Neutrophils %2018-06-21 17:15:00* Test Item Value Reference Range Interpretation Comments Band Neutrophils % (test code = 764-1) 6 [facility] HospitalBand Neutrophils %2018-06-21 17:15:00* Test Item Value Reference Range Interpretation Comments Band Neutrophils % (test code = 764-1) 6 [facility] HospitalBand Neutrophils %2018-06-21 17:15:00* Test Item Value Reference Range Interpretation Comments Band Neutrophils % (test code = 764-1) 6 [facility] HospitalUrine Qvpnx8364-86-67 16:27:00* Test Item Value Reference Range Interpretation Comments Urine Color (test code = 5778-6) YELLOW YELLOW [facility] HospitalUrine Jsqeksn7910-32-16 16:27:00* Test Item Value Reference Range Interpretation Comments Urine Clarity (test code = 53334-3) HAZY CLEAR [facility] HospitalUrine Specific Zwwwepn5509-65-37 16:27:00 * Test Item Value Reference Range Interpretation Comments Urine Specific [place] (test code = 5811-5) 1.025 1.010-1.02 5 [facility] HospitalUrine pG7210-01-81 16:27:00* Test Item Value Reference Range Interpretation Comments Urine pH (test code = 78510-8) 6 5-7 [facility] HospitalU[facility] Leukocyte Ublkhxmf2387-27-94 16:27:00* Test Item Value Reference Range Interpretation Comments Urine Leukocyte Esterase (test code = 5799-2) NEGATIVE NEGATIVE [facility] HospitalUrine Jenaeim6161-34-46 16:27:00* Test Item Value Reference Range Interpretation Comments Urine Nitrite (test code = 57534-7) NEGATIVE NEGATIVE [facility] HospitalUrine Zilhmjh7474-22-48 16:27:00* Test Item Value Reference Range Interpretation Comments Urine Protein (test code = 5804-0) NEGATIVE NEGATIVE [facility] HospitalUrine Glucose (UA)2018-06-21 16:27:00* Test Item Value Reference Range Interpretation Comments Urine Glucose (UA) (test code = 2349-9) NEGATIVE NEGATIVE [facility] HospitalUrine Heolgti7696-23-68 16:27:00* Test Item Value Reference Range Interpretation Comments Urine Ketones (test code = 23193-9) NEGATIVE NEGATIVE [facility] HospitalUrine Kxzkunyvqtve2632-11-53 16:27:00* Test Item Value Reference Range Interpretation Comments Urine Urobilinogen (test code = 09856-6) 0.2 0.2-1 [facility] HospitalUrine Dazfwwxel9608-21-52 16:27:00* Test Item Value Reference Range Interpretation Comments Urine Bilirubin (test code = 1978-6) NEGATIVE NEGATIVE [facility] Nahro4009-82-77 16:27:00* Test Item Value Reference Range Interpretation Comments Urine Blood (test code = 37022-7) NEGATIVE NEGATIVE [facility] HospitalUrine RQQ7785-82-89 16:27:00* Test Item Value Reference Range Interpretation Comments Urine WBC (test code = 5821-4) 0-5 0-5 [facility] HospitalUrine TCA9917-80-60 16:27:00* Test Item Value Reference Range Interpretation Comments Urine RBC (test code = 06424-8) NONE 0-5 [facility] HospitalU[facility] Czufvbkz1133-73-14 16:27:00* Test Item Value Reference Range Interpretation Comments Urine Bacteria (test code = 93834-9) FEW NONE [facility] HospitalUrine Epithelial Azzsf2692-63-83 16:27:00 * Test Item Value Reference Range Interpretation Comments Urine Epithelial Cells (test code = 35050-4) FEW NONE [facility] HospitalTotal Aiqodzupd4431-40-35 16:14:00* Test Item Value Reference Range Interpretation Comments Total Bilirubin (test code = 1975-2) 0.8 0.2-1.2 [facility] HospitalAspartate Amino Transf (AST/SGOT) 2018-06-21 16:14:00* Test Item Value Reference Range Interpretation Comments Aspartate Amino Transf (AST/SGOT) (test code = Aspartate Amino Transf (AST/SGOT)) 17 5-34 [facility] HospitalAlanine Aminotransferase (ALT/SGPT) 2018-06-21 16:14:00* Test Item Value Reference Range Interpretation Comments Alanine Aminotransferase (ALT/SGPT) (test code = 1742-6) 15 0-55 [facility] HospitalTotal Yjbdvzi5688-24-71 16:14:00* Test Item Value Reference Range Interpretation Comments Total Protein (test code = 2885-2) 8.0 6.5-8.1 [facility] HospitalAlbumin2019-03-24 16:14:00* Test Item Value Reference Range Interpretation Comments Albumin (test code = 1751-7) 3.9 3.5-5.0 [facility] HospitalGlobulin2019-03-24 16:14:00* Test Item Value Reference Range Interpretation Comments Globulin (test code = 11218-4) 4.1 2.3-3.5 H [facility] HospitalAlbumin/Globulin Fmecn2890-84-99 16:14:00 * Test Item Value Reference Range Interpretation Comments Albumin/Globulin Ratio (test code = 1759-0) 1.0 0.8-2.0 [facility] HospitalAlkaline Kefyeznaqwx5544-90-17 16:14:00* Test Item Value Reference Range Interpretation Comments Alkaline Phosphatase (test code = 6768-6) 75 40-150 [facility] HospitalBASIC METABOLIC XUTCQ8926-48-86 15:02:00 * Test Item Value Reference Range Interpretation Comments SODIUM (test code = NA) 135 mmol/L 136-145 L POTASSIUM (test code = K) 4.3 mmol/L 3.5-5.1 N CHLORIDE (test code = CL) 100.0 mmol/L 98-107 N CARBON DIOXIDE (test code = CO2) 25.0 mmol/L 21-32 N ANION GAP (test code = GAP) 14.3 10-20 N GLUCOSE (test code = GLU) 353 mg/dL 74-106 H BLOOD UREA NITROGEN (test code = BUN) 12 mg/dL 7-18 N GLOMERULAR FILTRATION RATE (test code = GFR) 59 mL/min >=60 Estimated GFR by using Modified MDRD formula.Chronic kidney disease is defined as either kidney damageor GFR <60 mL/min/1.73 m2 for >3 months. CREATININE (test code = CREAT) 1.20 mg/dL 0.7-1.3 N BUN/CREATININE RATIO (test code = BUN/CREA) 9.8 10-20 L CALCIUM (test code = CA) 8.7 mg/dL 8.5-10.1 N BASIC METABOLIC VBOUD1118-79-15 14:57:00* Test Item Value Reference Range Interpretation Comments SODIUM (test code = NA) 135 mmol/L 136-145 L POTASSIUM (test code = K) 4.3 mmol/L 3.5-5.1 N CHLORIDE (test code = CL) 100.0 mmol/L 98-107 N CARBON DIOXIDE (test code = CO2) mmol/L 21-32 ANION GAP (test code = GAP) 10-20 GLUCOSE (test code = GLU) mg/dL 74-106 BLOOD UREA NITROGEN (test code = BUN) mg/dL 7-18 GLOMERULAR FILTRATION RATE (test code = GFR) mL/min >=60 CREATININE (test code = CREAT) mg/dL 0.7-1.3 BUN/CREATININE RATIO (test code = BUN/CREA) 10-20 CALCIUM (test code = CA) mg/dL 8.5-10.1 CBC W/O TZBB1023-05-58 14:44:00* Test Item Value Reference Range Interpretation Comments WHITE BLOOD CELL (test code = WBC) 5.6 K/mm3 4.5-12.5 N RED BLOOD CELL (test code = RBC) 4.89 mill/mm3 4.0-5.8 N HEMOGLOBIN (test code = HGB) 14.0 gram/dL 13.0-17.5 N HEMATOCRIT (test code = HCT) 43.5 % 42.0-52.0 N MEAN CELL VOLUME (test code = MCV) 89.0 fL 80-98 N MEAN CELL HGB (test code = MCH) 28.6 picogram 27.0-33.0 N MEAN CELL HGB CONCETRATION (test code = MCHC) 32.2 gram/dL 33.0-36. 0 L RED CELL DISTRIBUTION WIDTH (test code = RDW) 14.6 % 11.6-16. 2 N PLATELET COUNT (test code = PLT) 147 K/mm3 150-450 L MEAN PLATELET VOLUME (test code = MPV) 11.3 fL 6.7-11.0 H CBC W/O QFCM0140-76-33 14:43:00* Test Item Value Reference Range Interpretation Comments WHITE BLOOD CELL (test code = WBC) K/mm3 4.5-12.5 RED BLOOD CELL (test code = RBC) mill/mm3 4.0-5.8 HEMOGLOBIN (test code = HGB) 14.0 gram/dL 13.0-17.5 N HEMATOCRIT (test code = HCT) 43.5 % 42.0-52.0 N MEAN CELL VOLUME (test code = MCV) fL 80-98 MEAN CELL HGB (test code = MCH) picogram 27.0-33.0 MEAN CELL HGB CONCETRATION (test code = MCHC) gram/dL 33.0-36. 0 RED CELL DISTRIBUTION WIDTH (test code = RDW) % 11.6-16. 2 PLATELET COUNT (test code = PLT) K/mm3 150-450 MEAN PLATELET VOLUME (test code = MPV) fL 6.7-11.0 - XR L-SPINE 2/3 NFPUS4390-18-48 14:23:00 FAX: Rodney Campoverde [place]: B St: REG Name: Jayne SOLOMONSHAHRIAR Parr [facility] : [birth year] Age/S: 77/M [address] [facility] Unit #: [id number] Loc: [place] [address] Phys: Rodney Campoverde MD Acct: [id number] Dis Date: Status: REG ER PHONE #: [phone] Exam Date: 05/19/2018 1349 FAX #: [phone] Reason: fall, pain EXAMS: CPT CODE: [id number] XR L-SPINE 2/3 VIEWS 77276 HISTORY: Fall and pain. COMPARISON: None available. 3 views of the lumbar spine: No acute fracture or dislocation. Vertebral body heights are main tained. Bridging anterolateral marginal osteophytes. SI joints are preserv ed. Sacralization of the L5 vertebral body. IMPRESSION: No acute fracture or dislocation. Advanced degenerative change. at 1423 Reported and signed by: Luisito Cardoza M.D. CC: Rodney Campoverde MD Technologist: RT YESENIA(R) Trnscrd Date/Time/By: 05/19 (8013) : By: [email or web address] Orig Print D/T: S: 05/19/2018 (5724) PAGE 1 Signed Report - XR HIP BI W/TVQTHW4871-52-58 13:52:00 FAX: Rodney Campoverde [place]: B St: REG Name: SHAHRIAR GALLEGOS [facility] : [birth year] Age/S: 77/M [address] [facility] Unit #: [id number] Loc: [place] [address] Phys: Rodney Campoverde MD Acct: [id number] Dis Date: Status: REG ER PHONE #: [phone] Exam Date: 05/19/2018 1347 FAX #: [phone] Reason: fall, pain EXAMS: CPT CODE: [id number] XR HIP BI W/PELVIS 27399 HISTORY: Fall and pain. COMPARISON: None available. [...] fracture or dislocation. Narrowed hip joints. at 8784 Reported and signed by: Luisito Cardoza M.D. CC: Rodney Campoverde MD Technologist: CELINA HOLTR) Trnscrd Date/Time/By: 05/19/2018 (9689) : By: [email or web address] Orig Print D/T: S: 05/19/2018 (4835) PAGE 1 Signed Report
--- OUTSIDE RECORDS SUMMARY | 2020-02-19 10:21 | XMS REPORT | Continuity of Care Document ---
Author Author [facility] t Organization [facility] Address [address] [place] [address] Phone Unavailable Care Team Providers [facility] Di[facility] Name Role Phone MD Robin MAHONEY MD PCP Mikey MCGINNIS Attphys Unavailable Bety EDMONDS, Kamryn Attphys Manasa EDMONDS, Alpesh Contreras Attphys Gold Bird MD, Dean Cotton Attphys [phone] Provider, Unknown Attphys Unavailable Gilberto EDMONDS, Emily Attphys Eron EDMONDS, Cate Savage Attphys [phone] Jama EDMONDS, Chidi Lucero Attphys [phone] Osmel New CRNA Attphys Piotr EDMONDS, Camilo Murillo Attphys [phone] Meredith EDMONDS, Reza Hong Attphys Robin MAHONEY Attphys Unavailable GRACE HERRERA Attphys Unavailable VÍCTOR, S AMBICA Attphys Unavailable Mikey MCGINNIS Admphys Unavailable BETY, KAMRYN Admphys Unavailable CARLA ELAINE Admphys Unavailable DENZEL, S SHERIDAN Admphys Unavailable Payers Payer Name Policy Type Policy Number Effective Date Expiration Date Robin LANE MEDICAREHUMANA MEDICARE PPO/PFFS/ERS [id number] 2019 00:00:00 Carlos Abrams [employer] Medicare Replacement [id number] 2012 00:00:00 [facility] Problems Condition Name Condition Details Condition Category [...] Abrams Recurrent falls Falls frequently Problem Active [facility] Low back pain Low back pain Problem Active [facility] Obesity Obesity Problem Active [facility] Dehydration Dehydration Problem Active [facility] Diarrhea Diarrhea Problem Active [facility] Diabetic foot infection Diabetic foot infection Problem Active [facility] Cellulitis in diabetic foot Problem Active [facility] Urinary tract infection Problem Active [facility] Cellulitis of scrotum Problem Active [facility] Atrial fibrillation Atrial fibrillation Disease Active [facility] Diabetes mellitus Diabetes mellitus Disease Active [facility] Hypertension Hypertension Disease Active [facility] History of congestive heart failure History of congestive heart failure Disease Active [facility] Pressure ulcer of sacral region, unspecified stage Pre ssure ulcer of sacral region, unspecified stage Disease Active [facility] Pressure ulcer of right heel Pressure ulcer of right heel Disease Active [facility] Anemia, unspecified Anemia, unspecified Disease Active [facility] History of hyperlipidemia History of hyperlipidemia Disease Active [facility] History of CVA (cerebrovascular accident) History of C VA (cerebrovascular accident) Disease Active Gonzalez [facility] Bedbound Bedbound Disease Active [facility] Allergies, Adverse Reactions, Alerts Allergy Name Allergy Type Status Severity Reaction(s) Onset Date Inacti ve Date Treating Clinician Comments Source Codeine Propensity to adverse reactions to drug Active Hives 2019-11-17 00:00:00 Carlos gilman Penicillins Propensity to adverse reactions to drug Active Hives 2019-11-17 00:00:00 Carlos gilman Codeine Allergy to substance Active Moderate rash 2019-09-18 00:00:00 [facility] Penicillins DA Active SV 2018-10-06 00:00:00 [facility] penicillin Allergy to substance Active Mild Rash 2018-09-08 00:00:00 [facility] Penicillins DA Active SV 2018-05-19 00:00:00 [facility] Penicillins DA Active SV 2017-02-20 00:00:00 [facility] Social History Social Habit Start Date Stop [...] 400 mg capsule 2020-02-04 16:06:37 Yes 400mg [id number] Take 400 mg by mouth 3 (three) times a day. Carlos Abrams glimepiride (AMARYL) 2 MG tablet 2020-02-04 16:06:37 Yes 2mg Q.5D Take 2 mg by mouth 2 (two) times a day. Christie Abrams levothyroxine (SYNTHROID) 137 mcg tablet 2020-02-04 16:06:37 Yes 137ug QD Take 137 mcg by mouth daily. Amna wilder [facility] [facility] lisinopriL (PRINIVIL) 2.5 mg tablet 2020-02-04 16:06:37 [...] 2020-02-04 00:00: 00 2020-03-05 23:59:00 Yes 2.5mg Q.[id number] Take 1 tablet (2.5 mg total) by [...] mg by mouth every 6 (six) hours. Carlso Abrams zinc sulfate (ZINCATE) 220 (50) mg [...] solution 2019-12-15 00:00:00 2020-01 00:00:00 No 20g Q.[id number] Take 30 mL (20 g total) by [...] taking for UTI Start date 11/08 Carlos [facility] Ondansetron Hcl (Zofran*) 4 Mg TABLET Ondansetron Hcl (Zofra n*) 4 Mg TABLET 2018-09-08 18:02:00 2018-09-08 00:00:00 No 4 Every 6 Hours as needed for Nausea [facility] Acetaminophen/Hydrocodone Bitart (Mullin 10MG-325MG*) 1 Ea TAB Acetaminophen/Hydrocodone Bitart (Mullin 10MG-325MG*) 1 Ea TAB Ye s 1 Three Times A Day as needed for Pain [facility] Alprazolam Alprazolam Yes 1 Three Time s A Day as needed for Anxiety [facility] Amlodipine Besylate Amlodipine Besylate Yes 5 Twice A Day [facility] Aspirin (Aspir-Low) 81 Mg TABLET. Aspirin (Aspir-Low) 81 Mg TABLET. Yes 1 Daily [facility] Atorvastatin Calcium Atorvastatin Calcium Yes 40 Bedtime [facility] Atorvastatin Calcium (Lipitor) 20 Mg TABLET Atorvastat in Calcium (Lipitor) 20 Mg TABLET Yes 40 Bedtime [facility] Carvedilol Carvedilol Yes 12.5 Twice A Day [facility] Citalopram Hydrobromide (Citalopram Hbr) 20 Mg TABLET Citalopram Hydrobromide (Citalopram Hbr) 20 Mg TABLET Yes 20 Daily [facility] Diphenhydramine Hcl (Benadryl) 25 Mg CAPSULE Diphenhyd ramine Hcl (Benadryl) 25 Mg CAPSULE Yes 25 Every 6 Hours as needed for Itching [facility] Ezetimibe (Zetia) 10 Mg TABLET Ezetimibe (Zetia) 10 Mg TABLET Yes 10 Bedtime [facility] Fluticasone Propionate (Flonase) 16 Gm SPRAY.SUSP Flut icasone Propionate (Flonase) 16 Gm SPRAY.SUSP Yes 16 as needed f or Allergy [facility] Furosemide Furosemide Yes 40 Daily [facility] Gabapentin Gabapentin Yes 800 Three Times A Day [facility] Glimepiride Glimepiride Yes 1 Daily [facility] Humalog Sliding Humalog Sliding Yes [facility] Hydrocodone Bit/Acetaminophen (Mullin 5-325 Tablet) 1 E ach TABLET Hydrocodone Bit/Acetaminophen (Mullin 5-325 Tablet) 1 Each TABLET Yes 1 Every 6 Hours as needed for Mild Pain (1-3) Or Fever>100.8 [facility] Insulin Glargine (Lantus 3ML Pen) 100 Units/1 Ml INJ I nsulin Glargine (Lantus 3ML Pen) 100 Units/1 Ml INJ Yes 35 Before Dahiana akfast [facility] Insulin Glargine (Lantus 3ML Pen) 100 Units/1 Ml INJ I nsulin Glargine (Lantus 3ML Pen) 100 Units/1 Ml INJ Yes 65 Before Sup per [facility] Levothyroxine Sodium (Synthroid) 125 Mcg TAB Levothyro xine Sodium (Synthroid) 125 Mcg TAB Yes 125 Daily@0600 [facility] Magnesium Oxide Magnesium Oxide Yes 400 Daily [facility] Metformin Metformin Yes 1000 Twice A Day [facility] Multivitamin (Multi-Vitamin Daily) 1 Each TABLET Multi vitamin (Multi-Vitamin Daily) 1 Each TABLET Yes 1 Daily [facility] Ondansetron Hcl (Zofran*) 4 Mg TABLET Ondansetron Hcl (Zofran*) 4 M g TABLET Yes 4 Every 6 Hours as needed for Nausea [facility] Quinapril Hcl Quinapril Hcl Yes 40 Daily [facility] Salmeterol Xinafoate/Fluticasone (Advair 500/50*) 1 Ea AERP Salmeterol Xinafoate/Fluticasone (Advair 500/50*) 1 Ea AERP Yes 1 As Needed [facility] Spironolactone Spironolactone Yes 25 Daily [facility] Tramadol Hcl (Ultram 50MG*) 50 Mg TAB Tramadol Hcl (Ultram 50MG*) 5 0 Mg TAB Yes 50 Every 6 Hours as needed for Pain [facility] Vit B 12 Vit B 12 Yes 1000 Daily [facility] Vit D 2000 Vit D 2000 Yes [facility] Zinc Sulfate Zinc Sulfate Yes 220 Daily [facility] Zolpidem Tartrate (Ambien) 5 Mg TABLET Zolpidem Tartrate (Ambien ) 5 Mg TABLET Yes 10 Bedtime [facility] Zolpidem Tartrate (Ambien) 10 Mg TABLET Zolpidem Tartrate (A mbien) 10 Mg TABLET Yes 10 Bedtime as needed for Insomnia [facility] Gabapentin Gabapentin 2018-10-27 00:00:00 No 300 Bed time [facility] Aspirin Aspirin 2018-09-05 00:00:00 No 81 Daily [facility] Carvedilol Carvedilol 2018-09-05 00:00:00 No 25 Twi ce A Day [facility] Citalopram Citalopram 2018-09-05 00:00:00 No 20 Saman ly [facility] Methocarbamol Methocarbamol 2016-03-13 00:00:00 No 500 Three Times A Day as needed for Muscle Spasms [facility] Potassium Chloride (K Dur*) 10 Meq TABCR Potassium Chl oride (K Dur*) 10 Meq TABCR 2016-03-13 00:00:00 No 20 Daily [facility] Immunizations Ordered Immunization Name Filled Immunization Name [...] Carlos Abrams BMI 2020-02-01 04:00:00 32.98 kg/m2 [place] [facility] Body height 2019-12-04 17:00:00 185.4 cm [facility] Body Temperature 2019-09-24 16:24:00 97.9 [degF] [facility] Weight 2019-09-21 09:03:00 255.38 [lb_av] [facility] BMI (Body Mass Index) 2019-09-21 09:03:00 34.6 kg/m2 [facility] Body Temperature 2019-09-18 21:28:00 97.8 [degF] [facility] Weight 2019-09-18 17:51:00 277 [lb_av] [facility] BMI (Body Mass Index) 2019-09-18 17:51:00 37.6 kg/m2 [facility] Procedures Procedure Date / Time Performed Performing Clinician Sourc e POC GLUCOSE 2020-02-04 11:28:00 Kamryn Albert Meth odist POC GLUCOSE 2020-02-04 07:21:00 NoKamryn vergara Meth odist POC GLUCOSE 2020-02-03 19:20:00 Karmyn Albert Meth odist POC GLUCOSE 2020-02-03 15:50:00 NoKamryn vergara Meth odist POC GLUCOSE 2020-02-03 10:54:00 Kamryn Albert Meth odist POC GLUCOSE 2020-02-03 08:08:00 Kamryn Albert Meth odist BASIC METABOLIC PANEL 2020-02-03 04:25:00 KoromaKarin pederson [employer] [facility] ESTIMATED GFR 2020-02-03 04:25:00 Karin Koromato n [employer] [facility] POC GLUCOSE 2020-02-02 20:03:00 Noor, Kamryn Gonzalez Meth odist POC GLUCOSE 2020-02-02 15:29:00 Noor, Kamryn Gonzalez Meth odist POC GLUCOSE 2020-02-02 11:09:00 Noor, Kamryncameron Gonzalez Meth odist POC GLUCOSE 2020-02-02 07:27:00 Noor, Kamryncameron Gonzalez Meth odist CBC HEMOGRAM 2020-02-02 05:00:00 Karin Koromato n [facility] [facility] POC GLUCOSE 2020-02-01 19:54:00 Noor, Kamryn Gonzalez Meth odist POC GLUCOSE 2020-02-01 16:08:00 Noor, Kamryn Gonzalez Meth odist POC GLUCOSE 2020-02-01 11:39:00 Noor, Kamryn Gonzalez Meth odist POC GLUCOSE 2020-02-01 07:34:00 Noor, Kamryn Gonzalez Meth odist HC COMPLETE BLD COUNT W/AUTO DIFF 2020-02-01 04:05:00 Kathrin King [employer] [facility] POC GLUCOSE 2020-01-31 19:58:00 Noor, Kamryn Gonzalez Meth odist POC GLUCOSE 2020-01-31 16:12:00 Noor, Kamryn Gonzalez Meth odist POC GLUCOSE 2020-01-31 11:19:00 Noor, Kamryn Gonzalez Meth odist POC GLUCOSE 2020-01-31 07:37:00 Noor, Kamryn Gonzalez Meth odist POC GLUCOSE 2020-01-30 21:30:00 Noor, Kamryn Gonzalez Meth odist POC GLUCOSE 2020-01-30 15:31[facility]00 [facility] 2020-01-30 12:26:00 Noor, Kamryn Gonzalez Meth odist POC GLUCOSE 2020-01-30 07:40:00 Noor, Kamryn Gonzalez Meth odist POC GLUCOSE 2020-01-30 06:01:00 [facility] 2020-01-29 19:39:00 [facility]OC [facility]UCOSE 2020-01-29 17:05:00 [...] COUNT W/AUTO DIFF 2020-01-25 04:00:00 Christine Kathrin Abrams BASIC METABOLIC PANEL 2020-01-25 04:00:00 Kathrin King ESTIMATED GFR 2020-01-25 04:00:00 Christine Kathrin Alex Radha priya [employer] POC GLUCOSE 2020-01-24 19:31:00 Noor, Kamryn Gonzalez [...] Meth odist POC GLUCOSE 2020-01-22 16:18:00 [facility] 2020-01-22 11:25:00 [facility]COSE 2020-01-22 07:25:00 [facility]UCOSE 2020-01-21 19:33:00 [facility]UCOSE 2020-01-21 15:38:00 [facility] COVID-19 QUALITATIVE PCR 2020-01-21 11:54:00 Vy Deutsch [employer] POC GLUCOSE 2020-01-21 11:31:00 Noor, Kamryn Gonzalez [...] Meth odist POC GLUCOSE 2020-01-18 11:24:00 [facility] 2020-01-18 07:18:00 Noor, Kamryn [place] Meth odist POC GLUCOSE 2020-01-18 06:09:00 Noor, Kamryn Lincoln Meth odist CREATINE KINASE, TOTAL (CPK) 2020-01-18 04:20:00 Adna Valdez Gonzalez [employer] [facility] POC GLUCOSE 2020-01-17 19:31:00 Noor, Kamryn Gonzalez Meth odist POC GLUCOSE 2020-01-17 15:42:00 [facility] 2020-01-17 10:35:00 [facility]UCOSE 2020-01-17 07:33:00 [facility]OC [facility]UCOSE 2020-01-17 06:36:00 [facility]OC [facility]UCOSE 2020-01-16 19:37:00 [facility]OC [facility]UCOSE 2020-01-16 15:44:00 [facility] POC GLUCOSE 2020-01-16 11:10:00 [facility]OC [facility]UCOSE 2020-01-16 07:40:00 [facility] POC GLUCOSE 2020-01-15 19:22:00 [facility] POC GLUCOSE 2020-01-15 15:50:00 Noor, Kamryn Gonzalez Meth odist POC GLUCOSE 2020-01-15 11:19:00 [facility]OC [facility]UCOSE 2020-01-15 07:43:00 [facility] CBC HEMOGRAM 2020-01-15 04:00:00 ObElizabeth collazo BASIC METABOLIC PANEL 2020-01-15 04:00:00 ObElizabeth collazo ton [employer] [facility] ESTIMATED GFR 2020-01-15 04:00:00 Noor, Kamryn Gonzalez Meth odist POC GLUCOSE 2020-01-14 20:16:00 [facility]UCOSE 2020-01-14 16:19:00 [facility] POC GLUCOSE 2020-01-14 11:33:00 [facility] POC GLUCOSE 2020-01-14 07:50:00 Noor, [...] TOTAL (CPK) 2020-01-11 05:20:00 Adan Valdez Gonzalez [facility] [facility] URINALYSIS, AUTOMATED WITH MICROSCOPY 2020-01-11 05:20:00 Chrissy Hunter [employer] [facility] POC GLUCOSE 2020-01-10 19:18:00 [facility]COSE 2020-01-10 16:02:00 [facility] POC GLUCOSE 2020-01-10 11:08:00 Noor, Kamryn Gonzalez Meth odist POC GLUCOSE 2020-01-10 07:16:00 [facility]OC GLUCOSE 2020-01-10 04:53:00 Noor, Kamryn [place] Meth odist CBC HEMOGRAM 2020-01-10 04:45:00 ObuebinElizabeth Carlos [employer] [facility] BASIC METABOLIC PANEL 2020-01-10 04:45:00 Obuekwe, Elizabethxenia Saenz uston [employer] [facility] ESTIMATED GFR 2020-01-10 04:45:00 Noor, Kamryn Gonzalez [...] odist POC GLUCOSE 2020-01-07 07:35:00 Noor, Kamryn [place] Meth odist POC GLUCOSE 2020-01-06 19:35:00 Noor, Kamryn Lincoln Meth odist POC GLUCOSE 2020-01-06 15:38:00 Noor, Kamryn Lincoln Meth odist POC GLUCOSE 2020-01-06 11:26:00 Noor, Kamryn [place] Meth odist POC GLUCOSE 2020-01-06 07:51:00 Noor, Kamryn Gonzalez Meth odist URINE CULTURE 2020-01-05 20:29:00 Chrissy Hunter Me thodist POC GLUCOSE 2020-01-05 19:37:00 Noor, Kamryn [place] Meth odist URINALYSIS SCREEN AND MICROSCOPY, WITH REFLEX TO CULTURE 202 18:55:00 Chrissy Hunter IRee Gonzalez [employer] POC GLUCOSE 2020-01-05 15:20:00 Noor, Kamrynallie Gonzalez Meth odist POC GLUCOSE 2020-01-05 11:39:00 Noor, Kamryn Gonzalez Meth odist POC GLUCOSE 2020-01-05 07:58:00 NoorKamryn Meth odist POC GLUCOSE 2020-01-05 05:21:00 Noor, Kamryn Gonzalez Meth odist POC GLUCOSE 2020-01-04 19:40:00 [facility] 2020-01-04 16:31:00 [facility] POC GLUCOSE 2020-01-04 11:29:00 [facility] POC GLUCOSE 2020-01-04 08:27:00 [...] Meth odist POC GLUCOSE 2020-01-02 05:35:00 [facility] HC COMPLETE BLD COUNT W/AUTO DIFF 2020-01-02 04:15:00 Eloy hankins EloyReeAllieRee Gonzalez [employer] [facility] COMPREHENSIVE METABOLIC PANEL 2020-01-02 04:15:00 [facility] LyonsMackenzie Gonzalez [facility] ESTIMATED GFR 2020-01-02 04:15:00 [facility] GreenwoodRee Carlos Lyons ethodist POC GLUCOSE 2020-01-01 19:56:00 Noor, Kamryn Gonzalez Meth odist POC GLUCOSE 2020-01-01 16:27:00 Noor, Kamryn Gonzalez Meth odist URINALYSIS, AUTOMATED WITH MICROSCOPY 2020-01-01 14:42:00 [facility] Vy LyonsReeMargarita Gonzalez [employer] [facility] POC GLUCOSE 2020-01-01 13:25:00 Noor, Kamryn Gonzalez Meth odist POC GLUCOSE 2020-01-01 13:16:00 Noor, Kamryn Goznalez Meth odist POC GLUCOSE 2020-01-01 11:28:00 Noor, Kamryn Gonzalez Meth odist POC GLUCOSE 2020-01-01 07:36:00 Noor, Kamryn Gonzalez Meth odist POC GLUCOSE 2020-01-01 06:09:00 [facility]UCOSE 2019-12-31 19:31:00 Noor, Kamryn Gonzalez Meth odist POC GLUCOSE 2019-12-31 15:54:00 [facility]OC GLUCOSE 2019-12-31 12:42:00 [facility] POC GLUCOSE 2019-12-31 07:59:00 [facility] POC GLUCOSE 2019-12-30 19:25:00 [facility], [facility] POC GLUCOSE 2019-12-30 16:22:00 [facility], [facility] POC GLUCOSE 2019-12-30 12:01:00 Noor, [facility] Meth odist POC GLUCOSE 2019-12-30 07:23:00 Noor, [facility] Meth odist POC GLUCOSE 2019-12-29 19:31:00 [facility], [facility] POC GLUCOSE 2019-12-29 16:28:00 Noor, [facility] Meth odist POC GLUCOSE 2019-12-29 11:44:00 Noor, [facility] Meth odist POC GLUCOSE 2019-12-29 07:47:00 Noor, [facility] Meth odist POC GLUCOSE 2019-12-29 05:43:00 Noor, [facility] Meth odist POC GLUCOSE 2019-12-28 19:23:00 Noor, [facility] Meth odist POC GLUCOSE 2019-12-28 15:47:00 Noor, [facility] Meth odist POC GLUCOSE 2019-12-28 11:38:00 Noor, [facility] Meth odist POC GLUCOSE 2019-12-28 07:19:00 Noor, [facility] Meth odist CREATINE KINASE, TOTAL (CPK) 2019-12-28 04:40:00 Adan Valdez [place] [facility] POC GLUCOSE 2019-12-27 19:49:00 Noor, [facility] Meth odist POC GLUCOSE 2019-12-27 16:24:00 Noor, [facility] Meth odist OCCULT BLOOD, STOOL 2019-12-27 14:10:00 Kathrin King [place] [facility] POC GLUCOSE 2019-12-27 11:20:00 Noor, [facility] Meth odist POC GLUCOSE 2019-12-27 07:20:00 Noor, [facility] Meth odist POC GLUCOSE 2019-12-27 05:41:00 Noor, [facility] Meth odist HC COMPLETE BLD COUNT W/AUTO DIFF 2019-12-27 04:00:00 King, Kathrin Abrams BASIC METABOLIC PANEL 2019-12-27 04:00:00 Christine Kathrin Gonzalez [employer] [facility] ESTIMATED GFR 2019-12-27 04:00:00 Christine Kathrin Alex Radha powers [employer] [facility] POC GLUCOSE 2019-12-26 19:50:00 Noor, Kamryncameron Gonazlez Meth odist POC GLUCOSE 2019-12-26 15:46:00 Noor, [...] odist POC GLUCOSE 2019-12-22 11:09:00 Noor, Kamryn [place] Meth odist POC GLUCOSE 2019-12-22 07:17:00 [facility]UCOSE 2019-12-21 19:44:00 [facility], [facility] POC GLUCOSE 2019-12-21 15:49:00 [facility], [facility] POC GLUCOSE 2019-12-21 11:08:00 [facility], [facility] POC GLUCOSE 2019-12-21 07:40:00 [facility], [facility] CREATINE KINASE, TOTAL (CPK) 2019-12-21 04:15:00 Adan Valdez ricardo Srinivas Gonzalez [employer] [facility] POC GLUCOSE 2019-12-20 20:02:00 [facility]UCOSE 2019-12-20 16:19:00 [facility], [facility] POC GLUCOSE 2019-12-20 11:16:00 [facility], [facility] POC GLUCOSE 2019-12-20 07:46:00 [facility], [facility] POC GLUCOSE 2019-12-19 19:56:00 [facility], [facility] POC GLUCOSE 2019-12-19 15:42:00 [facility], [facility] POC GLUCOSE 2019-12-19 11:42:00 [facility], [facility] POC GLUCOSE 2019-12-19 07:48:00 [facility], [facility] POC GLUCOSE 2019-12-18 19:37:00 [facility], [facility] POC GLUCOSE 2019-12-18 16:29:00 Noor, [facility] POC GLUCOSE 2019-12-18 11:28:00 Noor, [facility] POC GLUCOSE 2019-12-17 19:42:00 [facility]or, [facility] POC GLUCOSE 2019-12-17 15:52:00 Noor, [facility] POC GLUCOSE 2019-12-17 12:15:00 Noor, [facility] POC GLUCOSE 2019-12-17 07:26:00 Noor, [facility] POC GLUCOSE 2019-12-16 16:02:00 No[facility], [facility] POC GLUCOSE 2019-12-16 11:27:00 Kamryn Albert Meth odist POC GLUCOSE 2019-12-16 07:26:00 Kamryn Albert Meth odist URINE CULTURE 2019-12-16 07:18:00 Elizabeth Webster XR CHEST 1 VW PORTABLE 2019-12-16 05:07:00 Elizabeth Webster [employer] HC COMPLETE BLD COUNT W/AUTO DIFF 2019-12-16 05:00:00 Theresa Webster [employer] [facility] BASIC METABOLIC PANEL 2019-12-16 05:00:00 Elizabeth Webster [employer] [facility] URINALYSIS SCREEN AND MICROSCOPY, WITH REFLEX TO CULTURE 202 05:00:00 Elizabeth Webster ESTIMATED GFR 2019-12-16 05:00:00 Kamryn Albert Meth odist POC GLUCOSE 2019-12-15 20:16:00 Kamryn Albert Meth odist POC GLUCOSE 2019-12-15 18:34:00 Carla Elaineas Amna ston [employer] [facility] POC GLUCOSE 2019-12-15 17:02:00 Gold Carla Bird Amna ston [employer] [facility] POC GLUCOSE 2019-12-15 12:17:00 Carla Elaine Amna ston [employer] [facility] BASIC METABOLIC PANEL 2019-12-15 06:10:00 Chrissy Dee on [employer] MAGNESIUM LEVEL 2019-12-15 06:10:00 Chrissy Dee Met hodist ESTIMATED GFR 2019-12-15 06:10:00 Chrissy Dee Met hodist POC GLUCOSE 2019-12-15 05:17:00 Carla Elaine Dean Amna ston [facility] POC GLUCOSE 2019-12-14 19:57:00 GoldCarla Valentine Amna ston [facility] POC GLUCOSE 2019-12-14 16:12:00 Carla Elaine Amna ston [facility] POC GLUCOSE 2019-12-14 11:09:00 Carla Elaine Amna ston [facility] MAGNESIUM LEVEL 2019-12-14 09:42:00 Chrissy Dee Met hodist POC GLUCOSE 2019-12-14 06:30:00 Gold Bird, Carla Moran Anma ston [facility] POC GLUCOSE 2019-12-13 19:48:00 Gold Bird, Carla Moran Amna ston [facility] POC GLUCOSE 2019-12-13 16:18:00 Gold Bird, Carla Moran Amna ston [facility] POC GLUCOSE 2019-12-13 11:29:00 Gold Bird, Carla Moran Amna ston [facility] BASIC METABOLIC PANEL 2019-12-13 09:11:00 Chrissy Dee on [facility] HC COMPLETE BLD COUNT W/AUTO DIFF 2019-12-13 09:11:00 Julia Dee [facility] ESTIMATED GFR 2019-12-13 09:11:00 Chrissy Dee Met hodist POC GLUCOSE 2019-12-12 20:39:00 Gold Bird, Carla Moran Amna ston [facility] POC GLUCOSE 2019-12-12 16:57:00 Gold Bird, Carla Moran Amna ston [facility] POC GLUCOSE 2019-12-12 11:44:00 Gold Bird, Carla Moran Amna ston [facility] POC GLUCOSE 2019-12-12 05:58:00 Gold Bird, Carla Moran Amna ston [facility] POC GLUCOSE 2019-12-11 20:40:00 Gold Bird, Carla Dean Amna ston [facility] POC GLUCOSE 2019-12-11 16:04:00 Gold Bird, Carla Dean Amna ston [facility] POC GLUCOSE 2019-12-11 11:08:00 Gold Bird, Carla Moran Amna ston [facility] POC GLUCOSE 2019-12-11 05:43:00 Gold Bird, Carla Moran Amna ston [facility] POC GLUCOSE 2019-12-10 19:58:00 Gold Bird, Carla Moran Amna ston [facility] POC GLUCOSE 2019-12-10 16:36:00 Gold Bird, Carla Dean Amna ston [facility] POC GLUCOSE 2019-12-10 11:02:00 Gold Bird, Carla Dean Amna ston [facility] COMPREHENSIVE METABOLIC PANEL 2019-12-10 10:50:00 Chrissy Dee [facility] HC COMPLETE BLD COUNT W/AUTO DIFF 2019-12-10 10:50:00 Julia Dee [facility] ESTIMATED GFR 2019-12-10 10:50:00 Chrissy Dee Met hodist POC GLUCOSE 2019-12-10 05:12:00 GoldCarla Valentine Amna ston [facility] POC GLUCOSE 2019-12-09 20:11:00 GoldCarla Valentineu ston [facility] POC GLUCOSE 2019-12-09 16:05:00 Carla Elaine Amna ston [facility] POC GLUCOSE 2019-12-09 11:17:00 Carla Elaine Amna ston [facility] CREATINE KINASE, TOTAL (CPK) 2019-12-09 05:56:00 Sara Elaine se [facility] POC GLUCOSE 2019-12-09 05:33:00 GoldCarla Valentineu ston [facility] POC GLUCOSE 2019-12-08 20:33:00 GoldCarla Valentineu ston [facility] POC GLUCOSE 2019-12-08 15:55:00 Carla Elaine Amna ston [facility] MAGNESIUM LEVEL 2019-12-08 11:25:00 Chrissy Dee Met hodist POC GLUCOSE 2019-12-08 11:09:00 Carla Elaine Amna ston [facility] BASIC METABOLIC PANEL 2019-12-08 06:00:00 Altafericafarrukh Jorgejenna Gonzalez [facility] HC COMPLETE BLD COUNT W/AUTO DIFF 2019-12-08 06:00:00 Yuniorponcho Lissa petty [facility] ESTIMATED GFR 2019-12-08 06:00:00 AltafericaHank chadwickmaykeljenna Gonzalez [facility] POC GLUCOSE 2019-12-08 05:53:00 GoldCarla Valentine Amna ston [facility] POC GLUCOSE 2019-12-07 20:19:00 Gold Bird, Carla Dean Amna ston [facility] POC GLUCOSE 2019-12-07 16:03:00 Gold Bird, Carla Moran Amna ston [facility] POC GLUCOSE 2019-12-07 11:25:00 Gold Bird, Carla Moran Amna ston [facility] POC GLUCOSE 2019-12-07 06:11:00 Gold PelonCarla Amna ston [facility] BASIC METABOLIC PANEL 2019-12-07 05:05:00 Altafjoaquina Jorgejenna Gonzalez [facility] HC COMPLETE BLD COUNT W/AUTO DIFF 2019-12-07 05:05:00 Heather petty Jorgejenna Gonzalez [facility] MAGNESIUM LEVEL 2019-12-07 05:05:00 Yannclay Jorgejenna Gonzalez [facility] ESTIMATED GFR 2019-12-07 05:05:00 YannclayLissady Gonzalez [facility] POC GLUCOSE 2019-12-06 19:53:00 Goldaixa Bird Carla Moran Amna ston [facility] POC GLUCOSE 2019-12-06 15:56:00 Gold PelonCarla Amna ston [facility] POC GLUCOSE 2019-12-06 14:30:00 Gold Pelon, Carla Moran Amna ston [facility] ECG 12-LEAD 2019-12-06 14:25:32 MargaretPardeep Kyra Amna ston [facility] POC GLUCOSE 2019-12-06 11:30:00 Gold Bird Carla Moran Amna ston [facility] HC COMPLETE BLD COUNT W/AUTO DIFF 2019-12-06 11:20:00 Ermelinda Bailey [facility] POC GLUCOSE 2019-12-06 05:47:00 Goldaixa Bird Carla Moran Amna ston [facility] POC GLUCOSE 2019-12-05 19:33:00 Gold Pelon Carla Moran Amna ston [facility] POC GLUCOSE 2019-12-05 16:01:00 Gold Pelon Carla Moran Amna ston [facility] POC GLUCOSE 2019-12-05 11:19:00 Gold Bird, Carla Moran Amna ston [facility] POC GLUCOSE 2019-12-05 05:14:00 GoldCarla Valentine Amna ston [facility] POC GLUCOSE 2019-12-04 20:10:00 Gold Bird, Carla Moran Amna ston [facility] POC GLUCOSE 2019-12-04 16:05:00 GoldCarla Valentine Amna ston [facility] POC GLUCOSE 2019-12-04 11:03:00 Goldaixa Bird, Carla Moran Amna ston [facility] POC GLUCOSE 2019-12-04 06:07:00 Gold Bird, Carla Moran Amna ston [facility] CT UROGRAM 2019-12-03 22:21:40 Isma Travis Meth odist POC GLUCOSE 2019-12-03 20:36:00 Gold Bird, Carla Moran Amna ston [facility] POC GLUCOSE 2019-12-03 16:11:00 Gold Bird, Carla Moran Amna ston [facility] POC GLUCOSE 2019-12-03 10:57:00 Gold Bird, Carla Moran Amna ston [facility] HC COMPLETE BLD COUNT W/AUTO DIFF 2019-12-03 10:55:00 Julia Dee COMPREHENSIVE METABOLIC PANEL 2019-12-03 10:55:00 Chrissy Dee ESTIMATED GFR 2019-12-03 10:55:00 Chrissy Dee Met hodist POC GLUCOSE 2019-12-03 05:08:00 Gold Bird Carla Moran Amna ston [facility] POC GLUCOSE 2019-12-02 20:16:00 Gold Bird Carla Moran Amna ston [facility] POC GLUCOSE 2019-12-02 16:04:00 Goldaixa Bird, Carla Moran Amna ston [facility] TYPE AND SCREEN 2019-12-02 13:51:00 Gold Bird, Carla Moran Amna ston [facility] PREPARE RBC 2019-12-02 13:51:00 Gold Bird, Carla Moran Amna ston [facility] URINE CULTURE 2019-12-02 13:42:00 Isma Travis Meth odist URINALYSIS SCREEN AND MICROSCOPY, WITH REFLEX TO CULTURE 202 13:17:00 Isma Travis [facility] POC GLUCOSE 2019-12-02 10:44:00 Gold Bird, Carla Dean Amna ston [facility] POC GLUCOSE 2019-12-02 05:53:00 Gold Bird, Carla Dean Amna ston [facility] HC COMPLETE BLD COUNT W/AUTO DIFF 2019-12-02 04:45:00 Zayra Huerta [facility] BASIC METABOLIC PANEL 2019-12-02 04:45:00 Riley Huerta uston [facility] ESTIMATED GFR 2019-12-02 04:45:00 Riley Huerta [facility] CREATINE KINASE, TOTAL (CPK) 2019-12-02 04:45:00 Riley Huerta [facility] POC GLUCOSE 2019-12-01 20:14:00 Gold Bird, Carla Dean Amna ston [facility] POC GLUCOSE 2019-12-01 16:41:00 Gold Bird, Carla Dean Amna ston [facility] POC GLUCOSE 2019-12-01 11:14:00 Gold Bird, Carla Dean Amna ston [facility] POC GLUCOSE 2019-12-01 05:59:00 Gold Bird, Carla Dean Amna ston [facility] POC GLUCOSE 2019-11-30 19:38:00 Gold Bird, Carla Dean Amna ston [facility] POC GLUCOSE 2019-11-30 16:42:00 Gold Bird, Carla Dean Amna ston [facility] POC GLUCOSE 2019-11-30 11:58:00 Gold Bird, Carla Dean Amna ston [facility] POC GLUCOSE 2019-11-30 11:22:00 Gold Bird, Carla Dean Amna ston [facility] POC GLUCOSE 2019-11-30 06:14:00 Gold Bird, Carla Dean Amna ston [facility] POC GLUCOSE 2019-11-29 20:00:00 Gold Bird, Carla Dean Amna ston [facility] POC GLUCOSE 2019-11-29 16:19:00 Gold Bird, Carla Mccauleyas Amna ston [facility] POC GLUCOSE 2019-11-29 11:21:00 Gold Bird, Carla Moran Anma ston [facility] POC GLUCOSE 2019-11-29 06:01:00 Goldaixa Bird, Carla Moran Amna ston [facility] POC GLUCOSE 2019-11-28 21:02:00 Gold Bird, Carla Moran Amna ston [facility] POC GLUCOSE 2019-11-28 11:18:00 Gold Bird, Carla Moran Amna ston [facility] POC GLUCOSE 2019-11-28 05:41:00 Gold Bird, Carla Moran Amna ston [facility] POC GLUCOSE 2019-11-27 19:24:00 Gold Bird, Carla Moran Amna ston [facility] POC GLUCOSE 2019-11-27 15:54:00 Goldaixa Bird, Carla Moran Amna ston [facility] POC GLUCOSE 2019-11-27 11:34:00 Gold Bird, Carla Moran Amna ston [facility] POC GLUCOSE 2019-11-27 06:02:00 Gold Bird, Carla Moran Amna ston [facility] POC GLUCOSE 2019-11-26 20:55:00 Gold Bird, Carla Moran Amna ston [facility] IR BILATERAL LOWER EXTREMITY ARTERIOGRAM 2019-11-26 18:25:20 Chrissy Ruff [facility] US GUIDED VASCULAR ACCESS 2019-11-26 18:25:20 Pardeep Robles [facility] IR ABDOMINAL AORTOGRAM 2019-11-26 18:25:20 Pardeep Robles [facility] IR REVASC TIB PER W TLA ADD-ON LEFT 2019-11-26 18:25:20 Donovanr Pardeep yusuf [facility] IR REVASC FEM POPL W ATHER LEFT 2019-11-26 18:25:20 Pardeep Robles [facility] IR REVASC TIB PER INITIAL VESSEL W ATHER LEFT 2019-11-26 18: 25:20 Pardeep Robles [facility] POC GLUCOSE 2019-11-26 17:44:00 Carla Elaineu ston [facility] POC GLUCOSE 2019-11-26 12:02:00 Gold Bird, Carla Dean Amna ston [facility] CBC WITH PLATELET AND DIFFERENTIAL 2019-11-26 07:00:00 Carla Birch COMPREHENSIVE METABOLIC PANEL 2019-11-26 07:00:00 Zayra Elaine PARTIAL THROMBOPLASTIN TIME (PTT) 2019-11-26 07:00:00 Carla Barbosa PROTHROMBIN TIME WITH INR 2019-11-26 07:00:00 Carla Elaine ESTIMATED GFR 2019-11-26 07:00:00 Carla Elaine [facility] MANUAL DIFFERENTIAL 2019-11-26 07:00:00 Carla Elaine POC GLUCOSE 2019-11-26 06:27:00 Carla Elaine [facility] POC GLUCOSE 2019-11-25 20:13:00 Carla Elaine [facility] US DUPLEX ARTERIAL LOWER EXTREMITY BILATERAL 2019-11-25 12:3 6:59 Chrissy Dee POC GLUCOSE 2019-11-25 10:48:00 Carla Elaine [facility] CREATINE KINASE, TOTAL (CPK) 2019-11-25 06:00:00 Riley Huerta CBC WITH PLATELET AND DIFFERENTIAL 2019-11-25 06:00:00 Hussein Corona Gonzalez [facility] COMPREHENSIVE METABOLIC PANEL 2019-11-25 06:00:00 Claudio Littlejohn ESTIMATED GFR 2019-11-25 06:00:00 Hussein Littlejohn [facility] MANUAL DIFFERENTIAL 2019-11-25 06:00:00 Hussein Littlejohn [facility] POC GLUCOSE 2019-11-25 05:42:00 Carla Elaine [facility] URINALYSIS, AUTOMATED WITH MICROSCOPY 2019-11-25 02:20:00 Carla Pat POC GLUCOSE 2019-11-24 20:01:00 Car[address] [facility] CT ANGIOGRAM ABDOMINAL AORTA AND BILATERAL ILIOFEMORAL RUNOFF W WO CONTRAST 2019-11-24 18:39:54 Chrissy Dee IR PICC PLACEMENT 2019-11-24 17:44:08 Hussein Littlejohn POC GLUCOSE 2019-11-24 16:14:00 Carla Elaine [facility] POC GLUCOSE 2019-11-24 11:09:00 Carla Elaine [facility] POC GLUCOSE 2019-11-24 05:36:00 Carla Elaine VANCOMYCIN LEVEL, TROUGH 2019-11-23 23:37:00 Carla Elaine CBC WITH PLATELET AND DIFFERENTIAL 2019-11-23 23:13:00 Hussein Corona COMPREHENSIVE METABOLIC PANEL 2019-11-23 23:13:00 Claudio Littlejohn ESTIMATED GFR 2019-11-23 23:13:00 Hussein Littlejohnist MANUAL DIFFERENTIAL 2019-11-23 23:13:00 Hussein Littlejohn POC GLUCOSE 2019-11-23 20:21:00 Carla Elaine [facility] POC GLUCOSE 2019-11-23 16:17:00 Carla Elaine GA AN ELECTIVE ENDOTRACHEAL AIRWAY 2019-11-23 14:03:28 Bijal Mancilla RESECTION, COLON, LOW ANTERIOR, LAPAROSCOPIC 2019-11-23 12:4 9:00 Hussein Littlejohn POC GLUCOSE 2019-11-23 11:30:00 Carla Elaine [facility] POC GLUCOSE 2019-11-23 06:02:00 Carla Elaine BASIC METABOLIC PANEL 2019-11-23 05:15:00 Hussein Littlejohn CBC WITH PLATELET AND DIFFERENTIAL 2019-11-23 05:15:00 Carla Birch ESTIMATED GFR 2019-11-23 05:15:00 Hussein Littlejohn [facility] MANUAL DIFFERENTIAL 2019-11-23 05:15:00 Hussein Littlejohn [facility] POC GLUCOSE 2019-11-22 19:52:00 Carla Elaine [facility] POC GLUCOSE 2019-11-22 16:30:00 Carla Elaine [facility] TRANSFUSE RED BLOOD CELLS 2019-11-22 15:44:49 Carla Elaine POC GLUCOSE 2019-11-22 11:59:00 Carla Elaine [facility] PREPARE RBC 2019-11-22 08:06:00 Carla Elaine [facility] POC GLUCOSE 2019-11-22 05:01:00 Carla Elaine [facility] CBC WITH PLATELET AND DIFFERENTIAL 2019-11-22 04:54:00 Hussein Corona Gonzalez [facility] COMPREHENSIVE METABOLIC PANEL 2019-11-22 04:54:00 Claudio Littlejohn [facility] ESTIMATED GFR 2019-11-22 04:54:00 Hussein Littlejohn [facility] MANUAL DIFFERENTIAL 2019-11-22 04:54:00 Hussein Littlejohn [facility] POC GLUCOSE 2019-11-21 20:02:00 Carla Elaine [facility] POC GLUCOSE 2019-11-21 15:59:00 Carla Elaine [facility] VANCOMYCIN LEVEL, TROUGH 2019-11-21 12:31:00 Hussein Littlejohn [facility] POC GLUCOSE 2019-11-21 11:27:00 Carla Elaine [facility] POC GLUCOSE 2019-11-21 10:33:00 Carla Elaine [facility] ANAEROBIC CULTURE 2019-11-21 09:42:00 Hussein Littlejohn FUNGUS CULTURE 2019-11-21 09:42:00 Hussein Littlejohn [facility] AEROBIC CULTURE 2019-11-21 09:42:00 Hussein Littlejohn [facility] SURGICAL PATHOLOGY REQUEST 2019-11-21 09:11:00 Carla Elaine GA AN ELECTIVE SUPRAGLOTTIC AIRWAY 2019-11-21 08:26:46 Chidi Godwin [facility] DEBRIDEMENT 2019-11-21 08:16:00 Hussein Littlejohn usemily [facility] POC GLUCOSE 2019-11-21 06:05:00 Carla Elaineu stolarisa [facility] BASIC METABOLIC PANEL 2019-11-21 05:55:00 Hussein Littlejohn lla Carlos [facility] ESTIMATED GFR 2019-11-21 05:55:00 Emily Macias Meth odist POC GLUCOSE 2019-11-20 16:40:00 Carla Elaine stolarisa [facility] URINE CULTURE 2019-11-20 12:15:00 Ben Goel URINALYSIS SCREEN AND MICROSCOPY, WITH REFLEX TO CULTURE 202 11:58:00 Ben Goel [facility] POC GLUCOSE 2019-11-20 10:43:00 Carla Elaineu stolarisa [facility] POC GLUCOSE 2019-11-20 05:21:00 Carla Elaineu stolarisa [facility] CT PELVIS W CONTRAST 2019-11-19 22:24:41 Riley Huertau stolarisa [facility] POC GLUCOSE 2019-11-19 20:48:00 Carla Elaineu ston [facility] POC GLUCOSE 2019-11-19 15:54:00 Carla Elaine Amna ston [facility] POC GLUCOSE 2019-11-19 11:35:00 Carla Elaine Amna ston [facility] TTE COMPLETE, WO CONTRAST, W DOPPLER (49408) 2019-11-19 09:0 1:07 Keyla Bailey [facility] POC GLUCOSE 2019-11-19 05:33:00 Carla Elaineu ston [facility] POC GLUCOSE 2019-11-18 20:38:00 Carla Elaine Amna ston [facility] POC GLUCOSE 2019-11-18 16:34:00 Carla Elaine PV [...] CULTURE, AEROBIC & ANAEROBIC 2019-11-17 14:28:00 Theresa Gole COMPREHENSIVE METABOLIC PANEL 2019-11-17 14:28:00 Ben Goel HC COMPLETE BLD COUNT W/AUTO DIFF 2019-11-17 14:28:00 Elizabeth Goel PROTHROMBIN TIME WITH INR 2019-11-17 14:28:00 Ben Goel PARTIAL THROMBOPLASTIN TIME (PTT) 2019-11-17 14:28:00 Elizabeth Goel B NATRIURETIC PEPTIDE 2019-11-17 14:28:00 Ben Goel uston [facility] TROPONIN 2019-11-17 14:28:00 Ben Goel LACTIC ACID LEVEL, SEPSIS - NOW AND REPEAT 2X EVERY 3 HOURS 2019-11-17 14:28:00 Ben Goel ESTIMATED GFR 2019-11-17 14:28:00 Ben Goel ECG 12-LEAD 2019-11-17 14:14:47 Ben Goel Ultrasound, renal 2019-09-20 00:00:00 [facility] Ultrasound guidance for vascular access 2019-09-19 00:00:00 [facility] CT of abdomen and pelvis without contrast 2019-09-18 00:00:00 [facility] Plan of Care Planned Activity Planned Date Details Comments Source Future Scheduled Test 2020-12-19 00:00:00 DIABETIC FOOT EXAM [code = DIABETIC FOOT EXAM] [facility] Future Scheduled Test 2005 00:00:00 65+ PNEUMOCOCCAL V ACCINE (1 of 1 - PPSV23) [code = 65+ PNEUMOCOCCAL VACCINE (1 of 1 - PPSV23)] [facility] Future Scheduled Test 1990 00:00:00 SHINGLES VACCINES (#1) [code = SHINGLES VACCINES (#1)] [facility] Future Scheduled Test 1950 00:00:00 DIABETES: RETINAL EYE EXAM [code = DIABETES: RETINAL EYE EXAM] [facility] Future Scheduled Test 1950 00:00:00 URINE MICROALBUMIN [code = URINE MICROALBUMIN] Carlos Abrams Encounters Start Date/Time End Date/Time [facility] Source 2019-12-15 00:00:00 2020-02-04 00:00:00 Inpatient KAMRYN ALBERT [id number] [facility] 2019-11-17 00:00:00 2019-12-15 00:00:00 Inpatient Zayra ELAINE [facility] [id number] [facility] 2018-12-29 15:48:00 2018-12-29 19:20:00 Departed Emergency Room [address] [facility] [id number] [facility] 2018-10-27 15:38:00 2018-11-07 19:57:00 Discharged Inpatient 1 SHERIDAN MAHONEY [facility] [id number] [facility] 2018-09-08 17:34:00 2018-09-08 20:51:00 Departed Emergency Room [facility] [id number] [facility] 2018-09-04 20:34:00 2018-09-07 16:50:00 Discharged Inpatient 1 BRI RENEE [facility] [id number] [facility] 2018-06-23 18:17:00 2018-06-26 17:53:00 Discharged Inpatient 1 SHERIDAN MAHONEY [facility] [id number] [facility] Results Test Description Test Time Test Comments Results Result Comments Source CHEST SINGLE (PORTABLE) 2020-02-18 [facility]:29[facility] 1940 Sex: M [facility] [address] [address] Patient Name: SHAHRIAR LEAL MR #: [id number] : 1940 Age/Sex: 79/M Req #: [id number] Adm Physician: JEREMY MCGINNIS MD Ordered by: JEREMY MCGINNIS MD Report #: [id number] Location: MED/SURG2 Room/Bed: [facility] Procedure: [id number] DX/CHEST SINGLE (PORTABLE) Exam Date: 02/18/20 Exam Time: 2051 REPORT STATUS: Signed EXAMINATION: CHEST SINGLE (PORTABLE) INDICATION: PICC LINE VERIFICATION [id number] COMPARISON: Chest x-ray on 09/21/2019. FINDINGS: The bilateral costophrenic sulcus are excluded from ansnq-lv-mgak. TUBES and LINES: Right PICC which terminates [...] Test Item POC glucose (test code = 56423-9) 180 mg/dL 65-99 H Point of Care Testing performed at [facility],[address], [place], [place] [address]Nndtenxw Name: Ryan Broderick ID: [id number]: HMW Notified cloth seconds sorter Interpretation (test code = 34150-3) Abnormal [facility] metabolic [id number] 06:57:03* Test Item Value Reference Range Interpretation Comments Sodium (test code = 2951-2) 138 135- 148 mEq/L Potassium (test code = 2823-3) 4.9 3.5- 5.0 mEq/L Chloride (test code = 5-0) 103 99- 109 mEq/L CO2 (test code = 2027-9) 26 24- 31 mEq/L Anion gap (test code = 39217-6) 9@ANIO 7- 15 mEq/L BUN (test code = 3094-0) 54 mg/dL 8-24 H Creatinine (test code = 2160-0) 0.73 mg/dL 0.7-1.2 Glucose (test code = 2345-7) 141 mg/dL 65-99 H Calcium (test code = 25311-6) 9.1 mg/dL 8.6-10.6 Lab Interpretation (test code = 44520-3) [facility]normal [facility] [id number] 06:57:03* Test Item Value Reference Range Interpretation Comments Estimated GFR (test code = 5488) 88 mL/min/1.73 m2 Catergory Units InterpretationG1 >=90 Normal or highG2 60-89 Mildly mzubqcsiyI6j 45-59 Mildly to moderately bsfeibiclR4v 30-44 Moderately to severely decreasedG4 15-29 Severely decreasedG5 <15 Kidney failureThe eGFR was calculated using the Chronic Kidney Disease Epidemiology Collaboration (CKD-EPI) equation. Interpretation is based on recommendations of the National Kidney Foundation-Kidney Disease Outcomes Quality Initiative (NKF-KDOQI) published in 2014. [facility] [id number] 06:52:53* Test Item Value Reference Range Interpretation Comments WBC (test code = 19678-8) 8.62 4.50- 11.00 k/uL RBC (test code = 46585-3) 3.13 m/uL 4.4-6 L HGB (test code = 718-7) 8.5 g/dL 14-18 L HCT (test code = 4544-3) 27.8 % 41-51 L MCV (test code = 787-2) 88.8 fL 82-100 MCH (test code = 785-6) 27.2 pg 27-34 MCHC (test code = 786-4) 30.6 g/dL 31-37 L RDW - SD (test code = 21450-9) 55.7 fL 37-55 H MPV (test code = 16613-5) 11.7 fL 8.8-13.2 Platelet count (test code = 84159-7) 209 150- 400 k/uL Lab Interpretation (test code = 72273-5) [facility] and [id number] 07:30:50* Test Item Value Reference Range Interpretation Comments WBC (test code = 96203-1) 8.65 4.50- 11.00 k/uL RBC (test code = 13561-1) 2.57 m/uL 4.4-6 L HGB (test code [...] 31-37 RDW - SD (test code = 02346-7) 54.7 fL 37-55 MPV (test code = 90146-3) 11.8 fL 8.8-13.2 Platelet count (test code = 47652-0) 188 150- 400 k/uL Neutrophils (test code = 33451-2) 41.1 % 39-69 Lymphocytes (test code = 67881-6) 43.9 % 25-45 Monocytes (test code = 27108-2) 13.1 % 0-10 H Eosinophils (test code = 14575-1) 1.0 % 0-5 Basophils (test code = 19893-1) 0.3 % 0-1 Immature granulocytes (test code = 47506-8) 0.6 % 0-1 Lab Interpretation (test code = 05136-6) [facility]normal [facility] [id number] 19:46:25* Test Item Value Reference Range Interpretation Comments Interpretation (test code = 8721695) Negative results do not preclude 2019-nCoV infection and should not be used as the sole basis for treatment or other patient management decisions. Negative results must be combined with clinical observations, patient history, and epidemiological information. COVID-19 qualitative PCR result (test code = 62791-0) Not-Detect ed Not-Detected COVID-19 qualitative PCR (test code = 7070) See link below for P DF Lab Report [facility] [id number] 07:21:16* Test Item Value Reference Range Interpretation Comments TSH (test code = 3016-3) 6.27 0.55- 4.78 uIU/mL H Lab Interpretation (test code = 80972-1) [facility]normal [facility] [id number] 07:18:27* Test Item Value Reference Range Interpretation Comments Sodium (test code = 2951-2) 135 135- 148 mEq/L Potassium (test code = 2823-3) 4.6 3.5- 5.0 mEq/L Chloride (test code = 2075-0) 98 99- 109 mEq/L L CO2 (test code = 2027-9) 26 24- 31 mEq/L Anion gap (test code = 25465-5) 11@ANIO 7- 15 mEq/L BUN (test code = 3094-0) 38 mg/dL 8-24 H Creatinine (test code = 2160-0) 0.65 mg/dL 0.7-1.2 L Glucose (test code = 2345-7) 150 mg/dL 65-99 H Calcium (test code = 47532-3) 8.8 mg/dL 8.6-10.6 Protein (test code = [...] <0.3 0.2-1.2 Lab Interpretation (test code = 82373-0) Abnormal [facility] [id number] 07:18:27* Test Item Value Reference Range Interpretation Comments Magnesium (test code = 98067-9) 1.6 mg/dL 1.7-2.4 L Lab Interpretation (test code = 68579-6) Abnormal [facility] [id number] 07:18:27* Test Item Value Reference Range Interpretation Comments Phosphorus (test code = 2777-1) 3.7 mg/dL 2.5-4.8 [facility]Creatine kinase, total (CPK)2020-01-18 07:06:30* Test Item Value Reference Range Interpretation Comments Creatine kinase (test code = 2157-6) 23 U/L 35-200 L Lab Interpretation (test code = 13343-5) Abnormal [facility] MethodistUrinalysis, automated with [id number] 07:01:27* Test Item Value Reference Range Interpretation Comments Color, UA (test code = 5778-6) Yellow Appearance, UA (test code = 5767-9) Clear Specific gravity, UA (test code = 5811-5) 1.019 1.001-1.035 pH, UA (test code = 5803-2) 5.0 5.0-8.5 Protein, UA (test code = 23469-0) 1+ Negative A Glucose, UA (test code = 77603-8) Negative Negative Ketones, UA (test code = 2514-8) Trace Negative A Bilirubin, UA (test code = 5770-3) Negative Negative Blood, UA (test code = 5794-3) Negative Negative Nitrite, UA (test code = 5802-4) Negative Negative Urobilinogen, UA (test code = 13473-0) <2.0 <2.0 Leukocyte esterase, UA (test code = 5799-2) Negative Negative Epithelial cells, UA (test code = 5787-7) <1 /HPF WBC, UA (test code = 5821-4) 4 0- 1 /HPF H RBC, UA (test code = 90648-5) 8 0- 5 /HPF H Bacteria, UA (test code = 64746-7) None seen None seen Hyaline casts, UA (test code = 5796-8) 3-5/lpf /LPF Yeast, UA (test code = 58558-7) None seen Yeast with pseudohyphae, UA (test code = 64127-4) None seen Lab Interpretation (test code = 91298-6) Abnormal [facility] [id number] 04:31:12* Test Item Value Reference Range Interpretation Comments Urine culture isolate (test code = 27224-2) Mixed tico <=10-3 col/ cc Specimen InformationSpecimen Source: UrineSpecimen Site: Catheterized Lincoln MethodistUrinalysis screen and microscopy, with reflex to culture 2020-01-05 20:30:32* Test Item Value Reference Range Interpretation Comments Specimen site (test code = 5102983) Catheterized Color, UA (test code = 5778-6) Yellow Appearance, UA (test code = 5767-9) Sl Cloudy Specific gravity, UA (test code = 5811-5) 1.024 1.001-1.035 pH, UA (test code = 5803-2) 5.0 5.0-8.5 Protein, UA (test code = 12916-6) 1+ Negative A Glucose, UA (test code = 95698-9) Negative Negative Ketones, UA (test code = 2514-8) Trace Negative A Bilirubin, UA (test code = 5770-3) Negative Negative Blood, UA (test code = 5794-3) Negative Negative Nitrite, UA (test code = 5802-4) Negative Negative Urobilinogen, UA (test code = 48050-9) <2.0 <2.0 Leukocyte esterase, UA (test code = 5799-2) Large Negative A WBC, UA (test code = 5821-4) 129 0- 1 /HPF H RBC, UA (test code = 52848-0) 18 0- 5 /HPF H Bacteria, UA (test code = 14645-3) Few None seen Yeast, UA (test code = 37759-4) None seen Yeast with pseudohyphae, UA (test code = 65723-6) None seen Hyaline casts, UA (test code = 5796-8) 3-5/lpf /LPF Lab Interpretation (test code = 50154-7) Abnormal [facility] MethodistPrepare RBC, 1 Prlxx5064-97-99 20:59:00* Test Item Value Reference Range Interpretation Comments Product name (test code = 25) Red Blood Cells -1, Leukored Unit number (test code = 7881000) [id number] Product code (test code = 3092) [id number] Dispense status (test code = 24) Transfused Blood expiration date (test code = 302) [id number] Blood type code (test code = 308) 600 Blood type (test code = 1314) A NEGATIVE Compatibility (test code = 6400) Compatible Lincoln MethodistType and neaupt1414-31-19 13:22:00* Test Item Value Reference Range Interpretation Comments ABO grouping (test code = 883-9) A Rh type (test code = 35183-0) NEG Antibody screen (gel) (test code = 890-4) NEG [facility] MethodistOccult blood, eymcc5355-60-69 15:58:16* Test Item Value Reference Range Interpretation Comments Occult blood, stool (test code = 2334-1) Negative for occult blood. Specimen InformationSpecimen Source: StoolSpecimen Site: Nonpreserved [facility] MethodistXR Chest 1 Vw Njexcjav0433-60-28 08:15:32Hm Interface, Radiology Results 12/16/2019 8:18 AM CDTEXAM:XR CHEST 1 VW PORTABLEINDICATION:NEW ADMITCOMPARISON:Chest AP dated 11/17/2019.IMPRESSION: Interval placement right upper extremity PICC with tip at superior cavoatrial ju nction.Otherwise unchanged.Left chest AICD with left subclavian approach leads o verlying right atrium, right ventricle, coronary sinus.Heart size is normal. Mod erate atherosclerosis aortic arch.Moderate degenerative changes thoracic spine.H B-[id number] MethodistECG 12 bncf3302-07-94 21:26:05* Test Item Value Reference Range Interpretation Comments Ventricular rate (test code = 253) 66 Atrial rate (test code = 255) 66 GA interval (test code = 266) 160 QRSD [...] rate has decreased BY 34 BPM- [facility] Mazrgyp5823-44-39 23:59:28Hm Interface, Radiology Results - 12/04/2019 12:02 [...] Revasc Tib Per Initial Vessel W Ather Coje8433-33-93 07:57:49Hm Interface, Radiology Results Incoming - 11/29/2019 8:00 AM CDTPROCEDURE: IR REVASC TIB PER INITIAL VESSEL W ATHER LEFTThis exam was performed in the Radiology department.Fluoro time: 24:31 minutesIMPRESSION:A complete separate report will be issued in operative notes by the performing physician.[id number] MethodistIR Revasc Tib Per W Tla Add-On Ofth4326-67-43 07:57:40Hm Interface, Radiology Results Incoming - 11/29/2019 8:00 AM CDTPROCEDURE: IR REVASC TIB PER W TLA ADD-ON LEFTThis exam was performed in the Radiology department.Fluoro time: 24:31 minutesIMPRESSION:A complete separate report will be issued in operative notes by the performing physician.[id number] MethodistIR Revasc Fem Popl W Ather Uwsd3760-92-61 07:57:25Hm Interface, Radiology Results 11/29/2019 8:00 AM [...] by the performing physician.[id number] MethodistUS Guided Vascular Pnfinp9857-33-90 07:56:58Hm Interface, Radiology Results 11/29/2019 8:00 AM [...] notes by the performing physician.[id number] MethodistIR PICC Naxvfehqz6254-71-11 09:52:14Hm Interface, Radiology Results 11/26/2019 9:55 AM [...] fluoroscopy. The needle was removed and a 5.5-Croatian peel-away sheath was th en placed. A 47 cm long 5-Croatian dual-lumen Power PICC was then deployed over [...] placement of a 47 cm long 5 Croatian dual-lumen Power PICC via th e right basilic vein. The catheter tip lies at the right atrium/superior vena ca va junction .PLAN:- PICC is ready for immediate use.- Recommend routine dressing changes and flushing with 10 cc normal saline after use. [facility]-[id number] MethodistManual slnlsylaxnwh4363-55-40 08:08:17* Test Item Value Reference Range Interpretation Comments Manual differential (test code = 09333-6) PERFORMED Neutrophils (test code = 81966-7) 74.0 % 39-69 H Lymphocytes (test code = 03441-1) 21.0 % 25-45 L Monocytes (test code = 26050-2) 5.0 % 0-10 Eosinophils (test code = 58339-9) 0.0 % 0-5 Basophils (test code = 00656-6) 0.0 % 0-1 Metamyelocytes (test code = 740-1) 0 % Promyelocytes (test code = 783-1) 0 % Platelet slide review (test code = 74434-8) Miya adequate Anisocytosis (test code = 702-1) Moderate Lab Interpretation (test code = 24647-9) Abnormal Lincoln MethodistProthrombin time with RHH9327-46-08 07:20:38* Test Item Value Reference Range Interpretation Comments Prothrombin time (test code = 5902-2) 14.5 11.5- 14.5 sec INR (test code = 86862-2) 1.1 Th e International Normalized Ratio (INR) is a therapeutic monitoring tool for patients who are stable on oral anticoagulant therapy. An INR of 2.0-3.0 is suggested for deep vein thrombosis/pulmonary embolism. Lincoln MethodistPartial thromboplastin time, xeftwnymj4244-01-62 07:20:38* Test Item Value Reference Range Interpretation Comments PTT (test code = 16919-1) 35.9 23.0- 36.0 sec PTT therapeutic range for unfractionated heparin is61.0-112.0 seconds which corresponds to Anti-Xa0.3-0.7 U/ml. Carlos AbramsUs duplex arterial lower lpdrcpujq1610-50-28 14:58:33* Test Item Value Reference Range Interpretation Comments Left tib/per trunk sys PSV (test code = 8492283055) 112 cm/s RT ATIB DIST PSV (test code = 1010436357) 108.20 cm/s RT ATIB MID PSV (test code = 6948101742) 66.20 cm/s RT ATIB PROX PSV (test code = 7163195271) 30.5 cm/s RT PROX FIELD COIL WINDER PSV (test code = 9110271073) 98.6 cm/s LT VIDHI PROX PSV (test code = 4832732802) 52.1 cm/s LT POP DIST PSV (test code = 9723542736) 96.4 cm/s LT POP PROX PSV (test code = 5987399778) 150.8 cm/s LT HOME THEATER EXPERIENCE EXPERT DIST PSV (test code = 9614273702) 0.00 cm/s LT HOME THEATER EXPERIENCE EXPERT MID PSV (test code = 5403369770) 18.50 cm/s LT HOME THEATER EXPERIENCE EXPERT PROX PSV (test code = 2426470327) 100.9 cm/s RT HOME THEATER EXPERIENCE EXPERT DIST PSV (test code = 1521300775) 19.40 cm/s RT HOME THEATER EXPERIENCE EXPERT MID PSV (test code = 2941284087) 19.80 cm/s RT HOME THEATER EXPERIENCE EXPERT PROX PSV (test code = 6461055331) 36.5 cm/s LT SFA DIST PSV (test code = 0901134906) 194.90 cm/s LT SFA MID PSV (test code = 9426842172) 82.6 cm/s LT SFA PROX PSV (test code = 6450774931) 88.1 cm/s RT SFA DIST PSV (test code = 2026883469) 53.1 cm/s RT SFA MID PSV (test code = 3524776913) 71.6 cm/s RT SFA PROX PSV (test code = 7265823725) 74 cm/s L POP MID PSV (test code = 1622103472) 88.70 cm/s L PFA PROX PSV (test code = 7561638649) 106.3 cm/s R PFA PROX PSV (test code = 9790092473) 64.2 cm/s RT DIST FIELD COIL WINDER PSV (test code = 8613932328) 77.7 cm/s LT DIST FIELD COIL WINDER PSV (test code = 5351190547) 119.2 cm/s RT MID VIDHI PSV (test code = 3670808127) 30.1 cm/s KEVIN (test code = KEVIN) [...] Aorta And Bilateral Iliofemoral Runoff W Wo Ybuyzjiu0074-55-83 19:27:22Hm Interface, Radiology Results 11/24/2019 7:30 PM [...] other f indings as described. Please see report.*[id number] MethodistSurgical pathology spmzmkf7849-60-11 13:27:23* Test Item Value Reference Range Interpretation Comments Case number (test code = 1050952) [id number] Surgical pathology report (test code = 2255) See link below for PDF Lab Report Result status (test code = 1246692) This is Final Report for [id number] 5811-66 [facility] MethodistVancomycin level, wyneud8603-68-24 00:18:38* Test Item Value Reference Range Interpretation Comments Vancomycin, trough (test code = 13829-5) 13.0 ug/mL 10-20 Therapeutic Ranges: Peak 30.0 - 40.0 ug/mL Trough 10.0 - 20.0 ug/mL Carlos XkmdmoshvCdztwd9665-72-18 14:03:28Becca Mancilla NP 11/23/2019 2:04 PMAirwayPerformed by: Becca Mancilla NPAuthorized by: Nic Yun MD Location: ORUrgency: ElectiveDifficult Airway: No Anesthesiologist: Nic Yun MDResident/BLUEPRINT MACHINE OPERATOR/AA: Becca Mancilla NPPerformed by: resident/BLUEPRINT MACHINE OPERATOR/AAPreoxygenated with 100% O2: Yes Mask Ventilation: Easy [...] to pain. Atraumatic.Carlos Morris culture, aerobic & ifkmlyuki7199-72-53 17:03:06* Test Item Value Reference Range Interpretation Comments Blood culture isolate (test code = 600-7) No growth after 5 days of incubation. Specimen InformationSpecimen Source: BloodSpecimen Site: Unspecified Carlos MerrittYowzmlquaKoubrf0014-14-61 08:26:46FrChidi ingram MD 11/21/2019 8:26 AMAirwayPerformed by: [...] correlate wi th urinalysis.Other findings as described above.[facility]-UD23DLKFIuyffsy Jehovah'S Witness Transthoracic Echocardiogram Complete, (w Contrast, Strain and 3D if needed) 2019-11-19 10:41:53* Test Item Value Reference Range Interpretation Comments Velocity Ratio (V1/V2) (test code = 4689) 0.33 m/s IVS,d (test code = 0107747202) 1.23 cm Ao root annulus (test code = 7278294628) 3.47 cm EF (test code = 8668036603) 55.22 % LVPWD,d (test code = 9994278856) 1.19 cm AoV Mean PG (test code = 5226175139) 12.05 mmHg AV LVOT peak gradient (test code = 4372767422) 3.03 mmHg MV valve area p 1/2 method (test code = 6862632208) 5.91 cm2 E/A ratio (test code = 2192101805) 0.70 E wave decelartion time (test code = 7695066196) 135.10 msec LVOT Diam,S (test code = 3901874894) 2.36 cm LVOT area (test code = 6840086581) 4.37 cm2 LVOT Vmax (test code = 1107516495) 0.87 m/s LVOT VTI (test code = 3871634859) 0.17 m AoV Peak PG (test code = 4834936056) 27.45 mmHg MV Peak E Catalino (test code = 9794456583) 0.76 m/s MV stenosis pressure 1/2 time (test code = 5891275863) 37.22 ms MV Peak A Catalino (test code = 3016883811) 1.08 m/s LV Vol,s A2C (test code = 9454992473) 38.12 mL LV Vol,d A2C (test code = 7941857667) 76.02 mL AoV Area, Vmax (test code = 3664595696) 1.72 cm2 AoV Area, VTI (test code = 3488194855) 1.88 cm2 AoV Vmax (test code = 3996254067) 2.62 m/s LV,d (test code = 4661329051) 4.57 cm LV,s (test code = 8233983590) 3.26 cm LV Vol,d A4C (test code = 5011531336) 57.69 ml LV Vol,s A4C (test code = 3653069437) 24.32 ml RVSP (TR) (test code = 8493816511) 25.74 mmHg TR Vpeak (test code = 4344616542) 2.48 mm/s MV E A ratio (test code = 6040260525) 0.70 RA pressure (test code = 3568400175) 5.00 mmHg TR pk grad (test code = 2075018733) 21.36 mmHg RVSP (test code = 4736309598) 25.74 mmHg LV SYS VOL (test code = 1092625335) 42.99 ml LV AVILA VOL (test code = 1858545562) 96.01 ml LA diam s (test code = 3215131005) 2.80 cm LV SV Teich 2D (test code = 0015423793) 53.02 ml LVOT SI (test code = 3730755981) 32.23 ml/m2 AoV Cusp sep (test code = 2491954698) 1.18 Aortic Root (test code = 7957783337) 3.50 cm AoV Vmn (test code = 0369622570) 1.70 IVS s 2D (test code = 0778307407) 1.73 LA Ao Ratio Mmode (test code = 2208057715) 0.80 D E excurs (test code = 0495509917) 1.40 E f slope (test code = 3276101987) 0.04 E prime lat (test code = 3217689096) 0.10 E louann sept (test code = 9996364386) 0.08 PV acc T slope (test code = 8212397830) 9.20 PV AT (test code = 2606873325) 93.43 msec SESAY BP EF (test code = 3262816657) 58.00 % AoV VTI (test code = 6553620264) 0.40 m LV EF,A2C (test code = 4946281153) 49.85 % LV EF,A4C (test code = 4623443508) 57.84 % LV EF,BP (test code = 3008341205) 57.58 % [place],d A2C (test code = 3178183498) 7.38 cm [place],d A4C (test code = 6517519938) 8.44 cm [place],s A2C (test code = 4879779284) 7.20 cm [place],s A4C (test code = 1147739611) 7.40 cm LV SV,A2C (test code = 9038742771) 37.89 % LV SV,A4C (test code = 2906965205) 33.37 % LV Vol,d BP (test code = 7373222728) 70.53 ml LV Vol,s BP (test code = 6023092191) 29.92 nl LVOT Vmn (test code = 8929837162) 0.63 Pt Size (test code = 0736468712) 185.42 Pt Wt (test code = 2880194039) 108.86 LVOT mean grad (test code = 1560732103) 1.79 mmHg LVPW s PLAX (test code = 4586565593) 1.58 cm MV Decel slope (test code = 0790826801) 5.65 m/s2 KEVIN (test code = KEVIN) [...] Comments Left arm BP (test code = 9267397579) 116 mmHg Right arm BP (test code = 0310010218) 116 mmHg Left posterior tibial (test code = 6353640367) 255 mmHg Right posterior tibial (test code = 5975309449) 255 mmHg Left toe pressure (test code = 8778115431) 41 mmHg Right toe pressure (test code = 2352306323) 31 mmHg Left Dorsal Pedis BP (test code = 25324693071) 255 mmHg Right Dorsal Pedis (test code = 622343475035) 255 mmHg Left TBI (test code = 3760323673) 0.35 Right TBI (test code = 2744558542) 0.27 KEVIN (test code = KEVIN) Bilateral lower extremity ph ysiologic study with segmental waveforms 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 There is also evidence of femoral and tibial artery disease on the left.Ankle-brachial indices cannot be calculated due to calcified noncompressible arteries. (Clinical correlation)Toe brachial indices suggest moderate to severe distal perfusion deficit. Carlos AbramsXR Foot 3+ Vw Evytg3116-54-25 14:04:39Hm Interface, Radiology Results 11/18/2019 2:07 PM [...] correlation and advanced imaging may be ind icated.HMH-PP13HPJV Carlos MethodistXR Sacrum And Oldjmi5956-66-64 13:49:33Hm Interface, Radiology Results 11/18/2019 1:52 PM CDTStudy:XR SACRUM AND COCCYXHistory:Infection and inflammatory reaction due to other nervous sys tem device implant or graftCOMPARISON:None.IMPRESSION:3 views of the sacrum. Bi lateral SI joints appear patent. No acute fracture or erosions. The sacrum and c occyx are in anatomic alignment. No acute fracture. Pelvic phleboliths present.H [id number] Carlos AbramsMyfhqyxllQpyhukil4602-75-78 20:40:49* Test Item Value Reference Range Interpretation Comments Troponin (test code = 18319-5) 0.006 ng/mL 0-0.04 In patients suspected of [...] OR decreased by less than 0.020 ng/mL Lincoln MethodistLactic acid level, SEPSIS - Now and repeat 2x every 3 hours 2019-11-17 20:30:50* Test Item Value Reference Range Interpretation Comments Lactic acid (test code = 20270-4) 2.3 mmol/L 0.5-2.2 H Lab Interpretation (test code = 99252-2) Abnormal [facility] MethodistVenous blood ukh9641-78-78 15:06:15* Test Item Value Reference Range Interpretation [...] 40-70 L Bicarbonate, venous (test code = 94800-5) 28.1 mmol/L 21-28 H FiO2, inspired O2% (test code = 1389) Unknown % Lab Interpretation (test code = 57253-3) Abnormal Lincoln MethodistB natriuretic wwyayxi5212-88-93 15:05:12* Test Item Value Reference Range Interpretation Comments BNP (test code = 32380-8) 74 pg/mL 0-100 [facility] ED Preliminary Interpretation - Not an Qakcw5183-23-50 14:43:51* Test Item Value Reference Range Interpretation Comments KEVIN (test code = KEVIN) Ben Goel Jr., MD 11/18/2019 3:32 [facility] Preliminary Interpretation - Not an OrderPerformed by: Ben Goel Jr., KIANAuthorized by: Ben Goel Jr., MD ECG reviewed by ED Physician in the absence of a novelty balloon assembler and packer: yes Interpretation: Interpretation: abnormal Rate: ECG rate: 100 ECG rate assessment: normal Rhythm: Rhythm: sinus rhythm and paced Pacing: Type of pacing: VentricularQRS: QRS axis: Normal QRS intervals: Normal Lab Interpretation (test code = 84658-4) Abnormal [facility] MethodistUS GUIDANCE FOR VASCULAR ZVOGO8257-18-54 15:59:00 [facility] [address] [address] Patient Name: SHAHRIAR LEAL MR #: [id number] : 1940 Age/Sex: 78/M Req #: [id number] Adm Physician: SHERIDAN MAHONEY MD Ordered by: HONG NEWSOME MD Report #: [id number] Location: [facility] Room/Bed: [place] [address] Procedure: [id number] US/US GUIDANCE FOR VASCULAR ACCES Exam Date: [...] sterile dressing was ap plied. Catheter placed: [employer] Catheter size (Croatian): 7 Catheter length (cm ): 16 Catheter [...] Count (test code = 6690-2) 9.75 4.8-10.8 [facility] CenterBlood erythrocytes automated count (number/volume)2019-09-24 08:30:00* Test Item Value Reference Range Interpretation Comments Red Blood Count (test code = 789-8) 3.09 4.3-5.7 [facility] CenterBlood hemoglobin measurement (moles/volume)2019-09-24 08:30:00* Test Item Value Reference Range Interpretation Comments Hemoglobin (test code = 65406-8) 9.0 14.0-18.0 [facility] CenterAutomated blood hematocrit (volume fraction)2019-09-24 08:30:00* Test Item Value Reference Range Interpretation Comments Hematocrit (test code = 4544-3) 28.5 38.2-49.6 [facility] CenterAutomated erythrocyte mean corpuscular hybgou0162-37-29 08:30:00* Test Item Value Reference Range Interpretation Comments Mean Corpuscular Volume (test code = 787-2) 92.2 81-99 [facility] CenterAutomated erythrocyte mean corpuscular hemoglobin (mass per erythrocyte)2019-09-24 08:30:00* Test Item Value Reference Range Interpretation Comments Mean Corpuscular Hemoglobin (test code = 785-6) 29.1 28-32 [facility] CenterAutcommunity healthed erythrocyte mean corpuscular hemoglobin concentration measurement (mass/volume)2019-09-24 08:30:00* Test Item Value Reference Range Interpretation Comments Mean Corpuscular Hemoglobin Concent (test code = 786-4) 31.6 31-35 [facility] CenterRDW XacLk-Izh1840-97-26 08:30:00* Test Item Value Reference Range Interpretation Comments Red Cell Distribution Width (test code = 23163-2) 14.5 11.7 -14.4 [facility] CenterAutcommunity healthed blood platelet count (count/volume)2019-09-24 08:30:00* Test Item Value Reference Range Interpretation Comments Platelet Count (test code = 777-3) 244 140-360 [facility] CenterAutomated blood segmented neutrophil count as percentage of total cnagzdicmu9308-64-86 08:30:00* Test Item Value Reference Range Interpretation Comments Neutrophils (%) (Auto) (test code = 38515-7) 53.1 38.7-80.0 [facility] CenterAutomated blood lymphocyte count as percentage ot total nwpeehnfsm2653-69-74 08:30:00* Test Item Value Reference Range Interpretation Comments Lymphocytes (%) (Auto) (test code = 736-9) 29.0 18.0-39.1 [facility] CenterAutomated blood monocyte count as percentage of total oaxrejyqhn6508-68-13 08:30:00* Test Item Value Reference Range Interpretation Comments Monocytes (%) (Auto) (test code = 5905-5) 11.8 4.4-11.3 [facility] CenterAutomated blood eosinophil count as percentage of total tyhlwseuzr1147-13-47 08:30:00* Test Item Value Reference Range Interpretation Comments Eosinophils (%) (Auto) (test code = 713-8) 0.6 0.0-6.0 [facility] CenterAutomated blood basophil count as percentage of total zchwyenfnb9730-71-05 08:30:00* Test Item Value Reference Range Interpretation Comments Basophils (%) (Auto) (test code = 706-2) 0.5 0.0-1.0 [facility] CenterFluoroscopic procedure less than one hour gktzvmpd7243-38-60 08:30:00* Test Item Value Reference Range Interpretation Comments IM GRANULOCYTES % (test code = IM GRANULOCYTES %) 5.0 0.0- 1.0 [facility] CenterAutomated blood neutrophil count 2019-09-24 08:30:00* Test Item Value Reference Range Interpretation Comments Neutrophils # (Auto) (test code = 751-8) 5.2 2.1-6.9 [facility] CenterBlood lymphocytes count (number/volume) 2019-09-24 08:30:00* Test Item Value Reference Range Interpretation Comments Lymphocytes # (Auto) (test code = 54558-0) 2.8 1.0-3.2 [facility] CenterBlood monocytes automated count (number/volume)2019-09-24 08:30:00* Test Item Value Reference Range Interpretation Comments Monocytes # (Auto) (test code = 742-7) 1.2 0.2-0.8 [facility] CenterAutomated blood eosinophil count 2019-09-24 08:30:00* Test Item Value Reference Range Interpretation Comments Eosinophils # (Auto) (test code = 711-2) 0.1 0.0-0.4 [facility] CenterAutomated blood basophil count (count/volume)2019-09-24 08:30:00* Test Item Value Reference Range Interpretation Comments Basophils # (Auto) (test code = 704-7) 0.1 0.0-0.1 [facility] CenterFluoroscopic procedure less than one hour nczwdsvq7507-61-14 08:30:00* Test Item Value Reference Range Interpretation Comments Absolute Immature Granulocyte (auto (jordon t code = Absolute Immature Granulocyte (auto) 0.49 0-0.1 [facility] plasma sodium measurement (moles/volume)2019-09-24 08:30:00* Test Item Value Reference Range Interpretation Comments Sodium Level (test code = 2951-2) 139 136-145 [facility] Hospitalerum or plasma potassium measurement (moles/volume)2019-09-24 08:30:00* Test Item Value Reference Range Interpretation Comments Potassium Level (test code = 2823-3) 3.6 3.5-5.1 [facility] Hospitalerum or plasma chloride measurement (moles/volume)2019-09-24 08:30:00* Test Item Value Reference Range Interpretation Comments Chloride Level (test code = 2075-0) 105 98-107 [facility] Hospitalerum or plasma carbon dioxide, total measurement (moles/volume)2019-09-24 08:30:00* Test Item Value Reference Range Interpretation Comments Carbon Dioxide Level (test code = 2028-9) 27 22-29 [facility] Hospitalerum or plasma anion ggb2624-69-42 08:30:00* Test Item Value Reference Range Interpretation Comments Anion Gap (test code = 34784-8) 10.6 8-16 [facility] Hospitalerum or plasma urea nitrogen measurement (mass/volume)2019-09-24 08:30:00* Test Item Value Reference Range Interpretation Comments Blood Urea Nitrogen (test code = 3094-0) 7 7-26 [facility] Hospitalerum or plasma creatinine measurement (mass/volume)2019-09-24 08:30:00* Test Item Value Reference Range Interpretation Comments Creatinine (test code = 2160-0) 0.90 0.72-1.25 [facility] Hospitalerum or plasma urea nitrogen/creatinine mass ftpqt0451-90-96 08:30:00* Test Item Value Reference Range Interpretation Comments BUN/Creatinine Ratio (test code = 3097-3) 8 6-25 [facility] CenterEstimated glomerular filtration rate (GFR) tstcavepfadkb1353-18-13 08:30:00* Test Item Value Reference Range Interpretation Comments Estimat Glomerular Filtration Rate (test code = 782787890) > 60 >60 Ranges were taken from the National Kidney Disease Education Program and the [facility] literature.Reference ranges:60 or greater: Tmdrek43-83 ( for 3 consecutive months): Chronic kidney disease 15 or less: Kidney failureHCA [facility] Healthcare Medical CenterGlucose ojnjxndobiq3391-19-82 08:30:00* Test Item Value Reference Range Interpretation Comments Glucose Level (test code = ORV2467) 118 74-118 [facility] Hospitalerum or plasma calcium measurement (mass/volume)2019-09-24 08:30:00* Test Item Value Reference Range Interpretation Comments Calcium Level (test code = 87816-7) 7.9 8.4-10.2 [facility] Hospitalerum or plasma total bilirubin measurement (mass/volume)2019-09-24 08:30:00* Test Item Value Reference Range Interpretation Comments Total Bilirubin (test code = 1975-2) 0.3 0.2-1.2 [facility] CenterFluoroscopic procedure less than one hour cutjfxmg8429-07-74 08:30:00* Test Item Value Reference Range Interpretation Comments Aspartate Amino Transf (AST/SGOT) (test code = Aspartate Amino Transf (AST/SGOT)) 47 5-34 [facility] Hospitalerum or plasma alanine aminotransferase measurement (enzymatic activity/volume)2019-09-24 08:30:00* Test Item Value Reference Range Interpretation Comments Alanine Aminotransferase (ALT/SGPT) (test code = 1742-6) 58 0-55 [facility] protein measurement (mass/volume)2019-09-24 08:30:00* Test Item Value Reference Range Interpretation Comments Total Protein (test code = 2885-2) 6.2 6.5-8.1 [facility] albumin measurement (mass/volume)2019-09-24 08:30:00* Test Item Value Reference Range Interpretation Comments Albumin (test code = 1751-7) 2.5 3.5-5.0 [facility] CenterPlasma globulin measurement (mass/volume) 2019-09-24 08:30:00* Test Item Value Reference Range Interpretation Comments Globulin (test code = 04932-1) 3.7 2.3-3.5 [facility] albumin/globulin mass vjbap3548-91-10 08:30:00* Test Item Value Reference Range Interpretation Comments Albumin/Globulin Ratio (test code = 1759-0) 0.7 0.8-2.0 [facility]er[facility] plasma alkaline phosphatase measurement (enzymatic activity/volume)2019-09-24 08:30:00* Test Item Value Reference Range Interpretation Comments Alkaline Phosphatase (test code = 6768-6) 60 40-150 [facility] CenterCapillary blood glucose measurement by glucometer (mass/volume)2019-09-24 08:22:00* Test Item Value Reference Range Interpretation Comments Bedside Glucose (test code = 74457-4) 129 70-120 Meter ID: [id number] [facility] CenterActivated partial thromboplastin time (aPTT) in platelet poor plasma by coagulation assay 2019-09-23 09:00:00* Test Item Value Reference Range Interpretation Comments Activated Partial Thromboplast Time (test code = 53505-2) 32.6 23.8-35.5 [facility] CenterCHEST SINGLE (PORTABLE)2019-09-21 07:06:00 [facility] [address] [place] [address] Patient Name: SHAHRIAR LEAL MR #: [id number] : 1940 Age/Sex: 78/M Req #: [id number] Adm Physician: SHERIDAN MAHONEY MD Ordered by: DORIAN BECKMAN MD Report #: [id number] Location: [facility] Room/Bed: [place] [address] Procedure: [id number] DX/CHEST SINGLE ( PORTABLE) Exam Date: 09/21/19 [...] COPY TO: JOEL BECKMAN MD RENAL RETROPERITONEAL SWDL3251-73-56 17:28:00 [place] [address] Patient Name: SHAHRIAR LEAL MR #: [id number] : 1940 Age/Sex: 78/M Req #: [id number] Adm Physician: SHERIDAN MAHONEY MD Ordered by: HARINDER MIRZA MD Report #: [id number] Location: [facility] Room/Bed: [place] [address] Procedure: [id number] US/US RENAL RETROP ERITONEAL COMP Exam Date: [...] MD Fluoroscopic procedure less than one hour mulduvqu8212-73-72 04:40:00* Test Item Value Reference Range Interpretation Comments Differential Total Cells Counted (test code = Differaixa tial Total Cells Counted) 100 [facility] blood neutrophils/100 leukocytes 2019-09-20 04:40:00* Test Item Value Reference Range Interpretation Comments Neutrophils % (Manual) (test code = 44899-4) 71 40-74 [facility] blood lymphocytes/100 leukocytes 2019-09-20 04:40:00* Test Item Value Reference Range Interpretation Comments Lymphocytes % (Manual) (test code = 737-7) 15 19-48 [facility] blood monocytes/100 leukocytes 2019-09-20 04:40:00* Test Item Value Reference Range Interpretation Comments Monocytes % (Manual) (test code = 744-3) 12 3.4-9.0 [facility] CenterManual blood myelocytes/100 leukocytes 2019-09-20 04:40:00* Test Item Value Reference Range Interpretation Comments Myelocytes % (test code = 749-2) 2 0-0 [facility] CenterBlood platelets count by estimate (number/volume)2019-09-20 04:40:00* Test Item Value Reference Range Interpretation Comments Platelet Estimate (test code = 31844-9) ADEQUATE [facility] CenterPlatelet mqqqhljpbz6447-61-37 04:40:00* Test Item Value Reference Range Interpretation Comments Platelet Morphology Comment (test code = 33181-0) NORMAL [facility] CenterRB vwebdccbzr5050-05-25 04:40:00* Test Item Value Reference Range Interpretation Comments Red Cell Morphology Comment (test code = 6742-1) NORMAL [facility] uric acid measurement (mass/volume)2019-09-20 04:40:00* Test Item Value Reference Range Interpretation Comments Uric Acid (test code = 3084-1) 6.3 4.8-8.0 [facility] plasma magnesium measurement (mass/volume)2019-09-20 04:40:00* Test Item Value Reference Range Interpretation Comments Magnesium Level (test code = 56607-6) 1.2 1.3-2.1 [facility] plasma triglyceride measurement (mass/volume)2019-09-20 04:40:00* Test Item Value Reference Range Interpretation Comments Triglycerides Level (test code = 2571-8) 175 0-149 [facility]er[facility] plasma cholesterol measurement (mass/volume)2019-09-20 04:40:00* Test Item Value Reference Range Interpretation Comments Cholesterol Level (test code = 2093-3) 201 0-199 Less than 200 mg/dL Low Wvov300 - 239 mg/dL Borderline Ttzu976 m g/dl and greater High Risk [facility] cholesterol in LDL measurement (mass/volume) 2019-09-20 04:40:00* Test Item Value Reference Range Interpretation Comments LDL Cholesterol (test code = 2089-1) 143 60-130 [facility]er[facility] cholesterol in HDL measurement (mass/volume)2019-09-20 04:40:00* Test Item Value Reference Range Interpretation Comments HDL Cholesterol (test code = 2085-9) 23 40-60 [facility] plasma total cholesterol/cholesterol in HDL mass pocdo3502-76-22 04:40:00* Test Item Value Reference Range Interpretation Comments Cholesterol/HDL Ratio (test code = 9830-1) 8.7 3.9-4.7 [facility] CenterBacterial urine toddxss7918-38-16 21:35:00* Test Item Value Reference Range Interpretation Comments Urine Culture (test code = 630-4) SHANA ALBICANS [facility] CenterCHEST XRAY LINE OFUPOQBUX6228-00-03 13:38:00 [place] [address] Patient Name: SHAHRIAR LEAL MR #: [id number] : 1940 Age/Sex: 78/M Req #: [id number] Adm Physician: SHERIDAN MAHONEY MD Ordered by: DORIAN BECKMAN MD Report #: [id number] Location: ICU Room/Bed: [place] [address] Procedure: [id number] DX/CHEST XRAY JEFRY E PLACEMENT Exam Date: [...] (PT) in platelet poor plasma by coagulation icxaj3880-82-23 11:40:00* Test Item Value Reference Range Interpretation Comments Prothrombin Time (test code = 5902-2) 14.1 11.9-14.5 [facility] CenterINR in Platelet poor plasma by Coagulation pjryw4397-78-99 11:40:00* Test Item Value Reference Range Interpretation Comments Prothromb Time International Ratio (test code = 6301-6) 1.03 Oral Anticoagulant Therapy INR Values:1. Low Intensity Therapy 1.5 - 2.02 . Moderate Intensity Therapy 2.0 - 3.03. High Intensity Therapy(1) 2.5 - 3. 54. High Intensity Therapy(2) 3.0 - 4.05. Panic Value INR > 5.0 [facility] CenterFluoroscopic procedure less than one hour dicemtbc6594-77-95 11:40:00* Test Item Value Reference Range Interpretation Comments Lactic Acid Level (test code = Lactic Acid Level) 1.7 0.5- 2.0 [facility] CenterBNP Rut-hMyy0888-34-21 11:40:00* Test Item Value Reference Range Interpretation Comments B-Type Natriuretic Peptide (test code = 05640-1) 18.4 0-100 [facility]er[facility] or plasma creatine kinase measurement (enzymatic activity/volume)2019-09-19 11:40:00* Test Item Value Reference Range Interpretation Comments Creatine Kinase (test code = 2157-6) 51 30-200 [facility] Hospitalerum or plasma creatine kinase MB measurement (mass/volume)2019-09-19 11:40:00* Test Item Value Reference Range Interpretation Comments Creatine Kinase MB (test code = 08843-6) 0.50 0-5.0 [facility] CenterTroponin I measurement by highly sensitive enzyme etnfoadnmql1826-50-00 11:40:00* Test Item Value Reference Range Interpretation Comments Troponin I (test code = 92012-2) 0.007 0-0.300 [facility] CenterBlood fidxqqn0340-19-60 11:40:00* Test Item Value Reference Range Interpretation Comments Blood Culture (test code = 41554084) NO GROWTH AFTER 5 DAYS, FINAL REPORT [facility] CenterFluoroscopic procedure less than one hour bhjyjftv1682-37-09 07:40:00* Test Item Value Reference Range Interpretation Comments Hemoglobin A1c Percent (test code = Hemoglobin A1c Percent) 8.0 4.0-7.0 [facility] CenterFluoroscopic procedure less than one hour cxdsxuwz6423-36-59 22:58:00* Test Item Value Reference Range Interpretation [...] complexity tests.Testing performed by [facility] [address] [place], [place] [phone] Director: Hal Ng M.D.CLIA # [id number] [facility]LV[place]8945-76-27 20:43:00 [place] [address] Patient Name: SHAHRIAR LEAL MR #: [id number] : 1940 Age/Sex: 78/M Req #: [id number] Adm Physician: Ordered by: GRACE HERRERA DO Report #: [id number] Location: ER Room/Bed: Procedure: CT/CT ABDOMEN/PE LVIS [...] DO Fluoroscopic procedure less than one hour mkskbxci9867-41-63 20:30:00* Test Item Value Reference Range Interpretation Comments Lactic Acid Level (test code = Lactic Acid Level) 1.6 0.5- 2.0 [facility] CenterUrine color ajdtjnlakpeyk1670-88-31 19:17:00* Test Item Value Reference Range Interpretation Comments Urine Color (test code = 5778-6) YELLOW YELLOW [facility] CenterUrine fveoawd7678-47-92 19:17:00* Test Item Value Reference Range Interpretation Comments Urine Clarity (test code = 13704-2) SL CLOUDY CLEAR [facility] Hospitalpecific gravity of Urine by Test strip 2019-09-18 19:17:00* Test Item Value Reference Range Interpretation Comments Urine Specific [place] (test code = 5811-5) 1.020 1.010-1.02 5 [facility] CenterUrine pH measurement by automated test prprg9727-08-12 19:17:00* Test Item Value Reference Range Interpretation Comments Urine pH (test code = 67318-0) 5.5 5-7 [facility] CenterUrine leukocyte esterase detection by fkhkixlv2572-53-99 19:17:00* Test Item Value Reference Range Interpretation Comments Urine Leukocyte Esterase (test code = 5799-2) LARGE NEGATIVE [facility] CenterUrine nitrite wgdundlpf6194-51-56 19:17:00* Test Item Value Reference Range Interpretation Comments Urine Nitrite (test code = 05961-7) POSITIVE NEGATIVE [facility] CenterUrine protein measurement by test strip (mass/volume)2019-09-18 19:17:00* Test Item Value Reference Range Interpretation Comments Urine Protein (test code = 5804-0) 2+ NEGATIVE [facility] CenterUrine glucose qruhroets5380-04-96 19:17:00* Test Item Value Reference Range Interpretation Comments Urine Glucose (UA) (test code = 2349-9) 2+ NEGATIVE [facility] CenterUrine ketones detection by automated test jlusc1025-89-76 19:17:00* Test Item Value Reference Range Interpretation Comments Urine Ketones (test code = 33823-9) 1+ NEGATIVE [facility] CenterUrine urobilinogen measurement by test strip (mass/volume)2019-09-18 19:17:00* Test Item Value Reference Range Interpretation Comments Urine Urobilinogen (test code = 09709-2) 1 0.2-1 [facility] CenterUrine total bilirubin measurement (mass/volume)2019-09-18 19:17:00* Test Item Value Reference Range Interpretation Comments Urine Bilirubin (test code = 1978-6) NEGATIVE NEGATIVE [facility] CenterUrine erythrocytes llhdllvbo2196-55-93 19:17:00* Test Item Value Reference Range Interpretation Comments Urine Blood (test code = 64956-1) MODERATE NEGATIVE [facility] CenterAutomated urine sediment leukocyte count by microscopy (number/high power field)2019-09-18 19:17:00* Test Item Value Reference Range Interpretation Comments Urine WBC (test code = 5821-4) >50 0-5 [facility] CenterErythrocytes detection in urine sediment by light ankqfqfbcd3274-57-43 19:17:00* Test Item Value Reference Range Interpretation Comments Urine RBC (test code = 41103-6) 21-50 0-5 [facility] CenterBacteria detection in urine sediment by light mopdsvyejj2109-28-83 19:17:00* Test Item Value Reference Range Interpretation Comments Urine Bacteria (test code = 83965-1) FEW NONE [facility] CenterEpithelial cells detection in urine sediment by light rbysepmkmt7420-00-48 19:17:00* Test Item Value Reference Range Interpretation Comments Urine Epithelial Cells (test code = 84025-4) FEW NONE [facility] CenterUrine color hglfufojuxhdp5554-30-60 19:17:00* Test Item Value Reference Range Interpretation Comments Urine Color (test code = 5778-6) YELLOW YELLOW [facility] CenterUrine vlsfwrv0833-08-54 19:17:00* Test Item Value Reference Range Interpretation Comments Urine Clarity (test code = 78220-0) SL CLOUDY CLEAR [facility] Hospitalpecific gravity of Urine by Test strip 2019-09-18 19:17:00* Test Item Value Reference Range Interpretation Comments Urine Specific [place] (test code = 5811-5) 1.020 1.010-1.02 5 [facility] CenterUrine pH measurement by automated test odtye5652-77-45 19:17:00* Test Item Value Reference Range Interpretation Comments Urine pH (test code = 27709-5) 5.5 5-7 [facility] CenterUrine leukocyte esterase detection by vlwxyoig1614-32-37 19:17:00* Test Item Value Reference Range Interpretation Comments Urine Leukocyte Esterase (test code = 5799-2) LARGE NEGATIVE [facility] CenterUrine nitrite evvlbmfnu4082-64-50 19:17:00* Test Item Value Reference Range Interpretation Comments Urine Nitrite (test code = 15129-5) POSITIVE NEGATIVE [facility] CenterUrine protein measurement by test strip (mass/volume)2019-09-18 19:17:00* Test Item Value Reference Range Interpretation Comments Urine Protein (test code = 5804-0) 2+ NEGATIVE [facility] CenterUrine glucose oyndrlgda4592-55-62 19:17:00* Test Item Value Reference Range Interpretation Comments Urine Glucose (UA) (test code = 2349-9) 2+ NEGATIVE [facility] CenterUrine ketones detection by automated test xwafh0229-21-22 19:17:00* Test Item Value Reference Range Interpretation Comments Urine Ketones (test code = 65149-3) 1+ NEGATIVE [facility] CenterUrine urobilinogen measurement by test strip (mass/volume)2019-09-18 19:17:00* Test Item Value Reference Range Interpretation Comments Urine Urobilinogen (test code = 06754-7) 1 0.2-1 [facility] CenterUrine total bilirubin measurement (mass/volume)2019-09-18 19:17:00* Test Item Value Reference Range Interpretation Comments Urine Bilirubin (test code = 1978-6) NEGATIVE NEGATIVE [facility] CenterUrine erythrocytes phkjoqtrg2319-48-00 19:17:00* Test Item Value Reference Range Interpretation Comments Urine Blood (test code = 55135-9) MODERATE NEGATIVE [facility] CenterAutomated urine sediment leukocyte count by microscopy (number/high power field)2019-09-18 19:17:00* Test Item Value Reference Range Interpretation Comments Urine WBC (test code = 5821-4) >50 0-5 [facility] CenterErythrocytes detection in urine sediment by light jsmdnfleab2371-41-19 19:17:00* Test Item Value Reference Range Interpretation Comments Urine RBC (test code = 88253-4) 21-50 0-5 [facility] CenterBacteria detection in urine sediment by light imqnxdxbbi4825-23-05 19:17:00* Test Item Value Reference Range Interpretation Comments Urine Bacteria (test code = 05418-9) FEW NONE [facility] CenterEpithelial cells detection in urine sediment by light byjytkgjje2939-65-20 19:17:00* Test Item Value Reference Range Interpretation Comments Urine Epithelial Cells (test code = 59488-8) FEW NONE [facility] CenterBlood leukocytes automated count (number/volume)2019-09-18 18:52:00* Test Item Value Reference Range Interpretation Comments White Blood Count (test code = 6690-2) 16.32 4.8-10.8 [facility] CenterBlood erythrocytes automated count (number/volume)2019-09-18 18:52:00* Test Item Value Reference Range Interpretation Comments Red Blood Count (test code = 789-8) 4.19 4.3-5.7 [facility] CenterBlvirginia hospital hemoglobin measurement (moles/volume)2019-09-18 18:52:00* Test Item Value Reference Range Interpretation Comments Hemoglobin (test code = 22647-6) 12.3 14.0-18.0 [facility] CenterAutomated blood hematocrit (volume fraction)2019-09-18 18:52:00* Test Item Value Reference Range Interpretation Comments Hematocrit (test code = 4544-3) 37.3 38.2-49.6 [facility] CenterAutomated erythrocyte mean corpuscular pkahqj8287-75-30 18:52:00* Test Item Value Reference Range Interpretation Comments Mean Corpuscular Volume (test code = 787-2) 89.0 81-99 [facility] CenterAutomated erythrocyte mean corpuscular hemoglobin (mass per erythrocyte)2019-09-18 18:52:00* Test Item Value Reference Range Interpretation Comments Mean Corpuscular Hemoglobin (test code = 785-6) 29.4 28-32 [facility] CenterAutomated erythrocyte mean corpuscular hemoglobin concentration measurement (mass/volume)2019-09-18 18:52:00* Test Item Value Reference Range Interpretation Comments Mean Corpuscular Hemoglobin Concent (test code = 786-4) 33.0 31-35 [facility] CenterRDW LzpTl-Bvk8500-12-20 18:52:00* Test Item Value Reference Range Interpretation Comments Red Cell Distribution Width (test code = 18303-3) 14.2 11.7 -14.4 [facility] CenterAutomated blood platelet count (count/volume)2019-09-18 18:52:00* Test Item Value Reference Range Interpretation Comments Platelet Count (test code = 777-3) 234 140-360 [facility] CenterAutcommunity healthed blood segmented neutrophil count as percentage of total mlvovosxcm2784-75-67 18:52:00* Test Item Value Reference Range Interpretation Comments Neutrophils (%) (Auto) (test code = 48853-0) 73.8 38.7-80.0 [facility] CenterAutomated blood lymphocyte count as percentage ot total azodvdnllx0310-84-29 18:52:00* Test Item Value Reference Range Interpretation Comments Lymphocytes (%) (Auto) (test code = 736-9) 12.4 18.0-39.1 [facility] CenterAutomated blood monocyte count as percentage of total yfkapgndwp1525-40-72 18:52:00* Test Item Value Reference Range Interpretation Comments Monocytes (%) (Auto) (test code = 5905-5) 11.5 4.4-11.3 [facility] CenterAutomated blood eosinophil count as percentage of total cxhosqmgog0178-11-21 18:52:00* Test Item Value Reference Range Interpretation Comments Eosinophils (%) (Auto) (test code = 713-8) 0.1 0.0-6.0 [facility] CenterAutomated blood basophil count as percentage of total iqbxxmuodb0921-22-01 18:52:00* Test Item Value Reference Range Interpretation Comments Basophils (%) (Auto) (test code = 706-2) 0.3 0.0-1.0 [facility] CenterFluoroscopic procedure less than one hour pnwppqrl8792-89-78 18:52:00* Test Item Value Reference Range Interpretation Comments IM GRANULOCYTES % (test code = IM GRANULOCYTES %) 1.9 0.0- 1.0 [facility] CenterAutomated blood neutrophil count 2019-09-18 18:52:00* Test Item Value Reference Range Interpretation Comments Neutrophils # (Auto) (test code = 751-8) 12.0 2.1-6.9 [facility] CenterBlood lymphocytes count (number/volume) 2019-09-18 18:52:00* Test Item Value Reference Range Interpretation Comments Lymphocytes # (Auto) (test code = 11058-6) 2.0 1.0-3.2 [facility] CenterBlvirginia hospital monocytes automated count (number/volume)2019-09-18 18:52:00* Test Item Value Reference Range Interpretation Comments Monocytes # (Auto) (test code = 742-7) 1.9 0.2-0.8 [facility] CenterAutomated blood eosinophil count 2019-09-18 18:52:00* Test Item Value Reference Range Interpretation Comments Eosinophils # (Auto) (test code = 711-2) 0.0 0.0-0.4 [facility] CenterAutomated blood basophil count (count/volume)2019-09-18 18:52:00* Test Item Value Reference Range Interpretation Comments Basophils # (Auto) (test code = 704-7) 0.1 0.0-0.1 [facility] CenterFluoroscopic procedure less than one hour mkqvaaby8441-11-80 18:52:00* Test Item Value Reference Range Interpretation Comments Absolute Immature Granulocyte (auto (jordon t code = Absolute Immature Granulocyte (auto) 0.31 0-0.1 [facility]er[facility] or plasma sodium measurement (moles/volume)2019-09-18 18:52:00* Test Item Value Reference Range Interpretation Comments Sodium Level (test code = 2951-2) 133 136-145 [facility] Hospitalerum or plasma potassium measurement (moles/volume)2019-09-18 18:52:00* Test Item Value Reference Range Interpretation Comments Potassium Level (test code = 2823-3) 4.2 3.5-5.1 [facility] Hospitalerum or plasma chloride measurement (moles/volume)2019-09-18 18:52:00* Test Item Value Reference Range Interpretation Comments Chloride Level (test code = 2075-0) 92 98-107 [facility] Hospitalerum or plasma carbon dioxide, total measurement (moles/volume)2019-09-18 18:52:00* Test Item Value Reference Range Interpretation Comments Carbon Dioxide Level (test code = 2028-9) 29 22-29 [facility] Hospitalerum or plasma anion tpx2507-62-59 18:52:00* Test Item Value Reference Range Interpretation Comments Anion Gap (test code = 94152-0) 16.2 8-16 [facility] Hospitalerum or plasma urea nitrogen measurement (mass/volume)2019-09-18 18:52:00* Test Item Value Reference Range Interpretation Comments Blood Urea Nitrogen (test code = 3094-0) 15 7-26 [facility] Hospitalerum or plasma creatinine measurement (mass/volume)2019-09-18 18:52:00* Test Item Value Reference Range Interpretation Comments Creatinine (test code = 2160-0) 1.93 0.72-1.25 [facility] Hospitalerum or plasma urea nitrogen/creatinine mass lroau4517-58-87 18:52:00* Test Item Value Reference Range Interpretation Comments BUN/Creatinine Ratio (test code = 3097-3) 8 6- [facility] CenterEstimated glomerular filtration rate (GFR) qynzcvknrrpud5377-11-14 18:52:00* Test Item Value Reference Range Interpretation Comments Estimat Glomerular Filtration Rate (test code = 541227555) 34 >60 Ranges were taken from the National Kidney Disease Education Program and the [facility] [employer] literature.Reference ranges:60 or greater: Ataoyt03-68 ( for 3 consecutive months): Chronic kidney disease 15 or less: Kidney failureHCA [facility] Healthcare Medical CenterGlucose civgxelzpbg0008-24-19 18:52:00* Test Item Value Reference Range Interpretation Comments Glucose Level (test code = JRS2120) 528 74-070 Results repeated and called to CHAYO MATOS at 1921 on 09/18/19 by Karlie Banuelos. Read ba ck and verified.[facility]er[facility] or plasma calcium measurement (mass/volume)2019-09-18 18:52:00* Test Item Value Reference Range Interpretation Comments Calcium Level (test code = 27071-2) 9.0 8.4-10.2 [facility] Hospitalerum or plasma total bilirubin measurement (mass/volume)2019-09-18 18:52:00* Test Item Value Reference Range Interpretation Comments Total Bilirubin (test code = 1975-2) 0.9 0.2-1.2 [facility] CenterFluoroscopic procedure less than one hour fqrrhcpv2960-15-48 18:52:00* Test Item Value Reference Range Interpretation Comments Aspartate Amino Transf (AST/SGOT) (test code = Aspartate Amino Transf (AST/SGOT)) 21 5-34 [facility] Hospitalerum or plasma alanine aminotransferase measurement (enzymatic activity/volume)2019-09-18 18:52:00* Test Item Value Reference Range Interpretation Comments Alanine Aminotransferase (ALT/SGPT) (test code = 1742-6) 25 0-55 [facility] Hospitalerum or plasma protein measurement (mass/volume)2019-09-18 18:52:00* Test Item Value Reference Range Interpretation Comments Total Protein (test code = 2885-2) 8.4 6.5-8.1 [facility] albumin measurement (mass/volume)2019-09-18 18:52:00* Test Item Value Reference Range Interpretation Comments Albumin (test code = 1751-7) 3.7 3.5-5.0 [facility] CenterPlasma globulin measurement (mass/volume) 2019-09-18 18:52:00* Test Item Value Reference Range Interpretation Comments Globulin (test code = 03295-5) 4.7 2.3-3.5 [facility] or plasma albumin/globulin mass vpjhc5008-29-39 18:52:00* Test Item Value Reference Range Interpretation Comments Albumin/Globulin Ratio (test code = 1759-0) 0.8 0.8-2.0 [facility] or plasma alkaline phosphatase measurement (enzymatic activity/volume)2019-09-18 18:52:00* Test Item Value Reference Range Interpretation Comments Alkaline Phosphatase (test code = 6768-6) 83 40-150 [facility] CenterURINALYSIS SWFDHEOG7195-16-03 20:53:00* Test Item Value Reference Range Interpretation [...] NONE A Urine Source? Clean CatchCBC W/AUTO [id number] 19:41:00* Test Item Value Reference Range Interpretation [...] (test code = MDIFF) NO BASIC METABOLIC PPRNA3120-75-05 19:31:00* Test Item Value Reference Range Interpretation [...] CA) 9.5 mg/dL 8.5-10.1 N HEPATIC FUNCTION [id number] 19:31:00* Test Item Value Reference Range Interpretation [...] reference range due to change in reagent. [id number]-T0137-42-12 19:31:00* Test Item Value Reference Range Interpretation Comments TROPONIN-I (test code = TROPI) <0.015 ng/mL 0-0.045 N BASIC METABOLIC EDKPD5560-04-84 19:22:00* Test Item Value Reference Range Interpretation [...] code = CA) mg/dL 8.5-10.1 HEPATIC FUNCTION DQSYB9279-24-10 19:22:00* Test Item Value Reference Range Interpretation [...] TOTAL (test code = ALKP) IUnit/L 45-117 HCHCFDQC-C1495-47-12 19:22:00* Test Item Value Reference Range Interpretation Comments TROPONIN-I (test code = TROPI) ng/mL 0-0.045 CBC W/AUTO OHNO7185-56-01 19:13:00* Test Item Value Reference Range Interpretation [...] BA#) K/mm3 0.0-0.2 - XR CHEST 1 [id number] 18:57:00 FAX: Sheridan Elizabeth MD [phone] [place]: St: REG FAX: Nic Solomon DO Name: SHAHRIAR LEAL [facility] : 1940 Age/S: 78/M [address] [facility] Unit #: [id number] Loc: [place] [address] Phys: Nic Solomon DO Acct: [id number] Dis Date: Status: REG ER PHONE #: [phone] Exam Date: 08/10/2019 1818 FAX #: [phone] Reason: Altered Mental Status EXAMS: CPT CODE: [id number] XR CHEST 1 V 57990 REASON FOR EXAM: Altered Mental Status EXAM ORDER DATE: 08/10/2019 5:36 PM Ordering: Nic Solomon DO Attending:Nic Solomon DO Location:[facility] PROCEDURE: - XR CHEST 1 V COMPARISON: [...] (1899) PAGE 1 Signed Report Creatine Kinase [id number] 17:13:00* Test Item Value Reference Range Interpretation Comments Creatine Kinase MB (test code = 33071-9) 0.70 0-5.0 [facility] CenterTroponin R9688-08-80 17:13:00* Test Item Value Reference Range Interpretation Comments Troponin I (test code = WRE6418) 0.007 0-0.300 [facility] Hospitalodium Zuwed4780-78-04 17:10:00* Test Item Value Reference Range Interpretation Comments Sodium Level (test code = 2951-2) 140 136-145 [facility] CenterPotassium Xqgfh8748-61-88 17:10:00* Test Item Value Reference Range Interpretation Comments Potassium Level (test code = 2823-3) 3.8 3.5-5.1 [facility] CenterChloride Nykqa4958-49-36 17:10:00* Test Item Value Reference Range Interpretation Comments Chloride Level (test code = 2075-0) 102 98-107 [facility] CenterCarbon Dioxide Zcgml1295-83-11 17:10:00* Test Item Value Reference Range Interpretation Comments Carbon Dioxide Level (test code = 2028-9) 28 22-29 [facility] CenterAnion Ogj6020-61-62 17:10:00* Test Item Value Reference Range Interpretation Comments Anion Gap (test code = 99921-4) 13.8 8-16 [facility] CenterBlood Urea Ipihoxdb8364-52-18 17:10:00* Test Item Value Reference Range Interpretation Comments Blood Urea Nitrogen (test code = 3094-0) 15 7-26 [facility] CenterCreatinine2019-10-01 17:10:00* Test Item Value Reference Range Interpretation Comments Creatinine (test code = 2160-0) 1.52 0.72-1.25 H [facility] CenterBUN/Creatinine Cxkca4707-12-97 17:10:00* Test Item Value Reference Range Interpretation Comments BUN/Creatinine Ratio (test code = 3097-3) 10 6-25 [facility] CenterEstimat Glomerular Filtration Rate 2018-12-29 17:10:00* Test Item Value Reference Range Interpretation Comments Estimat Glomerular Filtration Rate (test code = 980422108) 45 >60 L Ranges were taken from the National Kidney Disease Education Program and the [facility] Kidney Foundation literature.Reference ranges:60 or greater: Owztdm82-36 ( for 3 consecutive months): Chronic kidney disease 15 or less: Kidney failureHCA Houston Healthcare Medical CenterGlucose Txcod4917-03-13 17:10:00* Test Item Value Reference Range Interpretation Comments Glucose Level (test code = CKC6373) 160 74-118 H [facility] CenterCalcium Rslqk6048-20-89 17:10:00* Test Item Value Reference Range Interpretation Comments Calcium Level (test code = 74742-0) 9.0 8.4-10.2 [facility] CenterTotal Rrciubnbs2665-19-79 17:10:00* Test Item Value Reference Range Interpretation Comments Total Bilirubin (test code = 1975-2) 0.4 0.2-1.2 [facility] CenterAspartate Amino Transf (AST/SGOT) 2018-12-29 17:10:00* Test Item Value Reference Range Interpretation Comments Aspartate Amino Transf (AST/SGOT) (test code = Aspartate Amino Transf (AST/SGOT)) 20 5-34 [facility] CenterAlanine Aminotransferase (ALT/SGPT) 2018-12-29 17:10:00* Test Item Value Reference Range Interpretation Comments Alanine Aminotransferase (ALT/SGPT) (test code = 1742-6) 14 0-55 [facility] CenterTotal Xlnyrfo8958-80-92 17:10:00* Test Item Value Reference Range Interpretation Comments Total Protein (test code = 2885-2) 6.9 6.5-8.1 [facility] CenterAlbumin2019-10-01 17:10:00* Test Item Value Reference Range Interpretation Comments Albumin (test code = 1751-7) 3.6 3.5-5.0 [facility] CenterGlobulin2019-10-01 17:10:00* Test Item Value Reference Range Interpretation Comments Globulin (test code = 08823-7) 3.3 2.3-3.5 [facility] CenterAlbumin/Globulin Kzlfd4538-91-69 17:10:00 * Test Item Value Reference Range Interpretation Comments Albumin/Globulin Ratio (test code = 1759-0) 1.1 0.8-2.0 [facility] CenterAlkaline Syvevydrbbs4977-74-99 17:10:00* Test Item Value Reference Range Interpretation Comments Alkaline Phosphatase (test code = 6768-6) 46 40-150 [facility] CenterCreatine Imjqsf5346-03-39 17:10:00* Test Item Value Reference Range Interpretation Comments Creatine Kinase (test code = 2157-6) 62 30-200 [facility] CenterWhite Blood Twikf9687-62-59 16:51:00* Test Item Value Reference Range Interpretation Comments White Blood Count (test code = 6690-2) 8.50 4.8-10.8 [facility] CenterRed Blood Jhfak4124-43-99 16:51:00* Test Item Value Reference Range Interpretation Comments Red Blood Count (test code = 789-8) 3.79 4.3-5.7 L [facility] CenterHemoglobin2019-10-01 16:51:00* Test Item Value Reference Range Interpretation Comments Hemoglobin (test code = 65924-7) 10.8 14.0-18.0 L [facility] CenterHematocrit2019-10-01 16:51:00* Test Item Value Reference Range Interpretation Comments Hematocrit (test code = 4544-3) 33.3 38.2-49.6 L [facility] CenterMean Corpuscular Vjhabc9523-10-47 16:51:00* Test Item Value Reference Range Interpretation Comments Mean Corpuscular Volume (test code = 787-2) 87.9 81-99 [facility] CenterMean Corpuscular Geupywlofl1619-30-12 16:51:00* Test Item Value Reference Range Interpretation Comments Mean Corpuscular Hemoglobin (test code = 785-6) 28.5 28-32 [facility] CenterMean Corpuscular Hemoglobin Concent 2018-12-29 16:51:00* Test Item Value Reference Range Interpretation Comments Mean Corpuscular Hemoglobin Concent (test code = 786-4) 32.4 31-35 [facility] CenterRed Cell Distribution Glwoo2747-54-67 16:51:00* Test Item Value Reference Range Interpretation Comments Red Cell Distribution Width (test code = 69812-2) 18.0 11.7 -14.4 H [facility] CenterPlatelet Sfqqf7370-87-63 16:51:00* Test Item Value Reference Range Interpretation Comments Platelet Count (test code = 777-3) 140 140-360 [facility] CenterNeutrophils (%) (Auto)2018-12-29 16:51:00 * Test Item Value Reference Range Interpretation Comments Neutrophils (%) (Auto) (test code = 33533-7) 50.3 38.7-80.0 [facility] CenterLymphocytes (%) (Auto)2018-12-29 16:51:00 * Test Item Value Reference Range Interpretation Comments Lymphocytes (%) (Auto) (test code = 736-9) 34.6 18.0-39.1 [facility] CenterMonocytes (%) (Auto)2018-12-29 16:51:00* Test Item Value Reference Range Interpretation Comments Monocytes (%) (Auto) (test code = 5905-5) 12.8 4.4-11.3 H [facility] CenterEosinophils (%) (Auto)2018-12-29 16:51:00 * Test Item Value Reference Range Interpretation Comments Eosinophils (%) (Auto) (test code = 713-8) 0.7 0.0-6.0 [facility] CenterBasophils (%) (Auto)2018-12-29 16:51:00* Test Item Value Reference Range Interpretation Comments Basophils (%) (Auto) (test code = 706-2) 0.4 0.0-1.0 [facility] CenterIM GRANULOCYTES %2018-12-29 16:51:00* Test Item Value Reference Range Interpretation Comments IM GRANULOCYTES % (test code = IM GRANULOCYTES %) 1.2 0.0- 1.0 H [facility] CenterNeutrophils # (Auto)2018-12-29 16:51:00* Test Item Value Reference Range Interpretation Comments Neutrophils # (Auto) (test code = 751-8) 4.3 2.1-6.9 [facility] CenterLymphocytes # (Auto)2018-12-29 16:51:00* Test Item Value Reference Range Interpretation Comments Lymphocytes # (Auto) (test code = 25039-8) 2.9 1.0-3.2 [facility] CenterMonocytes # (Auto)2018-12-29 16:51:00* Test Item Value Reference Range Interpretation Comments Monocytes # (Auto) (test code = 742-7) 1.1 0.2-0.8 H [facility] CenterEosinophils # (Auto)2018-12-29 16:51:00* Test Item Value Reference Range Interpretation Comments Eosinophils # (Auto) (test code = 711-2) 0.1 0.0-0.4 [facility] CenterBasophils # (Auto)2018-12-29 16:51:00* Test Item Value Reference Range Interpretation Comments Basophils # (Auto) (test code = 704-7) 0.0 0.0-0.1 [facility] CenterAbsolute Immature Granulocyte (auto 2018-12-29 16:51:00* Test Item Value Reference Range Interpretation Comments Absolute Immature Granulocyte (auto (jordon t code = Absolute Immature Granulocyte (auto) 0.10 0-0.1 [facility] Hospitalerum or plasma creatine kinase measurement (enzymatic activity/volume)2018-12-29 16:34:00* Test Item Value Reference Range Interpretation Comments Creatine Kinase (test code = 2157-6) 62 30-200 [facility] Hospitalerum or plasma creatine kinase MB measurement (mass/volume)2018-12-29 16:34:00* Test Item Value Reference Range Interpretation Comments Creatine Kinase MB (test code = 17377-7) 0.70 0-5.0 [facility] CenterTroponin I measurement by highly sensitive enzyme cnsulncjqal1735-77-45 16:34:00* Test Item Value Reference Range Interpretation Comments Troponin I (test code = 10228-5) 0.007 0-0.300 [facility] CenterCHEST SINGLE (PORTABLE)2018-12-29 16:29:00 [facility] [address] [address] Patient Name: SHAHRIAR LEAL MR #: [id number] : 1940 Age/Sex: 78/M Req #: [id number] Adm Physician: Ordered by: GRACE HERRERA DO Report #: [id number] Location: ER Room/Bed: Procedure: [id number] DX/CH EST SINGLE (PORTABLE) Exam Date: 12/29/18 [...] 1631 COPY TO: GRACE HERRERA DO Bedside Mggogdj5623-14-42 15:18:00* Test Item Value Reference Range Interpretation Comments Bedside Glucose (test code = 35120-3) 220 70-120 H Meter ID: [id number] [facility]udaBedside Glucose 2018-11-07 15:18:00* Test Item Value Reference Range Interpretation Comments Bedside Glucose (test code = 33735-5) 220 70-120 H Meter ID: [id number] [facility] BudaVancomycin Level Bhpjjq1330-75-92 15:02:00* Test Item Value Reference Range Interpretation Comments Vancomycin Level Trough (test code = 4092-3) 9.0 5.0-10.0 [facility] CenterVancomycin Level Ybfpww1296-87-92 15:02:00* Test Item Value Reference Range Interpretation Comments Vancomycin Level Trough (test code = 4092-3) 9.0 5.0-10.0 [facility] Hospitalodium Ghbbd0618-56-72 06:16:00* Test Item Value Reference Range Interpretation Comments Sodium Level (test code = 2951-2) 140 136-145 [facility] CenterPotassium Otmlu7271-75-58 06:16:00* Test Item Value Reference Range Interpretation Comments Potassium Level (test code = 2823-3) 3.2 3.5-5.1 L [facility] CenterChloride Kdgri8143-21-23 06:16:00* Test Item Value Reference Range Interpretation Comments Chloride Level (test code = 2075-0) 100 98-107 [facility] CenterCarbon Dioxide Mjkfb2141-39-44 06:16:00* Test Item Value Reference Range Interpretation Comments Carbon Dioxide Level (test code = 2028-9) 28 22-29 [facility] CenterAnion Cpj1503-01-89 06:16:00* Test Item Value Reference Range Interpretation Comments Anion Gap (test code = 70984-9) 15.2 8-16 [facility] CenterBlood Urea Exddvhty2286-76-89 06:16:00* Test Item Value Reference Range Interpretation Comments Blood Urea Nitrogen (test code = 3094-0) 9 7- [facility] CenterCreatinine2019-08-09 06:16:00* Test Item Value Reference Range Interpretation Comments Creatinine (test code = 2160-0) 1.06 0.72-1.25 [facility] CenterBUN/Creatinine Lsvsj6654-54-49 06:16:00* Test Item Value Reference Range Interpretation Comments BUN/Creatinine Ratio (test code = 3097-3) 8 - [facility] CenterEstimat Glomerular Filtration Rate 2018-11-06 06:16:00* Test Item Value Reference Range Interpretation Comments Estimat Glomerular Filtration Rate (test code = 366405332) > 60 >60 Ranges were taken from the National Kidney Disease Education Program and the [facility] Kidney Foundation literature.Reference ranges:60 or greater: Qncvyj26-54 ( for 3 consecutive months): Chronic kidney disease 15 or less: Kidney failureHCA [facility] Healthcare Medical CenterGlucose Ueguf8784-27-58 06:16:00* Test Item Value Reference Range Interpretation Comments Glucose Level (test code = JUU7873) 185 74-118 H [facility] CenterCalcium Yvjvb4424-27-16 06:16:00* Test Item Value Reference Range Interpretation Comments Calcium Level (test code = 20816-1) 8.7 8.4-10.2 [facility] CenterWhite Blood Nrxmz7160-73-13 06:13:00* Test Item Value Reference Range Interpretation Comments White Blood Count (test code = 6690-2) 6.60 4.8-10.8 [facility] CenterRed Blood Voump6833-47-74 06:13:00* Test Item Value Reference Range Interpretation Comments Red Blood Count (test code = 789-8) 3.53 4.3-5.7 L [facility] CenterHemoglobin2019-08-09 06:13:00* Test Item Value Reference Range Interpretation Comments Hemoglobin (test code = 72182-2) 9.7 14.0-18.0 L [facility] CenterHematocrit2019-08-09 06:13:00* Test Item Value Reference Range Interpretation Comments Hematocrit (test code = 4544-3) 30.3 38.2-49.6 L [facility] CenterMean Corpuscular Npwkzi9788-18-61 06:13:00* Test Item Value Reference Range Interpretation Comments Mean Corpuscular Volume (test code = 787-2) 85.8 81-99 [facility] CenterMean Corpuscular Lunqajidhi0931-01-76 06:13:00* Test Item Value Reference Range Interpretation Comments Mean Corpuscular Hemoglobin (test code = 785-6) 27.5 28-32 L [facility] CenterMean Corpuscular Hemoglobin Concent 2018-11-06 06:13:00* Test Item Value Reference Range Interpretation Comments Mean Corpuscular Hemoglobin Concent (test code = 786-4) 32.0 31-35 [facility] CenterRed Cell Distribution Iiiuv8981-05-90 06:13:00* Test Item Value Reference Range Interpretation Comments Red Cell Distribution Width (test code = 45970-8) 14.9 11.7 -14.4 H [facility] CenterPlatelet Kmuzz4670-70-60 06:13:00* Test Item Value Reference Range Interpretation Comments Platelet Count (test code = 777-3) 186 140-360 [facility] CenterNeutrophils (%) (Auto)2018-11-06 06:13:00 * Test Item Value Reference Range Interpretation Comments Neutrophils (%) (Auto) (test code = 62267-7) 32.4 38.7-80.0 L [facility] CenterLymphocytes (%) (Auto)2018-11-06 06:13:00 * Test Item Value Reference Range Interpretation Comments Lymphocytes (%) (Auto) (test code = 736-9) 48.6 18.0-39.1 H [facility] CenterMonocytes (%) (Auto)2018-11-06 06:13:00* Test Item Value Reference Range Interpretation Comments Monocytes (%) (Auto) (test code = 5905-5) 15.2 4.4-11.3 H [facility] CenterEosinophils (%) (Auto)2018-11-06 06:13:00 * Test Item Value Reference Range Interpretation Comments Eosinophils (%) (Auto) (test code = 713-8) 1.8 0.0-6.0 [facility] CenterBasophils (%) (Auto)2018-11-06 06:13:00* Test Item Value Reference Range Interpretation Comments Basophils (%) (Auto) (test code = 706-2) 0.5 0.0-1.0 [facility] CenterIM GRANULOCYTES %2018-11-06 06:13:00* Test Item Value Reference Range Interpretation Comments IM GRANULOCYTES % (test code = IM GRANULOCYTES %) 1.5 0.0- 1.0 H [facility] CenterNeutrophils # (Auto)2018-11-06 06:13:00* Test Item Value Reference Range Interpretation Comments Neutrophils # (Auto) (test code = 751-8) 2.1 2.1-6.9 [facility] CenterLymphocytes # (Auto)2018-11-06 06:13:00* Test Item Value Reference Range Interpretation Comments Lymphocytes # (Auto) (test code = 17583-5) 3.2 1.0-3.2 [facility] CenterMonocytes # (Auto)2018-11-06 06:13:00* Test Item Value Reference Range Interpretation Comments Monocytes # (Auto) (test code = 742-7) 1.0 0.2-0.8 H [facility] CenterEosinophils # (Auto)2018-11-06 06:13:00* Test Item Value Reference Range Interpretation Comments Eosinophils # (Auto) (test code = 711-2) 0.1 0.0-0.4 [facility] CenterBasophils # (Auto)2018-11-06 06:13:00* Test Item Value Reference Range Interpretation Comments Basophils # (Auto) (test code = 704-7) 0.0 0.0-0.1 [facility] CenterAbsolute Immature Granulocyte (auto 2018-11-06 06:13:00* Test Item Value Reference Range Interpretation Comments Absolute Immature Granulocyte (auto (jordon t code = Absolute Immature Granulocyte (auto) 0.10 0-0.1 [facility]2019-08-04 14:58:00* Test Item Value Reference Range Interpretation Comments Blood Culture (test code = 06824961) NO GROWTH AFTER 5 DAYS, FINAL REPORT [facility]2019-08-04 14:58:00* Test Item Value Reference Range Interpretation Comments Blood Culture (test code = 21961684) NO GROWTH AFTER 5 DAYS, FINAL REPORT [facility] Lfjbmci6604-22-02 08:57:00* Test Item Value Reference Range Interpretation Comments Wound Culture (test code = 6462-6) Organism: STAPHYLOCOCCUS AUREUS- MRSA [facility]2019-08-04 08:57:00* Test Item Value Reference Range Interpretation Comments Wound Culture (test code = 6462-6) Organism: STAPHYLOCOCCUS AUREUS- MRSA [facility]2019-08-04 07:16:00* Test Item Value Reference Range Interpretation Comments Urine Culture (test code = 630-4) Organism: STAPHYLOCOCCUS AUREUS-M [facility] Twnadhw0783-49-71 07:16:00* Test Item Value Reference Range Interpretation Comments Urine Culture (test code = 630-4) Organism: STAPHYLOCOCCUS AUREUS-M [facility] Kzxjwbt5849-79-69 08:27:00* Test Item Value Reference Range Interpretation Comments Wound Culture (test code = 6462-6) Organism: STAPHYLOCOCCUS AUREUS- MRSA [facility] Pfvohyi4350-47-44 08:27:00* Test Item Value Reference Range Interpretation Comments Wound Culture (test code = 6462-6) Organism: STAPHYLOCOCCUS AUREUS- MRSA [facility] CenterBONE SCAN, 3 JDRZC4414-39-99 19:09:00 [address] [place] [address] Patient Name: SHAHRIAR LEAL MR #: [id number] : 1940 Age/Sex: 78/M Req #: [id number] Adm Physician: SHERIDAN MAHONEY MD Ordered by: SAMIR SIMMS DPM Report #: [id number] Location: MED/SURG3 Room/Bed: [facility] Procedure: [id number] NM/BONE SCAN, 3 PHASE Exam Date: 10/29/18 [...] 10/29/2018 7:30 PM Dictated By: MUKUL [facility] Signed By: MUKUL MCKEON MD on 10/29/181929 Transcribed By: TIANA on 1929 COPY TO: SAMIR SIMMS LAVERNEloy CT FOOT LEFT L0212-50-59 12:55:00 [address] [place] [address] Patient Name: SHAHRIAR LEAL MR #: [id number] : 1940 Age/Sex: 78/M Req #: [id number] Adm Physician: SHERIDAN MAHONEY MD Ordered by: VALERIO BHAGAT Report #: [id number] Location: MED/SURG3 Room/Bed: [facility] Procedure: [id number] CT/CT FOOT LEFT W Exam Date: 10/29/18 [...] Dictated By: COL JEFRY HAYWOOD MD, MD 1306 Transcribed By: TIANA on 10/29/18 1308 COPY TO: VALERIO BHAGAT CT FOOT RIGHT Z1126-50-36 12:55:00 [address] [place] [address] Patient Name: SHAHRIAR LEAL MR #: [id number] : 1940 Age/Sex: 78/M Req #: [id number] Adm Physician: SHERIDAN MAHONEY MD Ordered by: VALERIO BHAGAT Report #: [id number] Location: MED/SURG3 Room/Bed: 292-1 Procedure: [id number] CT/CT FOOT RIGHT W Exam Date: 10/29/18 [...] 1309 COPY TO: VALERIO BHAGAT PA Urine UJW8059-41-35 16:16:00* Test Item Value Reference Range Interpretation Comments Urine WBC (test code = 5821-4) >50 0-5 H [facility] CenterUrine DYC7932-49-64 16:16:00* Test Item Value Reference Range Interpretation Comments Urine RBC (test code = 35894-8) 6-10 0-5 H [facility] CenterUrine Rfueubvp4377-30-72 16:16:00* Test Item Value Reference Range Interpretation Comments Urine Bacteria (test code = 59895-5) FEW NONE [facility] CenterUrine Epithelial Ygpcp4542-33-62 16:16:00 * Test Item Value Reference Range Interpretation Comments Urine Epithelial Cells (test code = 25912-4) NONE NONE [facility] CenterUrine VFE8870-50-97 16:16:00* Test Item Value Reference Range Interpretation Comments Urine WBC (test code = 5821-4) >50 0-5 H [facility] CenterUrine KZR1692-06-58 16:16:00* Test Item Value Reference Range Interpretation Comments Urine RBC (test code = 30472-7) 6-10 0-5 H [facility] CenterUrine Gtjrjekv5932-32-86 16:16:00* Test Item Value Reference Range Interpretation Comments Urine Bacteria (test code = 74843-1) FEW NONE [facility] CenterUrine Epithelial Hpwxs5956-71-86 16:16:00 * Test Item Value Reference Range Interpretation Comments Urine Epithelial Cells (test code = 60101-9) NONE NONE [facility] CenterUrine Hllnw0474-37-73 16:05:00* Test Item Value Reference Range Interpretation Comments Urine Color (test code = 5778-6) YELLOW YELLOW [facility] CenterUrine Bfsphse8995-24-37 16:05:00* Test Item Value Reference Range Interpretation Comments Urine Clarity (test code = 92654-9) CLOUDY CLEAR H [facility] CenterUrine Specific Ncpdtzx0675-04-60 16:05:00 * Test Item Value Reference Range Interpretation Comments Urine Specific [place] (test code = 5811-5) 1.025 1.010-1.02 5 [facility] Center[facility] tI8052-02-23 16:05:00* Test Item Value Reference Range Interpretation Comments Urine pH (test code = 57885-6) 6 5-7 [facility] CenterU[facility] Leukocyte Cxdsgaxj9073-05-42 16:05:00* Test Item Value Reference Range Interpretation Comments Urine Leukocyte Esterase (test code = 89382-2) LARGE NEGATIV E [facility] CenterUrine Vufnjsc4366-21-24 16:05:00* Test Item Value Reference Range Interpretation Comments Urine Nitrite (test code = 75314-7) NEGATIVE NEGATIVE [facility] CenterUrine Ualkedu2732-07-33 16:05:00* Test Item Value Reference Range Interpretation Comments Urine Protein (test code = 99704-7) 1+ NEGATIVE H [facility] CenterUrine Glucose (UA)2018-10-28 16:05:00* Test Item Value Reference Range Interpretation Comments Urine Glucose (UA) (test code = 42721-1) NEGATIVE NEGATIVE [facility] CenterUrine Greovxa7760-46-57 16:05:00* Test Item Value Reference Range Interpretation Comments Urine Ketones (test code = 57097-8) NEGATIVE NEGATIVE [facility] CenterUrine Cvlrxpcptlyb4036-73-68 16:05:00* Test Item Value Reference Range Interpretation Comments Urine Urobilinogen (test code = 67616-6) 0.2 0.2-1 [facility] CenterUrine Civgtjjlu9227-29-74 16:05:00* Test Item Value Reference Range Interpretation Comments Urine Bilirubin (test code = 1977-8) NEGATIVE NEGATIVE [facility] Lraqr7376-13-61 16:05:00* Test Item Value Reference Range Interpretation Comments Urine Blood (test code = 89432-5) 1+ NEGATIVE [facility] CenterU[facility] Pdxss2276-65-67 16:05:00* Test Item Value Reference Range Interpretation Comments Urine Color (test code = 5778-6) YELLOW YELLOW [facility] CenterU[facility] Eajxari7233-77-06 16:05:00* Test Item Value Reference Range Interpretation Comments Urine Clarity (test code = 18255-6) CLOUDY CLEAR H [facility] CenterUrine Specific Rujgvby5794-24-79 16:05:00 * Test Item Value Reference Range Interpretation Comments Urine Specific [place] (test code = 5811-5) 1.025 1.010-1.02 5 [facility] CenterUrine tM6781-62-42 16:05:00* Test Item Value Reference Range Interpretation Comments Urine pH (test code = 54297-3) 6 5-7 [facility] CenterU[facility] Leukocyte Ptulthxr8706-10-98 16:05:00* Test Item Value Reference Range Interpretation Comments Urine Leukocyte Esterase (test code = 28514-0) LARGE NEGATIV E [facility] CenterUrine Afedmbh6355-44-62 16:05:00* Test Item Value Reference Range Interpretation Comments Urine Nitrite (test code = 56500-4) NEGATIVE NEGATIVE [facility] CenterU[facility] Ipqjljt0037-14-37 16:05:00* Test Item Value Reference Range Interpretation Comments Urine Protein (test code = 49112-0) 1+ NEGATIVE H [facility] CenterUrine Glucose (UA)2018-10-28 16:05:00* Test Item Value Reference Range Interpretation Comments Urine Glucose (UA) (test code = 45160-8) NEGATIVE NEGATIVE [facility] CenterUrine Dktxcnu7543-25-82 16:05:00* Test Item Value Reference Range Interpretation Comments Urine Ketones (test code = 61182-6) NEGATIVE NEGATIVE [facility] CenterUrine Mgmfftfxdgbb2046-13-16 16:05:00* Test Item Value Reference Range Interpretation Comments Urine Urobilinogen (test code = 96117-6) 0.2 0.2-1 [facility] CenterUrine Xlizcqyap0756-19-91 16:05:00* Test Item Value Reference Range Interpretation Comments Urine Bilirubin (test code = 1977-8) NEGATIVE NEGATIVE [facility] CenterUrine Bgaqi7729-46-59 16:05:00* Test Item Value Reference Range Interpretation Comments Urine Blood (test code = 74252-8) 1+ NEGATIVE [facility] CenterPhosphorus Udlis6130-40-48 07:07:00* Test Item Value Reference Range Interpretation Comments Phosphorus Level (test code = GDR0043) 2.6 2.3-4.7 [facility] CenterMagnesium Uwlhq7278-26-88 07:07:00* Test Item Value Reference Range Interpretation Comments Magnesium Level (test code = 90929-1) 1.3 1.3-2.1 [facility] CenterTotal Ucdrytncx3518-60-95 07:07:00* Test Item Value Reference Range Interpretation Comments Total Bilirubin (test code = 1975-2) 0.4 0.2-1.2 [facility] CenterAspartate Amino Transf (AST/SGOT) 2018-10-28 07:07:00* Test Item Value Reference Range Interpretation Comments Aspartate Amino Transf (AST/SGOT) (test code = Aspartate Amino Transf (AST/SGOT)) 12 5-34 [facility] CenterAlanine Aminotransferase (ALT/SGPT) 2018-10-28 07:07:00* Test Item Value Reference Range Interpretation Comments Alanine Aminotransferase (ALT/SGPT) (test code = 1742-6) 14 0-55 [facility] CenterTotal Ajjxdue5040-86-03 07:07:00* Test Item Value Reference Range Interpretation Comments Total Protein (test code = 2885-2) 6.5 6.5-8.1 [facility] CenterAlbumin2019-07-31 07:07:00* Test Item Value Reference Range Interpretation Comments Albumin (test code = 1751-7) 2.8 3.5-5.0 L [facility] CenterGlobulin2019-07-31 07:07:00* Test Item Value Reference Range Interpretation Comments Globulin (test code = 20601-6) 3.7 2.3-3.5 H [facility] CenterAlbumin/Globulin Ooykj6392-97-16 07:07:00 * Test Item Value Reference Range Interpretation Comments Albumin/Globulin Ratio (test code = 1759-0) 0.8 0.8-2.0 [facility] CenterAlkaline Cqzbhqblgpm5194-23-30 07:07:00* Test Item Value Reference Range Interpretation Comments Alkaline Phosphatase (test code = 6768-6) 57 40-150 [facility] CenterPhosphorus Ihgkc8281-67-34 07:07:00* Test Item Value Reference Range Interpretation Comments Phosphorus Level (test code = ERO4703) 2.6 2.3-4.7 [facility] CenterMagnesium Ckrqn7548-48-60 07:07:00* Test Item Value Reference Range Interpretation Comments Magnesium Level (test code = 13367-6) 1.3 1.3-2.1 [facility] CenterLactic Acid Tlzzz7424-09-70 19:42:00* Test Item Value Reference Range Interpretation Comments Lactic Acid Level (test code = Lactic Acid Level) 19.8 4.5- 19.8 [facility] CenterLactic Acid Xhvrt7321-05-80 19:42:00* Test Item Value Reference Range Interpretation Comments Lactic Acid Level (test code = Lactic Acid Level) 19.8 4.5- 19.8 [facility] CenterCHEST SINGLE (PORTABLE)2018-10-27 15:54:00 [facility] [place] [id number] Patient Name: SHAHRIAR LEAL MR #: [id number] : 1940 Age/Sex: 78/M Req #: [id number] Adm Physician: SHERIDAN MAHONEY MD Ordered by: [employer] Report #: [id number] Location: [facility] Room/Bed: [place] [address] Procedure: [id number] DX/CHEST SINGLE (PORTABLE) Exam Date: 10/27/18 Exam [...] TIANA on 10/27/181555 COPY TO: [employer] FOOT RIGHT OFCEJNZJ0286-04-78 15:51:00 [place] [id number] Patient Name: SHAHRIAR LEAL MR #: [id number] : 1940 Age/Sex: 78/M Req #: [id number] Adm Physician: SHERIDAN MAHONEY MD Ordered by: GRACE [employer] Report #: [id number] Location: [facility] Room/Bed: [place] [address] Procedure: [id number] DX/FOOT RIGHT COMPLETE Exam Date: 10/27/18 Exam [...] 3:54 PM Dictated By: LULU DOMINGUEZ MD [id number] Transcribed By: TIANA on 10/27/18 0723 COPY TO: [employer] Erythrocyte Sedimentation Lwdd6610-82-16 15:48:00* Test Item Value Reference Range Interpretation Comments Erythrocyte Sedimentation Rate (test code = 4537-7) 67 0- 13 H [facility] CenterErythrocyte Sedimentation Iwmh9334-28-76 15:48:00* Test Item Value Reference Range Interpretation Comments Erythrocyte Sedimentation Rate (test code = 4537-7) 67 0- 13 H [facility] CenterB-Type Natriuretic Hnwxzgd7938-03-05 15:36:00* Test Item Value Reference Range Interpretation Comments B-Type Natriuretic Peptide (test code = 82115-5) 61.2 0-100 [facility] CenterCreatine Kinase UZ9452-02-49 15:36:00* Test Item Value Reference Range Interpretation Comments Creatine Kinase MB (test code = 61916-1) 0.90 0-5.0 [facility] CenterTroponin B4709-12-74 15:36:00* Test Item Value Reference Range Interpretation Comments Troponin I (test code = YFR6870) 0.009 0-0.300 [facility] CenterB-Type Natriuretic Jsdoron2017-70-42 15:36:00* Test Item Value Reference Range Interpretation Comments B-Type Natriuretic Peptide (test code = 72192-1) 61.2 0-100 [facility] CenterCreatine Wuzzdl6491-45-49 15:27:00* Test Item Value Reference Range Interpretation Comments Creatine Kinase (test code = 2157-6) 25 30-200 L [facility] CenterProthrombin Sphp9178-62-40 15:19:00* Test Item Value Reference Range Interpretation Comments Prothrombin Time (test code = 5902-2) 12.6 11.9-14.5 [facility] CenterProthromb Time International Ratio 2018-10-27 15:19:00* Test Item Value Reference Range Interpretation Comments Prothromb Time International Ratio (test code = 6301-6) 0.90 Oral Anticoagulant Therapy INR Values:1. Low Intensity Therapy 1.5 - 2.02 . Moderate Intensity Therapy 2.0 - 3.03. High Intensity Therapy(1) 2.5 - 3. 54. High Intensity Therapy(2) 3.0 - 4.05. Panic Value INR > 5.0 [facility] CenterActivated Partial Thromboplast Time 2018-10-27 15:19:00* Test Item Value Reference Range Interpretation Comments Activated Partial Thromboplast Time (test code = 14360-6) 30.9 23.8-35.5 [facility] CenterProthrombin Eqmb2601-72-59 15:19:00* Test Item Value Reference Range Interpretation Comments Prothrombin Time (test code = 5902-2) 12.6 11.9-14.5 [facility] CenterProthromb Time International Ratio 2018-10-27 15:19:00* Test Item Value Reference Range Interpretation Comments Prothromb Time International Ratio (test code = 6301-6) 0.90 Oral Anticoagulant Therapy INR Values:1. Low Intensity Therapy 1.5 - 2.02 . Moderate Intensity Therapy 2.0 - 3.03. High Intensity Therapy(1) 2.5 - 3. 54. High Intensity Therapy(2) 3.0 - 4.05. Panic Value INR > 5.0 [facility] CenterActivated Partial Thromboplast Time 2018-10-27 15:19:00* Test Item Value Reference Range Interpretation Comments Activated Partial Thromboplast Time (test code = 84201-5) 30.9 23.8-35.5 [facility] CenterURINALYSIS NLNRTFRQ4163-58-22 20:17:00* Test Item Value Reference Range Interpretation [...] FEW #/LPF FEW Urine Source? Clean CatchURINALYSIS MSULFVMW2471-18-20 19:10:00* Test Item Value Reference Range Interpretation [...] #/LPF FEW Urine Source? Clean CatchBASIC METABOLIC DUGSS3819-74-63 17:43:00* Test Item Value Reference Range Interpretation [...] CA) 8.9 mg/dL 8.5-10.1 N HEPATIC FUNCTION FQCEK9872-46-99 17:43:00* Test Item Value Reference Range Interpretation [...] reference range due to change in reagent. BHVQZH9111-64-51 17:43:00* Test Item Value Reference Range Interpretation Comments LIPASE (test code = LIP) 140 U/L 73.0-393.0 N RXHTGSMK-G3993-77-09 17:43:00* Test Item Value Reference Range Interpretation Comments TROPONIN-I (test code = TROPI) <0.015 ng/mL 0-0.045 N BASIC METABOLIC OHGHF1288-74-00 17:43:00* Test Item Value Reference Range Interpretation [...] CA) 8.9 mg/dL 8.5-10.1 N HEPATIC FUNCTION HLYQP8243-70-86 17:43:00* Test Item Value Reference Range Interpretation [...] reference range due to change in reagent. YJGZNF6401-50-25 17:43:00* Test Item Value Reference Range Interpretation Comments LIPASE (test code = LIP) 140 U/L 73.0-393.0 N ANPHWMRG-W5098-87-09 17:43:00* Test Item Value Reference Range Interpretation Comments TROPONIN-I (test code = TROPI) <0.015 ng/mL 0-0.045 N CREATINE KINASE (CK)2018-10-06 17:40:00* Test Item Value Reference Range Interpretation Comments CREATINE KINASE (CK) (test code = CK) 57 IUnit/L 26-208 N KRKGFVUKF5207-22-60 17:40:00* Test Item Value Reference Range Interpretation Comments MAGNESIUM (test code = MAG) 1.6 mg/dL 1.8-2.4 L CREATINE KINASE (CK)2018-10-06 17:34:00* Test Item Value Reference Range Interpretation Comments CREATINE KINASE (CK) (test code = CK) IUnit/L 26-208 DOQABCOKN2533-74-17 17:34:00* Test Item Value Reference Range Interpretation Comments MAGNESIUM (test code = MAG) 1.6 mg/dL 1.8-2.4 L BASIC METABOLIC CECGU7904-30-75 17:31:00* Test Item Value Reference Range Interpretation [...] code = CA) mg/dL 8.5-10.1 HEPATIC FUNCTION ZLMBH3306-52-21 17:31:00* Test Item Value Reference Range Interpretation [...] TOTAL (test code = ALKP) IUnit/L 45-117 SKUKGF2297-88-49 17:31:00* Test Item Value Reference Range Interpretation Comments LIPASE (test code = LIP) U/L 73.0-393.0 OCRCLRMT-H0527-25-09 17:31:00* Test Item Value Reference Range Interpretation Comments TROPONIN-I (test code = TROPI) ng/mL 0-0.045 CBC W/O KKPH8458-96-88 17:12:00* Test Item Value Reference Range Interpretation [...] MPV) 10.8 fL 6.7-11.0 N CBC W/O RYGA7171-34-18 17:12:00* Test Item Value Reference Range Interpretation [...] = MPV) 10.8 fL 6.7-11.0 N Magnesium Ipvtm6103-42-11 19:14:00* Test Item Value Reference Range Interpretation Comments Magnesium Level (test code = 13134-9) 1.0 1.3-2.1 LL Results repeated and called to TATYANA VARGAS at 1911 on 09/08/18 by ARCADIO BAILEY. Read back and verified.[facility] 2018-[facility] 18:37:00* Test Item Value Reference Range Interpretation Comments Sodium Level (test code = 2951-2) 132 136-145 L [facility] CenterPotassium Awwfd2714-93-32 18:37:00* Test Item Value Reference Range Interpretation Comments Potassium Level (test code = 2823-3) 3.0 3.5-5.1 L [facility] CenterChloride Mfdil5238-49-02 18:37:00* Test Item Value Reference Range Interpretation Comments Chloride Level (test code = 2075-0) 97 98-107 L [facility] CenterCarbon Dioxide Fugrl4702-45-13 18:37:00* Test Item Value Reference Range Interpretation Comments Carbon Dioxide Level (test code = 2028-9) 24 22-29 [facility] CenterAnion Uzm6463-31-88 18:37:00* Test Item Value Reference Range Interpretation Comments Anion Gap (test code = 90143-2) 14.0 8-16 [facility] CenterBlood Urea Hsxdztve4467-34-83 18:37:00* Test Item Value Reference Range Interpretation Comments Blood Urea Nitrogen (test code = 3094-0) 9 7-26 [facility] CenterCreatinine2019-06-11 18:37:00* Test Item Value Reference Range Interpretation Comments Creatinine (test code = 2160-0) 1.01 0.72-1.25 [facility] CenterBUN/Creatinine Fiorc3200-52-43 18:37:00* Test Item Value Reference Range Interpretation Comments BUN/Creatinine Ratio (test code = 3097-3) 9 6-25 [facility] CenterEstimat Glomerular Filtration Rate 2018-09-08 18:37:00* Test Item Value Reference Range Interpretation Comments Estimat Glomerular Filtration Rate (test code = 387241095) > 60 >60 Ranges were taken from the National Kidney Disease Education Program and the [facility] literature.Reference ranges:60 or greater: Uppefi87-24 ( for 3 consecutive months): Chronic kidney disease 15 or less: Kidney failureCHI Baylor Scott [facility] – BudaGlucose Vhvzv4054-68-15 18:37:00* Test Item Value Reference Range Interpretation Comments Glucose Level (test code = VTZ3793) 236 74-118 H [facility] CenterCalcium Rotjo0387-15-04 18:37:00* Test Item Value Reference Range Interpretation Comments Calcium Level (test code = 35921-9) 8.3 8.4-10.2 L [facility] CenterTotal Arjcemdbn5581-34-72 18:37:00* Test Item Value Reference Range Interpretation Comments Total Bilirubin (test code = 1975-2) 0.7 0.2-1.2 [facility] CenterAspartate Amino Transf (AST/SGOT) 2018-09-08 18:37:00* Test Item Value Reference Range Interpretation Comments Aspartate Amino Transf (AST/SGOT) (test code = Aspartate Amino Transf (AST/SGOT)) 17 5-34 [facility] CenterAlanine Aminotransferase (ALT/SGPT) 2018-09-08 18:37:00* Test Item Value Reference Range Interpretation Comments Alanine Aminotransferase (ALT/SGPT) (test code = 1742-6) 18 0-55 [facility] CenterTotal Iitnweh2435-54-30 18:37:00* Test Item Value Reference Range Interpretation Comments Total Protein (test code = 2885-2) 6.5 6.5-8.1 [facility] CenterAlbumin2019-06-11 18:37:00* Test Item Value Reference Range Interpretation Comments Albumin (test code = 1751-7) 3.5 3.5-5.0 [facility] CenterGlobulin2019-06-11 18:37:00* Test Item Value Reference Range Interpretation Comments Globulin (test code = 92516-7) 3.0 2.3-3.5 [facility] CenterAlbumin/Globulin Pqxvk0925-38-49 18:37:00 * Test Item Value Reference Range Interpretation Comments Albumin/Globulin Ratio (test code = 1759-0) 1.2 0.8-2.0 [facility] CenterAlkaline Ttlykzbrbbu7112-95-87 18:37:00* Test Item Value Reference Range Interpretation Comments Alkaline Phosphatase (test code = 6768-6) 71 40-150 [facility] CenterAmylase Ylnqm7196-84-24 18:37:00* Test Item Value Reference Range Interpretation Comments Amylase Level (test code = 1798-8) 48 25-125 [facility] CenterLipase2019-06-11 18:37:00* Test Item Value Reference Range Interpretation Comments Lipase (test code = 3040-3) 58 8-78 [facility] CenterAmylase Kcrba2891-94-82 18:37:00* Test Item Value Reference Range Interpretation Comments Amylase Level (test code = 1798-8) 48 25-125 [facility] CenterLipase2019-06-11 18:37:00* Test Item Value Reference Range Interpretation Comments Lipase (test code = 3040-3) 58 8-78 [facility] CenterAmylase Vrnjz8504-71-06 18:37:00* Test Item Value Reference Range Interpretation Comments Amylase Level (test code = 1798-8) 48 25-125 [facility] CenterLipase2019-06-11 18:37:00* Test Item Value Reference Range Interpretation Comments Lipase (test code = 3040-3) 58 8-78 [facility] CenterWhite Blood Iavxk9475-12-29 18:19:00* Test Item Value Reference Range Interpretation Comments White Blood Count (test code = 6690-2) 9.18 4.8-10.8 [facility] CenterRed Blood Annwe1530-89-77 18:19:00* Test Item Value Reference Range Interpretation Comments Red Blood Count (test code = 789-8) 3.52 4.3-5.7 L [facility] CenterHemoglobin2019-06-11 18:19:00* Test Item Value Reference Range Interpretation Comments Hemoglobin (test code = 35177-2) 10.4 14.0-18.0 L [facility] CenterHematocrit2019-06-11 18:19:00* Test Item Value Reference Range Interpretation Comments Hematocrit (test code = 4544-3) 29.6 38.2-49.6 L [facility] CenterMean Corpuscular Kzdawm3044-07-33 18:19:00* Test Item Value Reference Range Interpretation Comments Mean Corpuscular Volume (test code = 787-2) 84.1 81-99 [facility] CenterMean Corpuscular Asixhrmcox3994-77-24 18:19:00* Test Item Value Reference Range Interpretation Comments Mean Corpuscular Hemoglobin (test code = 785-6) 29.5 28-32 [facility] CenterMean Corpuscular Hemoglobin Concent 2018-09-08 18:19:00* Test Item Value Reference Range Interpretation Comments Mean Corpuscular Hemoglobin Concent (test code = 786-4) 35.1 31-35 H [facility] CenterRed Cell Distribution Cctli3315-07-40 18:19:00* Test Item Value Reference Range Interpretation Comments Red Cell Distribution Width (test code = 27859-6) 13.9 11.7 -14.4 [facility] CenterPlatelet Uxeis4192-69-53 18:19:00* Test Item Value Reference Range Interpretation Comments Platelet Count (test code = 777-3) 157 140-360 [facility] CenterNeutrophils (%) (Auto)2018-09-08 18:19:00 * Test Item Value Reference Range Interpretation Comments Neutrophils (%) (Auto) (test code = 99754-3) 63.5 38.7-80.0 [facility] CenterLymphocytes (%) (Auto)2018-09-08 18:19:00 * Test Item Value Reference Range Interpretation Comments Lymphocytes (%) (Auto) (test code = 736-9) 19.2 18.0-39.1 [facility] CenterMonocytes (%) (Auto)2018-09-08 18:19:00* Test Item Value Reference Range Interpretation Comments Monocytes (%) (Auto) (test code = 5905-5) 14.7 4.4-11.3 H [facility] CenterEosinophils (%) (Auto)2018-09-08 18:19:00 * Test Item Value Reference Range Interpretation Comments Eosinophils (%) (Auto) (test code = 713-8) 0.3 0.0-6.0 [facility] CenterBasophils (%) (Auto)2018-09-08 18:19:00* Test Item Value Reference Range Interpretation Comments Basophils (%) (Auto) (test code = 706-2) 0.4 0.0-1.0 [facility] CenterIM GRANULOCYTES %2018-09-08 18:19:00* Test Item Value Reference Range Interpretation Comments IM GRANULOCYTES % (test code = IM GRANULOCYTES %) 1.9 0.0- 1.0 H [facility] CenterNeutrophils # (Auto)2018-09-08 18:19:00* Test Item Value Reference Range Interpretation Comments Neutrophils # (Auto) (test code = 751-8) 5.8 2.1-6.9 [facility] CenterLymphocytes # (Auto)2018-09-08 18:19:00* Test Item Value Reference Range Interpretation Comments Lymphocytes # (Auto) (test code = 94505-2) 1.8 1.0-3.2 [facility] CenterMonocytes # (Auto)2018-09-08 18:19:00* Test Item Value Reference Range Interpretation Comments Monocytes # (Auto) (test code = 742-7) 1.4 0.2-0.8 H [facility] CenterEosinophils # (Auto)2018-09-08 18:19:00* Test Item Value Reference Range Interpretation Comments Eosinophils # (Auto) (test code = 711-2) 0.0 0.0-0.4 [facility] CenterBasophils # (Auto)2018-09-08 18:19:00* Test Item Value Reference Range Interpretation Comments Basophils # (Auto) (test code = 704-7) 0.0 0.0-0.1 [facility] CenterAbsolute Immature Granulocyte (auto 2018-09-08 18:19:00* Test Item Value Reference Range Interpretation Comments Absolute Immature Granulocyte (auto (jordon t code = Absolute Immature Granulocyte (auto) 0.17 0-0.[address] [facility] Okovass4855-74-69 11:53:00* Test Item Value Reference Range Interpretation Comments Bedside Glucose (test code = 89256-0) 194 70-120 H Meter ID: [id number]. [facility] Glucose 2018-09-07 16:31:00* Test Item Value Reference Range Interpretation Comments Bedside Glucose (test code = 33745-9) 200 70-120 H Meter ID: [id number] Pinto General Hospitalodium Level 2018-09-07 05:28:00* Test Item Value Reference Range Interpretation Comments Sodium Level (test code = 2951-2) 139 136-145 [facility] CenterPotassium Mcdna8608-04-96 05:28:00* Test Item Value Reference Range Interpretation Comments Potassium Level (test code = 2823-3) 3.2 3.5-5.1 L [facility] CenterChloride Eyzpo9909-09-78 05:28:00* Test Item Value Reference Range Interpretation Comments Chloride Level (test code = 2075-0) 108 98-107 H [facility] CenterCarbon Dioxide Kxlnd6893-43-97 05:28:00* Test Item Value Reference Range Interpretation Comments Carbon Dioxide Level (test code = 2028-9) 22 22-29 [facility] CenterAnion Qrc7694-11-86 05:28:00* Test Item Value Reference Range Interpretation Comments Anion Gap (test code = 74908-8) 12.2 8-16 [facility] CenterBlood Urea Reuchsqq5010-45-72 05:28:00* Test Item Value Reference Range Interpretation Comments Blood Urea Nitrogen (test code = 3094-0) 12 - [facility] CenterCreatinine2019-06-10 05:28:00* Test Item Value Reference Range Interpretation Comments Creatinine (test code = 2160-0) 0.93 0.72-1.25 [facility] CenterBUN/Creatinine Jydhn8246-17-84 05:28:00* Test Item Value Reference Range Interpretation Comments BUN/Creatinine Ratio (test code = 3097-3) 13 09-22 [facility] CenterEstimat Glomerular Filtration Rate 2018-09-07 05:28:00* Test Item Value Reference Range Interpretation Comments Estimat Glomerular Filtration Rate (test code = 363264617) > 60 >60 Ranges were taken from the National Kidney Disease Education Program and the Amanda americ[facility] healthcare systemsal Kidney Foundation literature.Reference ranges:60 or greater: Xfkitp90-88 ( for 3 consecutive months): Chronic kidney disease 15 or less: Kidney failureHCA [facility] Healthcare Medical CenterGlucose Fchvd6468-36-88 05:28:00* Test Item Value Reference Range Interpretation Comments Glucose Level (test code = JGH5159) 104 74-118 [facility] CenterCalcium Vcjzv5638-93-41 05:28:00* Test Item Value Reference Range Interpretation Comments Calcium Level (test code = 07678-3) 8.0 8.4-10.2 L [facility] CenterWhite Blood Qetdz6867-87-42 05:08:00* Test Item Value Reference Range Interpretation Comments White Blood Count (test code = 6690-2) 8.90 4.8-10.8 [facility] CenterRed Blood Gyfip6343-60-94 05:08:00* Test Item Value Reference Range Interpretation Comments Red Blood Count (test code = 789-8) 3.14 4.3-5.7 L [facility] CenterHemoglobin2019-06-10 05:08:00* Test Item Value Reference Range Interpretation Comments Hemoglobin (test code = 34328-7) 9.3 14.0-18.0 L [facility] CenterHematocrit2019-06-10 05:08:00* Test Item Value Reference Range Interpretation Comments Hematocrit (test code = 4544-3) 27.4 38.2-49.6 L [facility] CenterMean Corpuscular Pfzkfg9141-18-48 05:08:00* Test Item Value Reference Range Interpretation Comments Mean Corpuscular Volume (test code = 787-2) 87.3 81-99 [facility] CenterMean Corpuscular Eckqgvpofc1004-30-46 05:08:00* Test Item Value Reference Range Interpretation Comments Mean Corpuscular Hemoglobin (test code = 785-6) 29.6 28-32 [facility] Hemoglobin Concent 2018-09-07 05:08:00* Test Item Value Reference Range Interpretation Comments Mean Corpuscular Hemoglobin Concent (test code = 786-4) 33.9 31-35 [facility] CenterRed Cell Distribution Mysdp0842-96-65 05:08:00* Test Item Value Reference Range Interpretation Comments Red Cell Distribution Width (test code = 48647-3) 14.3 11.7 -14.4 [facility] CenterPlatelet Ahluy0804-83-50 05:08:00* Test Item Value Reference Range Interpretation Comments Platelet Count (test code = 777-3) 142 140-360 [facility] CenterNeutrophils (%) (Auto)2018-09-07 05:08:00 * Test Item Value Reference Range Interpretation Comments Neutrophils (%) (Auto) (test code = 22430-3) 59.3 38.7-80.0 [facility] CenterLymphocytes (%) (Auto)2018-09-07 05:08:00 * Test Item Value Reference Range Interpretation Comments Lymphocytes (%) (Auto) (test code = 736-9) 22.6 18.0-39.1 [facility] CenterMonocytes (%) (Auto)2018-09-07 05:08:00* Test Item Value Reference Range Interpretation Comments Monocytes (%) (Auto) (test code = 5905-5) 15.3 4.4-11.3 H [facility] CenterEosinophils (%) (Auto)2018-09-07 05:08:00 * Test Item Value Reference Range Interpretation Comments Eosinophils (%) (Auto) (test code = 713-8) 0.8 0.0-6.0 [facility] CenterBasophils (%) (Auto)2018-09-07 05:08:00* Test Item Value Reference Range Interpretation Comments Basophils (%) (Auto) (test code = 706-2) 0.4 0.0-1.0 [facility] CenterIM GRANULOCYTES %2018-09-07 05:08:00* Test Item Value Reference Range Interpretation Comments IM GRANULOCYTES % (test code = IM GRANULOCYTES %) 1.6 0.0- 1.0 H [facility] CenterNeutrophils # (Auto)2018-09-07 05:08:00* Test Item Value Reference Range Interpretation Comments Neutrophils # (Auto) (test code = 751-8) 5.3 2.1-6.9 [facility] CenterLymphocytes # (Auto)2018-09-07 05:08:00* Test Item Value Reference Range Interpretation Comments Lymphocytes # (Auto) (test code = 33054-9) 2.0 1.0-3.2 [facility] CenterMonocytes # (Auto)2018-09-07 05:08:00* Test Item Value Reference Range Interpretation Comments Monocytes # (Auto) (test code = 742-7) 1.4 0.2-0.8 H [facility] CenterEosinophils # (Auto)2018-09-07 05:08:00* Test Item Value Reference Range Interpretation Comments Eosinophils # (Auto) (test code = 711-2) 0.1 0.0-0.4 [facility] CenterBasophils # (Auto)2018-09-07 05:08:00* Test Item Value Reference Range Interpretation Comments Basophils # (Auto) (test code = 704-7) 0.0 0.0-0.1 [facility] CenterAbsolute Immature Granulocyte (auto 2018-09-07 05:08:00* Test Item Value Reference Range Interpretation Comments Absolute Immature Granulocyte (auto (jordon t code = Absolute Immature Granulocyte (auto) 0.14 0-0.1 H [facility] CenterClostridium Difficile Toxin A & B 2018-09-05 11:28:00* Test Item Value Reference Range Interpretation Comments Clostridium Difficile Toxin A & B (test code = 741094010) NEGATIVE NEGATIVE Testing on stool aspirate specimens is outside 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 since specime n type not validated on this assay.[facility] Clostridium Difficile Toxin A & J2653-36-43 11:28:00* Test Item Value Reference Range Interpretation Comments Clostridium Difficile Toxin A & B (test code = 518641815) NEGATIVE NEGATIVE Testing on stool aspirate specimens is outside 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 since specime n type not validated on this assay.[facility] Clostridium Difficile Toxin A & H6445-50-05 11:28:00* Test Item Value Reference Range Interpretation Comments Clostridium Difficile Toxin A & B (test code = 676455498) NEGATIVE NEGATIVE Testing on stool aspirate specimens is outside 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 since specime n type not validated on this assay.[facility] Clostridium Difficile Toxin A & J3320-18-05 11:28:00* Test Item Value Reference Range Interpretation Comments Clostridium Difficile Toxin A & B (test code = 027143169) NEGATIVE NEGATIVE Testing on stool aspirate specimens is outside 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 since specime n type not validated on this assay.[facility] CenterTotal Wuhjfybbo4017-47-81 05:23:00* Test Item Value Reference Range Interpretation Comments Total Bilirubin (test code = 1975-2) 0.5 0.2-1.2 [facility] CenterAspartate Amino Transf (AST/SGOT) 2018-09-05 05:23:00* Test Item Value Reference Range Interpretation Comments Aspartate Amino Transf (AST/SGOT) (test code = Aspartate Amino Transf (AST/SGOT)) 14 5-34 [facility] CenterAlanine Aminotransferase (ALT/SGPT) 2018-09-05 05:23:00* Test Item Value Reference Range Interpretation Comments Alanine Aminotransferase (ALT/SGPT) (test code = 1742-6) 14 0-55 [facility] CenterTotal Tnccfdb8422-04-21 05:23:00* Test Item Value Reference Range Interpretation Comments Total Protein (test code = 2885-2) 6.4 6.5-8.1 L [facility] CenterAlbumin2019-06-08 05:23:00* Test Item Value Reference Range Interpretation Comments Albumin (test code = 1751-7) 3.6 3.5-5.0 [facility] CenterGlobulin2019-06-08 05:23:00* Test Item Value Reference Range Interpretation Comments Globulin (test code = 68441-5) 2.8 2.3-3.5 [facility] CenterAlbumin/Globulin Iauog6722-66-00 05:23:00 * Test Item Value Reference Range Interpretation Comments Albumin/Globulin Ratio (test code = 1759-0) 1.3 0.8-2.0 [facility] CenterAlkaline Lsraqmzwewp2590-92-18 05:23:00* Test Item Value Reference Range Interpretation Comments Alkaline Phosphatase (test code = 6768-6) 67 40-150 [facility] CenterLactic Acid Ycqxw6079-21-17 01:40:00* Test Item Value Reference Range Interpretation Comments Lactic Acid Level (test code = Lactic Acid Level) 17.3 4.5- 19.8 [facility] CenterLactic Acid Roeqf7533-12-50 01:40:00* Test Item Value Reference Range Interpretation Comments Lactic Acid Level (test code = Lactic Acid Level) 17.3 4.5- 19.8 [facility] CenterCT ABDOMEN/PELVIS M8031-07-86 18:13:00 [place] [address] Patient Name: SHAHRIAR LEAL MR #: [id number] : 1940 Age/Sex: 77/M Req #: [id number] Adm Physician: Ordered by: BRI RENEE MD Report #: [id number] Location: ER Room/Bed: Procedure: [id number] CT /CT ABDOMEN/PELVIS W Exam Date: 09/04/18 [...] 09/04/181816 COPY TO: BRI SIU MD Urine AYX9891-56-34 15:15:00* Test Item Value Reference Range Interpretation Comments Urine WBC (test code = 5821-4) NONE 0-[address] [facility] FEM9785-84-15 15:15:00* Test Item Value Reference Range Interpretation Comments Urine RBC (test code = 50677-3) 0-5 0-[address] [facility] Lyicuvup5690-70-88 15:15:00* Test Item Value Reference Range Interpretation Comments Urine Bacteria (test code = 67047-0) MANY NONE H [facility] Epithelial Ofzjn5104-29-78 15:15:00 * Test Item Value Reference Range Interpretation Comments Urine Epithelial Cells (test code = 04653-4) NONE NONE [facility] Amorphous Izqzdunu5901-12-13 15:15:00* Test Item Value Reference Range Interpretation Comments Urine Amorphous Sediment (test code = 8246-1) MODERATE FEW H [facility] ZYI8182-59-14 15:15:00* Test Item Value Reference Range Interpretation Comments Urine WBC (test code = 5821-4) NONE 0-[address] [facility] TXU7591-48-80 15:15:00* Test Item Value Reference Range Interpretation Comments Urine RBC (test code = 07410-3) 0-5 0-[address] [facility] Bvbmhvnu8527-14-12 15:15:00* Test Item Value Reference Range Interpretation Comments Urine Bacteria (test code = 77400-9) MANY NONE H [facility] CenterUrine Epithelial Nbqqb1872-46-10 15:15:00 * Test Item Value Reference Range Interpretation Comments Urine Epithelial Cells (test code = 27811-8) NONE NONE [facility] Amorphous Okbdubjt1211-99-27 15:15:00* Test Item Value Reference Range Interpretation Comments Urine Amorphous Sediment (test code = 8246-1) MODERATE FEW H [facility] Amorphous Lwvacyos7663-75-72 15:15:00* Test Item Value Reference Range Interpretation Comments Urine Amorphous Sediment (test code = 8246-1) MODERATE FEW H [facility] Amorphous Tcrajbvm1657-48-14 15:15:00* Test Item Value Reference Range Interpretation Comments Urine Amorphous Sediment (test code = 8246-1) MODERATE FEW H [facility] CenterUrine Ouvya6925-35-64 15:01:00* Test Item Value Reference Range Interpretation Comments Urine Color (test code = 5778-6) YELLOW YELLOW [facility] CenterUrine Amzabzv2458-79-52 15:01:00* Test Item Value Reference Range Interpretation Comments Urine Clarity (test code = 99141-5) SL CLOUDY CLEAR H [facility] CenterUrine Specific Olkrcpe3882-24-46 15:01:00 * Test Item Value Reference Range Interpretation Comments Urine Specific [place] (test code = 5811-5) 1.020 1.010-1.02 5 [facility] CenterUrine uW8991-68-09 15:01:00* Test Item Value Reference Range Interpretation Comments Urine pH (test code = 49760-5) 6 5-7 [facility] CenterUrine Leukocyte Jcwzycbd4708-09-05 15:01:00* Test Item Value Reference Range Interpretation Comments Urine Leukocyte Esterase (test code = 56702-6) NEGATIVE NEGATIV E [facility] CenterUrine Csqfwmx1932-99-38 15:01:00* Test Item Value Reference Range Interpretation Comments Urine Nitrite (test code = 77903-2) NEGATIVE NEGATIVE [facility] CenterUrine Kgydcvm8750-74-05 15:01:00* Test Item Value Reference Range Interpretation Comments Urine Protein (test code = 15486-0) 1+ NEGATIVE H [facility] CenterUrine Glucose (UA)2018-09-04 15:01:00* Test Item Value Reference Range Interpretation Comments Urine Glucose (UA) (test code = 61757-0) 3+ NEGATIVE [facility] CenterUrine Kdkpvef1232-92-82 15:01:00* Test Item Value Reference Range Interpretation Comments Urine Ketones (test code = 79147-3) 2+ NEGATIVE H [facility] Ibeklhmsanbx5389-37-13 15:01:00* Test Item Value Reference Range Interpretation Comments Urine Urobilinogen (test code = 98659-4) 0.2 0.2-1 [facility] CenterUrine Fgvjgparc1888-95-88 15:01:00* Test Item Value Reference Range Interpretation Comments Urine Bilirubin (test code = 1977-8) NEGATIVE NEGATIVE [facility] Tjlla7903-56-89 15:01:00* Test Item Value Reference Range Interpretation Comments Urine Blood (test code = 42905-7) TRACE NEGATIVE H [facility] Rxpbu3951-13-82 15:01:00* Test Item Value Reference Range Interpretation Comments Urine Color (test code = 5778-6) YELLOW YELLOW [facility] Sdsvnwc2580-25-19 15:01:00* Test Item Value Reference Range Interpretation Comments Urine Clarity (test code = 49846-7) SL CLOUDY CLEAR H [facility] Specific Bjuwiii8952-07-09 15:01:00 * Test Item Value Reference Range Interpretation Comments Urine Specific [place] (test code = 5811-5) 1.020 1.010-1.[address] [facility] nC1483-96-75 15:01:00* Test Item Value Reference Range Interpretation Comments Urine pH (test code = 47783-9) 6 5-7 [facility] CenterUrine Leukocyte Ijmcxpjs9681-65-28 15:01:00* Test Item Value Reference Range Interpretation Comments Urine Leukocyte Esterase (test code = 50757-7) NEGATIVE NEGATIV E [facility] Chpnxsx5690-19-37 15:01:00* Test Item Value Reference Range Interpretation Comments Urine Nitrite (test code = 45495-6) NEGATIVE NEGATIVE [facility] Xqidiot0910-89-77 15:01:00* Test Item Value Reference Range Interpretation Comments Urine Protein (test code = 17816-5) 1+ NEGATIVE H [facility] CenterUrine Glucose (UA)2018-09-04 15:01:00* Test Item Value Reference Range Interpretation Comments Urine Glucose (UA) (test code = 18555-0) 3+ NEGATIVE [facility] Ybdlxtc2530-39-29 15:01:00* Test Item Value Reference Range Interpretation Comments Urine Ketones (test code = 53470-7) 2+ NEGATIVE H [facility] CenterUrine Adpucycexfsl4687-72-29 15:01:00* Test Item Value Reference Range Interpretation Comments Urine Urobilinogen (test code = 82813-8) 0.2 0.2-1 [facility] CenterUrine Zuzpsxvaf7290-84-26 15:01:00* Test Item Value Reference Range Interpretation Comments Urine Bilirubin (test code = 1977-8) NEGATIVE NEGATIVE [facility] CenterUrine Lcolf7365-65-49 15:01:00* Test Item Value Reference Range Interpretation Comments Urine Blood (test code = 06808-5) TRACE NEGATIVE H [facility] CenterCHEST SINGLE (PORTABLE)2018-09-04 15:01:00 [facility] [address] [place] [address] Patient Name: SHAHRIAR LEAL MR #: [id number] : 1940 Age/Sex: 77/M Req #: [id number] Adm Physician: Ordered by: BRI RENEE MD Report #: [id number] Location: ER Room/Bed: Procedure: [id number] DX /CHEST SINGLE (PORTABLE) Exam Date: Exam [...] COPY TO: BRI KIRKLAND MD B-Type Natriuretic Vvzgpez8486-18-30 15:00:00* Test Item Value Reference Range Interpretation Comments B-Type Natriuretic Peptide (test code = 87115-5) 79.5 0-100 [facility] CenterB-Type Natriuretic Fcisxvh8147-55-41 15:00:00* Test Item Value Reference Range Interpretation Comments B-Type Natriuretic Peptide (test code = 47022-4) 79.5 0-100 [facility] CenterCreatine Pdskpt0026-69-75 14:51:00* Test Item Value Reference Range Interpretation Comments Creatine Kinase (test code = 2157-6) 50 30-200 [facility] CenterCreatine Kinase GJ5152-95-28 14:51:00* Test Item Value Reference Range Interpretation Comments Creatine Kinase MB (test code = 91370-4) 0.90 0-5.0 [facility] CenterTroponin Q1202-02-63 14:51:00* Test Item Value Reference Range Interpretation Comments Troponin I (test code = BSX1433) 0.009 0-0.300 [facility] CenterLipase2019-06-07 14:51:00* Test Item Value Reference Range Interpretation Comments Lipase (test code = 3040-3) 31 8-78 [facility] CenterCreatine Ktzvdy4900-96-30 14:51:00* Test Item Value Reference Range Interpretation Comments Creatine Kinase (test code = 2157-6) 50 30-200 [facility] CenterCreatine Kinase SR4346-55-68 14:51:00* Test Item Value Reference Range Interpretation Comments Creatine Kinase MB (test code = 02005-2) 0.90 0-5.0 [facility] CenterTroponin Z6643-23-69 14:51:00* Test Item Value Reference Range Interpretation Comments Troponin I (test code = JOS9296) 0.009 0-0.300 [facility] CenterWdelaware [facility] Kmrotnx1046-33-21 10:42:00* Test Item Value Reference Range Interpretation Comments Wound Culture (test code = 6462-6) Organism: STAPHYLOCOCCUS AUREUS- MRSA [facility] Dlgamwt1528-45-54 10:42:00* Test Item Value Reference Range Interpretation Comments Wound Culture (test code = 6462-6) Organism: STAPHYLOCOCCUS AUREUS- MRSA [facility] CenterBedside Jsqcwox1742-33-58 11:37:00* Test Item Value Reference Range Interpretation Comments Bedside Glucose (test code = 80443-8) 104 70-120 Meter ID: [id number] [facility] Healthcare Medical CenterClostridium Difficile Toxin A & J1877-95-70 16:44:00* Test Item Value Reference Range Interpretation Comments Clostridium Difficile Toxin A & B (test code = 092335841) NEGATIVE NEGATIVE Testing on stool aspirate specimens is outside 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 since specime n type not validated on this assay.[facility] CenterC- Reactive Gxnqdjl2163-09-56 14:20:00* Test Item Value Reference Range Interpretation Comments C-Reactive Protein (test code = 1987-07) 18.0 0.0-4.9 H Performed at: [facility] [id number] Director: Manuel Nava MD, Phone: [phone] [facility] Healthcare Medical CenterC-Reactive Xnrbvvk2065-83-84 14:20:00* Test Item Value Reference Range Interpretation Comments C-Reactive Protein (test code = 1987-07) 18.0 0.0-4.9 H Performed at: [facility] [id number] Director: Manuel Nava MD, Phone: [phone] [facility] Healthcare Medical CenterC-Reactive Tsuswtq8539-83-69 14:20:00* Test Item Value Reference Range Interpretation Comments C-Reactive Protein (test code = 1987-07) 18.0 0.0-4.9 H Performed at: [facility] [id number] Director: Manuel Nava MD, Phone: [phone] [facility] Healthcare Medical CenterC-Reactive Bbdesnt8563-08-69 14:20:00* Test Item Value Reference Range Interpretation Comments C-Reactive Protein (test code = 1987-5) 18.0 0.0-4.9 H Performed at: - [facility] [id number] Director: Manuel Nava MD, Phone: [phone] [facility] Healthcare Medical CenterC-Reactive Snoeadv2870-45-88 14:20:00* Test Item Value Reference Range Interpretation Comments C-Reactive Protein (test code = 1987-) 18.0 0.0-4.9 H Performed at: - [facility] [id number] Director: Manuel Nava MD, Phone: [phone] [facility] Healthcare Medical CenterWound Rjxshjz8084-30-48 09:36:00* Test Item Value Reference Range Interpretation Comments Wound Culture (test code = 6462-6) Organism: STAPHYLOCOCCUS AUREUS- MRSA [facility] CenterVancomycin Level Egiswu8115-99-47 19:13:00* Test Item Value Reference Range Interpretation Comments Vancomycin Level Trough (test code = 4092-3) 19.5 5.0-10.0 HH Results repeated and called to CONSTANZA YEBOAH at 1911 on 06/24/18 by [facility]. Read back and verified.[facility] CenterVancomycin Level Cvdmdc3999-11-18 19:13:00* Test Item Value Reference Range Interpretation Comments Vancomycin Level Trough (test code = 4092-3) 19.5 5.0-10.0 HH Results repeated and called to CONSTANZA YEBOAH at 191106/24/18 by [facility]. Read back and verified.[facility] CenterVancomycin Level Xedoui9864-92-37 19:13:00* Test Item Value Reference Range Interpretation Comments Vancomycin Level Trough (test code = 4092-3) 19.5 5.0-10.0 HH Results repeated and called to CONSTANZA YEBOAH at 191106/24/18 by ARCADIO PEDERSON. Read back and verified.[facility] CenterErythrocyte Sedimentation Kwjw3936-04-64 08:27:00* Test Item Value Reference Range Interpretation Comments Erythrocyte Sedimentation Rate (test code = 4537-7) 28 0- 13 H [facility] CenterErythrocyte Sedimentation Ggiy1244-37-64 08:27:00* Test Item Value Reference Range Interpretation Comments Erythrocyte Sedimentation Rate (test code = 4537-7) 28 0- 13 H [facility] CenterErythrocyte Sedimentation Sjsx7085-08-01 08:27:00* Test Item Value Reference Range Interpretation Comments Erythrocyte Sedimentation Rate (test code = 4537-7) 28 0- 13 [facility] Ifpko3209-97-08 05:44:00* Test Item Value Reference Range Interpretation Comments Sodium Level (test code = 2951-2) 135 136-145 L [facility] CenterPotassium Masbj0698-79-84 05:44:00* Test Item Value Reference Range Interpretation Comments Potassium Level (test code = 2823-3) 3.5 3.5-5.1 [facility] CenterChloride Jurdj1402-52-78 05:44:00* Test Item Value Reference Range Interpretation Comments Chloride Level (test code = 2075-0) 105 98-107 [facility] CenterCarbon Dioxide Wocyp6789-73-06 05:44:00* Test Item Value Reference Range Interpretation Comments Carbon Dioxide Level (test code = 2028-9) 23 22- [facility] CenterAnion Ngb1014-79-96 05:44:00* Test Item Value Reference Range Interpretation Comments Anion Gap (test code = 64313-1) 10.5 8-16 [facility] CenterBlood Urea Xpuphjjq3422-93-29 05:44:00* Test Item Value Reference Range Interpretation Comments Blood Urea Nitrogen (test code = 3094-0) 22 7-26 [facility] CenterCreatinine2019-03-27 05:44:00* Test Item Value Reference Range Interpretation Comments Creatinine (test code = 2160-0) 1.09 0.72-1.25 [facility] CenterBUN/Creatinine Yseqk9726-27-14 05:44:00* Test Item Value Reference Range Interpretation Comments BUN/Creatinine Ratio (test code = 3097-3) 20 09-22 [facility] CenterEstimat Glomerular Filtration Rate 2018-06-24 05:44:00* Test Item Value Reference Range Interpretation Comments Estimat Glomerular Filtration Rate (test code = 220772033) > 60 >60 Ranges were taken from the National Kidney Disease Education Program and the [facility] systemsal Kidney Foundation literature.Reference ranges:60 or greater: Jucqur93-43 ( for 3 consecutive months): Chronic kidney disease 15 or less: Kidney failureCHI [facility] – BudaGlucose Bpvyd1924-22-65 05:44:00* Test Item Value Reference Range Interpretation Comments Glucose Level (test code = JZP9617) 50 74-118 LL Results repeated and called to RITCHIE SWARTZ RN at 0543 on 06/24/18 by Darrius wells Read back and verified.[facility] CenterCalcium Level 2018-06-24 05:44:00* Test Item Value Reference Range Interpretation Comments Calcium Level (test code = 40588-8) 8.2 8.4-10.2 L [facility] CenterFOOT RIGHT GYUZRDFF1466-03-36 19:31:00 [facility] [address] [address] Patient Name: SHAHRIAR LEAL MR #: [id number] : 1940 Age/Sex: 77/M Req #: [id number] Adm Physician: SHERIDAN MAHONEY MD Ordered by: APOLLO HAGAN MD Report #: [id number] Location: [facility] Room/Bed: [place] [address] Procedure: [id number] DX/ FOOT RIGHT COMPLETE Exam Date: 06/23/18 Exam Time: 1 820 REPORT STATUS: Signed Foot c chynalete CPT code: 17428 Indication: Infection 3 view [id number] Technique: Portable A.P., oblique and lateral views of the right foot obtained. Comparison: None Findings: There are prominent plantar s purs. There are umxl-bc-yrowlfiy degenerative changes of the tibiotalar joint and [...] COPY TO: APOLLO HAGAN MD FOOT LEFT FRXUKLZD4150-10-04 19:27:00 [place] [address] Patient Name: SHAHRIAR LEAL MR #: [id number] : 1940 Age/Sex: 77/M Req #: [id number] Adm Physician: SHERIDAN MAHONEY MD Ordered by: APOLLO HAGAN MD Report #: [id number] Location: [facility] Room/Bed: [place] [address] Procedure: [id number] DX/ FOOT LEFT COMPLETE Exam Date: 06/23/18 [...] O: APOLLO HAGAN MD BONE SCAN, 3 OGEPD4549-86-73 17:09:00 [place] [address] Patient Name: SHAHRIAR LEAL MR #: [id number] : 1940 Age/Sex: 77/M Req #: [id number] Adm Physician: SHERIDAN MAHONEY MD Ordered by: SHERIDAN MAHONEY MD Report #: [id number] Location: [facility] Room/Bed: [place] [address] Procedure: [id number] N M/BONE SCAN, 3 PHASE Exam Date: [...] Count (test code = 6690-2) 7.81 4.8-10.8 [facility] Blood Zonxk3077-85-52 05:52:00* Test Item Value Reference Range Interpretation Comments Red Blood Count (test code = 789-8) 3.68 4.3-5.7 L [facility] CenterHemoglobin2019-03-26 05:52:00* Test Item Value Reference Range Interpretation Comments Hemoglobin (test code = 17172-7) 10.8 14.0-18.0 L [facility] CenterHematocrit2019-03-26 05:52:00* Test Item Value Reference Range Interpretation Comments Hematocrit (test code = 4544-3) 33.0 38.2-49.6 L [facility] CenterMean Corpuscular Dpcmgy8469-76-73 05:52:00* Test Item Value Reference Range Interpretation Comments Mean Corpuscular Volume (test code = 787-2) 89.7 81-99 [facility] CenterMean Corpuscular Seknrofbyj5775-01-52 05:52:00* Test Item Value Reference Range Interpretation Comments Mean Corpuscular Hemoglobin (test code = 785-6) 29.3 28-32 [facility] CenterMean Corpuscular Hemoglobin Concent 2018-06-23 05:52:00* Test Item Value Reference Range Interpretation Comments Mean Corpuscular Hemoglobin Concent (test code = 786-4) 32.7 31-35 [facility] CenterRed Cell Distribution Phrxf1984-48-40 05:52:00* Test Item Value Reference Range Interpretation Comments Red Cell Distribution Width (test code = 34728-3) 15.5 11.7 -14.4 H [facility] CenterPlatelet Kwmcx1839-56-09 05:52:00* Test Item Value Reference Range Interpretation Comments Platelet Count (test code = 777-3) 145 140-360 [facility] CenterNeutrophils (%) (Auto)2018-06-23 05:52:00 * Test Item Value Reference Range Interpretation Comments Neutrophils (%) (Auto) (test code = 07721-7) 43.8 38.7-80.0 [facility] CenterLymphocytes (%) (Auto)2018-06-23 05:52:00 * Test Item Value Reference Range Interpretation Comments Lymphocytes (%) (Auto) (test code = 736-9) 38.7 18.0-39.1 [facility] CenterMonocytes (%) (Auto)2018-06-23 05:52:00* Test Item Value Reference Range Interpretation Comments Monocytes (%) (Auto) (test code = 5905-5) 16.1 4.4-11.3 H [facility] CenterEosinophils (%) (Auto)2018-06-23 05:52:00 * Test Item Value Reference Range Interpretation Comments Eosinophils (%) (Auto) (test code = 713-8) 0.5 0.0-6.0 [facility] CenterBasophils (%) (Auto)2018-06-23 05:52:00* Test Item Value Reference Range Interpretation Comments Basophils (%) (Auto) (test code = 706-2) 0.4 0.0-1.0 [facility] CenterIM GRANULOCYTES %2018-06-23 05:52:00* Test Item Value Reference Range Interpretation Comments IM GRANULOCYTES % (test code = IM GRANULOCYTES %) 0.5 0.0- 1.0 [facility] CenterNeutrophils # (Auto)2018-06-23 05:52:00* Test Item Value Reference Range Interpretation Comments Neutrophils # (Auto) (test code = 751-8) 3.4 2.1-6.9 [facility] CenterLymphocytes # (Auto)2018-06-23 05:52:00* Test Item Value Reference Range Interpretation Comments Lymphocytes # (Auto) (test code = 59887-1) 3.0 1.0-3.2 [facility] CenterMonocytes # (Auto)2018-06-23 05:52:00* Test Item Value Reference Range Interpretation Comments Monocytes # (Auto) (test code = 742-7) 1.3 0.2-0.8 H [facility] CenterEosinophils # (Auto)2018-06-23 05:52:00* Test Item Value Reference Range Interpretation Comments Eosinophils # (Auto) (test code = 711-2) 0.0 0.0-0.4 [facility] CenterBasophils # (Auto)2018-06-23 05:52:00* Test Item Value Reference Range Interpretation Comments Basophils # (Auto) (test code = 704-7) 0.0 0.0-0.1 [facility] CenterAbsolute Immature Granulocyte (auto 2018-06-23 05:52:00* Test Item Value Reference Range Interpretation Comments Absolute Immature Granulocyte (auto (jordon t code = Absolute Immature Granulocyte (auto) 0.04 0-0.1 [facility] CenterDifferential Total Cells Counted 2018-06-22 09:35:00* Test Item Value Reference Range Interpretation Comments Differential Total Cells Counted (test code = Differen tial Total Cells Counted) 100 [facility] CenterNeutrophils % (Manual)2018-06-22 09:35:00 * Test Item Value Reference Range Interpretation Comments Neutrophils % (Manual) (test code = 77390-7) 53 40-74 [facility] CenterLymphocytes % (Manual)2018-06-22 09:35:00 * Test Item Value Reference Range Interpretation Comments Lymphocytes % (Manual) (test code = 737-7) 19 19-48 [facility] CenterMonocytes % (Manual)2018-06-22 09:35:00* Test Item Value Reference Range Interpretation Comments Monocytes % (Manual) (test code = 744-3) 25 3.4-9.0 H [facility] CenterReactive Iftmrljdfzq7075-95-11 09:35:00* Test Item Value Reference Range Interpretation Comments Reactive Lymphocytes (test code = 84881-7) 3 [facility] CenterPlatelet Trqrtitl2387-90-93 09:35:00* Test Item Value Reference Range Interpretation Comments Platelet Estimate (test code = 16337-7) ADEQUATE [facility] CenterPlatelet Morphology Vzsmvku4401-59-85 09:35:00* Test Item Value Reference Range Interpretation Comments Platelet Morphology Comment (test code = 10837-4) NORMAL [facility] CenterRed Cell Morphology Njsabyv6129-61-69 09:35:00* Test Item Value Reference Range Interpretation Comments Red Cell Morphology Comment (test code = 6742-1) NORMAL [facility] CenterDifferential Total Cells Counted 2018-06-22 09:35:00* Test Item Value Reference Range Interpretation Comments Differential Total Cells Counted (test code = Differen tial Total Cells Counted) 100 [facility] CenterNeutrophils % (Manual)2018-06-22 09:35:00 * Test Item Value Reference Range Interpretation Comments Neutrophils % (Manual) (test code = 19648-3) 53 40-74 [facility] CenterLymphocytes % (Manual)2018-06-22 09:35:00 * Test Item Value Reference Range Interpretation Comments Lymphocytes % (Manual) (test code = 737-7) 19 19-48 [facility] CenterMonocytes % (Manual)2018-06-22 09:35:00* Test Item Value Reference Range Interpretation Comments Monocytes % (Manual) (test code = 744-3) 25 3.4-9.0 H [facility] CenterReactive Jzxitcjmuel8305-44-90 09:35:00* Test Item Value Reference Range Interpretation Comments Reactive Lymphocytes (test code = 01097-7) 3 [facility] CenterPlatelet Hbwbjcev1980-29-41 09:35:00* Test Item Value Reference Range Interpretation Comments Platelet Estimate (test code = 73586-3) ADEQUATE [facility] CenterPlatelet Morphology Uudndso6742-15-92 09:35:00* Test Item Value Reference Range Interpretation Comments Platelet Morphology Comment (test code = 83174-9) NORMAL [facility] CenterRed Cell Morphology Awlcgov5192-02-57 09:35:00* Test Item Value Reference Range Interpretation Comments Red Cell Morphology Comment (test code = 6742-1) NORMAL [facility] CenterDifferential Total Cells Counted 2018-06-22 09:35:00* Test Item Value Reference Range Interpretation Comments Differential Total Cells Counted (test code = Differen tial Total Cells Counted) 100 [facility] CenterNeutrophils % (Manual)2018-06-22 09:35:00 * Test Item Value Reference Range Interpretation Comments Neutrophils % (Manual) (test code = 76514-8) 53 40-74 [facility] CenterLymphocytes % (Manual)2018-06-22 09:35:00 * Test Item Value Reference Range Interpretation Comments Lymphocytes % (Manual) (test code = 737-7) 19 19-48 [facility] CenterMonocytes % (Manual)2018-06-22 09:35:00* Test Item Value Reference Range Interpretation Comments Monocytes % (Manual) (test code = 744-3) 25 3.4-9.0 H [facility] CenterReactive Cdezgknuroq5356-09-38 09:35:00* Test Item Value Reference Range Interpretation Comments Reactive Lymphocytes (test code = 03561-7) 3 [facility] CenterPlatelet Yfeoxwfd8256-76-94 09:35:00* Test Item Value Reference Range Interpretation Comments Platelet Estimate (test code = 79310-4) ADEQUATE [facility] CenterPlatelet Morphology Cjlnmae0755-67-58 09:35:00* Test Item Value Reference Range Interpretation Comments Platelet Morphology Comment (test code = 32118-0) NORMAL [facility] CenterRed Cell Morphology Civrimx9873-11-94 09:35:00* Test Item Value Reference Range Interpretation Comments Red Cell Morphology Comment (test code = 6742-1) NORMAL [facility] CenterDifferential Total Cells Counted 2018-06-22 09:35:00* Test Item Value Reference Range Interpretation Comments Differential Total Cells Counted (test code = Differaixa tial Total Cells Counted) 100 [facility] CenterNeutrophils % (Manual)2018-06-22 09:35:00 * Test Item Value Reference Range Interpretation Comments Neutrophils % (Manual) (test code = 75408-2) 53 40-74 [facility] CenterLymphocytes % (Manual)2018-06-22 09:35:00 * Test Item Value Reference Range Interpretation Comments Lymphocytes % (Manual) (test code = 737-7) 19 19-48 [facility] CenterMonocytes % (Manual)2018-06-22 09:35:00* Test Item Value Reference Range Interpretation Comments Monocytes % (Manual) (test code = 744-3) 25 3.4-9.0 H [facility] CenterReactive Vvaonzdxitg4136-79-55 09:35:00* Test Item Value Reference Range Interpretation Comments Reactive Lymphocytes (test code = 50318-3) 3 [facility] CenterPlatelet Kvhlpxfr9966-19-49 09:35:00* Test Item Value Reference Range Interpretation Comments Platelet Estimate (test code = 71564-7) ADEQUATE [facility] CenterPlatelet Morphology Fgfydhe2874-63-36 09:35:00* Test Item Value Reference Range Interpretation Comments Platelet Morphology Comment (test code = 36616-7) NORMAL [facility] CenterRed Cell Morphology Wxjmtoz4729-51-93 09:35:00* Test Item Value Reference Range Interpretation Comments Red Cell Morphology Comment (test code = 6742-1) NORMAL [facility] CenterDifferential Total Cells Counted 2018-06-22 09:35:00* Test Item Value Reference Range Interpretation Comments Differential Total Cells Counted (test code = Differen tial Total Cells Counted) 100 [facility] CenterNeutrophils % (Manual)2018-06-22 09:35:00 * Test Item Value Reference Range Interpretation Comments Neutrophils % (Manual) (test code = 05301-4) 53 40-74 [facility] CenterLymphocytes % (Manual)2018-06-22 09:35:00 * Test Item Value Reference Range Interpretation Comments Lymphocytes % (Manual) (test code = 737-7) 19 19-48 [facility] CenterMonocytes % (Manual)2018-06-22 09:35:00* Test Item Value Reference Range Interpretation Comments Monocytes % (Manual) (test code = 744-3) 25 3.4-9.0 H [facility] CenterReactive Vocpiyhagqg9870-92-60 09:35:00* Test Item Value Reference Range Interpretation Comments Reactive Lymphocytes (test code = 09477-1) 3 [facility] CenterPlatelet Vppwlzai5800-17-67 09:35:00* Test Item Value Reference Range Interpretation Comments Platelet Estimate (test code = 17889-8) ADEQUATE [facility] CenterPlatelet Morphology Netbkaf9318-32-08 09:35:00* Test Item Value Reference Range Interpretation Comments Platelet Morphology Comment (test code = 26966-8) NORMAL [facility] CenterRed Cell Morphology Zkvcnwq2613-06-70 09:35:00* Test Item Value Reference Range Interpretation Comments Red Cell Morphology Comment (test code = 6742-1) NORMAL [facility] CenterBand Neutrophils %2018-06-21 17:15:00* Test Item Value Reference Range Interpretation Comments Band Neutrophils % (test code = 764-1) 6 [facility] CenterBand Neutrophils %2018-06-21 17:15:00* Test Item Value Reference Range Interpretation Comments Band Neutrophils % (test code = 764-1) 6 [facility] CenterBand Neutrophils %2018-06-21 17:15:00* Test Item Value Reference Range Interpretation Comments Band Neutrophils % (test code = 764-1) 6 [facility] CenterBand Neutrophils %2018-06-21 17:15:00* Test Item Value Reference Range Interpretation Comments Band Neutrophils % (test code = 764-1) 6 [facility] CenterBand Neutrophils %2018-06-21 17:15:00* Test Item Value Reference Range Interpretation Comments Band Neutrophils % (test code = 764-1) 6 [facility] CenterUrine Mzife0126-46-20 16:27:00* Test Item Value Reference Range Interpretation Comments Urine Color (test code = 5778-6) YELLOW YELLOW [facility] CenterUrine Epyjdnv7349-21-31 16:27:00* Test Item Value Reference Range Interpretation Comments Urine Clarity (test code = 16449-2) HAZY CLEAR [facility] CenterUrine Specific Boovscr4276-82-11 16:27:00 * Test Item Value Reference Range Interpretation Comments Urine Specific [place] (test code = 5811-5) 1.025 1.010-1.02 5 [facility] CenterUrine fD1714-31-30 16:27:00* Test Item Value Reference Range Interpretation Comments Urine pH (test code = 40549-0) 6 5-7 [facility] CenterUrine Leukocyte Ouvglrev5462-02-15 16:27:00* Test Item Value Reference Range Interpretation Comments Urine Leukocyte Esterase (test code = 5799-2) NEGATIVE NEGATIVE [facility] CenterUrine Gurwene9031-39-16 16:27:00* Test Item Value Reference Range Interpretation Comments Urine Nitrite (test code = 58544-0) NEGATIVE NEGATIVE [facility] CenterUrine Mgbwyuq0784-94-07 16:27:00* Test Item Value Reference Range Interpretation Comments Urine Protein (test code = 5804-0) NEGATIVE NEGATIVE [facility] CenterUrine Glucose (UA)2018-06-21 16:27:00* Test Item Value Reference Range Interpretation Comments Urine Glucose (UA) (test code = 2349-9) NEGATIVE NEGATIVE [facility] CenterUrine Rzbgxzy5344-14-86 16:27:00* Test Item Value Reference Range Interpretation Comments Urine Ketones (test code = 94044-0) NEGATIVE NEGATIVE [facility] CenterUrine Flngbrdxycif7273-02-20 16:27:00* Test Item Value Reference Range Interpretation Comments Urine Urobilinogen (test code = 45067-3) 0.2 0.2-1 [facility] CenterUrine Sknyqienp0122-53-78 16:27:00* Test Item Value Reference Range Interpretation Comments Urine Bilirubin (test code = 1978-6) NEGATIVE NEGATIVE [facility] Zqzut8794-61-34 16:27:00* Test Item Value Reference Range Interpretation Comments Urine Blood (test code = 70530-1) NEGATIVE NEGATIVE [facility] CenterUrine LGH2951-02-47 16:27:00* Test Item Value Reference Range Interpretation Comments Urine WBC (test code = 5821-4) 0-5 0-5 [facility] CenterUrine OTM4022-50-33 16:27:00* Test Item Value Reference Range Interpretation Comments Urine RBC (test code = 95758-2) NONE 0-5 [facility] CenterUrine Djjylama6277-40-12 16:27:00* Test Item Value Reference Range Interpretation Comments Urine Bacteria (test code = 94348-1) FEW NONE [facility] CenterUrine Epithelial Uymfk1041-45-54 16:27:00 * Test Item Value Reference Range Interpretation Comments Urine Epithelial Cells (test code = 59680-4) FEW NONE [facility] CenterTotal Nveyvavuv2854-78-69 16:14:00* Test Item Value Reference Range Interpretation Comments Total Bilirubin (test code = 1975-2) 0.8 0.2-1.2 [facility] CenterAspartate Amino Transf (AST/SGOT) 2018-06-21 16:14:00* Test Item Value Reference Range Interpretation Comments Aspartate Amino Transf (AST/SGOT) (test code = Aspartate Amino Transf (AST/SGOT)) 17 5-34 [facility] CenterAlanine Aminotransferase (ALT/SGPT) 2018-06-21 16:14:00* Test Item Value Reference Range Interpretation Comments Alanine Aminotransferase (ALT/SGPT) (test code = 1742-6) 15 0-55 [facility] CenterTotal Pciywsa9000-27-07 16:14:00* Test Item Value Reference Range Interpretation Comments Total Protein (test code = 2885-2) 8.0 6.5-8.1 [facility] CenterAlbumin2019-03-24 16:14:00* Test Item Value Reference Range Interpretation Comments Albumin (test code = 1751-7) 3.9 3.5-5.0 [facility] CenterGlobulin2019-03-24 16:14:00* Test Item Value Reference Range Interpretation Comments Globulin (test code = 45471-5) 4.1 2.3-3.5 H [facility] CenterAlbumin/Globulin Hcpej0207-09-26 16:14:00 * Test Item Value Reference Range Interpretation Comments Albumin/Globulin Ratio (test code = 1759-0) 1.0 0.8-2.0 [facility] CenterAlkaline Xpckfmqmxvm6833-57-18 16:14:00* Test Item Value Reference Range Interpretation Comments Alkaline Phosphatase (test code = 6768-6) 75 40-150 [facility] CenterBASIC METABOLIC WHDXW4526-43-08 15:02:00 * Test Item Value Reference Range [...] CA) 8.7 mg/dL 8.5-10.1 N BASIC METABOLIC JJYBX5089-95-31 14:57:00* Test Item Value Reference Range Interpretation [...] code = CA) mg/dL 8.5-10.1 CBC W/O THGJ1306-57-73 14:44:00* Test Item Value Reference Range Interpretation [...] MPV) 11.3 fL 6.7-11.0 H CBC W/O YGND4420-21-79 14:43:00* Test Item Value Reference Range Interpretation [...] MPV) fL 6.7-11.0 - XR L-SPINE 2/3 GWTMT8555-51-31 14:23:00 FAX: Rodney Campoverde [place]: B St: REG Name: Jayne SOLOMONSHAHRIAR Parr [facility] : [birth year] Age/S: 77/M [address] [facility] Unit #: [id number] Loc: [place] [address] Phys: Rodney Campoverde MD Acct: [id number] Dis Date: Status: REG ER PHONE #: [phone] Exam Date: 05/19/2018 1344 FAX #: [phone] Reason: fall, pain EXAMS: CPT CODE: [id number] XR L-SPINE 2/3 VIEWS 68896 HISTORY: Fall and pain. COMPARISON: None available. [...] MD Technologist: RT YESENIA(R) Trnscrd Date/Time/By: 05/19 (7132) : By: [email or web address] Orig Print D/T: S: 05/19/2018 (8392) PAGE 1 Signed Report - XR HIP BI W/XNIYWZ2720-52-93 13:52:00 FAX: Rodney Campoverde [place]: B St: REG Name: SHAHRIAR GALLEGOS [facility] : [birth year] 41 Age/S: 77/M [address] [facility] Unit #: [id number] Loc: [place] [address] Phys: Rodney Campoverde MD Acct: [id number] Dis Date: Status: REG ER PHONE #: [phone] Exam Date: 05/19/2018 1347 FAX #: [phone] Reason: fall, pain EXAMS: CPT CODE: [id number] XR HIP BI W/PELVIS 07121 HISTORY: Fall and pain. COMPARISON: None available. [...] fracture or dislocation. Narrowed hip joints. at 1196 Reported and signed by: Luisito Cardoza M.D. CC: Rodney Campoverde MD Technologist: CELINA HOLTR) Trnscrd Date/Time/By: 05/19/2018 (9192) : By: [email or web address] Orig Print D/T: S: 05/19/2018 (3476) PAGE 1 Signed Report
--- NOTE | 2020-02-19 11:18 | NUR ---
OBS DAY 1. DX: WEAKNESS, ANEMIA, N/V SENT TO R1 FOR LOC DETERMINATION
--- NOTE | 2020-02-19 14:07 | Operative Report ---
DATE OF PROCEDURE: 02/19/2020 SURGEON: Shlomo Majano MD PROCEDURE: EGD with biopsies. REFERRING PHYSICIAN: Dr. Stephan Renteria. INDICATIONS FOR EGD: History of hematemesis. MEDICATIONS: The patient was done under MAC, please see anesthesiologist's note. PROCEDURE IN DETAIL: With the patient in left lateral decubitus position, a flexible fiberoptic Olympus gastroscope was introduced into the esophagus under direct visualization without any difficulty. There were some exudates noted in the distal esophagus. There was no active bleeding or stigmata of recent hemorrhage. The scope was then advanced with ease into the stomach. Mucosa overlying the antrum and the body revealed some patchy erythema and low-grade edema and biopsies were obtained and sent to stain for H. pylori. The pylorus was of normal contour and shape was intubated with ease and the scope was advanced all the way to the second portion of the duodenum. The scope was then withdrawn slowly mucosa overlying the proximal second portion and the duodenal bulb appeared to be within normal limits. The scope was then withdrawn back into the stomach and retroflexed and mucosa overlying the fundus and cardia appeared to be within normal limits. The scope was then straightened out, it was subsequently withdrawn. The patient tolerated procedure well. IMPRESSION: 1. Distal esophagitis. 2. Gastritis, biopsied. Biopsies sent to stain for H pylori. PLAN: Follow up histology. Continue PPI therapy. Continue IV Reglan. Initiate GI soft diet. Shlomo Majano MD [facility] [place] /[id number] cc: Stephan Renteria MD
[2020-02-19] MEDS ORDERED: SUCCINYLCHOLINE CHLORIDE 20 MG/ML 10ML VIAL ONE (14:58)
[2020-02-19] MEDS ORDERED: FENTANYL CITRATE/PF 100MCG/2 ML INJ ONE (14:58)
[2020-02-19] MEDS ORDERED: LIDOCAINE HCL 2% LOCAL INJ 5 ML SDV VIAL INJ ONE ×2 (14:58→15:02)
[2020-02-19] MEDS ORDERED: ONDANSETRON HCL INJ 2MG/ML 2ML 2 MG/ML VIAL ONE (14:58)
[2020-02-19] MEDS ORDERED: DEXAMETHASONE SOD PHOS INJ 4 MG/ML VIAL ONE (14:58)
[2020-02-19] MEDS ORDERED: PROPOFOL IV EMULSION 10 MG/ML 20 ML VIAL ONE ×2 (14:58→15:02)
[2020-02-19] MEDS ORDERED: SEVOFLURANE INHAL SOLN 250 ML PEN BTL ONE (14:58)
--- NOTE | 2020-02-19 16:49 | NUR ---
PICC line dressing changed to RUE.
--- NOTE | 2020-02-20 02:34 | History and Physical ---
PRIMARY CARE PHYSICIAN: Delfina Johnson MD, at [facility]. CHIEF COMPLAINT: Hematemesis. HISTORY OF PRESENT ILLNESS: This is a 79-year-old male with dementia. Unfortunately, the patient cannot give any history per the [facility] doctor. The patient is on meropenem and IV gentamicin for sacral osteomyelitis. However, the patient developed intractable nausea, vomiting with possible coffee-grounds emesis. The patient currently still nauseated, but has not vomited, although he did receive IV Phenergan. PAST MEDICAL AND SURGICAL HISTORY: 1. Previous diverting colostomy. 2. Diabetes. 3. Hypertension. 4. Toe amputation due to peripheral vascular disease. 5. Old stroke. 6. Atrial fibrillation. 7. Hypothyroidism. 8. CHF. 9. Coronary artery disease. MEDICATIONS: Please see medication reconciliation form. ALLERGIES: TO CODEINE AND PENICILLIN. SOCIAL HISTORY: Unable to obtain due to dementia. FAMILY HISTORY: Unable to obtain due to dementia. REVIEW OF SYSTEMS: Unable to obtain due to dementia. PHYSICAL EXAMINATION: VITAL SIGNS: Temperature 98.8, pulse 88, respiratory rate 18, blood pressure 129/53. GENERAL: No acute distress. SKIN: No rash. HEENT: Anicteric. Oropharynx is clear. LUNGS: Clear. HEART: Regular rate and rhythm. Normal S1, S2. ABDOMEN: Soft, nontender. NEUROLOGIC: Disoriented. PSYCHIATRIC: Calm. MUSCULOSKELETAL: Moving all extremities. LABORATORY DATA: Initial white count was 10.7, today is 16. Hemoglobin 9.6, platelet count 241. PT, PTT are normal. Creatinine is 0.8, potassium 2.9, magnesium 1.0. ASSESSMENT AND PLAN: 1. Possibly coffee-grounds emesis. We will consult gastrointestinal for assistance given the possibility of hematemesis, we will hold his Eliquis and Plavix until gastrointestinal workup is complete to see if we can restart. 2. Sacral osteomyelitis. Per report, the patient is on [facility]openem [facility]amicin at the [facility]. We will consult Infectious Disease for assistance. The patient currently has a PICC line. 3. Hypokalemia and low magnesium. We will replete and then repeat in the morning. 4. Leukocytosis. The patient is afebrile, unclear etiology, potentially reactive. We will repeat in the morning. 5. Gastrointestinal, deep venous thrombosis prophylaxis. No chemical deep venous thrombosis prophylaxis due to the possibility of hematemesis. 6. Disposition, depending on how his nausea is and after gastrointestinal workup, the patient may potentially be able to go back to the [facility] soon, and if not, we will change in to inpatient instead of just observation and continue treatment. Physical Therapy has been initiated as well. I have updated his primary care doctor about this hospitalization. Yiching MD MARTA Meyers/VINICIUS /[id number]
--- NOTE | 2020-02-20 04:30 | NUR ---
patients blood pressure has been re-assessed and found to be 157/68. patient is resting comfortably in the bed. bed is in lowest position and call light is within reach. will continue to monitor patient.
[2020-02-20] MEDS: METOCLOPRAMIDE HCL 10 MG/2ML VIAL IV SCH ×2 (05:36→12:52)
[2020-02-20 06:17] LABS: BASOPHILS % 0.2 % (0.0-1.0); EOSINOPHILS % 0.2 % (0.0-6.0); HEMATOCRIT 27.2 % (38.2-49.6); HEMOGLOBIN 8.9 g/dL (14.0-18.0); LYMPHOCYTES # (AUTO) 2.6 (1.0-3.2); LYMPHOCYTES % 20.9 % (18.0-39.1); MEAN CORPUSCULAR HEMOGLOBIN 27.6 pg (28-32); MEAN CORPUSCULAR HGB CONC 32.7 g/dL (31-35); MEAN CORPUSCULAR VOLUME 84.2 fL (81-99); MONOCYTES # (AUTO) 1.5 (0.2-0.8); MONOCYTES % 11.7 % (4.4-11.3); NEUTROPHILS # (AUTO) 8.3 (2.1-6.9); NEUTROPHILS % 66.1 % (38.7-80.0); PLATELET COUNT 210 x10e3/uL (140-360); RED BLOOD COUNT 3.23 x10e6/uL (4.3-5.7); RED CELL DISTRIBUTION WIDTH 15.9 % (11.7-14.4)
[2020-02-20] MEDS: PANTOPRAZOL 40MG/SOD CHL 0.9% 250 ML IV SCH (06:22)
[2020-02-20 06:33] LABS: BLOOD UREA NITROGEN 8 mg/dL (7-26); BUN/CREATININE RATIO 10 (6-25); CALCIUM 7.7 mg/dL (8.4-10.2); CARBON DIOXIDE 25 mmol/L (22-29); CHLORIDE 101 mmol/L (98-107); EST GLOMERULAR FILTRATION RATE > 60 ML/MIN (60-); GLUCOSE 181 mg/dL (74-118); MAGNESIUM 1.3 MG/DL (1.3-2.1); SODIUM 136 mmol/L (136-145)
[2020-02-20 08:00] VITALS: BP 155/49
[2020-02-20] MEDS ORDERED: MAGNESIUM SULFATE 2GM/50ML 50 ML IV ONE (10:15)
[2020-02-20] MEDS ORDERED: FLUCONAZOLE 100 MG TAB PO ONE (10:30)
[2020-02-20] MEDS ORDERED: POTASSIUM CHLORIDE 20 MEQ TAB CR PO ONE (10:30)
--- NOTE | 2020-02-20 10:36 | NUR ---
Delfina Johnson MD, at [facility]. CHIEF COMPLAINT: Hematemesis. HISTORY OF PRESENT ILLNESS: This is a 79-year-old male with dementia. Unfortunately, the patient cannot give any history per the alf doctor. The patient is on meropenem and IV gentamicin for sacral osteomyelitis. However, the patient developed intractable nausea, vomiting with possible coffee-grounds emesis. The patient currently still nauseated, but has not vomited, although he did receive IV Phenergan. PAST MEDICAL AND SURGICAL HISTORY: 1. Previous diverting colostomy. 2. Diabetes. 3. Hypertension. 4. Toe amputation due to peripheral vascular disease. 5. Old stroke. 6. Atrial fibrillation. 7. Hypothyroidism. 8. CHF. 9. Coronary artery disease. MEDICATIONS: Please see medication reconciliation form. ALLERGIES: TO CODEINE AND PENICILLIN. SOCIAL HISTORY: Unable to obtain due to dementia. FAMILY HISTORY: Unable to obtain due to dementia. REVIEW OF SYSTEMS: Unable to obtain due to dementia. [id number]
[2020-02-20] MEDS ORDERED: FLUCONAZOLE 200 MG/100 ML 100 ML IV SCH (11:30)
[2020-02-20 12:00] VITALS: BP 142/72
--- NOTE | 2020-02-20 15:04 | NUR ---
REC'D ORDERS TO TRANSFER PT BACK TO [facility] CM CALLED [facility] AND SPOKE WITH [employer]EIGN BANKNOTE TELLER, DANA SHE STATES PT CAN RETURN TO ROOM 7B TODAY CM SPOKE WITH PT AND HIS , EXPLAINED THAT PT WILL BE RETURNING TO [facility] TODAY AND BOTH ARE AGREEABLE NO AMBULANCE PREFERENCE COVID RESULTS PENDING COVID FORM FILLED OUT AND PLACED IN PACKET FOR TRANSFER; COPY IN CHART RTF FILLED OUT AND GIVEN TO NURSE TO COMPLETE PT WILL BE TRANSFERRING TO [facility] TODAY ACCEPTING FACILITY: [facility] [address] [place] [address] CALL REPORT TO [phone] ROOM 7B
--- NOTE | 2020-02-20 15:29 | NUR ---
henriquez catheter was removed and changed with a new 16f.
[2020-02-20] MEDS ORDERED: HYDROCODONE/APAP 10MG-325MG TAB PO ONE (15:30)
--- NOTE | 2020-02-20 15:33 | NUR ---
Report called to Delfina. Patient is returning to [facility]B.
[2020-02-20 16:00] VITALS: BP 126/54
--- NOTE | 2020-02-20 18:01 | Consultation ---
DATE OF CONSULTATION: REASON FOR CONSULTATION: 1. Osteomyelitis. 2. antibiotic. HISTORY OF PRESENT ILLNESS: The patient who is a 79-year-old white male, coming to us from a [facility]. He does . He has history of dementia, diabetes mellitus, colostomy, hypertension, toe amputation, peripheral vascular disease, obesity, old stroke, atrial fibrillation, hypothyroidism, congestive heart failure, coronary artery disease, complicated medical history as mentioned. He apparently was recently diagnosed with osteomyelitis. He was given Zosyn and gentamicin. The patient is coming with nausea and vomiting and not feeling well. The patient is currently in bed. I am asked to see him. He has no complaints, but he does have underlying history of dementia. LABORATORY DATA: The patient when he first came, his laboratory data showed a white count of 10.6, hemoglobin 10.4. His sodium 136, potassium 3 with creatinine of 0.8. The patient currently is on no antibiotic. His urine culture showing yeast. Blood culture was negative. PHYSICAL EXAMINATION: GENERAL: Currently alert, oriented. VITAL SIGNS: Stable, currently afebrile. HEENT: He is not icteric. NECK: Supple. CHEST: Clear bilateral. HEART: S1 and S2. ABDOMEN: Soft. Bowel sounds present. EXTREMITIES: No edema. SKIN: There is no rash. IMPRESSION: 1. Nausea, vomiting, concerns are drug-related. 2. Decubitus ulcers. We will get a CT to assess IV antibiotic. We will need to get the old record. 3. Underlying dementia. 4. History of diabetes mellitus. 5. History of hypertension. 6. History of old stroke. 7. Funguria. We will give oral diflucan. 8. We will follow. MD GHILSAINE Alan/VINICIUS /[id number]
--- NOTE | 2020-02-20 20:27 | Discharge Summary ---
PRIMARY CARE DOCTOR: Dr. Delfina Johnson at [facility]. FINAL DIAGNOSIS: Intractable nausea and vomiting with possible coffee-ground emesis. SECONDARY DIAGNOSES: 1. Sacral osteomyelitis, already on IV antibiotic via PICC line at the [facility]. 2. Diverting colostomy status. 3. Diabetes. 4. Hypertension. 5. Previous toe amputation due to peripheral vascular disease. 6. Old stroke. 7. Atrial fibrillation. 8. Coronary artery disease. CONSULTANTS: 1. Dr. Majano, GI. 2. Dr. Zacarias, Infectious Disease. PROCEDURE/STUDIES PERFORMED: EGD. HISTORY: Per [facility] HOSPITAL COURSE: The patient underwent an EGD, which showed distal esophagitis and gastritis. The patient now is tolerating p.o. I have discussed with Dr. Majano. We will go ahead and restart his Plavix and Eliquis. I have updated his primary care doctor. The patient was seen and examined today. CONDITION ON DISCHARGE: Improved. DISCHARGE MEDICATIONS: Please see medication reconciliation form. MD MARTA Bustos/VINICIUS /[id number]
== END 2020-02-20 17:13 ==
LOC: ER 18:20 → ERHOLD 20:04 → MED/SURG2 21:08
PROVIDERS: ADMIT Internal Medicine; ATTEND Internal Medicine
DX: K20.90 Esophagitis, unspecified without bleeding (principal); K29.70 Gastritis, unspecified, without bleeding; E83.42 Hypomagnesemia; F03.90 Unspecified dementia, unspecified severity, without behavioral disturbance, psychotic disturbance, mood disturbance, and anxiety; E11.9 Type 2 diabetes mellitus without complications; I25.10 Atherosclerotic heart disease of native coronary artery without angina pectoris; Z88.5 Allergy status to narcotic agent; Z88.0 Allergy status to penicillin; M86.68 Other chronic osteomyelitis, other site; E87.6 Hypokalemia; D72.829 Elevated white blood cell count, unspecified; Z93.3 Colostomy status; Z86.73 Personal history of transient ischemic attack (TIA), and cerebral infarction without residual deficits; I48.91 Unspecified atrial fibrillation; Z95.810 Presence of automatic (implantable) cardiac defibrillator; I50.9 Heart failure, unspecified; B37.49 Other urogenital candidiasis; Z20.828 Contact with and (suspected) exposure to other viral communicable diseases
CPT/HCPCS: 36415 ×3; 43239; 71045; 80048; 80053 ×2; 81001; 82550; 82553; 82948 ×3; 83735 ×2; 83880; 84484; 85025 ×3; 85610; 85730; 86850; 86900; 87040; 87086; 88305; 88312; 93005; 99284; C9113; G0378 ×3; J0330; J1100; J1450; J2001; J2405 ×2; J2550; J2704; J2765 ×2; J3010; J3475 ×2; J7030; J7050; U0002

== ENCOUNTER 2020-03-02 | Inpatient (IN) | payer MEDICARE ==
[2020-03-02] VITALS (8 sets, daily range): BP systolic 81–117; BP diastolic 54–99
[~2020-03-02] VITALS: Ht 182.9 cm; Wt 115.7 kg
[2020-03-02] MEDS ORDERED: DEXTROSE 50% SYRINGE 50 ML IV STA (00:06)
[2020-03-02] MEDS ORDERED: DEXTROSE 50% SYRINGE 50 ML IV ONE (00:13)
[2020-03-02 00:48] LABS: BASOPHILS % 0.3 % (0.0-1.0); EOSINOPHILS % 0.3 % (0.0-6.0); HEMOGLOBIN 7.3 g/dL (14.0-18.0); LYMPHOCYTES % 31.9 % (18.0-39.1); MEAN CORPUSCULAR HEMOGLOBIN 27.5 pg (28-32); MEAN CORPUSCULAR HGB CONC 31.7 g/dL (31-35); MEAN CORPUSCULAR VOLUME 86.8 fL (81-99); MONOCYTES # (AUTO) 1.5 (0.2-0.8); MONOCYTES % 12.3 % (4.4-11.3); NEUTROPHILS # (AUTO) 6.8 (2.1-6.9); NEUTROPHILS % 54.6 % (38.7-80.0); PLATELET COUNT 227 x10e3/uL (140-360); RED BLOOD COUNT 2.65 x10e6/uL (4.3-5.7); RED CELL DISTRIBUTION WIDTH 15.9 % (11.7-14.4)
[2020-03-02 00:57] LABS: INR 1.27; PROTHROMBIN TIME 16.5 seconds (11.9-14.5)
[2020-03-02 00:58] LABS: PARTIAL THROMBOPLASTIN TIME 45.5 seconds (23.8-35.5)
[2020-03-02 01:04] LABS: ALBUMIN 2.6 g/dL (3.5-5.0); ALBUMIN/GLOBULIN RATIO 0.7 (0.8-2.0); ANION GAP 15.3 mmol/L (8-16); CALCIUM 8.4 mg/dL (8.4-10.2); CREATININE, SERUM 1.58 mg/dL (0.72-1.25); POTASSIUM 4.3 mmol/L (3.5-5.1)
[2020-03-02 01:28] LABS: BILIRUBIN,URINE LARGE (NEGATIVE); CLARITY,URINE TURBID (CLEAR); COLOR,URINE RED (YELLOW); KETONES,URINE 1+ (NEGATIVE); LEUKOCYTE ESTERASE ,URINE LARGE (NEGATIVE); NITRITE,URINE NEGATIVE (NEGATIVE); PROTEIN,URINE DIPSTICK >=300 (NEGATIVE)
[2020-03-02 01:32] LABS: AMORPHOUS SEDIMENT,URINE MODERATE (FEW); BACTERIA,URINE MODERATE /HPF; EPITHELIAL CELLS,URINE FEW /LPF; RBC,URINE >50 /HPF (0-5)
[2020-03-02] MEDS ORDERED: ONDANSETRON HCL INJ 2MG/ML 2ML 2 MG/ML VIAL IV PRN (01:45)
[2020-03-02] MEDS ORDERED: DEXTROSE 50% SYRINGE 50 ML IV PRN (01:45)
[2020-03-02] MEDS ORDERED: DEXTROSE 5%/0.45% SOD CHL 1,000 ML IV ONE (01:45)
[2020-03-02 06:25] LABS: BASOPHILS % 0.2 % (0.0-1.0); EOSINOPHILS % 0.4 % (0.0-6.0); LYMPHOCYTES # (AUTO) 2.8 (1.0-3.2); MEAN CORPUSCULAR HEMOGLOBIN 27.6 pg (28-32); MEAN CORPUSCULAR HGB CONC 31.9 g/dL (31-35); MEAN CORPUSCULAR VOLUME 86.6 fL (81-99); MONOCYTES # (AUTO) 1.4 (0.2-0.8); MONOCYTES % 13.2 % (4.4-11.3); NEUTROPHILS # (AUTO) 6.3 (2.1-6.9); NEUTROPHILS % 59.5 % (38.7-80.0); PLATELET COUNT 202 x10e3/uL (140-360); RED BLOOD COUNT 2.39 x10e6/uL (4.3-5.7); RED CELL DISTRIBUTION WIDTH 15.8 % (11.7-14.4)
[2020-03-02 06:30] LABS: HEMATOCRIT 20.7 % (38.2-49.6); HEMOGLOBIN 6.6 g/dL (14.0-18.0)
[2020-03-02] MEDS ORDERED: SODIUM CHLORIDE 0.9% 250ML 250 ML IV ONE (06:45)
[2020-03-02] MEDS: INSULIN REGULAR, HUMAN 100 UNIT/1 ML 3ML VIAL SQ SCH ×3 (07:17→17:17)
[2020-03-02] MEDS ORDERED: SODIUM CHLORIDE 0.9% 250ML 250 ML ONE (10:21)
[2020-03-02] MEDS ORDERED: LORAZEPAM INJ 2 MG/ML VIAL IV PRN (12:30)
[2020-03-02 12:43] LABS: CLARITY,URINE TURBID (CLEAR); COLOR,URINE RED (YELLOW)
[2020-03-02 12:44] LABS: BACTERIA,URINE FEW /HPF; BILIRUBIN,URINE LARGE (NEGATIVE); KETONES,URINE 1+ (NEGATIVE); LEUKOCYTE ESTERASE ,URINE MODERATE (NEGATIVE); NITRITE,URINE NEGATIVE (NEGATIVE); PROTEIN,URINE DIPSTICK >=300 (NEGATIVE); RBC,URINE >50 /HPF (0-5)
[2020-03-02] MEDS ORDERED: MEROPENEM 500MG 500 MG in SODIUM CHLORIDE 0.9% 50ML 50 ML IV SCH (14:00)
[2020-03-02] MEDS ORDERED: MEROPENEM 500MG/ NS 50ML 50 ML IV SCH (14:00)
[2020-03-02 16:02] LABS: BASOPHILS % 0.2 % (0.0-1.0); EOSINOPHILS % 0.3 % (0.0-6.0); HEMATOCRIT 22.6 % (38.2-49.6); HEMOGLOBIN 7.4 g/dL (14.0-18.0); LYMPHOCYTES % 24.2 % (18.0-39.1); MEAN CORPUSCULAR HGB CONC 32.7 g/dL (31-35); MEAN CORPUSCULAR VOLUME 85.6 fL (81-99); MONOCYTES # (AUTO) 1.8 (0.2-0.8); MONOCYTES % 14.5 % (4.4-11.3); NEUTROPHILS # (AUTO) 7.5 (2.1-6.9); NEUTROPHILS % 60.2 % (38.7-80.0); PLATELET COUNT 195 x10e3/uL (140-360); RED BLOOD COUNT 2.64 x10e6/uL (4.3-5.7); RED CELL DISTRIBUTION WIDTH 15.9 % (11.7-14.4)
[2020-03-02 16:20] LABS: ANION GAP 15.5 mmol/L (8-16); CALCIUM 7.9 mg/dL (8.4-10.2); CREATININE, SERUM 1.7 mg/dL (0.72-1.25); POTASSIUM 4.5 mmol/L (3.5-5.1)
[2020-03-02 16:22] LABS: % IRON SATURATION 31 % (15-50); IRON 49 ug/dL (65-175); TOTAL IRON BINDING CAPACITY 158 ug/dL (261-478); TRANSFERRIN 113 mg/dL (174-364)
[2020-03-02] MEDS ORDERED: FERROUS SULFAT325 MG (18:07)
[2020-03-02] MEDS ORDERED: LISINOPRIL2.5 MG PO (18:07)
[2020-03-02] MEDS ORDERED: CLOPIDOGREL75 MG PO (18:07)
[2020-03-02] MEDS ORDERED: METFORMIN HCL500 MG PO (18:07)
[2020-03-02] MEDS ORDERED: ELIQUIS2.5 MG (18:07)
[2020-03-02] MEDS ORDERED: MIDODRINE HCL2.5 MG PO (18:10)
[2020-03-02] MEDS ORDERED: PROTONIX20 MG PO (18:10)
[2020-03-02] MEDS ORDERED: METOPROLOL SUCC25 MG (18:10)
[2020-03-02] MEDS ORDERED: DIPHENHYDRAMINE HCL 25 MG CAP PO PRN (20:00)
[2020-03-02] MEDS ORDERED: ALPRAZOLAM 1 MG TAB PO PRN (20:00)
[2020-03-02] MEDS ORDERED: LACTATED RINGER'S 1,000 ML INJ ONE (20:15)
[2020-03-02] MEDS ORDERED: ATORVASTATIN 10 MG TAB PO SCH (21:00)
[2020-03-02] MEDS: INSULIN LISPRO 100 UNIT/1 ML 3ML VIAL SQ SCH (21:00)
[2020-03-02] MEDS: EZETIMIBE 10 MG TAB PO SCH (21:01)
[2020-03-02] MEDS: ATORVASTATIN 40 MG TAB PO SCH (21:01)
[2020-03-03] VITALS (9 sets, daily range): BP systolic 98–124; BP diastolic 56–82
[2020-03-03] MEDS: MEROPENEM 500MG/ NS 50ML 50 ML IV SCH ×3 (02:20→21:46)
[2020-03-03] MEDS ORDERED: SODIUM CHLORIDE 0.9% 250ML 250 ML ONE ×2 (02:29→21:42)
[2020-03-03] MEDS ORDERED: LEVOTHYROXINE SODIUM 125 MCG TAB PO SCH (06:00)
[2020-03-03] MEDS: SALMETEROL/FLUTICASONE 500/50 INH SCH (06:00)
[2020-03-03] MEDS: LEVOTHYROXINE SODIUM 25 MCG TABLET PO SCH (06:25)
[2020-03-03] MEDS: LEVOTHYROXINE SODIUM 112 MCG TAB PO SCH (06:25)
[2020-03-03 06:34] LABS: BASOPHILS % 0.2 % (0.0-1.0); EOSINOPHILS # (AUTO) 0.1 (0.0-0.4); EOSINOPHILS % 0.6 % (0.0-6.0); HEMATOCRIT 22.1 % (38.2-49.6); HEMOGLOBIN 7.2 g/dL (14.0-18.0); LYMPHOCYTES # (AUTO) 2.8 (1.0-3.2); LYMPHOCYTES % 30.3 % (18.0-39.1); MEAN CORPUSCULAR HEMOGLOBIN 27.5 pg (28-32); MEAN CORPUSCULAR HGB CONC 32.6 g/dL (31-35); MEAN CORPUSCULAR VOLUME 84.4 fL (81-99); MONOCYTES # (AUTO) 1.3 (0.2-0.8); NEUTROPHILS # (AUTO) 5.1 (2.1-6.9); NEUTROPHILS % 54.3 % (38.7-80.0); PLATELET COUNT 204 x10e3/uL (140-360); RED BLOOD COUNT 2.62 x10e6/uL (4.3-5.7); RED CELL DISTRIBUTION WIDTH 15.9 % (11.7-14.4)
[2020-03-03 07:10] LABS: ANION GAP 13.2 mmol/L (8-16); BLOOD UREA NITROGEN 19 mg/dL (7-26); BUN/CREATININE RATIO 17 (6-25); CALCIUM 7.9 mg/dL (8.4-10.2); CARBON DIOXIDE 23 mmol/L (22-29); CHLORIDE 102 mmol/L (98-107); CREATININE, SERUM 1.12 mg/dL (0.72-1.25); EST GLOMERULAR FILTRATION RATE > 60 ML/MIN (60-); GLUCOSE 110 mg/dL (74-118); POTASSIUM 4.2 mmol/L (3.5-5.1); SODIUM 134 mmol/L (136-145)
[2020-03-03] MEDS: INSULIN LISPRO 100 UNIT/1 ML 3ML VIAL SQ SCH ×4 (07:30→21:00)
[2020-03-03] MEDS: PANTOPRAZOLE SOD 40 MG TABEC PO SCH (08:30)
[2020-03-03] MEDS: HYDROCODONE/APAP 10MG-325MG TAB PO PRN ×2 (08:51→21:52)
[2020-03-03] MEDS: METOPROLOL SUCCINATE 25 MG TAB XL PO SCH (08:52)
[2020-03-03] MEDS: CITALOPRAM HYDROBROMIDE 20 MG TAB PO SCH (08:52)
[2020-03-03] MEDS: EZETIMIBE 10 MG TAB PO SCH (21:45)
[2020-03-03] MEDS: ATORVASTATIN 40 MG TAB PO SCH (21:45)
[2020-03-04] VITALS (9 sets, daily range): BP systolic 101–116; BP diastolic 51–59
[2020-03-04] MEDS: MEROPENEM 500MG/ NS 50ML 50 ML IV SCH ×3 (05:29→20:43)
[2020-03-04] MEDS: LEVOTHYROXINE SODIUM 25 MCG TABLET PO SCH (05:29)
[2020-03-04] MEDS: LEVOTHYROXINE SODIUM 112 MCG TAB PO SCH (05:29)
[2020-03-04] MEDS: HYDROCODONE/APAP 10MG-325MG TAB PO PRN ×3 (05:30→21:39)
[2020-03-04 05:41] LABS: BASOPHILS % 0.3 % (0.0-1.0); EOSINOPHILS # (AUTO) 0.1 (0.0-0.4); EOSINOPHILS % 0.7 % (0.0-6.0); HEMATOCRIT 23.4 % (38.2-49.6); HEMOGLOBIN 7.5 g/dL (14.0-18.0); LYMPHOCYTES # (AUTO) 2.5 (1.0-3.2); LYMPHOCYTES % 28.8 % (18.0-39.1); MEAN CORPUSCULAR HEMOGLOBIN 27.5 pg (28-32); MEAN CORPUSCULAR HGB CONC 32.1 g/dL (31-35); MEAN CORPUSCULAR VOLUME 85.7 fL (81-99); MONOCYTES % 11.5 % (4.4-11.3); NEUTROPHILS # (AUTO) 5.1 (2.1-6.9); NEUTROPHILS % 57.9 % (38.7-80.0); PLATELET COUNT 219 x10e3/uL (140-360); RED BLOOD COUNT 2.73 x10e6/uL (4.3-5.7); RED CELL DISTRIBUTION WIDTH 15.8 % (11.7-14.4)
[2020-03-04 05:58] LABS: ANION GAP 16.1 mmol/L (8-16); BLOOD UREA NITROGEN 14 mg/dL (7-26); BUN/CREATININE RATIO 16 (6-25); CALCIUM 8.1 mg/dL (8.4-10.2); CARBON DIOXIDE 23 mmol/L (22-29); CHLORIDE 101 mmol/L (98-107); CREATININE, SERUM 0.86 mg/dL (0.72-1.25); EST GLOMERULAR FILTRATION RATE > 60 ML/MIN (60-); GLUCOSE 123 mg/dL (74-118); POTASSIUM 4.1 mmol/L (3.5-5.1); SODIUM 136 mmol/L (136-145)
[2020-03-04] MEDS: SALMETEROL/FLUTICASONE 500/50 INH SCH (06:40)
[2020-03-04] MEDS: CITALOPRAM HYDROBROMIDE 20 MG TAB PO SCH (08:11)
[2020-03-04] MEDS: PANTOPRAZOLE SOD 40 MG TABEC PO SCH (08:11)
[2020-03-04] MEDS: INSULIN LISPRO 100 UNIT/1 ML 3ML VIAL SQ SCH ×4 (08:12→21:37)
[2020-03-04] MEDS: METOPROLOL SUCCINATE 25 MG TAB XL PO SCH (08:12)
[2020-03-04] MEDS: ATORVASTATIN 40 MG TAB PO SCH (20:43)
[2020-03-04] MEDS: EZETIMIBE 10 MG TAB PO SCH (20:43)
[2020-03-05] VITALS (8 sets, daily range): BP systolic 106–124; BP diastolic 58–91
[2020-03-05] MEDS: LEVOTHYROXINE SODIUM 25 MCG TABLET PO SCH (05:46)
[2020-03-05] MEDS: MEROPENEM 500MG/ NS 50ML 50 ML IV SCH ×3 (05:46→20:27)
[2020-03-05] MEDS: LEVOTHYROXINE SODIUM 112 MCG TAB PO SCH (05:46)
[2020-03-05] MEDS: SALMETEROL/FLUTICASONE 500/50 INH SCH (07:26)
[2020-03-05] MEDS: CITALOPRAM HYDROBROMIDE 20 MG TAB PO SCH (08:07)
[2020-03-05] MEDS: PANTOPRAZOLE SOD 40 MG TABEC PO SCH (08:07)
[2020-03-05] MEDS: METOPROLOL SUCCINATE 25 MG TAB XL PO SCH (08:08)
[2020-03-05] MEDS: HYDROCODONE/APAP 10MG-325MG TAB PO PRN ×3 (08:59→17:39)
[2020-03-05] MEDS: INSULIN LISPRO 100 UNIT/1 ML 3ML VIAL SQ SCH ×4 (10:27→20:43)
[2020-03-05] MEDS: MORPHINE SULFATE INJ 4 MG/ML INJ 1ML IV PRN ×2 (16:09→21:30)
[2020-03-05] MEDS: EZETIMIBE 10 MG TAB PO SCH (20:27)
[2020-03-05] MEDS: ATORVASTATIN 40 MG TAB PO SCH (20:27)
[2020-03-06] VITALS (7 sets, daily range): BP systolic 98–115; BP diastolic 55–77
[2020-03-06] MEDS: HYDROCODONE/APAP 10MG-325MG TAB PO PRN (03:33)
[2020-03-06] MEDS: LEVOTHYROXINE SODIUM 25 MCG TABLET PO SCH (06:16)
[2020-03-06] MEDS: LEVOTHYROXINE SODIUM 112 MCG TAB PO SCH (06:16)
[2020-03-06] MEDS: MEROPENEM 500MG/ NS 50ML 50 ML IV SCH ×3 (06:16→22:00)
[2020-03-06 06:31] LABS: BASOPHILS % 0.4 % (0.0-1.0); EOSINOPHILS # (AUTO) 0.1 (0.0-0.4); EOSINOPHILS % 0.9 % (0.0-6.0); HEMOGLOBIN 8.5 g/dL (14.0-18.0); LYMPHOCYTES # (AUTO) 3.1 (1.0-3.2); LYMPHOCYTES % 40.7 % (18.0-39.1); MEAN CORPUSCULAR HEMOGLOBIN 28.6 pg (28-32); MEAN CORPUSCULAR HGB CONC 32.7 g/dL (31-35); MEAN CORPUSCULAR VOLUME 87.5 fL (81-99); MONOCYTES % 13.2 % (4.4-11.3); NEUTROPHILS # (AUTO) 3.3 (2.1-6.9); NEUTROPHILS % 44.3 % (38.7-80.0); PLATELET COUNT 241 x10e3/uL (140-360); RED BLOOD COUNT 2.97 x10e6/uL (4.3-5.7); RED CELL DISTRIBUTION WIDTH 15.9 % (11.7-14.4)
[2020-03-06 07:05] LABS: BLOOD UREA NITROGEN 11 mg/dL (7-26); BUN/CREATININE RATIO 14 (6-25); CALCIUM 7.8 mg/dL (8.4-10.2); CARBON DIOXIDE 26 mmol/L (22-29); CHLORIDE 102 mmol/L (98-107); CREATININE, SERUM 0.77 mg/dL (0.72-1.25); EST GLOMERULAR FILTRATION RATE > 60 ML/MIN (60-); GLUCOSE 157 mg/dL (74-118); SODIUM 136 mmol/L (136-145)
[2020-03-06] MEDS: SALMETEROL/FLUTICASONE 500/50 INH SCH (07:10)
[2020-03-06] MEDS: INSULIN LISPRO 100 UNIT/1 ML 3ML VIAL SQ SCH ×4 (07:30→21:00)
[2020-03-06] MEDS: PANTOPRAZOLE SOD 40 MG TABEC PO SCH (08:10)
[2020-03-06] MEDS: CITALOPRAM HYDROBROMIDE 20 MG TAB PO SCH (09:46)
[2020-03-06] MEDS: METOPROLOL SUCCINATE 25 MG TAB XL PO SCH (09:46)
[2020-03-06] MEDS: ATORVASTATIN 40 MG TAB PO SCH (21:33)
[2020-03-06] MEDS: EZETIMIBE 10 MG TAB PO SCH (21:33)
[2020-03-07 01:15] VITALS: BP 124/58
[2020-03-07 05:09] VITALS: BP 136/68
[2020-03-07] MEDS: LEVOTHYROXINE SODIUM 112 MCG TAB PO SCH (06:00)
[2020-03-07] MEDS: LEVOTHYROXINE SODIUM 25 MCG TABLET PO SCH (06:00)
[2020-03-07] MEDS: MEROPENEM 500MG/ NS 50ML 50 ML IV SCH ×2 (06:00→12:09)
[2020-03-07] MEDS: SALMETEROL/FLUTICASONE 500/50 INH SCH (07:18)
[2020-03-07] MEDS: INSULIN LISPRO 100 UNIT/1 ML 3ML VIAL SQ SCH ×3 (07:30→16:30)
[2020-03-07] MEDS: PANTOPRAZOLE SOD 40 MG TABEC PO SCH (08:16)
[2020-03-07] MEDS: CITALOPRAM HYDROBROMIDE 20 MG TAB PO SCH (08:17)
[2020-03-07] MEDS: METOPROLOL SUCCINATE 25 MG TAB XL PO SCH (08:20)
[2020-03-07 08:40] VITALS: BP 122/56
[2020-03-07 08:49] VITALS: BP 122/56
[2020-03-07 11:34] VITALS: BP 123/51
[2020-03-07] MEDS ORDERED: MEROPENEM500 MG IJ (13:51)
[2020-03-07] MEDS ORDERED: ONDANSETRON HCL 4 MG ORAL DISINTEGRATING TAB PO PRN (14:30)
[2020-03-07 15:42] VITALS: BP 122/62
== END 2020-03-07 18:48 | DRG 698 ==
LOC: ER 00:51 → ERHOLD 01:45 → MED/SURG3 02:16 → OBSVTOIN 15:55
PROVIDERS: ADMIT Internal Medicine; ATTEND Internal Medicine
PROC: 30233N1 Transfusion of Nonautologous Red Blood Cells into Peripheral Vein, Percutaneous Approach (ICD-10-PCS; principal; 2020-03-02)
DX: T83.511A Infection and inflammatory reaction due to indwelling urethral catheter, initial encounter (principal); L89.154 Pressure ulcer of sacral region, stage 4; G93.41 Metabolic encephalopathy; N17.9 Acute kidney failure, unspecified; D62 Acute posthemorrhagic anemia; M86.68 Other chronic osteomyelitis, other site; Z16.12 Extended spectrum beta lactamase (ESBL) resistance; E87.1 Hypo-osmolality and hyponatremia; N13.8 Other obstructive and reflux uropathy; N39.0 Urinary tract infection, site not specified; I48.91 Unspecified atrial fibrillation; L89.322 Pressure ulcer of left buttock, stage 2; Z93.3 Colostomy status; E11.622 Type 2 diabetes mellitus with other skin ulcer; I11.0 Hypertensive heart disease with heart failure; I50.9 Heart failure, unspecified; E03.9 Hypothyroidism, unspecified; E78.5 Hyperlipidemia, unspecified; Z88.5 Allergy status to narcotic agent; Z88.0 Allergy status to penicillin; E11.65 Type 2 diabetes mellitus with hyperglycemia; D64.9 Anemia, unspecified; F03.90 Unspecified dementia, unspecified severity, without behavioral disturbance, psychotic disturbance, mood disturbance, and anxiety; I25.10 Atherosclerotic heart disease of native coronary artery without angina pectoris; E11.69 Type 2 diabetes mellitus with other specified complication; B96.1 Klebsiella pneumoniae [K. pneumoniae] as the cause of diseases classified elsewhere; E83.51 Hypocalcemia; N28.1 Cyst of kidney, acquired; N40.1 Benign prostatic hyperplasia with lower urinary tract symptoms; E66.9 Obesity, unspecified; Z68.34 Body mass index [BMI] 34.0-34.9, adult; Z86.73 Personal history of transient ischemic attack (TIA), and cerebral infarction without residual deficits; Z20.828 Contact with and (suspected) exposure to other viral communicable diseases; Z79.84 Long term (current) use of oral hypoglycemic drugs
CPT/HCPCS: 36415; 51700; 71045; 80048; 80053; 81001; 82948; 83540; 84466; 85014; 85025; 85610; 85730; 86850; 86900; 86920; 87086; 87186; 93005; 94664; 99251; 99284; J1817; J2060; J2270; J7050; J7799; P9016; U0002